=== PATIENT | male | born 1950 ===

== ENCOUNTER 2020-11-04 10:19 | Outpatient (REF) | payer MEDICARE, SELFPAY | END 2020-11-04 10:20 | disposition home or self-care (01) | LOC: HO.LAB 10:19 | PROVIDERS: PCP Internal Medicine; Visit Provider Internal Medicine | DX: Z20.828 Contact with and (suspected) exposure to other viral communicable diseases (principal) | CPT/HCPCS: C9803; U0003 ==

== ENCOUNTER 2020-11-16 09:52 | Emergency (ER) | payer MEDICARE, SELFPAY ==
[2020-11-16 10:07] VITALS: BP 137/61; PULSE 88; RESP 18; TEMP 37.3; O2SAT 100; BMI 32.0
[2020-11-16 11:14] LABS: Basophils Percent Auto 0.2 % (0-2); Eosinophils Percent Auto 0.6 % (0-4); Hematocrit 34.2 % (42-52); Hemoglobin 11.1 g/dl (14.0-18.0); Imm Gran Abs Auto 0.01 X10*3/uL (0.00-0.03); Imm Gran Pct Auto 0.2 % (0.0-0.4); Lymphocytes Absolute Auto 0.8 X10*3/uL (1.2-4.9); Lymphocytes Percent Auto 16.9 % (20-40); MANUAL DIFF FLAG NO; Mean Corpuscular HGB Conc 32.5 g/dl (31.0-36.0); Mean Corpuscular Hemoglobin 31.4 pg (27.0-33.0); Mean Corpuscular Volume 96.9 fL (80-98); Mean Platelet Volume 9.5 fL (9.4-12.4); Monocytes Absolute Auto 0.5 X10*3/uL (0.1-1.2); Monocytes Percent Auto 10.6 % (2-11); Neutrophils Absolute Auto 3.5 X10*3/uL (2.0-8.3); Neutrophils Percent Auto 71.5 % (45-73); Platelet Count 165 X10*3/uL (160-400); Red Blood Count 3.53 X10*6/uL (4.60-5.80); Red Cell Distribution Width 12.7 % (11.0-16.0); White Blood Count 4.9 X10*3/uL (4.8-10.8)
--- NOTE | 2020-11-16 11:37 | CT_ITS ---
EXAMINATION: CT ABDOMEN AND PELVIS WITHOUT CONTRAST CLINICAL INFORMATION: Epigastric and right-sided abdominal pain. COMPARISON: 01/01/2014 TECHNIQUE: Multidetector volumetric imaging was performed from the superior aspect of the liver through the pubic symphysis. Sagittal and coronal reformatted images were obtained on the technologist's workstation. This CT examination was performed using dose optimization techniques as appropriate, variously including the following: *Automated exposure control *Adjustment of mA and/or kV according to patient size (this includes techniques or standardized protocols for targeted exams where dose is matched to indication/reason for exam; i.e. extremities or head) *Use of iterative reconstruction technique DLP: 682 mGy-cm FINDINGS: LUNG BASES: There are scattered small patchy subpleural groundglass opacities at both posterior bases with linear scar versus disc atelectasis on the right. No effusion. LIVER, GALLBLADDER, AND BILIARY TREE: Liver is normal in size and smooth in contour and uniform in attenuation. There is been prior cholecystectomy. No focal hepatic parenchymal lesion. No biliary ductal dilatation. Common duct unremarkable. PANCREAS: Unremarkable. SPLEEN: Unremarkable. ADRENAL GLANDS: Unremarkable. KIDNEYS AND URETERS: There is bilateral cortical thinning kidneys. There is no hydronephrosis, hydroureter, urinary tract calculi, or perinephric stranding. Scattered small bilateral cysts of water attenuation are seen under 2 cm. There are some scattered renal vascular calcifications. BLADDER: Unremarkable. GASTROINTESTINAL TRACT: No bowel obstruction or inflammatory changes in the bowel or mesentery. The appendix is normal. There is no ascites or fluid collection. ABDOMINAL WALL: Small bilateral inguinal fat-containing hernias. LYMPH NODES: No lymphadenopathy. VASCULAR: Atherosclerotic calcifications aorta, iliacs, and renal arteries. PELVIC VISCERA: Enlarged prostate measuring approximately 4.2 x 6.3 x 4.9 cm. Seminal vesicles symmetric. OSSEOUS STRUCTURES: No acute bony abnormality. CT/CT abdomen pelvis wo con IMPRESSION: 1. No inflammatory changes in abdomen or pelvis. Normal appendix. No ascites. 2. Prior cholecystectomy. No ductal dilatation. 3. No hydronephrosis or urinary tract calculi. Small bilateral renal cysts and bilateral renal cortical thinning. 4. Enlarged prostate.
[2020-11-16 11:41] VITALS: BP 150/66; PULSE 83; RESP 18; TEMP 37.3; O2SAT 99
[2020-11-16] MEDS: ondansetron HCL 4 MG/2 ML VIAL IVPUSH (11:45)
[2020-11-16] MEDS: Famotidine/PF 20 MG/2 ML VIAL IVPUSH (11:50)
[2020-11-16] MEDS: Magnesium Hydrox/Alum Hydrox 30 ML ORAL.SUSP PO (11:50)
[2020-11-16 12:17] LABS: INTERNATIONAL NORM RATIO 1.1 (0.9-1.1); Prothrombin Time 12.8 SEC (10.8-13.0)
[2020-11-16 12:20] LABS: Partial Thromboplastin Time 29.6 SEC (24.1-38.0)
[2020-11-16 12:48] LABS: Influenza A PCR NEGATIVE (Negative); Influenza B PCR NEGATIVE (Negative); Resp Syncy Virus RNA Qual PCR NEGATIVE (Negative); SARS COV2 PCR INHOUSE POSITIVE (Negative)
[2020-11-16 12:52] LABS: Alanine Aminotransferase 29 U/L (0-40); Albumin Level 3.7 g/dL (3.5-5.0); Alkaline Phosphatase 67 U/L (39-117); Anion Gap 20 (12-20); Aspartate Amino Transferase 24 U/L (5-37); Bilirubin Direct 0.2 mg/dL (0.0-0.5); Bilirubin Total 0.4 mg/dL (0.0-1.0); Blood Urea Nitrogen 51 mg/dL (9-16); Carbon Dioxide 25 mmol/L (22-29); Chloride 101 mmol/L (96-108); Creatinine Clr Calc Pharmacy 8.4; Estimated Glomerular Filt Rate 6; Glucose Random 84 mg/dL (60-115); Potassium 5.1 mmol/l (3.3-5.1); Sodium 141 mmol/L (135-145); Total Protein 6.7 g/dL (6.5-8.0)
[2020-11-16 13:03] LABS: Lipase 184 U/L (8-78)
--- NOTE | 2020-11-16 13:14 | ED_ITS ---
HPI - Nausea/Vomiting/Diarrhea General Chief complaint: Abdominal Pain Stated complaint: vomiting for a week Time Seen by Provider: 11/16/20 11:21 Source: patient Mode of arrival: ambulatory History of Present Illness HPI Narrative: 70-year-old male with a past medical history of diabetes, hypertension, CKD on dialysis Monday/Monday, presenting to the ED complaining of epigastric abdominal pain, nausea, vomiting, and decreased p.o. intake x1 week. States last received dialysis on Monday and was scheduled for today but missed it. Denies fever, chills, cough, chest pain/shortness of breath, LE edema, sick contacts, suspicious food intake MD elicited complaint: nausea, vomiting and abdominal pain Related Data Previous Rx's Medication Instructions Recorded albuterol sulfate 2 puff INHALATION Q4-6H PRN #6.7 g 11/16/20 azithromycin See Rx Instructions .ROUTE 11/16/20 .COMPLEX #6 tab Allergies Allergy/AdvReac Type Severity Reaction Status Date / Time Penicillins [PENICILLINS] Allergy Unknown UNKNOWN Verified 11/16/20 10:10 Review of Systems Review of Systems: Constitutional: No Weight loss, No Fever, No Chills, No Night Sweats, No Fatigue, No Malaise Cardiovascular: No Chest Pain, No SOB Respiratory: No Cough, No Sputum, No Wheezing, No Smoke Exposure, No Dyspnea Gastrointestinal: + Nausea, + Vomiting, No Diarrhea, No Constipation, + Abdominal pain Genitourinary: No irregular bleeding, No Dysuria, No Urinary Frequency, No Hematuria Musculoskeletal: No joint pain, No Myalgias, No Joint Swelling Skin: No Skin Lesions, No rash Yes all other systems are reviewed and are negative [facility] Past Medical History Attestation statement: The following information was validated with the patient. Medical History (Updated 11/16/20 @ 15:16 by MARTHA Chavez) Diabetes HTN (hypertension) Kidney failure Social History Social History Smoked in Last 30 Days: No Use of substances other than those prescribed or required for medical reasons: No Advance Directives: No Advance Directives Information Provided: Yes Physical Exam Vital Signs: Vital Signs: Last Vital Signs Temp 99.2 F 11/16/20 11:41 Pulse 83 11/16/20 11:41 Resp 18 11/16/20 11:41 BP 150/66 H 11/16/20 11:41 Pulse Ox 99 11/16/20 11:41 Body Mass Index 32.0 Const: General: cooperative and healthy appearing Orientation/consciousness: patient oriented x3 Limitations: no limitations HENMT: Head: Yes normal to inspection Ears: hearing grossly normal bilaterally General nose exam: Normal external nose present Face and sinus: Yes normal facial exam Eyes: General: appearance normal, both eyes and all related structures EOM: EOMs intact bilaterally Neck: Neck: Yes normal visual inspection and Yes no meningeal signs Resp: Effort & Inspection: normal respiratory effort Auscultation: clear to auscultation bilaterally and no wheezes Cardio: Rate: regular rate Heart sounds: S1 normal heart sound present and S2 normal heart sound present GI: Inspection: Yes normal to inspection Palpation (GI): Soft to palpation, Tenderness to palpation present (GI) in the epigastrum, in the RLQ and in the RUQ, no guarding and not rigid Skin: Rashes: no rashes Wounds: no wounds Neuro: General: patient oriented x3 and no meningeal signs Extrem: General: Yes normal to inspection Course Course Course Narrative: * BUN/ creatinine elevated greater than baseline, as expected as patient missed dialysis today * COVID-19 positive * CT without inflammatory changes in the abdomen or pelvis. Normal appendix. 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 No indication for need of emergent dialysis at present. Lab and imaging results discussed with patient including need for dialysis tomorrow which he understands and feels safe for discharge home MDM - Nausea/Vomiting/Diarrhea MDM Narrative Medical decision making narrative: 70-year-old male with a past medical history of diabetes, hypertension, CKD on dialysis Monday/Monday, presenting to the ED complaining of epigastric abdominal pain, nausea, vomiting, and decreased p.o. intake x1 week. On exam VSS, NAD/well appearing, abdomen soft with RUQ/RLQ and epigastric ttp, no rebound or guarding. Concern for cholecystitis/cholelithiasis vs pancreatitis vs gastroenteritis/GERD vs appendicitis vs viral syndrome/COVID-19. Rule out metabolic abnormalities. Plan: EKG, labs, UA, COVID-19 testing, CT AP, reassess Lab Data Result diagrams: 11/16/20 11:08 11/16/20 12:06 Labs: Lab Results 11/16/20 11/16/20 11/16/20 Range/Units 11:08 11:08 12:02 WBC 4.9 (4.8-10.8) X10*3/uL RBC 3.53 L (4.60-5.80) X10*6/uL Hgb 11.1 L (14.0-18.0) g/dl Hct 34.2 L (42-52) % MCV 96.9 (80-98) fL MCH 31.4 (27.0-33.0) pg MCHC 32.5 (31.0-36.0) g/dl RDW 12.7 (11.0-16.0) % Plt Count 165 (160-400) X10*3/uL MPV 9.5 (9.4-12.4) fL Immature Gran % (Auto) 0.2 (0.0-0.4) % Neut % (Auto) 71.5 (45-73) % Lymph % (Auto) 16.9 L (20-40) % [place] % (Auto) 10.6 (2-11) % Eos % (Auto) 0.6 (0-4) % Baso % (Auto) 0.2 (0-2) % Lymph # (Auto) 0.8 L (1.2-4.9) X10*3/uL [place] # (Auto) 0.5 (0.1-1.2) X10*3/uL Eos # (Auto) 0.0 (0.0-0.4) X10*3/uL Baso # (Auto) 0.0 (0.0-0.2) X10*3/uL Abs Immat Gran (auto) 0.01 (0.00-0.03) X10*3/uL Absolute Neuts (auto) 3.5 (2.0-8.3) X10*3/uL Absolute Nucleated RBC 0.000 (0.0-0.012) X10*3/uL Nucleated RBC % (auto) 0.0 (0.0-0.2) /100WBC PT (10.8-13.0) SEC INR (0.9-1.1) APTT (24.1-38.0) SEC Sodium Cancelled Potassium Cancelled Chloride Cancelled Carbon Dioxide Cancelled Anion Gap Cancelled BUN Cancelled Creatinine Cancelled Estim Creat Clear Calc Cancelled Estimated GFR Cancelled Random Glucose Cancelled Calcium Cancelled Magnesium Cancelled Ferritin (20-250) ng/mL Total Bilirubin Cancelled Direct Bilirubin Cancelled AST Cancelled ALT Cancelled Alkaline Phosphatase Cancelled Lactate Dehydrogenase (118-273) U/L C-Reactive Protein (< or = 0.50) mg/dL Total Protein Cancelled Albumin Cancelled Lipase Cancelled Procalcitonin ng/mL Coronavirus (PCR) POSITIVE A (Negative) Influenza Type A (PCR) NEGATIVE (Negative) Influenza Type B (PCR) NEGATIVE (Negative) RSV RNA Qual (PCR) NEGATIVE (Negative) 11/16/20 11/16/20 11/16/20 Range/Units 12:06 12:06 13:04 WBC (4.8-10.8) X10*3/uL RBC (4.60-5.80) X10*6/uL Hgb (14.0-18.0) g/dl Hct (42-52) % MCV (80-98) fL MCH (27.0-33.0) pg MCHC (31.0-36.0) g/dl RDW (11.0-16.0) % Plt Count (160-400) X10*3/uL MPV (9.4-12.4) fL Immature Gran % (Auto) (0.0-0.4) % Neut % (Auto) (45-73) % Lymph % (Auto) (20-40) % [place] % (Auto) (2-11) % Eos % (Auto) (0-4) % Baso % (Auto) (0-2) % Lymph # (Auto) (1.2-4.9) X10*3/uL [place] # (Auto) (0.1-1.2) X10*3/uL Eos # (Auto) (0.0-0.4) X10*3/uL Baso # (Auto) (0.0-0.2) X10*3/uL Abs Immat Gran (auto) (0.00-0.03) X10*3/uL Absolute Neuts (auto) (2.0-8.3) X10*3/uL Absolute Nucleated RBC (0.0-0.012) X10*3/uL Nucleated RBC % (auto) (0.0-0.2) /100WBC PT 12.8 (10.8-13.0) SEC INR 1.1 (0.9-1.1) APTT 29.6 (24.1-38.0) SEC Sodium 141 Potassium 5.1 Chloride 101 Carbon Dioxide 25 Anion Gap 20 BUN 51 H Creatinine 8.54 H* Estim Creat Clear Calc 8.4 Estimated GFR 6 Random Glucose 84 Calcium 7.0 L Magnesium 2.0 Ferritin 3338 H (20-250) ng/mL Total Bilirubin 0.4 Direct Bilirubin 0.2 AST 24 ALT 29 Alkaline Phosphatase 67 Lactate Dehydrogenase 238 (118-273) U/L C-Reactive Protein 9.92 H (< or = 0.50) mg/dL Total Protein 6.7 Albumin 3.7 Lipase 184 H Procalcitonin 0.43 ng/mL Coronavirus (PCR) (Negative) Influenza Type A (PCR) (Negative) Influenza Type B (PCR) (Negative) RSV RNA Qual (PCR) (Negative) Discharge Plan Discharge Clinical Impression: COVID-19 Patient Disposition: Home, Self-Care Instructions: COVID-19 (Coronavirus Disease 2019) (ED) Additional Instructions: YOU HAVE COVID-19 YOU ALSO NEED DIALYSIS TOMORROW, WE SPOKE TO THE PIPE FINISHER AT [facility], YOU SHOULD BE SCHEDULED FOR TOMORROW AT THE [facility] AZITHROMYCIN AN ANTIBIOTIC, TAKE PRESCRIBED IN ADDITION USE ALBUTEROL INHALER NEEDED FOR SHORTNESS OF BREATH IF YOU FOR SOME REASON ARE UNABLE TO OBTAIN DIALYSIS TOMORROW RETURN TO THE EMERGENCY DEPARTMENT YOU NEED TO STAY HYDRATED AT HOME IF YOU DEVELOP CONSTANT WORSENING CHEST PAIN, SHORTNESS OF BREATH, ABDOMINAL PAIN, OR ARE UNABLE TO EAT OR DRINK RETURN TO THE ED IMMEDIATELY Prescriptions: New azithromycin 250 mg tablet See Rx Instructions .ROUTE .COMPLEX Qty: 6 RF: 0 albuterol sulfate 90 mcg/actuation HFA aerosol inhaler 2 puff inhalation Q4-6H PRN (Reason: shortness of breath or wheezing) Qty: 6.7 RF: 0 Referrals: Physician,None [Primary Care Provider] - 1 day (You need to follow-up for dialysis tomorrow)
--- NOTE | 2020-11-16 13:16 | XR_ITS ---
EXAMINATION: XR CHEST CLINICAL INFORMATION: COVID-19 COMPARISON: Chest radiographs 03/13/2017 TECHNIQUE: Portable upright AP view of the chest was obtained. FINDINGS: The lungs are clear. There is no airspace consolidation or definite groundglass opacity. No effusion. The costophrenic sulci are clear. The heart is normal in size. The hilar and mediastinal contours and visualized bony structures are unremarkable. Old healed mid left clavicular fracture again seen. XR/XR chest 1V IMPRESSION: Unremarkable examination.
[2020-11-16 14:07] LABS: C Reactive Protein 9.92 mg/dL (< or = 0.50); Lactate Dehydrogenase 238 U/L (118-273)
[2020-11-16 14:36] LABS: Procalcitonin 0.43 ng/mL
[2020-11-16 15:05] LABS: Ferritin 3338 ng/mL (20-250)
--- NOTE | 2020-11-16 15:17 | ECG_ITS ---
Test Reason : CHEST PAIN Blood Pressure : / mmHG Vent. Rate : 086 BPM Atrial Rate : 086 BPM P-R Int : 142 ms QRS Dur : 070 ms QT Int : 388 ms P-R-T Axes : 008 -21 -02 degrees QTc Int : 464 ms Sinus rhythm with Premature atrial complexes Nonspecific ST abnormality Abnormal ECG No previous ECGs available Referred By: Marissa Mackey Electronically Signed By:FARRAH HERNANDEZ
== END 2020-11-16 17:19 | disposition home or self-care (01) ==
PROVIDERS: Physician Assistant; Emergency Provider Emergency Medicine Emergency Medical Services
DX: U07.1 COVID-19 (principal); R10.13 Epigastric pain; R11.2 Nausea with vomiting, unspecified; Z79.899 Other long term (current) drug therapy
CPT/HCPCS: 0241U; 36415; 71045; 74176; 80048; 80076; 82728; 83615; 83690; 83735; 84145; 85025; 85610; 85730; 86140; 93005; 96374; 96375; 99284; J2405

== ENCOUNTER 2020-11-19 16:49 | Emergency (ER) | payer MEDICARE, SELFPAY ==
[2020-11-19 17:30] VITALS: BP 135/62; PULSE 90; RESP 18; TEMP 36.9; O2SAT 98; BMI 31.4
[2020-11-19 17:51] VITALS: BP 146/57; PULSE 85; RESP 18; TEMP 36.9; O2SAT 98
[2020-11-19 18:00] VITALS: BP 146/57; PULSE 85; RESP 18; TEMP 36.9; O2SAT 98
--- NOTE | 2020-11-19 18:00 | ED_ITS ---
HPI - General Adult General Chief complaint: General Medical Stated complaint: vomiting covid positive Time Seen by Provider: 11/19/20 17:06 Source: patient Mode of arrival: ambulatory History of Present Illness HPI narrative: 70-year-old male with a past medical history of diabetes, hypertension, COVID-19 positive, CKD on dialysis Monday/Monday (last received on Monday, due on Monday), presenting to the ED complaining of nausea, vomiting, and decreased p.o. intake. Reports about 3-4 episodes of nonbloody emesis daily, with inability tolerate p.o. Reports abdominal discomfort with emesis. Denies fever, chills, cough, CP/SOB, dysuria/hematuria, suspicious food intake Onset (ago): day(s) Related Data Previous Rx's Medication Instructions Recorded albuterol sulfate 2 puff INHALATION Q4-6H PRN #6.7 g 11/16/20 azithromycin See Rx Instructions .ROUTE 11/16/20 .COMPLEX #6 tab ondansetron HCl [Zofran] 4 mg PO Q8H PRN #8 tab 11/19/20 Allergies Allergy/AdvReac Type Severity Reaction Status Date / Time Penicillins [PENICILLINS] Allergy Unknown UNKNOWN Verified 11/16/20 10:10 Review of Systems Review of Systems: Constitutional: No Weight loss, No Fever, No Chills Cardiovascular: No Chest Pain, No SOB, No Dyspnea on Exertion Respiratory: No Cough, No Sputum, No Wheezing, No Smoke Exposure, No Dyspnea Gastrointestinal: + Nausea, + Vomiting, + Diarrhea, No Constipation, No Abdominal pain Genitourinary: No irregular bleeding, No Dysuria, No Urinary Frequency, No Hematuria Musculoskeletal: No joint pain, No Myalgias, No Joint Swelling Skin: No Skin Lesions, No rash Yes all other systems are reviewed and are negative PMFSH Past Medical History Attestation statement: The following information was validated with the patient. Medical History (Updated 11/19/20 @ 22:06 by MARTHA Chavez) Diabetes HTN (hypertension) Kidney failure Social History Social History Alcohol intake: current Alcohol intake frequency: holidays/special occasions on ly Smoking Status: Former smoker Smoked in Last 30 Days: No Use of substances other than those prescribed or required for medical reasons: No Advance Directives: No Advance Directives Information Provided: No Physical Exam Vital Signs: Vital Signs: Last Vital Signs Temp 98.5 F 11/19/20 21:30 Pulse 85 11/19/20 21:30 Resp 16 11/19/20 21:30 BP 148/61 H 11/19/20 21:30 Pulse Ox 99 11/19/20 21:30 Body Mass Index 31.4 Const: General: cooperative Orientation/consciousness: patient oriented x3 Limitations: no limitations HENMT: Head: Yes normal to inspection Ears: hearing grossly normal bilaterally General nose exam: Normal external nose present Face and sinus: Yes normal facial exam Eyes: General: appearance normal, both eyes and all related structures EOM: EOMs intact bilaterally Neck: Neck: Yes normal visual inspection and Yes no meningeal signs Resp: Effort & Inspection: normal respiratory effort Auscultation: clear to auscultation bilaterally, no rales, no rhonchi and no wheezes Cardio: Rate: regular rate Heart sounds: S1 normal heart sound present and S2 normal heart sound present GI: Inspection: Yes normal to inspection Palpation (GI): Soft to palpation, Tenderness to palpation present (GI) in the epigastrum and in the RUQ, no guarding and not rigid Skin: Rashes: no rashes Wounds: no wounds Neuro: General: patient oriented x3 and no meningeal signs Gait exam (Neuro): Normal gait present Extrem: Other: no LE edema General: Yes normal to inspection Course Course Course Narrative: * Creatinine 8.0 (baseline 4-5), lipase 197, likely from being HD patient> no evidence of fluid overload. likely from dehydration. No indication for emergent HD at this time. * UA unremarkable * 2200- pt tolerated PO xenia berta and saltines in the ED without nausea or vomiting. Reports he has scheduled dialysis on Monday due to holding tomorrow. I stressed to patient ports of staying hydrated at, and need for dialysis Monday. He verbalized understanding and feels safe for discharge home Medical Decision Making MDM Narrative Medical decision making narrative: 70-year-old male with a past medical history of diabetes, hypertension, COVID-19 positive, CKD on dialysis Monday/Monday (last received on Monday, due on Monday), presenting to the ED complaining of nausea, vomiting, and decreased p.o. intake. On exam VSS, NAD, well appearing, abdomen soft +RUQ/epigastric ttp. No rebound or guarding. Concern for COVID19 sx vs dehydration vs metabolic abnls. Low concern for intraabdominal pathology with neg CT on 11/16 Plan: Labs, UA, IVF, PO challenge, reassess Lab Data Result diagrams: 11/19/20 18:15 11/19/20 20:23 Labs: Lab Results 11/19/20 11/19/20 11/19/20 Range/Units 18:15 18:15 18:15 WBC 6.0 (4.8-10.8) X10*3/uL RBC 3.42 L (4.60-5.80) X10*6/uL Hgb 10.9 L (14.0-18.0) g/dl Hct 32.9 L (42-52) % MCV 96.2 (80-98) fL MCH 31.9 (27.0-33.0) pg MCHC 33.1 (31.0-36.0) g/dl RDW 12.7 (11.0-16.0) % Plt Count 214 D (160-400) X10*3/uL MPV 9.4 (9.4-12.4) fL Immature Gran % (Auto) 0.5 H (0.0-0.4) % Neut % (Auto) 77.8 H (45-73) % Lymph % (Auto) 12.0 L (20-40) % [place] % (Auto) 9.3 (2-11) % Eos % (Auto) 0.2 (0-4) % Baso % (Auto) 0.2 (0-2) % Lymph # (Auto) 0.7 L (1.2-4.9) X10*3/uL [place] # (Auto) 0.6 (0.1-1.2) X10*3/uL Eos # (Auto) 0.0 (0.0-0.4) X10*3/uL Baso # (Auto) 0.0 (0.0-0.2) X10*3/uL Abs Immat Gran (auto) 0.03 (0.00-0.03) X10*3/uL Absolute Neuts (auto) 4.7 (2.0-8.3) X10*3/uL Absolute Nucleated RBC 0.000 (0.0-0.012) X10*3/uL Nucleated RBC % (auto) 0.0 (0.0-0.2) /100WBC Hold Blue Top SEE NOTE Sodium Cancelled Potassium Cancelled Chloride Cancelled Carbon Dioxide Cancelled Anion Gap Cancelled BUN Cancelled Creatinine Cancelled Estim Creat Clear Calc Cancelled Estimated GFR Cancelled Random Glucose Cancelled Calcium Cancelled Magnesium Cancelled Total Bilirubin Cancelled Direct Bilirubin Cancelled AST Cancelled ALT Cancelled Alkaline Phosphatase Cancelled Total Protein Cancelled Albumin Cancelled Lipase Cancelled Urine Color Urine Appearance Urine pH (5.0-8.0) Ur Specific [place] (1.005-1.025) Urine Protein (NEG-TRACE) MG/DL Urine Glucose (UA) (NEG) MG/DL Urine Ketones (NEG) MG/DL Urine Blood (NEG) Urine Nitrite (NEG) Ur Leukocyte Esterase (NEG) Urine RBC (0) /HPF Urine WBC (0-4) /HPF Ur Squamous Epith Cells /LPF Urine Bacteria /LPF 11/19/20 11/19/20 Range/Units 20:23 Unknown WBC (4.8-10.8) X10*3/uL RBC (4.60-5.80) X10*6/uL Hgb (14.0-18.0) g/dl Hct (42-52) % MCV (80-98) fL MCH (27.0-33.0) pg MCHC (31.0-36.0) g/dl RDW (11.0-16.0) % Plt Count (160-400) X10*3/uL MPV (9.4-12.4) fL Immature Gran % (Auto) (0.0-0.4) % Neut % (Auto) (45-73) % Lymph % (Auto) (20-40) % [place] % (Auto) (2-11) % Eos % (Auto) (0-4) % Baso % (Auto) (0-2) % Lymph # (Auto) (1.2-4.9) X10*3/uL [place] # (Auto) (0.1-1.2) X10*3/uL Eos # (Auto) (0.0-0.4) X10*3/uL Baso # (Auto) (0.0-0.2) X10*3/uL Abs Immat Gran (auto) (0.00-0.03) X10*3/uL Absolute Neuts (auto) (2.0-8.3) X10*3/uL Absolute Nucleated RBC (0.0-0.012) X10*3/uL Nucleated RBC % (auto) (0.0-0.2) /100WBC Hold Blue Top Sodium 140 Potassium 4.9 Chloride 101 Carbon Dioxide 26 Anion Gap 18 BUN 48 H Creatinine 8.09 H* Estim Creat Clear Calc 8.8 Estimated GFR 7 Random Glucose 91 Calcium 6.6 L Magnesium 2.1 Total Bilirubin 0.3 Direct Bilirubin < 0.2 AST 28 ALT 25 Alkaline Phosphatase 64 Total Protein 6.5 Albumin 3.4 L Lipase 197 H Urine Color YELLOW Urine Appearance CLEAR Urine pH 8.5 H (5.0-8.0) Ur Specific [place] 1.015 (1.005-1.025) Urine Protein 2+ H (NEG-TRACE) MG/DL Urine Glucose (UA) NEG (NEG) MG/DL Urine Ketones NEG (NEG) MG/DL Urine Blood TRACE (NEG) Urine Nitrite NEG (NEG) Ur Leukocyte Esterase NEG (NEG) Urine RBC 1-4 (0) /HPF Urine WBC 0-2 (0-4) /HPF Ur Squamous Epith Cells TRACE /LPF Urine Bacteria TRACE /LPF Discharge Plan Discharge Clinical Impression: Nausea & vomiting Qualifiers: Vomiting type: unspecified Vomiting Intractability: non-intractable Qualified Code(s): R11.2 - Nausea with vomiting, unspecified Patient Disposition: Home, Self-Care Instructions: Acute Nausea and Vomiting (ED) Additional Instructions: You need to have dialysis on Monday as scheduled You need to stay hydrated at home, drink plenty of fluids, make sure you are eating Zofran as antinausea medication, take as needed for nausea If you are unable to eat or drink, develops fever, chest pain, shortness breath, or abdominal pain return to the ED immediately Prescriptions: New ondansetron HCl [Zofran] 4 mg tablet 4 mg PO Q8H PRN (Reason: nausea and vomiting) Qty: 8 RF: 0 No Action azithromycin 250 mg tablet See Rx Instructions .ROUTE .COMPLEX Qty: 6 RF: 0 albuterol sulfate 90 mcg/actuation HFA aerosol inhaler 2 puff inhalation Q4-6H PRN (Reason: shortness of breath or wheezing) Qty: 6.7 RF: 0 Referrals: Physician,Unknown [Primary Care Provider] - 2 days
[2020-11-19 18:22] LABS: MANUAL DIFF FLAG NO
[2020-11-19] MEDS: 0.9 % Sodium Chloride 1,000 ML 500 ML IVCONT (18:22)
[2020-11-19] MEDS: ondansetron HCL 4 MG/2 ML VIAL IVPUSH (18:22)
[2020-11-19 18:33] LABS: Basophils Percent Auto 0.2 % (0-2); Eosinophils Percent Auto 0.2 % (0-4); Hematocrit 32.9 % (42-52); Hemoglobin 10.9 g/dl (14.0-18.0); Imm Gran Abs Auto 0.03 X10*3/uL (0.00-0.03); Imm Gran Pct Auto 0.5 % (0.0-0.4); Lymphocytes Absolute Auto 0.7 X10*3/uL (1.2-4.9); Mean Corpuscular HGB Conc 33.1 g/dl (31.0-36.0); Mean Corpuscular Hemoglobin 31.9 pg (27.0-33.0); Mean Corpuscular Volume 96.2 fL (80-98); Mean Platelet Volume 9.4 fL (9.4-12.4); Monocytes Absolute Auto 0.6 X10*3/uL (0.1-1.2); Monocytes Percent Auto 9.3 % (2-11); Neutrophils Absolute Auto 4.7 X10*3/uL (2.0-8.3); Neutrophils Percent Auto 77.8 % (45-73); Platelet Count 214 X10*3/uL (160-400); Red Blood Count 3.42 X10*6/uL (4.60-5.80); Red Cell Distribution Width 12.7 % (11.0-16.0)
[2020-11-19 20:00] VITALS: BP 153/67; PULSE 89; RESP 23; TEMP 37.6; O2SAT 98
[2020-11-19 21:00] LABS: Alanine Aminotransferase 25 U/L (0-40); Albumin Level 3.4 g/dL (3.5-5.0); Alkaline Phosphatase 64 U/L (39-117); Anion Gap 18 (12-20); Aspartate Amino Transferase 28 U/L (5-37); Bilirubin Direct < 0.2 mg/dL (0.0-0.5); Bilirubin Total 0.3 mg/dL (0.0-1.0); Blood Urea Nitrogen 48 mg/dL (9-16); Calcium 6.6 mg/dL (8.4-10.2); Carbon Dioxide 26 mmol/L (22-29); Chloride 101 mmol/L (96-108); Creatinine Clr Calc Pharmacy 8.8; Estimated Glomerular Filt Rate 7; Glucose Random 91 mg/dL (60-115); Magnesium 2.1 mg/dL (1.6-2.6); Potassium 4.9 mmol/l (3.3-5.1); Sodium 140 mmol/L (135-145); Total Protein 6.5 g/dL (6.5-8.0)
[2020-11-19 21:00] LABS: Glucose Urine UA NEG (NEG); Leukocyte Esterase Urine NEG (NEG); Nitrite Urine NEG (NEG); PH 8.5 (5.0-8.0); Specific Gravity - Urine 1.015 (1.005-1.025); Urine Blood TRACE (NEG); Urine Ketones NEG (NEG)
[2020-11-19 21:01] LABS: Appearance Urine CLEAR; Color Urine YELLOW; Urine Protein 2+ MG/DL (NEG-TRACE)
[2020-11-19 21:15] LABS: Lipase 197 U/L (8-78)
[2020-11-19 21:15] LABS: Bacteria Urine TRACE /LPF; Squamous Epithelial Cell Urine TRACE /LPF; WBC Urine 0-2 /HPF (0-4)
[2020-11-19 21:30] VITALS: BP 148/61; PULSE 85; RESP 16; TEMP 36.9; O2SAT 99
[2020-11-19] MEDS: Acetaminophen 325 MG TABLET 650 MG PO (21:30)
--- NOTE | 2020-11-19 21:44 | PC.NURSE ---
SPOKE WITH PATIENT'S DAUGHTER (KEIRA) @ [phone]. AWARE OF PLAN TO OBTAIN ADDITIONAL LABS, WILL CALL WITH UPDATES. MEDICATED ORDERED BY HOANG MAHAN.
--- NOTE | 2020-11-19 21:57 | ECG_ITS ---
Test Reason : [id number] Blood Pressure : / mmHG Vent. Rate : 082 BPM Atrial Rate : 082 BPM P-R Int : 140 ms QRS Dur : 074 ms QT Int : 404 ms P-R-T Axes : 023 -22 004 degrees QTc Int : 472 ms Normal sinus rhythm Normal ECG When compared with ECG of 16-NOV-2020 16:19, Premature atrial complexes are no longer Present Referred By: Marissa Mackey Electronically Signed By:FARRAH HERNANDEZ
[2020-11-19 22:00] VITALS: BP 152/62; PULSE 88; RESP 18; TEMP 36.9; O2SAT 100
== END 2020-11-19 23:18 | disposition home or self-care (01) ==
PROVIDERS: Physician Assistant; Emergency Provider Emergency Medicine
DX: R11.2 Nausea with vomiting, unspecified (principal); I10 Essential (primary) hypertension; Z87.891 Personal history of nicotine dependence; Z79.899 Other long term (current) drug therapy; Z86.19 Personal history of other infectious and parasitic diseases
CPT/HCPCS: 36415; 80048; 80076; 81001; 83690; 83735; 85025; 93005; 96361; 96374; 99284; J2405

== ENCOUNTER 2021-02-04 08:07 | Outpatient (REF) | payer MEDICARE, SELFPAY ==
[2021-02-04 08:56] LABS: MANUAL DIFF FLAG NO
[2021-02-04 09:03] LABS: Basophils Percent Auto 0.6 % (0-2); Eosinophils Absolute Auto 0.2 X10*3/uL (0.0-0.4); Eosinophils Percent Auto 3.1 % (0-4); Hematocrit 31.7 % (42-52); Hemoglobin 10.5 g/dl (14.0-18.0); Imm Gran Abs Auto 0.01 X10*3/uL (0.00-0.03); Imm Gran Pct Auto 0.2 % (0.0-0.4); Lymphocytes Absolute Auto 1.9 X10*3/uL (1.2-4.9); Lymphocytes Percent Auto 29.2 % (20-40); Mean Corpuscular HGB Conc 33.1 g/dl (31.0-36.0); Mean Corpuscular Hemoglobin 32.7 pg (27.0-33.0); Mean Corpuscular Volume 98.8 fL (80-98); Monocytes Absolute Auto 0.6 X10*3/uL (0.1-1.2); Monocytes Percent Auto 9.2 % (2-11); Neutrophils Absolute Auto 3.7 X10*3/uL (2.0-8.3); Neutrophils Percent Auto 57.7 % (45-73); Platelet Count 230 X10*3/uL (160-400); Red Blood Count 3.21 X10*6/uL (4.60-5.80); Red Cell Distribution Width 13.2 % (11.0-16.0); Retic HGB Equivalent 36.5 pg (30.0-35.0); Reticulocyte Percent 1.2 % (0.5-1.8); Reticulocytes Absolute 0.037 X10*6/uL (0.026-0.095); White Blood Count 6.4 X10*3/uL (4.8-10.8)
[2021-02-04 09:25] LABS: Estimated Average Glucose 100 mg/dL; Hemoglobin A1c % 5.1 %
[2021-02-04 09:40] LABS: Creatinine Urine 99.41 mg/dL; Microalbum/Creatinine Ratio Ur 261.5 ug/mg cr
[2021-02-04 10:14] LABS: Alanine Aminotransferase 13 U/L (0-40); Alkaline Phosphatase 79 U/L (39-117); Anion Gap 19 (12-20); Aspartate Amino Transferase 14 U/L (5-37); Bilirubin Total 0.6 mg/dL (0.0-1.0); Blood Urea Nitrogen 75 mg/dL (9-16); Calcium 9.9 mg/dL (8.4-10.2); Carbon Dioxide 24 mmol/L (22-29); Chloride 104 mmol/L (96-108); Cholesterol 265 mg/dL; Estimated Glomerular Filt Rate 5; Glucose Random 84 mg/dL (60-115); HDL Cholesterol 37 mg/dL; Iron 174 mcg/dL (45-160); LDL Cholesterol Calculated 180 mg/dl; Percent Iron Saturation 85 % (15-50); Potassium 4.5 mmol/L (3.3-5.1); Sodium 142 mmol/L (135-145); Total Iron Binding Capacity 204 mcg/dL (228-428); Total Protein 6.9 g/dL (6.5-8.0); Triglycerides 241 mg/dL; Unsaturated Iron Binding 30 ug/dL; Uric Acid 6.5 mg/dL (3.4-7.0)
[2021-02-04 10:15] LABS: Free T4 (Free Thyroxine) 1.06 ng/dL (0.71-1.85); Thyroid Stimulating Hormone 0.92 uIU/mL (0.32-4.0); Vitamin D 25-OH Total 82.8 ng/mL (>30)
[2021-02-04 10:26] LABS: Folate 9.4 ng/mL (> or = 4.0); Vitamin B12 363 pg/mL (200-900)
[2021-02-04 11:55] LABS: Ferritin 1534 ng/mL (20-250)
[2021-02-08 16:11] LABS: Testosterone, Total 310 ng/dL (250-1100)
== END 2021-02-04 08:08 | disposition home or self-care (01) ==
LOC: HO.LAB 08:07
PROVIDERS: PCP Internal Medicine; Visit Provider Internal Medicine
DX: E11.65 Type 2 diabetes mellitus with hyperglycemia (principal); I10 Essential (primary) hypertension; N18.9 Chronic kidney disease, unspecified; D64.9 Anemia, unspecified; E78.00 Pure hypercholesterolemia, unspecified; N52.9 Male erectile dysfunction, unspecified
CPT/HCPCS: 36415; 80053; 80061; 82043; 82306; 82607; 82728; 82746; 83036; 83540; 84403; 84439; 84443; 84550; 85025; 85045

== ENCOUNTER 2021-02-17 08:48 | Outpatient (REF) | payer MEDICARE, SELFPAY ==
--- NOTE | 2021-02-18 08:39 | MHC.AU.ANO ---
Adult Audiological Evaluation Date of Visit: 02/17/21 Reason for Appointment: Patient reports that in October 2020, he was diagnosed with COVID-19. During his bout with COVID-19, he began experiencing constant sounds in both ears that were described as air hissing or rushing. He reports the sound has not gone away or improved since his COVID-19 has resolved, and is becoming bothersome. Patient reports that he typically experiences an ear infection about once a year. He developed an ear infection during his bout with COVID-19, which has long since resolved. Patient feels his overall hearing ability is still good. Has hearing been tested previously?: Previous Hearing Test Results: Patient had yearly hearing screenings by his employer. 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 History: No Medical History: Medical History: COVID-19 in October 2020, Hypertension, Kidney Disease, Type 2 Diabetes Otoscopy: Right Ear: Unremarkable Left Ear: Unremarkable Tympanometry: Tympanometry performed due to: To assess integrity of the middle ear system Right Ear: Slightly Reduced Middle Ear Compliance (Type As) Left Ear: Normal Middle Ear System (Type A) Acoustic Reflexes: Ipsilateral Probe Right: 500 Hz: Absent 1000 Hz: Absent 2000 Hz: Absent 4000 Hz: Absent Probe Left: 500 Hz: Present 1000 Hz: Present 2000 Hz: Present 4000 Hz: Absent Contralateral Probe Right: 500 Hz: Absent 1000 Hz: Absent 2000 Hz: Absent 4000 Hz: Absent Probe Left: 500 Hz: Absent 1000 Hz: Elevated 2000 Hz: Absent 4000 Hz: Absent Otoacoustic Emissions Frequency Range Used: 1.6-8 kHz Right Ear Results: Present 1.6 kHz, Reduced/Absent 2-8 kHz Analysis: Reduced/Absent emissions suggest cochlear dysfunction Left Ear Results: Present 1.6-8 kHz Analysis: Present emissions suggest normal cochlear function Rules out peripheral hearing loss greater than a mild degree Hearing Evaluation: Transducer(s) Used: Insert Earphones Method: Conventional Audiometry Stimuli Used: Pure Tones Right Ear: Description of Hearing: Overall normal/borderline-normal hearing; however, from 500-1500 Hz there is an asymmetry (right ear worse) that is sensorineural in nature. Left Ear: Description of Hearing: Normal 250-3000 Hz, sloping to mild sensorineural hearing loss Speech Recognition Threshold (SRT): Method Used: Recorded Lists Stimuli Used: Spondee Words Right Ear: 15 dBHL Left Ear: 5 dBHL Word Discrimination: Method: Recorded Lists Word Lists Used: NU-6 Right Ear: 100% at 55 dBHL Left Ear: 96% at 55 dBHL Interpretation of Results: Patient presents [id number] infection, with air hissing sounds in both ears that began during his bout with COVID-19 and have not subsided. Today's results suggest the right ear is of particular concern. The ipsilateral and contralateral acoustic reflexes for the right ear are absent, and the left contralateral reflexes were elevated or absent. The majority of the otoacoustic emissions in the right ear are reduced or absent. There is also a mid-frequency sensorineural asymmetry, where the right ear is worse. These objective results were alarming, given that the hearing thresholds in the right ear are within normal/ borderline-normal range. Further retrocochlear work-up may be warranted. Recommendations: Audiological re-evaluation in one year. Referral to Ear, Nose, and Throat is highly recommended to address today's abnormal findings. Amplification is not yet warranted. Diagnosis: Primary Diagnosis: H93.13 Tinnitus, Bilateral Services Performed: Comprehensive Audiological Evaluation (CPT 49879), Limited Otoacoustic Emissions (CPT 84706), Tympanometry and Acoustic Reflexes (CPT 78647) Signature: Provider: Leonarda Mantilla, [facility]
== END 2021-02-17 08:49 | disposition home or self-care (01) ==
LOC: HO.SH 08:48
PROVIDERS: Visit Provider Internal Medicine
DX: H93.13 Tinnitus, bilateral (principal)
CPT/HCPCS: 92550; 92557; 92587

== ENCOUNTER 2021-02-18 14:00 | Outpatient (REF) | payer MEDICARE, SELFPAY ==
--- NOTE | ~2021-02-18 | CT_ITS ---
EXAMINATION: CT CHEST WITHOUT CONTRAST CLINICAL INFORMATION: Solitary pulmonary nodule COMPARISON: 11/16/[address] from 07/05/2017. TECHNIQUE: Multidetector volumetric CT imaging of the chest was done. Axial MIP volume rendering provided. Sagittal and coronal reformatted images were obtained. This CT examination was performed using dose optimization techniques as appropriate, variously including the following: *Automated exposure control *Adjustment of mA and/or kV according to patient size (this includes techniques or standardized protocols for targeted exams where dose is matched to indication/reason for exam; i.e. extremities or head) *Use of iterative reconstruction technique DLP: 347 mGy-cm FINDINGS: PANTOGRAPH TRANSFERRER: Unremarkable. LUNGS: The central airways are patent. There is no dense consolidation. Minimal dependent atelectasis bilaterally. There is new anterior groundglass opacities seen in the left upper lobe with patchy appearance. Right upper lobe fissural nodule, unchanged likely representing a fissural lymph node. Calcified granulomata are noted. 0.2 cm left upper lobe pulmonary nodule on series 5 image 150 is unchanged from prior. No new suspicious pulmonary nodules. MEDIASTINUM: Normal heart size. Coronary artery calcifications. No pericardial effusion. No mediastinal lymphadenopathy. The thyroid gland is unremarkable. PLEURA: There is no pleural effusion. No pleural mass or thickening. No pneumothorax. AXILLA: No lymphadenopathy. UPPER ABDOMEN: Atrophic kidneys are partially imaged. No acute abnormality. OSSEOUS STRUCTURES: No acute or suspicious osseous abnormality. Multilevel degenerative changes of the spine. DISH. CT/CT chest wo con IMPRESSION: No suspicious pulmonary nodules. Previously seen small nodules are unchanged and likely benign. There are increased groundglass opacities in the left upper lobe which favor infectious or inflammatory process. Consider 3-6 month follow-up.
== END 2021-02-18 14:01 | disposition home or self-care (01) ==
LOC: HO.CT 14:00
PROVIDERS: Visit Provider Internal Medicine
DX: R91.1 Solitary pulmonary nodule (principal)
CPT/HCPCS: 71250

== ENCOUNTER 2021-05-11 07:26 | Outpatient (REF) | payer MEDICARE, SELFPAY ==
[2021-05-11 08:43] LABS: Creatinine Urine 153.56 mg/dL
[2021-05-11 09:00] LABS: Alanine Aminotransferase 12 U/L (0-40); Alkaline Phosphatase 86 U/L (39-117); Anion Gap 18 (12-20); Aspartate Amino Transferase 14 U/L (5-37); Bilirubin Total 0.5 mg/dL (0.0-1.0); Blood Urea Nitrogen 41 mg/dL (9-16); Calcium 10.1 mg/dL (8.4-10.2); Carbon Dioxide 26 mmol/L (22-29); Chloride 102 mmol/L (96-108); Cholesterol 291 mg/dL; Estimated Glomerular Filt Rate 8; Glucose Random 132 mg/dL (60-115); HDL Cholesterol 41 mg/dL; LDL Cholesterol Calculated 212 mg/dl; Potassium 4.3 mmol/L (3.3-5.1); Sodium 142 mmol/L (135-145); Total Protein 6.7 g/dL (6.5-8.0); Triglycerides 194 mg/dL
== END 2021-05-11 07:27 | disposition home or self-care (01) ==
LOC: HO.LAB 07:26
PROVIDERS: PCP Internal Medicine; Visit Provider Internal Medicine
DX: E78.00 Pure hypercholesterolemia, unspecified (principal); E11.65 Type 2 diabetes mellitus with hyperglycemia
CPT/HCPCS: 36415; 80053; 80061

== ENCOUNTER 2021-08-10 09:40 | Outpatient (REF) | payer MEDICARE, SELFPAY ==
--- NOTE | ~2021-08-10 | CT_ITS ---
EXAMINATION: CT CHEST WITHOUT CONTRAST CLINICAL INFORMATION: Follow-up pulmonary nodules COMPARISON: Previous chest CT February 2021 TECHNIQUE: Multidetector volumetric CT imaging of the chest was done. Axial MIP volume rendering provided. Sagittal and coronal reformatted images were obtained. This CT examination was performed using dose optimization techniques as appropriate, variously including the following: *Automated exposure control *Adjustment of mA and/or kV according to patient size (this includes techniques or standardized protocols for targeted exams where dose is matched to indication/reason for exam; i.e. extremities or head) *Use of iterative reconstruction technique DLP: 177 mGy-cm FINDINGS: LUNGS: There are increased groundglass attenuation areas in the left upper lobe. This does not appear appreciably changed from February 2021 exam. Largest areas measure approximately 1 cm axial image series 5 and 1.5 x 2.5 cm axial image 178 series 5. Small calcified and noncalcified pulmonary nodules are stable. Largest pulmonary nodule is a 5 mm peripheral or subpleural semisolid left upper lobe nodule axial image 88 series 5. No new pulmonary nodules are seen. There is evidence of mild paraseptal emphysema. No bronchiectasis or evidence of interstitial disease A MEDIASTINUM: The heart is upper normal in size. There is mild coronary artery and aortic valve calcification pericardial effusion. The thoracic aorta is normal in caliber. There are no enlarged hilar or mediastinal lymph nodes. PLEURA: There is no pleural effusion. No pleural mass or thickening. AXILLA: No chest wall mass or enlarged axillary lymph nodes are seen. There is a partially visualized left subclavian stent. UPPER ABDOMEN: There is bilateral renal cortical thinning. There is a 1 x 2 cm low-attenuation lesion exophytic to the upper pole of the right kidney probably representing a small cyst OSSEOUS STRUCTURES: There are degenerative changes of the spine. CT/CT chest wo con IMPRESSION: Stable pulmonary nodules.
== END 2021-08-10 09:41 | disposition home or self-care (01) ==
LOC: HO.CT 09:40
PROVIDERS: PCP Internal Medicine; Visit Provider Internal Medicine
DX: R91.1 Solitary pulmonary nodule (principal)
CPT/HCPCS: 71250

== ENCOUNTER 2022-11-28 07:55 | Outpatient (REF) | payer MEDICARE, SELFPAY ==
[2022-11-28 08:16] LABS: MANUAL DIFF FLAG NO
[2022-11-28 08:32] LABS: Basophils Percent Auto 0.6 % (0-2); Eosinophils Absolute Auto 0.1 X10*3/uL (0.0-0.4); Eosinophils Percent Auto 2.3 % (0-4); Hematocrit 31.8 % (42.0-52.0); Hemoglobin 10.2 g/dl (14.0-18.0); Imm Gran Abs Auto 0.05 X10*3/uL (0.00-0.03); Imm Gran Pct Auto 0.9 % (0.0-0.4); Lymphocytes Percent Auto 37.3 % (20-40); Mean Corpuscular HGB Conc 32.1 g/dl (31.0-36.0); Mean Corpuscular Hemoglobin 30.3 pg (27.0-33.0); Mean Corpuscular Volume 94.4 fL (80.0-98.0); Mean Platelet Volume 9.8 fL (9.4-12.4); Monocytes Absolute Auto 0.4 X10*3/uL (0.1-1.2); Monocytes Percent Auto 8.3 % (2-11); Neutrophils Absolute Auto 2.7 x10*3/uL (2.0-8.3); Neutrophils Percent Auto 50.6 % (45-73); Platelet Count 144 X10*3/uL (160-400); Red Blood Count 3.37 X10*6/uL (4.60-5.80); Red Cell Distribution Width 14.7 % (11.0-16.0); White Blood Count 5.3 X10*3/uL (4.8-10.8)
[2022-11-28 09:11] LABS: Alanine Aminotransferase 17 U/L (0-40); Alkaline Phosphatase 155 U/L (39-117); Anion Gap 13 (12-20); Aspartate Amino Transferase 16 U/L (5-37); Bilirubin Total 0.6 mg/dL (0.0-1.0); Blood Urea Nitrogen 42 mg/dL (9-16); Calcium 9.8 mg/dL (8.4-10.2); Carbon Dioxide 21 mmol/L (22-29); Chloride 115 mmol/L (96-108); Cholesterol 114 mg/dL; Estimated Glomerular Filt Rate 27; Glucose Random 117 mg/dL (60-115); HDL Cholesterol 45 mg/dL; LDL Cholesterol Calculated 53 mg/dl; Potassium 4.7 mmol/L (3.3-5.1); Sodium 144 mmol/L (135-145); Total Protein 6.4 g/dL (6.5-8.0); Triglycerides 83 mg/dL
[2022-11-28 09:15] LABS: Thyroid Stimulating Hormone 1.93 uIU/mL (0.32-4.0)
[2022-11-28 09:17] LABS: Prostate Specific Antigen 2.35 ng/mL (<0.05-4.0)
[2022-11-28 09:31] LABS: Folate > 20.0 ng/mL (> or = 4.0); Vitamin B12 378 pg/mL (200-900)
== END 2022-11-28 07:56 | disposition home or self-care (01) ==
LOC: HO.LAB 07:55
PROVIDERS: Nurse Practitioner Family; PCP Internal Medicine; Visit Provider Internal Medicine
DX: E78.00 Pure hypercholesterolemia, unspecified (principal); I10 Essential (primary) hypertension; Z98.890 Other specified postprocedural states; Z12.5 Encounter for screening for malignant neoplasm of prostate
CPT/HCPCS: 36415; 80053; 80061; 82607; 82746; 84153; 84439; 84443; 85025

== ENCOUNTER 2023-02-06 08:43 | Outpatient (REF) | payer MEDICARE, SELFPAY ==
[2023-02-06 10:46] LABS: INTERNATIONAL NORM RATIO 1.3 (0.9-1.1); Prothrombin Time 15.2 SEC (10.0-13.1)
[2023-02-06 11:55] LABS: Hepatitis A Antibody IgG REACTIVE (Nonreactive); ~Hepatitis A Antibody IgG 9.95 S/CO (0.00-0.99)
[2023-02-06 11:58] LABS: Alanine Aminotransferase 15 U/L (0-40); Albumin Level 4.1 g/dL (3.5-5.0); Alkaline Phosphatase 139 U/L (39-117); Anion Gap 14 (12-20); Aspartate Amino Transferase 16 U/L (5-37); Bilirubin Total 0.7 mg/dL (0.0-1.0); Blood Urea Nitrogen 46 mg/dL (9-16); Calcium 9.6 mg/dL (8.4-10.2); Carbon Dioxide 23 mmol/L (22-29); Chloride 112 mmol/L (96-108); Estimated Glomerular Filt Rate 22; Glucose Random 227 mg/dL (60-115); HBsAGNum1 0.31 S/CO (0.00-0.99); HIV AB/AG Nonreactive (Nonreactive); HIV Num 1 0.05 S/CO (0.00-0.99); Hepatitis B Surface Antigen Negative (Negative); Potassium 4.6 mmol/L (3.3-5.1); Sodium 144 mmol/L (135-145); Total Protein 6.3 g/dL (6.5-8.0); ~HepC Num1 8.34 S/CO (0.00-0.79); ~Hepatitis B Surface Antibody REACTIVE (Nonreactive); ~Hepatitis C Antibody Reactive (Nonreactive)
[2023-02-06 12:30] LABS: Folate 18.7 ng/mL (> or = 4.0); Gamma Glutamyl Transpeptidase 160 U/L (11-51); TSH reflex Free T4 1.35 uIU/mL (0.32-4.0); Vitamin B12 381 pg/mL (200-900); Vitamin D 25-OH Total 34.3 ng/mL (>30)
[2023-02-06 13:47] LABS: HBc Num2 10.77 S/CO; HBc Num3 10.75 S/CO
[2023-02-06 13:48] LABS: Hepatitis B Core Antibody Reactive (Nonreactive)
[2023-02-08 12:09] LABS: Transglutaminase IgA <1.0 U/mL
[2023-02-08 13:53] LABS: HCV Log PCR <1.18 NOT DETECTED Log IU/mL (NOT DETECTED); HepC Viral Load <15 NOT DETECTED IU/mL (NOT DETECTED)
[2023-02-08 15:03] LABS: Immunoglobulin A 213 mg/dL (70-320)
[2023-02-13 23:49] LABS: Alkaline Phosphatase Bone 25.8 mcg/L (see note)
== END 2023-02-06 08:44 | disposition home or self-care (01) ==
LOC: HO.LAB 08:43
PROVIDERS: PCP Internal Medicine; Visit Provider Internal Medicine
DX: Z11.4 Encounter for screening for human immunodeficiency virus [HIV] (principal); R10.9 Unspecified abdominal pain; R14.0 Abdominal distension (gaseous); R74.8 Abnormal levels of other serum enzymes; Z86.19 Personal history of other infectious and parasitic diseases
CPT/HCPCS: 36415; 80053; 82306; 82607; 82746; 82784; 82977; 84075; 84443; 85610; 86364; 86704; 86706; 86708; 86803; 87340; 87389; 87522; 99202

== ENCOUNTER → 2023-02-07 12:52 | Outpatient (BNVA) | payer MEDICARE, SELFPAY | PROVIDERS: PCP Internal Medicine; Visit Provider Nurse Practitioner Family | DX: G47.33 Obstructive sleep apnea (adult) (pediatric) (principal); F03.90 Unspecified dementia, unspecified severity, without behavioral disturbance, psychotic disturbance, mood disturbance, and anxiety | CPT/HCPCS: 99202 ==

== ENCOUNTER 2023-02-16 11:13 | Day surgery (SDC) | payer MEDICARE, SELFPAY ==
[2023-02-13 09:37] VITALS: BMI 31.4
--- NOTE | 2023-02-15 10:44 | P.CONAN_ITS ---
Documented by User: uNrys Tinoco NP 02/15/23 10:53 HPI - Anesthesia Eval Consult details Narrative: 72yo M for Upper Endoscopy s/p renal transplant 09/2021. Baseline creat 2.1-2.3 PMFSH Active Problems Active Problems: All Active Problems (Updated 02/13/23 @ 09:38 by Orin Montejo RN) COVID-19 (Acute) Type 2 diabetes mellitus with hyperglycemia (Acute) Chronic kidney disease (Acute) Erectile dysfunction (Acute) Hearing loss (Acute) Gout (Acute) Tinnitus (Acute) Obstructive sleep apnea (adult) (pediatric) (Acute) Renal transplant recipient (Acute) Adult general medical exam (Acute) Abdominal pain (Acute) Bloating (Acute) Elevated alkaline phosphatase level (Acute) History of hepatitis C (Acute) Dementia (Acute) Pulmonary nodule, left (Acute) Hypercholesterolemia (Acute) Obesity (BMI 30-39.9) (Acute) HTN (hypertension) (Acute) Anemia (Acute) Past Medical History Medical History (Updated 02/13/23 @ 09:38 by Orin Montejo RN) Anemia BPH (benign prostatic hyperplasia) Cervical spondylosis Hepatitis C virus infection cured after antiviral drug therapy HTN (hypertension) Hypercholesterolemia Kidney failure Obesity (BMI 30-39.9) Pulmonary nodule, left Right patella fracture Screening for prostate cancer Family History Family History Father No problems noted. Mother No problems noted. Brother No problems noted. Brother No problems noted. Surgical History Surgical History (Updated 02/13/23 @ 09:32 by Orin Montejo RN) Fistula of artery History of cholecystectomy History of colonoscopy History of renal transplant Social History Social History Housing: House Alcohol intake: never Patient Tobacco Use Status: Former Tobacco user Tobacco use type: Cigarette e-Cigarette/Vaping Use: Never Used Are you DNR?: No Advance Directives: No Advance Directives Information Provided: Yes Recently lost weight without trying: No Nutrition Risks: No Nutritional Risk service: No Current occupational status: retired Cognitive needs: No Hearing needs: No Vision needs: Yes Meds Allergies Allergy/AdvReac Type Severity Reaction Status Date / Time Penicillins [PENICILLINS] Allergy Unknown UNKNOWN Verified 02/07/23 13:00 rosuvastatin [From Crestor] Allergy Muscle Pain Verified 02/16/23 12:24 atorvastatin [From Lipitor] AdvReac Muscle Pain Verified 02/16/23 12:24 Home Medications Medication Instructions Recorded Confirmed Last Taken Type docusate sodium 100 mg capsule 200 mg PO DAILY 02/03/21 02/13/23 Unknown History (Colace) folic acid 1 mg tablet 1 mg PO DAILY 02/08/22 02/13/23 Unknown History magnesium oxide 400 mg (241.3 mg 400 mg PO DAILY 02/08/22 02/13/23 Unknown Hi story magnesium) tablet sennosides 8.6 mg tablet (Natural 8.6 mg PO DAILY 02/08/22 02/13/23 Unknown History Senna Laxative) carvedilol 25 mg tablet 25 mg PO BID 01/11/23 02/13/23 02/16/23 History cinacalcet 30 mg tablet 30 mg PO DAILY 01/11/23 02/13/23 02/16/23 History doxazosin 4 mg tablet 4 mg PO BEDTIME 01/11/23 02/13/23 Unknown History empagliflozin 10 mg tablet 10 mg PO DAILY 01/11/23 02/13/23 Unknown History (Jardiance) furosemide 20 mg tablet 20 mg PO BID 01/11/23 02/13/23 Unknown History nifedipine 60 mg tablet,extended 60 mg PO BID 01/11/23 02/13/23 02/16/23 History release 24 hr rosuvastatin 5 mg tablet 5 mg PO DAILY 01/11/23 02/13/23 Unknown History mycophenolate mofetil 250 mg 360 mg PO ONCE 02/06/23 02/16/23 History capsule Exam Exam Date and Time: February 15, 2023 1044 Height,Weight and Vital Signs: Height 5 ft 7 in Weight 91 kg Pertinent Lab Results Pertinent Lab Results: Laboratory Tests 11/28/22 02/06/23 08:15 10:19 WBC 5.3 Hgb 10.2 L Hct 31.8 L Plt Count 144 L Sodium 144 Potassium 4.6 Chloride 112 H Carbon Dioxide 23 BUN 46 H Creatinine 2.81 H Assessment and Plan Assessment Anesthesia Assessment: Chart Reviewed Documented by User: Sujey Jorge MD 02/16/23 12:52 [facility] Past Medical History Medical History (Updated 02/13/23 @ 09:38 by Orin Montejo RN) Anemia BPH (benign prostatic hyperplasia) Cervical spondylosis Hepatitis C virus infection cured after antiviral drug therapy HTN (hypertension) Hypercholesterolemia Kidney failure Obesity (BMI 30-39.9) Pulmonary nodule, left Right patella fracture Screening for prostate cancer Family History Family History Father No problems noted. Mother No problems noted. Brother No problems noted. Brother No problems noted. Family history of problems with anesthesia: No Surgical History Surgical History (Updated 02/13/23 @ 09:32 by Orin Montejo RN) Fistula of artery History of cholecystectomy History of colonoscopy History of renal transplant History of Problems with Anesthesia: No Social History Social History Housing: House Alcohol intake: never Patient Tobacco Use Status: Former Tobacco user Tobacco use type: Cigarette e-Cigarette/Vaping Use: Never Used Are you DNR?: No Advance Directives: No Advance Directives Information Provided: Yes Recently lost weight without trying: No Nutrition Risks: No Nutritional Risk service: No Current occupational status: retired Cognitive needs: No Hearing needs: No Vision needs: Yes Meds Allergies Allergy/AdvReac Type Severity Reaction Status Date / Time Penicillins [PENICILLINS] Allergy Unknown UNKNOWN Verified 02/07/23 13:00 rosuvastatin [From Crestor] Allergy Muscle Pain Verified 02/16/23 12:24 atorvastatin [From Lipitor] AdvReac Muscle Pain Verified 02/16/23 12:24 Home Medications Medication Instructions Recorded Confirmed Last Taken Type docusate sodium 100 mg capsule 200 mg PO DAILY 02/03/21 02/13/23 Unknown History (Colace) folic acid 1 mg tablet 1 mg PO DAILY 02/08/22 02/13/23 Unknown History magnesium oxide 400 mg (241.3 mg 400 mg PO DAILY 02/08/22 02/13/23 Unknown History magnesium) tablet sennosides 8.6 mg tablet (Natural 8.6 mg PO DAILY 02/08/22 02/13/23 Unknown History Senna Laxative) carvedilol 25 mg tablet 25 mg PO BID 01/11/23 02/13/23 02/16/23 History cinacalcet 30 mg tablet 30 mg PO DAILY 01/11/23 02/13/23 02/16/23 History doxazosin 4 mg tablet 4 mg PO BEDTIME 01/11/23 02/13/23 Unknown History empagliflozin 10 mg tablet 10 mg PO DAILY 01/11/23 02/13/23 Unknown History (Jardiance) furosemide 20 mg tablet 20 mg PO BID 01/11/23 02/13/23 Unknown History nifedipine 60 mg tablet,extended 60 mg PO BID 01/11/23 02/13/23 02/16/23 History release 24 hr rosuvastatin 5 mg tablet 5 mg PO DAILY 01/11/23 02/13/23 Unknown History mycophenolate mofetil 250 mg 360 mg PO ONCE 02/06/23 02/16/23 History capsule Exam Airway Mallampati Class: II TM Dist: >3cm Neck ROM: Full Loose/Missing/Broken Teeth: Yes Heart: rr Lungs: cta Assessment and Plan Final Anesthetic Review Family History of Problems with Anesthesia: No History of Problems with Anesthesia: No ASA Class: III Final Preanesthetic Review: No Changes in Pt Med Stat, Meds/Allgs Chart Reviewed, Consent Obtained/Reviewed and Anes Risks/Benef Reviewed Patient Risk: Low Procedure Risk: Low Anesthetic Plan Anesthetic Plan: MAC: Disposition: Standard PACU
[2023-02-16 11:58] VITALS: BP 144/60; PULSE 72; RESP 20; TEMP 36.1; O2SAT 97
[2023-02-16 12:01] LABS: Glucose, Whole Blood 129 mg/dL (60-115)
--- NOTE | 2023-02-16 12:21 | MHC.SHP ---
Pre-Procedural Eval Section A Date of Service: 02/16/23 The History & Physical has been completed within 30 days and I have reviewed it.: Yes Section B Chief Complaint: Unspecified abdominal pain,nausea Allergies: Allergies Allergy/AdvReac Type Severity Reaction Status Date / Time Penicillins [PENICILLINS] Allergy Unknown UNKNOWN Verified 02/07/23 13:00 Plan Diagnosis/Plan: Unchanged I have reviewed the history and physical and performed a pertinent physical examination on my patient. No changes have occurred unless specified. Time Spent With Patient Time: Total time managing care of this patient today ____ minutes.
[2023-02-16] MEDS: 0.9 % Sodium Chloride 1,000 ML 50 ML IVCONT (12:34)
--- NOTE | 2023-02-16 12:47 | P.OP_ITS ---
Operative Note Operative Note Date of Service: 02/16/23 Narrative: Procedure: Esophagogastroduodenoscopy Endoscopist: Reena Flores MD Indication: Abd pain Anesthesia Provider: Myah Wayne CRNA Anesthesia Type: MAC ?? EGD Procedure:?? The procedure, indications, preparation and potential complications were reviewed with the patient, who indicated understanding and gave written informed consent to proceed. A physical exam was performed. The endoscope was introduced through the mouth, and advanced to the second part of duodenum. The mucosa was carefully examined on slow withdrawal of the endoscope. The patient tolerated the procedure well. There were no immediate complications.? ? EGD Findings:? * Esophagus:? Normal mucosa noted in the entire esophagus. The Z line was at 37 and irregular up to 36 cm. Cold forceps biospies were taken to rule out Munroe's esophagus. A small hiatal hernia was noted with diaphragmatic pinch at 39 cm. A focal patch of heterotopic gastric mucosa was noted at the level of cricopharyngeus. * Stomach:? Normal mucosa was noted in the stomach with scant heme without any obvious erosions. Random gastric biopsies were taken to rule out H Pylori infection. * Duodenum:? An aggregate of duodenal polyps was noted in the duodenal bulb. Cold forceps biopsies were taken. The major papilla was also noted to be fairly prominent, cold forceps biopsies were taken to rule out adenoma. Biopsies were also taken from duodenal bulb and second portion of the duodenum to rule out celiac sprue. ? EGD Impressions:? * Irregular Z line (biopsy) * Hiatal hernia * Inlet patch * Normal stomach (biopsy) * Duodenal polyps (biopsy) * Enlarged major papilla (biopsy) ?? Recommendations:?? * Follow biopsy results. Our office will call or send a letter with results within 7-10 days. * Pt has nephrology visit tmrw to review PPI use. * If H pylori +, patient will be prescribed eradication therapy followed by test of cure. * Avoid NSAIDs. Above has been reviewed with the patient. Relevant educational hand outs were provided at discharge.
[2023-02-16 12:55] VITALS: BP 117/40; PULSE 64; RESP 16; TEMP 36.3; O2SAT 100
[2023-02-16 13:10] VITALS: BP 124/73; PULSE 64; RESP 16; O2SAT 97
== END 2023-02-16 14:25 | disposition home or self-care (01) ==
PROVIDERS: PCP Internal Medicine; Visit Provider Internal Medicine
PROC: 0DJ08ZZ Inspection of Upper Intestinal Tract, Via Natural or Artificial Opening Endoscopic (ICD-10-PCS; CPT 43235; principal; 2023-02-16 13:20)
DX: R10.9 Unspecified abdominal pain (principal); R11.0 Nausea; E11.22 Type 2 diabetes mellitus with diabetic chronic kidney disease; I12.9 Hypertensive chronic kidney disease with stage 1 through stage 4 chronic kidney disease, or unspecified chronic kidney disease; N18.9 Chronic kidney disease, unspecified; Z94.0 Kidney transplant status; K44.9 Diaphragmatic hernia without obstruction or gangrene; K22.89 Other specified disease of esophagus; K31.7 Polyp of stomach and duodenum; K83.8 Other specified diseases of biliary tract; Q39.8 Other congenital malformations of esophagus; E78.00 Pure hypercholesterolemia, unspecified; G47.33 Obstructive sleep apnea (adult) (pediatric); R91.1 Solitary pulmonary nodule; M47.812 Spondylosis without myelopathy or radiculopathy, cervical region; M10.9 Gout, unspecified; D64.9 Anemia, unspecified; E66.9 Obesity, unspecified; Z68.31 Body mass index [BMI] 31.0-31.9, adult; Z79.84 Long term (current) use of oral hypoglycemic drugs; Z79.899 Other long term (current) drug therapy; Z88.0 Allergy status to penicillin; Z88.8 Allergy status to other drugs, medicaments and biological substances; Z90.49 Acquired absence of other specified parts of digestive tract; Z86.19 Personal history of other infectious and parasitic diseases; Z87.891 Personal history of nicotine dependence
CPT/HCPCS: 43239; 82947; 88305; 88342

== ENCOUNTER 2023-02-21 11:06 | Outpatient (REF) | payer MEDICARE, SELFPAY ==
--- NOTE | ~2023-02-21 | US_ITS ---
EXAMINATION: US ABDOMEN COMPLETE CLINICAL INFORMATION: Abdominal pain. COMPARISON: CT abdomen and pelvis without contrast 11/16/2020. TECHNIQUE: Real-time imaging of the abdominal viscera. FINDINGS: PANCREAS: Normal. ABDOMINAL AORTA: The proximal, mid, and distal segments are normal in caliber. INFERIOR VENA CAVA: Visualized portions are normal. LIVER: The liver is normal in size. The liver contour is normal. Parenchymal echogenicity is heterogeneous. No focal hepatic lesion. There is no intrahepatic biliary duct dilatation seen. There is free fluid adjacent to the left hepatic lobe. GALLBLADDER: Gallbladder has been surgically removed. COMMON BILE DUCT: Normal in caliber measuring 0.4 cm in diameter. RIGHT KIDNEY: Atrophic. Patient has a renal transplant. LEFT KIDNEY: Atrophic with a small anechoic cyst in midpole measuring 1.8 x 1.3 x 1.6 cm. SPLEEN: The spleen measures 11.1 cm in maximum dimension. Trace free fluid seen around the spleen. FREE FLUID: Trace fluid seen. There is a right renal transplant with mild pelvic fullness less likely hydro. It measures 11.2 cm. There is normal renal arterial and venous flow seen. US/US abdomen complete IMPRESSION: 1. Heterogeneous liver without focal lesion. 2. Atrophic [place] kidneys with a small cyst in midpole left kidney. 3. The gallbladder has been surgically removed. 4. There is trace free fluid adjacent to the left hepatic lobe and spleen. 5. There is a right renal transplant noted with mild pelvic fullness.
== END 2023-02-21 11:07 | disposition home or self-care (01) ==
LOC: HO.US 11:06
PROVIDERS: PCP Internal Medicine; Visit Provider Internal Medicine
DX: R10.9 Unspecified abdominal pain (principal)
CPT/HCPCS: 76700

== ENCOUNTER → 2023-03-01 09:52 | Outpatient (BNVA) | payer MEDICARE, SELFPAY | PROVIDERS: PCP Internal Medicine; Visit Provider Internal Medicine | DX: R74.8 Abnormal levels of other serum enzymes (principal); R10.9 Unspecified abdominal pain; R14.0 Abdominal distension (gaseous); R76.8 Other specified abnormal immunological findings in serum; Z86.19 Personal history of other infectious and parasitic diseases | CPT/HCPCS: 99212 ==

== ENCOUNTER 2023-03-24 07:58 | Outpatient (REF) | payer MEDICARE, SELFPAY ==
--- NOTE | ~2023-03-24 | FL_ITS ---
EXAMINATION: FL UPPER GI BARIUM SWALLOW CLINICAL INDICATIONS: Abdominal distention. COMPARISON: CT abdomen and pelvis 11/08/2020. TECHNIQUE: Routine upper GI air-contrast study was performed in upright and lying position. FINDINGS: Following oral administration of thick barium and effervescent granules there is normal propagation of bolus from the oral cavity through the pharynx, esophagus into stomach without any evidence of obstruction, narrowing or stricture. On placing patient supine and prone lying, the course, caliber and peristalsis of the stomach, duodenal bulb and the sweep are normal. There is mild gastroesophageal reflux without hiatal hernia. FLUOROSCOPY TIME: 2.1 minutes. DOSE AREA PRODUCT: 43.573 uGy-cm2 FL/FL upper GI w Ba Swallow IMPRESSION: Mild gastroesophageal reflux otherwise unremarkable upper GI air-contrast study.
== END 2023-03-24 07:59 | disposition home or self-care (01) ==
LOC: HO.XRAY 07:58
PROVIDERS: PCP Internal Medicine; Visit Provider Internal Medicine
DX: R14.0 Abdominal distension (gaseous) (principal); R10.9 Unspecified abdominal pain
CPT/HCPCS: 74240

== ENCOUNTER → 2023-04-19 09:35 | Outpatient (BNVA) | payer MEDICARE, SELFPAY | PROVIDERS: PCP Internal Medicine; Visit Provider Internal Medicine | DX: R14.0 Abdominal distension (gaseous) (principal); R10.9 Unspecified abdominal pain; R74.8 Abnormal levels of other serum enzymes; R76.8 Other specified abnormal immunological findings in serum; Z86.19 Personal history of other infectious and parasitic diseases | CPT/HCPCS: 99212 ==

== ENCOUNTER 2023-05-08 10:36 | Outpatient (REF) | payer MEDICARE, SELFPAY ==
[2023-05-08 12:08] LABS: Alanine Aminotransferase 10 U/L (0-40); Albumin Level 3.9 g/dL (3.5-5.0); Alkaline Phosphatase 126 U/L (39-117); Aspartate Amino Transferase 18 U/L (5-37); Bilirubin Direct 0.3 mg/dL (0.0-0.5); Bilirubin Total 0.8 mg/dL (0.0-1.0); Total Protein 6.5 g/dL (6.5-8.0)
[2023-05-08 12:15] LABS: Ferritin 766 ng/mL (20-250)
[2023-05-08 12:19] LABS: HBsAGNum1 0.36 S/CO (0.00-0.99); Hepatitis B Surface Antigen Negative (Negative); ~Hepatitis B Surface Antibody REACTIVE (Nonreactive)
[2023-05-09 23:03] LABS: Hepatitis BE Antibody NON-REACTIVE (NON-REACTIVE)
[2023-05-10 00:14] LABS: Hepatitis BE Antigen NON-REACTIVE (NON-REACTIVE)
[2023-05-10 14:58] LABS: Hepatitis B Viral DNA Qn - cp NOT DETECTED Log IU/mL (NOT DETECTED); Hepatitis B Viral DNA Qn-IU/mL NOT DETECTED (NOT DETECTED)
== END 2023-05-08 10:37 | disposition home or self-care (01) ==
LOC: HO.LAB 10:36
PROVIDERS: PCP Internal Medicine; Visit Provider Internal Medicine
DX: R74.8 Abnormal levels of other serum enzymes (principal); R10.9 Unspecified abdominal pain; R14.0 Abdominal distension (gaseous); R76.8 Other specified abnormal immunological findings in serum; Z86.19 Personal history of other infectious and parasitic diseases
CPT/HCPCS: 36415; 80076; 82728; 86706; 86707; 87340; 87350; 87517; 99212

== ENCOUNTER 2023-06-05 09:51 | Observation (INO) | payer MEDICARE, SELFPAY ==
--- NOTE | ~2023-06-05 | CT_ITS ---
EXAMINATION: CT ABDOMEN AND PELVIS WITHOUT CONTRAST CLINICAL INFORMATION: Constipation. COMPARISON: Abdominal ultrasound 02/21/2023 CT abdomen/pelvis 11/16/2020 TECHNIQUE: Multidetector volumetric imaging was performed from the superior aspect of the liver through the pubic symphysis. Sagittal and coronal reformatted images were obtained on the technologist's workstation. This CT examination was performed using dose optimization techniques as appropriate, variously including the following: *Automated exposure control *Adjustment of mA and/or kV according to patient size (this includes techniques or standardized protocols for targeted exams where dose is matched to indication/reason for exam; i.e. extremities or head) *Use of iterative reconstruction technique DLP: 531 mGy-cm FINDINGS: LUNG BASES: No pericardial effusion. Coronary artery calcifications. LIVER, GALLBLADDER, AND BILIARY TREE: The noncontrast liver is normal in size and contour. No biliary ductal dilatation is present. The gallbladder is nonvisualized. PANCREAS: Unremarkable. SPLEEN: Unremarkable. ADRENAL GLANDS: Unremarkable. KIDNEYS AND URETERS: Atrophic kidneys. 1.5 cm upper pole right renal cyst. 1.9 cm midpole right renal cyst. 1.2 cm lower pole right renal cyst. 1.3 cm midpole right renal cyst. Nonobstructing right renal calculus. 1.6 cm midpole left renal cyst. 1.5 cm lower pole left renal cyst. No hydronephrosis. Nonspecific perinephric stranding. BLADDER: No bladder calculus. GASTROINTESTINAL TRACT: Small and large bowel loops are of normal caliber. No small bowel obstruction. Copious stool throughout the colon. ABDOMINAL WALL: No significant hernia is appreciated. LYMPH NODES: No bulky abdominal or pelvic lymphadenopathy. VASCULAR: No abdominal aortic aneurysm. Marked atherosclerotic vascular calcification of the abdominal aorta and major branch vessels. PELVIC VISCERA: Enlarged prostate gland. Right lower quadrant renal transplant. No peritransplant fluid collection. No transplant hydronephrosis. OSSEOUS STRUCTURES: No destructive bone lesions. CT/CT abdomen pelvis wo IV con IMPRESSION: No acute abnormality in the abdomen or pelvis. Atrophic [place] kidneys with bilateral cysts. Nonobstructing right renal calculus. No hydronephrosis. Constipation. Right lower quadrant transplant kidney without peritransplant fluid collection or transplant hydronephrosis.
--- NOTE | ~2023-06-05 | XR_ITS ---
EXAMINATION: Chest and KUB. CLINICAL INDICATIONS: SOB. Constipation. COMPARISON: Chest 11/16/2020 TECHNIQUE: Chest 2 views. Abdomen one view. FINDINGS: Chest: The lungs are well-expanded and clear. Heart size and pulmonary vascularity is normal. There is mild dextro scoliosis mid to lower dorsal spine. There is a left axillary stent. KUB: There is scattered stool seen in the colon without distention. No organomegaly. No radiopaque calculi. The surgical asia in the right lower quadrant from previous intervention. Moderate bridging osteophyte right L2-L3 and small lateral bridging osteophytes at L3-L4 and L4-L5 disc levels. XR/XR chest 2V IMPRESSION: 1. Unremarkable chest exam. 2. Mild constipation. No acute process seen in the abdomen. 3. Moderate bridging osteophytes right mid and mid to lower dorsal spine.
--- NOTE | ~2023-06-05 | XR_ITS ---
EXAMINATION: Chest and KUB. CLINICAL INDICATIONS: SOB. Constipation. COMPARISON: Chest 11/16/2020 TECHNIQUE: Chest 2 views. Abdomen one view. FINDINGS: Chest: The lungs are well-expanded and clear. Heart size and pulmonary vascularity is normal. There is mild dextro scoliosis mid to lower dorsal spine. There is a left axillary stent. KUB: There is scattered stool seen in the colon without distention. No organomegaly. No radiopaque calculi. The surgical asia in the right lower quadrant from previous intervention. Moderate bridging osteophyte right L2-L3 and small lateral bridging osteophytes at L3-L4 and L4-L5 disc levels. XR/XR KUB IMPRESSION: 1. Unremarkable chest exam. 2. Mild constipation. No acute process seen in the abdomen. 3. Moderate bridging osteophytes right mid and mid to lower dorsal spine.
[2023-06-05 11:17] VITALS: BP 146/102; PULSE 73; RESP 16; TEMP 36.2; O2SAT 96; BMI 25.7
--- NOTE | 2023-06-05 11:21 | ED_ITS ---
HPI - General Adult General Chief complaint: General Medical Stated complaint: rectal bleed Time Seen by Provider: 06/05/23 16:13 Source: patient and family (Spouse and daughter) Mode of arrival: ambulatory Limitations: no limitations History of Present Illness HPI narrative: 74-year-old male with multiple comorbidities with a recent hospitalization at [facility] for fluid retention as per family needed diuresis, came in today with generalized weakness, no bowel movement for 1 week, patient complaining of irritation in the rectum area with severe discomfort especially with bowel movements. Was hospitalized for a week for fluid retention and needed diuresis, patient while his hospitalization developed shingles that was treated with Valtrex, known to have hemorrhoids that have been painful lately. History of chronic renal insufficiency status post renal transplant 2020 not on dialysis currently. Related Data Home Medications Medication Instructions Recorded Confirmed folic acid 1 mg tablet 1 mg PO DAILY 02/08/22 06/05/23 carvedilol 25 mg tablet 25 mg PO BID 01/11/23 06/05/23 cinacalcet 30 mg tablet 30 mg PO DAILY 01/11/23 06/05/23 doxazosin 4 mg tablet 4 mg PO BEDTIME 01/11/23 06/05/23 blood sugar diagnostic (FreeStyle #10 ea 03/01/23 Lite Strips) blood-glucose meter (FreeStyle #1 ea 03/01/23 Lite Meter kit) lancets 28 gauge (FreeStyle #100 ea 03/01/23 Lancets) mycophenolate sodium 360 mg 360 mg PO BID 03/01/23 06/05/23 tablet,delayed release glipizide 5 mg tablet, extended 5 mg PO DAILY 05/08/23 06/05/23 release 24 hr empagliflozin 10 mg tablet 10 mg PO DAILY 06/05/23 06/05/23 (Jardiance) multivitamin with minerals 1 tab PO DAILY 06/05/23 06/05/23 nifedipine 30 mg tablet,extended 30 mg PO DAILY 06/05/23 06/05/23 release 24 hr rosuvastatin 5 mg tablet 5 mg PO BEDTIME 06/05/23 06/05/23 spironolactone 25 mg tablet 25 mg PO DAILY 06/05/23 06/05/23 torsemide 20 mg tablet 60 mg PO BID 06/05/23 06/05/23 Previous Rx's Medication Instructions Recorded donepezil 5 mg tablet (Aricept) 5 mg PO BEDTIME 90 days #90 tabs 10/24/22 allopurinol 100 mg tablet 100 mg PO DAILY #90 tabs 11/07/22 Allergies Allergy/AdvReac Type Severity Reaction Status Date / Time Penicillins [PENICILLINS] Allergy Unknown UNKNOWN Verified 06/05/23 11:17 rosuvastatin [From Crestor] Allergy Muscle Pain Verified 06/05/23 11:17 atorvastatin [From Lipitor] AdvReac Muscle Pain Verified 06/05/23 11:17 Review of Systems Review of Systems: All other systems are reviewed and are negative Constitutional: Reports as per HPI and Reports no additional constitutional complaints Eyes: Reports as per HPI and Reports no additional eye complaints Reports system reviewed and no additional complaints, except as documented Cardiovascular: Reports as per HPI and Reports no additional cardiovascular complaints Respiratory: Reports as per HPI and Reports no additional respiratory complaints Gastrointestinal: Reports as per HPI and Reports no additional gastrointestinal complaints Genitourinary: Reports no additional female genitourinary complaints Musculoskeletal: Reports no additional musculoskeletal complaints Skin/Breast: Reports system reviewed and no additional complaints, except as docu Psychiatric: Reports no additional psychiatric complaints Endocrine: Reports no additional endocrine complaints Hematologic/Lymphatic: Reports no additional hematologic/lymphatic complaints Allergic/Immunologic: Reports no additional allergic/immunologic complaints Reports system reviewed and no additional complaints, except as documented and Reports Abnormal speech present FOR[facility]LY [facility] Past Medical History Medical History Anemia BPH (benign prostatic hyperplasia) Cervical spondylosis Hepatitis C virus infection cured after antiviral drug therapy HTN (hypertension) Hypercholesterolemia Kidney failure Obesity (BMI 30-39.9) Pulmonary nodule, left Right patella fracture Screening for prostate cancer Surgical History Fistula of artery History of cholecystectomy History of colonoscopy History of esophagogastroduodenoscopy (EGD) History of renal transplant Family History Family History Father No problems noted. Mother No problems noted. Brother No problems noted. Brother No problems noted. Social History Social History Housing: House Alcohol intake: former Patient Tobacco Use Status: Former Tobacco user Tobacco use type: Cigarette Smoked in Last 30 Days: No e-Cigarette/Vaping Use: Never Used Use of substances other than those prescribed or required for medical reasons: No Advance Directives: Yes Advance Directives on File: Yes Advance Directives Date on File: 02/04/21 service: No Current occupational status: retired Cognitive needs: No Hearing needs: No Vision needs: Yes Physical Exam ED Vital Signs: Vital Signs - 24 hr 06/05/23 11:17 06/05/23 16:28 Temperature 97.1 F 98.1 F Pulse Rate 73 75 Respiratory Rate 16 16 Blood Pressure 146/102 H 124/64 Pulse Oximetry 96 99 Oxygen Delivery Method Room Air Room Air BMI result Body Mass Index 25.7 Vital signs have been reviewed as appeared to be correct. Blood pressure normal. Heart rate normal. Respiration rate normal. Temperature normal. Oxygen saturation normal. Appearance: Alert. Oriented X3. No acute distress. Head: Normal external exam. Normocephalic. Atraumatic. No [place] signs noted. No raccoon eyes noted Eyes: PERRLA. EOMI. Conjunctiva and sclera normal. Eyelids normal. ENT: TM's Normal. Pharynx normal. Uvula midline. Moist mucous membranes. No trismus noted. No drooling noted. No muffled voice noted. Neck: Normal inspection. Neck supple. FROM. No adenopathy. Thyroid Normal. No meningeal signs. No neck mass noted. CVS: Normal heart rate and rhythm. Heart sound normal. No murmurs noted. Pulses normal throughout. Respiratory: No respiratory distress. Painless inspiration. Breath sounds normal. No wheezes/rales/rhonchi noted. Chest nontender. No accessory muscle usage noted or decreased air movement noted. Abdomen: Soft and nontender. Bowel sounds normal in all 4 quadrants. No distention noted. No organomegaly noted. No visible injury noted. Rectal exam: Tenderness on exam making the exam very limited, nonbleeding nonthrombosed hemorrhoid on the 09:00 o'clock area, brown stool no obvious blood. Back: No CVA tenderness. Full range of motion noted. Skin: Skin warm and dry. Normal skin color. Normal skin turgor. No rashes/lesions/lacerations noted. Extremities: No lower extremity edema. Extremities exhibit normal range of motion. Extremities nontender. Neuro: Oriented X 3. Cranial nerve exam: II-XII are grossly intact No motor deficit. No sensory deficit. Reflexes normal. Course Course Course Narrative: This is an RME: Additional HPI, ROS, PE not included below will be deferred to primary provider. This is a 72-year-old male, hx of with renal transplant controlled diabetes mellitus, chronic kidney disease, chronic anemia, hypertension, hypercholesterolemia for constipation, hemorrhoids, and SOB x 1 week. [place] [facility] for fluid retention last week, has been constipation since his d/c day which was 1 week ago. Not on opioids, has hemorrhoids. He was seen again at [facility] [place] for hemorrhoids and constipation, and was told he was going to get prescribed a hemoroid cream, but taking too long and pt left before being seen. Limited appetite, abdomen is soft, nontender, nondistended. Hypoactive bowel sounds. No chest pain, vomiting, fevers or chills. VSS. Plan: Basic labs, KUB, CXR, will try to obtain records Reevaluation(s) Reevaluation #1: 73-year-old male recent [facility] hospitalization for week presented with hypercalcemia case discussed with Dr. Arellano who recommended a 1000 cc of normal saline at 75 cc/hour and give zoledronic acid that is not available at in the hospital but was replaced with pamidronate. Noncomplicated nonthrombosed external hemorrhoid at 09:00 o'clock, no active bleeding, hemodynamically stable with stable H&H. Time: 21:52 Medications Administered Generic Name Dose Route Start Last Admin Trade Name Freq PRN Reason Stop Dose Admin Sodium Chloride 1,000 mls @ 75 mls/hr 06/05/23 17:15 06/05/23 18:15 Ns IVCONT 75 mls/hr .[id number] KAN Administration Discontinued Medications Generic Name Dose Route Start Last Admin Trade Name Freq PRN Reason Stop Dose Admin Pamidronate Disodium 60 mg/ 510 mls @ 127.5 mls/hr 06/05/23 17:45 06/05/23 18:15 Sodium Chloride IV 06/05/23 21:44 127.5 mls/hr ONCE ONE Administration Medical Decision Making Differential Diagnosis Differential Diagnoses: The differential diagnosis associated with the presentation includes (Electrolyte abnormality, GI bleed, severe anemia, acute renal insufficiency.) Admission/Observation Consideration of admission/observation: Escalation of care including admission/observation considered Consult Healthcare Provider Management of the patient was discussed with: Hospitalist (Dr. Khan) Lab Data MDM Lab Attestation statement: I reviewed the patient's lab results. 06/05/23 11:41 06/05/23 11:41 Labs: Lab Results 06/05/23 06/05/23 06/05/23 Range/Units 11:41 11:41 11:41 WBC 10.5 (4.8-10.8) X10*3/uL RBC 4.76 D (4.60-5.80) X10*6/uL Hgb 13.5 L D (14.0-18.0) g/dl Hct 41.3 L D (42.0-52.0) % MCV 86.8 (80.0-98.0) fL MCH 28.4 (27.0-33.0) pg MCHC 32.7 (31.0-36.0) g/dl RDW 15.0 (11.0-16.0) % Plt Count 254 D (160-400) X10*3/uL MPV 9.3 L (9.4-12.4) fL Immature Gran % (Auto) 0.3 (0.0-0.4) % Neut % (Auto) 74.9 H (45-73) % Lymph % (Auto) 17.4 L (20-40) % [place] % (Auto) 6.1 (2-11) % Eos % (Auto) 0.9 (0-4) % Baso % (Auto) 0.4 (0-2) % Lymph # (Auto) 1.8 (1.2-4.9) X10*3/uL [place] # (Auto) 0.6 (0.1-1.2) X10*3/uL Eos # (Auto) 0.1 (0.0-0.4) X10*3/uL Baso # (Auto) 0.0 (0.0-0.2) X10*3/uL Abs Immat Gran (auto) 0.03 (0.00-0.03) X10*3/uL Absolute Neuts (auto) 7.9 (2.0-8.3) x10*3/uL Absolute Nucleated RBC 0.000 (0.0-0.012) X10*3/uL Nucleated RBC % (auto) 0.0 (0.0-0.2) /100WBC Sodium 133 L (135-145) mmol/L Potassium 3.7 (3.3-5.1) mmol/L Chloride 95 L (96-108) mmol/L Carbon Dioxide 22 (22-29) mmol/L Anion Gap 20 (12-20) BUN 108 H (9-16) mg/dL Creatinine 3.09 H (0.5-1.4) mg/dL Estim Creat Clear Calc 19.2 Estimated GFR 20 Random Glucose 350 H* (60-115) mg/dL Calcium 12.7 H* D (8.4-10.2) mg/dL Magnesium 2.5 (1.6-2.6) mg/dL Total Bilirubin 1.2 H (0.0-1.0) mg/dL Direct Bilirubin 0.5 (0.0-0.5) mg/dL AST 23 (5-37) U/L ALT 35 (0-40) U/L Alkaline Phosphatase 145 H (39-117) U/L Total Creatine Kinase (38-174) U/L B-Natriuretic Peptide 176 H (<100) pg/mL Total Protein 7.9 (6.5-8.0) g/dL Albumin 4.5 (3.5-5.0) g/dL Lipase 267 H (8-78) U/L Urine Color Urine Appearance Urine pH (5.0-9.0) Ur Specific [place] (1.005-1.025) Urine Protein (Neg-Trace) mg/dL Urine Glucose (UA) (Negative) mg/dL Urine Ketones (Negative) mg/dL Urine Blood (Negative) Urine Nitrite (Negative) Ur Leukocyte Esterase (Negative) Urine RBC (0-2) /HPF Urine WBC (0-5) /HPF Ur Squamous Epith Cells (0-2) /HPF Urine Bacteria (None Seen) Hyaline Casts (0-2) /LPF Stool Occult Blood (NEGATIVE) 06/05/23 06/05/23 06/05/23 Range/Units 16:45 16:45 16:59 WBC (4.8-10.8) X10*3/uL RBC (4.60-5.80) X10*6/uL Hgb (14.0-18.0) g/dl Hct (42.0-52.0) % MCV (80.0-98.0) fL MCH (27.0-33.0) pg MCHC (31.0-36.0) g/dl RDW (11.0-16.0) % Plt Count (160-400) X10*3/uL MPV (9.4-12.4) fL Immature Gran % (Auto) (0.0-0.4) % Neut % (Auto) (45-73) % Lymph % (Auto) (20-40) % [place] % (Auto) (2-11) % Eos % (Auto) (0-4) % Baso % (Auto) (0-2) % Lymph # (Auto) (1.2-4.9) X10*3/uL [place] # (Auto) (0.1-1.2) X10*3/uL Eos # (Auto) (0.0-0.4) X10*3/uL Baso # (Auto) (0.0-0.2) X10*3/uL Abs Immat Gran (auto) (0.00-0.03) X10*3/uL Absolute Neuts (auto) (2.0-8.3) x10*3/uL Absolute Nucleated RBC (0.0-0.012) X10*3/uL Nucleated RBC % (auto) (0.0-0.2) /100WBC Sodium 137 (135-145) mmol/L Potassium 3.7 (3.3-5.1) mmol/L Chloride 100 (96-108) mmol/L Carbon Dioxide 23 (22-29) mmol/L Anion Gap 18 (12-20) BUN 106 H (9-16) mg/dL Creatinine 2.78 H (0.5-1.4) mg/dL Estim Creat Clear Calc 21.3 Estimated GFR 23 Random Glucose 198 H (60-115) mg/dL Calcium 12.4 H (8.4-10.2) mg/dL Magnesium 2.5 (1.6-2.6) mg/dL Total Bilirubin (0.0-1.0) mg/dL Direct Bilirubin (0.0-0.5) mg/dL AST (5-37) U/L ALT (0-40) U/L Alkaline Phosphatase (39-117) U/L Total Creatine Kinase (38-174) U/L B-Natriuretic Peptide (<100) pg/mL Total Protein (6.5-8.0) g/dL Albumin (3.5-5.0) g/dL Lipase (8-78) U/L Urine Color Yellow Urine Appearance Clear Urine pH 5.5 (5.0-9.0) Ur Specific [place] 1.020 (1.005-1.025) Urine Protein Trace (Neg-Trace) mg/dL Urine Glucose (UA) >=1000 H (Negative) mg/dL Urine Ketones Negative (Negative) mg/dL Urine Blood Negative (Negative) Urine Nitrite Negative (Negative) Ur Leukocyte Esterase Negative (Negative) Urine RBC 0-2 (0-2) /HPF Urine WBC 0-5 (0-5) /HPF Ur Squamous Epith Cells 0-2 (0-2) /HPF Urine Bacteria None Seen (None Seen) Hyaline Casts 0-2 (0-2) /LPF Stool Occult Blood POSITIVE (NEGATIVE) 06/05/23 Range/Units 17:49 WBC (4.8-10.8) X10*3/uL RBC (4.60-5.80) X10*6/uL Hgb (14.0-18.0) g/dl Hct (42.0-52.0) % MCV (80.0-98.0) fL MCH (27.0-33.0) pg MCHC (31.0-36.0) g/dl RDW (11.0-16.0) % Plt Count (160-400) X10*3/uL MPV (9.4-12.4) fL Immature Gran % (Auto) (0.0-0.4) % Neut % (Auto) (45-73) % Lymph % (Auto) (20-40) % [place] % (Auto) (2-11) % Eos % (Auto) (0-4) % Baso % (Auto) (0-2) % Lymph # (Auto) (1.2-4.9) X10*3/uL [place] # (Auto) (0.1-1.2) X10*3/uL Eos # (Auto) (0.0-0.4) X10*3/uL Baso # (Auto) (0.0-0.2) X10*3/uL Abs Immat Gran (auto) (0.00-0.03) X10*3/uL Absolute Neuts (auto) (2.0-8.3) x10*3/uL Absolute Nucleated RBC (0.0-0.012) X10*3/uL Nucleated RBC % (auto) (0.0-0.2) /100WBC Sodium (135-145) mmol/L Potassium (3.3-5.1) mmol/L Chloride (96-108) mmol/L Carbon Dioxide (22-29) mmol/L Anion Gap (12-20) BUN (9-16) mg/dL Creatinine (0.5-1.4) mg/dL Estim Creat Clear Calc Estimated GFR Random Glucose (60-115) mg/dL Calcium (8.4-10.2) mg/dL Magnesium (1.6-2.6) mg/dL Total Bilirubin (0.0-1.0) mg/dL Direct Bilirubin (0.0-0.5) mg/dL AST (5-37) U/L ALT (0-40) U/L Alkaline Phosphatase (39-117) U/L Total Creatine Kinase 18 L (38-174) U/L B-Natriuretic Peptide (<100) pg/mL Total Protein (6.5-8.0) g/dL Albumin (3.5-5.0) g/dL Lipase (8-78) U/L Urine Color Urine Appearance Urine pH (5.0-9.0) Ur Specific [place] (1.005-1.025) Urine Protein (Neg-Trace) mg/dL Urine Glucose (UA) (Negative) mg/dL Urine Ketones (Negative) mg/dL Urine Blood (Negative) Urine Nitrite (Negative) Ur Leukocyte Esterase (Negative) Urine RBC (0-2) /HPF Urine WBC (0-5) /HPF Ur Squamous Epith Cells (0-2) /HPF Urine Bacteria (None Seen) Hyaline Casts (0-2) /LPF Stool Occult Blood (NEGATIVE) Independent Interpretation I performed an independent interpretation of an: Plain X-Ray (Chest/KUB: No acute intrathoracic pathology.) and CT Scan (No acute intra-abdominal pathology.) Radiology Impression Discussion of test interpretation with radiology: I have reviewed the radiologist's reading. Discharge Plan Discharge Clinical Impression: Rectal bleed, Hypercalcemia Patient Disposition: Admitted As Inpatient
--- NOTE | 2023-06-05 11:25 | ECG_ITS ---
Test Reason : rectal bleed Blood Pressure : / mmHG Vent. Rate : 073 BPM Atrial Rate : 073 BPM P-R Int : 170 ms QRS Dur : 100 ms QT Int : 358 ms P-R-T Axes : 085 -39 -02 degrees QTc Int : 394 ms Normal sinus rhythm Left axis deviation Pulmonary disease pattern Minimal voltage criteria for LVH, may be normal variant ( R in aVL ) Nonspecific T wave abnormality Abnormal ECG When compared with ECG of 19-NOV-2020 22:07, Questionable change in QRS duration Referred By: Heather Kate Electronically Signed By:Dann Wiggins
[2023-06-05 11:46] LABS: MANUAL DIFF FLAG NO
[2023-06-05 11:54] LABS: Basophils Percent Auto 0.4 % (0-2); Eosinophils Absolute Auto 0.1 X10*3/uL (0.0-0.4); Eosinophils Percent Auto 0.9 % (0-4); Hematocrit 41.3 % (42.0-52.0); Hemoglobin 13.5 g/dl (14.0-18.0); Imm Gran Abs Auto 0.03 X10*3/uL (0.00-0.03); Imm Gran Pct Auto 0.3 % (0.0-0.4); Lymphocytes Absolute Auto 1.8 X10*3/uL (1.2-4.9); Lymphocytes Percent Auto 17.4 % (20-40); Mean Corpuscular HGB Conc 32.7 g/dl (31.0-36.0); Mean Corpuscular Hemoglobin 28.4 pg (27.0-33.0); Mean Corpuscular Volume 86.8 fL (80.0-98.0); Mean Platelet Volume 9.3 fL (9.4-12.4); Monocytes Absolute Auto 0.6 X10*3/uL (0.1-1.2); Monocytes Percent Auto 6.1 % (2-11); Neutrophils Absolute Auto 7.9 x10*3/uL (2.0-8.3); Neutrophils Percent Auto 74.9 % (45-73); Platelet Count 254 X10*3/uL (160-400); Red Blood Count 4.76 X10*6/uL (4.60-5.80); White Blood Count 10.5 X10*3/uL (4.8-10.8)
[2023-06-05 12:20] LABS: B Type Natriuretic Peptide 176 pg/mL (<100)
[2023-06-05 12:26] LABS: Alanine Aminotransferase 35 U/L (0-40); Albumin Level 4.5 g/dL (3.5-5.0); Alkaline Phosphatase 145 U/L (39-117); Anion Gap 20 (12-20); Aspartate Amino Transferase 23 U/L (5-37); Bilirubin Direct 0.5 mg/dL (0.0-0.5); Bilirubin Total 1.2 mg/dL (0.0-1.0); Blood Urea Nitrogen 108 mg/dL (9-16); Calcium 12.7 mg/dL (8.4-10.2); Carbon Dioxide 22 mmol/L (22-29); Chloride 95 mmol/L (96-108); Creatinine Clr Calc Pharmacy 19.2; Estimated Glomerular Filt Rate 20; Glucose Random 350 mg/dL (60-115); Lipase 267 U/L (8-78); Magnesium 2.5 mg/dL (1.6-2.6); Potassium 3.7 mmol/L (3.3-5.1); Sodium 133 mmol/L (135-145); Total Protein 7.9 g/dL (6.5-8.0)
[2023-06-05 16:28] VITALS: BP 124/64; PULSE 75; RESP 16; TEMP 36.7; O2SAT 99
--- NOTE | 2023-06-05 16:42 | ED_ITS ---
HPI - General Adult General Chief complaint: General Medical Stated complaint: rectal bleed Time Seen by Provider: 06/05/23 16:13 Source: patient and family Related Data Home Medications Medication Instructions Recorded Confirmed docusate sodium 100 mg capsule 200 mg PO DAILY 02/03/21 02/13/23 (Colace) folic acid 1 mg tablet 1 mg PO DAILY 02/08/22 02/13/23 magnesium oxide 400 mg (241.3 mg 400 mg PO DAILY 02/08/22 02/13/23 magnesium) tablet sennosides 8.6 mg tablet (Natural 8.6 mg PO DAILY 02/08/22 02/13/23 Senna Laxative) carvedilol 25 mg tablet 25 mg PO BID 01/11/23 02/13/23 cinacalcet 30 mg tablet 30 mg PO DAILY 01/11/23 02/13/23 doxazosin 4 mg tablet 4 mg PO BEDTIME 01/11/23 02/13/23 furosemide 20 mg tablet 20 mg PO BID 01/11/23 02/13/23 blood sugar diagnostic (FreeStyle #10 ea 03/01/23 Lite Strips) blood-glucose meter (FreeStyle #1 ea 03/01/23 Lite Meter kit) lancets 28 gauge (FreeStyle #100 ea 03/01/23 Lancets) mycophenolate sodium 360 mg 360 mg PO BID 03/01/23 tablet,delayed release nifedipine 60 mg tablet,extended 0 mg PO 03/01/23 release glipizide 5 mg tablet, extended 5 mg PO DAILY 05/08/23 release 24 hr Previous Rx's Medication Instructions Recorded donepezil 5 mg tablet (Aricept) 5 mg PO BEDTIME 90 days #90 tabs 10/24/22 allopurinol 100 mg tablet 100 mg PO DAILY #90 tabs 11/07/22 ciprofloxacin HCl 500 mg tablet 500 mg PO BID 10 days #20 tabs 04/21/23 (Cipro) Allergies Allergy/AdvReac Type Severity Reaction Status Date / Time Penicillins [PENICILLINS] Allergy Unknown UNKNOWN Verified 06/05/23 11:17 rosuvastatin [From Crestor] Allergy Muscle Pain Verified 06/05/23 11:17 atorvastatin [From Lipitor] AdvReac Muscle Pain Verified 06/05/23 11:17 [facility] Past Medical History Medical History Anemia BPH (benign prostatic hyperplasia) Cervical spondylosis Hepatitis C virus infection cured after antiviral drug therapy HTN (hypertension) Hypercholesterolemia Kidney failure Obesity (BMI 30-39.9) Pulmonary nodule, left Right patella fracture Screening for prostate cancer Surgical History Fistula of artery History of cholecystectomy History of colonoscopy History of esophagogastroduodenoscopy (EGD) History of renal transplant Family History Family History Father No problems noted. Mother No problems noted. Brother No problems noted. Brother No problems noted. Social History Social History Housing: House Alcohol intake: former Patient Tobacco Use Status: Former Tobacco user Tobacco use type: Cigarette Smoked in Last 30 Days: No e-Cigarette/Vaping Use: Never Used Use of substances other than those prescribed or required for medical reasons: No Advance Directives: Yes Advance Directives on File: Yes Advance Directives Date on File: 02/04/21 service: No Current occupational status: retired Cognitive needs: No Hearing needs: No Vision needs: Yes Physical Exam ED Vital Signs: Vital Signs - 24 hr 06/05/23 11:17 06/05/23 16:28 Temperature 97.1 F 98.1 F Pulse Rate 73 75 Respiratory Rate 16 16 Blood Pressure 146/102 H 124/64 Pulse Oximetry 96 99 Oxygen Delivery Method Room Air Room Air BMI result Body Mass Index 25.7 Course Course Course Narrative: A 73-year-old male with history of chronic renal insufficiency, s/p renal transplant no hemodialysis currently, presented with rectal and found to have hypercalcemia. 1. Occult blood positive in stool was stable H&H and hemodynamically stable, exam is revealing rectal irritation with small nonbleeding noncomplicated . 2. Hypercalcemia the case discussed with Dr. Arellano recommended to start normal saline at 75 cc/hour for 1 L and give zoledronic acid 4 mg which is not available in our facility but will be replaced with pamidronate. Admit. Medical Decision Making Differential Diagnosis Differential Diagnoses: The differential diagnosis associated with the presentation includes (GI bleed, severe anemia, electrolyte abnormality, dehydra tion, complicated hemorrhoids.) Admission/Observation Consideration of admission/observation: Escalation of care including admission/observation considered Consult Healthcare Provider Management of the patient was discussed with: Hospitalist (Dr. Khan) Lab Data MDM Lab Attestation statement: I reviewed the patient's lab results. 06/05/23 11:41 06/05/23 11:41 Labs: Lab Results 06/05/23 06/05/23 06/05/23 Range/Units 11:41 11:41 11:41 WBC 10.5 (4.8-10.8) X10*3/uL RBC 4.76 D (4.60-5.80) X10*6/uL Hgb 13.5 L D (14.0-18.0) g/dl Hct 41.3 L D (42.0-52.0) % MCV 86.8 (80.0-98.0) fL MCH 28.4 (27.0-33.0) pg MCHC 32.7 (31.0-36.0) g/dl RDW 15.0 (11.0-16.0) % Plt Count 254 D (160-400) X10*3/uL MPV 9.3 L (9.4-12.4) fL Immature Gran % (Auto) 0.3 (0.0-0.4) % Neut % (Auto) 74.9 H (45-73) % Lymph % (Auto) 17.4 L (20-40) % [place] % (Auto) 6.1 (2-11) % Eos % (Auto) 0.9 (0-4) % Baso % (Auto) 0.4 (0-2) % Lymph # (Auto) 1.8 (1.2-4.9) X10*3/uL [place] # (Auto) 0.6 (0.1-1.2) X10*3/uL Eos # (Auto) 0.1 (0.0-0.4) X10*3/uL Baso # (Auto) 0.0 (0.0-0.2) X10*3/uL Abs Immat Gran (auto) 0.03 (0.00-0.03) X10*3/uL Absolute Neuts (auto) 7.9 (2.0-8.3) x10*3/uL Absolute Nucleated RBC 0.000 (0.0-0.012) X10*3/uL Nucleated RBC % (auto) 0.0 (0.0-0.2) /100WBC Sodium 133 L (135-145) mmol/L Potassium 3.7 (3.3-5.1) mmol/L Chloride 95 L (96-108) mmol/L Carbon Dioxide 22 (22-29) mmol/L Anion Gap 20 (12-20) BUN 108 H (9-16) mg/dL Creatinine 3.09 H (0.5-1.4) mg/dL Estim Creat Clear Calc 19.2 Estimated GFR 20 Random Glucose 350 H* (60-115) mg/dL Calcium 12.7 H* D (8.4-10.2) mg/dL Magnesium 2.5 (1.6-2.6) mg/dL Total Bilirubin 1.2 H (0.0-1.0) mg/dL Direct Bilirubin 0.5 (0.0-0.5) mg/dL AST 23 (5-37) U/L ALT 35 (0-40) U/L Alkaline Phosphatase 145 H (39-117) U/L B-Natriuretic Peptide 176 H (<100) pg/mL Total Protein 7.9 (6.5-8.0) g/dL Albumin 4.5 (3.5-5.0) g/dL Lipase 267 H (8-78) U/L Urine Color Urine Appearance Urine pH (5.0-9.0) Ur Specific [place] (1.005-1.025) Urine Protein (Neg-Trace) mg/dL Urine Glucose (UA) (Negative) mg/dL Urine Ketones (Negative) mg/dL Urine Blood (Negative) Urine Nitrite (Negative) Ur Leukocyte Esterase (Negative) Stool Occult Blood (NEGATIVE) 06/05/23 06/05/23 06/05/23 Range/Units 16:45 16:45 16:59 WBC (4.8-10.8) X10*3/uL RBC (4.60-5.80) X10*6/uL Hgb (14.0-18.0) g/dl Hct (42.0-52.0) % MCV (80.0-98.0) fL MCH (27.0-33.0) pg MCHC (31.0-36.0) g/dl RDW (11.0-16.0) % Plt Count (160-400) X10*3/uL MPV (9.4-12.4) fL Immature Gran % (Auto) (0.0-0.4) % Neut % (Auto) (45-73) % Lymph % (Auto) (20-40) % [place] % (Auto) (2-11) % Eos % (Auto) (0-4) % Baso % (Auto) (0-2) % Lymph # (Auto) (1.2-4.9) X10*3/uL [place] # (Auto) (0.1-1.2) X10*3/uL Eos # (Auto) (0.0-0.4) X10*3/uL Baso # (Auto) (0.0-0.2) X10*3/uL Abs Immat Gran (auto) (0.00-0.03) X10*3/uL Absolute Neuts (auto) (2.0-8.3) x10*3/uL Absolute Nucleated RBC (0.0-0.012) X10*3/uL Nucleated RBC % (auto) (0.0-0.2) /100WBC Sodium 137 (135-145) mmol/L Potassium 3.7 (3.3-5.1) mmol/L Chloride 100 (96-108) mmol/L Carbon Dioxide 23 (22-29) mmol/L Anion Gap 18 (12-20) BUN 106 H (9-16) mg/dL Creatinine 2.78 H (0.5-1.4) mg/dL Estim Creat Clear Calc 21.3 Estimated GFR 23 Random Glucose 198 H (60-115) mg/dL Calcium 12.4 H (8.4-10.2) mg/dL Magnesium 2.5 (1.6-2.6) mg/dL Total Bilirubin (0.0-1.0) mg/dL Direct Bilirubin (0.0-0.5) mg/dL AST (5-37) U/L ALT (0-40) U/L Alkaline Phosphatase (39-117) U/L B-Natriuretic Peptide (<100) pg/mL Total Protein (6.5-8.0) g/dL Albumin (3.5-5.0) g/dL Lipase (8-78) U/L Urine Color Yellow Urine Appearance Clear Urine pH 5.5 (5.0-9.0) Ur Specific [place] 1.020 (1.005-1.025) Urine Protein Trace (Neg-Trace) mg/dL Urine Glucose (UA) >=1000 H (Negative) mg/dL Urine Ketones Negative (Negative) mg/dL Urine Blood Negative (Negative) Urine Nitrite Negative (Negative) Ur Leukocyte Esterase Negative (Negative) Stool Occult Blood POSITIVE (NEGATIVE) Independent Interpretation I performed an independent interpretation of an: EKG (For normal sinus rhythm at 73 beats per minute, left axis deviation, normal intervals, LVH, no change from previous EKG.), Plain X-Ray (Chest/KUB: No acute intrathoracic pathology, mild constipation.) and CT Scan (Abdomen and pelvis: no acute abnormality in the abdomen or pelvis.) Radiology Impression Discussion of test interpretation with radiology: I have reviewed the radiologist's reading. Discharge Plan Discharge Clinical Impression: Rectal bleed, Hypercalcemia Patient Disposition: Admitted As Inpatient
[2023-06-05 16:52] LABS: Appearance Urine Clear; Color Urine Yellow; Glucose Urine UA >=1000 mg/dL (Negative); Leukocyte Esterase Urine Negative (Negative); Nitrite Urine Negative (Negative); PH 5.5 (5.0-9.0); UMIC TRIGGER UACC YES; Urine Blood Negative (Negative); Urine Ketones Negative (Negative); Urine Protein Trace mg/dL (Neg-Trace)
[2023-06-05 17:01] LABS: OBS Int Ctl Valid YES; OBS1 POSITIVE (NEGATIVE)
--- NOTE | 2023-06-05 17:16 | PC.NURSE ---
alert and oriented, RR even unlabored. fistula in left arm. IV placed in RAC. VSS, family at bedside call arteaga in reach. wctm
[2023-06-05 17:37] LABS: Anion Gap 18 (12-20); Blood Urea Nitrogen 106 mg/dL (9-16); Calcium 12.4 mg/dL (8.4-10.2); Carbon Dioxide 23 mmol/L (22-29); Chloride 100 mmol/L (96-108); Creatinine Clr Calc Pharmacy 21.3; Estimated Glomerular Filt Rate 23; Glucose Random 198 mg/dL (60-115); Magnesium 2.5 mg/dL (1.6-2.6); Potassium 3.7 mmol/L (3.3-5.1); Sodium 137 mmol/L (135-145)
[2023-06-05] MEDS: 0.9 % Sodium Chloride 1,000 ML 75 ML IVCONT (18:15)
[2023-06-05 18:44] LABS: Bacteria Urine None Seen (None Seen); Hyaline Casts Urine 0-2 /LPF (0-2); RBC Urine 0-2 /HPF (0-2); Squamous Epithelial Cell Urine 0-2 /HPF (0-2); WBC Urine 0-5 /HPF (0-5)
--- NOTE | 2023-06-05 20:33 | P.HPHOSP_ITS ---
History of Present Illness Date of Service: 06/05/23 Attending physician on admission: Margaux Almonte Chief Complaint: perianal irritation, brbpr 73-year-old male with history of CKD stage 4 who is s/p renal transplant in 09/2021 due to ESRD secondary to hypertension and type 2 diabetes, recently diagnosed heart failure with reduced ejection fraction, hypertension, dyslipidemia, obstructive sleep apnea, BPH, history of hepatitis-C treated presented to the ED earlier today with and daughter for evaluation of perianal irritation and bright red blood per rectum. Patient was recently admitted to [facility] from 05/19-05/30 for management of acute on chronic renal failure with anasarca and during admission was also found to have HFrEF with EF 45-50% as well as hypercalcemia. During admission, was also diagnosed with herpes zoster of the right buttock and was treated with IV acyclovir and discharged with only 2 days of valacyclovir which he reports completing as prescribed. This morning developed perianal irriation/itch and was concerned about recurrence of zoster. He denies any lesions currently or burning pain. On exam per ED provider, saccular lesions noted but nonbleeding, nonthrombosed external hemorrhoid at 09:00 o'clock noted with trace positive occult blood in stool. Endorses chronic constipation and straining. He does also ensorse anorexia ongoing since COVID-19 diagnosis in 03/12 and chronic fatigue. No n/v, myalgia, muscle twitching, cough, sob, lightheadedness, confusion, or chest pain. On arrival, vital signs stable. No leukocytosis. There is a mild normocytic anemia with H/H 13.5/41.3%. Creatinine 2.76, BUN 106. Electrolyte levels normal. Initial calcium 12.7, repeat 12.4. Albumin 4.5. Corrected calcium 11.6. Alkaline phosphatase 145. BNP 176. Total CK 18. Lipase 267. Urinalysis unremarkable except for significant glucose. Labs reviewed from [facility] with significantly elevated PTH of 368. Vitamin-D level 45.0. CXR without any acute cardiopulmonary abnormality. KUB shows mild constipation but no acute process. CT abdomen/pelvis negative for any acute intra-abdominal abnormality which shows atrophic [place] kidneys with bilateral psis and nonobstructing calculi as well as constipation previously noted. In the right lower quadrant is transplant kidney without peritransplant fluid collection or hydronephrosis. Eighty did discuss case with Nephrology recommending admission for gentle IV fluids and zoledronic acid which is not available on formulary and pamidronate he has ordered in its place. Review of Systems Review of Systems: General: No fevers, malaise, unintentional weight loss HEENT: No blurred vision, diplopia. No sore throat, nasal congestion, rhinorrhea, sinus pain, ear pain Cardiovascular: No chest pain, palpitations, or leg edema Respiratory: No shortness of breath, wheezing, cough GI: +anorexia, +constipation, +BRBPR. No abdominal pain, nausea, vomiting, diarrhea, melena : No dysuria, hematuria, increased urinary frequency, decreased urinary output MSK: No myalgia, back pain Neuro: No headaches, weakness, paresthesias, confusion Skin: No rashes or lesions [facility] Medical History Anemia BPH (benign prostatic hyperplasia) Cervical spondylosis Hepatitis C virus infection cured after antiviral drug therapy HTN (hypertension) Hypercholesterolemia Kidney failure Obesity (BMI 30-39.9) Pulmonary nodule, left Right patella fracture Screening for prostate cancer Family History Father No problems noted. Mother No problems noted. Brother No problems noted. Brother No problems noted. Surgical History Fistula of artery History of cholecystectomy History of colonoscopy History of esophagogastroduodenoscopy (EGD) History of renal transplant Social History Housing: House Alcohol intake: former Patient Tobacco Use Status: Former Tobacco user Tobacco use type: Cigarette Smoked in Last 30 Days: No e-Cigarette/Vaping Use: Never Used Use of substances other than those prescribed or required for medical reasons: No Advance Directives: Yes Advance Directives on File: Yes Advance Directives Date on File: 02/04/21 service: No Current occupational status: retired Cognitive needs: No Hearing needs: No Vision needs: Yes Meds Allergies Allergy/AdvReac Type Severity Reaction Status Date / Time Penicillins [PENICILLINS] Allergy Unknown UNKNOWN Verified 06/05/23 11:17 rosuvastatin [From Crestor] Allergy Muscle Pain Verified 06/05/23 11:17 atorvastatin [From Lipitor] AdvReac Muscle Pain Verified 06/05/23 11:17 Active Medications: Current Medications Acetaminophen (Acetaminophen 325 Mg Tablet) 650 mg PO Q6H PRN PRN Reason: Pain, Mild (Pain Scale 1-3) Docusate Sodium (Docusate Sodium 100 Mg Capsule) 100 mg PO BID KAN Hydrocortisone (Hydrocortisone 2.5 % Rectal Cr 30 Gm Tube) 1 appl SD BID KAN Sodium Chloride (Ns) 1,000 mls @ 75 mls/hr IVCONT .[id number] KAN Last Admin: 06/05/23 18:15 Dose: 75 mls/hr Pamidronate Disodium 60 mg/ (Sodium Chloride) 510 mls @ 127.5 mls/hr IV ONCE ONE Stop: 06/05/23 21:44 Last Admin: 06/05/23 18:15 Dose: 127.5 mls/hr Ondansetron HCl (Ondansetron Hcl 4 Mg/2 Ml Vial) 4 mg IVPUSH Q8H PRN PRN Reason: Nausea and Vomiting Pharmacy Consult (Consult Rx Perform Med Rec) 1 each MISCELLANE ONCE PRN PRN Reason: Consult order Home Medications Medication Instructions Recorded Confirmed Last Taken Type folic acid 1 mg tablet 1 mg PO DAILY 02/08/22 06/05/23 Unknown History carvedilol 25 mg tablet 25 mg PO BID 01/11/23 06/05/23 02/16/23 History cinacalcet 30 mg tablet 30 mg PO DAILY 01/11/23 06/05/23 02/16/23 History doxazosin 4 mg tablet 4 mg PO BEDTIME 01/11/23 06/05/23 Unknown History blood sugar diagnostic (FreeStyle #10 ea 03/01/23 Unknown History Lite Strips) blood-glucose meter (FreeStyle #1 ea 03/01/23 Unknown History Lite Meter kit) lancets 28 gauge (FreeStyle #100 ea 03/01/23 Unknown History Lancets) mycophenolate sodium 360 mg 360 mg PO BID 03/01/23 06/05/23 Unknown History tablet,delayed release glipizide 5 mg tablet, extended 5 mg PO DAILY 05/08/23 06/05/23 Unknown History release 24 hr empagliflozin 10 mg tablet 10 mg PO DAILY 06/05/23 06/05/23 Unknown History (Jardiance) multivitamin with minerals 1 tab PO DAILY 06/05/23 06/05/23 Unknown History nifedipine 30 mg tablet,extended 30 mg PO DAILY 06/05/23 06/05/23 Unknown H istory release 24 hr rosuvastatin 5 mg tablet 5 mg PO BEDTIME 06/05/23 06/05/23 Unknown History spironolactone 25 mg tablet 25 mg PO DAILY 06/05/23 06/05/23 Unknown History torsemide 20 mg tablet 60 mg PO BID 06/05/23 06/05/23 Unknown History Physical Exam Vital Signs and Narrative: Vital Signs: Last Vital Signs Temp 98.1 F 06/05/23 16:28 Pulse 75 06/05/23 16:28 Resp 16 06/05/23 16:28 BP 124/64 06/05/23 16:28 Pulse Ox 99 06/05/23 16:28 O2 Del Method Room Air 06/05/23 16:28 BMI result Body Mass Index 25.7 Constitutional - Awake and Alert, No apparent distress Eyes - PERRLA, EOMI Cardiovascular - S1S2, RRR, No edema Respiratory - Normal lung expansion, Normal respiratory effort, No respiratory distress, CTA bilaterally Gastrointestinal - NT / ND; +BS; No rebound or guarding - No CVA tenderness Rectal- deferred- performed by ED Extremities - no calf tenderness bilaterally, no swelling Skin - Warm/Dry Neurological - Alert & oriented x3, CN II-XII in tact, negative chvostek sign Results Labs 06/05/23 11:41 06/05/23 16:59 Labs: Laboratory Results - last 24 hr 06/05/23 06/05/23 06/05/23 11:41 11:41 11:41 MCV 86.8 MCH 28.4 MCHC 32.7 RDW 15.0 Plt Count 254 D MPV 9.3 L Immature Gran % (Auto) 0.3 Neut % (Auto) 74.9 H Lymph % (Auto) 17.4 L [place] % (Auto) 6.1 Eos % (Auto) 0.9 Baso % (Auto) 0.4 Lymph # (Auto) 1.8 [place] # (Auto) 0.6 Eos # (Auto) 0.1 Baso # (Auto) 0.0 Abs Immat Gran (auto) 0.03 Absolute Neuts (auto) 7.9 Absolute Nucleated RBC 0.000 Nucleated RBC % (auto) 0.0 Anion Gap 20 Estim Creat Clear Calc 19.2 Estimated GFR 20 Random Glucose 350 H* Calcium 12.7 H* D Magnesium 2.5 Total Bilirubin 1.2 H Direct Bilirubin 0.5 AST 23 ALT 35 Alkaline Phosphatase 145 H Total Creatine Kinase B-Natriuretic Peptide 176 H Total Protein 7.9 Albumin 4.5 Lipase 267 H Urine Color Urine Appearance Urine pH Ur Specific [place] Urine Protein Urine Glucose (UA) Urine Ketones Urine Blood Urine Nitrite Ur Leukocyte Esterase Urine RBC Urine WBC Ur Squamous Epith Cells Urine Bacteria Hyaline Casts Stool Occult Blood 06/05/23 06/05/23 06/05/23 16:45 16:45 16:59 MCV MCH MCHC RDW Plt Count MPV Immature Gran % (Auto) Neut % (Auto) Lymph % (Auto) [place] % (Auto) Eos % (Auto) Baso % (Auto) Lymph # (Auto) [place] # (Auto) Eos # (Auto) Baso # (Auto) Abs Immat Gran (auto) Absolute Neuts (auto) Absolute Nucleated RBC Nucleated RBC % (auto) Anion Gap 18 Estim Creat Clear Calc 21.3 Estimated GFR 23 Random Glucose 198 H Calcium 12.4 H Magnesium 2.5 Total Bilirubin Direct Bilirubin AST ALT Alkaline Phosphatase Total Creatine Kinase B-Natriuretic Peptide Total Protein Albumin Lipase Urine Color Yellow Urine Appearance Clear Urine pH 5.5 Ur Specific [place] 1.020 Urine Protein Trace Urine Glucose (UA) >=1000 H Urine Ketones Negative Urine Blood Negative Urine Nitrite Negative Ur Leukocyte Esterase Negative Urine RBC 0-2 Urine WBC 0-5 Ur Squamous Epith Cells 0-2 Urine Bacteria None Seen Hyaline Casts 0-2 Stool Occult Blood POSITIVE 06/05/23 17:49 MCV MCH MCHC RDW Plt Count MPV Immature Gran % (Auto) Neut % (Auto) Lymph % (Auto) [place] % (Auto) Eos % (Auto) Baso % (Auto) Lymph # (Auto) [place] # (Auto) Eos # (Auto) Baso # (Auto) Abs Immat Gran (auto) Absolute Neuts (auto) Absolute Nucleated RBC Nucleated RBC % (auto) Anion Gap Estim Creat Clear Calc Estimated GFR Random Glucose Calcium Magnesium Total Bilirubin Direct Bilirubin AST ALT Alkaline Phosphatase Total Creatine Kinase 18 L B-Natriuretic Peptide Total Protein Albumin Lipase Urine Color Urine Appearance Urine pH Ur Specific [place] Urine Protein Urine Glucose (UA) Urine Ketones Urine Blood Urine Nitrite Ur Leukocyte Esterase Urine RBC Urine WBC Ur Squamous Epith Cells Urine Bacteria Hyaline Casts Stool Occult Blood Imaging Radiologist's Impressions: Impressions Chest X-Ray 06/05/23 12:14 IMPRESSION: 1. Unremarkable chest exam. 2. Mild constipation. No acute process seen in the abdomen. 3. Moderate bridging osteophytes right mid and mid to lower dorsal spine. KUB X-Ray 06/05/23 12:14 IMPRESSION: 1. Unremarkable chest exam. 2. Mild constipation. No acute process seen in the abdomen. 3. Moderate bridging osteophytes right mid and mid to lower dorsal spine. Abdomen/Pelvis CT 06/05/23 15:02 IMPRESSION: No acute abnormality in the abdomen or pelvis. Atrophic [place] kidneys with bilateral cysts. Nonobstructing right renal calculus. No hydronephrosis. Constipation. Right lower quadrant transplant kidney without peritransplant fluid collection or transplant hydronephrosis. Assessment and Plan (1) Rectal bleed: Status: Acute (2) Hypercalcemia: Status: Acute Plan 73-year-old male with history of hypothyroidism, hypertension, BPH with LUTS, coronary artery disease s/p cardiac catheterization in 2019, COPD, GERD, diet- controlled type 2 diabetes, hypercholesterolemia, vitamin-D deficiency to be observed for hypercalcemia. 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 Ionized calcium level pending. Corrected calcium 11.6 -nephrology consult -per Nephrology, gentle IV fluid hydration -pamidronate per Nephrology -Continue cinacelat -monitor on telemetry # CKD stage 4 s/p renal transplant -[place] kidneys retained -Creat 2.78, consistent with baseline. BUN 106 -ED discussed case with Nephrology as above and will continue follow -Avoid nephrotoxins -Follow BMP -continue mycophenolate #External hemorrhoid -nonthrombosed, nonbleeding -per ED provider, trace positive stool occult blood -H/H above baseline -outpatient follow-up #Recent herpes zoster infection right buttock -diagnosed during inpt stay at [facility] -Treated with 2 days IV acyclovir but only discharged on 2 days valacyclovir -given immunocompromised state, we will restart renally adjusted valacyclovir 1 g q.d. x2 weeks (initiated 06/05) # hypertension -bp reasonably controlled -continue home meds # anemia of chronic disease -H/H above baseline and above transfusion threshold #BPH with LUTS -continue doxazosin #HFrEF -no acute exacerbation -recently diagnosed at [facility] with discharge on 05/30 -continue spironolactone, torsemide, Jardiance # controlled type 2 diabetes -POC glucose -diabetic diet -Humalog on sliding scale, hold glipizide # unspecified dementia -mentation baseline per family -continue donepezil DVT prophylaxis- SCPs Do not intubate Time Spent With Patient Time: Total time managing care of this patient today ____ minutes. Quality Stroke Does the patient have a stroke diagnosis?: No VTE Prior VTE?: No VTE Risk Level:: Medical - moderate - high VTE Device Contraindication: N/A - Device Ordered VTE Drug Contraindication: Treatment Not Indicated
--- NOTE | 2023-06-05 20:49 | PHA.MEDREC ---
Pharmacy Consult ? Medication Reconciliation Pharmacy has completed the medication reconciliation.
[2023-06-05 21:57] LABS: Glucose, Whole Blood 154 mg/dL (60-115)
[2023-06-05] MEDS: Donepezil HCl 5 MG TABLET PO (21:59)
[2023-06-05] MEDS: carvediloL 25 MG TABLET PO (21:59)
[2023-06-05] MEDS: Docusate Sodium 100 MG CAPSULE PO (21:59)
[2023-06-05 22:00] VITALS: BP 138/58; PULSE 83; RESP 18; O2SAT 98
[2023-06-05] MEDS: Doxazosin Mesylate 2 MG TABLET 4 MG PO (22:00)
[2023-06-05] MEDS: Torsemide 20 MG TABLET 60 MG PO (22:05)
--- NOTE | 2023-06-05 22:21 | PC.NURSE ---
Upon medication administration family (daughter and ) at bedside reports Pt only takes 30 mg of Torsemide at night. Family also declined insulin, stated he does not take insulin at all .
[2023-06-05] MEDS: Hydrocortisone 2.5 % Rectal Cr 30 GM TUBE 1 APPL PR (23:00)
--- NOTE | 2023-06-05 23:30 | PC.NURSE ---
pt A&Ox4, reports 8/10 hemorrhoid pain. IV fluids running as ordered. Pt incontinent of stool, incontinent care provided, barrier cream applied and hemorrhoid cream applied as ordered. Pt self reposition.
[2023-06-06] VITALS (8 sets, daily range): BP systolic 114–152; BP diastolic 50–64; PULSE 70–77; RESP 16–20; TEMP 36.1–36.8; O2SAT 96–99
[2023-06-06] MEDS: 0.9 % Sodium Chloride 1,000 ML 75 ML IVCONT ×2 (06:30→20:06)
[2023-06-06] MEDS: Acetaminophen 325 MG TABLET 650 MG PO ×3 (06:39→18:18)
[2023-06-06 07:20] LABS: Glucose, Whole Blood 171 mg/dL (60-115)
[2023-06-06 07:35] LABS: MANUAL DIFF FLAG NO
[2023-06-06 07:42] LABS: Basophils Percent Auto 0.4 % (0-2); Eosinophils Absolute Auto 0.2 X10*3/uL (0.0-0.4); Eosinophils Percent Auto 2.1 % (0-4); Hemoglobin 12.3 g/dl (14.0-18.0); Imm Gran Abs Auto 0.05 X10*3/uL (0.00-0.03); Imm Gran Pct Auto 0.5 % (0.0-0.4); Lymphocytes Absolute Auto 2.3 X10*3/uL (1.2-4.9); Lymphocytes Percent Auto 21.4 % (20-40); Mean Corpuscular HGB Conc 32.4 g/dl (31.0-36.0); Mean Corpuscular Hemoglobin 28.5 pg (27.0-33.0); Mean Platelet Volume 9.8 fL (9.4-12.4); Monocytes Absolute Auto 0.9 X10*3/uL (0.1-1.2); Monocytes Percent Auto 8.4 % (2-11); Neutrophils Absolute Auto 7.2 x10*3/uL (2.0-8.3); Neutrophils Percent Auto 67.2 % (45-73); Platelet Count 250 X10*3/uL (160-400); Red Blood Count 4.32 X10*6/uL (4.60-5.80); White Blood Count 10.7 X10*3/uL (4.8-10.8)
[2023-06-06 08:07] LABS: Anion Gap 18 (12-20); Blood Urea Nitrogen 96 mg/dL (9-16); Calcium 12.4 mg/dL (8.4-10.2); Carbon Dioxide 24 mmol/L (22-29); Chloride 104 mmol/L (96-108); Creatinine Clr Calc Pharmacy 24.9; Estimated Glomerular Filt Rate 27; Glucose Random 173 mg/dL (60-115); Potassium 3.8 mmol/L (3.3-5.1); Sodium 142 mmol/L (135-145)
[2023-06-06] MEDS: Multivitamin TABLET 1 TAB PO (08:30)
[2023-06-06] MEDS: Torsemide 20 MG TABLET 60 MG PO ×2 (08:30→20:06)
[2023-06-06] MEDS: Folic Acid 1 MG TABLET PO (08:30)
[2023-06-06] MEDS: valACYclovir HCL 1,000 MG TABLET 1000 MG PO (08:31)
[2023-06-06] MEDS: Hydrocortisone 2.5 % Rectal Cr 30 GM TUBE 1 APPL PR ×2 (08:34→20:06)
--- NOTE | 2023-06-06 08:42 | PC.NURSE ---
dr. krause at bedside, pt aware of plan of care.
[2023-06-06] MEDS: carvediloL 25 MG TABLET PO ×2 (10:11→20:06)
[2023-06-06] MEDS: Docusate Sodium 100 MG CAPSULE PO ×2 (10:11→20:05)
[2023-06-06] MEDS: Cinacalcet HCl 30 MG TABLET PO (10:11)
[2023-06-06] MEDS: allopurinoL 100 MG TABLET PO (10:11)
[2023-06-06] MEDS: Empagliflozin 10 MG TABLET PO (10:12)
[2023-06-06] MEDS: NIFEdipine ER 30 MG TAB.ER.24 PO (10:13)
[2023-06-06] MEDS: Mycophenolate Sodium 180 MG TABLET.DR 360 MG PO ×2 (10:13→20:05)
[2023-06-06] MEDS: Spironolactone 25 MG TABLET PO (10:15)
--- NOTE | 2023-06-06 10:17 | P.PNIM_ITS ---
Subjective Subjective Date of Service: 06/06/23 Interval History: c/o hemorrhoidal pain Review of Systems Review of Systems: Yes all other systems are reviewed and are negative Physical Exam Vital Signs: Vital Signs: Last Vital Signs Temp 98.0 F 06/06/23 09:58 Pulse 75 06/06/23 09:58 Resp 20 06/06/23 09:58 BP 131/50 L 06/06/23 09:58 Pulse Ox 99 06/06/23 09:58 O2 Del Method Room Air 06/06/23 09:58 BMI result Body Mass Index 25.7 Gen: in no acute distress HEENT: sclera anicteric, moist mucus membranes Neck: supple Lungs: clear to auscultation bilaterally Heart: regular rate and rhythm, no murmurs Abd: soft, non-tender, non-distended Ext: no edema Skin: warm/well-perfused Neuro: alert and oriented x3, no focal findings Psych: appropriate affect Objective Data Active Medications Acetaminophen (Acetaminophen 325 Mg Tablet) 650 mg PO Q6H PRN PRN Reason: Pain, Mild (Pain Scale 1-3) Last Admin: 06/06/23 06:39 Dose: 650 mg Documented By: DANICA Allopurinol (Allopurinol 100 Mg Tablet) 100 mg PO DAILY [facility] Last Admin: 06/06/23 10:11 Dose: 100 mg Documented By: ZURI Atorvastatin Calcium (Atorvastatin Calcium 20 Mg Tablet) 20 mg PO BEDTIME [facility] Carvedilol (Carvedilol 25 Mg Tablet) 25 mg PO BID [facility]; Protocol Last Admin: 06/06/23 10:11 Dose: 25 mg Documented By: ZURI Cinacalcet (Cinacalcet Hcl 30 Mg Tablet) 30 mg PO DAILY [facility] Last Admin: 06/06/23 10:11 Dose: 30 mg Documented By: ZURI Dextrose (Dextrose 50 % 25 Gm/50 Ml Syringe) 25 gm IVPUSH Q15M PRN; Protocol PRN Reason: per Hypoglycemia Standing Ord. Docusate Sodium (Docusate Sodium 100 Mg Capsule) 100 mg PO BID [facility] Last Admin: 06/06/23 10:11 Dose: 100 mg Documented By: ZURI Donepezil HCl (Donepezil Hcl 5 Mg Tablet) 5 mg PO BEDTIME [facility] Last Admin: 06/05/23 21:59 Dose: 5 mg Documented By: DANICA Doxazosin Mesylate (Doxazosin Mesylate 2 Mg Tablet) 4 mg PO BEDTIME [facility]; Protocol Last Admin: 06/05/23 22:00 Dose: 4 mg Documented By: DANICA Empagliflozin (Empagliflozin 10 Mg Tablet) 10 mg PO DAILY [facility] Last Admin: 06/06/23 10:12 Dose: 10 mg Documented By: ZURI Folic Acid (Folic Acid 1 Mg Tablet) 1 mg PO DAILY [facility] Last Admin: 06/06/23 08:30 Dose: 1 mg Documented By: ZURI Glucose (Glucose Gel 15 Gm Gel..Gram.) 15 gm PO Q15M PRN; Protocol PRN Reason: per Hypoglycemia Standing Ord. Hydrocortisone (Hydrocortisone 2.5 % Rectal Cr 30 Gm Tube) 1 appl [place] BID [facility] Last Admin: 06/06/23 08:34 Dose: 1 appl Documented By: ZURI Sodium Chloride (Ns) 1,000 mls @ 75 mls/hr IVCONT .[id number] [facility] Last Admin: 06/06/23 06:30 Dose: 75 mls/hr Documented By: DANICA Insulin Human Lispro (Insulin Lispro 100 Unit/Ml 3 Ml Vial) 0 unit SUBCUT QIDACHS [facility]; Protocol Last Admin: 06/06/23 08:31 Dose: Not Given Documented By: ZURI Non-Admin Reason: Patient Refused Comments: states that he does not take insulin , but po meds for his diabetes Multivitamins/Vitamin C (Multivitamin Tablet) 1 tab PO DAILY [facility] Last Admin: 06/06/23 08:30 Dose: 1 tab Documented By: ZURI Mycophenolate Sodium (Mycophenolate Sodium 180 Mg Tablet.Dr) 360 mg PO BID [facility] Last Admin: 06/06/23 10:13 Dose: 360 mg Documented By: ZURI Nifedipine (Nifedipine Er 30 Mg Tab.Er.24) 30 mg PO DAILY [facility]; Protocol Last Admin: 06/06/23 10:13 Dose: 30 mg Documented By: ZURI Ondansetron HCl (Ondansetron Hcl 4 Mg/2 Ml Vial) 4 mg IVPUSH Q8H PRN PRN Reason: Nausea and Vomiting Pharmacy Consult (Consult Rx Perform Med Rec) 1 each MISCELLANE ONCE PRN PRN Reason: Consult order Spironolactone (Spironolactone 25 Mg Tablet) 25 mg PO DAILY [facility]; Protocol Last Admin: 06/06/23 10:15 Dose: 25 mg Documented By: ZURI Torsemide (Torsemide 20 Mg Tablet) 60 mg PO BID [facility]; Protocol Last Admin: 06/06/23 08:30 Dose: 60 mg Documented By: ZURI Valacyclovir HCl (Valacyclovir Hcl 1,000 Mg Tablet) 1,000 mg PO DAILY [facility] Last Admin: 06/06/23 08:31 Dose: 1,000 mg Documented By: ZURI Labs 06/06/23 06:53 06/06/23 06:53 Labs: Laboratory Results - last 24 hr 06/05/23 06/05/23 06/05/23 11:41 11:41 11:41 MCV 86.8 MCH 28.4 MCHC 32.7 RDW 15.0 Plt Count 254 D MPV 9.3 L Immature Gran % (Auto) 0.3 Neut % (Auto) 74.9 H Lymph % (Auto) 17.4 L Morgan % (Auto) 6.1 Eos % (Auto) 0.9 Baso % (Auto) 0.4 Lymph # (Auto) 1.8 Morgan # (Auto) 0.6 Eos # (Auto) 0.1 Baso # (Auto) 0.0 Abs Immat Gran (auto) 0.03 Absolute Neuts (auto) 7.9 Absolute Nucleated RBC 0.000 Nucleated RBC % (auto) 0.0 Anion Gap 20 Estim Creat Clear Calc 19.2 Estimated GFR 20 POC Glucose Random Glucose 350 H* Calcium 12.7 H* D Magnesium 2.5 Total Bilirubin 1.2 H Direct Bilirubin 0.5 AST 23 ALT 35 Alkaline Phosphatase 145 H Total Creatine Kinase B-Natriuretic Peptide 176 H Total Protein 7.9 Albumin 4.5 Lipase 267 H Urine Color Urine Appearance Urine pH Ur Specific [place] Urine Protein Urine Glucose (UA) Urine Ketones Urine Blood Urine Nitrite Ur Leukocyte Esterase Urine RBC Urine WBC Ur Squamous Epith Cells Urine Bacteria Hyaline Casts Stool Occult Blood 06/05/23 06/05/23 06/05/23 16:45 16:45 16:59 MCV MCH MCHC RDW Plt Count MPV Immature Gran % (Auto) Neut % (Auto) Lymph % (Auto) Morgan % (Auto) Eos % (Auto) Baso % (Auto) Lymph # (Auto) Morgan # (Auto) Eos # (Auto) Baso # (Auto) Abs Immat Gran (auto) Absolute Neuts (auto) Absolute Nucleated RBC Nucleated RBC % (auto) Anion Gap 18 Estim Creat Clear Calc 21.3 Estimated GFR 23 POC Glucose Random Glucose 198 H Calcium 12.4 H Magnesium 2.5 Total Bilirubin Direct Bilirubin AST ALT Alkaline Phosphatase Total Creatine Kinase B-Natriuretic Peptide Total Protein Albumin Lipase Urine Color Yellow Urine Appearance Clear Urine pH 5.5 Ur Specific [place] 1.020 Urine Protein Trace Urine Glucose (UA) >=1000 H Urine Ketones Negative Urine Blood Negative Urine Nitrite Negative Ur Leukocyte Esterase Negative Urine RBC 0-2 Urine WBC 0-5 Ur Squamous Epith Cells 0-2 Urine Bacteria None Seen Hyaline Casts 0-2 Stool Occult Blood POSITIVE 06/05/23 06/05/23 06/06/23 17:49 21:54 06:53 MCV 88.0 MCH 28.5 MCHC 32.4 RDW 15.0 Plt Count 250 MPV 9.8 Immature Gran % (Auto) 0.5 H Neut % (Auto) 67.2 Lymph % (Auto) 21.4 Morgan % (Auto) 8.4 Eos % (Auto) 2.1 Baso % (Auto) 0.4 Lymph # (Auto) 2.3 Morgan # (Auto) 0.9 Eos # (Auto) 0.2 Baso # (Auto) 0.0 Abs Immat Gran (auto) 0.05 H Absolute Neuts (auto) 7.2 Absolute Nucleated RBC 0.000 Nucleated RBC % (auto) 0.0 Anion Gap Estim Creat Clear Calc Estimated GFR POC Glucose 154 H Random Glucose Calcium Magnesium Total Bilirubin Direct Bilirubin AST ALT Alkaline Phosphatase Total Creatine Kinase 18 L B-Natriuretic Peptide Total Protein Albumin Lipase Urine Color Urine Appearance Urine pH Ur Specific [place] Urine Protein Urine Glucose (UA) Urine Ketones Urine Blood Urine Nitrite Ur Leukocyte Esterase Urine RBC Urine WBC Ur Squamous Epith Cells Urine Bacteria Hyaline Casts Stool Occult Blood 06/06/23 06/06/23 06:53 07:13 MCV MCH MCHC RDW Plt Count MPV Immature Gran % (Auto) Neut % (Auto) Lymph % (Auto) Morgan % (Auto) Eos % (Auto) Baso % (Auto) Lymph # (Auto) Morgan # (Auto) Eos # (Auto) Baso # (Auto) Abs Immat Gran (auto) Absolute Neuts (auto) Absolute Nucleated RBC Nucleated RBC % (auto) Anion Gap 18 Estim Creat Clear Calc 24.9 Estimated GFR 27 POC Glucose 171 H Random Glucose 173 H Calcium 12.4 H Magnesium Total Bilirubin Direct Bilirubin AST ALT Alkaline Phosphatase Total Creatine Kinase B-Natriuretic Peptide Total Protein Albumin Lipase Urine Color Urine Appearance Urine pH Ur Specific [place] Urine Protein Urine Glucose (UA) Urine Ketones Urine Blood Urine Nitrite Ur Leukocyte Esterase Urine RBC Urine WBC Ur Squamous Epith Cells Urine Bacteria Hyaline Casts Stool Occult Blood Assessment and Plan (1) Hypercalcemia: Status: Acute Plan d2 73yo M with CKD4 s/p renal transplant 10/10 for ESRD from DM + HTN, HFrEF, HTN, HLD, YANETH, BPH, HCV treated [place] [facility] [place] for acute/chronic renal failure, found to have EF 45% + hyperCa, zoster of R buttock presenting with hemorrhoidal pain, constipation admitted for hyperCa hyperCa due to 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 - given 1 dose IV mpamidronate - IV fluid hydration - Nephrology consultation - continue cinecalcet - monitor Ca CKD4 s/p renal transplant - SCr at baseline - continue mycophenolate external hemorrhoid - non-thrombosed, non-bleeding - hydrocortisone cream, outpt Surgery consult R buttock herpes zoster, [place] [facility] [place] renally [place] valacylovir 1g daily x2wk [06/05-] HTN chronic HFrEF - continue spironolactone, torsemide, empagliflozin, carvedilol, nifedpine anemia of CKD - montior H+H BPH/LUTS - doxazosin DM2 - correction-dose lispro, DM diet unspecified dementia - donepezil VTE ppx - SCDs dispo - TBD In my clinical judgment, the patient requires continued inpatient hospitalization for the following reasons: hyperCa Time Spent With Patient Time: Total time managing care of this patient today _40___ minutes. Quality Stroke Does the patient have a stroke diagnosis?: No VTE Prior VTE?: No VTE Risk Level:: Medical - moderate - high VTE Device Contraindication: N/A - Device Ordered VTE Drug Contraindication: Treatment Not Indicated
[2023-06-06 11:16] LABS: Glucose, Whole Blood 206 mg/dL (60-115)
[2023-06-06 11:44] LABS: COVID-19 Test Negative (Negative); IDNOW Serial# BCCEAD1C
--- NOTE | 2023-06-06 11:47 | PM.CNNEP ---
History of Present Illness Reason for Consult Consult date: 06/06/23 Chief Complaint Chief complaint: hypercalcemia History of Present Illness Narrative: 73-year-old male with history of CKD stage 4 and a history of renal transplant in 09/2021 presented to the ED for evaluation of perianal irritation and bright red blood per rectum found to have hypercalcemia He was recently diagnosed with heart failure with reduced ejection fraction with EF 45-50%.? He recently had an admission to [facility] [place] and was also diagnosed with herpes zoster of the right buttock and was treated with IV acyclovir and discharged with only 2 days of valacyclovir;. CXR without any acute cardiopulmonary abnormality.? CT abdomen showed atrophic [place] kidneys and nonobstructing calculi and a right lower quadrant transplant kidney without peritransplant fluid collection or hydronephrosis.? Patient was given gentle IV fluids and zoledronic acid. Review of Systems Review of Systems 10 points ROS negative except for pertinent in HPI PMFSH Past Medical History Medical History Anemia BPH (benign prostatic hyperplasia) Cervical spondylosis Hepatitis C virus infection cured after antiviral drug therapy HTN (hypertension) Hypercholesterolemia Kidney failure Obesity (BMI 30-39.9) Pulmonary nodule, left Right patella fracture Screening for prostate cancer Family History Family History Father No problems noted. Mother No problems noted. Brother No problems noted. Brother No problems noted. Surgical History Surgical History Fistula of artery History of cholecystectomy History of colonoscopy History of esophagogastroduodenoscopy (EGD) History of renal transplant Social History Social History Housing: House Alcohol intake: former Patient Tobacco Use Status: Former Tobacco user Tobacco use type: Cigarette Smoked in Last 30 Days: No e-Cigarette/Vaping Use: Never Used Use of substances other than those prescribed or required for medical reasons: No Advance Directives: Yes Advance Directives on File: Yes Advance Directives Date on File: 02/04/21 Nutrition Risks: No Nutritional Risk service: No Current occupational status: retired Cognitive needs: No Hearing needs: No Vision needs: Yes Meds Allergies Allergy/AdvReac Type Severity Reaction Status Date / Time Penicillins [PENICILLINS] Allergy Unknown UNKNOWN Verified 06/05/23 11:17 rosuvastatin [From Crestor] Allergy Muscle Pain Verified 06/05/23 11:17 atorvastatin [From Lipitor] AdvReac Muscle Pain Verified 06/05/23 11:17 Active Medications: Current Medications Acetaminophen (Acetaminophen 325 Mg Tablet) 650 mg PO Q6H PRN PRN Reason: Pain, Mild (Pain Scale 1-3) Last Admin: 06/06/23 06:39 Dose: 650 mg Allopurinol (Allopurinol 100 Mg Tablet) 100 mg PO DAILY [facility] Last Admin: 06/06/23 10:11 Dose: 100 mg Atorvastatin Calcium (Atorvastatin Calcium 20 Mg Tablet) 20 mg PO BEDTIME [facility] Carvedilol (Carvedilol 25 Mg Tablet) 25 mg PO BID [facility]; Protocol Last Admin: 06/06/23 10:11 Dose: 25 mg Cinacalcet (Cinacalcet Hcl 30 Mg Tablet) 30 mg PO DAILY [facility] Last Admin: 06/06/23 10:11 Dose: 30 mg Dextrose (Dextrose 50 % 25 Gm/50 Ml Syringe) 25 gm IVPUSH Q15M PRN; Protocol PRN Reason: per Hypoglycemia Standing Ord. Docusate Sodium (Docusate Sodium 100 Mg Capsule) 100 mg PO BID [facility] Last Admin: 06/06/23 10:11 Dose: 100 mg Donepezil HCl (Donepezil Hcl 5 Mg Tablet) 5 mg PO BEDTIME [facility] Last Admin: 06/05/23 21:59 Dose: 5 mg Doxazosin Mesylate (Doxazosin Mesylate 2 Mg Tablet) 4 mg PO BEDTIME [facility]; Protocol Last Admin: 06/05/23 22:00 Dose: 4 mg Empagliflozin (Empagliflozin 10 Mg Tablet) 10 mg PO DAILY [facility] Last Admin: 06/06/23 10:12 Dose: 10 mg Folic Acid (Folic Acid 1 Mg Tablet) 1 mg PO DAILY [facility] Last Admin: 06/06/23 08:30 Dose: 1 mg Glucose (Glucose Gel 15 Gm Gel..Gram.) 15 gm PO Q15M PRN; Protocol PRN Reason: per Hypoglycemia Standing Ord. Hydrocortisone (Hydrocortisone 2.5 % Rectal Cr 30 Gm Tube) 1 appl [place] BID [facility] Last Admin: 06/06/23 08:34 Dose: 1 appl Sodium Chloride (Ns) 1,000 mls @ 75 mls/hr IVCONT .[id number] [facility] Last Admin: 06/06/23 06:30 Dose: 75 mls/hr Insulin Human Lispro (Insulin Lispro 100 Unit/Ml 3 Ml Vial) 0 unit SUBCUT QIDACHS [facility]; Protocol Last Admin: 06/06/23 08:31 Dose: Not Given Lidocaine (Lidocaine 5 % Ointment 35 Gm) 1 appl TOPICAL Q6H PRN; Protocol PRN Reason: rectal pain Multivitamins/Vitamin C (Multivitamin Tablet) 1 tab PO DAILY [facility] Last Admin: 06/06/23 08:30 Dose: 1 tab Mycophenolate Sodium (Mycophenolate Sodium 180 Mg Tablet.Dr) 360 mg PO BID [facility] Last Admin: 06/06/23 10:13 Dose: 360 mg Nifedipine (Nifedipine Er 30 Mg Tab.Er.24) 30 mg PO DAILY [facility]; Protocol Last Admin: 06/06/23 10:13 Dose: 30 mg Ondansetron HCl (Ondansetron Hcl 4 Mg/2 Ml Vial) 4 mg IVPUSH Q8H PRN PRN Reason: Nausea and Vomiting Oxycodone HCl (Oxycodone Hcl Immed Release 5 Mg Tablet) 5 mg PO Q4H PRN PRN Reason: severe pain Pharmacy Consult (Consult Rx Perform Med Rec) 1 each MISCELLANE ONCE PRN PRN Reason: Consult order Spironolactone (Spironolactone 25 Mg Tablet) 25 mg PO DAILY [facility]; Protocol Last Admin: 06/06/23 10:15 Dose: 25 mg Torsemide (Torsemide 20 Mg Tablet) 60 mg PO BID [facility]; Protocol Last Admin: 06/06/23 08:30 Dose: 60 mg Valacyclovir HCl (Valacyclovir Hcl 1,000 Mg Tablet) 1,000 mg PO DAILY [facility] Last Admin: 06/06/23 08:31 Dose: 1,000 mg Home Medications Medication Instructions Recorded Confirmed Last Taken Type folic acid 1 mg tablet 1 mg PO DAILY 02/08/22 06/05/23 Unknown History carvedilol 25 mg tablet 25 mg PO BID 01/11/23 06/05/23 02/16/23 History cinacalcet 30 mg tablet 30 mg PO DAILY 01/11/23 06/05/23 02/16/23 History doxazosin 4 mg tablet 4 mg PO BEDTIME 01/11/23 06/05/23 Unknown History blood sugar diagnostic (FreeStyle #10 ea 03/01/23 Unknown History Lite Strips) blood-glucose meter (FreeStyle #1 ea 03/01/23 Unknown History Lite Meter kit) lancets 28 gauge (FreeStyle #100 ea 03/01/23 Unknown History Lancets) mycophenolate sodium 360 mg 360 mg PO BID 03/01/23 06/05/23 Unknown History tablet,delayed release glipizide 5 mg tablet, extended 5 mg PO DAILY 05/08/23 06/05/23 Unknown History release 24 hr empagliflozin 10 mg tablet 10 mg PO DAILY 06/05/23 06/05/23 Unknown History (Jardiance) multivitamin with minerals 1 tab PO DAILY 06/05/23 06/05/23 Unknown History nifedipine 30 mg tablet,extended 30 mg PO DAILY 06/05/23 06/05/23 Unknown History release 24 hr rosuvastatin 5 mg tablet 5 mg PO BEDTIME 06/05/23 06/05/23 Unknown History spironolactone 25 mg tablet 25 mg PO DAILY 06/05/23 06/05/23 Unknown History torsemide 20 mg tablet 60 mg PO BID 06/05/23 06/05/23 Unknown History Physical Exam Vital Signs: Last Vital Signs Temp 97.9 F 06/06/23 11:45 Pulse 75 06/06/23 11:45 Resp 20 06/06/23 11:45 BP 152/64 H 06/06/23 11:45 Pulse Ox 99 06/06/23 11:45 O2 Del Method Room Air 06/06/23 11:45 BMI result Body Mass Index 25.7 Const General: no acute distress, alert and awake HEENT Head: Yes normocephalic and Yes atraumatic Neck Neck: Yes supple Resp Auscultation: clear to auscultation bilaterally Cardio Heart sounds: S1 normal heart sound present and S2 normal heart sound present GI Palpation (GI): Soft to palpation and nontender Extrem General: No edema Results Lab Results 06/06/23 06:53 06/06/23 06:53 Lab results: Chemistry 06/05/23 06/05/23 06/06/23 11:41 16:59 06:53 Sodium 133 L 137 142 Potassium 3.7 3.7 3.8 Carbon Dioxide 24 BUN 108 H 106 H 96 H Creatinine 3.09 H 2.78 H 2.38 H Calcium 12.7 H* D 12.4 H 12.4 H Hematology 06/05/23 06/06/23 11:41 06:53 WBC 10.5 10.7 Hgb 13.5 L D 12.3 L Plt Count 254 D 250 Urinalysis 06/05/23 16:45 Urine Color Yellow Urine Appearance Clear Urine pH 5.5 Ur Specific [place] 1.020 Urine Protein Trace Urine Glucose (UA) >=1000 H Urine Ketones Negative Urine Blood Negative Urine Nitrite Negative Ur Leukocyte Esterase Negative Urine RBC 0-2 Urine WBC 0-5 Ur Squamous Epith Cells 0-2 Hyaline Casts 0-2 Assessment and Plan (1) TRINO (acute kidney injury): Status: Acute (2) Hypercalcemia: Status: Acute (3) Renal transplant recipient: Status: Acute (4) CKD (chronic kidney disease) stage 4, GFR 15-29 ml/min: Status: Acute Plan TRINO due to renal hypoperfusion and hypercalcemia nephrotoxicity h/o renal transplant in 2020 currently on monthly belatecept (due today) and mycophenolate mofetil known severe CKD baseline Scr ~ 2-2.5 mg/dl elevated serum calcium in the setting of hyperparathyroidism need to r/o other s/p pamidronate (and not zoledronic acid) LVEF 45% REC IVF 0.9% 75 cc/hr c/w cinacalcet c/w MMF belatecept due to today (may need transfer to [facility] [place]) follow kidney function and electrolytes Time Spent With Patient Time: Total time managing care of this patient today ____ minutes. Procedures Date of Service Date of Service: 06/06/23
--- NOTE | 2023-06-06 12:23 | MHC.CM.ED ---
Met with patient, Marie and daughter in regards to discharge planning. Patient lives with , ambulates independently and had no services prior to coming to the hospital. No services anticipated to be needed because patient is not homebound. PCP verified. Patient received 3 Moderna and 1 Pfizer vaccines. HCP completed, signed and witnessed. Original given to patient. Copy placed in chart. Obs notice explained and signed. Patient's family will transport patient home when medically stable. Continue to monitor for d/c needs.
--- NOTE | 2023-06-06 12:30 | MHC.EDTECH ---
multiple bed changes have been completed at this point in the patient's care. incontinent of stool, patient complains of rectal burning, rn aware. this pct applying cream to rectum at every bed change.
[2023-06-06] MEDS: oxyCODONE HCl Immed Release 5 MG TABLET PO ×3 (12:44→23:41)
[2023-06-06] MEDS: Lidocaine 5 % Ointment 35 GM 1 APPL TOPICAL ×2 (12:44→23:40)
[2023-06-06] MEDS: Insulin Lispro 100 UNIT/ML 3 ML VIAL SUBCUT ×2 (13:16→20:06)
--- NOTE | 2023-06-06 14:32 | PC.NURSE ---
rn to rn report given to pt is aware of admission/transfer to room 482.
[2023-06-06 16:22] LABS: Glucose, Whole Blood 134 mg/dL (60-115)
[2023-06-06 19:56] LABS: Glucose, Whole Blood 177 mg/dL (60-115)
[2023-06-06] MEDS: Donepezil HCl 5 MG TABLET PO (20:05)
[2023-06-06] MEDS: Atorvastatin Calcium 20 MG TABLET PO (20:05)
[2023-06-06] MEDS: Doxazosin Mesylate 2 MG TABLET 4 MG PO (20:05)
[2023-06-07 04:00] VITALS: BP 135/64; PULSE 92; RESP 18; TEMP 36.6; O2SAT 92
[2023-06-07] MEDS: Acetaminophen 325 MG TABLET 650 MG PO (05:07)
[2023-06-07] MEDS: oxyCODONE HCl Immed Release 5 MG TABLET PO (05:08)
[2023-06-07 06:22] LABS: Anion Gap 15 (12-20); Blood Urea Nitrogen 80 mg/dL (9-16); Calcium 10.9 mg/dL (8.4-10.2); Carbon Dioxide 24 mmol/L (22-29); Chloride 104 mmol/L (96-108); Creatinine Clr Calc Pharmacy 28.1; Estimated Glomerular Filt Rate 31; Glucose Random 131 mg/dL (60-115); Potassium 3.2 mmol/L (3.3-5.1); Sodium 140 mmol/L (135-145)
[2023-06-07 07:10] VITALS: BP 167/70; PULSE 77; RESP 20; TEMP 36.7; O2SAT 99
[2023-06-07 07:22] LABS: Glucose, Whole Blood 135 mg/dL (60-115)
[2023-06-07] MEDS: NIFEdipine ER 30 MG TAB.ER.24 PO (07:55)
[2023-06-07] MEDS: carvediloL 25 MG TABLET PO (07:55)
[2023-06-07] MEDS: Empagliflozin 10 MG TABLET PO (07:55)
[2023-06-07] MEDS: Cinacalcet HCl 30 MG TABLET PO (07:55)
[2023-06-07] MEDS: Multivitamin TABLET 1 TAB PO (07:56)
[2023-06-07] MEDS: allopurinoL 100 MG TABLET PO (07:56)
[2023-06-07] MEDS: Folic Acid 1 MG TABLET PO (07:56)
[2023-06-07] MEDS: Torsemide 20 MG TABLET 60 MG PO (07:56)
[2023-06-07] MEDS: valACYclovir HCL 1,000 MG TABLET 1000 MG PO (07:56)
[2023-06-07] MEDS: Docusate Sodium 100 MG CAPSULE PO (07:56)
[2023-06-07] MEDS: Spironolactone 25 MG TABLET PO (07:56)
[2023-06-07] MEDS: Mycophenolate Sodium 180 MG TABLET.DR 360 MG PO (07:56)
[2023-06-07] MEDS: Lidocaine 5 % Ointment 35 GM 1 APPL TOPICAL (07:57)
[2023-06-07] MEDS: Hydrocortisone 2.5 % Rectal Cr 30 GM TUBE 1 APPL PR (07:57)
--- NOTE | 2023-06-07 08:51 | P.DS_ITS ---
DS: Providers Provider Date of Service: 06/07/23 Date of admission: 06/05/23 20:24 Date of discharge: 06/07/23 Primary care physician: Jonatan Anthony MD Consults: 06/05/23 20:24 Consult to Nephrology Routine Consulting Provider: Hansel Jaimes Reason for consultation: Hypercalcemia, s/p renal transplant DS: Diagnosis Discharge Diagnosis (1) TRINO (acute kidney injury): Status: Acute (2) Hypercalcemia: Status: Acute (3) Renal transplant recipient: Status: Acute (4) CKD (chronic kidney disease) stage 4, GFR 15-29 ml/min: Status: Acute (5) External hemorrhoids: Status: Acute (6) Zoster: Status: Acute DS: Summary Hospital Course Hospital Course: from admission H+P by hospitalist MARTHA Carrion, 06/05/23: 73-year-old male with history of CKD stage 4 who is s/p renal transplant in 09/2021 due to ESRD secondary to hypertension and type 2 diabetes, recently diagnosed heart failure with reduced ejection fraction, hypertension, dyslipidemia, obstructive sleep apnea, BPH, history of hepatitis-C treated presented to the ED earlier today with and daughter for evaluation of perianal irritation and bright red blood per rectum.? Patient was recently a dmitted to [facility] from 05/19-05/30 for management of acute on chronic renal failure with anasarca and during admission was also found to have HFrEF with EF 45-50% as well as hypercalcemia.? During admission, was also diagnosed with herpes zoster of the right buttock and was treated with IV acyclovir and discharged with only 2 days of valacyclovir which he reports completing as prescribed. This morning developed perianal irriation/itch and was concerned about recurrence of zoster. He denies any lesions currently or burning pain. On exam per ED provider, saccular lesions noted but nonbleeding, nonthrombosed external hemorrhoid at 09:00 o'clock noted with trace positive occult blood in stool. Endorses chronic constipation and straining. He does also ensorse anorexia ongoing since COVID-19 diagnosis in 03/12 and chronic fatigue. No n/v, myalgia, muscle twitching, cough, sob, lightheadedness, confusion, or chest pain. On arrival, vital signs stable.? No leukocytosis.? There is a mild normocytic anemia with H/H 13.5/41.3%.? Creatinine 2.76, BUN 106.? Electrolyte levels normal.? Initial calcium 12.7, repeat 12.4.? Albumin 4.5.? Corrected calcium 11.6.? Alkaline phosphatase 145.? BNP 176.? Total CK 18.? Lipase 267.? Urinalysis unremarkable except for significant glucose.? Labs reviewed from [facility] with significantly elevated PTH of 368.? Vitamin-D level 45.0.? CXR without any acute cardiopulmonary abnormality.? KUB shows mild constipation but no acute process.? CT abdomen/pelvis negative for any acute intra-abdominal abnormality which shows atrophic [place] kidneys with bilateral psis and nonobstructing calculi as well as constipation previously noted.? In the right lower quadrant is transplant kidney without peritransplant fluid collection or hydronephrosis.? Eighty did discuss case with Nephrology recommending admission for gentle IV fluids and zoledronic acid which is not available on formulary and pamidronate he has ordered in its place.? 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 He also had so me degree of TRINO superimposed on CKD4. He was given 1 dose of IV pamidronate as well as IV hydration with Nephrology consultation. Cinecalcet was continued. Serum calcium came down to 10.9 and serum creatinine improved from 3.09 to 2.11. He was discharged home and should repeat BMP in 1 week. He will go to [facility] for his monthly belatacept infusion for his renal transplant. As for the external hemorrhoid, it was non-thrombosed and non-bleeding. He was given hydrocortisone cream, lidocaine ointment, and docusate and will follow up with General Surgery for outpatient consultation. He was also found to have R buttock herpes zoster and given immunosuppression and renal insufficiency, was prescribed 2 weeks of renally dosed valacyclovir (1 g daily). Time Spent with Patient Time attestation: Total time managing care of this patient today ____ minutes. 40 Discharge coordination time: Greater than 30 minutes Quality: Safe Use of Opioids Does Pt have an Active Cancer Diagnosis on the Problem List?: No Quality: Stroke Does the patient have a stroke diagnosis?: No Physical Exam Vital Signs: Vital Signs: Last Vital Signs Temp 98.0 F 06/07/23 07:10 Pulse 77 06/07/23 07:10 Resp 20 06/07/23 07:10 BP 167/70 H 06/07/23 07:10 Pulse Ox 99 06/07/23 07:10 O2 Del Method Room Air 06/07/23 07:10 BMI result Body Mass Index 25.7 Gen: in no acute distress HEENT: sclera anicteric, moist mucus membranes Neck: supple Lungs: clear to auscultation bilaterally Heart: regular rate and rhythm, no murmurs Abd: soft, non-tender, non-distended Ext: no edema Skin: warm/well-perfused Neuro: alert and oriented x3, no focal findings Psych: appropriate affect DS: Data Data Completed and Pending Completed studies during hospitalization [Text1]: Laboratory Results WBC 10.7 X10*3/uL (4.8-10.8) 06/06/23 06:53 RBC 4.32 X10*6/uL (4.60-5.80) L 06/06/23 06:53 Hgb 12.3 g/dl (14.0-18.0) L 06/06/23 06:53 Hct 38.0 % (42.0-52.0) L 06/06/23 06:53 MCV 88.0 fL (80.0-98.0) 06/06/23 06:53 MCH 28.5 pg (27.0-33.0) 06/06/23 06:53 MCHC 32.4 g/dl (31.0-36.0) 06/06/23 06:53 RDW 15.0 % (11.0-16.0) 06/06/23 06:53 Plt Count 250 X10*3/uL (160-400) 06/06/23 06:53 MPV 9.8 fL (9.4-12.4) 06/06/23 06:53 Immature Gran % (Auto) 0.5 % (0.0-0.4) H 06/06/23 06:53 Neut % (Auto) 67.2 % (45-73) 06/06/23 06:53 Lymph % (Auto) 21.4 % (20-40) 06/06/23 06:53 Camas % (Auto) 8.4 % (2-11) 06/06/23 06:53 Eos % (Auto) 2.1 % (0-4) 06/06/23 06:53 Baso % (Auto) 0.4 % (0-2) 06/06/23 06:53 Lymph # (Auto) 2.3 X10*3/uL (1.2-4.9) 06/06/23 06:53 Camas # (Auto) 0.9 X10*3/uL (0.1-1.2) 06/06/23 06:53 Eos # (Auto) 0.2 X10*3/uL (0.0-0.4) 06/06/23 06:53 Baso # (Auto) 0.0 X10*3/uL (0.0-0.2) 06/06/23 06:53 Abs Immat Gran (auto) 0.05 X10*3/uL (0.00-0.03) H 06/06/23 06:53 Absolute Neuts (auto) 7.2 x10*3/uL (2.0-8.3) 06/06/23 06:53 Absolute Nucleated RBC 0.000 X10*3/uL (0.0-0.012) 06/06/23 06:53 Nucleated RBC % (auto) 0.0 /100WBC (0.0-0.2) 06/06/23 06:53 Sodium 140 mmol/L (135-145) 06/07/23 05:46 Potassium 3.2 mmol/L (3.3-5.1) L 06/07/23 05:46 Chloride 104 mmol/L (96-108) 06/07/23 05:46 Carbon Dioxide 24 mmol/L (22-29) 06/07/23 05:46 Anion Gap 15 (12-20) 06/07/23 05:46 BUN 80 mg/dL (9-16) H 06/07/23 05:46 Creatinine 2.11 mg/dL (0.5-1.4) H 06/07/23 05:46 Estim Creat Clear Calc 28.1 06/07/23 05:46 Estimated GFR 31 06/07/23 05:46 POC Glucose 135 mg/dL (60-115) H 06/07/23 07:18 Random Glucose 131 mg/dL (60-115) H 06/07/23 05:46 Calcium 10.9 mg/dL (8.4-10.2) H D 06/07/23 05:46 Magnesium 2.5 mg/dL (1.6-2.6) 06/05/23 16:59 Total Bilirubin 1.2 mg/dL (0.0-1.0) H 06/05/23 11:41 Direct Bilirubin 0.5 mg/dL (0.0-0.5) 06/05/23 11:41 AST 23 U/L (5-37) 06/05/23 11:41 ALT 35 U/L (0-40) 06/05/23 11:41 Alkaline Phosphatase 145 U/L (39-117) H 06/05/23 11:41 Total Creatine Kinase 18 U/L (38-174) L 06/05/23 17:49 B-Natriuretic Peptide 176 pg/mL (<100) H 06/05/23 11:41 Total Protein 7.9 g/dL (6.5-8.0) 06/05/23 11:41 Albumin 4.5 g/dL (3.5-5.0) 06/05/23 11:41 Lipase 267 U/L (8-78) H 06/05/23 11:41 Urine Color Yellow 06/05/23 16:45 Urine Appearance Clear 06/05/23 16:45 Urine pH 5.5 (5.0-9.0) 06/05/23 16:45 Ur Specific Andreas 1.020 (1.005-1.025) 06/05/23 16:45 Urine Protein Trace mg/dL (Neg-Trace) 06/05/23 16:45 Urine Glucose (UA) >=1000 mg/dL (Negative) H 06/05/23 16:45 Urine Ketones Negative mg/dL (Negative) 06/05/23 16:45 Urine Blood Negative (Negative) 06/05/23 16:45 Urine Nitrite Negative (Negative) 06/05/23 16:45 Ur Leukocyte Esterase Negative (Negative) 06/05/23 16:45 Urine RBC 0-2 /HPF (0-2) 06/05/23 16:45 Urine WBC 0-5 /HPF (0-5) 06/05/23 16:45 Ur Squamous Epith Cells 0-2 /HPF (0-2) 06/05/23 16:45 Urine Bacteria None Seen (None Seen) 06/05/23 16:45 Hyaline Casts 0-2 /LPF (0-2) 06/05/23 16:45 Stool Occult Blood POSITIVE (NEGATIVE) 06/05/23 16:45 COVID-19 (ADRIANA) Negative (Negative) 06/06/23 11:14 COVID-19 Clin Com See Note 06/06/23 11:14 Impressions Chest X-Ray 06/05/23 12:14 IMPRESSION: 1. Unremarkable chest exam. 2. Mild constipation. No acute process seen in the abdomen. 3. Moderate bridging osteophytes right mid and mid to lower dorsal spine. KUB X-Ray 06/05/23 12:14 IMPRESSION: 1. Unremarkable chest exam. 2. Mild constipation. No acute process seen in the abdomen. 3. Moderate bridging osteophytes right mid and mid to lower dorsal spine. Abdomen/Pelvis CT 06/05/23 15:02 IMPRESSION: No acute abnormality in the abdomen or pelvis. Atrophic [place] kidneys with bilateral cysts. Nonobstructing right renal calculus. No hydronephrosis. Constipation. Right lower quadrant transplant kidney without peritransplant fluid collection or transplant hydronephrosis. Discharge Plan Discharge Patient Disposition: Home, Self-Care Discharge Diagnosis: hypercalcemia renal transplant zoster hemorrhoids Referrals: Hansel Jaimes MD [Physician] - 1 Week Olayinka Elizondo MD [Physician] - 1 Week Po,Jonatan Leggett MD [Primary Care Provider] - 1 Week Discharge Medications: New valacyclovir 1 gram Tablet 1,000 mg PO DAILY Qty: 26 0RF hydrocortisone [Proctozone-HC] 2.5 % Cream With Perineal Applicator 1 appl RI BID Qty: 120 0RF docusate sodium 100 mg Capsule 100 mg PO BID Qty: 60 0RF lidocaine 5 % Ointment 1 appl topical Q6H PRN (Reason: rectal pain) Qty: 120 0RF Protocol: Apply to: Apply to: hemorrhoids Continued donepezil [Aricept] 5 mg tablet 5 mg PO BEDTIME 90 Days Qty: 90 2RF allopurinol 100 mg tablet 100 mg PO DAILY Qty: 90 2RF nifedipine 30 mg tablet extended release 24hr 30 mg PO DAILY torsemide 20 mg tablet 60 mg PO BID spironolactone 25 mg tablet 25 mg PO DAILY multivitamin with minerals Tablet 1 tab PO DAILY rosuvastatin 5 mg tablet 5 mg PO BEDTIME Jardiance 10 mg tablet 10 mg PO DAILY folic acid 1 mg tablet 1 mg PO DAILY doxazosin 4 mg tablet 4 mg PO BEDTIME carvedilol 25 mg tablet 25 mg PO BID Rx Instructions: must administer with a meal/food cinacalcet 30 mg tablet 30 mg PO DAILY glipizide 5 mg tablet extended release 24hr 5 mg PO DAILY (DME) FreeStyle Lite Strips Strip See Rx Instructions .ROUTE DAILY Qty: 10 Rx Instructions: As directed mycophenolate sodium 360 mg tablet,delayed release (DR/EC) 360 mg PO BID (DME) lancets [FreeStyle Lancets] 28 gauge misc See Rx Instructions .ROUTE DAILY Qty: 100 Rx Instructions: As directed (DME) blood-glucose meter [FreeStyle Lite Meter] Kit See Rx Instructions .ROUTE DAILY Qty: 1 Rx Instructions: As directed Discharge Orders: Discharge Order (Routine); Ordered 06/07/23 Ordered By: Ramon Woody Diet: Diabetic diet Activity on Discharge: As tolerated Stand Alone Forms: Patient Portal Discharge page Other Ambulatory Orders: Basic Metabolic Panel (Routine) Timeframe: 1 Week Facility: [facility] - Location: Laboratory Ordered By: Ramon Woody Care Plan Goals: renal health Health Concerns: hypercalcemia renal transplant zoster hemorrhoids Plan of Treatment: hypercalcemia resolving: repeat BMP in 1 week renal transplant: continue mycophenolate; go to [facility] today or tomorrow for infusion of belatacept for renal transplant zoster: take valacyclovir 1000 mg daily x 13 days hemorrhoids: drink plenty of fluids, eat plenty of fiber, take docusate, use hydrocortisone + lidocaine for pain relief, outpatient evaluation by General Surgery Assessment: See Discharge Summary.
--- NOTE | 2023-06-07 09:10 | MHC.CM.PN ---
PT MEDICALLY CLEARED FOR D/C HOME SELF CARE W/FAMILY FOR TRANSPORT
[2023-06-10 12:48] LABS: Calcium, Ionized 6.5 mg/dL (4.7-5.5)
== END 2023-06-07 11:22 | disposition home or self-care (01) ==
LOC: HO.ED 17:46 → HO.EDOVER 20:31 → HO.IMC 06-06 14:16
PROVIDERS: Physician Assistant Medical; Student in an Organized Health Care Education/Training Program; Admitting Provider Physician Assistant; Emergency Provider Emergency Medicine; PCP Internal Medicine; Visit Provider Family Medicine
DX: E21.3 Hyperparathyroidism, unspecified (principal); K62.5 Hemorrhage of anus and rectum; B02.9 Zoster without complications; K64.4 Residual hemorrhoidal skin tags; I13.0 Hypertensive heart and chronic kidney disease with heart failure and stage 1 through stage 4 chronic kidney disease, or unspecified chronic kidney disease; E11.22 Type 2 diabetes mellitus with diabetic chronic kidney disease; N18.4 Chronic kidney disease, stage 4 (severe); I50.20 Unspecified systolic (congestive) heart failure; N17.9 Acute kidney failure, unspecified; D63.1 Anemia in chronic kidney disease; E78.00 Pure hypercholesterolemia, unspecified; F03.90 Unspecified dementia, unspecified severity, without behavioral disturbance, psychotic disturbance, mood disturbance, and anxiety; Z20.822 Contact with and (suspected) exposure to COVID-19; Z94.0 Kidney transplant status; Z79.899 Other long term (current) drug therapy
CPT/HCPCS: 36415; 71046; 74018; 74176; 80048; 80076; 81001; 82272; 82330; 82550; 82947; 83690; 83735; 83880; 85025; 87635; 93005; 96361; 96365; 96366; 96372; 99222; 99285; J2430

== ENCOUNTER → 2023-06-05 11:25 | Outpatient (BNV) | payer MEDICARE, SELFPAY | PROVIDERS: PCP Internal Medicine; Visit Provider Internal Medicine Cardiovascular Disease | DX: R94.31 Abnormal electrocardiogram [ECG] [EKG] (principal) | CPT/HCPCS: 93010 ==

== ENCOUNTER → 2023-06-05 20:24 | Outpatient (BNV) | payer MEDICARE, SELFPAY | PROVIDERS: Admitting Provider Physician Assistant; Emergency Provider Emergency Medicine; PCP Internal Medicine; Visit Provider Physician Assistant | DX: N17.9 Acute kidney failure, unspecified (principal); E83.52 Hypercalcemia; N18.4 Chronic kidney disease, stage 4 (severe); Z94.0 Kidney transplant status; K64.4 Residual hemorrhoidal skin tags; B02.9 Zoster without complications | CPT/HCPCS: 99223; 99232; 99239 ==

== ENCOUNTER 2023-06-07 12:54 | Outpatient (AMB) | payer MEDICARE, SELFPAY ==
--- NOTE | 2023-06-07 12:56 | A.OFFVIS_ITS ---
Intake Vital Signs 06/07/23 13:10 Weight 156 lb 15.506 oz BP 119/61 Blood Pressure Location Rt brachial Position Standing Pulse 82 Intake Visit Reasons: hemorrhoids, rectal bleeding Intake Note: This patient presents for an assessment for hemorrhoids and rectal bleeding. Patient c/o; severe pain, incontinence, occasional rectal bleeding. [employer] Required: No Accompanied by: Spouse Allergies Penicillins [PENICILLINS] Allergy (Unknown, Verified 06/07/23 13:11) UNKNOWN rosuvastatin [From Crestor] Allergy (Verified 06/07/23 13:11) Muscle Pain atorvastatin [From Lipitor] Adverse Reaction (Verified 06/07/23 13:11) Muscle Pain Medication List - Last Reconciled 06/07/23 by Olayinka Elizondo MD allopurinol 100 mg PO DAILY blood sugar diagnostic (FreeStyle Lite Strips) As directed blood-glucose meter (FreeStyle Lite Meter kit) As directed carvedilol 25 mg PO BID cinacalcet 30 mg PO DAILY docusate sodium 100 mg PO BID donepezil (Aricept) 5 mg PO BEDTIME 90 days doxazosin 4 mg PO BEDTIME empagliflozin (Jardiance) 10 mg PO DAILY folic acid 1 mg PO DAILY glipizide ER 5 mg PO DAILY hydrocortisone 2.5% (Proctozone-HC) 1 appl MA BID lancets (FreeStyle Lancets) As directed lidocaine 5% 1 appl See Protocol topical Q6H PRN multivitamin with minerals 1 tab PO DAILY mycophenolate sodium 360 mg PO BID nifedipine ER 30 mg PO DAILY nitroglycerin 0.4%(w/w) (Rectiv) 1 inch MA BID rosuvastatin 5 mg PO BEDTIME spironolactone 25 mg PO DAILY torsemide 60 mg PO BID valacyclovir 1,000 mg PO DAILY HPI hemorrhoids, rectal bleeding HPI Details 73-year-old male referred for bleeding hemorrhoids. He has had significant pain with bowel movements passage of stool as well as afterwards. He describes this as a like a knife cutting his anus. This been going on for about 2 weeks. He also sees blood on wiping. He was just discharged from the hospital earlier today for hypercalcemia. He has had a kidney transplant for end-stage renal disease secondary to hypertensive nephropathy. He had the transplanted in 2020. He was with COVID last February, and was in [facility] . He was admitted to [facility] 2 weeks ago as well for on chronic heart failure swell and an ejection fraction of 40%. He also was diagnosed to have a zoster infection of the right buttock. He has been having significant pain with bowel movements and passage of stools. He denies being constipated. REPLACED BY [facility] Medical History (Updated 06/07/23 @ 13:34 by Olayinka Elizondo MD) Anal fissure Anemia BPH (benign prostatic hyperplasia) Cervical spondylosis Hepatitis C virus infection cured after antiviral drug therapy HTN (hypertension) Hypercholesterolemia Kidney failure Obesity (BMI 30-39.9) Pulmonary nodule, left Right patella fracture Screening for prostate cancer Surgical History Fistula of artery History of cholecystectomy History of colonoscopy History of esophagogastroduodenoscopy (EGD) History of renal transplant Family History Father No problems noted. Mother No problems noted. Brother No problems noted. Brother No problems noted. Social History Household Members: Spouse Housing: House Do you presently have visiting nurse or other home services: No Alcohol intake: former Patient Tobacco Use Status: Former Tobacco user Tobacco use type: Cigarette e-Cigarette/Vaping Use: Never Used Second Hand Smoke Exposure: No Advance Directives Date on File: 02/04/21 service: No Current occupational status: retired Cognitive needs: No Hearing needs: No Vision needs: Yes Review of Systems Const Denies chills and Denies fever(s) Card Denies chest pain, Denies dyspnea and Reports dyspnea on exertion Resp Denies cough, Denies dyspnea and Reports dyspnea on exertion GI Reports hematochezia and Denies change in bowel habits Denies hematuria and Denies difficulty urinating Musc Reports abnormal gait, Denies back pain, Denies limited range of motion and Reports muscle weakness Neuro Reports abnormal gait, Denies focal weakness and Denies convulsions Psych Denies depression and Denies mood swings Physical Exam Vital Signs: Last Vital Signs Pulse 82 06/07/23 13:10 BP 119/61 06/07/23 13:10 Const Other: Appears weak and frail but ambulates without assistance General: comfortable and no acute distress Orientation/consciousness: patient oriented x3 Neck Neck: Yes no lymphadenopathy Chest Chest palpation & inspection: normal inspection of the chest Resp Effort & Inspection: normal respiratory effort Auscultation: clear to auscultation bilaterally Cardio Rate: regular rate Rhythm: regular rhythm GI Other: Rectal exam - tender induration and fissure on the posterior midline, unable to tolerate digital rectal exam or anoscopy Palpation (GI): Soft to palpation, nontender and no guarding Neuro General: patient oriented x3 Office Procedures Anoscopy He was in yobani-knife position. The anoscope was gently inserted. A full examination of the anal canal was done. [id number] Assessment & Plan Assessment & Plan (1) Anal fissure: Code(s): K60.2 - Anal fissure, unspecified Plan: He has significant pain in the anus with bowel movements and what appears to be a posterior midline fissure. He has hypertonicity as well so I did not do any digital exam. I will prescribe him Nifedipine ointment to relax his sphincters. I instructed him on how to use this. He can continue with using lidocaine cream. I also instructed him to make sure that he follows up with this transplant team in [facility] as he has multiple medical issues. I told his that he is welcome to follow up in the office after 2-3 weeks if he does not have any relief. Medications: New nitroglycerin 0.4%(w/w) (Rectiv) 1 inch MA BID 30 grams 0RF Coding Level of Care Code New Pt Level 3 (17624) Diagnoses Anal fissure K60.2 CPT Codes Details - CPT: 98798-Rqlqrday ([id number])
[2023-06-07 13:10] VITALS: BP 119/61; PULSE 82
== END 2023-06-07 13:54 | disposition home or self-care (01) ==
PROVIDERS: PCP Internal Medicine; Visit Provider Surgery
DX: K60.2 Anal fissure, unspecified (principal)
CPT/HCPCS: 46600; 99203

== ENCOUNTER 2023-06-12 09:42 | Outpatient (AMB) | payer MEDICARE, SELFPAY ==
[2023-06-12 09:45] VITALS: BP 140/74; PULSE 81; O2SAT 96; BMI 25.3
--- NOTE | 2023-06-12 09:45 | MHC.PC.OV ---
Vital Signs 06/12/23 09:45 Height 5 ft 6 in Weight 157 lb BMI 25.3 BP 140/74 H Blood Pressure Location Lt brachial Position Sitting Pulse 81 Pulse Source Pulse Oximeter Pulse Oximetry (%) 96 Oxygen Delivery Method Room Air Intake Visit Reasons: DM, CKD Allergies Penicillins [PENICILLINS] Allergy (Unknown, Verified 06/12/23 09:45) UNKNOWN rosuvastatin [From Crestor] Allergy (Verified 06/12/23 09:45) Muscle Pain atorvastatin [From Lipitor] Adverse Reaction (Verified 06/12/23 09:45) Muscle Pain Tobacco use date assessed: 01/11/23 Fall risk assessment: No Falls in past year Last assessed Fall Risk: 06/12/23 Dental Screening Dental Screen Date: 06/12/23 Did you have a dental visit in the last 12 months?: Yes Did you have a dental problem in the last 6 months where you did not have access to dental care?: No Was dental information given to patient?: Patient has dentist HPI DM, CKD HPI Details 73-year-old obese male with diabetes mellitus chronic kidney disease having renal transplant recipient hypercholesterolemia hypertension chronic anemia coming in for follow-up. Last seen in December 2022. Patient has been having rectal bleeding and was seen by the icu staff nurse patient had an anoscopy done diagnosis of anal fissure prescribed nifedipine ointment relax the sphincter and continue with lidocaine cream. Before that time was in the emergency room had some fluid retention and diuresed. Patient also developed shingles and was treated with Valtrex had hypercalcemia and was treated with zoledronic acid and replaced with pamidronate. Review of the notes from Nephrology patient had swelling has been placed on torsemide. Review of the notes also in January had an EGD done. Has been followed up by Neurology also for the obstructive sleep apnea. patient is being bothered byt the rectal pain and has been rx a med that is not covered. asking for some pain med patient has tried the lidocaine, hydrocortisone but was told to stop that. Patient will be seeing the director of brand marketing tomorrow. Patient had wanted surgery on the hemorrhoids but was told to get clearance from Nephrology. [facility] Medical History (Updated 06/12/23 @ 10:26 by Jonatan Anthony MD) Anal fissure Anemia BPH (benign prostatic hyperplasia) Cervical spondylosis Hepatitis C virus infection cured after antiviral drug therapy HTN (hypertension) Hypercholesterolemia Kidney failure Obesity (BMI 30-39.9) Pulmonary nodule, left Right patella fracture Screening for prostate cancer Surgical History Fistula of artery History of cholecystectomy History of colonoscopy History of esophagogastroduodenoscopy (EGD) History of renal transplant Family History (Updated 06/12/23 @ 09:46 by Delores Rahman [facility]) Father No problems noted. Mother No problems noted. Brother No problems noted. Brother No problems noted. Social History Household Members: Spouse Housing: House Do you presently have visiting nurse or other home services: No Alcohol intake: former Patient Tobacco Use Status: Former Tobacco user Tobacco use type: Cigarette e-Cigarette/Vaping Use: Never Used Second Hand Smoke Exposure: No Advance Directives Date on File: 02/04/21 service: No Current occupational status: retired Cognitive needs: No Hearing needs: No Vision needs: Yes Questionnaire PHQ-9 Over the last 2 weeks, how often have you been bothered by any of the following problems? 1. Little interest or pleasure in doing things: more than half the days 2. Feeling down, depressed, or hopeless: not at all 3. Trouble falling or staying asleep, or sleeping too much: not at all 4. Feeling tired or having little energy: several days 5. Poor appetite or overeating: more than half the days 6. Feeling bad about yourself - or that you are a failure or have let yourself or your family down: not at all 7. Trouble concentrating on things, such as reading the newspaper or watching television: several days 8. Moving or speaking so slowly that other people could have noticed. Or the opposite - being so fidgety or restless that you have been moving around a lot more than usual: not at all 9. Thoughts that you would be better off or of hurting yourself in some way: not at all Total score: 6 Depression Screening Interpretation: Positive Source: Developed by Drs. Giuliano العلي, Nguyen Bañuelos, Tristan Perales and colleagues, with an educational gabby from [employer]. Thrive Questionnaire Date Thrive assessed: 02/22/23 AUDIT C Alcohol Use Questionnaire (AUDIT-C) 1. How often do you have a drink containing alcohol?: Monthly or less 2. How many drinks containing alcohol do you have on a typical day when you are drinking?: 1 or 2 3. How often do you have six or more drinks on one occasion?: Never Total Score: 1 LESA-7 AMB Questionnaire LESA-7 Date LESA - 7 assessed: 01/11/23 Source: Developed by Drs. Giuliano العلي, Nguyen Bañuelos, Tristan Perales and colleagues, with an educational gabby from [employer]. Physical exam (Primary Care) Vital Signs: Last Vital Signs Pulse 81 06/12/23 09:45 BP 140/74 H 06/12/23 09:45 Pulse Ox 96 06/12/23 09:45 Oxygen Delivery Method Room Air 06/12/23 09:45 BMI result Body Mass Index 25.3 Tobacco/Smoking Status: Tobacco use Status Tobacco use date assessed 01/11/23 06/12/23 09:46 Patient Tobacco Use Status Former Tobacco user 06/12/23 09:46 Tobacco use type Cigarette 06/12/23 09:46 e-Cigarette/Vaping Use Never Used 06/12/23 09:46 PHQ-9: PHQ-9 Score PHQ-9: Total score 6 06/12/23 09:57 Depression Screening Interpretation: Positive Thrive Assessment: Date of Thrive Assessment Date Thrive assessed 01/11/23 06/12/23 09:46 Const General: alert; No acute distress Eyes Conjunctivae: conjunctivae normal Resp Auscultation: clear to auscultation bilaterally Cardio Rate: regular rate Rhythm: regular rhythm GI Inspection: Yes normal to inspection Extrem General: Yes normal to inspection and No edema Results AMB Hemoglobin A1c AMB Hemoglobin A1c 6.4 % Last Edit by Delores Rahman CMA on 06/12/23 09:58 Results Reviewed Results Reviewed: Laboratory Last Values Hgb A1c (Clinic) 6.4 % (4.0-6.0) H 06/12/23 09:47 Assessment and Plan Assessment & Plan (1) Type 2 diabetes mellitus with hyperglycemia: Comment: [facility] Code(s): E11.65 - Type 2 diabetes mellitus with hyperglycemia Qualifiers: Diabetes mellitus alf insulin use: without research associate molecular biology use Qualified Code(s): E11.65 - Type 2 diabetes mellitus with hyperglycemia Plan: Decrease the amount of carbohydrate intake, pasta, bread, rice and potatoes are all sugar and that is aside from all the sweet stuff, remember that fruits are good but they are Sweet also. Hemoglobin A1c goal of less than 7.0 (2) Chronic kidney disease: Comment: on Dialysis Dr. Alexis Code(s): N18.9 - Chronic kidney disease, unspecified Qualifiers: Chronic kidney disease stage: on chronic dialysis Qualified Code(s): N18.6 - End stage renal disease; Z99.2 - Dependence on renal dialysis Plan: Patient follows up with Nephrology (3) Renal transplant recipient: Comment: Cadaver[facility] renal transplant right iliac fossa September 2021 Code(s): Z94.0 - Kidney transplant status Plan: Patient follows up with Nephrology, on immunosuppressant (4) Obstructive sleep apnea (adult) (pediatric): Code(s): G47.33 - Obstructive sleep apnea (adult) (pediatric) Plan: Patient continues to follow-up with Neurology on CPAP uses it more than 4 hours a night and benefits from this (5) Obesity (BMI 30-39.9): Code(s): E66.9 - Obesity, unspecified Plan: Diet and exercise (6) Hypercholesterolemia: Code(s): E78.00 - Pure hypercholesterolemia, unspecified Plan: Avoid fried foods, chicken skin, eggs, butter margarine, pastries and meat. Be it pork or beef they have a lot of cholesterol LDL goal of less than 70 patient is on rosuvastatin 5 mg in the last blood work was done in November 2022 (7) HTN (hypertension): Code(s): I10 - Essential (primary) hypertension Qualifiers: Hypertension type: essential hypertension Qualified Code(s): I10 - Essential (primary) hypertension Plan: Continue with blood pressure medication. Decrease salt intake and exercise patient takes torsemide 60 mg twice a day spironolactone 25 mg once a day nifedipine at 30 mg once a day carvedilol 25 mg once a day (8) Hypercalcemia: Code(s): E83.52 - Hypercalcemia (9) Anal fissure: Code(s): K60.2 - Anal fissure, unspecified Plan: Patient has had an anoscopy of by the surgeon and placed on nitroglycerin cream/ointment (10) Rectal pain: Code(s): K62.89 - Other specified diseases of anus and rectum Orders: Orders AMB Hemoglobin A1c Today Z13.9 - Encounter for screening, unspecified Medications: New oxycodone-acetaminophen 5-325 mg (Percocet) Partial Fill upon patient request. 1 tab PO DAILY PRN 10 tabs 0RF pain K62.89 - Other specified diseases of anus and rectum Coding Level of Care Code Est Pt Level 4 (95421) Diagnoses Type 2 diabetes mellitus with hyperglycemia E11.65 Diabetes mellitus research associate molecular biology insulin use: without alf use Chronic kidney disease N18.6; Z99.2 Chronic kidney disease stage: on chronic dialysis Renal transplant recipient Z94.0 Obstructive sleep apnea (adult) (pediatric) G47.33 Obesity (BMI 30-39.9) E66.9 Hypercholesterolemia E78.00 HTN (hypertension) I10 Hypertension type: essential hypertension Hypercalcemia E83.52 Anal fissure K60.2 Rectal pain K62.89 Additional Codes PHQ-9 - 06040 - PHQ-9 Billing: Y ([id number])
== END 2023-06-12 10:31 | disposition home or self-care (01) ==
PROVIDERS: Visit Provider Internal Medicine
DX: E11.22 Type 2 diabetes mellitus with diabetic chronic kidney disease (principal); N18.6 End stage renal disease; Z99.2 Dependence on renal dialysis; Z94.0 Kidney transplant status; I12.0 Hypertensive chronic kidney disease with stage 5 chronic kidney disease or end stage renal disease; E11.65 Type 2 diabetes mellitus with hyperglycemia; G47.33 Obstructive sleep apnea (adult) (pediatric); E66.9 Obesity, unspecified; E83.52 Hypercalcemia
CPT/HCPCS: 83036; 99214

== ENCOUNTER 2023-06-15 12:58 | Outpatient (AMB) | payer MEDICARE, SELFPAY ==
[2023-06-15 13:04] VITALS: BP 128/56; PULSE 88; BMI 25.3
--- NOTE | 2023-06-15 13:04 | A.OFFVIS_ITS ---
Intake Vital Signs 06/15/23 13:04 Height 5 ft 6 in Weight 156 lb 8.451 oz BMI 25.3 BP 128/56 L Blood Pressure Location Lt brachial Position Sitting Pulse 88 Intake Visit Reasons: re-discuss surgery Intake Note: Patient here to re- discuss hemorrhoidectomy. Patient c/o severe pain with hemorrhoids. Feels like there is a large growth hanging out from anus. Patient c/o severe pain flare up for the past 12 days. Taking gabapentin and tylenol with codeine. 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 Accompanied by: spouse, daughter Allergies Penicillins [PENICILLINS] Allergy (Unknown, Verified 06/15/23 13:08) UNKNOWN rosuvastatin [From Crestor] Allergy (Verified 06/15/23 13:08) Muscle Pain atorvastatin [From Lipitor] Adverse Reaction (Verified 06/15/23 13:08) Muscle Pain Medication List - Last Reconciled 06/15/23 by Olayinka Elizondo MD allopurinol 100 mg PO DAILY blood sugar diagnostic (FreeStyle Lite Strips) As directed blood-glucose meter (FreeStyle Lite Meter kit) As directed carvedilol 25 mg PO BID cinacalcet 30 mg PO DAILY docusate sodium 100 mg PO BID donepezil (Aricept) 5 mg PO BEDTIME 90 days doxazosin 4 mg PO BEDTIME empagliflozin (Jardiance) 10 mg PO DAILY folic acid 1 mg PO DAILY gabapentin 300 mg PO DAILY glipizide ER 5 mg PO DAILY hydrocortisone 2.5% (Proctozone-HC) 1 appl NM BID hydrocortisone acetate (Anucort-HC) 25 mg NM BID PRN lancets (FreeStyle Lancets) As directed lidocaine 5% 1 appl See Protocol topical Q6H PRN lidocaine 5% 1 appl topical TID PRN multivitamin with minerals 1 tab PO DAILY mycophenolate sodium 360 mg PO BID nifedipine ER 30 mg PO DAILY nitroglycerin 0.4%(w/w) (Rectiv) 1 inch NM BID oxycodone-acetaminophen 5-325 mg (Percocet) 1 tab PO DAILY PRN oxycodone-acetaminophen 5-325 mg (Percocet) 1 tab PO .at bedtime PRN psyllium husk (Metamucil) 1 tbsp PO DAILY rosuvastatin 5 mg PO BEDTIME spironolactone 25 mg PO DAILY torsemide 60 mg PO BID valacyclovir 1,000 mg PO DAILY HPI re-discuss surgery HPI Details I had seen him 2 weeks ago because of anal pain. It appears that he had an anal fissure at that time along with hemorrhoids I had prescribed him rectum. However, he says that he continues to have pain especially at night. He says that is more of pressure in the anus. Furthermore, he says that this is aggravated by the his stool leakage. He says he has loose stools now and frequently leaks because of this. He is a kidney transplant recipient and had seen his transplant team yesterday and was referred back to me. He feels that because of this leakage of stool, he continues to have pain in the area. [facility] Medical History Anal fissure Anemia BPH (benign prostatic hyperplasia) Cervical spondylosis Hepatitis C virus infection cured after antiviral drug therapy HTN (hypertension) Hypercholesterolemia Kidney failure Obesity (BMI 30-39.9) Pulmonary nodule, left Right patella fracture Screening for prostate cancer Surgical History Fistula of artery History of cholecystectomy History of colonoscopy History of esophagogastroduodenoscopy (EGD) History of renal transplant Family History Father No problems noted. Mother No problems noted. Brother No problems noted. Brother No problems noted. Social History Household Members: Spouse Housing: House Do you presently have visiting nurse or other home services: No Alcohol intake: former Patient Tobacco Use Status: Former Tobacco user Tobacco use type: Cigarette e-Cigarette/Vaping Use: Never Used Second Hand Smoke Exposure: No Advance Directives Date on File: 02/04/21 service: No Current occupational status: retired Cognitive needs: No Hearing needs: No Vision needs: Yes Physical Exam Vital Signs: Last Vital Signs Pulse 88 06/15/23 13:04 BP 128/56 L 06/15/23 13:04 BMI result Body Mass Index 25.3 Const Other: sitting down on chair General: comfortable Resp Effort & Inspection: normal respiratory effort GI Other: rectal exam - internal and external hemorrhoids, diffusely tender, irritation on perianal area, no obvious masses on digital exam, anoscopy not done due to tenderness, some hypertonicity Palpation (GI): Soft to palpation Assessment & Plan Assessment & Plan (1) Rectal pain: Code(s): K62.89 - Other specified diseases of anus and rectum Plan: It appears that there may be a lot of irritation in the anal canal and perianal area due to his frequent stool leakage from watery stools. I told him therefore that doing any form surgery to decrease this sphincter tone like sphincterotomy worsened this. I am going to prescribe him lidocaine ointment, and the steroid suppository to help with inflammation and pain. He can have Percocet at night where he says the pain seems to be worse. I have instructed him to take Metamucil help with stool consistency. I will see him in the office in about 2 weeks. His family was with him during the visit and are comfortable with the plan. Medications: New lidocaine 5% 1 appl topical TID PRN 30 grams 0RF pain oxycodone-acetaminophen 5-325 mg (Percocet) Partial Fill upon patient request. 1 tab PO .at bedtime PRN 14 tabs 0RF pain hydrocortisone acetate (Anucort-HC) 25 mg NM BID PRN 24 ea 2RF anal pain psyllium husk (Metamucil) mix into at least 8 oz of water or juice before administering 1 tbsp PO DAILY 660 grams 0RF Coding Level of Care Code Est Pt Level 3 (50680) Diagnoses Rectal pain K62.89
== END 2023-06-15 13:20 | disposition home or self-care (01) ==
PROVIDERS: PCP Internal Medicine; Visit Provider Surgery
DX: K62.89 Other specified diseases of anus and rectum (principal)
CPT/HCPCS: 99213

== ENCOUNTER → 2023-06-15 12:58 | Outpatient (BNVA) | payer MEDICARE, SELFPAY | PROVIDERS: PCP Internal Medicine; Visit Provider Surgery | DX: K62.89 Other specified diseases of anus and rectum (principal) | CPT/HCPCS: 99212 ==

== ENCOUNTER 2023-06-19 09:37 | Outpatient (AMB) | payer MEDICARE, SELFPAY ==
--- NOTE | 2023-06-19 09:44 | MHC.OFFVIS ---
Intake Vital Signs 06/19/23 09:45 Height 5 ft 6 in Weight 154 lb 5.177 oz BMI 24.9 BP 107/54 L Blood Pressure Location Rt brachial Position Sitting Pulse 76 Intake Visit Reasons: 4 week fu Intake Note: Maninder presents in the office as a 4 week follow up. CC: He states that he is not having any concerns today - he wa unable to get Lidocaine cream - Dr Elizondo office is working on PA. 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 Initial visit 02/06/23: Patient presents in the office with his daughter. States that for the past 6 months, he has been experiencing postprandial fullness and nausea. Occurs with any type of food he eats, even water. Describes a sensation of feeling full, and bloated. Wonders if he has fluid around his belly . No changes in appetite, but does report early satiety. No unintentional weight loss. No regurgitation, dysphagia or vomiting associated with the nausea. Initially was attributed to Sensipar, however this by decreasing the dose to half of what he used to take, is not notice any changes in his symptoms. History of cholecystectomy in his 20s. Last colonoscopy was in 2020, at [facility], prior to his renal transplant and reportedly normal. Was given a 10 year interval. No history of peptic ulcer disease. Does not take any NSAIDs. Former smoker. No family history of stomach or colon cancer. 02/16/23 EGD: Irregular Z line (biopsy) Hiatal hernia Inlet patch Normal stomach (biopsy) Duodenal polyps (biopsy) Enlarged major papilla (biopsy) Path: A.? Duodenum, biopsy:? Duodenal mucosa with preserved villi and no specific change.? B.? Duodenum, enlarged papilla, biopsy:? Duodenal mucosa with preserved villi and no specific change; no adenomatous dysplasia or carcinoma identified. C.? Duodenum, polyps:? Duodenal mucosa with polypoid gastric heterotopia; negative for adenomatous dysplasia.? D.? Stomach, random, biopsy:? Gastric antral and body mucosa with mild reactive changes and focal minimal chronic inactive inflammation; negative for H pylori, intestinal metaplasia and dysplasia. E.? Gastroesophageal junction, biopsy:? Squamocolumnar mucosa with marked hyperplastic degenerative changes and mild chronic active inflammation; negative for intestinal metaplasia and dysplasia.? 03/01/23: Today, reports persistent abd discomfort with nausea and decreased appetite. 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 No changes in BM, diarrhea or blood in stool. EGD and path results reviewed with the pt. Labs also reviewed - pertinent for resolved HBV status. HCV s/p SVR. Scheduled for upper GI series for early March. 04/19/23: [facility]GIS reviewed: consistent with mild reflux. Started omeprazole almost 10 days ago and does notice improvement in abd discomfort and nausea however main complaint remains bloating elyssa postprandially. Not associated with change in bowel movement or appetite. 05/08/23: Pt requested to be sooner due to worsenign abd distention leading to reduced appetite and stamina. Does not think rifaximin helped. Looks sigificantly distended today compared to last visit. No fevers, chills, change in urination or BMs. Had renal bx done earlier this week. To recall US Abd 02/2023 without significant fluid. 06/19/23: Had two admissions April ([facility] [place] - had significant hypervolumia. 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 Will be seeing Cardiology and transplant street sweeper in upcoming weeks for further eval. Diuretics now: Torsemide 60 BID Spironolactone 25 once daily Reports significant decrease in weight since starting this regimen of almost 30-40 lbs since April with resultant improvement in shortness of breath, fatigue, abdominal distention and appetite. Imaging [place] [facility] [place] [facility] [place] - no free fluid/ascitic fluid noted. Suspect most of the abd distention was likely due to gut and abd wall edema. More recently has also been experiencing significant perianal pain and discomfort- seen by Dr Elizondo, possibly has anal fissure and symptomatic hemorrhoids. Pt has not been able to take topical lidocaine or hydrocort due to very high out of pocket cost. [facility] Medical History Anal fissure Anemia BPH (benign prostatic hyperplasia) Cervical spondylosis Hepatitis C virus infection cured after antiviral drug therapy HTN (hypertension) Hypercholesterolemia Kidney failure Obesity (BMI 30-39.9) Pulmonary nodule, left Right patella fracture Screening for prostate cancer Surgical History Fistula of artery History of cholecystectomy History of colonoscopy History of esophagogastroduodenoscopy (EGD) History of renal transplant Family History Father No problems noted. Mother No problems noted. Brother No problems noted. Brother No problems noted. Social History Household Members: Spouse Housing: House Do you presently have visiting nurse or other home services: No Alcohol intake: former Patient Tobacco Use Status: Former Tobacco user Tobacco use type: Cigarette e-Cigarette/Vaping Use: Never Used Second Hand Smoke Exposure: No Advance Directives Date on File: 02/04/21 service: No Current occupational status: retired Cognitive needs: No Hearing needs: No Vision needs: Yes Physical Exam Vital Signs: Last Vital Signs Pulse 76 06/19/23 09:45 BP 107/54 L 06/19/23 09:45 BMI result Body Mass Index 24.9 Gen appear: No acute distress, well nourished HEENT: no icterus, no cervical lymphadenopathy Chest: No overt resp distress CVS: S1/S2, regular Abd: soft, mildly distended, pannus edema resolved Psych: Stable affect, answering questions appropriately Neuro: A/Ox3 noted to move all extremities spontaneously Ext: peripheral edema + Assessment & Plan Assessment & Plan (1) History of hepatitis C: Code(s): Z86.19 - Personal history of other infectious and parasitic diseases (2) Elevated alkaline phosphatase level: Code(s): R74.8 - Abnormal levels of other serum enzymes (3) Abdominal pain: Code(s): R10.9 - Unspecified abdominal pain (4) Bloating: Code(s): R14.0 - Abdominal distension (gaseous) (5) Hepatitis B core antibody positive: Code(s): R76.8 - Other specified abnormal immunological findings in serum Plan 1. 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 - Much improved since increasing diuretics to torsemide 60 BID and adding spironolactone 25 mg once daily - No evidence of large volume ascites on any imaging - Echo already performed in [facility] during hospital admission, will cancel outpatient order 2. Anal fissure/hemorrhoids: Good Rx coupon given and lidocaine + [facility] (appears to be offering lowest out of pocket cost) Follow up with Dr Elizondo as per schedule 2. Resolved HBV status: Completed 6m of entecavir post transplant. Intermediate risk for reactivation as hes on post-transplant immunosuppression. - Repeat HBV labs due in Oct 2023. Follow up in 4 weeks Medications: Refilled hydrocortisone acetate (Anucort-HC) 25 mg SC BID PRN 24 ea 2RF anal pain lidocaine 5% 1 appl See Protocol topical Q6H PRN 120 grams 0RF rectal pain Coding Level of Care Code Est Pt Level 4 (05447) Diagnoses History of hepatitis C Z86.19 Elevated alkaline phosphatase level R74.8 Abdominal pain R10.9 Bloating R14.0 Hepatitis B core antibody positive R76.8
[2023-06-19 09:45] VITALS: BP 107/54; PULSE 76; BMI 24.9
== END 2023-06-19 10:30 | disposition home or self-care (01) ==
PROVIDERS: PCP Internal Medicine; Visit Provider Internal Medicine
DX: Z86.19 Personal history of other infectious and parasitic diseases (principal); R74.8 Abnormal levels of other serum enzymes; R10.9 Unspecified abdominal pain; R14.0 Abdominal distension (gaseous); R76.8 Other specified abnormal immunological findings in serum
CPT/HCPCS: 99214

== ENCOUNTER → 2023-06-19 09:37 | Outpatient (BNVA) | payer MEDICARE, SELFPAY | PROVIDERS: PCP Internal Medicine; Visit Provider Internal Medicine | DX: R74.8 Abnormal levels of other serum enzymes (principal); R10.9 Unspecified abdominal pain; R14.0 Abdominal distension (gaseous); Z86.19 Personal history of other infectious and parasitic diseases | CPT/HCPCS: 99212 ==

== ENCOUNTER 2023-06-29 15:11 | Outpatient (AMB) | payer MEDICARE, SELFPAY ==
--- NOTE | 2023-06-29 15:18 | A.OFFVIS_ITS ---
Intake Vital Signs 06/29/23 15:19 Height 5 ft 6 in Weight 156 lb 8.451 oz BMI 25.3 BP 125/58 L Blood Pressure Location Rt brachial Position Sitting Pulse 72 Intake Visit Reasons: Rectal pain, 2 wk follow up Intake Note: This patient presents for a two week follow-up assessment for rectal pain. Patient c/o; reports improvement since last visit, denies changes or new complaints at this time. 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 Accompanied by: Spouse Allergies Penicillins [PENICILLINS] Allergy (Unknown, Verified 06/29/23 15:25) UNKNOWN rosuvastatin [From Crestor] Allergy (Verified 06/29/23 15:25) Muscle Pain atorvastatin [From Lipitor] Adverse Reaction (Verified 06/29/23 15:25) Muscle Pain Medication List - Last Reconciled 06/29/23 by Olayinka Elizondo MD allopurinol 100 mg PO DAILY blood sugar diagnostic (FreeStyle Lite Strips) As directed blood-glucose meter (FreeStyle Lite Meter kit) As directed carvedilol 25 mg PO BID cinacalcet 30 mg PO DAILY docusate sodium 100 mg PO BID donepezil (Aricept) 5 mg PO BEDTIME 90 days doxazosin 4 mg PO BEDTIME empagliflozin (Jardiance) 10 mg PO DAILY folic acid 1 mg PO DAILY gabapentin 300 mg PO DAILY glipizide ER 5 mg PO DAILY hydrocortisone acetate (Anucort-HC) 25 mg CA BID PRN lancets (FreeStyle Lancets) As directed lidocaine 5% 1 appl See Protocol topical Q6H PRN multivitamin with minerals 1 tab PO DAILY mycophenolate sodium 360 mg PO BID nifedipine ER 30 mg PO DAILY nitroglycerin 0.4%(w/w) (Rectiv) 1 inch CA BID oxycodone-acetaminophen 5-325 mg (Percocet) 1 tab PO .at bedtime PRN psyllium husk (Metamucil) 1 tbsp PO DAILY rosuvastatin 5 mg PO BEDTIME spironolactone 25 mg PO DAILY torsemide 60 mg PO BID valacyclovir 1,000 mg PO DAILY HPI Rectal pain, 2 wk follow up HPI Details I had seen him last June 15 because of his anal pain. It appeared he had some significant perianal skin irritation due to frequent watery stools. I had prescribed him lidocaine cream as well as a steroid suppository. He now feels much better. He says his pain and burning sensation around his anus has almost resolved. He is able to sit down comfortably. He has good bowel movements. [facility] Medical History Anal fissure Anemia BPH (benign prostatic hyperplasia) Cervical spondylosis Hepatitis C virus infection cured after antiviral drug therapy HTN (hypertension) Hypercholesterolemia Kidney failure Obesity (BMI 30-39.9) Pulmonary nodule, left Right patella fracture Screening for prostate cancer Surgical History Fistula of artery History of cholecystectomy History of colonoscopy History of esophagogastroduodenoscopy (EGD) History of renal transplant Family History (Reviewed 06/29/23 @ 15: by Olayinka Elizondo MD) Father No problems noted. Mother No problems noted. Brother No problems noted. Brother No problems noted. Social History Household Members: Spouse Housing: House Do you presently have visiting nurse or other home services: No Alcohol intake: former Patient Tobacco Use Status: Former Tobacco user Tobacco use type: Cigarette e-Cigarette/Vaping Use: Never Used Second Hand Smoke Exposure: No Advance Directives Date on File: 02/04/21 service: No Current occupational status: retired Cognitive needs: No Hearing needs: No Vision needs: Yes Review of Systems Const Denies chills and Denies fever(s) Card Denies chest pain, Denies dyspnea and Denies dyspnea on exertion Resp Denies cough, Denies dyspnea and Denies dyspnea on exertion GI Denies hematochezia and Denies change in bowel habits Denies hematuria and Denies difficulty urinating Musc Denies back pain and Denies limited range of motion Neuro Denies focal weakness and Denies convulsions Psych Denies depression and Denies mood swings Physical Exam Vital Signs: Last Vital Signs Pulse 72 06/29/23 15:19 BP 125/58 L 06/29/23 15:19 BMI result Body Mass Index 25.3 Const General: comfortable and no acute distress Resp Effort & Inspection: normal respiratory effort GI Other: Rectal exam - perianal area with any redness, no discharge, no tenderness, no induration Assessment & Plan Assessment & Plan (1) Rectal pain: Code(s): K62.89 - Other specified diseases of anus and rectum Plan: His symptoms have resolved. He states that the steroid suppository as well as the lidocaine cream of help a lot. There is no perianal lesion. There is no skin down nor bleeding or inflammatory changes He can therefore follow up on a p.r.n. basis. His symptoms may have been secondary to an anal fissure or hemorrhoids that had become inflated in irritated with his frequent bowel movements. Coding Level of Care Code Est Pt Level 3 (20649) Diagnoses Rectal pain K62.89
[2023-06-29 15:19] VITALS: BP 125/58; PULSE 72; BMI 25.3
== END 2023-06-29 15:28 | disposition home or self-care (01) ==
PROVIDERS: PCP Internal Medicine; Visit Provider Surgery
DX: K62.89 Other specified diseases of anus and rectum (principal)
CPT/HCPCS: 99213

== ENCOUNTER → 2023-06-29 15:11 | Outpatient (BNVA) | payer MEDICARE, SELFPAY | PROVIDERS: PCP Internal Medicine; Visit Provider Surgery | DX: K62.89 Other specified diseases of anus and rectum (principal) | CPT/HCPCS: 99212 ==

== ENCOUNTER 2023-07-05 | Outpatient (REF) | payer MEDICARE, SELFPAY | END 2023-07-05 00:01 | disposition home or self-care (01) | LOC: CF | PROVIDERS: PCP Internal Medicine; Visit Provider Surgery | DX: R14.0 Abdominal distension (gaseous) (principal); K60.2 Anal fissure, unspecified; I12.0 Hypertensive chronic kidney disease with stage 5 chronic kidney disease or end stage renal disease; N18.6 End stage renal disease; Z94.0 Kidney transplant status; Z79.899 Other long term (current) drug therapy | CPT/HCPCS: 46600; 99202 ==

== ENCOUNTER 2023-07-19 09:01 | Outpatient (AMB) | payer MEDICARE, SELFPAY ==
[2023-07-19 09:08] VITALS: BP 121/60; PULSE 77; BMI 26.3
--- NOTE | 2023-07-19 09:08 | A.OFFVIS_ITS ---
Intake Vital Signs 07/19/23 09:08 Height 5 ft 6 in Weight 163 lb 2.273 oz BMI 26.3 BP 121/60 Blood Pressure Location Rt brachial Position Sitting Pulse 77 Pulse Source Pulse Oximeter Intake Visit Reasons: 4 Week FU Abdominal Distension Intake Note: Pt presents to the office today for a 4 week follow up for abdominal distention. Pt states he is feeling good. Pt states he is feeling much better after his hospital visit. Pt denies any NVD. Allergies Penicillins [PENICILLINS] Allergy (Unknown, Verified 07/19/23 09:09) UNKNOWN rosuvastatin [From Crestor] Allergy (Verified 07/19/23 09:09) Muscle Pain atorvastatin [From Lipitor] Adverse Reaction (Verified 07/19/23 09:09) Muscle Pain HPI HPI Comments History of Present Illness Details This is a 70-year-old gentleman with past medical history of chronic kidney disease status post kidney transplant 2020 on immunosuppression, remote hx of HCV s/p SVR in , type 2 diabetes, gout, Jehova's witness, who presents to the office for follow up of abdominal pain, distention and nausea. Initial visit 02/06/23: Patient presents in the office with his daughter. States that for the past 6 months, he has been experiencing postprandial fullness and nausea. Occurs with any type of food he eats, even water. Describes a sensation of feeling full, and bloated. Wonders if he has fluid around his belly . No changes in appetite, but does report early satiety. No unintentional weight loss. No regurgitation, dysphagia or vomiting associated with the nausea. Initially was attributed to Sensipar, however this by decreasing the dose to half of what he used to take, is not notice any changes in his symptoms. History of cholecystectomy in his 20s. Last colonoscopy was in 2020, at [facility], prior to his renal transplant and reportedly normal. Was given a 10 year interval. No history of peptic ulcer disease. Does not take any NSAIDs. Former smoker. No family history of stomach or colon cancer. 02/16/23 EGD: * Irregular Z line (biopsy) * Hiatal hernia * Inlet patch * Normal stomach (biopsy) * Duodenal polyps (biopsy) * Enlarged major papilla (biopsy) Path: A.? Duodenum, biopsy:? Duodenal mucosa with preserved villi and no specific change.? B.? Duodenum, enlarged papilla, biopsy:? Duodenal mucosa with preserved villi and no specific change; no adenomatous dysplasia or carcinoma identified. C.? Duodenum, polyps:? Duodenal mucosa with polypoid gastric heterotopia; negative for adenomatous dysplasia.? D.? Stomach, random, biopsy:? Gastric antral and body mucosa with mild reactive changes and focal minimal chronic inactive inflammation; negative for H pylori, intestinal metaplasia and dysplasia. E.? Gastroesophageal junction, biopsy:? Squamocolumnar mucosa with marked hyperplastic degenerative changes and mild chronic active inflammation; negative for intestinal metaplasia and dysplasia.? 03/01/23: Today, reports persistent abd discomfort with nausea and decreased appetite. Has not started PPI therapy yet as he would like to run it by his Virtual Assistant. No changes in BM, diarrhea or blood in stool. EGD and path results reviewed with the pt. Labs also reviewed - pertinent for resolved HBV status. HCV s/p SVR. Scheduled for upper GI series for early March. 04/19/23: UGIS reviewed: consistent with mild reflux. Started omeprazole almost 10 days ago and does notice improvement in abd discomfort and nausea however main complaint remains bloating elyssa postprandially. Not associated with change in bowel movement or appetite. 05/08/23: Pt requested to be sooner due to worsenign abd distention leading to reduced appetite and stamina. Does not think rifaximin helped. Looks sigificantly distended today compared to last visit. No fevers, chills, change in urination or BMs. Had renal bx done earlier this week. To recall US Abd 02/2023 without significant fluid. 06/19/23: Had two admissions April ([facility]) and May ([facility] [place]) - had significant hypervolumia. 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 Diuretics now: Torsemide 60 BID Spironolactone 25 once daily 06/19/23: Reports significant decrease in weight since starting this regimen of almost 30- 40 lbs since April with resultant improvement in shortness of breath, fatigue, abdominal distention and appetite. Imaging from [facility] and [facility] [place] [facility] reviewed - no free fluid/ascitic fluid noted. Suspect most of the abd distention was likely due to gut and abd wall edema. More recently has also been experiencing significant perianal pain and discomfort- seen by Dr Elizondo, possibly has anal fissure and symptomatic hemorrhoids. Pt has not been able to take topical lidocaine or hydrocort due to very high out of pocket cost. 07/19/23: Doing well. Abd distention and pain resolved since starting diuretics as well as revision of the fistula. Appetite is back to baseline and has gained most of his weight back. Labs reviewed. [facility] Medical History Anal fissure Anemia BPH (benign prostatic hyperplasia) Cervical spondylosis Hepatitis C virus infection cured after antiviral drug therapy HTN (hypertension) Hypercholesterolemia Kidney failure Obesity (BMI 30-39.9) Pulmonary nodule, left Right patella fracture Screening for prostate cancer Surgical History Fistula of artery History of cholecystectomy History of colonoscopy History of esophagogastroduodenoscopy (EGD) History of renal transplant Family History Father No problems noted. Mother No problems noted. Brother No problems noted. Brother No problems noted. Social History Household Members: Spouse Housing: House Do you presently have visiting nurse or other home services: No Alcohol intake: former Patient Tobacco Use Status: Former Tobacco user Tobacco use type: Cigarette e-Cigarette/Vaping Use: Never Used Second Hand Smoke Exposure: No Advance Directives Date on File: 02/04/21 service: No Current occupational status: retired Cognitive needs: No Hearing needs: No Vision needs: Yes Review of Systems Const All systems reviewed & are unremarkable except as noted in HPI and below Physical Exam Vital Signs: BMI result Body Mass Index 26.3 Gen appear: No acute distress, well nourished HEENT: no icterus, no cervical lymphadenopathy Chest: No overt resp distress CVS: S1/S2, regular Abd: soft, non distended, pannus edema resolved Psych: Stable affect, answering questions appropriately Neuro: A/Ox3 noted to move all extremities spontaneously Ext: peripheral edema + Assessment & Plan Assessment & Plan (1) Abdominal pain: Code(s): R10.9 - Unspecified abdominal pain (2) Bloating: Code(s): R14.0 - Abdominal distension (gaseous) (3) Rectal pain: Code(s): K62.89 - Other specified diseases of anus and rectum (4) Rectal bleed: Code(s): K62.5 - Hemorrhage of anus and rectum (5) Hepatitis B core antibody positive: Code(s): R76.8 - Other specified abnormal immunological findings in serum Plan 1. 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 Now resolved. 2. Anal fissure/hemorrhoids FOBT was positive. This was done in May when he was having issues with anal fissure/hemorrhoids. Likely represents detection of blood from this as high quality colo from 2020 was normal and repeat was recommended in 10 years. 2. Resolved HBV status: Completed 6m of entecavir post transplant. Intermediate risk for reactivation as hes on post-transplant immunosuppression. - Repeat HBV labs due in Oct 2023. Reminder placed. Follow up in 6 months. Orders: Orders Ferritin 10/30/23 R76.8 - Other specified abnormal immunological findings in serum Liver Panel 10/30/23 R76.8 - Other specified abnormal immunological findings in serum Hepatitis B Viral DNA Qn 10/30/23 R76.8 - Other specified abnormal immunological findings in serum Coding Level of Care Code Est Pt Level 4 (23361) Diagnoses Abdominal pain R10.9 Bloating R14.0 Rectal pain K62.89 Rectal bleed K62.5 Hepatitis B core antibody positive R76.8
== END 2023-07-19 09:28 | disposition home or self-care (01) ==
PROVIDERS: PCP Internal Medicine; Visit Provider Internal Medicine
DX: R10.9 Unspecified abdominal pain (principal); R14.0 Abdominal distension (gaseous); K62.89 Other specified diseases of anus and rectum; K62.5 Hemorrhage of anus and rectum; R76.8 Other specified abnormal immunological findings in serum
CPT/HCPCS: 99214

== ENCOUNTER → 2023-07-19 09:01 | Outpatient (BNVA) | payer MEDICARE, SELFPAY | PROVIDERS: PCP Internal Medicine; Visit Provider Internal Medicine | DX: R10.9 Unspecified abdominal pain (principal); R14.0 Abdominal distension (gaseous); K62.89 Other specified diseases of anus and rectum; K62.5 Hemorrhage of anus and rectum; R76.8 Other specified abnormal immunological findings in serum | CPT/HCPCS: 99212 ==

== ENCOUNTER 2023-08-08 10:42 | Outpatient (AMB) | payer MEDICARE, SELFPAY ==
--- NOTE | 2023-08-08 10:48 | MHC.OFFVIS ---
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 The CPAP compliance and therapy response (05/06/23-08/03/23) reviewed. He sleeps well, about 7-8 hours with CPAP. He also takes a nap every day for an half hour. He is on APAP [id number]. The usage days 42% and average usage hours 7 hours 30 min. The mean pressure is 9.1, max pressure was 11.8 and AHI was 1.5/hr. Pt was hospitalized twice for water retention and shingles and could not use his CPAP. Pt states that his memory is not great, keep forgetting things, repeating questions over and over again. He can't remember family member's phone number. He is on donepezil 5 mg, started in 2020. He lives his , and his takes care of bills. Pt's daughter visit every day and help, too. He drives, cooks and can do ADLs independently. [facility] Medical History Anal fissure Anemia BPH (benign prostatic hyperplasia) Cervical spondylosis Hepatitis C virus infection cured after antiviral drug therapy HTN (hypertension) Hypercholesterolemia Kidney failure Obesity (BMI 30-39.9) Pulmonary nodule, left Right patella fracture Screening for prostate cancer Surgical History Fistula of artery History of cholecystectomy History of colonoscopy History of esophagogastroduodenoscopy (EGD) History of renal transplant Family History Father No problems noted. Mother No problems noted. Brother No problems noted. Brother No problems noted. Social History (Updated 08/08/23 @ 10:57 by Tamika Mesa CMA) Household Members: Spouse Housing: House Do you presently have visiting nurse or other home services: No Alcohol intake: former Patient Tobacco Use Status: Former Tobacco user Tobacco use type: Cigarette e-Cigarette/Vaping Use: Never Used Second Hand Smoke Exposure: No Advance Directives Date on File: 02/04/21 service: No Current occupational status: retired Cognitive needs: No Hearing needs: No Vision needs: Yes Review of Systems Const All systems reviewed & are unremarkable except as noted in HPI and below ENT Reports Normal hearing present Neuro Reports Normal hearing present Physical Exam Vital Signs: Last Vital Signs Pulse 83 08/08/23 10:57 BP 120/70 08/08/23 10:57 Pulse Ox 97 08/08/23 10:57 Oxygen Delivery Method Room Air 08/08/23 10:57 Const General: cooperative Nutritional Appearance: obese Orientation/consciousness: patient oriented x3 Neck Neck: Yes full ROM and Yes supple Resp Effort & Inspection: normal respiratory effort and able to speak in complete sentences Neuro General: patient oriented x3 and moves all extremities Cranial nerves: Yes Bilaterally intact EOM present, Yes Normal facial strength present, Yes Midline tongue present, Yes Symmetric palate elevation present, Yes Normal hearing present, Yes Ability to bilaterally rotate head present and Yes Ability to bilaterally elevate shoulders present Cognition (Neuro): normal cognition Motor exam (neuro): 5/5 motor strength present throughout, Pronator motor function not present and no tremor noted Psych Appearance: grossly normal Mental Status: mental status grossly normal Speech and movement: Normal speech and movement present Assessment & Plan Assessment & Plan (1) Obstructive sleep apnea (adult) (pediatric): Code(s): G47.33 - Obstructive sleep apnea (adult) (pediatric) (2) Dementia: Code(s): F03.90 - Unspecified dementia, unspecified severity, without behavioral disturbance, psychotic disturbance, mood disturbance, and anxiety Plan Advised patient to continue to use APAP [id number] as patient experiences good clinical effects. Stressed compliance, use CPAP nightly and more than 4 hours. Increase Donepezil 10 mg qHS. Advised patient to daily gentle exercise, 30 min walking daily. Manage BP and BS. Medications: New donepezil 10 mg PO BEDTIME 90 days 90 tabs 0RF Discontinued donepezil (Aricept) Discontinued Reason: Doctor's Order 5 mg PO BEDTIME 90 days 90 tabs 2RF Coding Level of Care Code Est Pt Level 4 (11947) Diagnoses Obstructive sleep apnea (adult) (pediatric) G47.33 Dementia F03.90
[2023-08-08 10:57] VITALS: BP 120/70; PULSE 83; O2SAT 97
== END 2023-08-08 11:15 | disposition home or self-care (01) ==
PROVIDERS: Visit Provider Nurse Practitioner Family
DX: G47.33 Obstructive sleep apnea (adult) (pediatric) (principal); F03.90 Unspecified dementia, unspecified severity, without behavioral disturbance, psychotic disturbance, mood disturbance, and anxiety
CPT/HCPCS: 99214

== ENCOUNTER → 2023-08-08 10:42 | Outpatient (BNVA) | payer MEDICARE, SELFPAY | PROVIDERS: Visit Provider Nurse Practitioner Family | DX: G47.33 Obstructive sleep apnea (adult) (pediatric) (principal); F03.90 Unspecified dementia, unspecified severity, without behavioral disturbance, psychotic disturbance, mood disturbance, and anxiety; Z94.0 Kidney transplant status; Z99.89 Dependence on other enabling machines and devices | CPT/HCPCS: 99212 ==

== ENCOUNTER 2023-09-19 08:37 | Outpatient (AMB) | payer MEDICARE, SELFPAY ==
[2023-09-19 08:42] VITALS: BP 138/68; PULSE 76; O2SAT 98; BMI 27.3
--- NOTE | 2023-09-19 08:42 | A.OFFPC_ITS ---
Vital Signs 09/19/23 08:42 Height 5 ft 6 in Weight 169 lb BMI 27.3 BP 138/68 Blood Pressure Location Rt brachial Position Sitting Pulse 76 Pulse Source Pulse Oximeter Pulse Oximetry (%) 98 Oxygen Delivery Method Room Air Intake Visit Reasons: DM , renal transplant Allergies Penicillins [PENICILLINS] Allergy (Unknown, Verified 09/19/23 08:43) UNKNOWN rosuvastatin [From Crestor] Allergy (Verified 09/19/23 08:43) Muscle Pain atorvastatin [From Lipitor] Adverse Reaction (Verified 09/19/23 08:43) Muscle Pain Tobacco use date assessed: 01/11/23 Fall risk assessment: No Falls in past year Last assessed Fall Risk: 09/19/23 Dental Screening Dental Screen Date: 09/19/23 Did you have a dental visit in the last 12 months?: Yes Did you have a dental problem in the last 6 months where you did not have access to dental care?: No Was dental information given to patient?: Patient has dentist HPI DM , renal transplant HPI Details 73-year-old overweight male with control led diabetes mellitus chronic kidney disease patient is a renal transplant recipient obstructive sleep apnea hypercholesterolemia hypertension coming in for follow-up. Last seen in May 2023. Patient is up-to-date with colonoscopy 2022. Patient is being followed up by Neurology for the obstructive sleep apnea CPAP use and 42% compliance reports to have cognitive impairment on donepezil. Had some abdominal pain and seen gastroenterology did find out that patient had some congestive heart failure diuresed in feeling. Patient also has hepatitis B treated but the risk of post immunosuppression reactivation. June 2023 hospital admission for for in the setting of acute on chronic kidney disease stage for severe tricuspid regurgitation RV dysfunction had echocardiogram at that time 45-50% ejection fraction patient had also varicella infection in the right gluteal area [facility] Medical History Anal fissure Anemia BPH (benign prostatic hyperplasia) Cervical spondylosis Hepatitis C virus infection cured after antiviral drug therapy HTN (hypertension) Hypercholesterolemia Kidney failure Obesity (BMI 30-39.9) Pulmonary nodule, left Right patella fracture Screening for prostate cancer Surgical History Fistula of artery History of cholecystectomy History of colonoscopy History of esophagogastroduodenoscopy (EGD) History of renal transplant Family History Father No problems noted. Mother No problems noted. Brother No problems noted. Brother No problems noted. Social History (Updated 08/08/23 @ 10:57 by Tamika Mesa CMA) Household Members: Spouse Housing: House Do you presently have visiting nurse or other home services: No Alcohol intake: former Patient Tobacco Use Status: Former Tobacco user Tobacco use type: Cigarette e-Cigarette/Vaping Use: Never Used Second Hand Smoke Exposure: No Advance Directives Date on File: 02/04/21 service: No Current occupational status: retired Cognitive needs: No Hearing needs: No Vision needs: Yes Questionnaire PHQ-9 Over the last 2 weeks, how often have you been bothered by any of the following problems? 1. Little interest or pleasure in doing things: more than half the days 2. Feeling down, depressed, or hopeless: not at all 3. Trouble falling or staying asleep, or sleeping too much: not at all 4. Feeling tired or having little energy: several days 5. Poor appetite or overeating: more than half the days 6. Feeling bad about yourself - or that you are a failure or have let yourself or your family down: not at all 7. Trouble concentrating on things, such as reading the newspaper or watching television: several days 8. Moving or speaking so slowly that other people could have noticed. Or the opposite - being so fidgety or restless that you have been moving around a lot more than usual: not at all 9. Thoughts that you would be better off or of hurting yourself in some way: not at all Total score: 6 Depression Screening Interpretation: Positive Depression Screening Done: Yes Source: Developed by Drs. Giuliano العلي, Nguyen Bañuelos, Tristan Perales and colleagues, with an educational gabby from [employer]. Thrive Questionnaire Date Thrive assessed: 01/11/23 AUDIT C Alcohol Use Questionnaire (AUDIT-C) 1. How often do you have a drink containing alcohol?: Monthly or less 2. How many drinks containing alcohol do you have on a typical day when you are drinking?: 1 or 2 3. How often do you have six or more drinks on one occasion?: Never Total Score: 1 LESA-7 AMB Questionnaire LESA-7 Date LESA - 7 assessed: 01/11/23 Source: Developed by Drs. Giuliano العلي, Nguyen Bañuelos, Tristan Perales and colleagues, with an educational gabby from [employer]. Physical exam (Primary Care) Vital Signs: Last Vital Signs Pulse 76 09/19/23 08:42 BP 138/68 09/19/23 08:42 Pulse Ox 98 09/19/23 08:42 Oxygen Delivery Method Room Air 09/19/23 08:42 BMI result Body Mass Index 27.3 Tobacco/Smoking Status: Tobacco use Status Tobacco use date assessed 01/11/23 09/19/23 08:44 Patient Tobacco Use Status Former Tobacco user 09/19/23 08:44 Tobacco use type Cigarette 09/19/23 08:44 e-Cigarette/Vaping Use Never Used 09/19/23 08:44 PHQ-9: PHQ-9 Score PHQ-9: Total score 6 09/19/23 09:13 Depression Screening Interpretation: Positive Thrive Assessment: Date of Thrive Assessment Date Thrive assessed 01/11/23 09/19/23 08:44 Const General: alert; No acute distress Eyes Conjunctivae: conjunctivae normal Resp Auscultation: clear to auscultation bilaterally Cardio Rate: regular rate Rhythm: regular rhythm GI Other: Lamination of the abdomen has gallbladder scar, right lower quadrant fullness with renal transplant is. But soft and nontender no rebound no guarding Extrem General: Yes normal to inspection and No edema Office Procedures Flu Questionnaire Does the patient have a severe egg allergy?: No Does the patient have severe life threatening allergies?: No Does the patient have a fever or illness today?: No Has the patient ever had Guillain-[place] Syndrome?: No Has the patient ever had any past reaction to a flu shot?: No Results AMB Hemoglobin A1c AMB Hemoglobin A1c 4.9 % Last Edit by Delores Rahman CMA on 09/19/23 09 :00 Immunizations flu vacc [id number] 6mos up(PF) 60 mcg(15 mcgx4)/0.5 mL IM syringe Performing Provider: Jonatan Anthony MD Performing Location: [facility] Administered by: Delores Rahman CMA on 09/19/23 08:55 Dose Route Admin Location Dispensed Lot Number Expiration Date NDC [employer] 0.5 mL IM Right Deltoid 0.5 mL [id number] 05/19/24 70175-610-19 [employer] VIS Given Date VIS Provided VIS Publication Date 09/19/23 Single Vaccine 21 Eligibility Eligibility Date Funding Source Not VFC Eligible 09/19/23 Private Results Reviewed Results Reviewed: Laboratory Last Values Hgb A1c (Clinic) 4.9 % (4.0-6.0) 09/19/23 08:44 Assessment and Plan Assessment & Plan (1) Type 2 diabetes mellitus with hyperglycemia: Comment: [facility] Code(s): E11.65 - Type 2 diabetes mellitus with hyperglycemia Qualifiers: Diabetes mellitus intermediate designer insulin use: without intermediate designer use Qualified Code(s): E11.65 - Type 2 diabetes mellitus with hyperglycemia Plan: Decrease the amount of carbohydrate intake, pasta, bread, rice and potatoes are all sugar and that is aside from all the sweet stuff, remember that fruits are good but they are Sweet also. Hemoglobin A1c goal of less than 7.0 patient is on Jardiance 10 mg once a day glipizide 5 mg once a day (2) CKD (chronic kidney disease) stage 4, GFR 15-29 ml/min: Code(s): N18.4 - Chronic kidney disease, stage 4 (severe) Plan: Patient continues to follow-up with Nephrology (3) Renal transplant recipient: Comment: [facility] renal transplant right iliac fossa September 2021 Code(s): Z94.0 - Kidney transplant status Plan: Follows up with Nephrology on my count of in all late (4) Hypercholesterolemia: Code(s): E78.00 - Pure hypercholesterolemia, unspecified Plan: Avoid fried foods, chicken skin, eggs, butter margarine, pastries and meat. Be it pork or beef they have a lot of cholesterol LDL goal of less than 100 (5) HTN (hypertension): Code(s): I10 - Essential (primary) hypertension Qualifiers: Hypertension type: essential hypertension Qualified Code(s): I10 - Essential (primary) hypertension Plan: Continue with blood pressure medication. Decrease salt intake and exercise patient on nifedipine 30 mg once a day carvedilol 25 mg twice a day (6) Anemia: Code(s): D64.9 - Anemia, unspecified Qualifiers: Anemia type: due to chronic kidney disease Chronic kidney disease stage: on chronic dialysis Qualified Code(s): N18.6 - End stage renal disease; D63.1 - Anemia in chronic kidney disease; Z99.2 - Dependence on renal dialysis Plan: Continue to monitor blood count. Has chronic kidney disease (7) Right heart failure: Code(s): I50.810 - Right heart failure, unspecified Plan: Continue with diuresis and spironolactone Orders: Orders Comprehensive Met. Panel Today E11.65 - Type 2 diabetes mellitus with hyperglycemia Free T4 (Free Thyroxine) Today E11.65 - Type 2 diabetes mellitus with hyperglycemia Thyroid Stimulating Hormone Today E11.65 - Type 2 diabetes mellitus with hyperglycemia Ferritin Today E11.65 - Type 2 diabetes mellitus with hyperglycemia Vitamin B12 and Folate Today E11.65 - Type 2 diabetes mellitus with hyperglycemia Phosphorus Today N18.6 - End stage renal disease, Z99.2 - Dependence on renal dialysis AMB Hemoglobin A1c Today Z13.9 - Encounter for screening, unspecified Influenza [id number] Immunization Today Z23 - Encounter for immunization Complete Blood Count Auto Diff Today E11.65 - Type 2 diabetes mellitus with hyperglycemia Lipid Panel Today E11.65 - Type 2 diabetes mellitus with hyperglycemia, E78.00 - Pure hypercholesterolemia, unspecified Vitamin D 25-OH Total Today N18.6 - End stage renal disease, Z99.2 - Dependence on renal dialysis Magnesium Today N18.6 - End stage renal disease, Z99.2 - Dependence on renal dialysis B Type Natriuretic Peptide Today N18.6 - End stage renal disease, Z99.2 - Dependence on renal dialysis Medications: Discontinued nitroglycerin 0.4%(w/w) (Rectiv) Discontinued Reason: Duplicate 1 inch DE BID 30 grams 0RF Coding Level of Care Code Est Pt Level 4 (61330) Diagnoses Type 2 diabetes mellitus with hyperglycemia, without long-term current use of insulin E11.65 Diabetes mellitus penitentiary insulin use: without penitentiary use CKD (chronic kidney disease) stage 4, GFR 15-29 ml/min N18.4 Renal transplant recipient Z94.0 Hypercholesterolemia E78.00 Essential hypertension I10 Hypertension type: essential hypertension Anemia due to chronic kidney disease, on chronic dialysis N18.6; D63.1; Z99.2 Anemia type: due to chronic kidney disease Chronic kidney disease stage: on chronic dialysis Right heart failure I50.810 Additional Codes PHQ-9 - 86086 - PHQ-9 Billing: ([id number])
== END 2023-09-19 09:29 | disposition home or self-care (01) ==
PROVIDERS: PCP Internal Medicine; Visit Provider Internal Medicine
DX: Z23 Encounter for immunization (principal); E11.22 Type 2 diabetes mellitus with diabetic chronic kidney disease; I12.0 Hypertensive chronic kidney disease with stage 5 chronic kidney disease or end stage renal disease; N18.6 End stage renal disease; Z94.0 Kidney transplant status; Z99.2 Dependence on renal dialysis
CPT/HCPCS: 83036; 90471; 90686; 99214

== ENCOUNTER 2023-10-16 09:38 | Outpatient (AMB) | payer MEDICARE, SELFPAY ==
[2023-10-16 11:55] VITALS: BP 120/78; PULSE 73; TEMP 37.1; O2SAT 97; BMI 28.2
--- NOTE | 2023-10-16 11:55 | AM.OFFWIN_ITS ---
Intake Vital Signs 10/16/23 11:55 Height 5 ft 6 in Weight 175 lb BMI 28.2 BP 120/78 Blood Pressure Location Rt brachial Position Sitting Pulse 73 Pulse Source Pulse Oximeter Temp 98.8 F Temp Source Temporal Artery Scan Pulse Oximetry (%) 97 Oxygen Delivery Method Room Air Intake Visit Reasons: EP LT ear ?Infection Intake Note: pt is here today for possible ear infection in left ear. jaw and throat hurts Patient Tobacco Use Status: Former Tobacco user Allergies Penicillins [PENICILLINS] Allergy (Unknown, Verified 10/16/23 12:17) UNKNOWN rosuvastatin [From Crestor] Allergy (Verified 10/16/23 12:17) Muscle Pain atorvastatin [From Lipitor] Adverse Reaction (Verified 10/16/23 12:17) Muscle Pain Medication List - Last Reconciled 10/16/23 by Nick Mac MD allopurinol 100 mg PO DAILY blood sugar diagnostic (FreeStyle Lite Strips) As directed blood-glucose meter (FreeStyle Lite Meter kit) As directed carvedilol 25 mg PO BID cinacalcet 30 mg PO DAILY docusate sodium 100 mg PO BID donepezil 10 mg PO BEDTIME 90 days doxazosin 2 mg PO BEDTIME empagliflozin (Jardiance) 10 mg PO DAILY folic acid 1 mg PO DAILY gabapentin 300 mg PO DAILY hydrocortisone acetate (Anucort-HC) 25 mg ND BID PRN lancets (FreeStyle Lancets) As directed lidocaine 5% 1 appl See Protocol topical Q6H PRN multivitamin with minerals 1 tab PO DAILY mycophenolate sodium 360 mg PO BID moomwasc-unzqdwoqo-AP 3.5-10,000-1 mg/mL-unit/mL-% 4 drps otic (ears) Q8H nifedipine ER 30 mg PO DAILY oxycodone-acetaminophen 5-325 mg (Percocet) 1 tab PO .at bedtime PRN spironolactone 25 mg PO DAILY torsemide 60 mg PO BID Do you need a note to return to daycare/school/sports/work: No HPI EP LT ear ?Infection HPI Details [age] male presents to the office for a sick visit. Patient is complaining of pain in the left ear. History of kidney transplant[facility] Medical History Anal fissure Anemia BPH (benign prostatic hyperplasia) Cervical spondylosis Hepatitis C virus infection cured after antiviral drug therapy HTN (hypertension) Hypercholesterolemia Kidney failure Obesity (BMI 30-39.9) Pulmonary nodule, left Right patella fracture Screening for prostate cancer Surgical History Fistula of artery History of cholecystectomy History of colonoscopy History of esophagogastroduodenoscopy (EGD) History of renal transplant Family History Father No problems noted. Mother No problems noted. Brother No problems noted. Brother No problems noted. (Updated 08/08/23 @ 10:57 by Tamika Mesa CMA) Household Members: Spouse Housing: House Do you presently have visiting nurse or other home services: No Alcohol intake: former Patient Tobacco Use Status: Former Tobacco user Tobacco use type: Cigarette e-Cigarette/Vaping Use: Never Used Second Hand Smoke Exposure: No Advance Directives Date on File: 02/04/21 service: No Current occupational status: retired Cognitive needs: No Hearing needs: No Vision needs: Yes Physical Exam Vital Signs: Last Vital Signs Temp 98.8 F 10/16/23 11:55 Pulse 73 10/16/23 11:55 BP 120/78 10/16/23 11:55 Pulse Ox 97 10/16/23 11:55 Oxygen Delivery Method Room Air 10/16/23 11:55 BMI result Body Mass Index 28.2 HEENT Other: Left ear: External ear canal is congested. Assessment & Plan Assessment & Plan (1) Otitis externa of both ears: Code(s): H60.93 - Unspecified otitis externa, bilateral Plan: Ear drops called in. If symptoms not better to follow-up here. Medications: New zvdgdmwa-gvngonwpz-KE 3.5-10,000-1 mg/mL-unit/mL-% 4 drps otic (ears) Q8H 10 mL 0RF Coding Level of Care Code Est Pt Level 3 (88654) Diagnoses Otitis externa of both ears H60.93
== END 2023-10-16 12:34 | disposition home or self-care (01) ==
PROVIDERS: PCP Internal Medicine; Visit Provider Internal Medicine
DX: H60.93 Unspecified otitis externa, bilateral (principal)
CPT/HCPCS: 99213

== ENCOUNTER 2023-11-07 08:35 | Outpatient (REF) | payer MEDICARE, SELFPAY ==
[2023-11-07 09:18] LABS: Alanine Aminotransferase 25 U/L (0-40); Albumin Level 3.9 g/dL (3.5-5.0); Alkaline Phosphatase 115 U/L (39-117); Aspartate Amino Transferase 25 U/L (5-37); Bilirubin Direct 0.1 mg/dL (0.0-0.5); Bilirubin Total 0.4 mg/dL (0.0-1.0); Total Protein 6.6 g/dL (6.5-8.0)
[2023-11-07 09:35] LABS: Ferritin 955 ng/mL (20-250)
[2023-11-09 14:58] LABS: Hepatitis B Viral DNA Qn - cp 1.68 Log IU/mL (NOT DETECTED); Hepatitis B Viral DNA Qn-IU/mL 48 IU/mL (NOT DETECTED)
== END 2023-11-07 08:36 | disposition home or self-care (01) ==
LOC: HO.LAB 08:35
PROVIDERS: PCP Internal Medicine; Visit Provider Internal Medicine
DX: R76.8 Other specified abnormal immunological findings in serum (principal)
CPT/HCPCS: 36415; 80076; 82728; 87517

== ENCOUNTER 2023-12-08 10:53 | Outpatient (AMB) | payer MEDICARE, SELFPAY ==
--- NOTE | 2023-12-08 11:07 | A.OFFVIS_ITS ---
Intake Vital Signs 12/08/23 11:16 Height 5 ft 6 in Weight 173 lb 8 oz BMI 28.0 BP 124/60 Blood Pressure Location Rt brachial Position Sitting Pulse 65 Pulse Source Pulse Oximeter Pulse Oximetry (%) 98 Oxygen Delivery Method Room Air Intake Visit Reasons: 6 mo f/u for YANETH-Confirmed Intake Note: Patient presents for six month F/U for YANETH. when using CPAP machine face black /blue coloring. he doesnt put it tight and feels like is cutting cerculation. Allergies Penicillins [PENICILLINS] Allergy (Unknown, Verified 12/08/23 11:15) UNKNOWN rosuvastatin [From Crestor] Allergy (Verified 12/08/23 11:15) Muscle Pain atorvastatin [From Lipitor] Adverse Reaction (Verified 12/08/23 11:15) Muscle Pain HPI HPI Comments History of Present Illness Details 73 y/o male patient hx of kidney transpl ant, CVA and dementia presents for follow up of YANETH. The CPAP compliance and therapy response (09/07/23-12/05/23) reviewed. He sleeps well, about 7-8 hours with CPAP. He is on APAP [id number]. The usage days 96% and average usage hours 7 hours. The max pressure is 12.3, AHI was 2.4/hr. Pt states that his memory is stable. Donepezil increased to 10 mg at the last visit, denies side effects. He lives his , and his takes care of bills. Pt's daughter visit every day and help, too. He drives, cooks and can do ADLs independently. [facility] Medical History Anal fissure Anemia BPH (benign prostatic hyperplasia) Cervical spondylosis Hepatitis C virus infection cured after antiviral drug therapy HTN (hypertension) Hypercholesterolemia Kidney failure Obesity (BMI 30-39.9) Pulmonary nodule, left Right patella fracture Screening for prostate cancer Surgical History History of esophagogastroduodenoscopy (EGD) History of renal transplant History of colonoscopy Fistula of artery History of cholecystectomy Family History Father No problems noted. Mother No problems noted. Brother No problems noted. Brother No problems noted. Social History Household Members: Spouse Housing: House Do you presently have visiting nurse or other home services: No Alcohol intake: former Patient Tobacco Use Status: Former Tobacco user Tobacco use type: Cigarette e-Cigarette/Vaping Use: Never Used Second Hand Smoke Exposure: No Advance Directives Date on File: 02/04/21 service: No Current occupational status: retired Cognitive needs: No Hearing needs: No Vision needs: Yes Review of Systems Const All systems reviewed & are unremarkable except as noted in HPI and below ENT Reports Normal hearing present Neuro Reports Normal hearing present Physical Exam Vital Signs: Last Vital Signs Pulse 65 12/08/23 11:16 BP 124/60 12/08/23 11:16 Pulse Ox 98 12/08/23 11:16 Oxygen Delivery Method Room Air 12/08/23 11:16 BMI result Body Mass Index 28.0 Const General: cooperative Nutritional Appearance: obese Orientation/consciousness: patient oriented x3 Neck Neck: Yes full ROM and Yes supple Resp Effort & Inspection: normal respiratory effort and able to speak in complete sentences Neuro General: patient oriented x3 and moves all extremities Cranial nerves: Yes Bilaterally intact EOM present, Yes Normal facial strength present, Yes Midline tongue present, Yes Symmetric palate elevation present, Yes Normal hearing present, Yes Ability to bilaterally rotate head present and Yes Ability to bilaterally elevate shoulders present Cognition (Neuro): normal cognition Motor exam (neuro): 5/5 motor strength present throughout, Pronator motor function not present and no tremor noted Psych Appearance: grossly normal Mental Status: mental status grossly normal Speech and movement: Normal speech and movement present Assessment & Plan Assessment & Plan (1) Obstructive sleep apnea (adult) (pediatric): Code(s): G47.33 - Obstructive sleep apnea (adult) (pediatric) (2) Dementia: Code(s): F03.90 - Unspecified dementia, unspecified severity, without behavioral disturbance, psychotic disturbance, mood disturbance, and anxiety Plan Advised patient to continue to use APAP [id number] as patient experiences good clinical effects. Stressed compliance, use CPAP nightly and more than 4 hours. Continue to take Donepezil 10 mg qHS. Advised patient to daily gentle exercise, 30 min walking daily. Manage BP and BS. Coding Level of Care Code Est Pt Level 4 (89862) Diagnoses Obstructive sleep apnea (adult) (pediatric) G47.33 Dementia F03.90
[2023-12-08 11:16] VITALS: BP 124/60; PULSE 65; O2SAT 98; BMI 28.0
== END 2023-12-08 11:36 | disposition home or self-care (01) ==
PROVIDERS: PCP Internal Medicine; Visit Provider Nurse Practitioner Family
DX: G47.33 Obstructive sleep apnea (adult) (pediatric) (principal); F03.90 Unspecified dementia, unspecified severity, without behavioral disturbance, psychotic disturbance, mood disturbance, and anxiety
CPT/HCPCS: 99214

== ENCOUNTER → 2023-12-08 10:53 | Outpatient (BNVA) | payer MEDICARE, SELFPAY | PROVIDERS: PCP Internal Medicine; Visit Provider Nurse Practitioner Family | DX: G47.33 Obstructive sleep apnea (adult) (pediatric) (principal); F03.90 Unspecified dementia, unspecified severity, without behavioral disturbance, psychotic disturbance, mood disturbance, and anxiety | CPT/HCPCS: 99212 ==

== ENCOUNTER 2024-02-05 10:07 | Outpatient (REF) | payer MEDICARE, SELFPAY ==
[2024-02-05 11:42] LABS: Hematocrit 40.1 % (42.0-52.0); Hemoglobin 12.5 g/dl (14.0-18.0); Mean Corpuscular HGB Conc 31.2 g/dl (31.0-36.0); Mean Corpuscular Hemoglobin 29.1 pg (27.0-33.0); Mean Corpuscular Volume 93.5 fL (80.0-98.0); Mean Platelet Volume 9.4 fL (9.4-12.4); Platelet Count 275 X10*3/uL (160-400); Prothrombin Time 11.6 SEC (11.1-13.3); Red Blood Count 4.29 X10*6/uL (4.60-5.80); Red Cell Distribution Width 13.8 % (11.0-16.0); White Blood Count 5.7 X10*3/uL (4.8-10.8)
[2024-02-05 12:12] LABS: Alanine Aminotransferase 22 U/L (0-40); Albumin Level 3.9 g/dL (3.5-5.0); Alkaline Phosphatase 125 U/L (39-117); Aspartate Amino Transferase 26 U/L (5-37); Bilirubin Direct 0.1 mg/dL (0.0-0.5); Bilirubin Total 0.3 mg/dL (0.0-1.0)
[2024-02-05 12:36] LABS: HBS Num1 > 1000.00 mIU/mL (0-7.99); HBsAGNum1 0.52 S/CO (0.00-0.99); Hepatitis B Surface Antigen Negative (Negative); ~Hepatitis B Surface Antibody REACTIVE (Nonreactive)
[2024-02-07 12:54] LABS: Hepatitis B Viral DNA Qn - cp 1.18 Log IU/mL (NOT DETECTED); Hepatitis B Viral DNA Qn-IU/mL 15 IU/mL (NOT DETECTED)
[2024-02-07 22:04] LABS: Hepatitis BE Antigen NON-REACTIVE (NON-REACTIVE)
[2024-02-07 23:50] LABS: Hepatitis BE Antibody NON-REACTIVE (NON-REACTIVE)
[2024-02-12 14:34] LABS: FIB-ALT 21 U/L (9-46); FIB-Alpha-2-Macroglobulin 321 mg/dL (106-279); FIB-Apolipoprotein A1 153 mg/dL (94-176); FIB-GGT 80 U/L (3-70); FIB-Haptoglobin 226 mg/dL (43-212); FIB-Total Bilirubin 0.3 mg/dL (0.2-1.2); Liver Fibrosis Score 0.49; Liver Fibrosis Stage F2; Nec Inflam Act Grade A0; Nec Inflam Act Score 0.11
[2024-02-17 20:23] LABS: Hepatitis Delta Antibody NEGATIVE
== END 2024-02-05 10:08 | disposition home or self-care (01) ==
LOC: HO.LAB 10:07
PROVIDERS: PCP Internal Medicine; Visit Provider Internal Medicine
DX: R76.8 Other specified abnormal immunological findings in serum (principal)
CPT/HCPCS: 36415; 80076; 81596; 85027; 85610; 86692; 86706; 86707; 87340; 87350; 87517

== ENCOUNTER 2024-02-07 08:44 | Outpatient (AMB) | payer MEDICARE, SELFPAY ==
--- NOTE | 2024-02-07 08:46 | A.OFFVIS_ITS ---
Intake Vital Signs 02/07/24 08:55 Height 5 ft 6 in Weight 174 lb 2.643 oz BMI 28.1 BP 141/61 H Blood Pressure Location Rt brachial Position Sitting Pulse 68 Intake Visit Reasons: FOLLOWUP Intake Note: Maninder presents presents in the office as a follow up. CC: Patient had his labs done. He states that he said sometimes he feels bloated when he eats otherwise he feels good. Allergies Penicillins [PENICILLINS] Allergy (Unknown, Verified 02/07/24 08:55) UNKNOWN rosuvastatin [From Crestor] Allergy (Verified 02/07/24 08:55) Muscle Pain atorvastatin [From Lipitor] Adverse Reaction (Verified 02/07/24 08:55) Muscle Pain HPI HPI Comments History of Present Illness Details This is a 70-year-old gentleman with past medical history of chronic kidney disease status post kidney transplant 2020 on immunosuppression, remote hx of HCV s/p SVR in , type 2 diabetes, gout, Jehova's witness, who presents to the office for follow up Initial visit 02/06/23: Patient presents in the office with his daughter. States that for the past 6 months, he has been experiencing postprandial fullness and nausea. Occurs with any type of food he eats, even water. Describes a sensation of feeling full, and bloated. Wonders if he has fluid around his belly . No changes in appetite, but does report early satiety. No unintentional weight loss. No regurgitation, dysphagia or vomiting associated with the nausea. Initially was attributed to Sensipar, however this by decreasing the dose to half of what he used to take, is not notice any changes in his symptoms. History of cholecystectomy in his 20s. Last colonoscopy was in 2020, at [facility], prior to his renal transplant and reportedly normal. Was given a 10 year interval. No history of peptic ulcer disease. Does not take any NSAIDs. Former smoker. No family history of stomach or colon cancer. 02/16/23 EGD: * Irregular Z line (biopsy) * Hiatal hernia * Inlet patch * Normal stomach (biopsy) * Duodenal polyps (biopsy) * Enlarged major papilla (biopsy) Path: A.? Duodenum, biopsy:? Duodenal mucosa with preserved villi and no specific change.? B.? Duodenum, enlarged papilla, biopsy:? Duodenal mucosa with preserved villi and no specific change; no adenomatous dysplasia or carcinoma identified. C.? Duodenum, polyps:? Duodenal mucosa with polypoid gastric heterotopia; negative for adenomatous dysplasia.? D.? Stomach, random, biopsy:? Gastric antral and body mucosa with mild reactive changes and focal minimal chronic inactive inflammation; negative for H pylori, intestinal metaplasia and dysplasia. E.? Gastroesophageal junction, biopsy:? Squamocolumnar mucosa with marked hyperplastic degenerative changes and mild chronic active inflammation; negative for intestinal metaplasia and dysplasia.? 03/01/23: Today, reports persistent abd discomfort with nausea and decreased appetite. Has not started PPI therapy yet as he would like to run it by his Forest Worker. No changes in BM, diarrhea or blood in stool. EGD and path results reviewed with the pt. Labs also reviewed - pertinent for resolved HBV status. HCV s/p SVR. Scheduled for upper GI series for early March. 04/19/23: UGIS reviewed: consistent with mild reflux. Started omeprazole almost 10 days ago and does notice improvement in abd discomfort and nausea however main complaint remains bloating elyssa postprandially. Not associated with change in bowel movement or appetite. 05/08/23: Pt requested to be sooner due to worsenign abd distention leading to reduced appetite and stamina. Does not think rifaximin helped. Looks sigificantly distended today compared to last visit. No fevers, chills, change in urination or BMs. Had renal bx done earlier this week. To recall US Abd 02/2023 without significant fluid. 06/19/23: Had two admissions April ([facility]) and May ([facility]) - had significant hypervolumia. 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 Will be seeing Cardiology and t ransplant psych sales specialist in upcoming weeks for further eval. Diuretics now: Torsemide 60 BID Spironolactone 25 once daily 06/19/23: Reports significant decrease in weight since starting this regimen of almost 30- 40 lbs since April with resultant improvement in shortness of breath, fatigue, abdominal distention and appetite. Imaging from [facility] and [facility] reviewed - no free fluid/ascitic fluid noted. Suspect most of the abd distention was likely due to gut and abd wall edema. More recently has also been experiencing significant perianal pain and discomfort- seen by Dr Elizondo, possibly has anal fissure and symptomatic hemorrhoids. Pt has not been able to take topical lidocaine or hydrocort due to very high out of pocket cost. 07/19/23: Doing well. Abd distention and pain resolved since starting diuretics as well as revision of the fistula. Appetite is back to baseline and has gained most of his weight back. Labs reviewed. 02/07/24: REports only issue is abd discomfort when he is constipated. Assoc with bloating. Has to strain often and worries about making his hernia worse due to this. Otherwise no RUQ pain, N,V. No unintentional weight changes. [facility] Medical History Anal fissure Screening for prostate cancer Hypercholesterolemia Hepatitis C virus infection cured after antiviral drug therapy Obesity (BMI 30-39.9) BPH (benign prostatic hyperplasia) Pulmonary nodule, left Right patella fracture Cervical spondylosis Anemia HTN (hypertension) Kidney failure Surgical History History of esophagogastroduodenoscopy (EGD) History of renal transplant History of colonoscopy Fistula of artery History of cholecystectomy Family History Father No problems noted. Mother No problems noted. Brother No problems noted. Brother No problems noted. Social History Household Members: Spouse Housing: House Do you presently have visiting nurse or other home services: No Alcohol intake: former Patient Tobacco Use Status: Former Tobacco user Tobacco use type: Cigarette e-Cigarette/Vaping Use: Never Used Second Hand Smoke Exposure: No Advance Directives Date on File: 02/04/21 service: No Current occupational status: retired Cognitive needs: No Hearing needs: No Vision needs: Yes Review of Systems Const All systems reviewed & are unremarkable except as noted in HPI and below Physical Exam Vital Signs: Last Vital Signs Pulse 68 02/07/24 08:55 BP 141/61 H 02/07/24 08:55 BMI result Body Mass Index 28.1 NAD No overt resp distress abd nondistended A/Ox3, normal gait Assessment & Plan Assessment & Plan (1) Abdominal pain: Code(s): R10.9 - Unspecified abdominal pain (2) Bloating: Code(s): R14.0 - Abdominal distension (gaseous) (3) Hepatitis B core antibody positive: Code(s): R76.8 - Other specified abnormal immunological findings in serum Plan 1. Abd bloating and constipation Did not tolerate citrucel - made blaoting worse. Will trial another soluble fiber such as benefiber. Plan: - Cont senna in the morning - Add daily benefiber - Add daily miralax 2. Resolved HBV status: Noted to have extremely low level viremia on labs in Oct. Repeat labs from earlier this week still have not resulted but HBsAg neg. Plan: - Follow results from 02/04 - If cont to be neg or only with low level viremia, no change in management - However if viral levels up without elevated LFTs will monitor q3m - If viral level up with elevated LFTs may need to go back on entecavir Follow up 6 months Patient Instructions: For constipation: - Recommend benefiber - may help with bloating - Add miralax 17g mixed in 8oz of water daily - skip if having loose stools Coding Level of Care Code Est Pt Level 3 (53049) Diagnoses Abdominal pain R10.9 Bloating R14.0 Hepatitis B core antibody positive R76.8
[2024-02-07 08:55] VITALS: BP 141/61; PULSE 68; BMI 28.1
== END 2024-02-07 09:27 | disposition home or self-care (01) ==
PROVIDERS: PCP Internal Medicine; Visit Provider Internal Medicine
DX: R10.9 Unspecified abdominal pain (principal); R14.0 Abdominal distension (gaseous); R76.8 Other specified abnormal immunological findings in serum
CPT/HCPCS: 99213

== ENCOUNTER → 2024-02-07 08:44 | Outpatient (BNVA) | payer MEDICARE, SELFPAY | PROVIDERS: PCP Internal Medicine; Visit Provider Internal Medicine | DX: R10.9 Unspecified abdominal pain (principal); R14.0 Abdominal distension (gaseous); R76.8 Other specified abnormal immunological findings in serum | CPT/HCPCS: 99212 ==

== ENCOUNTER 2024-03-18 07:44 | Outpatient (REF) | payer MEDICARE, SELFPAY ==
[2024-03-18 08:15] LABS: MANUAL DIFF FLAG NO
[2024-03-18 08:56] LABS: Eosinophils Absolute Auto 0.1 X10*3/uL (0.0-0.4); Eosinophils Percent Auto 2.4 % (0-4); Hematocrit 39.9 % (42.0-52.0); Hemoglobin 12.5 g/dl (14.0-18.0); Imm Gran Abs Auto 0.17 X10*3/uL (0.00-0.03); Imm Gran Pct Auto 4.1 % (0.0-0.4); Lymphocytes Absolute Auto 1.2 X10*3/uL (1.2-4.9); Lymphocytes Percent Auto 29.4 % (20-40); Mean Corpuscular HGB Conc 31.3 g/dl (31.0-36.0); Mean Corpuscular Hemoglobin 29.4 pg (27.0-33.0); Mean Corpuscular Volume 93.9 fL (80.0-98.0); Mean Platelet Volume 9.4 fL (9.4-12.4); Monocytes Absolute Auto 0.5 X10*3/uL (0.1-1.2); Monocytes Percent Auto 13.1 % (2-11); Neutrophils Absolute Auto 2.1 x10*3/uL (2.0-8.3); Platelet Count 208 X10*3/uL (160-400); Red Blood Count 4.25 X10*6/uL (4.60-5.80); Red Cell Distribution Width 14.1 % (11.0-16.0); White Blood Count 4.1 X10*3/uL (4.8-10.8)
[2024-03-18 10:22] LABS: Alanine Aminotransferase 25 U/L (0-40); Albumin Level 4.2 g/dL (3.5-5.0); Alkaline Phosphatase 103 U/L (39-117); Anion Gap 11 (12-20); Aspartate Amino Transferase 25 U/L (5-37); Bilirubin Total 0.4 mg/dL (0.0-1.0); Blood Urea Nitrogen 40 mg/dL (9-16); Calcium 10.8 mg/dL (8.4-10.2); Carbon Dioxide 24 mmol/L (22-29); Chloride 111 mmol/L (96-108); Cholesterol 251 mg/dL (<200); Estimated Glomerular Filt Rate 35; Glucose Random 115 mg/dL (60-115); HDL Cholesterol 47 mg/dL (>40); LDL Cholesterol Calculated 169 mg/dL (<100); Phosphorus 2.9 mg/dL (2.7-4.5); Sodium 141 mmol/L (135-145); Triglycerides 177 mg/dL (<150)
[2024-03-18 10:30] LABS: B Type Natriuretic Peptide 157 pg/mL (<100)
[2024-03-18 10:40] LABS: Folate 14.5 ng/mL (> or = 4.0); Vitamin B12 695 pg/mL (200-900)
[2024-03-18 10:43] LABS: Ferritin 1013 ng/mL (20-250); Free T4 (Free Thyroxine) 0.96 ng/dL (0.71-1.85); Thyroid Stimulating Hormone 1.34 uIU/mL (0.32-4.0); Vitamin D 25-OH Total 30.8 ng/mL (>30)
== END 2024-03-18 07:45 | disposition home or self-care (01) ==
LOC: HO.LAB 07:44
PROVIDERS: PCP Internal Medicine; Visit Provider Internal Medicine
DX: E11.65 Type 2 diabetes mellitus with hyperglycemia (principal); E11.22 Type 2 diabetes mellitus with diabetic chronic kidney disease; E78.00 Pure hypercholesterolemia, unspecified; N18.6 End stage renal disease; Z99.2 Dependence on renal dialysis
CPT/HCPCS: 36415; 80053; 80061; 82306; 82607; 82728; 82746; 83735; 83880; 84100; 84439; 84443; 85025

== ENCOUNTER 2024-03-29 13:13 | Outpatient (AMB) | payer MEDICARE, SELFPAY ==
--- NOTE | 2024-03-29 13:19 | A.OFFPC_ITS ---
Vital Signs 03/29/24 13:29 Height 5 ft 6 in Weight 178 lb 6 oz BMI 28.8 BP 122/60 Blood Pressure Location Rt brachial Position Sitting Pulse 74 Pulse Source Pulse Oximeter Pulse Oximetry (%) 98 Oxygen Delivery Method Room Air Intake Visit Reasons: renal tranplant, DM Skoog Operator Required: No Accompanied by: Self / Same As Patient Allergies Penicillins [PENICILLINS] Allergy (Unknown, Verified 03/29/24 13:41) UNKNOWN rosuvastatin [From Crestor] Allergy (Verified 03/29/24 13:41) Muscle Pain atorvastatin [From Lipitor] Adverse Reaction (Verified 03/29/24 13:41) Muscle Pain Medication List - Last Reconciled 03/29/24 by Jonatan Anthony MD allopurinol 100 mg PO DAILY blood sugar diagnostic (FreeStyle Lite Strips) As directed blood-glucose meter (FreeStyle Lite Meter kit) As directed carvedilol 25 mg PO BID cinacalcet 30 mg PO DAILY docusate sodium 100 mg PO BID donepezil 10 mg PO BEDTIME 90 days doxazosin 2 mg PO BEDTIME doxycycline hyclate 100 mg PO DAILY empagliflozin (Jardiance) 10 mg PO DAILY folic acid 1 mg PO DAILY gabapentin 300 mg PO DAILY hydrocortisone acetate (Anucort-HC) 25 mg MT BID PRN lancets (FreeStyle Lancets) As directed lidocaine 5% 1 appl See Protocol topical Q6H PRN multivitamin with minerals 1 tab PO DAILY mycophenolate sodium 360 mg PO BID osykplus-dtrpqvuox-CI 3.5-10,000-1 mg/mL-unit/mL-% 4 drps otic (ears) Q8H nifedipine ER 30 mg PO DAILY oxycodone-acetaminophen 5-325 mg (Percocet) 1 tab PO .at bedtime PRN spironolactone 25 mg PO DAILY torsemide 60 mg PO BID Tobacco use date assessed: 03/29/24 Fall risk assessment: No Falls in past year Last assessed Fall Risk: 03/29/24 Dental Screening Dental Screen Date: 09/19/23 HPI renal tranplant, DM HPI Details 73-year-old overweight male with control led diabetes mellitus chronic kidney disease hypercholesterolemia hypertension chronic anemia right heart failure coming in for follow-up. August 2023 last seen patient is a renal transplant recipient. Colonoscopy up-to-date January 2023 Dr. Z. patient follows up with Nephrology chronic kidney disease stage 4 of his renal allograft baseline creatinine of 1.8 to on Sensipar 30 mg twice a day every other day recently treated for urinary tract infection with ciprofloxacin on belatacept and mycophenolate. Patient also follows up with Gastroenterology has constipation occasionally on can not take Citrucel trial of Benefiber on senna hepatitis-B status post treatment as for obstructive sleep apnea follows up with Neurology. Patient has sore throat and has been having this for about for 5 days no fever but does have pain and denies having allergy problem. [facility] Medical History Anal fissure Screening for prostate cancer Hypercholesterolemia Hepatitis C virus infection cured after antiviral drug therapy Obesity (BMI 30-39.9) BPH (benign prostatic hyperplasia) Pulmonary nodule, left Right patella fracture Cervical spondylosis Anemia HTN (hypertension) Kidney failure Surgical History History of esophagogastroduodenoscopy (EGD) History of renal transplant History of colonoscopy Fistula of artery History of cholecystectomy Family History Father No problems noted. Mother No problems noted. Brother No problems noted. Brother No problems noted. Social History Household Members: Spouse Housing: House Do you presently have visiting nurse or other home services: No Alcohol intake: former Patient Tobacco Use Status: Former Tobacco user Tobacco use type: Cigarette e-Cigarette/Vaping Use: Never Used Second Hand Smoke Exposure: No Advance Directives Date on File: 02/04/21 service: No Current occupational status: retired Cognitive needs: No Hearing needs: No Vision needs: Yes Questionnaire PHQ-9 Over the last 2 weeks, how often have you been bothered by any of the following problems? 1. Little interest or pleasure in doing things: not at all 2. Feeling down, depressed, or hopeless: not at all 3. Trouble falling or staying asleep, or sleeping too much: not at all 4. Feeling tired or having little energy: not at all 5. Poor appetite or overeating: not at all 6. Feeling bad about yourself - or that you are a failure or have let yourself or your family down: not at all 7. Trouble concentrating on things, such as reading the newspaper or watching television: not at all 8. Moving or speaking so slowly that other people could have noticed. Or the opposite - being so fidgety or restless that you have been moving around a lot more than usual: not at all 9. Thoughts that you would be better off or of hurting yourself in some way: not at all Total score: 0 Depression Screening Interpretation: Negative Depression Screening Done: Yes 26334 - PHQ-9 Billing: Yes Source: Developed by Drs. Giuliano العلي, Nguyen Bañuelos, Tristan Perales and colleagues, with an educational gabby from [employer]. Thrive Questionnaire Date Thrive assessed: 03/29/24 I am a: Patient What is your living situation today?: I have a steady place to live Within the past 12 months, did the food you bought not last and you didn't have the money to get more?: Never true Within the past 12 months, did you worry whether your food would run out before you got money to buy more?: Never true Do you have trouble paying for medicines?: No Do you have trouble getting transportation to medical appointments?: No Do you have trouble paying your heating and electricity bill?: No Do you have trouble taking care of your child, family member or friend?: No Do you have trouble with day-to-day activities such as bathing, preparing meals, shopping, managing finances, etc.?: No Are you currently unemployed and looking for a job?: No Are you interested in more education?: No Please select the resources that you would like help with: None Currently or been in a relationship where the following occur: no concerns reported THRIVE Score: 0 AUDIT C Alcohol Use Questionnaire (AUDIT-C) 1. How often do you have a drink containing alcohol?: Never 3. How often do you have six or more drinks on one occasion?: Never Total Score: 0 LESA-7 AMB Questionnaire LESA-7 Date LESA - 7 assessed: 03/29/24 Feeling nervous, anxious, or on edge: 0 = Not at all Not being able to stop or control worryin = Not at all Worrying too much about different things: 0 = Not at all Trouble relaxin = Not at all Being so restless that it is hard to sit still: 0 = Not at all Becoming easily annoyed or irritable: 0 = Not at all Feeling afraid as if something awful might happen: 0 = Not at all Total LESA-7 score (0-4 normal; 5-9 mild; 10-14 moderate; 15-21 severe): 0 Source: Developed by Drs. Giuliano العلي, Nguyen Bañuelos, Tristan Perales and colleagues, with an educational gabby from [employer]. LESA-7 Assessment Billing LESA-7 Assessment Tool: LESA-7 Assessment 97518 Physical exam (Primary Care) Vital Signs: Last Vital Signs Pulse 74 03/29/24 13:29 BP 122/60 03/29/24 13:29 Pulse Ox 98 03/29/24 13:29 Oxygen Delivery Method Room Air 03/29/24 13:29 BMI result Body Mass Index 28.8 Tobacco/Smoking Status: Tobacco use Status Tobacco use date assessed 03/29/24 03/29/24 13:32 Patient Tobacco Use Status Former Tobacco user 03/29/24 13:19 Tobacco use type Cigarette 03/29/24 13:19 e-Cigarette/Vaping Use Never Used 03/29/24 13:19 PHQ-9: PHQ-9 Score PHQ-9: Total score 0 03/29/24 14:01 Depression Screening Interpretation: Negative Thrive Assessment: Date of Thrive Assessment Date Thrive assessed 03/29/24 03/29/24 13:43 Currently or been in a relationship where the following occur: no concerns reported Const General: alert; No acute distress Eyes Conjunctivae: conjunctivae normal Resp Auscultation: clear to auscultation bilaterally Cardio Rate: regular rate Rhythm: regular rhythm GI Inspection: Yes normal to inspection Extrem General: Yes normal to inspection and No edema Results AMB Hemoglobin A1c AMB Hemoglobin A1c 5.1 % Last Edit by RUPERT Anguiano on 03/29/24 14:02 Results Reviewed Results Reviewed: Laboratory Last Values Hgb A1c (Clinic) 5.1 % (4.0-6.0) 03/29/24 13:33 Assessment and Plan Assessment & Plan (1) Type 2 diabetes mellitus with hyperglycemia: Comment: [facility] Code(s): E11.65 - Type 2 diabetes mellitus with hyperglycemia Qualifiers: Diabetes mellitus halfway insulin use: without termite control servicer use Qualified Code(s): E11.65 - Type 2 diabetes mellitus with hyperglycemia Plan: Decrease the amount of carbohydrate intake, pasta, bread, rice and potatoes are all sugar and that is aside from all the sweet stuff, remember that fruits are good but they are Sweet also. Hemoglobin A1c goal of less than 7.0. Patient is at goal although does have anemia. Jardiance 10 mg once a day (2) CKD (chronic kidney disease) stage 4, GFR 15-29 ml/min: Code(s): N18.4 - Chronic kidney disease, stage 4 (severe) Plan: Keep well hydrated avoid NSAIDs patient follows up with Nephrology (3) Renal transplant recipient: Comment: [facility] renal transplant right iliac fossa September 2021 Code(s): Z94.0 - Kidney transplant status Plan: Continue to follow-up with Nephrology (4) Dementia: Code(s): F03.90 - Unspecified dementia, unspecified severity, without behavioral disturbance, psychotic disturbance, mood disturbance, and anxiety Plan: Continue on donepezil (5) HTN (hypertension): Code(s): I10 - Essential (primary) hypertension Qualifiers: Hypertension type: essential hypertension Qualified Code(s): I10 - Essential (primary) hypertension Plan: Continue with blood pressure medication. Decrease salt intake and exercise on spironolactone nifedipine carvedilol 25 mg twice a day (6) Hypercholesterolemia: Code(s): E78.00 - Pure hypercholesterolemia, unspecified Plan: Avoid fried foods, chicken skin, eggs, butter margarine, pastries and meat. Be it pork or beef they have a lot of cholesterol LDL goal of less than 70 and triglyceride of less than 150 but patient can not tolerate statins. (7) Obesity (BMI 30-39.9): Code(s): E66.9 - Obesity, unspecified Plan: Diet and exercise (8) Anemia: Code(s): D64.9 - Anemia, unspecified Qualifiers: Anemia type: due to chronic kidney disease Chronic kidney disease stage: on chronic dialysis Qualified Code(s): N18.6 - End stage renal disease; D63.1 - Anemia in chronic kidney disease; Z99.2 - Dependence on renal dialysis Plan: Chronic and stable (9) Sore throat: Code(s): J02.9 - Acute pharyngitis, unspecified Plan: will treat with antibiotic. Patient is a renal transplant patient with mycophenolate. Orders: Orders AMB Hemoglobin A1c Today E11.65 - Type 2 diabetes mellitus with hyperglycemia Medications: New doxycycline hyclate 100 mg PO DAILY 14 caps 0RF J02.9 - Acute pharyngitis, unspecified Coding Level of Care Code Est Pt Level 4 (68375) Diagnoses Type 2 diabetes mellitus with hyperglycemia, without long-term current use of insulin E11.65 Diabetes mellitus termite control servicer insulin use: without halfway use CKD (chronic kidney disease) stage 4, GFR 15-29 ml/min N18.4 Renal transplant recipient Z94.0 Dementia F03.90 Essential hypertension I10 Hypertension type: essential hypertension Hypercholesterolemia E78.00 Obesity (BMI 30-39.9) E66.9 Anemia due to chronic kidney disease, on chronic dialysis N18.6; D63.1; Z99.2 Anemia type: due to chronic kidney disease Chronic kidney disease stage: on chronic dialysis Sore throat J02.9 Additional Codes LESA-7 Assessment Billing - LESA-7 Assessment Tool: LESA-7 Assessment 70388 ([id number])
[2024-03-29 13:29] VITALS: BP 122/60; PULSE 74; O2SAT 98; BMI 28.8
== END 2024-03-29 14:17 | disposition home or self-care (01) ==
LOC: HO.HMGH 13:13
PROVIDERS: PCP Internal Medicine; Visit Provider Internal Medicine
DX: E11.65 Type 2 diabetes mellitus with hyperglycemia (principal); N18.4 Chronic kidney disease, stage 4 (severe); N18.6 End stage renal disease; Z99.2 Dependence on renal dialysis; Z94.0 Kidney transplant status; F03.90 Unspecified dementia, unspecified severity, without behavioral disturbance, psychotic disturbance, mood disturbance, and anxiety; I12.9 Hypertensive chronic kidney disease with stage 1 through stage 4 chronic kidney disease, or unspecified chronic kidney disease; E78.00 Pure hypercholesterolemia, unspecified; E66.9 Obesity, unspecified; D63.1 Anemia in chronic kidney disease; J02.9 Acute pharyngitis, unspecified
CPT/HCPCS: 83036; 99214

== ENCOUNTER 2024-08-07 08:52 | Outpatient (REF) | payer MEDICARE, SELFPAY ==
[2024-08-07 12:12] LABS: HBS Num1 > 1000.00 mIU/mL (0-7.99); HBsAGNum1 0.28 S/CO (0.00-0.99); Hepatitis B Surface Antigen Negative (Negative); ~Hepatitis B Surface Antibody REACTIVE (Nonreactive)
[2024-08-08 12:19] LABS: Hepatitis B Viral DNA Qn - cp 1.54 Log IU/mL (NOT DETECTED); Hepatitis B Viral DNA Qn-IU/mL 35 IU/mL (NOT DETECTED)
== END 2024-08-07 08:53 | disposition home or self-care (01) ==
LOC: HO.LAB 08:52
PROVIDERS: PCP Internal Medicine; Visit Provider Internal Medicine
DX: R76.8 Other specified abnormal immunological findings in serum (principal); B18.1 Chronic viral hepatitis B without delta-agent; Z12.11 Encounter for screening for malignant neoplasm of colon; Z12.12 Encounter for screening for malignant neoplasm of rectum
CPT/HCPCS: 36415; 85610; 86706; 87340; 87517; 99212

== ENCOUNTER 2024-08-07 08:52 | Outpatient (AMB) | payer MEDICARE, SELFPAY ==
--- NOTE | 2024-08-07 08:57 | A.OFFVIS_ITS ---
Vital Signs 08/07/24 09:00 Height 5 ft 6 in Weight 174 lb 2.643 oz BMI 28.1 BP 152/63 H Blood Pressure Location Rt brachial Position Sitting Pulse 65 Intake Visit Reasons: 6 month follow up Hep B Intake Note: Maninder presents in the office as a 6 month follow up. CC: No concerns at this time. Teacher Cclc Required: No Allergies Penicillins [PENICILLINS] Allergy (Unknown, Verified 08/07/24 09:02) UNKNOWN rosuvastatin [From Crestor] Allergy (Verified 08/07/24 09:02) Muscle Pain atorvastatin [From Lipitor] Adverse Reaction (Verified 08/07/24 09:02) Muscle Pain HPI Comments Details: This is a 70-year-old gentleman with past medical history of chronic kidney disease status post kidney transplant 2020 on immunosuppression, remote hx of HCV s/p SVR in , type 2 diabetes, gout, Jehova's witness, who presents to the office for follow up Initial visit 02/06/23: Patient presents in the office with his daughter. States that for the past 6 months, he has been experiencing postprandial fullness and nausea. Occurs with any type of food he eats, even water. Describes a sensation of feeling full, and bloated. Wonders if he has fluid around his belly . No changes in appetite, but does report early satiety. No unintentional weight loss. No regurgitation, dysphagia or vomiting associated with the nausea. Initially was attributed to Sensipar, however this by decreasing the dose to half of what he used to take, is not notice any changes in his symptoms. History of cholecystectomy in his 20s. Last colonoscopy was in 2020, at [facility], prior to his renal transplant and reportedly normal. Was given a 10 year interval. No history of peptic ulcer disease. Does not take any NSAIDs. Former smoker. No family history of stomach or colon cancer. 02/16/23 EGD: * Irregular Z line (biopsy) * Hiatal hernia * Inlet patch * Normal stomach (biopsy) * Duodenal polyps (biopsy) * Enlarged major papilla (biopsy) Path: A.? Duodenum, biopsy:? Duodenal mucosa with preserved villi and no specific change.? B.? Duodenum, enlarged papilla, biopsy:? Duodenal mucosa with preserved villi and no specific change; no adenomatous dysplasia or carcinoma identified. C.? Duodenum, polyps:? Duodenal mucosa with polypoid gastric heterotopia; negative for adenomatous dysplasia.? D.? Stomach, random, biopsy:? Gastric antral and body mucosa with mild reactive changes and focal minimal chronic inactive inflammation; negative for H pylori, intestinal metaplasia and dysplasia. E.? Gastroesophageal junction, biopsy:? Squamocolumnar mucosa with marked hyperplastic degenerative changes and mild chronic active inflammation; negative for intestinal metaplasia and dysplasia.? 03/01/23: Today, reports persistent abd discomfort with nausea and decreased appetite. Has not started PPI therapy yet as he would like to run it by his Stitch Burnisher. No changes in BM, diarrhea or blood in stool. EGD and path results reviewed with the pt. Labs also reviewed - pertinent for resolved HBV status. HCV s/p SVR. Scheduled for upper GI series for early March. 04/19/23: UGIS reviewed: consistent with mild reflux. Started omeprazole almost 10 days ago and does notice improvement in abd discomfort and nausea however main complaint remains bloating elyssa postprandially. Not associated with change in bowel movement or appetite. 05/08/23: Pt requested to be sooner due to worsenign abd distention leading to reduced appetite and stamina. Does not think rifaximin helped. Looks sigificantly distended today compared to last visit. No fevers, chills, change in urination or BMs. Had renal bx done earlier this week. To recall US Abd 02/2023 without significant fluid. 06/19/23: Had two admissions April ([facility] [place] - had significant hypervolumia. 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 Will be seeing Cardiology and transplant fairing worker in upcoming weeks for further eval. Diuretics now: Torsemide 60 BID Spironolactone 25 once daily 06/19/23: Reports significant decrease in weight since starting this regimen of almost 30- 40 lbs since April with resultant improvement in shortness of breath, fatigue, abdominal distention and appetite. Imaging from [facility] and [facility] reviewed - no free fluid/ascitic fluid noted. Suspect most of the abd distention was likely due to gut and abd wall edema. More recently has also been experiencing significant perianal pain and discomfort- seen by Dr Elizondo, possibly has anal fissure and symptomatic hemorrhoids. Pt has not been able to take topical lidocaine or hydrocort due to very high out of pocket cost. 07/19/23: Doing well. Abd distention and pain resolved since starting diuretics as well as revision of the fistula. Appetite is back to baseline and has gained most of his weight back. Labs reviewed. 02/07/24: REports only issue is abd discomfort when he is constipated. Assoc with bloating. Has to strain often and worries about making his hernia worse due to this. Otherwise no RUQ pain, N,V. No unintentional weight changes. 08/07/24: Doing well. No GI complaints today. Constipation resolved. Labs from 01/2024 reviewed. Of note - pt has previously reported colo at [facility] in 2020. However unable to locate records based on limited access we have. COUNTS INCLUDE 234 BEDS AT THE [facility] Medical History Anal fissure Screening for prostate cancer Hypercholesterolemia Hepatitis C virus infection cured after antiviral drug therapy Obesity (BMI 30-39.9) BPH (benign prostatic hyperplasia) Pulmonary nodule, left Right patella fracture Cervical spondylosis Anemia HTN (hypertension) Kidney failure Surgical History History of esophagogastroduodenoscopy (EGD) History of renal transplant History of colonoscopy Fistula of artery History of cholecystectomy Family History Father No problems noted. Mother No problems noted. Brother No problems noted. Brother No problems noted. Social History Household Members: Spouse Housing: House Do you presently have visiting nurse or other home services: No Alcohol intake: former Patient Tobacco Use Status: Former Tobacco user Tobacco use type: Cigarette e-Cigarette/Vaping Use: Never Used Second Hand Smoke Exposure: No Advance Directives Date on File: 02/04/21 service: No Current occupational status: retired Cognitive needs: No Hearing needs: No Vision needs: Yes Review of Systems Const All systems reviewed & are unremarkable except as noted in HPI and below Physical Exam Vital Signs: Last Vital Signs Pulse 65 08/07/24 09:00 BP 152/63 H 08/07/24 09:00 BMI result Body Mass Index 28.1 No apparent distress Nonicteric Abdomen soft, nondistended Alert and oriented x3, normal gait Assessment & Plan Assessment & Plan (1) Hepatitis B core antibody positive: Code(s): R76.8 - Other specified abnormal immunological findings in serum Category: Medical (2) Chronic hepatitis B: Code(s): B18.1 - Chronic viral hepatitis B without delta-agent Category: Medical (3) Encounter for colorectal cancer screening: Code(s): Z12.11 - Encounter for screening for malignant neoplasm of colon; Z12.12 - Encounter for screening for malignant neoplasm of rectum Category: Medical Plan 1. HBcAb + Ag negative however has extremely low level viremia noted on labs. No indication for restarting anti-viral tx at this time. Plan: - Repeat LFTs, INR and HBV labs today - US Abd to be done - Will need surveillance labs q6m - can space out if labs today and early 2024 remain unchanged. 2. CRC screening Unable to find records for colo at [facility] in 2019 or 2020. Release of records signed. Will reach out to the pt if due based on the records. Follow up 1 year Orders: Orders Hepatitis B Viral DNA Qn Today R76.8 - Other specified abnormal immunological findings in serum Prothrombin Time INR Today R76.8 - Other specified abnormal immunological findings in serum Hepatitis B Surface Antibody Today R76.8 - Other specified abnormal immunological findings in serum Hepatitis B Surface Antigen Today R76.8 - Other specified abnormal immunological findings in serum US abdomen complete Today U07.1 - COVID-19 Medications: Discontinued [id number]-AI 3.5-10,000-1 mg/mL-unit/mL-% Discontinued Reason: Patient Completed Course 4 drps otic (ears) Q8H 10 mL 0RF Coding Level of Care Code Est Pt Level 4 (48297) Diagnoses Hepatitis B core antibody positive R76.8 Chronic hepatitis B B18.1 Encounter for colorectal cancer screening Z12.11; Z12.12
[2024-08-07 09:00] VITALS: BP 152/63; PULSE 65; BMI 28.1
== END 2024-08-07 09:50 | disposition home or self-care (01) ==
PROVIDERS: PCP Internal Medicine; Visit Provider Internal Medicine
DX: R76.8 Other specified abnormal immunological findings in serum (principal); B18.1 Chronic viral hepatitis B without delta-agent; Z12.11 Encounter for screening for malignant neoplasm of colon; Z12.12 Encounter for screening for malignant neoplasm of rectum
CPT/HCPCS: 99214

== ENCOUNTER 2024-08-21 08:13 | Outpatient (REF) | payer MEDICARE, SELFPAY ==
--- NOTE | ~2024-08-21 | US_ITS ---
EXAMINATION: US ABDOMEN COMPLETE CLINICAL INFORMATION: Chronic hepatitis. COVID-19. COMPARISON: CT abdomen and pelvis 06/05/2023. X-ray KUB 06/05/2023. Ultrasound abdomen 02/21/2023. TECHNIQUE: Real-time imaging of the abdominal viscera. FINDINGS: PANCREAS: The visualized portions of the pancreas are unremarkable but a large portion of the gland is obscured by bowel gas. ABDOMINAL AORTA: The proximal, mid, and distal segments are normal in caliber. INFERIOR VENA CAVA: Visualized portions are normal. LIVER: The liver is mildly enlarged at 17.1 cm with coarse echotexture. The liver contour is normal. No focal hepatic lesion. There is no intrahepatic biliary duct dilatation seen. GALLBLADDER: Surgically absent. COMMON BILE DUCT: Normal in caliber measuring 0.5 cm in diameter. RIGHT KIDNEY: The kidney is small with cortical atrophy and increased echogenicity. No hydronephrosis. No renal calculi. Multiple benign Bosniak class I renal cysts are noted hich require no additional imaging or follow-up, similar to 06/05/2023 CT. No solid renal masses are seen.. The kidney measures 7.6 cm in maximum dimension. LEFT KIDNEY: There is increased cortical echogenicity and cortical thinning. No hydronephrosis or renal calculi. The kidney measures 12.0 cm in maximum dimension. Multiple benign Bosniak class I renal cysts are noted which require no additional imaging or follow-up similar to 06/05/2023 CT. No solid renal masses are seen. TRANSPLANT KIDNEY: Transplant kidney is present in the right iliac fossa measuring 11 cm in length and appears unremarkable. SPLEEN: Normal. The spleen measures 10.1 cm in maximum dimension. FREE FLUID: None. US/US abdomen complete IMPRESSION: 1. Mildly enlarged coarse echogenic liver. 2. Atrophic [place] kidneys with unremarkable transplant kidney. Electronically signed by: Felix Gonzales MD 10/03/2024 01:46 PM [facility]
== END 2024-08-21 08:14 | disposition home or self-care (01) ==
LOC: HO.US 08:13
PROVIDERS: PCP Internal Medicine; Visit Provider Internal Medicine
DX: U07.1 COVID-19 (principal)
CPT/HCPCS: 76700

== ENCOUNTER 2024-09-30 09:32 | Outpatient (AMB) | payer MEDICARE, SELFPAY ==
[2024-09-30 09:36] VITALS: BP 122/64; PULSE 66; O2SAT 96; BMI 28.3
--- NOTE | 2024-09-30 09:36 | A.OFFPC_ITS ---
Vital Signs 09/30/24 09:36 Height 5 ft 6 in Weight 175 lb 2 oz BMI 28.3 BP 122/64 Blood Pressure Location Rt brachial Position Sitting Pulse 66 Pulse Source Pulse Oximeter Pulse Oximetry (%) 96 Oxygen Delivery Method Room Air Intake Visit Reasons: Renal Transplant, CKD, HTN Allergies Penicillins [PENICILLINS] Allergy (Unknown, Verified 09/30/24 09:41) UNKNOWN rosuvastatin [From Crestor] Allergy (Verified 09/30/24 09:41) Muscle Pain atorvastatin [From Lipitor] Adverse Reaction (Verified 09/30/24 09:41) Muscle Pain Tobacco use date assessed: 09/30/24 Fall risk assessment: No Falls in past year Last assessed Fall Risk: 09/30/24 Dental Screening Dental Screen Date: 09/30/24 Did you have a dental visit in the last 12 months?: Yes Did you have a dental problem in the last 6 months where you did not have access to dental care?: No Was dental information given to patient?: Patient has dentist HPI Renal Transplant, CKD, HTN HPI Details 74-year-old overweight male with control led diabetes mellitus chronic kidney disease renal transplant recipient dementia hypertension hypercholesterolemia chronic anemia coming in for follow-up. Last seen in Mar 29 2024. Patient's colonoscopy last done in January 2023. Patient has been follow-up with Podiatry. Nephrology notes August 16 chronic kidney disease stage IIIB renal allograft baseline creatinine of 1.7-2 stable electrolytes has secondary hyperparathyroidism on Sensipar continuing with belatacept and mycophenolate. Patient has also seen the gastroenterology hepatitis-B remote history of hepatitis-C.. Workup being done to follow-up on low-level viremia with no indication for antiviral treatment. R ear complains of R ear pain, no discharge. scheduled to see ENT. [facility] Medical History Anal fissure Screening for prostate cancer Hypercholesterolemia Hepatitis C virus infection cured after antiviral drug therapy Obesity (BMI 30-39.9) BPH (benign prostatic hyperplasia) Pulmonary nodule, left Right patella fracture Cervical spondylosis Anemia HTN (hypertension) Kidney failure Surgical History History of esophagogastroduodenoscopy (EGD) History of renal transplant History of colonoscopy History of cholecystectomy Fistula of artery Family History Father No problems noted. Mother No problems noted. Brother No problems noted. Brother No problems noted. Social History Household Members: Spouse Housing: House Do you presently have visiting nurse or other home services: No Alcohol intake: former Patient Tobacco Use Status: Former Tobacco user Tobacco use type: Cigarette e-Cigarette/Vaping Use: Never Used Second Hand Smoke Exposure: No Advance Directives Date on File: 02/04/21 service: No Current occupational status: retired Cognitive needs: No Hearing needs: No Vision needs: Yes Questionnaire PHQ-9 Over the last 2 weeks, how often have you been bothered by any of the following problems? 1. Little interest or pleasure in doing things: not at all 2. Feeling down, depressed, or hopeless: not at all 3. Trouble falling or staying asleep, or sleeping too much: not at all 4. Feeling tired or having little energy: not at all 5. Poor appetite or overeating: not at all 6. Feeling bad about yourself - or that you are a failure or have let yourself or your family down: not at all 7. Trouble concentrating on things, such as reading the newspaper or watching television: not at all 8. Moving or speaking so slowly that other people could have noticed. Or the opposite - being so fidgety or restless that you have been moving around a lot more than usual: not at all 9. Thoughts that you would be better off or of hurting yourself in some way: not at all Total score: 0 Depression Screening Interpretation: Negative Depression Screening Done: Yes 39015 - PHQ-9 Billing: Yes Source: Developed by Drs. Giuliano العلي, Nguyen Bañuelos, Tristan Perales and colleagues, with an educational gabby from [employer]. Thrive Questionnaire Date Thrive assessed: 09/30/24 I am a: Patient What is your living situation today?: I have a steady place to live Within the past 12 months, did the food you bought not last and you didn't have the money to get more?: Never true Within the past 12 months, did you worry whether your food would run out before you got money to buy more?: Never true Do you have trouble paying for medicines?: No Do you have trouble getting transportation to medical appointments?: No Do you have trouble paying your heating and electricity bill?: No Do you have trouble taking care of your child, family member or friend?: No Do you have trouble with day-to-day activities such as bathing, preparing meals, shopping, managing finances, etc.?: No Are you currently unemployed and looking for a job?: No Are you interested in more education?: No Please select the resources that you would like help with: None THRIVE Score: 0 AUDIT C Alcohol Use Questionnaire (AUDIT-C) 1. How often do you have a drink containing alcohol?: Never 3. How often do you have six or more drinks on one occasion?: Never Total Score: 0 LESA-7 AMB Questionnaire LESA-7 Date LESA - 7 assessed: 09/30/24 Feeling nervous, anxious, or on edge: 0 = Not at all Not being able to stop or control worryin = Not at all Worrying too much about different things: 0 = Not at all Trouble relaxin = Not at all Being so restless that it is hard to sit still: 0 = Not at all Becoming easily annoyed or irritable: 0 = Not at all Feeling afraid as if something awful might happen: 0 = Not at all Total LESA-7 score (0-4 normal; 5-9 mild; 10-14 moderate; 15-21 severe): 0 Source: Developed by Drs. Giuliano العلي, Nguyen Bañuelos, Tristan Perales and colleagues, with an educational gabby from [employer]. LESA-7 Assessment Billing LESA-7 Assessment Tool: LESA-7 Assessment 69086 Physical exam (Primary Care) Vital Signs: Last Vital Signs Pulse 66 09/30/24 09:36 BP 122/64 09/30/24 09:36 Pulse Ox 96 09/30/24 09:36 Oxygen Delivery Method Room Air 09/30/24 09:36 BMI result Body Mass Index 28.3 Tobacco/Smoking Status: Tobacco use Status Tobacco use date assessed 09/30/24 09/30/24 09:43 Patient Tobacco Use Status Former Tobacco user 09/30/24 09:43 Tobacco use type Cigarette 09/30/24 09:43 e-Cigarette/Vaping Use Never Used 09/30/24 09:43 PHQ-9: PHQ-9 Score PHQ-9: Total score 0 09/30/24 09:43 Depression Screening Interpretation: Negative Thrive Assessment: Date of Thrive Assessment Date Thrive assessed 09/30/24 09/30/24 09:43 Const General: alert; No acute distress Eyes Conjunctivae: conjunctivae normal Resp Auscultation: clear to auscultation bilaterally Cardio Rate: regular rate Rhythm: regular rhythm GI Inspection: Yes normal to inspection Extrem General: Yes normal to inspection and No edema Results AMB Hemoglobin A1c AMB Hemoglobin A1c 5.7 % Last Edit by Sherice Lee CMA on 09/30/24 09:47 Results Reviewed Results Reviewed: Laboratory Last Values Hgb A1c (Clinic) 5.7 % (4.0-6.0) 09/30/24 09:44 Coding Level of Care Code Est Pt Level 4 (15575) Complex EM visit Add On G2211 Diagnoses Chronic hepatitis B B18.1 CKD (chronic kidney disease) stage 4, GFR 15-29 ml/min N18.4 Type 2 diabetes mellitus with hyperglycemia, without long-term current use of insulin E11.65 Diabetes mellitus shelter insulin use: without superintendent terminal use Renal transplant recipient Z94.0 Hypercholesterolemia E78.00 Essential hypertension I10 Hypertension type: essential hypertension Anemia due to chronic kidney disease, on chronic dialysis N18.6; D63.1; Z99.2 Anemia type: due to chronic kidney disease Chronic kidney disease stage: on chronic dialysis Obstructive sleep apnea (adult) (pediatric) G47.33 Additional Codes LESA-7 Assessment Billing - LESA-7 Assessment Tool: LESA-7 Assessment 65416 ([id number]) PHQ-9 - 31316 - PHQ-9 Billing: Yes ([id number]) Assessment & Plan Assessment & Plan (1) Chronic hepatitis B: Code(s): B18.1 - Chronic viral hepatitis B without delta-agent Category: Medical Plan: Patient is being monitored by Gastroenterology and because of the low level viremia no treatment indication. (2) CKD (chronic kidney disease) stage 4, GFR 15-29 ml/min: Code(s): N18.4 - Chronic kidney disease, stage 4 (severe) Category: Medical Plan: Continue to follow-up, avoid NSAIDs nephrology is following up. (3) Type 2 diabetes mellitus with hyperglycemia: Comment: [facility] [employer] Code(s): E11.65 - Type 2 diabetes mellitus with hyperglycemia Category: Medical Qualifiers: Diabetes mellitus superintendent terminal insulin use: without superintendent terminal use Qualified Code(s): E11.65 - Type 2 diabetes mellitus with hyperglycemia Plan: Decrease the amount of carbohydrate intake, pasta, bread, rice and potatoes are all sugar and that is aside from all the sweet stuff, remember that fruits are good but they are Sweet also. Hemoglobin A1c goal of less than 7.0 patient on Jardiance 10 mg once a day only. (4) Renal transplant recipient: Comment: [facility] renal transplant right iliac fossa September 2021 Code(s): Z94.0 - Kidney transplant status Category: Surgical Plan: Continue to follow-up with Nephrology on mycophenolate (5) Hypercholesterolemia: Code(s): E78.00 - Pure hypercholesterolemia, unspecified Category: Medical Plan: Avoid fried foods, chicken skin, eggs, butter margarine, pastries and meat. Be it pork or beef they have a lot of cholesterol patient had problems with statins and on Zetia right now LDL goal of less than 100 and triglyceride of less than 150. (6) HTN (hypertension): Code(s): I10 - Essential (primary) hypertension Category: Medical Qualifiers: Hypertension type: essential hypertension Qualified Code(s): I10 - Essential (primary) hypertension Plan: Continue with blood pressure medication. Decrease salt intake and exercise patient on carvedilol 25 mg twice a day nifedipine 30 mg once a day spironolactone and torsemide (7) Anemia: Code(s): D64.9 - Anemia, unspecified Category: Medical Qualifiers: Anemia type: due to chronic kidney disease Chronic kidney disease stage: on chronic dialysis Qualified Code(s): N18.6 - End stage renal disease; D63.1 - Anemia in chronic kidney disease; Z99.2 - Dependence on renal dialysis Plan: Continue to monitor, stable (8) Obstructive sleep apnea (adult) (pediatric): Comment: CPAP Code(s): G47.33 - Obstructive sleep apnea (adult) (pediatric) Category: Medical Plan: uses the CPAP > 4 hours per night and benefits from this. Orders: Orders AMB Hemoglobin A1c Today Z13.9 - Encounter for screening, unspecified Complete Blood Count Auto Diff Today E78.00 - Pure hypercholesterolemia, unspecified Comprehensive Met. Panel Today E78.00 - Pure hypercholesterolemia, unspecified Thyroid Stimulating Hormone Today E78.00 - Pure hypercholesterolemia, unspecified Vitamin B12 and Folate Today E78.00 - Pure hypercholesterolemia, unspecified UA w Microscopic Today E78.00 - Pure hypercholesterolemia, unspecified Free T4 (Free Thyroxine) Today E78.00 - Pure hypercholesterolemia, unspecified Lipid Panel Today E78.00 - Pure hypercholesterolemia, unspecified IRON PROFILE Today E78.00 - Pure hypercholesterolemia, unspecified Ferritin Today E78.00 - Pure hypercholesterolemia, unspecified Reticulocyte Count Today E78.00 - Pure hypercholesterolemia, unspecified
== END 2024-09-30 10:27 | disposition home or self-care (01) ==
PROVIDERS: PCP Internal Medicine; Visit Provider Internal Medicine
DX: I12.9 Hypertensive chronic kidney disease with stage 1 through stage 4 chronic kidney disease, or unspecified chronic kidney disease (principal); B18.1 Chronic viral hepatitis B without delta-agent; E11.65 Type 2 diabetes mellitus with hyperglycemia; N18.4 Chronic kidney disease, stage 4 (severe); N18.6 End stage renal disease; Z99.2 Dependence on renal dialysis; Z94.0 Kidney transplant status; E78.00 Pure hypercholesterolemia, unspecified; D63.1 Anemia in chronic kidney disease; G47.33 Obstructive sleep apnea (adult) (pediatric)

== ENCOUNTER → 2024-09-30 09:32 | Outpatient (BNVA) | payer MEDICARE, SELFPAY | PROVIDERS: PCP Internal Medicine; Visit Provider Internal Medicine | DX: B18.1 Chronic viral hepatitis B without delta-agent (principal); E11.65 Type 2 diabetes mellitus with hyperglycemia; G47.33 Obstructive sleep apnea (adult) (pediatric); E78.00 Pure hypercholesterolemia, unspecified; I12.9 Hypertensive chronic kidney disease with stage 1 through stage 4 chronic kidney disease, or unspecified chronic kidney disease; E11.22 Type 2 diabetes mellitus with diabetic chronic kidney disease; N18.4 Chronic kidney disease, stage 4 (severe); D63.1 Anemia in chronic kidney disease; Z99.2 Dependence on renal dialysis; Z94.0 Kidney transplant status | CPT/HCPCS: 83036; 96127; 99212 ==

== ENCOUNTER 2025-01-01 06:57 | Outpatient (REF) | payer MEDICARE, SELFPAY ==
--- OUTSIDE RECORDS SUMMARY | 2025-01-01 06:59 | XMS_ITS ---
Author Organization [facility] Brad latoya [place] Address [address] [place] [address] Care Team Providers Care Medical Office Secretary Name Role Phone Jonatan Anthony Primary Care Provider Nichole DwyerTaylere Unavailable [phone] Allergies Allergen (clinical drug ingredient) Drug/Non Drug Allergy documented on EMR Reaction Allergy Type Onset Date Status Penicillin Unknown Drug Allergy Active REASON FOR VISIT At Risk Footcare, Foot pain Medications Medication SIG (Take, Route, Frequency, Duration) Notes Start Date End Date Status Ammonium Lactate 12 % APPLY TO AFFECTED AREA TWICE A DAY TO DRY AREAS OF SKIN ON FEET for 30 Active Extra Depth Orthopedic Shoes (1 Pair) with Customized Heat Molded Multidensity Innersoles (3 Pair) as directed Dx: NIDDM/Polyneuropathy (E11.42), Hammertoe Foot Deformity (M20.41,M20.42), Preulcerative Skin Lesion(s) (L85.1 06/13/2024 Active Extra Depth Orthopedic Shoes (1 Pair) with Customized Heat Molded Multidensity Innersoles (3 Pair) as directed Dx: NIDDM/Polyneuropathy (E11.42), Hammertoe Foot Deformity (M20.41,M20.42), Preulcerative Skin Lesion(s) (L85.1 12/11/2023 Active Magnesium 400 MG as directed Orally Not-Taking Tamsulosin HCl 0.4 MG Oral for 30 Days Active Jardiance 10 MG TAKE 1 TAB BY MOUTH TIME EACH DAY IN THE MORNING Oral for 90 Active Cinacalcet HCl 30 MG TAKE ONE TABLET BY MOUTH ONCE DAILY Oral for 30 Active Mycophenolate Sodium 360 MG Oral for 30 Z940,Unavail able Active Gabapentin 300 MG TAKE 1 CAPSULE BY MOUTH EVERY NIGHT FOR NEUROPATHY AND INSOMNIA. Oral for 30 Active Spironolactone 25 MG TAKE 1 TABLET BY MOUTH 1 TIME EACH DAY. Oral for 90 Active Carvedilol 25 MG 1 tablet with food Orally Twice a day for 30 day(s) Active NIFEdipine ER 60 MG 1 tablet on an empty stomach Orally Once a day for 30 day(s) Active Envarsus XR 1 MG as directed Orally Active Entecavir 0.5 MG 1 tablet on an empty stomach Orally Once a day for 10 day(s) Active Extra Depth Orthopedic Shoes (1 Pair) with Customized Heat Molded Multidensity Innersoles (3 Pair) as directed Dx: NIDDM/Polyneuropathy (E11.42), Hammertoe Foot Deformity (M20.41,M20.42), Preulcerative Skin Lesion(s) (L85.1 Active Donepezil HCl 5 MG 1 tablet at bedtime Orally Once a day for 30 day(s) Active Rosuvastatin Calcium 5 MG 1 tablet Orally Once a day for 30 day(s) Active Folic Acid 1 MG 1 tablet Orally Once a day for 30 day(s) Active Doxazosin Mesylate 4 MG 1 tablet Orally Once a day for 30 day(s) Active Allopurinol 100 MG 1 tablet Orally Once a day for 30 day(s) Active Lasix 20 MG 1 tablet Orally Once a day for 30 day(s) Active Multivitamin Active Sensipar 30 MG 1 tablet with food or after a meal Orally Once a day for 30 day(s) Active glipiZIDE 5 MG 1 tablet 30 minutes before breakfast Orally Once a day for 30 day(s) Active Stool Softener 50mg 1x day, 100mg 2x day Active Social History Tobacco Use: Social History Observation Description Date Details (start date - stop date) Former Smoker NA - NA Tobacco Use/Smoking Question Answer Notes Are you a: former smoker Additional Findings: Tobacco Non-User Ex-cigaret te smoker Tobacco use other than smoking: Question Answer Notes Are you an other tobacco user? No Vital Signs Blood pressure systolic 150 mm Hg 09/19/20 24 Blood pressure diastolic 60 mm Hg 024 Height 5ft6in in 09/19/2024 Weight 177 lbs 09/19/2024 BMI 28.57 kg/m2 09/19/2024 Procedures Procedure Date Ordered Date Performed Result Body Sit e 14437-QDYLSAY NAIL, 6 OR MORE 09/19/2024 N/A 35738-GIKE SKIN LESIONS, 2 TO 4 09/19/2024 N/A Encounters Encounter Location Date Provider Diagnosis [facility] [address] [address] 09/19/2024 Leticia Dwyer Type 2 diabetes mellitus with diabetic polyneuropathy E11.42 ; Type 2 diabetes mellitus with diabetic chronic kidney disease E11.22 ; Tinea unguium B35.1 ; Pain in left foot M79.672 ; Pain in left ankle and joints of left foot M25.572 ; Bursitis of intermetatarsal bursa of left foot M77.52 ; Metatarsalgia of left foot M77.42 ; Pain in right foot M79.671 ; Pain in right ankle and joints of right foot M25.571 ; Bursitis of intermetatarsal bursa of right foot M77.51 and Metatarsalgia, right foot M77.41 Assessments Encounter Date Diagnosis (ICD Code) Assessment Notes Treatment Notes Treatment Clinical Notes Section Notes 09/19/2024 Type 2 diabetes mellitus with diabetic polyneuropathy (ICD-10 - E11.42) 09/19/2024 Type 2 diabetes mellitus with diabetic chronic kidney disease (ICD-10 - E11.22) 09/19/2024 Tinea unguium (ICD-10 - B35.1) 09/19/2024 Pain in left foot (ICD-10 - M79.672) 09/19/2024 Pain in left ankle and joints of left foot (ICD-10 - M25.572) 09/19/2024 Bursitis of intermetatarsal bursa of left foot (ICD-10 - M77.52) 09/19/2024 Metatarsalgia of left foot (ICD-10 - M77.42) 09/19/2024 Pain in right foot (ICD-10 - M79.671) 09/19/2024 Pain in right ankle and joints of right foot (ICD-10 - M25.571) 09/19/2024 Bursitis of intermetatarsal bursa of right foot (ICD-10 - M77.51) 09/19/2024 Metatarsalgia, right foot (ICD-10 - M77.41) 09/19/2024 Other Plan Of Treatment Pending Test Test Name Order Date 38635-CJTFASU NAIL, 6 OR MORE 09/19/2024 38352-BJDY SKIN LESIONS, 2 TO 4 09/19/20 24 Next Appt Details Follow Up: prn, Reason: Provider Name:Leticia Dwyer , 03/31/2025 09:30:00 AM, [address] [place], [address], Procedure Notes * Category Sub-Category Detail Notes Debride Nail 6-10 Nail debridement Nail debridem ent performed extensively to reduce/remove overall nail length and girth, subungual debris, and necrotic tissue, by manual and electrical means with use of a nail nipper and/or dremel, to more viable healthy nail plate or bed tissue 6-10. Silver nitrate used for any petechial bleeding as necessary. Patient chooses, no pharmaceutical tx (91709) Keratoma Treatment Parring or Cutting o f Benign Hyperkeratotic Lesion(s) 06491 (2-4 Lesions) - The Benign hyperkeratotic lesions, as described above were pared, and/or cut utilizing a sterile #15 blade, tissue nippers, and/or dremel Progress Notes * Maninder PACKDOB: [birth year] (74 yo M)Acc No.[id number]:09/19/2024 Progress Note Patient:?Maninder Pack Provider:?Leticia TERI Dwyer :1950???Age:74 Y???Sex:Male Sean e:09/19/2024 Address:[address] [place], [place] [id number] Pcp:Jonatan Anthony Subjective: * Chief Complaints: * ???At Risk FootcareFoot pain * HPI: ???At Risk footcare:?Pt States Last PCP Visit:?Date?02/07/2024 ???Foot Pain:?Location:??Bottom, Forefoot, B/L.?Duration:?, several days.?Onset:?overuse.?Course:?worse?.?Treatments:?rest/alter normal daily activity , rest/alter normal daily activity.? * Medical History:? * Surgical History:?kidney tra nsplant 09/30/2021gall bladder * Hospitalization/Major Diagno stic Procedure:?Denies Past Hospitalization * Family History:?Mother: dece ased, kidney/liver disease, foot problems, diagnosed with Diabetic - NIDDM, Unspecified heart disease.?Father: , diagnosed with Unspecified essential hypertension, Unspecified cerebral artery occlusion with cerebral infarction.?Siblings: , alzthimers, diagnosed with Other specified conditions influencing health status.?Spouse: alive, knee surgery, diagnosed with Other specified conditions influencing health status.? * Social History:?Tobacco Use:?Tobacco Use/Smoking?Are you a:?former smoker ?Additional Findings: Tobacco Non-User?Ex-cigarette smoker ?Tobacco use other than smoking?Are you an other tobacco user??No ???Miscellaneous:?Caffeine: yes, frequency:, 1 cups per day. ?Children: yes. ?Exercise: yes, walking. ?Marital status: . 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 * Medications:?TakingMultivita min Stool Softener , Notes: 50mg 1x day, 100mg 2x dayglipiZIDE 5 MG Tablet 1 tablet 30 minutes before breakfast Orally Once a daySensipar 30 MG Tablet 1 tablet with food or after a meal Orally Once a dayLasix 20 MG Tablet 1 tablet Orally Once a dayFolic Acid 1 MG Tablet 1 tablet Orally Once a dayRosuvastatin Calcium 5 MG Tablet 1 tablet Orally Once a dayDonepezil HCl 5 MG Tablet 1 tablet at bedtime Orally Once a dayAllopurinol 100 MG Tablet 1 tablet Orally Once a dayDoxazosin Mesylate 4 MG Tablet 1 tablet Orally Once a dayNIFEdipine ER 60 MG Tablet Extended Release 24 Hour 1 tablet on an empty stomach Orally Once a dayCarvedilol 25 MG Tablet 1 tablet with food Orally Twice a dayEntecavir 0.5 MG Tablet 1 tablet on an empty stomach Orally Once a dayEnvarsus XR 1 MG Tablet Extended Release 24 Hour as directed Orally Extra Depth Orthopedic Shoes (1 Pair) with Customized Heat Molded Multidensity Innersoles (3 Pair) as directed Dx: NIDDM/Polyneuropathy (E11.42), Hammertoe Foot Deformity (M20.41,M20.42), Preulcerative Skin Lesion(s) (L85.1Gabapentin 300 MG Capsule TAKE 1 CAPSULE BY MOUTH EVERY NIGHT FOR NEUROPATHY AND INSOMNIA. Oral Mycophenolate Sodium 360 MG Tablet Delayed Release Oral , Notes: Z940,UnavailableCinacalcet HCl 30 MG Tablet TAKE ONE TABLET BY MOUTH ONCE DAILY Oral Jardiance 10 MG Tablet TAKE 1 TAB BY MOUTH TIME EACH DAY IN THE MORNING Oral Spironolactone 25 MG Tablet TAKE 1 TABLET BY MOUTH 1 TIME EACH DAY. Oral Extra Depth Orthopedic Shoes (1 Pair) with Customized Heat Molded Multidensity Innersoles (3 Pair) as directed Dx: NIDDM/Polyneuropathy (E11.42), Hammertoe Foot Deformity (M20.41,M20.42), Preulcerative Skin Lesion(s) (L85.1Extra Depth Orthopedic Shoes (1 Pair) with Customized Heat Molded Multidensity Innersoles (3 Pair) as directed Dx: NIDDM/Polyneuropathy (E11.42), Hammertoe Foot Deformity (M20.41,M20.42), Preulcerative Skin Lesion(s) (L85.1Ammonium Lactate 12 % Cream APPLY TO AFFECTED AREA TWICE A DAY TO DRY AREAS OF SKIN ON FEET Tamsulosin HCl 0.4 MG Capsule Oral Taking Multivitamin Taking Stool Softener , Notes: 50mg 1x day, 100mg 2x dayTaking glipiZIDE 5 MG Tablet 1 tablet 30 minutes before breakfast Orally Once a dayTaking Sensipar 30 MG Tablet 1 tablet with food or after a meal Orally Once a dayTaking Lasix 20 MG Tablet 1 tablet Orally Once a dayTaking Folic Acid 1 MG Tablet 1 tablet Orally Once a dayTaking Rosuvastatin Calcium 5 MG Tablet 1 tablet Orally Once a dayTaking Donepezil HCl 5 MG Tablet 1 tablet at bedtime Orally Once a dayTaking Allopurinol 100 MG Tablet 1 tablet Orally Once a dayTaking Doxazosin Mesylate 4 MG Tablet 1 tablet Orally Once a dayTaking NIFEdipine ER 60 MG Tablet Extended Release 24 Hour 1 tablet on an empty stomach Orally Once a dayTaking Carvedilol 25 MG Tablet 1 tablet with food Orally Twice a dayTaking Entecavir 0.5 MG Tablet 1 tablet on an empty stomach Orally Once a dayTaking Envarsus XR 1 MG Tablet Extended Release 24 Hour as directed Orally Taking Extra Depth Orthopedic Shoes (1 Pair) with Customized Heat Molded Multidensity Innersoles (3 Pair) as directed Dx: NIDDM/Polyneuropathy (E11.42), Hammertoe Foot Deformity (M20.41,M20.42), Preulcerative Skin Lesion(s) (L85.1Taking Gabapentin 300 MG Capsule TAKE 1 CAPSULE BY MOUTH EVERY NIGHT FOR NEUROPATHY AND INSOMNIA. Oral Taking Mycophenolate Sodium 360 MG Tablet Delayed Release Oral , Notes: Z940,UnavailableTaking Cinacalcet HCl 30 MG Tablet TAKE ONE TABLET BY MOUTH ONCE DAILY Oral Taking Jardiance 10 MG Tablet TAKE 1 TAB BY MOUTH TIME EACH DAY IN THE MORNING Oral Taking Spironolactone 25 MG Tablet TAKE 1 TABLET BY MOUTH 1 TIME EACH DAY. Oral Taking Extra Depth Orthopedic Shoes (1 Pair) with Customized Heat Molded Multidensity Innersoles (3 Pair) as directed Dx: NIDDM/Polyneuropathy (E11.42), Hammertoe Foot Deformity (M20.41,M20.42), Preulcerative Skin Lesion(s) (L85.1Taking Extra Depth Orthopedic Shoes (1 Pair) with Customized Heat Molded Multidensity Innersoles (3 Pair) as directed Dx: NIDDM/Polyneuropathy (E11.42), Hammertoe Foot Deformity (M20.41,M20.42), Preulcerative Skin Lesion(s) (L85.1Taking Ammonium Lactate 12 % Cream APPLY TO AFFECTED AREA TWICE A DAY TO DRY AREAS OF SKIN ON FEET Taking Tamsulosin HCl 0.4 MG Capsule Oral Not-Taking/PRNMagnesium 400 MG Capsule as directed Orally Medication List reviewed and reconciled with the patientNot-Taking/PRN Magnesium 400 MG Capsule as directed Orally Medication List reviewed and reconciled with the patient * Allergies:?Penicillinyes[All ergies Verified] Objective: * Vitals:?Ht: 5ft6in, Wt:177, BMI:28.57, Shoe size: 8.5, BP:150/60 mm Hg, BS: 120, Ht-cm: 167.64 cm, Wt-k.29 kg. * Examination: ???Ophthalmology Referral: ?DIABETES EYE EXAM?General Examination: ?GENERAL APPEARANCE:?Reveals a pleasant, alert, well nourished, well- developed, well hydrated individual, who demonstrates proper attention to hygiene/body habitus, and is in no acute distress, Pt serves as own historian for office visit today.?ORIENTED:?person, place, and time.?FOOT EXAM:?Footwear Evaluation?Vascular: ?DP PULSES(B):?2/4, B/L.?PT PULSES(B):?2/4, B/L.?Neurological: ?SENSORY:?Neurological exam demonstrates reduced light touch sensation reduced sharp/dull pin prick discrimination reduced vibration sensation reduced 5.07 monofilament test performed at plantar aspects of 5 varied sites per foot shows sensation reduced , , at Forefoot B/L.?TINEL'S COMPRESSION:??Negative tarsal tunnel, michel pedis, and medial calcaneal nerves b/l.?Orthopedic: ?GAIT ABNORMALITY:?antalgic?.?DIGITAL DEFORMITIES:?Digital contracture, PIPJ, 2-5 B/L, incompl-reducible to push-up test, no over, nor underlapping, with evidence of shoe producing skin irritation.?MPJ PATHOLOGY:??Pain, swelling, and inflammation to plantar MPJ(s), B/L , No MPJ pain with ROM , [ - ] Ecchymosis 2-5 b/l.?FOOTWEAR:?good condition.?Dermatologic: ?SKIN FINDINGS:?Skin exam reveals Keratotic lesion(s) located at, Medial plantar, IPJ, TA, Heel(s),.?Nails: ?NAILS are:?elongated,overgrown,dystrophic,greater than 3mm thick,discolored and friable with crumbly malodorous subungual debris, T1 T3 T4 T6 T7, T8 , with dull to no pain on palpation due to neuropathy.?Neuroma Pain: ?PALPATION:?No interspace pain noted on palpation , B/L.? Assessment: * Assessment: 1.?Type 2 diabetes mellitus with diabetic chronic kidney disease - E11.22?2.?Type 2 diabetes mellitus with diabetic polyneuropathy - E11.42?3.?Tinea unguium - B35.1?4. Pain in left foot - M79.672?5.?Pain in left ankle and joints of left foot - M25.572?6.?Bursitis of intermetatarsal bursa of left foot - M77.52?7.?Metatarsalgia of left foot - M77.42?8.?Pain in right foot - M79.671?9.?Pain in right ankle and joints of right foot - M25.571?10.?Bursitis of intermetatarsal bursa of right foot - M77.51?11.?Metatarsalgia, right foot - M77.41? Plan: * Treatment: 2.?Tinea unguium?Procedure: [id number]-[id number] NAIL, 6 OR MORE * Procedures:?Debride Nail 6-10:?Nail debridement?Nail debridement performed extensively to reduce/remove overall nail length and girth, subungual debris, and necrotic tissue, by manual and electrical means with use of a nail nipper and/or dremel, to more viable healthy nail plate or bed tissue 6-10. Silver nitrate used for any petechial bleeding as necessary. Patient chooses, no pharmaceutical tx (73246).?Keratoma Treatment:?Parring or Cutting of Benign Hyperkeratotic Lesion(s)?03657 (2-4 Lesions) - The Benign hyperkeratotic lesions, as described above were pared, and/or cut utilizing a sterile #15 blade, tissue nippers, and/or dremel.? * Procedure Codes:?75492 DEBRI DE NAIL, 6 OR MORE, Modifiers: XS 05227 TRIM SKIN LESIONS, 2 TO 4, Modifiers: XS * Preventive Medicine:? ??Counseling:?Discussion:?-13: Office or other outpatient visit for the evaluation and management of an established patient, which required a medically appropriate history and/or examination and LOW level of DECISION MAKING for: 1 STABLE ACUTE UNCOMPLICATED PROBLEM, 2 OR MORE MINOR PROBLEMS, OR 1 STABLE CHRONIC PROBLEM, THAT POSE(S) A LOW RISK FOR MORBIDITY/MORTALITY. The visit on the day of the encounter encompassed interpreting the data and educating the patient as to the nature of their condition, treatment options available according to their individual PMH, meds, allergies, and overall health/living conditions, as well as any potential risks or complications that may occur from a failure to adhere to, and participate in, the recommended course of therapy. The discussion included a complete verbal, and/or written explanation of the examination results, any x-rays taken, the proposed diagnosis, and outline of the treatment plan. A schedule for future care needs was also explained. The patient verbalized an understanding of the instructions at this time and agreed to be an active participant in their treatment. If the patient should think of any questions or concerns after the visit, I have encouraged the patient to call the office.?Metatarsalgea:?I explained to the patient the possible etiologies of their Metatarsalgea Foot pain, including foot type/shoegear/activity level/exercise routine and the risks/benefits of all the different treatment options for pain including: No treatment at all, Rest, Ice, NSAIDs(only if well tolerated after meals), New/supportive Shoegear, Strappings and Tapings, Foot/Ankle AFO Bracing, Stretching exercises, Deep Tissue Massage, Arch support/shoe inserts, Custom orthoses, Topical analgesics including Aspercream/Voltaren gel, Physical Therapy, Cortisone injection therapy, EPAT/ESWT. Advantages and disadvantages of each option were discussed and the patients questions re: shoegear, custom vs prefabricated inserts, activity level, PO vs Topical medications (and their respective potential complications/drug interactions/side effects), and consistency in home treatment regimens for optimal success were answered to their verbally confirmed satisfaction, Added Met Bar to OT b/l.? * Follow Up:?prn * Images: * Sign off status: Completed true * Provider:?Leticia Dywer DPM Date:?2023 Generated for Sven montes/Swati/eTlittleitting on:?01/01/2025 06:59 AM EST History and Physical Notes * HPI (History of Present Illness) Category Sub-Category Detail Notes Category Not es At Risk footcare Pt States Last PCP Visit: Date: 4 Foot Pain Location: Bottom, Forefoot, B/L Duration: , several days Onset: overuse Course: worse Aggravated: Treatments: rest/alter normal da eliezer activity , rest/alter normal daily activity Examination Category Sub-Category Detail Notes Category Not es Neuroma Pain PALPATION: No interspace pain noted on palpation , B/L Neurological SENSORY: Neurological exa m demonstrates reduced light touch sensation reduced sharp/dull pin prick discrimination reduced vibration sensation reduced 5.07 monofilament test performed at plantar aspects of 5 varied sites per foot shows sensation reduced , , at Forefoot B/L BABINSKI REFLEX: TINEL'S COMPRESSION: Negative tarsal rhett miles, michel pedis, and medial calcaneal nerves b/l DEEP TENDON REFLEXES: Dermatologic SKIN FINDINGS: Skin exam reveal s Keratotic lesion(s) located at, Medial plantar, IPJ, TA, Heel(s), Orthopedic GAIT ABNORMALITY: antalgic FOOTWEAR: good condition DIGITAL DEFORMITIES: Digital contracture , PIPJ, 2-5 B/L, incompl-reducible to push-up test, no over, nor underlapping, with evidence of shoe producing skin irritation MPJ PATHOLOGY: Pain, swelling, and inflammation to plantar MPJ(s), B/L , No MPJ pain with ROM , [ - ] Ecchymosis 2-5 b/l General Examination GENERAL APPEARANCE: Reveals a pleasant, alert, well nourished, well-developed, well hydrated individual, who demonstrates proper attention to hygiene/body habitus, and is in no acute distress, Pt serves as own historian for office visit today FOOT EXAM: Lower Extremity Neurological Exa m performed:: Yes ORIENTED: person, place, and t chuck Footwear Evaluation Footwear Evaluation performe d:: Yes Ophthalmology Referral DIABETES EYE EXAM Procedure Perform ed:: Yes Findings of Diabetic Eye Exam:: no retin opathy Vascular DP PULSES (B): 2/4, B/L PT PULSES (B): 2/4, B/L Nails NAILS are: elongated,overgr own,dystrophic,greater than 3mm thick,discolored and friable with crumbly malodorous subungual debris, T1 T3 T4 T6 T7, T8 , with dull to no pain on palpation due to neuropathy
--- OUTSIDE RECORDS SUMMARY | 2025-01-01 06:59 | XMS_ITS | Encounter Summary ---
Author Organization [facility] Address [address] [place] [address] Phone Care Team Providers Care Director Wholesale Name Role Phone Jonatan Anthony MD Primary Care Provider [phone] Reason for Visit * Reason Comments Med Refill Encounter Details Date Type Department Care Team (Late st Contact Info) Description 08/26/2023 Refill [facility], [address] [place] [address] Tyrell Oden MD [address] [place] [address] [place] [address] Social History Tobacco Use Types Packs/Day Years Used Date Smoking Tobacco: Never Alcohol Use Standard Drinks/Week Comments Yes 0 (1 standard drink = 0.6 oz pure alcohol) Alcoholic Drinks/day: Occasional social drink Sex and Gender Information Value Date Recorded Sex Assigned at Not on file Legal Sex Male 5:15 PM EST Gender Identity Not on file Sexual Orientation Not on file documented as of this encounter Plan of Treatment Upcoming Encounters Date Type Department Care Team (Late Contact Info) Description 02/14/2025 11:30 AM EDT Office Visit [facility] [address] [place] [address] Tyrell Oden MD [address] [place] [address] [place] [address] documented as of this encounter Visit Diagnoses Not on filedocumented in this encounter Care Teams Director Wholesale Relationship Specialty Start Date End Date Jonatan Anthony MD [facility] [address] [place] PCP - General Internal Medicine 04/29/22 documented as of this encounter
--- OUTSIDE RECORDS SUMMARY | 2025-01-01 06:59 | XMS_ITS | Encounter Summary ---
Author Organization [facility] Address [address] [place] [address] Phone Care Team Providers Care [employer] Programmer Name Role Phone Jonatan Anthony MD Primary Care Provider [phone] Encounter Details Date Type Department Care Team (Late Contact Info) Description 10/05/2023 Documentation Only [facility] [address] [place] [address] Tyrell Oden MD [address] [place] [address] [place] [address] Social History Tobacco Use Types [...] Visit [facility] [address] [place] [address] Tyrell Oden MD [address] [place] [address] [place] [address] documented as of this encounter Visit Diagnoses Not on filedocumented in this encounter Care Teams [employer] Programmer Relationship Specialty Start Date End Date Jonatan Anthony MD [facility] [place] [address] [place] [address] PCP - General Internal Medicine 04/29/22 documented as of this encounter
--- OUTSIDE RECORDS SUMMARY | 2025-01-01 06:59 | XMS_ITS | Encounter Summary ---
Author Organization [facility] Address [address] [place] [address] Phone Care Team Providers Care Sash Assembler Name Role Phone Jonatan Anthony MD Primary Care Provider [phone] Encounter Details Date Type Department Care Team (Late Contact Info) Description 03/31/2022 Documentation Only [facility] [address] [place] [address] Christopher Caicedo PA Social History Tobacco Use Types Packs/Day Years [...] Visit [facility] [address] [place] [address] Tyrell Oden MD [address] [place] [address] [place] [address] documented as of this encounter Visit Diagnoses Not on filedocumented in this encounter Care Teams Sash Assembler Relationship Specialty Start Date End Date Jonatan Anthony MD [facility] [place] [address] [place], [place] PCP - General Internal Medicine 04/29/22 documented as of this encounter
--- OUTSIDE RECORDS SUMMARY | 2025-01-01 06:59 | XMS_ITS | Encounter Summary ---
Author Organization [facility], Address [address] [place] [address] Phone Care Team Providers Care Equity Sales Assistant Name Role Phone Jonatan Anthony MD Primary Care Provider [phone] Reason for Visit * Reason Comments Med Refill Encounter Details Date Type Department Care Team (Late Contact Info) Description 08/01/2023 Refill [facility] [address] [place] [address] Christopher Caicedo PA Social History [...] Upcoming Encounters Date Type Department Care Team ([facility] Contact Info) Description 02/14/2025 11:30 AM EDT Office Visit [facility] [address] [place] [address] Tyrell Oden MD [address] [place] [address] [place] [address] documented as of this encounter Visit Diagnoses Not on filedocumented in this encounter Care Teams Equity Sales Assistant Relationship Specialty Start Date End Date Jonatan Anthony MD [facility] [address] [place] PCP - General Internal Medicine 04/29/22 documented as of this encounter
--- OUTSIDE RECORDS SUMMARY | 2025-01-01 06:59 | XMS_ITS | Encounter Summary ---
Author Organization [facility], Address [address] [place] [address] Phone Care Team Providers Care Control And Recovery Special Tactics Name Role Phone Jonatan Anthony MD Primary Care Provider [phone] Reason for Visit * Reason Comments Med Refill Encounter Details Date Type Department Care Team (Late Contact Info) Description 11/23/2023 Refill [facility] [address] [place] [address] Christopher Caicedo PA Long-term drug therapy Social History Tobacco Use Types Packs/Day Years [...] Office Visit [facility] [address] [place] [address] Tyrell Oden MD [address] [place] [address] [place] [address] documented as of this encounter Visit Diagnoses Diagnosis Long-term drug therapy documented in this encounter Care Teams Control And Recovery Special Tactics Relationship Specialty Start Date End Date Jonatan Anthony MD [address] [facility] [place] PCP - General Internal Medicine 04/29/22 documented as of this encounter
--- OUTSIDE RECORDS SUMMARY | 2025-01-01 07:00 | XMS_ITS | Encounter Summary ---
Author Organization [facility], Address [address] [place] [address] Phone Care Team Providers Care Restaurant Culinary Manager Name Role Phone Jonatan Anthony MD Primary Care Provider [phone] Reason for Visit * Reason Comments Med Refill Encounter Details Date Type Department Care Team (Late Contact Info) Description 06/21/2023 Refill [facility] [address] [place] [address] Tyrell Oden MD [address] [place] [address] [place] [address] Social History Tobacco Use Types [...] Office Visit [facility] [address] [place] [address] Tyrell Oden MD [address] [place] [address] [place] [address] documented as of this encounter Visit Diagnoses Not on filedocumented in this encounter Care Teams Restaurant Culinary Manager Relationship Specialty Start Date End Date Jonatan Anthony MD [facility] [address] [place] PCP - General Internal Medicine 04/29/22 documented as of this encounter
--- OUTSIDE RECORDS SUMMARY | 2025-01-01 07:00 | XMS_ITS | Encounter Summary ---
Author Organization [facility] [place], Address [address] [place] [address] Phone Care Team Providers Care Composition Roofer Name Role Phone Jonatan Anthony MD Primary Care Provider [phone] Encounter Details Date Type Department Care Team (Latest Contact Info) Description 12/13/2024 10:00 AM EST Office Visit [facility] [address] [place] [address] Tyrell Oden MD [address] [place] [address] [place] [phone] Kidney replaced by transplant (Primary Dx); Personal history of immunosuppression therapy; Stage 3b chronic kidney disease (HCC); Type 2 diabetes mellitus with diabetic chronic kidney disease (HCC); Essential hypertension; Anemia in chronic kidney disease Social History Tobacco Use Types Packs/Day Years [...] on file documented as of this encounter Last Filed Vital Signs Vital Sign Reading Time Taken Comments Blood Pressure 148/60 12/13/2024 10:26 AM EST Pulse - - Temperature - - Respiratory Rate - - Oxygen Saturation - - Inhaled Oxygen Concentration - - Weight 80.3 kg (177 lb) 12/13/2024 10:26 AM EST Height - - Body Mass Index 28.57 10/11/2024 9:39 AM EST documented in this encounter H&P Notes * Tyrell Oden MD - 12/13/2024 10:00 AM EST PATIENT: Maninder Pack : 1950 ENCOUNTER: 12/13/2024 PCP: Jonatan Anthony MD Pre-Transplant [facility] Diagnosis: Hypertensive nephrosclerosis, Diabetic nephropathy [facility] Biopsy: [place] renal bx reportedly DM but alports on genetic testing Genetic Testing: [x] Y/ [] N: Findings 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 Other variants of unknown significance also detected. See Jose Macdonald report from 05/23/2021. Dialysis History: [x]Y/ []N: Type/Date In-center hemodialysis [facility] 03/04/2019 Dialysis Access: Prior Transplants: []Y/ [x] N: Date/ Immuno regimen/ Failure Reason Current Transplant Date of Surgery: 09/30/2021 Transplant Program: [facility] Donor Type: [x]DD []DCD []DBD []LRD []LUR KDPI: 93% Pre-Transplant cPRA: 0% Induction Therapy: Campath Immunosuppression Therapy: Envarsus monotherapy Complications during perioperative period: slow graft function, did not require dialysis Entacavir x 6 months (stop date 03/30/22) Viral Studies Recipient Donor CMV positive positive EBV positive positive Hepatitis C Antibody positive Positive (Ab) Hepatitis B Core positive positive Hepatitis B Antigen negative -- Hepatitis B Antibody positive -- HIV SAMANTHA -- negative Hep C SAMANTHA negative negative Hep B SAMANTHA -- negative Immunosuppression Regimen Target Level Indication Primary Envarsus 5-6 BK Antimetabolite Steroid BK Monitoring (Monthly x 1 yr then quarterly x 1 yr; minimal 2x yr if positive hx of BK) BK Virus DNA, Quant PCR: Date- 12/21/21 Result- 17,000 BK Virus PCR, Quant Urine: Date- 12/21/21 Result- >2 billion BK Virus DNA, Quant PCR: Date- 07/11/22 Result- 117,000 BK Virus PCR, Quant Urine: Date- 07/11/22 Result- not detected Biopsy History Biopsy Date and Reason: 11/15/21 elevated creatinine and BK Findings: negative for acute rejection; C4D negative Treatment: none DSA: no DSA Follow up biopsy and DSA: 1 yr protocol due in Sep 2022; rpt DSA in Nov 2021- no DSA Final Diagnosis: 09/26/22 Renal Allograft, core biopsy (diagnosis based on LM): - Patchy interstitial inflammation in scarred and non-scarred cortex, with focal mild tubulitis. (see comment) - Patchy tubular injury and cytoplasmic isometric vacuolization. - Glomeruli and peritubular capillaries with mild microvascular inflammation. - Global sclerosis of 35% of total glomeruli. - Interstitial fibrosis and tubular atrophy, moderate. - Arterial sclerosis, mild to moderate. Comment: The prior biopsy at 6 weeks post-transplant (see [id number]) is reviewed for comparison. The currentbiopsy shows interstitial inflammation in expanded and scarred interstitium estimated to involve nogreater than 10% of the non-scarred cortex, with mild tubulitis mostly in atrophic tubules. While interpreted as not diagnostic for borderline/ATCMR, the findings are concerning for an evolving alloimmune response. DSA levels are unknown. Tubular epithelial injury and isometric vacuolization, as seen in the prior biopsy, raise the differential of calcineurin-inhibitor toxicity. There is progression of interstitial fibrosis and tubular atrophy. Clinical correlation advised. In the interval since our last visit I have had the opportunity to review the following, if available: -laboratory data, imaging studies, and cardiovascular data -current medications from the patient; any changes from previous (including information from the patient's pharmacy, [facility], and Care Everywhere) -Transplant Data Sheet During this visit I had the opportunity for a full review of systems and limited physical exam as outlined below, with the pertinent findings noted and others found to be negative or noncontributory to the current assessment of this patient. HPI and recent/active issues include: Maninder seems to be doing reasonably well. He is under a bit of stress due to some recent legal issues. His blood pressures been running a bit high and according to his family this correlates with his distress with regard to his current social situation. He has no headaches or chest pain. He has no dizziness. No changes have been made in his medications. ROS: As noted above. GENERAL MEDICAL HISTORY: Patient Active Problem List Diagnosis Date Noted ??? 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 Hypercalcemia 06/02/2023 ??? Hypomagnesemia 02/09/2023 ??? Stage 3b chronic kidney disease (HCC) 04/30/2022 ??? Anemia in chronic kidney disease 02/11/2022 ??? Hypervolemia 01/07/2022 ??? Hepatitis B core antibody detected 01/07/2022 ??? Secondary hyperparathyroidism of renal origin (HCC) 01/07/2022 ??? Other iron deficiency anemia 01/07/2022 ??? 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 Vitamin D deficiency 01/06/2022 ??? Type 2 diabetes mellitus (HCC) 01/06/2022 ??? Essential hypertension 01/06/2022 ??? Memory impairment 01/06/2022 ??? Mixed hyperlipidemia 01/06/2022 ??? Transfusion of blood product declined for temple reason 01/06/2022 ??? Proteinuria 01/06/2022 ??? Kidney replaced by transplant 01/06/2022 ??? Personal history of immunosuppression therapy 01/06/2022 ??? Gout 02/01/2019 ??? Benign hypertensive renal disease 02/01/2019 MEDICATIONS: Outpatient Encounter Medications as of 12/13/2024 Medication Sig Dispense Refill ??? allopurinol (ZYLOPRIM) 100 MG tablet Take 1 tablet (100 mg total) by mouth 1 (one) time each day 90 tablet 3 ??? Belatacept 250 MG reconstituted solution Infuse 2 vials into a venous catheter every 28 (twenty-eight) days Administer 5mg per kg; pt weight as of 09/09/24 81.5 kg 2 each 11 ??? carvedilol (COREG) 25 MG tablet Take 1 tablet (25 mg total) by mouth in the morning and 1 tablet (25 mg total) in the evening. 180 tablet 3 ??? cinacalcet (SENSIPAR) 30 MG tablet Take 1 tablet (30 mg total) by mouth in the morning and 1 tablet (30 mg total) in the evening. 60 tablet 11 ??? docusate sodium (COLACE) 100 MG capsule Take 100 mg by mouth ??? donepezil (Aricept) 10 MG tablet Take 1 tablet (10 mg total) by mouth every night 30 tablet 11 ??? doxazosin (CARDURA) 4 MG tablet Take 1 tablet (4 mg total) by mouth at bed time 90 tablet 3 ??? ezetimibe (Zetia) 10 MG tablet Take 1 tablet (10 mg total) by mouth 1 (one) time each day 30 tablet 11 ??? folic acid (FOLVITE) 1 MG tablet TAKE ONE TABLET BY MOUTH ONCE DAILY 30 tablet 3 ??? gabapentin (NEURONTIN) 300 MG capsule Take 1 capsule (300 mg total) by mouth every night For neuropathy and insomnia. 30 capsule 11 ??? Jardiance 10 MG tablet TAKE 1 TAB BY MOUTH TIME EACH DAY IN THE MORNING 90 tablet 3 ??? lisinopril 20 MG tablet Take 1 tablet (20 mg total) by mouth 1 (one) time each day 30 tablet 11 ??? mycophenolate (MYFORTIC) 360 MG EC tablet Take 1 tablet (360 mg total) by mouth in the morning and 1 tablet (360 mg total) in the evening. 180 tablet 3 ??? NIFEdipine XL (PROCARDIA XL) 60 MG 24 hr tablet Take 1 tablet (60 mg total) by mouth 1 (one) time each day Do not crush, chew, or split. 30 tablet 11 No facility-administered encounter medications on file as of 12/13/2024. PHYSICAL EXAM: BP 148/60 Wt 177 lb (80.3 kg) BMI 28.57 kg/m?? Constitutional: No apparent distress Cardiovascular: No friction rub or obvious JVD elevatin Pulmonary/Chest: No rales or wheezing. Abdominal: Soft and non-tender over the allograft. Extremities: Edema None LABS: Chemistry Lab Units 12/12/24 0823 10/24/24 1021 10/09/24 1012 08/08/24 0817 05/01/24 0814 02/21/24 0812 12/21/23 0807 10/26/23 0800 08/31/23 0800 07/06/23 0802 06/12/23 0808 05/10/23 0943 04/13/23 0804 CREATININE mg/dL 1.75* -- 1.60* 1.67* 1.91* 1.84* 1.8* 1.8* 1.9* 2.4* 1.9* 2.7* 2.3* BUN mg/dL 35* -- 32* 39* 39* 38* 44* 39* 41* 69* 59* 50* 42* POTASSIUM mmol/L 4.3 4.5 4.5 4.6 5.0 4.9 4.9 4.7 4.3 4.3 4.0 4.4 4.1 SODIUM mmol/L 142 -- 139 142 138 142 140 139 140 140 141 141 144 CO2 mmol/L 20 -- 19* 19* 19* 19* 22 24 21* 24 22 22 23 CHLORIDE mmol/L 110* -- 107* 109* 106 109* 108* 107 110* 102 102 106 109* ALBUMIN g/dL 3.9 -- 4.3 4.1 4.1 4.2 4.2 4.1 4.0 4.1 4.4 4.0 4.4 EGFRNAFR ML/MIN/1.73 M2 -- -- -- -- -- -- 40 40 36 28 38 24 30 HEMOGLOBIN A1C % -- -- 5.8* -- 5.9* -- -- 5.6 5.3 -- -- 6.2* 6.6* WBC AUTO x10E3/uL 3.2* -- 4.8 4.1 5.5 4.6 4.0 4.8 4.9 6.2 8.0 4.1 4.3 HEMATOCRIT % 39.6 -- 42.3 42.8 41.1 38.4 40.7 42.9 37.8* 38.2* 38.7* 35.4* 36.6* HEMOGLOBIN g/dL 12.7* -- 13.2 13.4 13.1 12.2* 12.4* 13.3* 11.7* 12.2* 12.4* 10.8* 11.3* PLATELETS AUTO x10E3/uL 184 -- 201 173 222 220 202 260 235 275 286 133* 153 Bone Mineral Lab Units 12/12/24 0823 10/09/24 1012 08/08/24 0817 05/01/24 0814 02/21/24 0812 12/21/23 0807 10/26/23 0800 08/31/23 0800 05/10/23 0943 04/13/23 0804 CALCIUM mg/dL 10.6* 10.6* 11.1* 11.0* 11.1* 11.4* < > 11.5* < > 10.5 PHOSPHORUS mg/dL 2.9 2.9 2.8 2.7* 3.1 3.0 < > 2.7 < > 2.8 PTH pg/mL -- 216* -- 244* -- -- -- 333* -- 389* VITAMIN D NG/ML -- -- -- -- -- -- -- 33.8 -- 39.9 VIT D 25 HYDROXY ng/mL -- 35.0 -- 23.7* -- -- -- -- -- -- < > = values in this interval not displayed. Visit Diagnoses and Active Issues: 1. Kidney replaced by transplant 2. Personal history of immunosuppression therapy 3. Stage 3b chronic kidney disease (HCC) 4. Type 2 diabetes mellitus with diabetic chronic kidney disease (HCC) 5. Essential hypertension 6. Anemia in chronic kidney disease SUMMARY: Based on the above findings and my interpretation of the available data and medication review, the following changes and/or recommendations for further testing, monitoring, treatment options, and follow-up are provided for your review: ASSESSMENT AND PLAN 1. Allograft function: His allograft function is stable. We will continue to monitor. 2. Immunosuppression: He remains on a stable immunosuppressive regimen and we have made no changes.We will continue to monitor accordingly. 3. Blood pressure/volume status: His blood pressure is a bit elevated. It may be because of stress.He is going through some legal issues and according to his family his blood pressure is seeming to correlate with his level of stress. They will keep an eye on it at home. I made no changes in his medications but we could do this if it is more persistent. 4. Hematology: Overall stable. Continue to monitor. 5. Metabolic: No active issues. Continue to monitor per routine labs. His hemoglobin A1c is excellent at 5.8%. 6. Infection/prophylaxis: No active issues. 7. Other active issues: He does have Alzheimer's dementia. He is going to follow-up with a new neurologist according to the daughter. He continues on Aricept. No orders of the defined types were placed in this encounter. documented in this encounter Plan of Treatment Upcoming Encounters Date Type Department Care Team (Late st Contact Info) Description 02/14/2025 11:30 AM EDT Office Visit [facility] [address] [place] [address] Tyrell Oden MD [address] [place] [address] documented as of this encounter Visit Diagnoses Diagnosis Kidney replaced by transplant- Primary Personal history of immunosuppression therapy Stage 3b chronic kidney disease (HCC) Type 2 diabetes mellitus with diabetic chronic kidney disease (HCC) Essential hypertension Anemia in chronic kidney disease documented in this encounter Care Teams Composition Roofer Relationship Specialty Start Date End Date Jonatan Anthony MD [address] [place], [place] PCP - General Internal Medicine 04/29/22 documented as of this encounter
--- OUTSIDE RECORDS SUMMARY | 2025-01-01 07:00 | XMS_ITS | Clinical Summary ---
Author Organization [facility] Address [address] [place] [address] Care Team Providers Care Plate Grinder Name Role Phone Pcp, No Primary Care Provider Unavailabl e Social History Tobacco Use Types Packs/Day Years Used Date Smoking Tobacco: Never Assessed Sex and Gender Information Value Date Recorded Sex Assigned at Male 05/10/2023 2:52 PM EDT Gender Identity Male 05/10/2023 2:52 PM EDT Sexual Orientation Heterosexual (straight) 05/10 2:52 PM EDT Plan of Treatment Health Maintenance Due Date Last Done Comments Hepatitis C Virus Screening 1950 DTaP/Tdap/Td Vaccines (1 - Tdap) 1969 Colonoscopy 1995 Pneumococcal Vaccines 50+ (1 of 1 - PCV) 2000 Zoster (Shingles) Vaccine (1 of 2) 2000 Influenza Vaccine 06/20/2024 09/04/2014, , 01/23/2014, Additional history exists COVID-19 Vaccine ( season) 2024 01/21/2022, 02/12/2021, 12/31/2020 RSV Vaccine 60 years and older and Patients (1 - 1-dose 75+ series) 2025 Hepatitis B Vaccines Aged Out No long er eligible based on patient's age to complete this topic Care Teams Plate Grinder Relationship Specialty Start Date End Date Pcp, No [address] [place] [address] PCP - General 03/28/22
--- OUTSIDE RECORDS SUMMARY | 2025-01-01 07:00 | XMS_ITS | Encounter Summary ---
Author Organization [facility], Address [address] [place] [address] Phone Care Team Providers Care Abrasives Sales Representative Name Role Phone Jonatan Anthony MD Primary Care Provider [phone] Reason for Visit * Reason Comments Med Refill Encounter Details Date Type Department Care Team (Late Contact Info) Description 12/26/2022 Refill [facility] [address] [place] [address] Tyrell Oden MD [address] [place] [address] [place] [address] Social History Tobacco Use Types [...] Office Visit [facility] [address] [place] [address] Tyrell Oden MD [address] [place] [address] [place] [address] documented as of this encounter Visit Diagnoses Not on filedocumented in this encounter Care Teams Abrasives Sales Representative Relationship Specialty Start Date End Date Jonatan Anthony MD [facility] [address] [place] PCP - General Internal Medicine 04/29/22 documented as of this encounter
--- OUTSIDE RECORDS SUMMARY | 2025-01-01 07:00 | XMS_ITS ---
Author Organization [facility] Address [address] [place] [address] Care Team Providers Care Inspector Machine Cut Glass Name Role Phone Jonatan Anthony Primary Care Provider Nichole candis ReymundoTaylercandis Beck [phone] REASON FOR VISIT Refill RX Medications Medication SIG (Take, Route, Fr equency, Duration) Notes Start Date End Date Status Ammonium Lactate 12 % 1 application to a ffected area Externally Twice a day to dry areas of skin on feet for 30 days 12/11/2023 Active Encounters Encounter Location Date Provider Diagnosis [facility] [address] [place] [address] 08/19/2024 Leticia Dwyer Xerosis cutis L85.3 Assessments Encounter Date Diagnosis (ICD Code) Assessment Notes Treatment Notes Treatment Clinical Notes Section Notes 08/19/2024 Xerosis cutis (ICD-10 - L85.3) Plan Of Treatment Medication Medication Name Sig Start Date Stop Date Notes Ammonium Lactate 12 % 1 application to a ffected area Externally Twice a day to dry areas of skin on feet for 30 days 12/11/2023 Next Appt Details Provider Name:Leticia A Reymundo , 03/31/2025 09:30:00 AM, [address] [place], [address], Progress Notes * RAMONE ManinderDOB: [birth year] (74 yo M)Acc No.[id number]:08/19/2024 Patient:?Maninder Pack :1950???Age:74 Y???Sex:Male Address:[address] [place] [address], [place], [address] * Refills? Refill Ammonium Lactate Cream, 12 %, Externally, 140, 1 application to affected area, Twice a day to dry areas of skin on feet, 30 days, Refills=2 * true * Date:? Generated for Sven montes/Swati/Alizeitting on:?01/01/2025 06:59 AM EST
--- OUTSIDE RECORDS SUMMARY | 2025-01-01 07:00 | XMS_ITS | Encounter Summary ---
Author Organization [facility] Address [address] [place] [address] Phone Care Team Providers Care Healthcare Economics Manager Name Role Phone Jonatan Anthony MD Primary Care Provider [phone] Reason for Visit * Reason Comments Med Refill Encounter Details Date Type Department Care Team ([facility] Contact Info) Description 08/27/2024 Refill [facility] [address] [place] [phone] Rakesh King MD [address] [place] [address] [place] [address] Social History Tobacco Use Types Packs/Day Years [...] Upcoming Encounters Date Type Department Care Team ([facility] Contact Info) Description 02/14/2025 11:30 AM EDT Office Visit [facility] [place] [address] [place] [address] Tyrell Oden MD [address] [place] [phone] documented as of this encounter Visit Diagnoses Not on filedocumented in this encounter Care Teams Healthcare Economics Manager Relationship Specialty Start Date End Date Jonatan Anthony MD [facility] [place] [address] [place] PCP - General Internal Medicine 04/29/22 documented as of this encounter
--- OUTSIDE RECORDS SUMMARY | 2025-01-01 07:00 | XMS_ITS | Encounter Summary ---
Author Organization [facility], Address [address] [place] [address] Phone Care Team Providers Care Metal Engineering Process Worker Name Role Phone Jonatan Anthony MD Primary Care Provider [phone] Reason for Visit * Reason Comments Med Refill Encounter Details Date Type Department Care Team (Late Contact Info) Description 06/27/2023 Refill [facility] [address] [place] [address] Christopher Caicedo PA Social History [...] Upcoming Encounters Date Type Department Care Team ([facility] Contact Info) Description 02/14/2025 11:30 AM EDT Office Visit [facility] [address] [place] [address] Tyrell Oden MD [address] [place] [address] [place] [address] documented as of this encounter Visit Diagnoses Not on filedocumented in this encounter Care Teams Metal Engineering Process Worker Relationship Specialty Start Date End Date Jonatan Anthony MD [facility] [place]NAL [place] [address] [place] PCP - General Internal Medicine 04/29/22 documented as of this encounter
--- OUTSIDE RECORDS SUMMARY | 2025-01-01 07:00 | XMS_ITS | Encounter Summary ---
Author Organization [facility] Address [address] [place] [address] Phone Care Team Providers Care Forest Fire Prevention Specialist Name Role Phone Jonatan Anthony MD Primary Care Provider [phone] Encounter Details Date Type Department Care Team ([facility] Contact Info) Description 08/26/2024 Documentation Only [facility] [place], [address] [place] [address] Essence King [place] [address] [place] [phone] Social History Tobacco Use Types Packs/Day Years [...] Upcoming Encounters Date Type Department Care Team ([facility] Contact Info) Description 02/14/2025 11:30 AM EDT Office Visit [facility] [place] [address] [place] [address] Tyrell Oden MD [address] [place] [address] documented as of this encounter Visit Diagnoses Not on filedocumented in this encounter Care Teams Forest Fire Prevention Specialist Relationship Specialty Start Date End Date Jonatan Anthony MD [facility] INTERNAL [place] [address] [employer] [employer], [place] PCP - General Internal Medicine 04/29/22 documented as of this encounter
--- OUTSIDE RECORDS SUMMARY | 2025-01-01 07:00 | XMS_ITS | Encounter Summary ---
Author Organization [facility] Address [address] [place] [address] Phone Care Team Providers Care Air Brake Mechanic Name Role Phone Jonatan Anthony MD Primary Care Provider [phone] Encounter Details Date Type Department Care Team ([facility] Contact Info) Description 07/31/2023 Documentation Only [facility] [address] [place] [address] Angie Martinez [address] [place] [phone] Social History Tobacco Use Types Packs/Day Years [...] Visit [facility] [place] [address] [place] [address] Tyrell Oden MD [address] [facility] [address] [place] [phone] documented as of this encounter Visit Diagnoses Not on filedocumented in this encounter Care Teams Air Brake Mechanic Relationship Specialty Start Date End Date Jonatan Anthony MD [facility] INTERNAL [place] [address] [place] PCP - General Internal Medicine 04/29/22 documented as of this encounter
--- OUTSIDE RECORDS SUMMARY | 2025-01-01 07:00 | XMS_ITS | Encounter Summary ---
Author Organization [facility] Address [address] [place] [address] Phone Care Team Providers Care Medical Assistant Ob Gyn Name Role Phone Jonatan Anthony MD Primary Care Provider [phone] Encounter Details Date Type Department Care Team ([facility] Contact Info) Description 08/26/2024 Documentation Only [facility] [place], [address] [place] [address] Essence King [place] [address] [place] [phone] Social History Tobacco Use Types Packs/Day Years [...] Upcoming Encounters Date Type Department Care Team ([facility] Contact Info) Description 02/14/2025 11:30 AM EDT Office Visit [facility] [place] [address] [place] [address] Tyrell Oden MD [address] [place] [address] documented as of this encounter Visit Diagnoses Not on filedocumented in this encounter Care Teams Medical Assistant Ob Gyn Relationship Specialty Start Date End Date Jonatan Anthony MD [facility] INTERNAL [place] [address] [place], [place] PCP - General Internal Medicine 04/29/22 documented as of this encounter
--- OUTSIDE RECORDS SUMMARY | 2025-01-01 07:00 | XMS_ITS | Encounter Summary ---
Author Organization [facility] [place], Address [address] [place] [address] Phone Care Team Providers Care Drilling Field Specialist Name Role Phone Jonatan Anthony MD Primary Care Provider [phone] Encounter Details Date Type Department Care Team (Late Contact Info) Description 12/12/2024 Orders Only [facility] [address] [place] [address] Christopher Caicedo PA Social History [...] Visit [facility] [address] [place] [address] Tyrell Oden MD [address] [place] [address] [place] [address] documented as of this encounter Procedures Procedure Name Priority Date/Time Associated Diagnosis Comments URINALYSIS, COMPLETE Routine 12/12/2024 3:14 PM EST MICROSCOPIC EXAMINATION - DO NOT USE Routine 12/12/2024 3:14 PM EST PROTEIN / CREATININE RATIO, URINE Routine 12/12/2024 3:14 PM EST documented in this encounter Results * (ABNORMAL) Protein, Total, Random Urine w/Creatinine (Protein/Creat Ratio) (12/12/2024 3:14 PM EST) Creatinine, Ur 115.7 Not Estab. mg/dL [facility] Protein, Ur 37.9 Not Estab. mg/dL [facility] Urine Protein/Creati nine Ratio 328(H) 0 - 200 mg/g creat [facility] 12/12/2024 3:14 PM EST 12/12/2024 Christopher THOMAS LAB URINE ORDERABLES Final Re sult Performing Organization Address City/[facility]/ZIP Co de Phone Number [facility] [address] [place] [address] * Microscopic Examination (12/12/2024 3:14 PM EST) WBC, Urine None seen 0 - 5 /hpf [facility] RBC, Urine None seen 0 - 2 /hpf [facility] Squamous Epithelial, Urine None seen 0 - 10 /hpf [facility] Casts None seen None seen /lpf [facility] Bacteria, Urine None seen None seen/Few [facility] 12/12/2024 3:14 PM EST 12/12/2024 Christopher THOMAS LAB MICROBIOLOGY - GENERAL OR DERABLES Final Result Performing Organization Address City/[facility]/ZIP Co de Phone Number [facility] [address] [place] [address] * (ABNORMAL) Urinalysis, Complete w/reflex to Culture (12/12/2024 3:14 PM EST) Specific Wood, Urine 1.026 1.005 - 1.030 [facility] pH Urine 5.5 5.0 - 7.5 [facility] Color, Urine Yellow Yellow [facility] Appearance Urine Clear Clear [facility] [place] [phone] WBC Esterase Urine Negative Negative [facility] Protein, Ur 1+(A) Negative/Tra ce [facility] Glucose, Ur 3+(A) Negative [facility] Ketones, Urine Negative Negative [facility] [place] Blood Urine Negative Negative [facility] Bilirubin Urine Negative Negative [facility] [place] Urobilinogen Urine 0.2 0.2 - 1.0 mg/dL [facility] [phone] Nitrite, Urine Negative Negative [facility] [place] Microscopic Examination See below: [facility] Comment:Microscopic was shin cated and was performed. URINALYSIS REFLEX Comment [facility] Comment:This specimen will n ot reflex to a Urine Culture. 12/12/2024 3:14 PM EST 12/12/2024 us Christopher THOMAS LAB URINE ORDERABLES Final Re sult [facility] [address] [place] [address] documented in this encounter Visit Diagnoses Not on filedocumented in this encounter Care Teams Drilling Field Specialist Relationship Specialty Start Date End Date Jonatan Anthony MD [facility] [place] [address] [place] PCP - General Internal Medicine 04/29/22 documented as of this encounter
--- OUTSIDE RECORDS SUMMARY | 2025-01-01 07:00 | XMS_ITS | Encounter Summary ---
Author Organization [facility], Address [address] [place] [address] Phone Care Team Providers Care Therapy Director Name Role Phone Jonatan Anthony MD Primary Care Provider [phone] Reason for Visit * Reason Comments Med Refill Encounter Details Date Type Department Care Team (Late Contact Info) Description 01/31/2023 Refill [facility] [address] [place] [address] Christopher Caicedo PA Social History [...] Upcoming Encounters Date Type Department Care Team ([facility] Contact Info) Description 02/14/2025 11:30 AM EDT Office Visit [facility] [address] [place] [address] Tyrell Oden MD [address] [place] [address] [place] [address] documented as of this encounter Visit Diagnoses Not on filedocumented in this encounter Care Teams Therapy Director Relationship Specialty Start Date End Date Jonatan Anthony MD [facility] INTERNAL [address] [place] PCP - General Internal Medicine 04/29/22 documented as of this encounter
--- OUTSIDE RECORDS SUMMARY | 2025-01-01 07:00 | XMS_ITS | Encounter Summary ---
Author Organization [facility] Address [address] [place] [address] Phone Care Team Providers Care Sleeve Bottom Feller Name Role Phone Jonatan Anthony MD Primary Care Provider [phone] Encounter Details Date Type Department Care Team ([facility] Contact Info) Description 10/28/2024 Documentation Only [facility] [place], [address] [place] [address] Maddy Nunez [place] [address] [place] [address] Social History Tobacco Use Types Packs/Day Years [...] Visit [facility] [place] [address] [place] [address] Tyrell Oden MD [address] [place] [address] documented as of this encounter Visit Diagnoses Not on filedocumented in this encounter Care Teams Sleeve Bottom Feller Relationship Specialty Start Date End Date Jonatan Anthony MD [facility] [place] [place] [address] [place] PCP - General Internal Medicine 04/29/22 documented as of this encounter
--- OUTSIDE RECORDS SUMMARY | 2025-01-01 07:00 | XMS_ITS | Encounter Summary ---
Author Organization [facility] Address [address] [place] [address] Phone Care Team Providers Care Salad Counter Attendant Name Role Phone Jonatan Anthony MD Primary Care Provider [phone] Encounter Details Date Type Department Care Team (Late Contact Info) Description 06/13/2023 Documentation Only [facility] [address] [place] [address] Christopher Caicedo PA Social History [...] Visit [facility] [address] [place] [address] Tyrell Oden MD [address] [place] [address] [place] [address] documented as of this encounter Visit Diagnoses Not on filedocumented in this encounter Care Teams Salad Counter Attendant Relationship Specialty Start Date End Date Jonatan Anthony MD [facility] INTERNAL [place] [address] [place], [place] PCP - General Internal Medicine 04/29/22 documented as of this encounter
--- OUTSIDE RECORDS SUMMARY | 2025-01-01 07:00 | XMS_ITS | Patient Health Record ---
Author Organization [facility] Brad latoya KangKaz Address [address] [place] [address] Care Team Providers Care Environmental Science Instructor Name Role Phone Jonatan Anthony Primary Care Provider UnavailLeticia Huff Unavailable [phone] Allergies Allergen (clinical drug ingredient) Drug/Non Drug Allergy documented on EMR Reaction Allergy Type Onset Date Status Penicillin Unknown Drug Allergy Active Reason For Referral No Information Medications Medication SIG (Take, Route, Frequency, Duration) Notes Start Date End Date Status Gabapentin 300 MG TAKE 1 CAPSULE BY MOUTH EVERY NIGHT FOR NEUROPATHY AND INSOMNIA. Oral for 30 Active Mycophenolate Sodium 360 MG Oral for 30 Z940,Unavail able Active Folic Acid 1 MG 1 tablet Orally Once a day for 30 day(s) Active Rosuvastatin Calcium 5 MG 1 tablet Orally Once a day for 30 day(s) Active Cinacalcet HCl 30 MG TAKE ONE TABLET BY MOUTH ONCE DAILY Oral for 30 Active Sensipar 30 MG 1 tablet with food or after a meal Orally Once a day for 30 day(s) Active Lasix 20 MG 1 tablet Orally Once a day for 30 day(s) Active Stool Softener 50mg 1x day, 100mg 2x day Active glipiZIDE 5 MG 1 tablet 30 minutes before breakfast Orally Once a day for 30 day(s) Not-Taking Multivitamin Active Magnesium 400 MG as directed Orally Not-Taking Ammonium Lactate 12 % APPLY TO AFFECTED AREA TWICE A DAY TO DRY AREAS OF SKIN ON FEET for 30 Active Tamsulosin HCl 0.4 MG Oral for 30 Days Active Extra Depth Orthopedic Shoes (1 Pair) with Customized Heat Molded Multidensity Innersoles (3 Pair) as directed Dx: NIDDM/Polyneuropathy (E11.42), Hammertoe Foot Deformity (M20.41,M20.42), Preulcerative Skin Lesion(s) (L85.1 12/11/2023 Active Night Splint AFO - L1930 1 wear when at rest for 30 days Active Extra Depth Orthopedic Shoes (1 Pair) with Customized Heat Molded Multidensity Innersoles (3 Pair) as directed Dx: NIDDM/Polyneuropathy (E11.42), Hammertoe Foot Deformity (M20.41,M20.42), Preulcerative Skin Lesion(s) (L85.1 06/13/2024 Active Jardiance 10 MG TAKE 1 TAB BY MOUTH TIME EACH DAY IN THE MORNING Oral for 90 Active Spironolactone 25 MG TAKE 1 TABLET BY MOUTH 1 TIME EACH DAY. Oral for 90 Active Envarsus XR 1 MG as directed Orally Active Extra Depth Orthopedic Shoes (1 Pair) with Customized Heat Molded Multidensity Innersoles (3 Pair) as directed Dx: NIDDM/Polyneuropathy (E11.42), Hammertoe Foot Deformity (M20.41,M20.42), Preulcerative Skin Lesion(s) (L85.1 Active Carvedilol 25 MG 1 tablet with food Orally Twice a day for 30 day(s) Active Entecavir 0.5 MG 1 tablet on an empty stomach Orally Once a day for 10 day(s) Active Doxazosin Mesylate 4 MG 1 tablet Orally Once a day for 30 day(s) Active NIFEdipine ER 60 MG 1 tablet on an empty stomach Orally Once a day for 30 day(s) Active Donepezil HCl 5 MG 1 tablet at bedtime Orally Once a day for 30 day(s) Active Allopurinol 100 MG 1 tablet Orally Once a day for 30 day(s) Active Immunizations Vaccine Route Administration Date Status Comme nts Influenza Unknown 07/20/2023 Administered Social History Tobacco Use: Social History Observation Description Date Details (start date - stop date) Never Smoker NA - NA Alcohol Screen Question Answer Notes Did you have a drink containing alcohol in the p ast year? No Points 0 Interpretation Negative Tobacco use other than smoking: Question Answer Notes Are you an other tobacco user? No Tobacco Control (Standard) Question Answer Notes Tobacco use: Nonsmoker Problems Problem Type SNOMED Code ICD Code Onset Dates Problem Status W/U Status Risk Notes Problem Acquired hammer toe of right foot (2065919570276517) Other hammer toe(s) (acquired), right foot (M20.41) Active confirmed Problem Acquired hammer toe of left foot (7189600689437148) Other hammer toe(s) (acquired), left foot (M20.42) Active confirmed Problem Chronic kidney disease due to type 2 diabetes mellitus (602824104093) 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.22) Active confirmed Problem Polyneuropathy due to type 2 diabetes mellitus (791891094) Type 2 diabetes mellitus with diabetic polyneuropathy (E11.42) Active confirmed Problem Juvenile osteochondrosis of the foot (593815758) 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) Active confirmed Problem Acquired deformity of right foot (42029441847996358 ) PlantarFlexion of metatarsal of right foot (M21.6X1) Active confirmed Problem Acquired deformity of left foot (61108634644374817 ) PlantarFlexion of metatarsal of left foot (M21.6X2) Active confirmed Vital Signs Blood pressure diastolic 60 mm Hg 12/26/2024 Height 5ft6in in 12/26/2024 Blood pressure systolic 160 mm Hg 12/26/2024 Weight 175 lbs 12/26/2024 BMI 28.24 kg/m2 12/26/2024 Procedures Procedure Date Ordered Date Performed Result Body Sit e 00377-UOMZMEB NAIL, 6 OR MORE 03/14/2024 N/A 40109-Spibefpe Plate 03/14/2024 N/A 17687-KUBW SKIN LESIONS, 2 TO 4 03/14/2024 N/A 26980-SBMFVNC NAIL, 6 OR MORE 06/13/2024 N/A 12196-JZDW SKIN LESIONS, 2 TO 4 06/13/2024 N/A 91602-QVWDRMS NAIL, 6 OR MORE 09/19/2024 N/A 78438-PNHD SKIN LESIONS, 2 TO 4 09/19/2024 N/A 80144-IMQOBQA NAIL, 6 OR MORE 12/26/2024 N/A 80643-OUVL SKIN LESIONS, 2 TO 4 12/26/2024 N/A Encounters Encounter Location Date Provider Diagnosis [facility] [place] [address] [place] [address] 03/14/2024 Leticia Black Type 2 diabetes mellitus with diabetic polyneuropathy E11.42 ; Type 2 diabetes mellitus with diabetic chronic kidney disease E11.22 ; Tinea unguium B35.1 ; Xerosis cutis L85.3 and Ingrown nail L60.[address] [address] 06/13/2024 Leticia Black Type 2 diabetes mellitus with diabetic polyneuropathy E11.42 ; Type 2 diabetes mellitus with diabetic chronic kidney disease E11.22 ; Tinea unguium B35.1 ; Other hammer toe(s) (acquired), left foot M20.42 and Other hammer toe(s) (acquired), right foot M20.[address] [address] 09/19/2024 Leticia Black Type 2 diabetes mellitus with diabetic polyneuropathy [...] foot M77.51 and Metatarsalgia, right foot M77.[address] [address] 12/26/2024 Elticia Black Type 2 diabetes mellitus with diabetic polyneuropathy [...] of intermetatarsal bursa of right foot M77.51 ; Metatarsalgia, right foot M77.41 ; Achilles tendinitis of left lower extremity M76.62 ; Pain of left heel M79.672 and Short Achilles tendon (acquired), left ankle M67.02 [facility] [address] [address] 08/19/2024 Leticia Dwyer Xerosis cutis L85.3 Assessments Encounter Date Diagnosis (ICD Code) Assessment Notes Treatment Notes Treatment Clinical Notes Section Notes 03/14/2024 Type 2 diabetes mellitus with diabetic chronic kidney disease (ICD-10 - E11.22) 03/14/2024 Type 2 diabetes mellitus with diabetic polyneuropathy (ICD-10 - E11.42) 06/13/2024 Type 2 diabetes mellitus with diabetic polyneuropathy (ICD-10 - E11.42) 08/19/2024 Xerosis cutis (ICD-10 - L85.3) 09/19/2024 Type 2 diabetes mellitus with diabetic chronic kidney disease (ICD-10 - E11.22) 09/19/2024 Type 2 diabetes mellitus with diabetic polyneuropathy (ICD-10 - E11.42) 12/26/2024 Type 2 diabetes mellitus with diabetic polyneuropathy (ICD-10 - E11.42) 12/26/2024 Type 2 diabetes mellitus with diabetic chronic kidney disease (ICD-10 - E11.22) 06/13/2024 Type 2 diabetes mellitus with diabetic chronic kidney disease (ICD-10 - E11.22) 09/19/2024 Tinea unguium (ICD-10 - B35.1) 03/14/2024 Tinea unguium (ICD-10 - B35.1) 03/14/2024 Xerosis cutis (ICD-10 - L85.3) 06/13/2024 Tinea unguium (ICD-10 - B35.1) 09/19/2024 Pain in left foot (ICD-10 - M79.672) 12/26/2024 Tinea unguium (ICD-10 - B35.1) 09/19/2024 Pain in left ankle and joints of left foot (ICD-10 - M25.572) 06/13/2024 Other hammer toe(s) (acquired), left foot (ICD-10 - M20.42) 03/14/2024 Ingrown nail (ICD-10 - L60.0) 12/26/2024 Pain in left foot (ICD-10 - M79.672) 12/26/2024 Pain in left ankle and joints of left foot (ICD-10 - M25.572) 09/19/2024 Bursitis of intermetatarsal bursa of left foot (ICD-10 - M77.52) 09/19/2024 Metatarsalgia of left foot (ICD-10 - M77.42) 06/13/2024 Other hammer toe(s) (acquired), right foot (ICD-10 - M20.41) Patient Educated with: DIABETIC FOOT CARE INSTRUCTIONS. pdf (DIABETIC FOOT CARE INSTRUCTIONS. pdf) 12/26/2024 Bursitis of intermetatarsal bursa of left foot (ICD-10 - M77.52) 09/19/2024 Pain in right foot (ICD-10 - M79.671) 12/26/2024 Metatarsalgia of left foot (ICD-10 - M77.42) 09/19/2024 Pain in right ankle and joints of right foot (ICD-10 - M25.571) 12/26/2024 Pain in right foot (ICD-10 - M79.671) 12/26/2024 Pain in right ankle and joints of right foot (ICD-10 - M25.571) 09/19/2024 Bursitis of intermetatarsal bursa of right foot (ICD-10 - M77.51) 09/19/2024 Metatarsalgia, right foot (ICD-10 - M77.41) 12/26/2024 Bursitis of intermetatarsal bursa of right foot (ICD-10 - M77.51) 12/26/2024 Metatarsalgia, right foot (ICD-10 - M77.41) 12/26/2024 Pain of left heel (ICD-10 - M79.672) 12/26/2024 Achilles tendinitis of left lower extremity (ICD-10 - M76.62) Patient Educated with: HEEL CORD STRETCHES.pdf (HEEL CORD STRETCHES.pdf ) Patient Educated with: RICE THERAPY.pdf (RICE THERAPY.pdf) 12/26/2024 Short Achilles tendon (acquired), left ankle (ICD-10 - M67.02) 03/14/2024 Other 09/19/2024 Other Plan Of Treatment Pending Test Test Name Order Date 70256-SKJFDSF NAIL, 6 OR MORE 09/01/2022 76229-RZTZJTR NAIL, 6 OR MORE 12/08/2022 72646-FLQIZDD NAIL, 6 OR MORE 03/09/2023 47032-WWULZFC NAIL, 6 OR MORE 12/11/2023 11386-ZNBSHMV NAIL, 6 OR MORE 03/14/2024 13208-CSNDMUB NAIL, 6 OR MORE 06/13/2024 02104-MWWZEXA NAIL, 6 OR MORE 09/19/2024 65576-VEUAMMX NAIL, 6 OR MORE 12/26/2024 78814-Pxmqmhiq Plate 03/09/2023 13591-Vnkgjods Plate 03/14/2024 57403-NOKV SKIN LESIONS, 2 TO 4 06/13/20 24 42155-HQID SKIN LESIONS, 2 TO 4 12/26/19 93118-JDUD SKIN LESIONS, 2 TO 4 09/19/20 24 88215-WJKQ SKIN LESIONS, 2 TO 4 03/14/20 24 34050-RPHD SKIN LESIONS, 2 TO 4 12/11/19 24 27056-FTZN SKIN LESIONS, 2 TO 4 03/09/20 23 60275-PIGO SKIN LESIONS, 2 TO 4 12/08/19 Next Appt Details Provider Name:Leticia Dwyer , 03/31/2025 09:30:00 AM, [address] [place], [address], Insurance Providers Payer Name Payer Address Payer Phone Subscriber Number Group Number Insured Name Patient Relationship to Insured Coverage Start Date Coverage End Date Medicare National Govt Sv[employer] [address] [place] [phone] [id number] Maninder Pack Self - patient is the insured [employer] Shield [address] [place] [address] [phone] [id number] 1 Maninder Pack Self - patient is the insured Medical (General) History Medical History History ICD Code Alzheimers disease Gall bladder problems Glaucoma Gout Hepatitis C High blood pressure Kidney disease Stroke Sleep apnea Neuropathy Surgical History Surgery Date(Month/Year) kidney transplant 09/30/2021 gall bladder
--- OUTSIDE RECORDS SUMMARY | 2025-01-01 07:00 | XMS_ITS | Encounter Summary ---
Author Organization [facility], Address [address] [place] [address] Phone Care Team Providers Care Disability Counselor Name Role Phone Jonatan Anthony MD Primary Care Provider [phone] Reason for Visit * Reason Comments Med Refill Encounter Details Date Type Department Care Team (Late Contact Info) Description 04/23/2023 [facility]ill [facility] [address] [place] [address] Tyrell Oden MD [address] [place] [address] [place] [address] Social History Tobacco Use Types [...] Office Visit [facility] [address] [place] [address] Tyrell Oden MD [address] [place] [address] [place] [address] documented as of this encounter Visit Diagnoses Not on filedocumented in this encounter Care Teams Disability Counselor Relationship Specialty Start Date End Date Jonatan Anthony MD [facility] [address] [place] PCP - General Internal Medicine 04/29/22 documented as of this encounter
--- OUTSIDE RECORDS SUMMARY | 2025-01-01 07:00 | XMS_ITS | Encounter Summary ---
Author Organization [facility] Address [address] [place] [address] Phone Care Team Providers Care Movie Writer Name Role Phone Jonatan Anthony MD Primary Care Provider [phone] Encounter Details Date Type Department Care Team ([facility] Contact Info) Description 01/06/2023 Documentation Only [facility] [place], [address] [place] [address] Essence King [place] [address] [place] [id number] Social History Tobacco Use Types Packs/Day Years [...] Visit [facility] [place] [address] [place] [address] Tyrell Oden MD [address] [place] [address] documented as of this encounter Visit Diagnoses Not on filedocumented in this encounter Care Teams Movie Writer Relationship Specialty Start Date End Date Jonatan Anthony MD [facility] [place] [address] [place], [place] PCP - General Internal Medicine 04/29/22 documented as of this encounter
--- OUTSIDE RECORDS SUMMARY | 2025-01-01 07:00 | XMS_ITS | Encounter Summary ---
Author Organization [facility] Address [address] [place] [address] Phone Care Team Providers Care Hide Cleaner Name Role Phone Jonatan Anthony MD Primary Care Provider [phone] Encounter Details Date Type Department Care Team (Late Contact Info) Description 06/13/2023 Documentation Only [facility] [address] [place] [address] Christopher Caicedo PA Social History [...] Visit [facility] [address] [place] [address] Tyrell Oden MD [address] [place] [address] [place] [address] documented as of this encounter Visit Diagnoses Not on filedocumented in this encounter Care Teams Hide Cleaner Relationship Specialty Start Date End Date Jonatan Anthony MD [facility] [place] [address] [place], [place] PCP - General Internal Medicine 04/29/22 documented as of this encounter
--- OUTSIDE RECORDS SUMMARY | 2025-01-01 07:00 | XMS_ITS | Encounter Summary ---
Author Organization [facility] Address [address] [place] [address] Phone Care Team Providers Care Autism Motor Specialist Name Role Phone Jonatan Anthony MD Primary Care Provider [phone] Encounter Details Date Type Department Care Team ([facility] Contact Info) Description 09/17/2024 Documentation Only [facility] [place], [address] [place] [address] Maddy Nunez [place] [address] [place] [address] Social History Tobacco Use Types [...] Visit [facility] [place] [address] [place] [address] Tyrell Oden MD [address] [place] [address] documented as of this encounter Visit Diagnoses Not on filedocumented in this encounter Care Teams Autism Motor Specialist Relationship Specialty Start Date End Date Jonatan Anthony MD [facility] [place] [address] [place] PCP - General Internal Medicine 04/29/22 documented as of this encounter
--- OUTSIDE RECORDS SUMMARY | 2025-01-01 07:00 | XMS_ITS | Encounter Summary ---
Author Organization [facility], Address [address] [place] [address] Phone Care Team Providers Care Dobby Loom Fixer Name Role Phone Jonatan Anthony MD Primary Care Provider [phone] Reason for Visit * Reason Comments Med Refill Encounter Details Date Type Department Care Team (Late Contact Info) Description 03/01/2022 Refill [facility] [address] [place] [address] Tyrell Oden MD [address] [place] [address] [place] [address] Social History Tobacco Use Types [...] Office Visit [facility] [address] [place] [address] Tyrell Oden MD [address] [place] [address] [place] [address] documented as of this encounter Visit Diagnoses Not on filedocumented in this encounter Care Teams Dobby Loom Fixer Relationship Specialty Start Date End Date Jonatan Anthony MD [facility] [address] [place] PCP - General Internal Medicine 04/29/22 documented as of this encounter
--- OUTSIDE RECORDS SUMMARY | 2025-01-01 07:00 | XMS_ITS | Encounter Summary ---
Author Organization [facility] Address [address] [place] [address] Phone Care Team Providers Care Photo Machine Operator Name Role Phone Jonatan Anthony MD Primary Care Provider [phone] Encounter Details Date Type Department Care Team (Late Contact Info) Description 02/09/2023 Documentation Only [facility] [address] [place] [address] Christopher Caicedo PA Social History [...] Visit [facility] Of [address] [place] [address] Tyrell Oden MD [address] [place] [address] [place] [address] documented as of this encounter Visit Diagnoses Not on filedocumented in this encounter Care Teams Photo Machine Operator Relationship Specialty Start Date End Date Jonatan Anthony MD [facility] [place] [address] [place], [place] PCP - General Internal Medicine 04/29/22 documented as of this encounter
--- OUTSIDE RECORDS SUMMARY | 2025-01-01 07:00 | XMS_ITS | Encounter Summary ---
Author Organization [facility], Address [address] [place] [address] Phone Care Team Providers Care Training Mgr Name Role Phone Jonatan Anthony MD Primary Care Provider [phone] Reason for Visit * Reason Comments Med Refill Encounter Details Date Type Department Care Team (Late Contact Info) Description 02/24/2023 Refill [facility] [address] [place] [address] Christopher Caicedo PA Social History [...] Upcoming Encounters Date Type Department Care Team ([facility] Contact Info) Description 02/14/2025 11:30 AM EDT Office Visit [facility] [address] [place] [address] Tyrell Oden MD [address] [place] [address] [place] [address] documented as of this encounter Visit Diagnoses Not on filedocumented in this encounter Care Teams Training Mgr Relationship Specialty Start Date End Date Jonatan Anthony MD [facility]NAL [address] [place] PCP - General Internal Medicine 04/29/22 documented as of this encounter
--- OUTSIDE RECORDS SUMMARY | 2025-01-01 07:00 | XMS_ITS | Clinical Summary ---
Author Organization [facility], Address [address] [place] [address] Phone Care Team Providers Care Oxygen Furnace Operator Name Role Phone Jonatan Anthony MD Primary Care Provider [phone] Allergies Active Allergy Reactions Criticality Noted Date Comments Penicillins Swelling High 10/18/2021 Pravastatin Other (see comments) High 10/18/2021 Weakness/ muscle pain Medications docusate sodium (COLACE) 100 MG capsule Take 100 mg by mouth 3 Active folic acid (FOLVITE) 1 MG tabletIndications :Long-term drug therapy TAKE ONE TABLET BY MOUTH ONCE DAILY 30 tablet 3 3 Active donepezil (Aricept) 10 MG tablet Take 1 tablet (10 mg total) by mouth every night 30 tablet 11 3 Active cinacalcet (SENSIPAR) 30 MG tablet Take 1 tablet (30 mg total) by mouth in the morning and 1 tablet (30 mg total) in the evening. 60 tablet 11 4 03/26/20 25 Active doxazosin (CARDURA) 4 MG tablet Take 1 tablet (4 mg total) by mouth at bed time 90 tablet 3 4 Active ezetimibe (Zetia) 10 MG tablet Take 1 tablet (10 mg total) by mouth 1 (one) time each day 30 tablet 11 4 05/03/20 25 Active gabapentin (NEURONTIN) 300 MG capsule Take 1 capsule (300 mg total) by mouth every night For neuropathy and insomnia. 30 capsule 4 06/24/20 25 Active carvedilol (COREG) 25 MG tablet Take 1 tablet (25 mg total) by mouth in the morning and 1 tablet (25 mg total) in the evening. 180 tablet 3 4 07/03/20 25 Active Jardiance 10 MG tablet TAKE 1 TAB BY MOUTH TIME EACH DAY IN THE MORNING 90 tablet 3 4 Active allopurinol (ZYLOPRIM) 100 MG tablet Take 1 tablet (100 mg total) by mouth 1 (one) time each day 90 tablet 3 4 Active NIFEdipine XL (PROCARDIA XL) 60 MG 24 hr tablet Take 1 tablet (60 mg total) by mouth 1 (one) time each day Do not crush, chew, or split. 30 tablet 11 4 09/09/20 25 Active Belatacept 250 MG reconstituted solution Infuse 2 vials into a venous catheter every 28 (twenty-eight) days Administer 5mg per kg; pt weight as of 09/09/24 81.5 kg 2 each 11 4 09/19/20 25 Active lisinopril 20 MG tablet Take 1 tablet (20 mg total) by mouth 1 (one) time each day 30 tablet 11 4 10/11/20 25 Active mycophenolate (MYFORTIC) 360 MG EC tablet Take 1 tablet (360 mg total) by mouth in the morning and 1 tablet (360 mg total) in the evening. 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 Vitamin D deficiency 01/06/2022 Type 2 diabetes mellitus 01/06/2022 Essential hypertension 01/06/2022 Memory impairment 01/06/2022 Mixed hyperlipidemia 01/06/2022 Transfusion of blood product declined for religi ous reason 01/06/2022 Proteinuria 01/06/2022 Kidney replaced by transplant 01/06/2022 Personal history of immunosuppression therapy Gout 02/01/2019 Benign hypertensive renal disease 02/01/2019 Resolved Problems Problem Noted Date Diagnosed Date Resolved Date Acquired deformity of left foot 06/19/2023 10/20/2023 Acquired deformity of right foot 06/19/2023 10/20/2023 Ex-smoker 01/06/2022 01/06/2022 Nodule of lung 01/06/2022 01/06/2022 Obstructive sleep apnea syndrome 01/06/2022 01/06/2022 End stage renal disease 10/25/202112/21 Dependence on renal dialysis 10/25/2021 01/06/2022 Renal disorder due to type 2 diabetes mellitus 02/01/2019 01/06/2022 Chronic kidney disease stage 4 10/20/2023 Encounters Date Type Department Care Team Description 12/13/2024 10:00 AM EST Office Visit [facility] [address] [place] [address] Tyrell Oden MD Kidney replaced by transplant (Primary Dx); Personal history of immunosuppression therapy; Stage 3b chronic kidney disease (HCC); Type 2 diabetes mellitus with diabetic chronic kidney disease (HCC); Essential hypertension; Anemia in chronic kidney disease 12/12/2024 Orders Only [facility] [address] [place] [address] Christopher Caicedo PA 11/29/2024 Refill [facility] [address] [place] [address] Christopher Caicedo PA 11/01/2024 Telephone [facility] [address] [place] [address] Essence King MA 10/28/2024 Documentation Only [facility] [address] [place] [address] Maddy Nunez MA 10/18/2024 Telephone [facility] [address] [place] [address] Maddy Nunez MA 10/11/2024 9:30 AM EST Office Visit [facility] [address] [place] [address] Christopher Caicedo PA Kidney replaced by transplant (Primary Dx); Personal history of immunosuppression therapy; Stage 3b chronic kidney disease (HCC) from Last 3 Months Immunizations Name Administration Dates Next Due DT 10/18/2007 Hep A, Unspecified 02/18/2000,02/12/1999 Hep B, Unspecified 09/11/2000,03/20/2000, 000 Influenza Split High Dose Pr eservative Free IM 08/13/2018,09/13/2017 Influenza, Unspecified 09/04/2014,01/23/2014, Moderna SARS-COV-2 01/21/2022,02/12/2021, 021 Pneumococcal Conjugate 13-Valent 01/17/2017,08/21 Pneumococcal Polysaccharide 09/07/2007 Shingrix 05/16/2018,03/16/2018 Tdap 01/23/2014 Zoster 09/06/2013 Family History Medical History Relation Comments Dementia Mother Diabetes Mother diabetes mellitu s 2, Hypertension Sibling Relation Status Comments Father Mother Sibling Social History Tobacco Use Types Packs/Day Years Used Date Smoking Tobacco: Never Alcohol Use Standard Drinks/Week Comments Yes 0 (1 standard drink = 0.6 oz pure alcohol) Alcoholic Drinks/day: Occasional social drink Sex and Gender Information Value Date Recorded Sex Assigned at Not on file Legal Sex Male 5:15 PM EST Gender Identity Not on file Sexual Orientation Not on file Last Filed Vital Signs Vital Sign Reading Time Taken Comments Blood Pressure 148/60 12/13/2024 10:26 AM EST Pulse 86 09/09/2024 9:52 AM EDT Temperature 36.6 ??C (97.8 ??F) 09/20/2023 9:50 AM ED T Respiratory Rate - - Oxygen Saturation 99% 09/20/2023 9:50 AM EDT Inhaled Oxygen Concentration - - Weight 80.3 kg (177 lb) 12/13/2024 10:26 AM EST Height 167.6 cm (5' 6 ) 10/11/2024 9:39 AM EST Body Mass Index 28.57 10/11/2024 9:39 AM EST Plan of Treatment Upcoming Encounters Date Type Department Care Team (Late st Contact Info) Description 02/14/2025 11:30 AM EDT [facility] [address] [place] [address] Tyrell Oden MD [address] [place] [address] [place] [id number] Health Maintenance Due Date Last Done Comments Pneumococcal Vaccine: 65+ Years (3 of 3 - PPSV23 or PCV20) 03/14/2017 01/17/2017, 09/12/2016, 09/07/2007 Diabetes: Ophthalmology Exam 12/20/2020 Diabetes: Pedal Pulse Checked 12/20/2020 Diabetes: Sensory Foot Exam 12/20/2020 Diabetes: Visual Foot Exam 12/20/2020 Colonoscopy (Post-Transplant Patient) 10/06/2021 Influenza Vaccine (#1) 2024 3, 08/13/2018, 09/13/2017, Additional history exists Diabetes: Hemoglobin A1C 01/09/2025 024, 05/01/2024, 10/26/2023, Additional history exists Hepatitis B Vaccine Aged Out 09/11/2000, 03/20/2000, 02/18/2000 No longer eligible based on patient's age to complete this topic Procedures Procedure Name Priority Date/Time Associated Diagnosis Comments PROTEIN / CREATININE RATIO, URINE Routine 12/12/2024 3:14 PM EST URINALYSIS, COMPLETE Routine 12/12/2024 3:14 PM EST MICROSCOPIC EXAMINATION - DO NOT USE Routine 12/12/2024 3:14 PM EST MYCOPHENOLIC ACID AND METABO. Routine 12/12/2024 8:23 AM EST Kidney replaced by transplant Personal history of immunosuppression therapy Stage 3b chronic kidney disease (HCC) Type 2 diabetes mellitus with diabetic chronic kidney disease (HCC) Anemia in chronic kidney disease Proteinuria, not otherwise specified CREATINE KINASE Routine 12/12/2024 8:23 AM EST Kidney replaced by transplant Personal history of immunosuppression therapy Stage 3b chronic kidney disease (HCC) Type 2 diabetes mellitus with diabetic chronic kidney disease (HCC) Anemia in chronic kidney disease Proteinuria, not otherwise specified ALT Routine 12/12/2024 8:23 AM EST Kidney replaced by transplant Personal history of immunosuppression therapy Stage 3b chronic kidney disease (HCC) Type 2 diabetes mellitus with diabetic chronic kidney disease (HCC) Anemia in chronic kidney disease Proteinuria, not otherwise specified AST Routine 12/12/2024 8:23 AM EST Kidney replaced by transplant Personal history of immunosuppression therapy Stage 3b chronic kidney disease (HCC) Type 2 diabetes mellitus with diabetic chronic kidney disease (HCC) Anemia in chronic kidney disease Proteinuria, not otherwise specified URINALYSIS, COMPLETE Routine 12/12/2024 8:23 AM EST Kidney replaced by transplant Personal history of immunosuppression therapy Stage 3b chronic kidney disease (HCC) Type 2 diabetes mellitus with diabetic chronic kidney disease (HCC) Anemia in chronic kidney disease Proteinuria, not otherwise specified RENAL FUNCTION PANEL Routine 12/12/2024 8:23 AM EST Kidney replaced by transplant Personal history of immunosuppression therapy Stage 3b chronic kidney disease (HCC) Type 2 diabetes mellitus with diabetic chronic kidney disease (HCC) Anemia in chronic kidney disease Proteinuria, not otherwise specified CBC AND DIFFERENTIAL Routine 12/12/2024 8:23 AM EST Kidney replaced by transplant Personal history of immunosuppression therapy Stage 3b chronic kidney disease (HCC) Type 2 diabetes mellitus with diabetic chronic kidney disease (HCC) Anemia in chronic kidney disease Proteinuria, not otherwise specified POTASSIUM Routine 10/24/2024 10:21 AM EST Kidney replaced by transplant Personal history of immunosuppression therapy Stage 3b chronic kidney disease (HCC) REFLEXIVE URINE CULTURE (HC) Routine 10/09/2024 10:12 AM EST BK VIRUS, QUANTITATIVE PCR, URINE Routine 10/09/2024 10:12 AM EST BK VIRUS, DNA, URINE, QUANTITATIVE Routine 10/09/2024 10:12 AM EST Kidney replaced by transplant Personal history of immunosuppression therapy Stage 3b chronic kidney disease (HCC) Type 2 diabetes mellitus with diabetic chronic kidney disease (HCC) Other iron deficiency anemia Idiopathic gout, not otherwise specified Vitamin D deficiency, not otherwise specified Mixed hyperlipidemia BK virus nephropathy Hypomagnesemia Hypervolemia Poor glycemic control BK VIRUS, DNA, QUANTITATIVE Routine 10/09/2024 10:12 AM EST Kidney replaced by transplant Personal history of immunosuppression therapy Stage 3b chronic kidney disease (HCC) Type 2 diabetes mellitus with diabetic chronic kidney disease (HCC) Other iron deficiency anemia Idiopathic gout, not otherwise specified Vitamin D deficiency, not otherwise specified Mixed hyperlipidemia BK virus nephropathy Hypomagnesemia Hypervolemia Poor glycemic control PROTEIN / CREATININE RATIO, URINE Routine 10/09/2024 10:12 AM EST Kidney replaced by transplant Personal history of immunosuppression therapy Stage 3b chronic kidney disease (HCC) Type 2 diabetes mellitus with diabetic chronic kidney disease (HCC) Other iron deficiency anemia Idiopathic gout, not otherwise specified Vitamin D deficiency, not otherwise specified Mixed hyperlipidemia BK virus nephropathy Hypomagnesemia Hypervolemia Poor glycemic control URINALYSIS, COMPLETE Routine 10/09/2024 10:12 AM EST Kidney replaced by transplant Personal history of immunosuppression therapy Stage 3b chronic kidney disease (HCC) Type 2 diabetes mellitus with diabetic chronic kidney disease (HCC) Other iron deficiency anemia Idiopathic gout, not otherwise specified Vitamin D deficiency, not otherwise specified Mixed hyperlipidemia BK virus nephropathy Hypomagnesemia Hypervolemia Poor glycemic control HEMOGLOBIN A1C Routine 10/09/2024 10:12 AM EST Kidney replaced by transplant Personal history of immunosuppression therapy Stage 3b chronic kidney disease (HCC) Type 2 diabetes mellitus with diabetic chronic kidney disease (HCC) Other iron deficiency anemia Idiopathic gout, not otherwise specified Vitamin D deficiency, not otherwise specified Mixed hyperlipidemia BK virus nephropathy Hypomagnesemia Hypervolemia Poor glycemic control ALT Routine 10/09/2024 10:12 AM EST Kidney replaced by transplant Personal history of immunosuppression therapy Stage 3b chronic kidney disease (HCC) Type 2 diabetes mellitus with diabetic chronic kidney disease (HCC) Other iron deficiency anemia Idiopathic gout, not otherwise specified Vitamin D deficiency, not otherwise specified Mixed hyperlipidemia BK virus nephropathy Hypomagnesemia Hypervolemia Poor glycemic control AST Routine 10/09/2024 10:12 AM EST Kidney replaced by transplant Personal history of immunosuppression therapy Stage 3b chronic kidney disease (HCC) Type 2 diabetes mellitus with diabetic chronic kidney disease (HCC) Other iron deficiency anemia Idiopathic gout, not otherwise specified Vitamin D deficiency, not otherwise specified Mixed hyperlipidemia BK virus nephropathy Hypomagnesemia Hypervolemia Poor glycemic control CREATINE KINASE Routine 10/09/2024 10:12 AM EST Kidney replaced by transplant Personal history of immunosuppression therapy Stage 3b chronic kidney disease (HCC) Type 2 diabetes mellitus with diabetic chronic kidney disease (HCC) Other iron deficiency anemia Idiopathic gout, not otherwise specified Vitamin D deficiency, not otherwise specified Mixed hyperlipidemia BK virus nephropathy Hypomagnesemia Hypervolemia Poor glycemic control LIPID PANEL Routine 10/09/2024 10:12 AM EST Kidney replaced by transplant Personal history of immunosuppression therapy Stage 3b chronic kidney disease (HCC) Type 2 diabetes mellitus with diabetic chronic kidney disease (HCC) Other iron deficiency anemia Idiopathic gout, not otherwise specified Vitamin D deficiency, not otherwise specified Mixed hyperlipidemia BK virus nephropathy Hypomagnesemia Hypervolemia Poor glycemic control MAGNESIUM Routine 10/09/2024 10:12 AM EST Kidney replaced by transplant Personal history of immunosuppression therapy Stage 3b chronic kidney disease (HCC) Type 2 diabetes mellitus with diabetic chronic kidney disease (HCC) Other iron deficiency anemia Idiopathic gout, not otherwise specified Vitamin D deficiency, not otherwise specified Mixed hyperlipidemia BK virus nephropathy Hypomagnesemia Hypervolemia Poor glycemic control TSH Routine 10/09/2024 10:12 AM EST Kidney replaced by transplant Personal history of immunosuppression therapy Stage 3b chronic kidney disease (HCC) Type 2 diabetes mellitus with diabetic chronic kidney disease (HCC) Other iron deficiency anemia Idiopathic gout, not otherwise specified Vitamin D deficiency, not otherwise specified Mixed hyperlipidemia BK virus nephropathy Hypomagnesemia Hypervolemia Poor glycemic control T4, FREE Routine 10/09/2024 10:12 AM EST Kidney replaced by transplant Personal history of immunosuppression therapy Stage 3b chronic kidney disease (HCC) Type 2 diabetes mellitus with diabetic chronic kidney disease (HCC) Other iron deficiency anemia Idiopathic gout, not otherwise specified Vitamin D deficiency, not otherwise specified Mixed hyperlipidemia BK virus nephropathy Hypomagnesemia Hypervolemia Poor glycemic control URIC ACID Routine 10/09/2024 10:12 AM EST Kidney replaced by transplant Personal history of immunosuppression therapy Stage 3b chronic kidney disease (HCC) Type 2 diabetes mellitus with diabetic chronic kidney disease (HCC) Other iron deficiency anemia Idiopathic gout, not otherwise specified Vitamin D deficiency, not otherwise specified Mixed hyperlipidemia BK virus nephropathy Hypomagnesemia Hypervolemia Poor glycemic control FERRITIN Routine 10/09/2024 10:12 AM EST Kidney replaced by transplant Personal history of immunosuppression therapy Stage 3b chronic kidney disease (HCC) Type 2 diabetes mellitus with diabetic chronic kidney disease (HCC) Other iron deficiency anemia Idiopathic gout, not otherwise specified Vitamin D deficiency, not otherwise specified Mixed hyperlipidemia BK virus nephropathy Hypomagnesemia Hypervolemia Poor glycemic control IRON PANEL (FE, TIBC, TSAT) Routine 10/09/2024 10:12 AM EST Kidney replaced by transplant Personal history of immunosuppression therapy Stage 3b chronic kidney disease (HCC) Type 2 diabetes mellitus with diabetic chronic kidney disease (HCC) Other iron deficiency anemia Idiopathic gout, not otherwise specified Vitamin D deficiency, not otherwise specified Mixed hyperlipidemia BK virus nephropathy Hypomagnesemia Hypervolemia Poor glycemic control VITAMIN D 25 HYDROXY Routine 10/09/2024 10:12 AM EST Kidney replaced by transplant Personal history of immunosuppression therapy Stage 3b chronic kidney disease (HCC) Type 2 diabetes mellitus with diabetic chronic kidney disease (HCC) Other iron deficiency anemia Idiopathic gout, not otherwise specified Vitamin D deficiency, not otherwise specified Mixed hyperlipidemia BK virus nephropathy Hypomagnesemia Hypervolemia Poor glycemic control PTH, INTACT Routine 10/09/2024 10:12 AM EST Kidney replaced by transplant Personal history of immunosuppression therapy Stage 3b chronic kidney disease (HCC) Type 2 diabetes mellitus with diabetic chronic kidney disease (HCC) Other iron deficiency anemia Idiopathic gout, not otherwise specified Vitamin D deficiency, not otherwise specified Mixed hyperlipidemia BK virus nephropathy Hypomagnesemia Hypervolemia Poor glycemic control RENAL FUNCTION PANEL Routine 10/09/2024 10:12 AM EST Kidney replaced by transplant Personal history of immunosuppression therapy Stage 3b chronic kidney disease (HCC) Type 2 diabetes mellitus with diabetic chronic kidney disease (HCC) Other iron deficiency anemia Idiopathic gout, not otherwise specified Vitamin D deficiency, not otherwise specified Mixed hyperlipidemia BK virus nephropathy Hypomagnesemia Hypervolemia Poor glycemic control CBC AND DIFFERENTIAL Routine 10/09/2024 10:12 AM EST Kidney replaced by transplant Personal history of immunosuppression therapy Stage 3b chronic kidney disease (HCC) Type 2 diabetes mellitus with diabetic chronic kidney disease (HCC) Other iron deficiency anemia Idiopathic gout, not otherwise specified Vitamin D deficiency, not otherwise specified Mixed hyperlipidemia BK virus nephropathy Hypomagnesemia Hypervolemia Poor glycemic control MICROSCOPIC EXAMINATION - DO NOT USE Routine 10/09/2024 10:12 AM EST from Last 3 Months Results * (ABNORMAL) Urinalysis, Complete w/reflex to Culture (12/12/2024 3:14 PM EST) Only the most recent of2 resultswithin the time period is included. Specific [place], Urine 1.026 1.005 - 1.030 [facility] pH Urine 5.5 5.0 - 7.5 [facility] Color, Urine Yellow Yellow [facility] Appearance Urine Clear Clear [facility] WBC Esterase Urine Negative Negative [facility] Protein, Ur 1+(A) Negative/Tra ce [facility] Glucose, Ur 3+(A) Negative [facility] Ketones, Urine Negative Negative [facility] Blood Urine Negative Negative [facility] Bilirubin Urine Negative Negative [facility] Urobilinogen Urine 0.2 0.2 - 1.0 mg/dL [facility] Nitrite, Urine Negative Negative [facility] [phone] Microscopic Examination See below: [facility] [phone] Comment:Microscopic was shin cated and was performed. URINALYSIS REFLEX Comment [facility] [phone] Comment:This specimen will n ot reflex to a Urine Culture. 12/12/2024 3:14 PM EST 12/12/2024 Christopher THOMAS [facility] URINE ORDERABLES Final Re sult [facility] [address] [place] [address] * Microscopic Examination (12/12/2024 3:14 PM EST) Only the most recent of2 resultswithin the time period is included. WBC, Urine None seen 0 - 5 /hpf [facility] RBC, Urine None seen 0 - 2 /hpf [facility] Squamous Epithelial, Urine None seen 0 - 10 /hpf [facility] Casts None seen None seen /lpf [facility] Bacteria, Urine None seen None seen/Few [facility] 12/12/2024 3:14 PM EST 12/12/2024 Christopher THOMAS [facility] MICROBIOLOGY - GENERAL OR DERABLES Final Result [facility] [address] [place] [address] * (ABNORMAL) Protein, Total, Random Urine w/Creatinine (Protein/Creat Ratio) (12/12/2024 3:14 PM EST) Only the most recent of2 resultswithin the time period is included. Creatinine, Ur 115.7 Not Estab. mg/dL [facility] Protein, Ur 37.9 Not Estab. mg/dL [facility] Urine Protein/Creati nine Ratio 328(H) 0 - 200 mg/g [facility] 12/12/2024 3:14 PM EST 12/12/2024 Christopher THOMAS LAB URINE ORDERABLES Final Re sult [facility] [address] [place] [address] * Mycophenolic Acid (12/12/2024 8:23 AM EST) Pathologist [facility] Mycophenolic Acid 1.2 1.0 - 3.5 ug/mL [facility] Mycophenolic Acid Glucuronide 63 15 - 125 ug/mL [facility] Blood (Blood, Venous) 12/12/2024 8:23 AM EST 12/12/2024 Narrative [facility] - 12/17/2024 12:06 PM EST Test(s) 256459-Gaogjioahwla Acid; 081821- Mycophenolic Acid Glucuronide was developed and its performance characteristics determined by [employer]. It has not been cleared or approved by the Food and Drug Administration. Christopher THOMAS LAB BLOOD ORDERABLES Final Re sult [facility] [address] [place] [phone] * (ABNORMAL) CBC and Differential (12/12/2024 8:23 AM EST) Only the most recent of2 resultswithin the time period is included. WBC 3.2(L) 3.4 - 10.8 x10E3/uL [facility] RBC 4.27 4.14 - 5.80 x10E6/uL [facility] Hemoglobin 12.7(L) 13.0 - 17.7 g/dL [facility] Hematocrit 39.6 37.5 - 51.0 % [facility] MCV 93 79 - 97 fL [facility] MCH 29.7 26.6 - 33.0 pg [facility] MCHC 32.1 31.5 - 35.7 g/dL [facility] RDW 13.0 11.6 - 15.4 % [facility] Platelets 184 150 - 450 x10E3/uL [facility] Neutrophils Relative 44 Not Estab. % [facility] Lymphocytes Relative 38 Not Estab. % [facility] Monocytes 10 Not Estab. % [facility] Eosinophils Relative 4 Not Estab. % [facility] Basophils Relative 2 Not Estab. % [facility] Neutrophils Absolute 1.4 1.4 - 7.0 x10E3/uL [facility] Lymphocytes Absolute 1.2 0.7 - 3.1 x10E3/uL [facility] Monocytes Absolute 0.3 0.1 - 0.9 x10E3/uL [facility] Eosinophils Absolute 0.1 0.0 - 0.4 x10E3/uL [facility] Basophils Absolute 0.1 0.0 - 0.2 x10E3/uL [facility] Immature Granulocytes 2 Not Estab. % [facility] Immature Grans (Absolute) 0.1 0.0 - 0.1 x10E3/uL [facility] Blood (Blood, Venous) 12/12/2024 8:23 AM EST 12/12/2024 Christopher THOMAS LAB BLOOD ORDERABLES Final Re sult Performing Organization Address City/[facility]/ZIP Co de Phone Number [facility] [address] [place] [address] * ALT (12/12/2024 8:23 AM EST) Only the most recent of2 resultswithin the time period is included. ALT (SGPT) 21 0 - 44 IU/L [facility] Blood (Blood, Venous) 12/12/2024 8:23 AM EST 12/12/2024 Christopher THOMAS LAB BLOOD ORDERABLES Final Re sult Performing Organization Address [facility] Co de Phone Number [facility] [address] [place] [address] * AST (12/12/2024 8:23 AM EST) Only the most recent of2 resultswithin the time period is included. AST (SGOT) 22 0 - 40 IU/L [facility] Blood (Blood, Venous) 12/12/2024 8:23 AM EST 12/12/2024 Christopher THOMAS LAB BLOOD ORDERABLES Final Re sult Performing Organization Address City[facility]/ZIP Co de Phone Number [facility] [address] [place] [address] * CK (12/12/2024 8:23 AM EST) Only the most recent of2 resultswithin the time period is included. Creatine Kinase (CK/CPK) 41 41 - 331 U/L [facility] Blood (Blood, Venous) 12/12/2024 8:23 AM EST 12/12/2024 Christopher THOMAS LAB BLOOD ORDERABLES Final Re sult [facility] [address] [place] [address] * (ABNORMAL) Renal Function Panel (12/12/2024 8:23 AM EST) Only the most recent of2 resultswithin the time period is included. Glucose 150(H) 70 - 99 mg/dL [facility] BUN 35(H) 8 - 27 mg/dL [facility] Creatinine 1.75(H) 0.76 - 1.27 mg/dL [facility] eGFR CKD-EPI CR 2020 40(L) >59 mL/min/1.7 3 [facility] BUN/Creatinine Ratio 20 10 - 24 [facility] Sodium 142 134 - 144 mmol/L [facility] Potassium 4.3 3.5 - 5.2 mmol/L [facility] Chloride 110(H) 96 - 106 mmol/L [facility] Bicarbonate (CO2) 20 20 - 29 mmol/L [facility] Calcium 10.6(H) 8.6 - 10.2 mg/dL [facility] Comment:Verified by repeat analysis Albumin 3.9 3.8 - 4.8 g/dL [facility] Phosphorus 2.9 2.8 - 4.1 mg/dL [facility] Blood (Blood, Venous) 12/12/2024 8:23 AM EST 12/12/2024 Christopher THOMAS LAB BLOOD ORDERABLES Final Re sult Performing Organization Address [facility]/ZIP Co de Phone Number [facility] [address] [place] [address] * Potassium (10/24/2024 10:21 AM EST) Potassium 4.5 3.5 - 5.2 mmol/L [facility] Blood (Blood, Venous) 10/24/2024 10:21 AM EST 10/24/2024 Christopher THOMAS LAB BLOOD ORDERABLES Final Re sult Performing Organization Address [facility] Co de Phone Number [facility] [address] [place] [address] * BK Virus, Quantitative PCR, Urine (10/09/2024 10:12 AM EST) BKV DNA # Ur PCR 1,430,000 Negative IU/mL [facility] Comment:The linear range of the assay is 200 - 100,000,000 IU/ml log10 BK Qn PCR Ur 6.155 log10 IU/mL [facility] 10/09/2024 10:1 2 AM EST 10/09/2024 Christopher THOMAS LAB URINE ORDERABLES Final Re sult Performing Organization Address [facility]/ZIP Co de Phone Number [facility] [address] [place] [address] * Reflexive Urine Culture (10/09/2024 10:12 AM EST) Culture Result, Urine Final report [facility] Result No growth [facility] 10/09/2024 10:1 2 AM EST 10/09/2024 Christopher THOMAS LAB [id number] SOLICITED RESULTS Final Result [facility] [address], [address] [place] [address] * TSH (10/09/2024 10:12 AM EST) TSH 1.270 0.450 - 4.500 uIU/mL [facility] Blood 10/09/2024 10:1 2 AM EST 10/09/2024 Christopher THOMAS LAB BLOOD ORDERABLES Final Re sult [facility] [address] [place] [address] * (ABNORMAL) Iron Panel (Fe, TIBC, TSAT) (10/09/2024 10:12 AM EST) UIBC 165 111 - 343 ug/dL [facility] TIBC 237(L) 250 - 450 ug/dL [facility] Iron 72 38 - 169 ug/dL [facility] Iron Saturation (TSat) 30 15 - 55 % [facility] Blood (Blood, Venous) 10/09/2024 10:12 AM EST 10/09/2024 Christopher THOMAS LAB BLOOD ORDERABLES Final Re sult [facility] [address] [place] [address] * BK Virus Urine, Quant PCR (10/09/2024 10:12 AM EST) BK VIRUS PCR, QUANT, U See Final Results Negative IU/mL [facility] Comment:The linear range of the assay is 200 - 100,000,000 IU/ml Urine (Urine, Clean Catch) 10/09/2024 10:12 AM EST 10/09/2024 Christopher THOMAS LAB URINE ORDERABLES Final Re sult Performing Organization Address [facility] Co de Phone Number [facility] [address] [place] [address] * BK Virus DNA, Quant PCR (10/09/2024 10:12 AM EST) BK VIRUS DNA, PCR 53 Negative IU/mL [facility] Comment:The linear range of the assay is 22 - 100,000,000 IU/mL. log10 BK Qn PCR, Plasma or Serum 1.724 log10 IU/mL [facility] Blood (Blood, Venous) 10/09/2024 10:12 AM EST 10/09/2024 Christopher THOMAS LAB BLOOD ORDERABLES Final Re sult Performing Organization Address [facility]/ZIP Co de Phone Number [facility] [address] [place] [address] * Vitamin D 25 Hydroxy (10/09/2024 10:12 AM EST) Vitamin D, 25-OH, Total 35.0 30.0 - 100.0 ng/mL [facility] Comment: Vitamin D deficiency has been defined by the [place] of [employer] and an Endocrine Society practice guideline as a level of serum 25-OH vitamin D less than 20 ng/mL (1,2). The Endocrine Society went on to further define vitamin D insufficiency as a level between 21 and 29 ng/mL (2). 1. IOM ([place] of [employer]). 2010. Dietary reference ?? intakes for calcium and D. [place]: The ?? National [employer]. 2. Yao MF, Santosh LEIGH, Mele HURTADO, et al. ?? Evaluation, treatment, and prevention of vitamin D ?? deficiency: an Endocrine Society clinical practice ?? guideline. JCEM. 2010; 96(8):1911-30. Blood (Blood, Venous) 10/09/2024 10:12 AM EST 10/09/2024 Christopher THOMAS LAB BLOOD ORDERABLES Final Re sult Performing Organization Address [facility]/ZIP Co de Phone Number [facility] [address] [place] [address] * Uric Acid (10/09/2024 10:12 AM EST) Uric Acid 6.0 3.8 - 8.4 mg/dL [facility] Comment:Therapeutic target f or gout patients: <6.0 Blood (Blood, Venous) 10/09/2024 10:12 AM EST 10/09/2024 Christopher THOMAS LAB BLOOD ORDERABLES Final Re sult Performing Organization Address [facility]/ZIP Co de Phone Number [facility] [address] [place] [address] * Free T4 (10/09/2024 10:12 AM EST) Free T4 1.31 0.82 - 1.77 ng/dL [facility] Blood (Blood, Venous) 10/09/2024 10:12 AM EST 10/09/2024 Christopher THOMAS LAB BLOOD ORDERABLES Final Re sult Performing Organization Address [facility]/ZIP Co de Phone Number [facility] [address] [place] [address] * (ABNORMAL) PTH, Intact (10/09/2024 10:12 AM EST) PTH 216(H) 15 - 65 pg/mL [facility] Blood (Blood, Venous) 10/09/2024 10:12 AM EST 10/09/2024 Christopher THOMAS LAB BLOOD ORDERABLES Final Re sult Performing Organization Address [facility] Co de Phone Number [facility] [address] [place] [address] * Magnesium (10/09/2024 10:12 AM EST) Magnesium 2.0 1.6 - 2.3 mg/dL [facility] Blood (Blood, Venous) 10/09/2024 10:12 AM EST 10/09/2024 Christopher THOMAS LAB BLOOD ORDERABLES Final Re sult Performing Organization Address [facility] Co de Phone Number [facility] [address] [place] [address] * (ABNORMAL) Hemoglobin A1c (10/09/2024 10:12 AM EST) Hemoglobin A1C 5.8(H) 4.8 - 5.6 % [facility] Comment: ? Prediabetes: 5.7 - 6.4 ? Diabetes: >6.4 ? Glycemic control for adults with diabetes: <7.0 Blood (Blood, Venous) 10/09/2024 10:12 AM EST 10/09/2024 Christopher THOMAS LAB BLOOD ORDERABLES Final Re sult [facility] [address] [place] [address] * (ABNORMAL) Ferritin (10/09/2024 10:12 AM EST) Ferritin 864(H) 30 - 400 ng/mL [facility] Blood (Blood, Venous) 10/09/2024 10:12 AM EST 10/09/2024 Christopher THOMAS LAB BLOOD ORDERABLES Final Re sult Performing Organization Address [facility]/ZIP Co de Phone Number [facility] [address] [place] [address] * (ABNORMAL) Lipid panel (10/09/2024 10:12 AM EST) Cholesterol 190 100 - 199 mg/dL [facility] Triglycerides 157(H) 0 - 149 mg/dL [facility] HDL 56 >39 mg/dL [facility] VLDL Cholesterol Cruz 27 5 - 40 mg/dL [facility] LDL Calculated 107(H) 0 - 99 mg/dL [facility] Blood (Blood, Venous) 10/09/2024 10:12 AM EST 10/09/2024 Christopher THOMAS LAB BLOOD ORDERABLES Final Re sult [facility] [address] [place] [address] from Last 3 Months Insurance [facility] MEDICARE MEDICARE [facility] Care Teams Oxygen Furnace Operator Relationship Specialty Start Date End Date Jonatan Anthony MD [facility] [place] [address] [place], [place] PCP - General Internal Medicine 04/29/22
--- OUTSIDE RECORDS SUMMARY | 2025-01-01 07:00 | XMS_ITS | Encounter Summary ---
Author Organization [facility] Address [address] [place] [address] Phone Care Team Providers Care Die Finisher Name Role Phone Jonatan Anthony MD Primary Care Provider [phone] Encounter Details Date Type Department Care Team ([facility] Contact Info) Description 09/21/2023 Documentation Only [facility] [address] [place] [address] Tyrell Oden MD [address] [place] [address] [place] [address] Social History Tobacco Use Types [...] Visit [facility] [place] [address] [address] Tyrell Oden MD [address] [place] [address] [place] [address] documented as of this encounter Visit Diagnoses Not on filedocumented in this encounter Care Teams Die Finisher Relationship Specialty Start Date End Date Jonatan Anthony MD [facility] [place] [address] [place] PCP - General Internal Medicine 04/29/22 documented as of this encounter
--- OUTSIDE RECORDS SUMMARY | 2025-01-01 07:01 | XMS_ITS | Encounter Summary ---
Author Organization [facility] Address [address] [place] [address] Phone Care Team Providers Care Process Camera Operator Name Role Phone Jonatan Anthony MD Primary Care Provider [phone] Reason for Visit * Reason Comments Med Refill Encounter Details Date Type Department Care Team (Late Contact Info) Description 03/27/2024 Refill [facility] [place] [address] [place] [address] Giuliano Shirley MD [facility] [place] [address] Social History Tobacco Use Types [...] Visit [facility] [place] [address] [place] [address] Tyrell Oden MD [address] [place] [address] documented as of this encounter Visit Diagnoses Not on filedocumented in this encounter Care Teams Process Camera Operator Relationship Specialty Start Date End Date Jonatan Anthony MD [facility] [address] [place] PCP - General Internal Medicine 04/29/22 documented as of this encounter
--- OUTSIDE RECORDS SUMMARY | 2025-01-01 07:01 | XMS_ITS | Encounter Summary ---
Author Organization [facility], Address [address] [place] [address] Phone Care Team Providers Care Director Corporate Sales Name Role Phone Jonatan Anthony MD Primary Care Provider [phone] Reason for Visit * Reason Comments Med Refill Encounter Details Date Type Department Care Team (Late Contact Info) Description 11/18/2022 Refill [facility] [address] [place] [address] Tyrell Oden MD [address] [place] [address] [place] [address] Social History Tobacco Use Types [...] Office Visit [facility] [address] [place] [address] Tyrell Oden MD [address] [place] [address] [place] [address] documented as of this encounter Visit Diagnoses Not on filedocumented in this encounter Care Teams Director Corporate Sales Relationship Specialty Start Date End Date Jonatan Anthony MD [facility] [address] [place] PCP - General Internal Medicine 04/29/22 documented as of this encounter
--- OUTSIDE RECORDS SUMMARY | 2025-01-01 07:01 | XMS_ITS ---
Author Organization [facility] Brad latoya [place] Address [address] [facility] [place] [address] Care Team Providers Care Mosaic Tile Maker Name Role Phone Jonatan Anthony Primary Care Provider Leticia Matthews Unavailable [phone] Allergies Allergen (clinical drug ingredient) Drug/Non Drug Allergy documented on EMR Reaction Allergy Type Onset Date Status Penicillin Unknown Drug Allergy Active REASON FOR VISIT At Risk Footcare, Foot pain, Heel pain Medications Medication SIG (Take, Route, Frequency, Duration) Notes Start Date End Date Status Envarsus XR 1 MG as directed Orally Active Carvedilol 25 MG 1 tablet with [...] Once a day for 30 day(s) Active Sensipar 30 MG 1 tablet with food or after a meal Orally Once a day for 30 day(s) Active Stool Softener 50mg 1x day, 100mg 2x day Active glipiZIDE 5 MG 1 tablet 30 minutes before breakfast Orally Once a day for 30 day(s) Not-Taking Multivitamin Active Night Splint AFO - L1930 1 wear when at rest for 30 days Active Magnesium 400 MG as directed Orally [...] (M20.41,M20.42), Preulcerative Skin Lesion(s) (L85.1 12/11/2023 Active Extra Depth Orthopedic Shoes (1 Pair) with Customized Heat Molded Multidensity Innersoles (3 Pair) as directed Dx: NIDDM/Polyneuropathy (E11.42), Hammertoe Foot Deformity (M20.41,M20.42), Preulcerative Skin Lesion(s) (L85.1 06/13/2024 Active Cinacalcet HCl 30 MG TAKE ONE TABLET BY MOUTH ONCE DAILY Oral for 30 Active Gabapentin 300 MG TAKE 1 CAPSULE BY MOUTH EVERY NIGHT FOR NEUROPATHY AND INSOMNIA. Oral for 30 Active Mycophenolate Sodium 360 MG Oral for 30 Z940,Unavail able Active Jardiance 10 MG TAKE 1 TAB BY MOUTH TIME EACH DAY IN THE MORNING Oral for 90 Active Spironolactone 25 MG TAKE 1 TABLET BY MOUTH 1 TIME EACH DAY. Oral for 90 Active Extra Depth Orthopedic Shoes (1 Pair) with Customized Heat Molded Multidensity Innersoles (3 Pair) as directed Dx: NIDDM/Polyneuropathy (E11.42), Hammertoe Foot Deformity (M20.41,M20.42), Preulcerative Skin Lesion(s) (L85.1 Active Social History Tobacco Use: Social History Observation Description Date Details (start date - stop date) Never Smoker NA - NA Tobacco use other than smoking: Question Answer Notes Are you an other tobacco user? 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 Vital Signs Blood pressure systolic 160 mm Hg 12/26/19 25 Blood pressure diastolic 60 mm Hg 025 Height 5ft6in in 12/26/2024 Weight 175 lbs 12/26/2024 BMI 28.24 kg/m2 12/26/2024 Procedures Procedure Date Ordered Date Performed Result Body Sit e 99814-BXSOBXT NAIL, 6 OR MORE 12/26/2024 N/A 80724-FRRS SKIN LESIONS, 2 TO 4 12/26/2024 N/A Encounters Encounter Location Date Provider Diagnosis [facility] [place] [address] [place] [address] 12/26/2024 Leticia Dwyer Type 2 diabetes mellitus with [...] Short Achilles tendon (acquired), left ankle M67.02 Assessments Encounter Date Diagnosis (ICD Code) Assessment Notes Treatment Notes Treatment Clinical Notes Section Notes 12/26/2024 Type 2 diabetes mellitus with diabetic polyneuropathy (ICD-10 - E11.42) 12/26/2024 Type 2 diabetes mellitus with diabetic chronic kidney disease (ICD-10 - E11.22) 12/26/2024 Tinea unguium (ICD-10 - B35.1) 12/26/2024 Pain in left foot (ICD-10 - M79.672) 12/26/2024 Pain in left ankle and joints of left foot (ICD-10 - M25.572) 12/26/2024 Bursitis of intermetatarsal bursa of left foot (ICD-10 - M77.52) 12/26/2024 Metatarsalgia of left foot (ICD-10 - M77.42) 12/26/2024 Pain in right foot (ICD-10 - M79.671) 12/26/2024 Pain in right ankle and joints of right foot (ICD-10 - M25.571) 12/26/2024 Bursitis of intermetatarsal bursa of right foot (ICD-10 - M77.51) 12/26/2024 Metatarsalgia, right foot (ICD-10 - M77.41) 12/26/2024 Achilles tendinitis of left lower extremity (ICD-10 - M76.62) Patient Educated with: HEEL CORD STRETCHES.pdf (HEEL CORD STRETCHES.pdf ) Patient Educated with: RICE THERAPY.pdf (RICE THERAPY.pdf) 12/26/2024 Pain of left heel (ICD-10 - M79.672) 12/26/2024 Short Achilles tendon (acquired), left ankle (ICD-10 - M67.02) Plan Of Treatment Medication Medication Name Sig Start Date Stop Date Notes Night Splint AFO - L1930 1 wear when at rest for 30 days Treatment Notes Assessment Notes Achilles tendinitis of left lower extrem ity Patient Educated with: HEEL CORD STRETCHES.pdf (HEEL CORD STRETCHES.pdf) Patient Educated with: RICE THERAPY.pdf (RICE THERAPY.pdf) Pending Test Test Name Order Date 94970-ITGZYMT NAIL, 6 OR MORE 12/26/2024 18946-SJTH SKIN LESIONS, 2 TO 4 12/26/19 25 Next Appt Details Follow Up: prn, Reason: Provider Name:Leticia wDyer , 03/31/2025 09:30:00 AM, [address] [place], [address], Procedure Notes * Category Sub-Category Detail Notes Debride Nail 6-10 Nail debridement Due to the cl inical pathology outlined in the exam findings, performance of this nail treatment is medically necessary as its management by an unskilled/untrained nonprofessional would put this patients foot and overall health at risk. Therefore, debridement to affected nail(s), as described in exam ( T1 T3 T4 T6 T7, T8 ), was performed exclusively by the physician of record to reduce/remove overall nail length, girth, thickness, subungual debris, and necrotic tissue, by manual and/or electrical means through the use of a nail nipper and/or dremel-type grinder set up operator thread, to a more viable healthy nail plate or bed tissue 6-10 nails in total. Silver nitrate was used for any petechial bleeding as necessary. Definitive antifungal treatment options, both pharmaceutical and surgical, have been reviewed and discussed with the patient. The patient solely prefers the use of intermittent/as needed professional debridement services for their nail condition and understands the need for additional periodic treatments to maintain effectiveness in symptomatic relief - 57347 Keratoma Treatment Parring or Cutting o f Benign Hyperkeratotic Lesion(s) (-56) 2-4 Lesions - Due to the at risk nature of the patients medical condition as documented in the exam findings, performance of this keratoderma treatment is medically necessary as its management by an unskilled/untrained nonprofessional would put this patients foot and overall health at risk. Therefore, the benign hyperkeratotic lesions, ( 3 ) in total, locations as stated and described in the exam ( Medial plantar, IPJ, TA, plantar Heel(s),b/l ), were pared, and/or cut utilizing a sterile 15 blade, tissue nippers, and/or power dremel instrumentation by the physician of record - 31184 Progress Notes * Maninder PACKDOB: [birth year] (74 yo M)Acc No.[id number]:12/26/2024 Progress Note Patient:?Maninder PACK Provider:?Leticia Dwyer DPM :1950???Age:74 Y???Sex:Male Sean e:12/26/2024 Address:[address] [place], [place] [id number] Pcp:Jonatan Anthony Subjective: * Chief Complaints: * ???At Risk FootcareFoot pain Heel pain * HPI: ???At Risk footcare:?Pt States Last PCP Visit:?Date?07/19/2024 ???Foot Pain:?Location:??Bottom, Forefoot, B/L.?Duration:?, several days.?Onset:?overuse.?Course:?, improved, at 50 %.?Treatments:?rest/alter normal daily activity?.?Heel pain:?Location:?Back of heel, LEFT.?Duration:?, a month.?Course:?worse.?Aggravated:?standing, walking, walking first thing in the morning/after rest.?Treatments:?rest/alter normal daily activity.? * ROS:?General/Constitutional:?Nausea?denies.?Vomiting?denies.?Hunger Thirst?denies.?Loss appetite?denies.?Chills?denies.?Fatigue?denies.?Fever?denies.?Night Sweats?denies.?Unexplained weight loss?denies.?Unexplained weight gain?denies.?HEENTM:?Dentures?denies.?Dizziness?denies.?Glasses/contacts?admits.?Retinopathy?den ies.?Blurred/double vision?denies.?TMJ?denies.?Discharge/drainage?denies.?Implants?denies.?Sore throat?denies.?Dental implants?denies.?Hard of hearing ?denies.?Difficulty chewing/swallowing/speaking?denies.?Nose bleeds?denies.?Sore mouth?denies.?Respiratory:?On O xygen?denies.?Pneumonia/pleurisy?denies.?Bronchitis?denies.?Emphysema?denies.?Co ughing?denies.?Cough blood?denies.?Shortness of breath?denies.?Wheezing?denies.?Cardiovascular:?Pacemaker?denies.?MVP?denies.?WPW?denies.?CHF?denies.?Heart attack?denies.?Septal defect?denies.?Rapid beat?denies.?Chest pain ?denies.?Atrial Fib.?denies.?Murmur/Palpitations?denies.?Gastrointestinal:?Hemorrhoids?denies.?Stomach/Abdominal pain?denies.?Dark blood stool?denies.?Irritable bowel ?denies.?Constipation?denies.?Diarrhea?denies.?Hematology:?Swelling?denies.?Clots?denies.?Varicose Veins?denies.?Bruising?denies.?Bleeding problem?denies.?Genitourinary:?Blood urine?denies.?Frequent/Painfu/urination/bladder control?denies.?Kidney stones?denies.?Infection (UTI)?denies.?Nephropathy?denies.?sex trans dis (STD)?denies.?Prostate?denies.?Musculoskeletal:?Hammertoes?denies.?Bunions?denies.?Back Pain?admits.?Muscle Cramps/ Resting?denies.?Muscle cramps / walking?denies.?Generalized aches and pains?denies.?Weakness?denies.?Integ.:?Holliday?denies.?Scars?denies.?Corns/calluses?admits.?Ingrown nails?admits.?Painful nails?admits.?Open Sores?denies.?Rashes?denies.?Neurologic:?Difficulty sleeping?denies.?Brain disorder?denies.?Numbness?denies.?Balance t rouble?denies.?Confusion?denies.?Fainting/blackouts?denies.?Tingling?denies.?Shekhar mors?denies.? * Medical History:? * Surgical History:?kidney tra [...] influencing health status.? * Social History:?Tobacco Use:?Tobacco use other than smoking?Are you an other tobacco user??No ?Tobacco Control (Standard)?Tobacco use:?Nonsmoker ???Miscellaneous:?Caffeine: yes, frequency:, 1 cups per day. ?Children: yes. ?Exercise: yes, walking. ?Marital status: . 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 * Medications:?TakingMultivita min Stool Softener , Notes to Pharmacist: 50mg 1x day, 100mg 2x daySensipar 30 MG Tablet 1 tablet with food or after a meal Orally Once a day Lasix 20 MG Tablet 1 tablet Orally Once a day Folic Acid 1 MG Tablet 1 tablet Orally Once a day Rosuvastatin Calcium 5 MG Tablet 1 tablet Orally Once a day Donepezil HCl 5 MG Tablet 1 tablet at bedtime Orally Once a day Allopurinol 100 MG Tablet 1 tablet Orally Once a day Doxazosin Mesylate 4 MG Tablet 1 tablet Orally Once a day NIFEdipine ER 60 MG Tablet Extended Release 24 Hour 1 tablet on an empty stomach Orally Once a day Carvedilol 25 MG Tablet 1 tablet with food Orally Twice a day Entecavir 0.5 MG Tablet 1 tablet on an empty stomach Orally Once a day Envarsus XR 1 MG Tablet Extended Release 24 Hour as directed Orally Extra Depth Orthopedic Shoes (1 Pair) with Customized Heat Molded Multidensity Innersoles (3 Pair) as directed Dx: NIDDM/Polyneuropathy (E11.42), Hammertoe Foot Deformity (M20.41,M20.42), Preulcerative Skin Lesion(s) (L85.1 Gabapentin 300 MG Capsule TAKE 1 CAPSULE BY MOUTH EVERY NIGHT FOR NEUROPATHY AND INSOMNIA. Oral Mycophenolate Sodium 360 MG Tablet Delayed Release Oral , Notes to Pharmacist: Z940,UnavailableCinacalcet HCl 30 MG Tablet TAKE ONE [...] Foot Deformity (M20.41,M20.42), Preulcerative Skin Lesion(s) (L85.1 Extra Depth Orthopedic Shoes (1 Pair) with Customized Heat Molded Multidensity Innersoles (3 Pair) as directed Dx: NIDDM/Polyneuropathy (E11.42), Hammertoe Foot Deformity (M20.41,M20.42), Preulcerative Skin Lesion(s) (L85.1 Ammonium Lactate 12 % Cream APPLY TO AFFECTED AREA TWICE A DAY TO DRY AREAS OF SKIN ON FEET Tamsulosin HCl 0.4 MG Capsule Oral Taking Multivitamin Taking Stool Softener , Notes to Pharmacist: 50mg 1x day, 100mg 2x dayTaking Sensipar 30 MG Tablet 1 tablet with food or after a meal Orally Once a day Taking Lasix 20 MG Tablet 1 tablet Orally Once a day Taking Folic Acid 1 MG Tablet 1 tablet Orally Once a day Taking Rosuvastatin Calcium 5 MG Tablet 1 tablet Orally Once a day Taking Donepezil HCl 5 MG Tablet 1 tablet at bedtime Orally Once a day Taking Allopurinol 100 MG Tablet 1 tablet Orally Once a day Taking Doxazosin Mesylate 4 MG Tablet 1 tablet Orally Once a day Taking NIFEdipine ER 60 MG Tablet Extended Release 24 Hour 1 tablet on an empty stomach Orally Once a day Taking Carvedilol 25 MG Tablet 1 tablet with food Orally Twice a day Taking Entecavir 0.5 MG Tablet 1 tablet on an empty stomach Orally Once a day Taking Envarsus XR 1 MG Tablet Extended Release 24 Hour as directed Orally Taking Extra Depth Orthopedic Shoes (1 Pair) with Customized Heat Molded Multidensity Innersoles (3 Pair) as directed Dx: NIDDM/Polyneuropathy (E11.42), Hammertoe Foot Deformity (M20.41,M20.42), Preulcerative Skin Lesion(s) (L85.1 Taking Gabapentin 300 MG Capsule TAKE 1 CAPSULE BY MOUTH EVERY NIGHT FOR NEUROPATHY AND INSOMNIA. Oral Taking Mycophenolate Sodium 360 MG Tablet Delayed Release Oral , Notes to Pharmacist: Z940,UnavailableTaking Cinacalcet HCl 30 MG Tablet TAKE [...] Foot Deformity (M20.41,M20.42), Preulcerative Skin Lesion(s) (L85.1 Taking Extra Depth Orthopedic Shoes (1 Pair) with Customized Heat Molded Multidensity Innersoles (3 Pair) as directed Dx: NIDDM/Polyneuropathy (E11.42), Hammertoe Foot Deformity (M20.41,M20.42), Preulcerative Skin Lesion(s) (L85.1 Taking Ammonium Lactate 12 % Cream APPLY TO AFFECTED AREA TWICE A DAY TO DRY AREAS OF SKIN ON FEET Taking Tamsulosin HCl 0.4 MG Capsule Oral Not-Taking/PRNglipiZIDE 5 MG Tablet 1 tablet 30 minutes before breakfast Orally Once a day Magnesium 400 MG Capsule as directed Orally Medication List reviewed and reconciled with the patientNot-Taking/PRN glipiZIDE 5 MG Tablet 1 tablet 30 minutes before breakfast Orally Once a day Not-Taking/PRN Magnesium 400 MG Capsule as directed Orally Medication List reviewed and reconciled with the patient * Allergies:?Penicillinyes[All ergies Verified] Objective: * Vitals:?Ht: 5ft6in, Wt:175, BMI:28.24, Shoe size: 8.5, BP:160/60mm Hg, BS: not taken, Ht-cm: 167.64 cm, Wt-k.38 kg. * Examination: ???CQM Exceptions:: ?Hemoglobin A1c not performed?Ophthalmology Referral: ?DIABETES EYE EXAM?General Examination: ?GENERAL APPEARANCE:?Reveals a pleasant, alert, well nourished, well- developed, well hydrated individual, who demonstrates proper attention to hygiene/body habitus, and is in no acute distress, Pt serves as own historian for office visit today.?ORIENTED:?person, place, and time.?FOOT EXAM:?Footwear Evaluation?Vascular: ?DP PULSES (B):?2/4, B/L.?PT PULSES (B):?2/4, B/L.?Neurological: ?SENSORY:?Neurological exam demonstrates reduced light touch sensation reduced sharp/dull pin prick discrimination reduced vibration sensation reduced 5.07 monofilament test performed at plantar aspects of 5 varied sites per foot shows sensation reduced , , at Forefoot B/L.?TINEL'S COMPRESSION:??Negative tarsal tunnel, michel pedis, and medial calcaneal nerves b/l.?DEEP TENDON REFLEXES:? Deferred on symptomatic extremity due to discomfort.?Orthopedic: ?GAIT ABNORMALITY:?antalgic? , antalgic.?FOOT MORPHOLOGY:? Decreased Ankle joint dorsiflexion ROM, knee extended.?DIGITAL DEFORMITIES:?Digital contracture, PIPJ, 2-5 B/L, incompl-reducible to push-up test, no over, nor underlapping, with evidence of shoe producing skin irritation.?MPJ PATHOLOGY:?Pain, swelling, and inflammation to plantar MPJ(s), B/L , No MPJ pain with ROM , [ - ] Ecchymosis 2-5 b/l, Approximately _50 percent LESS.?FOOTWEAR:?good condition.?Dermatologic: ?SKIN FINDINGS:?Skin exam reveals Keratotic lesion(s) located at, Medial plantar, IPJ, TA, plantar?Heel(s),b/l.?Nails: ?NAILS are:?elongated,overgrown,dystrophic,greater than 3mm thick,discolored and friable with crumbly malodorous subungual debris,?with dull to no pain on palpation due to neuropathy?T1?T3?T4?T6?T7,?T8?.?Neuroma Pain: ?PALPATION:?No interspace pain noted on palpation , B/L.?Heel Pain: ?INSPECTION:?Pain on palpation to Posterior Superior Aspect Calcaneus,Pain on palpation to Achilles tendon/bursa with inflammation and swelling present,Prominent posterior and posterior/superior heel present, LEFT foot,Neg [place].? Assessment: * Assessment: 1.?Type 2 diabetes mellitus with diabetic polyneuropathy - E11.42???2.?Type 2 diabetes mellitus with diabetic chronic kidney disease - E11.22???3.?Tinea unguium - B35.1???4.?Pain in left foot - M79.672???5.?Pain in left ankle and joints of left foot - M25.572???6.?Bursitis of intermetatarsal bursa of left foot - M77.52???7.?Metatarsalgia of left foot - M77.42???8.?Pain in right foot - M79.671???9.?Pain in right ankle and joints of right foot - M25.571???10.?Bursitis of intermetatarsal bursa of right foot - M77.51???11.?Metatarsalgia, right foot - M77.41???12.?Pain of left heel - M79.672???13.?Achilles tendinitis of left lower extremity - M76.62 (Primary)???Specify :Acute problem, Complicated w/ Multiple Tx Options(4),Dx New problem, Prognosis Uncertain (4)???14.?Short Achilles tendon (acquired), 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 Plan: * Treatment: 2.?Type 2 diabetes mellitus with diabetic polyneuropathy?Procedure: 66077-COQV SKIN LESIONS, 2 TO 4 3.?Tinea unguium?Procedure: 91688-ZSNOPAO NAIL, 6 OR MORE * Procedures:?Debride Nail 6-10:?Nail debridement?Due to the clinical pathology outlined in the exam findings, performance of this nail treatment is medically necessary as its management by an unskilled/untrained nonprofessional would put this patients foot and overall health at risk. Therefore, debridement to affected nail(s), as described in exam ( T1 T3 T4 T6 T7, T8 ), was performed exclusively by the physician of record to reduce/remove overall nail length, girth, thickness, subungual debris, and necrotic tissue, by manual and/or electrical means through the use of a nail nipper and/or dremel- type grinder set up operator thread, to a more viable healthy nail plate or bed tissue 6-10 nails in total. Silver nitrate was used for any petechial bleeding as necessary. Definitive antifungal treatment options, both pharmaceutical and surgical, have been reviewed and discussed with the patient. The patient solely prefers the use of intermittent/as needed professional debridement services for their nail condition and understands the need for additional periodic treatments to maintain effectiveness in symptomatic relief - 27427.?Keratoma Treatment:?Parring or Cutting of Benign Hyperkeratotic Lesion(s)?(-56) 2-4 Lesions - Due to the at risk nature of the patients medical condition as documented in the exam findings, performance of this keratoderma treatment is medically necessary as its management by an unskilled/untrained nonprofessional would put this patients foot and overall health at risk. Therefore, the benign hyperkeratotic lesions, ( 3 ) in total, locations as stated and described in the exam ( Medial plantar, IPJ, TA, plantar Heel(s),b/l ), were pared, and/or cut utilizing a sterile 15 blade, tissue nippers, and/or power dremel instrumentation by the physician of record - 20187.? * Procedure Codes:?26237 DEBRI DE NAIL, 6 OR MORE, Modifiers: XS 47975 TRIM SKIN LESIONS, 2 TO 4, Modifiers: XS * Preventive Medicine:? ??Counseling:?Discussion:?-14: Office or other outpatient visit for the evaluation and management of an established patient, which required a medically appropriate history and/or examination and MODERATE level of DECISION MAKING for: 1 OR MORE CHRONIC PROBLEM(S) THATS WORSENING, 2 STABLE CHRONIC PROBLEMS, A NEWLY DIAGNOSED PROBLEM WITH UNCERTAIN PROGNOSIS, AN ACUTE COMPLICATED INJURY WITH MULTIPLE TREATMENT OPTIONS, OR AN ACUTE PROBLEM WITH ACCOMPANYING SYSTEMIC SYMPTOMS, THAT POSE(S) A MODERATE RISK OF MORBIDITY. THIS CONDITION MAY ALSO INCLUDE RX DRUG MANAGEMENT, OR A DECISON FOR MINOR SURGERY. The visit on the day of the [...] have encouraged the patient to call the office.?Heel pain:?ACHILLES: I explained to the patient the possible etiologies of Achilles Tendonitis including foot type/shoegear/activity level/exercise routine and the risks/benefits of all the different treatment options for pain including: No treatment at all, Rest, Ice, NSAIDs(only if well tolerated after meals), New/supportive Shoegear, Strappings and Tapings, Stretching exercises, Deep Tissue Massage, Heel cups/cushions, Arch support/shoe inserts, Custom orthoses, Topical analgesics including Aspercream/Voltaren gel, Night splint/AFO Bracing for stiffness, Cast boot with crutches/cane/or walker for assisted ambulation, Physical Therapy, EPAT/ESWT, Interfil injection therapy, as well as surgical [place]/Calcanectomy- tendon debridement surgical procedures if needed. Recommendations were made to limit barefoot walking, eliminate wearing nonsupportive shoegear (i.e. flip-flops or sandals, or a shoe with an easily bendable, foldable, or twistable sole) and wear shoegear with a good solid sole, a supportive arch, and plenty of room for an insert/orthotic if necessary. If wearing sandals was required by the patient, we recommended orthopedic sandals such as Orthoheel or Birkenstock even while in the home. If the patient wore heels in the past, we recommended they continue, but eliminate the use of flats. The advantages and disadvantages of each option were discussed and the patients' questions re: shoegear, custom vs prefabricated inserts, activity level, PO vs Topical medications (and their respective potential complications/drug interactions/side effects), and consistency in home treatment regimens for optimal success were answered to their verbally confirmed satisfaction. Literature detailing Achilles Tendonitis and the various treatment options were dispensed and reviewed, Stretching exercises for the patients injury/diagnosis were discussed and demonstrated, Handouts were also given, Recommended a Night Splint to be worn daily for a minimum of 2 hours.?Metatarsalgea:?Discussed other tx options for the patients condition, given recent successful results to treatment, the patient wishes to continue with the present plan for their condition.?P.R.I.C.E.:?The patient was counseled on the use of P.R.I.C.E. and NSAIDS (if well tolerated) to aid in the recovery from their painful condition, Recommended Topical analgesics including Biofreeze.? * Follow Up:?prn * Images: * Sign off status: Completed true * Provider:Dami Dwyer DPM Date:?2024 Generated for Sven montes/Swati/Navya on:?01/01/2025 07:00 AM EST History and Physical Notes * HPI (History of Present Illness) Category Sub-Category Detail Notes Category Not es Heel pain Duration: , a month Location: Back of heel, LEFT Aggravated: standing, walking, w alking first thing in the morning/after rest Course: worse Treatments: rest/alter normal da eliezer activity At Risk footcare Pt States Last PCP Visit: Date: 4 Foot Pain Location: Bottom, Forefoot, B/L Duration: , several days Onset: overuse Course: , improved, at 50 % Aggravated: Treatments: rest/alter normal da eliezer activity Examination Category Sub-Category Detail Notes Category [...] medial calcaneal nerves b/l DEEP TENDON REFLEXES: Deferred on sympto matic extremity due to discomfort Dermatologic SKIN FINDINGS: Skin exam reveal s Keratotic lesion(s) located at, Medial plantar, IPJ, TA, plantar Heel(s),b/l Orthopedic GAIT ABNORMALITY: antalgic , antalgic FOOT MORPHOLOGY: Decreased Ankle join t dorsiflexion ROM, knee extended FOOTWEAR: good condition DIGITAL DEFORMITIES: Digital contracture , PIPJ, 2-5 B/L, incompl-reducible to push-up test, no over, nor underlapping, with evidence of shoe producing skin irritation MPJ PATHOLOGY: Pain, swelling, and inflammation to plantar MPJ(s), B/L , No MPJ pain with ROM , [ - ] Ecchymosis 2-5 b/l, Approximately _50 percent LESS General Examination GENERAL APPEARANCE: Reveals a pleasant, alert, well nourished, well-developed, well hydrated individual, who demonstrates proper attention to hygiene/body habitus, and is in no acute distress, Pt serves as own historian for office visit today FOOT EXAM: Lower Extremity Neurological Exa m performed:: Yes Visual exam of foot performed:: Yes Date: 12/26/2024 Sensory testing performed:: sensations d iminished Sensory and motor testing performed:: se nsations diminished Pedal pulse taking performed:: 2+ ORIENTED: person, place, and t chuck Footwear Evaluation Footwear Evaluation performe d:: Yes Ophthalmology Referral DIABETES EYE EXAM Procedure Perform ed:: Yes ?Date of Exam Performed: 09/20/2024 Findings of Diabetic Eye Exam:: no retin opathy Vascular DP PULSES (B): 2/4, B/L PT PULSES (B): 2/4, B/L Nails NAILS are: elongated,overgr own,dystrophic,greater than 3mm thick,discolored and friable with crumbly malodorous subungual debris, with dull to no pain on palpation due to neuropathy T1 T3 T4 T6 T7, T8 Heel Pain INSPECTION: Pain on palpatio n to Posterior Superior Aspect Calcaneus, Pain on palpation to Achilles tendon/bursa with inflammation and swelling present, Prominent posterior and posterior/superior heel present, LEFT foot, Neg [place] CQM Exceptions: Hemoglobin A1c not performed Reason:: No reason specified
--- OUTSIDE RECORDS SUMMARY | 2025-01-01 07:01 | XMS_ITS | Encounter Summary ---
Author Organization [facility] Address [address] [place] [address] Phone Care Team Providers Care Ceramics Test Engineer Name Role Phone Jonatan Anthony MD Primary Care Provider [phone] Encounter Details Date Type Department Care Team ([facility] Contact Info) Description 12/27/2023 Documentation Only [facility] [address] [place] [address] Nadja Moss [address] [place] [phone] Social History Tobacco Use Types Packs/Day Years [...] Visit [facility] [place] [address] [place] [address] Tyrell Oden MD [address] [place] [address] documented as of this encounter Visit Diagnoses Not on filedocumented in this encounter Care Teams Ceramics Test Engineer Relationship Specialty Start Date End Date Jonatan Anthony MD [facility]NAL [place] [address] [place], [place] PCP - General Internal Medicine 04/29/22 documented as of this encounter
[2025-01-01 07:10] LABS: MANUAL DIFF FLAG NO
[2025-01-01 07:38] LABS: Eosinophils Absolute Auto 0.1 X10*3/uL (0.0-0.4); Eosinophils Percent Auto 4.2 % (0-4); Hematocrit 39.3 % (42.0-52.0); Hemoglobin 12.6 g/dl (14.0-18.0); Imm Gran Abs Auto 0.11 X10*3/uL (0.00-0.03); Imm Gran Pct Auto 3.6 % (0.0-0.4); Lymphocytes Absolute Auto 1.3 X10*3/uL (1.2-4.9); Lymphocytes Percent Auto 42.2 % (20-40); Mean Corpuscular HGB Conc 32.1 g/dl (31.0-36.0); Mean Corpuscular Hemoglobin 29.6 pg (27.0-33.0); Mean Corpuscular Volume 92.5 fL (80.0-98.0); Mean Platelet Volume 9.9 fL (9.4-12.4); Monocytes Absolute Auto 0.3 X10*3/uL (0.1-1.2); Neutrophils Absolute Auto 1.2 x10*3/uL (2.0-8.3); Platelet Count 174 X10*3/uL (160-400); Red Blood Count 4.25 X10*6/uL (4.60-5.80); Red Cell Distribution Width 13.9 % (11.0-16.0); Retic HGB Equivalent 32.5 pg (30.0-35.0); Reticulocyte Percent 1.4 % (0.5-1.8); Reticulocytes Absolute 0.061 X10*6/uL (0.026-0.095); White Blood Count 3.1 X10*3/uL (4.8-10.8)
[2025-01-01 08:15] LABS: Alanine Aminotransferase 24 U/L (0-40); Alkaline Phosphatase 98 U/L (39-117); Anion Gap 11 (12-20); Aspartate Amino Transferase 24 U/L (5-37); Bilirubin Total 0.5 mg/dL (0.0-1.0); Blood Urea Nitrogen 28 mg/dL (9-16); Calcium 10.3 mg/dL (8.4-10.2); Carbon Dioxide 24 mmol/L (22-29); Chloride 113 mmol/L (96-108); Cholesterol 186 mg/dL (<200); Estimated Glomerular Filt Rate 42; Glucose Random 105 mg/dL (60-115); HDL Cholesterol 50 mg/dL (>40); Iron 71 mcg/dL (45-160); LDL Cholesterol Calculated 110 mg/dL (<100); Percent Iron Saturation 34 % (15-50); Potassium 4.4 mmol/L (3.3-5.1); Sodium 144 mmol/L (135-145); Total Iron Binding Capacity 211 mcg/dL (228-428); Total Protein 6.7 g/dL (6.5-8.0); Triglycerides 132 mg/dL (<150); Unsaturated Iron Binding 140 ug/dL
[2025-01-01 08:41] LABS: Ferritin 1344 ng/mL (20-250); Free T4 (Free Thyroxine) 1.12 ng/dL (0.71-1.85); Thyroid Stimulating Hormone 1.28 uIU/mL (0.32-4.0)
[2025-01-01 08:43] LABS: Folate 18.3 ng/mL (> or = 4.0); Vitamin B12 952 pg/mL (200-900)
[2025-01-01 12:43] LABS: Appearance Urine Clear; Color Urine Yellow; Glucose Urine UA >=1000 mg/dL (Negative); Leukocyte Esterase Urine Negative (Negative); Nitrite Urine Negative (Negative); UMIC TRIGGER UA YES; Urine Blood Negative (Negative); Urine Ketones Negative (Negative); Urine Protein 30 (1+) mg/dL (Neg-Trace)
[2025-01-01 12:50] LABS: Bacteria Urine None Seen (None Seen); Hyaline Casts Urine 0-2 /LPF (0-2); RBC Urine 0-2 /HPF (0-2); Squamous Epithelial Cell Urine 0-2 /HPF (0-2); WBC Urine 0-5 /HPF (0-5)
== END 2025-01-01 06:58 | disposition home or self-care (01) ==
LOC: HO.LAB 06:57
PROVIDERS: PCP Internal Medicine; Visit Provider Internal Medicine
DX: E78.00 Pure hypercholesterolemia, unspecified (principal)
CPT/HCPCS: 36415; 80053; 80061; 81001; 82607; 82728; 82746; 83540; 84439; 84443; 85025; 85045

== ENCOUNTER 2025-01-03 15:59 | Outpatient (AMB) | payer MEDICARE, SELFPAY ==
--- OUTSIDE RECORDS SUMMARY | 2025-01-03 16:01 | XMS_ITS | Encounter Summary ---
Author Organization [facility], Address [address] [place] [address] Phone Care Team Providers Care Dredge Pipeman Name Role Phone Jonatan Anthony MD Primary Care Provider [phone] Reason for Visit * Reason Comments Med Refill Encounter Details Date Type Department Care Team (Late Contact Info) Description 08/01/2023 Refill [facility] [address] [place] [address] Christopher Caicedo PA Social History [...] Upcoming Encounters Date Type Department Care Team ([facility] Contact Info) Description 02/14/2025 11:30 AM EDT Office Visit [facility] [address] [place] [address] Tyrell Oden MD [address] [place] [address] [place] [address] documented as of this encounter Visit Diagnoses Not on filedocumented in this encounter Care Teams Dredge Pipeman Relationship Specialty Start Date End Date Jonatan Anthony MD [facility] INTERNAL [address] [place] PCP - General Internal Medicine 04/29/22 documented as of this encounter
--- OUTSIDE RECORDS SUMMARY | 2025-01-03 16:01 | XMS_ITS | Encounter Summary ---
Author Organization [facility] Address [address] [place] [address] Phone Care Team Providers Care Product Steward Name Role Phone Jonatan Anthony MD Primary Care Provider [phone] Reason for Visit * Reason Comments Med Refill Encounter Details Date Type Department Care Team (Late st Contact Info) Description 08/26/2023 Refill [facility] [place], [address] [place] [address] Tyrell Oden MD [address] [place] [address] [place] [address] Social History Tobacco Use Types [...] Visit [facility] [place] [address] [place] [address] Tyrell Oden MD [address] [place] [address] [place] [address] documented as of this encounter Visit Diagnoses Not on filedocumented in this encounter Care Teams Product Steward Relationship Specialty Start Date End Date Jonatan Anthony MD [facility] [address] [place] PCP - General Internal Medicine 04/29/22 documented as of this encounter
--- OUTSIDE RECORDS SUMMARY | 2025-01-03 16:01 | XMS_ITS | Encounter Summary ---
Author Organization [facility] Address [address] [place] [address] Phone Care Team Providers Care Wireless Sales Representative Name Role Phone Jonatan Anthony MD Primary Care Provider [phone] Encounter Details Date Type Department Care Team (Late Contact Info) Description 03/31/2022 Documentation Only [facility] [address] [place] [address] Christopher Caicedo PA Social History [...] Visit [facility] [address] [place] [address] Tyrell Oden MD [address] [place] [address] [place] [address] documented as of this encounter Visit Diagnoses Not on filedocumented in this encounter Care Teams Wireless Sales Representative Relationship Specialty Start Date End Date Jonatan Anthony MD [facility] INTERNAL [place] [address] [place], [place] PCP - General Internal Medicine 04/29/22 documented as of this encounter
--- OUTSIDE RECORDS SUMMARY | 2025-01-03 16:01 | XMS_ITS ---
Author Name [facility] Organization Unknown Problems Problem Status Onset Date Problem Type Date of Resoluti on Source Complication of transplanted kidney, unspecified complication [facility]
--- OUTSIDE RECORDS SUMMARY | 2025-01-03 16:01 | XMS_ITS | Encounter Summary ---
Author Organization [facility] Address [address] [place] [address] Phone Care Team Providers Care Cattle Farmer Name Role Phone Jonatan Anthony MD Primary Care Provider [phone] Encounter Details Date Type Department Care Team ([facility] Contact Info) Description 10/05/2023 Documentation Only [facility] [address] [place] [address] Tyrell Oden MD [address] [place] [address] [place] [address] Social History Tobacco Use Types [...] Visit [facility] [place] [address] [place] [address] Tyrell Oden MD [address] [place] [address] [place] [address] documented as of this encounter Visit Diagnoses Not on filedocumented in this encounter Care Teams Cattle Farmer Relationship Specialty Start Date End Date Jonatan Anthony MD [facility]NAL [place] [address] [place] PCP - General Internal Medicine 04/29/22 documented as of this encounter
--- OUTSIDE RECORDS SUMMARY | 2025-01-03 16:02 | XMS_ITS | Patient Health Record ---
Author Organization [facility] Brad latoya KangKaz Address [address] [facility] [place] [address] Care Team Providers Care Surgical Scrub Technologist Name Role Phone Jonatan Anthony Primary Care Provider Leticia Matthews Unavailable [phone] Allergies Allergen (clinical drug ingredient) Drug/Non Drug Allergy documented on EMR Reaction Allergy Type Onset Date Status Penicillin Unknown Drug Allergy Active Results Component Value Reference Range Notes HEMOGLOBIN A1C (GLYCOHEMOGLO BIN) Reviewed date:01/02/2025 01:02:56 PM Interpretation: Performing Lab: Notes/Report: HEMOGLOBIN A1C % (HH) 5.4 Reason For Referral No Information Medications Medication [...] Problem Acquired hammer toe of right foot (9364675039218068) Other hammer toe(s) (acquired), right foot (M20.41) Active confirmed Problem Acquired hammer toe of left foot (3178235805200053) Other hammer toe(s) (acquired), left foot (M20.42) Active confirmed Problem Chronic kidney disease due to type 2 diabetes mellitus (025479195564) 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.22) Active confirmed Problem Polyneuropathy due to type 2 diabetes mellitus (728232786) Type 2 diabetes mellitus with diabetic polyneuropathy (E11.42) Active confirmed Problem Juvenile osteochondrosis of the foot (591126269) 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) Active confirmed Problem Acquired deformity of right foot (36737552239227526 ) PlantarFlexion of metatarsal of right foot (M21.6X1) Active confirmed Problem Acquired deformity of left foot (48534527655840134 ) PlantarFlexion of metatarsal of left foot (M21.6X2) Active confirmed Vital Signs Blood pressure diastolic 60 mm Hg 12/26/2024 Height 5ft6in in 12/26/2024 Blood pressure systolic 160 mm Hg 12/26/2024 Weight 175 lbs 12/26/2024 BMI 28.24 kg/m2 12/26/2024 Procedures Procedure Date Ordered Date Performed Result Body Sit e 26754-WFMKHXE NAIL, 6 OR MORE 03/14/2024 N/A 87313-Jjmyrqtt Plate 03/14/2024 N/A 60273-LZEM SKIN LESIONS, 2 TO 4 03/14/2024 N/A 53353-PDQUKQI NAIL, 6 OR MORE 06/13/2024 N/A 55423-AWXW SKIN LESIONS, 2 TO 4 06/13/2024 N/A 74542-CJBSCKM NAIL, 6 OR MORE 09/19/2024 N/A 11106-QATR SKIN LESIONS, 2 TO 4 09/19/2024 N/A 61726-MKFCAGN NAIL, 6 OR MORE 12/26/2024 N/A 43479-ACLE SKIN LESIONS, 2 TO 4 12/26/2024 N/A Encounters Encounter Location Date Provider Diagnosis [address] [address] 03/14/2024 Leticia Black Type 2 diabetes mellitus with diabetic polyneuropathy E11.42 ; Type 2 diabetes mellitus with diabetic chronic kidney disease E11.22 ; Tinea unguium B35.1 ; Xerosis cutis L85.3 and Ingrown nail L60.[address] [address] 06/13/2024 Leticia Black Type 2 diabetes mellitus with diabetic polyneuropathy E11.42 ; Type 2 diabetes mellitus with diabetic chronic kidney disease E11.22 ; Tinea unguium B35.1 ; Other hammer toe(s) (acquired), left foot M20.42 and Other hammer toe(s) (acquired), right foot M20.[address] [address] 09/19/2024 Leticia Black Type 2 diabetes mellitus [...] foot M77.51 and Metatarsalgia, right foot M77.[address] [address] 12/26/2024 Leticia Black Type 2 diabetes mellitus with [...] Short Achilles tendon (acquired), left ankle M67.02 [facility] [address] [address] 08/19/2024 Leticia Dwyer Xerosis cutis L85.3 [facility] [address] [address] 01/02/2025 Leticia Dwyer Assessments Encounter Date Diagnosis (ICD Code) Assessment [...] Treatment Pending Test Test Name Order Date 03656-HEYYEBV NAIL, 6 OR MORE 09/01/2022 41026-QRGEKDN NAIL, 6 OR MORE 12/08/2022 85217-VPQZTVK NAIL, 6 OR MORE 03/09/2023 38969-GSEYVYJ NAIL, 6 OR MORE 12/11/2023 89665-MOOFMKJ NAIL, 6 OR MORE 03/14/2024 28984-LVKDDPO NAIL, 6 OR MORE 06/13/2024 81724-VHFQJLG NAIL, 6 OR MORE 09/19/2024 11273-JTGRVAB NAIL, 6 OR MORE 12/26/2024 83834-Eywoojrp Plate 03/09/2023 77032-Mgbzauqz Plate 03/14/2024 68887-UIEL SKIN LESIONS, 2 TO 4 06/13/20 24 54843-JMTI SKIN LESIONS, 2 TO 4 12/26/19 25 85761-JIWK SKIN LESIONS, 2 TO 4 09/19/20 24 37299-HSZX SKIN LESIONS, 2 TO 4 03/14/20 24 99672-EBWC SKIN LESIONS, 2 TO 4 12/11/19 24 23236-PGJS SKIN LESIONS, 2 TO 4 03/09/20 23 00643-KFAN SKIN LESIONS, 2 TO 4 12/08/19 23 Next Appt Details Provider Name:Leticia Dwyer , 03/31/2025 09:30:00 AM, [address] [facility], [place], [address], Insurance Providers Payer Name Payer Address Payer Phone Subscriber Number Group Number Insured Name Patient Relationship to Insured Coverage Start Date Coverage End Date Medicare National Govt Svcs Inc [address] [facility] [address] [id number] Maninder Pack Self - patient is the insured Med[employer] Blue Shield [address] [place] [address] [phone] [id number] 1 Maninder Pack Self - patient is the insured Medical (General) History Medical History History ICD Code Alzheimers disease Gall bladder problems Glaucoma Gout Hepatitis C High blood pressure Kidney disease Stroke Sleep apnea Neuropathy Surgical History Surgery Date(Month/Year) kidney transplant 09/30/2021 gall bladder
--- OUTSIDE RECORDS SUMMARY | 2025-01-03 16:02 | XMS_ITS | Encounter Summary ---
Author Organization [facility], Address [address] [place] [address] Phone Care Team Providers Care Human Projectile Name Role Phone Jonatan Anthony MD Primary Care Provider [phone] Reason for Visit * Reason Comments Med Refill Encounter Details Date Type Department Care Team (Late Contact Info) Description 12/26/2022 Refill [facility] [address] [place] [address] Tyrell Oden MD [address] [place] [address] [place] [address] Social History Tobacco Use Types [...] Office Visit [facility] [address] [place] [address] Tyrell Oden MD [address] [place] [address] [place] [address] documented as of this encounter Visit Diagnoses Not on filedocumented in this encounter Care Teams Human Projectile Relationship Specialty Start Date End Date Jonatan Anthony MD [facility] [address] [place] PCP - General Internal Medicine 04/29/22 documented as of this encounter
--- OUTSIDE RECORDS SUMMARY | 2025-01-03 16:02 | XMS_ITS ---
Author Organization [facility] Tara latoya [place] Address [address] [place] [address] Care Team Providers Care Metal Sprayer Machined Parts Name Role Phone Jonatan Anthony Primary Care Provider Leticia Matthews [phone] REASON FOR VISIT Last A1C Encounters Encounter Location Date Provider Diagnosis [facility] [address] [place] [address] 01/02/2025 Leticia Dwyer Plan Of Treatment Next Appt Details Provider Name:Leticia Dwyer , 03/31/2025 09:30:00 AM, [address] [place], [address], Progress Notes * RAMONE, ManinderDOB: [birth year] (74 yo M)Acc No.[id number]:01/02/2025 Patient:?Maninder QIU :1950???Age:74 Y???Sex:Male Address:[address] [place] [address], [address] * true * Date:? Generated for Printi ng/Swati/eTransmitting on:?01/03/2025 04:01 PM EST
--- OUTSIDE RECORDS SUMMARY | 2025-01-03 16:02 | XMS_ITS | Encounter Summary ---
Author Organization [facility] Address [address] [place] [address] Phone Care Team Providers Care Treating And Pumping Supervisor Name Role Phone Jonatan Anthony MD Primary Care Provider [phone] Encounter Details Date Type Department Care Team (Late Contact Info) Description 02/09/2023 Documentation Only [facility] [address] [place] [address] Christopher Caicedo PA Social History [...] Visit [facility] [address] [place] [address] Tyrell Oden MD [address] [place] [address] [place] [address] documented as of this encounter Visit Diagnoses Not on filedocumented in this encounter Care Teams Treating And Pumping Supervisor Relationship Specialty Start Date End Date Jonatan Anthony MD [facility] INTERNAL [place] [address] [place], [place] PCP - General Internal Medicine 04/29/22 documented as of this encounter
--- OUTSIDE RECORDS SUMMARY | 2025-01-03 16:02 | XMS_ITS | Encounter Summary ---
Author Organization [facility] [place], Address [address] [place] [address] Phone Care Team Providers Care Demand Planning Analyst Name Role Phone Jonatan Anthony MD Primary Care Provider [phone] Encounter Details Date Type Department Care Team (Late Contact Info) Description 12/12/2024 Orders Only [facility] [address] [place] [address] Christopher Caicedo PA Social History [...] Visit [facility] [address] [place] [address] Tyrell Oden MD [address] [place] [address] [place] [address] documented as of this encounter [...] Creatinine, Ur 115.7 Not Estab. mg/dL [facility] Protein, Ur 37.9 Not Estab. mg/dL [facility] Urine Protein/Creati nine Ratio 328(H) 0 - 200 mg/g creat [facility] 12/12/2024 3:14 PM EST 12/12/2024 Christopher THOMAS LAB URINE ORDERABLES Final Re sult Performing Organization Address City/[facility]/ZIP Co de Phone Number [facility] [address] [place] [address] * Microscopic Examination (12/12/2024 3:14 PM EST) WBC, Urine None seen 0 - 5 /hpf [facility] RBC, Urine None seen 0 - 2 /hpf [facility] Squamous Epithelial, Urine None seen 0 - 10 /hpf [facility] Casts None seen None seen /lpf [facility] Bacteria, Urine None seen None seen/Few [facility] 12/12/2024 3:14 PM EST 12/12/2024 Christopher THOMAS LAB MICROBIOLOGY - GENERAL OR DERABLES Final Result Performing Organization Address City/[facility]/ZIP Co de Phone Number [facility] [address] [place] [address] * (ABNORMAL) Urinalysis, Complete w/reflex to Culture (12/12/2024 3:14 PM EST) Specific [place], Urine 1.026 1.005 - 1.030 [facility] pH Urine 5.5 5.0 - 7.5 [facility] Color, Urine Yellow Yellow [facility] [phone] Appearance Urine Clear Clear [facility] [place] WBC Esterase Urine Negative Negative [facility] Protein, Ur 1+(A) Negative/Tra ce [facility] Glucose, Ur 3+(A) Negative [facility] Ketones, Urine Negative Negative [facility] [place] Blood Urine Negative Negative [facility] Bilirubin Urine Negative Negative [facility] [place] [phone] Urobilinogen Urine 0.2 0.2 - 1.0 mg/dL [facility] Nitrite, Urine Negative Negative [facility] Microscopic Examination See below: [facility] Comment:Microscopic was shin cated and was performed. URINALYSIS REFLEX Comment [facility] Comment:This specimen will n ot reflex to a Urine Culture. 12/12/2024 3:14 PM EST 12/12/2024 us Christopher THOMAS LAB URINE ORDERABLES Final Re sult [facility] [address] [place] [address] documented in this encounter Visit Diagnoses Not on filedocumented in this encounter Care Teams Demand Planning Analyst Relationship Specialty Start Date End Date Jonatan Anthony MD [facility] INTER[facility] [place] [address] [place] PCP - General Internal Medicine 04/29/22 documented as of this encounter
--- OUTSIDE RECORDS SUMMARY | 2025-01-03 16:02 | XMS_ITS | Encounter Summary ---
Author Organization [facility] Address [address] [place] [address] Phone Care Team Providers Care Dental Detail Representative Name Role Phone Jonatan Anthony MD Primary Care Provider [phone] Encounter Details Date Type Department Care Team ([facility] Contact Info) Description 08/26/2024 Documentation Only [facility] [place], [address] [place] [address] Essence King ND [address] [place] [address] Social History Tobacco Use Types Packs/Day Years [...] Encounters Date Type Department Care Team ([facility] Contact Info) Description 02/14/2025 11:30 AM EDT Office Visit [facility] [place] [address] [place] [address] Tyrell Oden MD [address] [place] [address] documented as of this encounter Visit Diagnoses Not on filedocumented in this encounter Care Teams Dental Detail Representative Relationship Specialty Start Date End Date Jonatan Anthony MD [facility] [place] [address] [place], [place] PCP - General Internal Medicine 04/29/22 documented as of this encounter
--- OUTSIDE RECORDS SUMMARY | 2025-01-03 16:02 | XMS_ITS | Encounter Summary ---
Author Organization [facility] Address [address] [place] [address] Phone Care Team Providers Care Lathe Puller Name Role Phone Jonatan Anthony MD Primary Care Provider [phone] Reason for Visit * Reason Comments Med Refill Encounter Details Date Type Department Care Team ([facility] Contact Info) Description 08/27/2024 Refill [facility] [address] [place] [address] Rakesh King MD [address] [place] [address] [place] [address] Social History Tobacco Use Types [...] Upcoming Encounters Date Type Department Care Team ([facility] Contact Info) Description 02/14/2025 11:30 AM EDT Office Visit [facility] [place] [address] [place] [address] Tyrell Oden MD [address] [place] [address] documented as of this encounter Visit Diagnoses Not on filedocumented in this encounter Care Teams Lathe Puller Relationship Specialty Start Date End Date Jonatan Anthony MD [facility] [place] [address] [place] PCP - General Internal Medicine 04/29/22 documented as of this encounter
--- OUTSIDE RECORDS SUMMARY | 2025-01-03 16:02 | XMS_ITS | Clinical Summary ---
Author Organization [facility] Address [address] [place] [address] Care Team Providers Care Tractor Operator Battery Name Role Phone Pcp, No Primary Care [...] age to complete this topic Care Teams Tractor Operator Battery Relationship Specialty Start Date End Date Pcp, No [address] [place] [address] PCP - General 03/28/22
--- OUTSIDE RECORDS SUMMARY | 2025-01-03 16:02 | XMS_ITS | Encounter Summary ---
Author Organization [facility] Address [address] [place] [address] Phone Care Team Providers Care Mechanical Planner Name Role Phone Jonatan Anthony MD Primary Care Provider [phone] Encounter Details Date Type Department Care Team ([facility] Contact Info) Description 07/31/2023 Documentation Only [facility] [address] [address] Angie Martinez [address] [place] [phone] Social History Tobacco Use Types Packs/Day Years [...] Visit [facility] [place] [address] [address] Tyrell Oden MD [address] [facility] [place] [address] documented as of this encounter Visit Diagnoses Not on filedocumented in this encounter Care Teams Mechanical Planner Relationship Specialty Start Date End Date Jonatan Anthony MD [facility] INTERNAL [place] [address] [place] PCP - General Internal Medicine 04/29/22 documented as of this encounter
--- OUTSIDE RECORDS SUMMARY | 2025-01-03 16:02 | XMS_ITS | Encounter Summary ---
Author Organization [facility], Address [address] [place] [address] Phone Care Team Providers Care Derrick Barge Operator Name Role Phone Jonatan Anthony MD Primary Care Provider [phone] Reason for Visit * Reason Comments Med Refill Encounter Details Date Type Department Care Team (Late Contact Info) Description 06/27/2023 Refill [facility] [address] [place] [address] Christopher Caicedo PA Social History [...] Encounters Date Type Department Care Team ([facility] Contact Info) Description 02/14/2025 11:30 AM EDT Office Visit [facility] [address] [place] [address] Tyrell Oden MD [address] [place] [address] [place] [address] documented as of this encounter Visit Diagnoses Not on filedocumented in this encounter Care Teams Derrick Barge Operator Relationship Specialty Start Date End Date Jonatan Anthony MD [facility] [place] [address] [place] PCP - General Internal Medicine 04/29/22 documented as of this encounter
--- OUTSIDE RECORDS SUMMARY | 2025-01-03 16:02 | XMS_ITS | Encounter Summary ---
Author Organization [facility], Address [address] [place] [address] Phone Care Team Providers Care Communication Skills Instructor Name Role Phone Jonatan Anthony MD Primary Care Provider [phone] Reason for Visit * Reason Comments Med Refill Encounter Details Date Type Department Care Team (Late Contact Info) Description 02/24/2023 Refill [facility] [address] [place] [address] Christopher Caicedo PA Social History [...] Upcoming Encounters Date Type Department Care Team ([facility] Contact Info) Description 02/14/2025 11:30 AM EDT Office Visit [facility] [address] [place] [address] Tyrell Oden MD [address] [place] [address] [place] [address] documented as of this encounter Visit Diagnoses Not on filedocumented in this encounter Care Teams Communication Skills Instructor Relationship Specialty Start Date End Date Jonatan Anthony MD [facility] [place] [address] [place] PCP - General Internal Medicine 04/29/22 documented as of this encounter
--- OUTSIDE RECORDS SUMMARY | 2025-01-03 16:02 | XMS_ITS | Encounter Summary ---
Author Organization [facility] Address [address] [place] [address] Phone Care Team Providers Care Pipe Stripper Name Role Phone Jonatan Anthony MD Primary Care Provider [phone] Encounter Details Date Type Department Care Team ([facility] Contact Info) Description 09/21/2023 Documentation Only [facility] [address] [place] [address] Tyrell Oden MD [address] [place] [address] [place] [address] Social History Tobacco Use Types [...] Visit [facility] [place] [address] [address] Tyrell Oden MD [address] [place] [address] [place] [address] documented as of this encounter Visit Diagnoses Not on filedocumented in this encounter Care Teams Pipe Stripper Relationship Specialty Start Date End Date Jonatan Anthony MD [facility] INTER[facility] MD [address] [place] PCP - General Internal Medicine 04/29/22 documented as of this encounter
--- OUTSIDE RECORDS SUMMARY | 2025-01-03 16:02 | XMS_ITS | Encounter Summary ---
Author Organization [facility] Address [address] [place] [address] Phone Care Team Providers Care Supervisor Residential Name Role Phone Jonatan Anthony MD Primary Care Provider [phone] Encounter Details Date Type Department Care Team ([facility] Contact Info) Description 01/06/2023 Documentation Only [facility] [place], [address] [place] [address] Essence King [place] [address] [place] [address] Social History Tobacco Use Types Packs/Day Years [...] Visit [facility] [place] [address] [place] [address] Tyrell Oden MD [address] [place] [address] documented as of this encounter Visit Diagnoses Not on filedocumented in this encounter Care Teams Supervisor Residential Relationship Specialty Start Date End Date Jonatan Anthony MD [facility] [place] [address] [place], [place] PCP - General Internal Medicine 04/29/22 documented as of this encounter
--- OUTSIDE RECORDS SUMMARY | 2025-01-03 16:02 | XMS_ITS ---
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 Vital Signs Height 5ft6in in 12/26/2024 Weight 175 lbs 12/26/2024 BMI 28.24 kg/m2 12/26/2024 Blood pressure systolic 160 mm Hg 12/26/19 25 Blood pressure diastolic 60 mm Hg 025 Procedures Procedure Date Ordered Date Performed Result Body Sit e 26181-LOZGVWT NAIL, 6 OR MORE 12/26/2024 N/A 83854-SLLI SKIN LESIONS, 2 TO 4 12/26/2024 N/A Encounters Encounter Location Date Provider Diagnosis [facility] [address] [address] 12/26/2024 Leticiacandis Dwyer Type 2 diabetes mellitus with diabetic [...] THERAPY.pdf) Pending Test Test Name Order Date 03143-WOZBXWD NAIL, 6 OR MORE 12/26/2024 47200-RLIP SKIN LESIONS, 2 TO 4 12/26/19 25 Next Appt Details Follow Up: prn, Reason: Provider Name:Leticia Dwyer , 03/31/2025 09:30:00 AM, [address] [place], [address], Procedure Notes * Category Sub-Category [...] use of a nail nipper and/or dremel-type tool grinder operator surface, to a more viable healthy nail plate [...] to maintain effectiveness in symptomatic relief - 73421 Keratoma Treatment Parring or Cutting o f [...] instrumentation by the physician of record - 84765 Progress Notes * Maninder PACKDOB: [birth year] (74 yo M)Acc No.[id number]:12/26/2024 Progress Note Patient:?Maninder PACK Provider:?Leticia Dwyer DPM :1950???Age:74 Y???Sex:Male Sean e:12/26/2024 Address:[address] [place], [place] [id number] Pcp:Jonatan Anthony Subjective: * Chief Complaints: * [...] Cramps/ Resting?denies.?Muscle cramps / walking?denies.?Generalized aches and pains?denies.?Weakness?denies.?Integ.:?Holilday?denies.?Scars?denies.?Corns/calluses?admits.?Ingrown nails?admits.?Painful nails?admits.?Open Sores?denies.?Rashes?denies.?Neurologic:?Difficulty sleeping?denies.?Brain disorder?denies.?Numbness?denies.?Balance t rouble?denies.?Confusion?denies.?Fainting/blackouts?denies.?Tingling?denies.?Shekhar [...] yes, walking. ?Marital status: . 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 * Medications:?TakingMultivita min Stool Softener , Notes [...] taken, Ht-cm: 167.64 cm, Wt-k.38 kg. * ???Past Orders: ???Lab:HEMOGLOBIN A1C (GLYCO HEMOGLOBIN) (Order Date - 09/30/2024) (Collection Date & Time - 09/30/2024 12:27 PM) ? Value Reference Range ?HEMOGLOBIN A1C % (HH) 5.4 * Examination: ???CQM Exceptions:: ?Hemoglobin A1c not [...] posterior and posterior/superior heel present, LEFT foot,Neg [place].? Assessment: * Assessment: 1.?Type 2 diabetes mellitus [...] 2.?Type 2 diabetes mellitus with diabetic polyneuropathy?Procedure: 04931-FLIO SKIN LESIONS, 2 TO 4 3.?Tinea unguium?Procedure: 54745-CXQUJLF NAIL, 6 OR MORE * Procedures:?Debride Nail [...] of a nail nipper and/or dremel- type tool grinder operator surface, to a more viable healthy nail plate [...] to maintain effectiveness in symptomatic relief - 41864.?Keratoma Treatment:?Parring or Cutting of Benign Hyperkeratotic Lesion(s)?(-56) [...] instrumentation by the physician of record - 33506.? * Procedure Codes:?61880 DEBRI DE NAIL, 6 OR MORE, Modifiers: XS 51642 TRIM SKIN LESIONS, 2 TO 4, Modifiers: [...] Interfil injection therapy, as well as surgical [place]/Calcanectomy- tendon debridement surgical procedures if needed. Recommendations [...] Sign off status: Completed true * Provider:?Leticia Dwyer DPM Date:?2024 Generated for Sven montes/Swati/Navya on:?01/03/2025 04:02 PM EST History and Physical Notes * HPI [...] and posterior/superior heel present, LEFT foot, Neg [place] CQM Exceptions: Hemoglobin A1c not performed Reason:: No reason specified
--- OUTSIDE RECORDS SUMMARY | 2025-01-03 16:02 | XMS_ITS | Encounter Summary ---
Author Organization [facility] Address [address] [place] [address] Phone Care Team Providers Care Conflicts Analyst Name Role Phone Jonatan Anthony MD Primary Care Provider [phone] Encounter Details Date Type Department Care [facility] ([facility] Contact [facility] Description 10/28/2024 Documentation Only [facility] [place], [address] [place] [address] Maddy Nunez [place] [address] [place] [address] Social History Tobacco Use Types [...] Visit [facility] [place] [address] [place] [address] Tyrell Oden MD [address] [facility] [place] [address] documented as of this encounter Visit Diagnoses Not on filedocumented in this encounter Care Teams Conflicts Analyst Relationship Specialty Start Date End Date Jonatan Anthony MD [facility] [place] [address] [place] PCP - General Internal Medicine 04/29/22 documented as of this encounter
--- OUTSIDE RECORDS SUMMARY | 2025-01-03 16:02 | XMS_ITS | Encounter Summary ---
Author Organization [facility] [place], Address [address] [place] [address] Phone Care Team Providers Care Natural Sciences Manager Name Role Phone Jonatan Anthony MD Primary Care Provider [phone] Encounter Details Date Type Department Care Team (Latest Contact Info) Description 12/13/2024 10:00 AM EST Office Visit [facility] [address] [place] [address] Tyrell Oden MD [address] [place] [address] 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 Other variants of unknown significance also detected. See Jose Macdonald report from 05/23/2021. Dialysis History: [x]Y/ []N: Type/Date In-center hemodialysis [facility] 03/04/2019 Dialysis Access: Prior Transplants: []Y/ [x] N: Date/ Immuno regimen/ Failure Reason Current Transplant Date of Surgery: 09/30/2021 Transplant Program: [facility] Donor Type: [x]DD []DCD []DBD [...] prior biopsy at 6 weeks post-transplant (see [id number]) is reviewed for comparison. The currentbiopsy shows [...] ??? Transfusion of blood product declined for scientology reason 01/06/2022 ??? Proteinuria 01/06/2022 ??? Kidney [...] Visit [facility] [address] [place] [address] Tyrell Oden MD [address] [facility] 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
--- OUTSIDE RECORDS SUMMARY | 2025-01-03 16:02 | XMS_ITS | Encounter Summary ---
Author Organization [facility] Address [address] [place] [address] Phone Care Team Providers Care Merchandise Adjustment Clerk Name Role Phone Jonatan Anthony MD Primary Care Provider [phone] Encounter Details Date Type Department Care Team (Late Contact Info) Description 06/13/2023 Documentation Only [facility] [address] [place] [address] Christopher Caicedo PA Social History [...] [facility] [address] [place] [address] Tyrell Oden MD [address] [place] [address] [place] [address] documented as of this encounter Visit Diagnoses Not on filedocumented in this encounter Care Teams Merchandise Adjustment Clerk Relationship Specialty Start Date End Date Jonatan Anthony MD [facility] INTERNAL [place] [address] [place], [place] PCP - General Internal Medicine 04/29/22 documented as of this encounter
--- OUTSIDE RECORDS SUMMARY | 2025-01-03 16:02 | XMS_ITS | Encounter Summary ---
Author Organization [facility] Address [address] [place] [address] Phone Care Team Providers Care Sheet Metal Worker Supervisor Name Role Phone Jonatan Anthony MD Primary Care Provider [phone] Encounter Details Date Type Department Care Team ([facility] Contact Info) Description 09/17/2024 Documentation Only [facility] [place], [address] [place] [address] Maddy Nunez [place] [address] [place] [address] Social History Tobacco Use Types [...] Visit [facility] [place] [address] [place] [address] Tyrell Oden MD [address] [facility] [place] [address] documented as of this encounter Visit Diagnoses Not on filedocumented in this encounter Care Teams Sheet Metal Worker Supervisor Relationship Specialty Start Date End Date Jonatan Anthony MD [facility] [place] [address] [place] PCP - General Internal Medicine 04/29/22 documented as of this encounter
--- OUTSIDE RECORDS SUMMARY | 2025-01-03 16:02 | XMS_ITS | Encounter Summary ---
Author Organization [facility], Address [address] [place] [address] Phone Care Team Providers Care Production Recorder Name Role Phone Jonatan Anthony MD Primary Care Provider [phone] Reason for Visit * Reason Comments Med Refill Encounter Details Date Type Department Care Team (Late Contact Info) Description 04/23/2023 Refill [facility] [address] [place] [address] Tyrell Oden MD [address] [place] [address] [place] [address] Social History Tobacco Use Types [...] Office Visit [facility] [address] [place] [address] Tyrell Oden MD [address] [place] [address] [place] [address] documented as of this encounter Visit Diagnoses Not on filedocumented in this encounter Care Teams Production Recorder Relationship Specialty Start Date End Date Jonatan Anthoyn MD [facility] [address] [place] PCP - General Internal Medicine 04/29/22 documented as of this encounter
--- OUTSIDE RECORDS SUMMARY | 2025-01-03 16:02 | XMS_ITS ---
Author Organization [facility] Brad latoya [place] Address [address] [facility] [place] [address] Care Team Providers Care Tier In Name Role Phone Jonatna Anthony Primary Care Provider Nichole DwyerTaylere Unavailable [phone] Allergies Allergen (clinical drug ingredient) Drug/Non Drug [...] an other tobacco user? No Vital Signs Height 5ft6in in 09/19/2024 Weight 177 lbs 09/19/2024 BMI 28.57 kg/m2 09/19/2024 Blood pressure systolic 150 mm Hg 09/19/20 24 Blood pressure diastolic 60 mm Hg 024 Procedures Procedure Date Ordered Date Performed Result Body Sit e 23703-BDPHTXY NAIL, 6 OR MORE 09/19/2024 N/A 96216-UFCU SKIN LESIONS, 2 TO 4 09/19/2024 N/A Encounters Encounter Location Date Provider Diagnosis [facility] [address] [address] 09/19/2024 Leticia Dwyer Type 2 diabetes mellitus [...] Treatment Pending Test Test Name Order Date 91299-ZTYSTOS NAIL, 6 OR MORE 09/19/2024 00378-JLQY SKIN LESIONS, 2 TO 4 09/19/20 24 Next Appt Details Follow Up: prn, Reason: Provider Name:Leticia Dwyer , 03/31/2025 09:30:00 AM, [address] [place], [address], Procedure Notes * Category Sub-Category Detail Notes [...] as necessary. Patient chooses, no pharmaceutical tx (33209) Keratoma Treatment Parring or Cutting o f Benign Hyperkeratotic Lesion(s) 99570 (2-4 Lesions) - The Benign hyperkeratotic lesions, as described above were pared, and/or cut utilizing a sterile #15 blade, tissue nippers, and/or dremel Progress Notes * Maninder PACKDOB: [birth year] (74 yo M)Acc No.[id number]:09/19/2024 Progress Note Patient:?Maninder Pack Provider:?Leticia TERI Dwyer :1950???Age:74 Y???Sex:Male Sean e:09/19/2024 Address:[address] [place], [place] [id number] Pcp:Jonatan Anthony Subjective: * Chief Complaints: * [...] yes, walking. ?Marital status: . 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 * Medications:?TakingMultivita min Stool Softener , Notes: [...] - M77.41? Plan: * Treatment: 2.?Tinea unguium?Procedure: 89975-QQKMAQU NAIL, 6 OR MORE * Procedures:?Debride Nail 6-10:?Nail debridement?Nail debridement performed extensively to reduce/remove overall nail length and girth, subungual debris, and necrotic tissue, by manual and electrical means with use of a nail nipper and/or dremel, to more viable healthy nail plate or bed tissue 6-10. Silver nitrate used for any petechial bleeding as necessary. Patient chooses, no pharmaceutical tx (70765).?Keratoma Treatment:?Parring or Cutting of Benign Hyperkeratotic Lesion(s)?24234 (2-4 Lesions) - The Benign hyperkeratotic lesions, as described above were pared, and/or cut utilizing a sterile #15 blade, tissue nippers, and/or dremel.? * Procedure Codes:?49012 DEBRI DE NAIL, 6 OR MORE, Modifiers: XS 23098 TRIM SKIN LESIONS, 2 TO 4, Modifiers: [...] status: Completed true * Provider:?Leticia Dwyer DPM Date:?2023 Generated for Sven montes/Swati/eTperezsmitting on:?01/03/2025 04:01 PM EST History and Physical Notes * [...]
--- OUTSIDE RECORDS SUMMARY | 2025-01-03 16:02 | XMS_ITS | Clinical Summary ---
Author Organization [facility], Address [address] [place] [address] Phone Care Team Providers Care Wildlife Rehabilitator Name Role Phone Jonatan Anthony MD Primary Care Provider [phone] Allergies Active Allergy Reactions Criticality Noted Date [...] Visit [facility] [address] [place] [address] Tyrell Oden MD Kidney replaced by transplant (Primary Dx); Personal history of immunosuppression therapy; Stage 3b chronic kidney disease (HCC); Type 2 diabetes mellitus with diabetic chronic kidney disease (HCC); Essential hypertension; Anemia in chronic kidney disease 12/12/2024 Orders Only [facility] [address] [place] [address] Christopher Caicedo PA 11/29/2024 Refill [facility] [address] [place] [address] Christopher Caicedo PA 11/01/2024 Telephone [facility] [address] [place] [address] Essence King MA 10/28/2024 Documentation Only [facility] [address] [place] [address] Maddy Nunez MA 10/18/2024 Telephone [facility] [address] [place] [address] Maddy uNnez MA 10/11/2024 9:30 AM EST Office Visit [facility] [address] [place] [address] Christopher Caicedo PA Kidney replaced by transplant [...] Visit [facility] [address] [place] [address] Tyrell Oden MD [address] [place] [address] [place] [address] Health Maintenance Due Date Last Done Comments [...] resultswithin the time period is included. Specific [place], Urine 1.026 1.005 - 1.030 [facility] pH Urine 5.5 5.0 - 7.5 [facility] Color, Urine Yellow Yellow [facility] Appearance Urine Clear Clear [facility] WBC Esterase Urine Negative Negative [facility] Protein, Ur 1+(A) Negative/Tra ce [facility] Glucose, Ur 3+(A) Negative [facility] Ketones, Urine Negative Negative [facility] Blood Urine Negative Negative [facility] Bilirubin Urine Negative Negative [facility] Urobilinogen Urine 0.2 0.2 - 1.0 mg/dL [facility] Nitrite, Urine Negative Negative [facility] [phone] Microscopic Examination See below: [facility] Comment:Microscopic was shin cated and was performed. URINALYSIS REFLEX Comment [facility] Comment:This specimen will n ot reflex to a Urine Culture. 12/12/2024 3:14 PM EST 12/12/2024 Christopher THOMAS [facility] URINE ORDERABLES Final Re sult [facility] [address] [place] [address] * Microscopic Examination (12/12/2024 3:14 PM EST) Only the most recent of2 resultswithin the time period is included. WBC, Urine None seen 0 - 5 /hpf [facility] RBC, Urine None seen 0 - 2 /hpf [facility] Squamous Epithelial, Urine None seen 0 - 10 /hpf [facility] Casts None seen None seen /lpf [facility] Bacteria, Urine None seen None seen/Few [facility] 12/12/2024 3:14 PM EST 12/12/2024 Christopher THOMAS [facility] MICROBIOLOGY - GENERAL OR DERABLES Final Result [facility] [address] [place] [address] * (ABNORMAL) Protein, Total, Random Urine w/Creatinine (Protein/Creat Ratio) (12/12/2024 3:14 PM EST) Only the most recent of2 resultswithin the time period is included. Creatinine, Ur 115.7 Not Estab. mg/dL [facility] Protein, Ur 37.9 Not Estab. mg/dL [facility] Urine Protein/Creati nine Ratio 328(H) 0 - 200 mg/g creat [facility] 12/12/2024 3:14 PM EST 12/12/2024 Christopher THOMAS LAB URINE ORDERABLES Final Re sult [facility] [address] [place] [address] * Mycophenolic Acid (12/12/2024 8:23 AM EST) Pathologist [facility] Mycophenolic Acid 1.2 1.0 - 3.5 ug/mL [facility] Mycophenolic Acid Glucuronide 63 15 - 125 ug/mL [facility] Blood (Blood, Venous) 12/12/2024 8:23 AM EST 12/12/2024 Narrative [facility] - 12/17/2024 12:06 PM EST Test(s) 783596-Nnxceymgtuik Acid; 215175- Mycophenolic Acid Glucuronide was developed and its performance characteristics determined by [employer]. It has not been cleared or approved by the Food and Drug Administration. Christopher THOMAS [facility] BLOOD ORDERABLES Final Re sult [facility] [address] [place] [address] * (ABNORMAL) CBC and Differential (12/12/2024 8:23 AM EST) Only the most recent of2 resultswithin the time period is included. WBC 3.2(L) 3.4 - 10.8 x10E3/uL [facility] RBC 4.27 4.14 - 5.80 x10E6/uL [facility] Hemoglobin 12.7(L) 13.0 - 17.7 g/dL [facility] Hematocrit 39.6 37.5 - 51.0 % [facility] MCV 93 79 - 97 fL [facility] MCH 29.7 26.6 - 33.0 pg [facility] MCHC 32.1 31.5 - 35.7 g/dL [facility] RDW 13.0 11.6 - 15.4 % [facility] Platelets 184 150 - 450 x10E3/uL [facility] Neutrophils Relative 44 Not Estab. % [facility] Lymphocytes Relative 38 Not Estab. % [facility] Monocytes 10 Not Estab. % [facility] Eosinophils Relative 4 Not Estab. % [facility] Basophils Relative 2 Not Estab. % [facility] Neutrophils Absolute 1.4 1.4 - 7.0 x10E3/uL [facility] Lymphocytes Absolute 1.2 0.7 - 3.1 x10E3/uL [facility] Monocytes Absolute 0.3 0.1 - 0.9 x10E3/uL [facility] Eosinophils Absolute 0.1 0.0 - 0.4 x10E3/uL [facility] Basophils Absolute 0.1 0.0 - 0.2 x10E3/uL [facility] Immature Granulocytes 2 Not Estab. % [facility] Immature Grans (Absolute) 0.1 0.0 - 0.1 x10E3/uL [facility] Blood (Blood, Venous) 12/12/2024 8:23 AM EST 12/12/2024 Christopher THOMAS LAB BLOOD ORDERABLES Final Re sult Performing Organization Address City/[facility]/ZIP Co de Phone Number [facility] [address] [place] [address] * ALT (12/12/2024 8:23 AM EST) Only the most recent of2 resultswithin the time period is included. ALT (SGPT) 21 0 - 44 IU/L [facility] Blood (Blood, Venous) 12/12/2024 8:23 AM EST 12/12/2024 Christopher THOMAS LAB BLOOD ORDERABLES Final Re sult Performing Organization Address [facility] Co de Phone Number [facility] [address] [place] [address] * AST (12/12/2024 8:23 AM EST) Only the most recent of2 resultswithin the time period is included. AST (SGOT) 22 0 - 40 IU/L [facility] Blood (Blood, Venous) 12/12/2024 8:23 AM EST 12/12/2024 Christopher THOMAS LAB BLOOD ORDERABLES Final Re sult Performing Organization Address City/[facility]/ZIP Co de Phone Number [facility] [address] [place] [address] * CK (12/12/2024 8:23 AM EST) Only the most recent of2 resultswithin the time period is included. Creatine Kinase (CK/CPK) 41 41 - 331 U/L [facility] Blood (Blood, Venous) 12/12/2024 8:23 AM EST 12/12/2024 Christopher THOMAS LAB BLOOD ORDERABLES Final Re sult [facility] [address] [place] [address] * (ABNORMAL) Renal Function Panel (12/12/2024 8:23 AM EST) Only the most recent of2 resultswithin the time period is included. Glucose 150(H) 70 - 99 mg/dL [facility] BUN 35(H) 8 - 27 mg/dL [facility] Creatinine 1.75(H) 0.76 - 1.27 mg/dL [facility] eGFR CKD-EPI CR 2020 40(L) >59 mL/min/1.7 3 [facility] BUN/Creatinine Ratio 20 10 - 24 [facility] Sodium 142 134 - 144 mmol/L [facility] Potassium 4.3 3.5 - 5.2 mmol/L [facility] Chloride 110(H) 96 - 106 mmol/L [facility] Bicarbonate (CO2) 20 20 - 29 mmol/L [facility] Calcium 10.6(H) 8.6 - 10.2 mg/dL [facility] Comment:Verified by repeat analysis Albumin 3.9 3.8 - 4.8 g/dL [facility] Phosphorus 2.9 2.8 - 4.1 mg/dL [facility] Blood (Blood, Venous) 12/12/2024 8:23 AM EST 12/12/2024 Christopher THOMAS LAB BLOOD ORDERABLES Final Re sult Performing Organization Address City/[facility]/ZIP Co de Phone Number [facility] [address] [place] [address] * Potassium (10/24/2024 10:21 AM EST) Potassium 4.5 3.5 - 5.2 mmol/L [facility] Blood (Blood, Venous) 10/24/2024 10:21 AM EST 10/24/2024 Christopher THOMAS LAB BLOOD ORDERABLES Final Re sult Performing Organization Address [facility] Co de Phone Number [facility] [address] [place] [address] * BK Virus, Quantitative PCR, Urine (10/09/2024 10:12 AM EST) BKV DNA # Ur PCR 1,430,000 Negative IU/mL [facility] Comment:The linear range of the assay is 200 - 100,000,000 IU/ml log10 BK Qn PCR Ur 6.155 log10 IU/mL [facility] 10/09/2024 10:1 2 AM EST 10/09/2024 Christopher THOMAS LAB URINE ORDERABLES Final Re sult Performing Organization Address City/[facility]/ZIP Co de Phone Number [facility] [address] [place] [address] * Reflexive Urine Culture (10/09/2024 10:12 AM EST) Culture Result, Urine Final report [facility] Result No growth [facility] 10/09/2024 10:1 2 AM EST 10/09/2024 Christopher THOMAS LAB [id number] SOLICITED RESULTS Final Result [facility] [address], [address] [place] [address] * TSH (10/09/2024 10:12 AM EST) TSH 1.270 0.450 - 4.500 uIU/mL [facility] Blood 10/09/2024 10:1 2 AM EST 10/09/2024 Christopher THOMAS LAB BLOOD ORDERABLES Final Re sult [facility] [address] [place] [address] * (ABNORMAL) Iron Panel (Fe, TIBC, TSAT) (10/09/2024 10:12 AM EST) UIBC 165 111 - 343 ug/dL [facility] TIBC 237(L) 250 - 450 ug/dL [facility] Iron 72 38 - 169 ug/dL [facility] Iron Saturation (TSat) 30 15 - 55 % [facility] Blood (Blood, Venous) 10/09/2024 10:12 AM EST 10/09/2024 Christopher THOMAS LAB BLOOD ORDERABLES Final Re sult [facility] [address] [place] [address] * BK Virus Urine, Quant PCR (10/09/2024 10:12 AM EST) BK VIRUS PCR, QUANT, U See Final Results Negative IU/mL [facility] Comment:The linear range of the assay is 200 - 100,000,000 IU/ml Urine (Urine, Clean Catch) 10/09/2024 10:12 AM EST 10/09/2024 Christopher THOMAS LAB URINE ORDERABLES Final Re sult Performing Organization Address [facility] Co de Phone Number [facility] [address] [place] [address] * BK Virus DNA, Quant PCR (10/09/2024 10:12 AM EST) BK VIRUS DNA, PCR 53 Negative IU/mL [facility] Comment:The linear range of the assay is 22 - 100,000,000 IU/mL. log10 BK Qn PCR, Plasma or Serum 1.724 log10 IU/mL [facility] Blood (Blood, Venous) 10/09/2024 10:12 AM EST 10/09/2024 Christopher THOMAS LAB BLOOD ORDERABLES Final Re sult Performing Organization Address City/[facility]/ZIP Co de Phone Number [facility] [address] [place] [address] * Vitamin D 25 Hydroxy (10/09/2024 10:12 AM EST) Vitamin D, 25-OH, Total 35.0 30.0 - 100.0 ng/mL [facility] Comment: Vitamin D deficiency has been defined by the [place] of [employer] and an Endocrine Society practice guideline as a level of serum 25-OH vitamin D less than 20 ng/mL (1,2). The Endocrine Society went on to further define vitamin D insufficiency as a level between 21 and 29 ng/mL (2). 1. IOM ([place] of Medicine). 2010. Dietary reference ?? intakes for calcium and D. [place]: The ?? [employer] Press. 2. Yao MF, Santosh LEIGH, Mele HURTADO, et al. ?? Evaluation, treatment, and prevention of vitamin D ?? deficiency: an Endocrine Society clinical practice ?? guideline. JCEM. 2010; 96(1):1911-30. Blood (Blood, Venous) 10/09/2024 10:12 AM EST 10/09/2024 Christopher THOMAS LAB BLOOD ORDERABLES Final Re sult Performing Organization Address City/[facility]/ZIP Co de Phone Number [facility] [address] [place] [address] * Uric Acid (10/09/2024 10:12 AM EST) Uric Acid 6.0 3.8 - 8.4 mg/dL [facility] Comment:Therapeutic target f or gout patients: <6.0 Blood (Blood, Venous) 10/09/2024 10:12 AM EST 10/09/2024 Christopher THOMAS LAB BLOOD ORDERABLES Final Re sult Performing Organization Address City/[facility]/ZIP Co de Phone Number [facility] [address] [place] [address] * Free T4 (10/09/2024 10:12 AM EST) Free T4 1.31 0.82 - 1.77 ng/dL [facility] Blood (Blood, Venous) 10/09/2024 10:12 AM EST 10/09/2024 Christopher THOMAS LAB BLOOD ORDERABLES Final Re sult Performing Organization Address City/[facility]/ZIP Co de Phone Number [facility] [address] [place] [address] * (ABNORMAL) PTH, Intact (10/09/2024 10:12 AM EST) PTH 216(H) 15 - 65 pg/mL [facility] Blood (Blood, Venous) 10/09/2024 10:12 AM EST 10/09/2024 Christopher THOMAS LAB BLOOD ORDERABLES Final Re sult Performing Organization Address [facility] Co de Phone Number [facility] [address] [place] [address] * Magnesium (10/09/2024 10:12 AM EST) Magnesium 2.0 1.6 - 2.3 mg/dL [facility] Blood (Blood, Venous) 10/09/2024 10:12 AM EST 10/09/2024 Christopher THOMAS LAB BLOOD ORDERABLES Final Re sult Performing Organization Address City/[facility] Co de Phone Number [facility] [address] [place] [address] * (ABNORMAL) Hemoglobin A1c (10/09/2024 10:12 AM EST) Hemoglobin A1C 5.8(H) 4.8 - 5.6 % [facility] Comment: ? Prediabetes: 5.7 - 6.4 ? Diabetes: >6.4 ? Glycemic control for adults with diabetes: <7.0 Blood (Blood, Venous) 10/09/2024 10:12 AM EST 10/09/2024 Christopher THOMAS LAB BLOOD ORDERABLES Final Re sult [facility] [address] [place] [address] * (ABNORMAL) Ferritin (10/09/2024 10:12 AM EST) Ferritin 864(H) 30 - 400 ng/mL [facility] Blood (Blood, Venous) 10/09/2024 10:12 AM EST 10/09/2024 Christopher THOMAS LAB BLOOD ORDERABLES Final Re sult Performing Organization Address City/[facility]/ZIP Co de Phone Number [facility] [address] [place] [address] * (ABNORMAL) Lipid panel (10/09/2024 10:12 AM EST) Cholesterol 190 100 - 199 mg/dL [facility] Triglycerides 157(H) 0 - 149 mg/dL [facility] HDL 56 >39 mg/dL [facility] VLDL Cholesterol Cruz 27 5 - 40 mg/dL [facility] LDL Calculated 107(H) 0 - 99 mg/dL [facility] Blood (Blood, Venous) 10/09/2024 10:12 AM EST 10/09/2024 Christopher THOMAS LAB BLOOD ORDERABLES Final Re sult [facility] [address] [place] [address] from Last 3 Months Insurance [facility] MEDICARE MEDICARE [facility] Care Teams Wildlife Rehabilitator Relationship Specialty Start Date End Date Jonatan Anthony MD [facility] [place] [address] [place], [place] PCP - General Internal Medicine 04/29/22
--- OUTSIDE RECORDS SUMMARY | 2025-01-03 16:02 | XMS_ITS | Encounter Summary ---
Author Organization [facility] Address [address] [place] [address] Phone Care Team Providers Care Banana Grader Name Role Phone Jonatan Anthony MD Primary Care Provider [phone] Reason for Visit * Reason Comments Med Refill Encounter Details Date Type Department Care Team (Late Contact Info) Description 03/27/2024 Refill [facility] [place], [address] [place] [address] Giuliano Shirley MD [facility] [place] [address] Social History Tobacco Use Types [...] Visit [facility] [address] [place] [address] Tyrell Oden MD [address] [place] [address] documented as of this encounter Visit Diagnoses Not on filedocumented in this encounter Care Teams Banana Grader Relationship Specialty Start Date End Date Jonatan Anthony MD [facility] [address] [place] PCP - General Internal Medicine 04/29/22 documented as of this encounter
--- OUTSIDE RECORDS SUMMARY | 2025-01-03 16:02 | XMS_ITS | Encounter Summary ---
Author Organization [facility] Address [address] [place] [address] Phone Care Team Providers Care Plant Supervisor Name Role Phone Jonatan Anthony MD Primary Care Provider [phone] Encounter Details Date Type Department Care Team ([facility] Contact Info) Description 08/26/2024 Documentation Only [facility] [place], [address] [place] [address] Essence King [place] [address] [place] [phone] Social History Tobacco Use Types Packs/Day Years [...] Upcoming Encounters Date Type Department Care Team ([facility] Contact Info) Description 02/14/2025 11:30 AM EDT Office Visit [facility] [address] [place] [address] Tyrell Oden MD [address] [place] [address] documented as of this encounter Visit Diagnoses Not on filedocumented in this encounter Care Teams Plant Supervisor Relationship Specialty Start Date End Date Jonatan Anthony MD [facility] [place] [address] [place], [place] PCP - General Internal Medicine 04/29/22 documented as of this encounter
--- OUTSIDE RECORDS SUMMARY | 2025-01-03 16:02 | XMS_ITS | Encounter Summary ---
Author Organization [facility], Address [address] [place] [address] Phone Care Team Providers Care Running Specialist Name Role Phone Jonatan Anthony MD Primary Care Provider [phone] Reason for Visit * Reason Comments Med Refill Encounter Details Date Type Department Care Team (Late Contact Info) Description 01/31/2023 Refill [facility] [address] [place] [address] Christopher Caicedo PA Social History [...] Upcoming Encounters Date Type Department Care Team ([facility] Contact Info) Description 02/14/2025 11:30 AM EDT Office Visit [facility] [address] [place] [address] Tyrell Oden MD [address] [place] [address] [place] [address] documented as of this encounter Visit Diagnoses Not on filedocumented in this encounter Care Teams Running Specialist Relationship Specialty Start Date End Date Jonatan Anthony MD [facility] [address] [place] PCP - General Internal Medicine 04/29/22 documented as of this encounter
--- OUTSIDE RECORDS SUMMARY | 2025-01-03 16:02 | XMS_ITS | Encounter Summary ---
Author Organization [facility] Address [address] [place] [address] Phone Care Team Providers Care Stud Driver Name Role Phone Jonatan Anthony MD Primary Care Provider [phone] Encounter Details Date Type Department Care Team (Late Contact Info) Description 06/13/2023 Documentation Only [facility] [address] [place] [address] Christopher Caicedo PA Social History [...] Visit [facility] [address] [place] [address] Tyrell Oden MD [address] [place] [address] [place] [address] documented as of this encounter Visit Diagnoses Not on filedocumented in this encounter Care Teams Stud Driver Relationship Specialty Start Date End Date Jonatan Anthony MD [facility] [place] [address] [place], [place] PCP - General Internal Medicine 04/29/22 documented as of this encounter
--- OUTSIDE RECORDS SUMMARY | 2025-01-03 16:02 | XMS_ITS | Encounter Summary ---
Author Organization [facility], Address [address] [place] [address] Phone Care Team Providers Care Hosiery Looper Name Role Phone Jonatan Anthony MD Primary Care Provider [phone] Reason for Visit * Reason Comments Med Refill Encounter Details Date Type Department Care Team (Late Contact Info) Description 11/18/2022 Refill [facility] [address] [place] [address] Tyrell Oden MD [address] [place] [address] [place] [address] Social History Tobacco Use Types [...] Office Visit [facility] [address] [place] [address] Tyrell Oden MD [address] [place] [address] [place] [address] documented as of this encounter Visit Diagnoses Not on filedocumented in this encounter Care Teams Hosiery Looper Relationship Specialty Start Date End Date Jonatan Anthony MD [facility] [address] [place] PCP - General Internal Medicine 04/29/22 documented as of this encounter
--- OUTSIDE RECORDS SUMMARY | 2025-01-03 16:02 | XMS_ITS | Encounter Summary ---
Author Organization [facility], Address [address] [place] [address] Phone Care Team Providers Care Blocker And Polisher Gold Wheel Name Role Phone Jonatan Anthony MD Primary Care Provider [phone] Reason for Visit * Reason Comments Med Refill Encounter Details Date Type Department Care Team (Late Contact Info) Description 06/21/2023 Refill [facility] [address] [place] [address] Tyrell Oden MD [address] [place] [address] [place] [address] Social History Tobacco Use Types [...] Office Visit [facility] [address] [place] [address] Tyrell Oden MD [address] [place] [address] [place] [address] documented as of this encounter Visit Diagnoses Not on filedocumented in this encounter Care Teams Blocker And Polisher Gold Wheel Relationship Specialty Start Date End Date Jonatan Anthony MD [facility] [address] [place] PCP - General Internal Medicine 04/29/22 documented as of this encounter
--- OUTSIDE RECORDS SUMMARY | 2025-01-03 16:02 | XMS_ITS | Encounter Summary ---
Author Organization [facility], Address [address] [place] [address] Phone Care Team Providers Care Network Consultant Name Role Phone Jonatan Anthony MD Primary Care Provider [phone] Reason for Visit * Reason Comments Med Refill Encounter Details Date Type Department Care Team (Late Contact Info) Description 03/01/2022 Refill [facility] [address] [place] [address] Tyrell Oden MD [address] [place] [address] [place] [address] Social History Tobacco Use Types [...] Visit [facility] [address] [place] [address] Tyrell Oden MD [address] [place] [address] [place] [address] documented as of this encounter Visit Diagnoses Not on filedocumented in this encounter Care Teams Network Consultant Relationship Specialty Start Date End Date Jonatan Anthony MD [facility] [address] [place] PCP - General Internal Medicine 04/29/22 documented as of this encounter
--- OUTSIDE RECORDS SUMMARY | 2025-01-03 16:02 | XMS_ITS | Encounter Summary ---
Author Organization [facility] Address [address] [place] [address] Phone Care Team Providers Care Dope Heater Name Role Phone Jonatan Anthony MD Primary Care Provider [phone] Encounter Details Date Type Department Care Team ([facility] Contact Info) Description 12/27/2023 Documentation Only [facility] [address] [place] [address] Nadja Moss [address] [place] [id number] Social History Tobacco Use Types Packs/Day Years [...] Visit [facility] [place] [address] [place] [address] Tyrell Oden MD [address] [address] documented as of this encounter Visit Diagnoses Not on filedocumented in this encounter Care Teams Dope Heater Relationship Specialty Start Date End Date Jonatan Anthony MD [facility] [address] [place], [place] PCP - General Internal Medicine 04/29/22 documented as of this encounter
--- NOTE | 2025-01-03 16:15 | A.OFFVIS_ITS ---
Intake Vital Signs 3 01/03/25 16:16 Height 5 ft 6 in Weight 175 lb 4 oz BMI 28.3 BP 134/60 Blood Pressure Location Rt brachial Position Sitting Pulse 63 Pulse Source Pulse Oximeter Pulse Oximetry (%) 98 Oxygen Delivery Method Room Air Intake Visit Reasons: SWV G0439 Allergies Penicillins [PENICILLINS] Allergy (Unknown, Verified 01/03/25 16:21) UNKNOWN rosuvastatin [From Crestor] Allergy (Verified 01/03/25 16:21) Muscle Pain atorvastatin [From Lipitor] Adverse Reaction (Verified 01/03/25 16:21) Muscle Pain Medication List - Last Reconciled 01/03/25 by Jonatan Anthony MD allopurinol 100 mg PO DAILY ammonium lactate 12% 1 appl topical BID blood sugar diagnostic (FreeStyle Lite Strips) As directed blood-glucose meter (FreeStyle Lite Meter kit) As directed carvedilol 25 mg PO BID cinacalcet 30 mg PO DAILY docusate sodium 100 mg PO BID donepezil 10 mg PO BEDTIME 90 days doxazosin 2 mg PO BEDTIME empagliflozin (Jardiance) 10 mg PO DAILY ezetimibe 10 mg PO DAILY folic acid 1 mg PO DAILY gabapentin 300 mg PO DAILY hydrocortisone acetate (Anucort-HC) 25 mg OK BID PRN lancets (FreeStyle Lancets) As directed lidocaine 5% 1 appl See Protocol topical Q6H PRN multivitamin with minerals 1 tab PO DAILY mycophenolate sodium 360 mg PO BID nifedipine ER 30 mg PO DAILY spironolactone 25 mg PO DAILY torsemide 60 mg PO BID HPI SWV G0439 [address] Alcaraz, [facility] Eye care, CArdiology, Gastro Dr. Flores, [facility] [place], Neurology [facility] on the butt, The patient is a 74-year-old male presenting for an annual wellness visit. He has a history of essential hypertension, hypercholesterolemia, and type 2 diabetes mellitus. His blood pressure is currently managed with lisinopril 20 mg daily. Diabetes is well-controlled with glipizide and Jardiance, with a recent hemoglobin A1c of 5.7. The patient's LDL cholesterol was last recorded at 110 mg/dL; statin therapy is contraindicated due to adverse reactions, and he is currently on ezetimibe. 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 Recent lab work indicated a creatinine of 1.6 mg/dL, which is an improvement. The patient's secondary hypothyroidism is well-managed, and recent lab results showed thyroid function within normal limits. The patient also presents hypercalcemia due to hyperparathyroidism, managed with Sensipar. Anemia (hemoglobin at 12.6 g/dL) and mild leukopenia have been stable. The patient has obstructive sleep apnea, managed with CPAP therapy. He also has a history of hepatitis C virus infection, esophageal varices, and dementia. His medication allergies include penicillin and statins. 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 product advisor neema kidney disease and renal transplant monitoring - Eye care: Examined two to three months ago - Last colonoscopy: January 2023 - Annual podiatry evaluations - Screening labs: Regular blood work, in cluding CBC and metabolic panel, with stable results - Quit smoking in 1995 - Quit alcohol in 2004 - Adheres to CPAP therapy for obstructiv e sleep apnea - Medication management primarily coordi nated by patient's spouse - Constitutional: Denies fever - Eyes: Denies recent changes - ENT: Denies difficulty swallowing - Respiratory: Denies shortness of breat h, cough - Cardiovascular: Denies chest pain - Gastrointestinal: Reports no issues wi th bowel movements - Genitourinary: Reports nocturia once p er night - Skin: Reports rash near the elbow - Neurological: Denies dizziness, loss o f consciousness; Reports dementia management - Labs: Hemoglobin 12.6 g/dL; creatinine 1.6 mg/dL; hemoglobin A1c 5.7%; LDL 110 mg/dL; normal sodium and potassium levels [facility] Medical History Anal fissure Screening for prostate cancer Hypercholesterolemia Hepatitis C virus infection cured after antiviral drug therapy Obesity (BMI 30-39.9) BPH (benign prostatic hyperplasia) Pulmonary nodule, left Right patella fracture Cervical spondylosis Anemia HTN (hypertension) Kidney failure Surgical History History of esophagogastroduodenoscopy (EGD) History of renal transplant History of colonoscopy History of cholecystectomy Fistula of artery Family History Father No problems noted. Mother No problems noted. Brother No problems noted. Brother No problems noted. Social History (Updated 01/03/25 @ 16:40 by Jonatan Anthony MD) Household Members: Spouse Housing: House Do you presently have visiting nurse or other home services: No Alcohol intake: former Comment: quit 2004 Patient Tobacco Use Status: Former Tobacco user Tobacco use type: Cigarette Years Smoked: quit 1995 e-Cigarette/Vaping Use: Never Used Second Hand Smoke Exposure: No Advance Directives Date on File: 02/04/21 service: No Current occupational status: retired Cognitive needs: No Hearing needs: No Vision needs: Yes Questionnaire Medicare Wellness Checkup [age] What gender do you identify with?: male During the past 4 weeks, how much have you been bothered by emotional problems such as feeling anxious, depressed, irritable, sad or downhearted, and blue?: n ot at all During the past 4 weeks, has your physical & emotional health limited your social activities with family, friends, neighbors, or groups?: not at all During the past 4 weeks, how much bodily pain have you generally had?: very mild pain During the past 4 weeks, was someone available to help you if you needed & wanted help?: yes, as much as I wanted During the past 4 weeks, what was the hardest physical activity you could do for at least 2 minutes?: moderate Can you get to places out of walking distance without help? (For eg., can you travel alone on buses, taxis or drive your car?): Yes Can you go shopping for groceries or clothes without someone's help?: Yes Can you prepare your own meals?: Yes Can you do your housework without help?: Yes Because of any health problems, do you need the help of another person with your personal care needs such as eating, bathing, dressing or getting around the house?: No Can you handle your own money without help?: Yes During the past 4 weeks, how would you rate your health in general?: fair During the past 4 weeks how have things been going for you?: pretty well Are you having difficulties driving your car?: no Do you always fasten your seat belt when you are in a car?: yes, usually During past 4 weeks, have you been bothered by the following: never: Falling or dizzy when standing up, Trouble eating well?, Teeth or denture problems? and Problems using the telephone?, sometimes: Tiredness or fatigue? and always: Sexual problems? Have you fallen 2 or more times in the past year?: No Are you afraid of falling?: No Are you a smoker?: no During the past 4 weeks, how many drinks of wine, beer, or other alcoholic beverages did you have?: no alcohol at all Do you exercise for about 20 minutes 3 or more times a week?: no, I usually do not exercise this much Have you been given information to help with the following?: no: Hazards in your house that might hurt you? and no: Keeping track of your medications? How often do you have trouble taking medicines the way you have been told to take them?: I always take medicine as prescribed How confident are you that you can control & manage most of your health problems?: somewhat confident What is your race?: or origin or descent PHQ-9 Over the last 2 weeks, how often have you been bothered by any of the following problems? 1. Little interest or pleasure in doing things: not at all 2. Feeling down, depressed, or hopeless: not at all 3. Trouble falling or staying asleep, or sleeping too much: not at all 4. Feeling tired or having little energy: several days 5. Poor appetite or overeating: not at all 6. Feeling bad about yourself - or that you are a failure or have let yourself or your family down: not at all 7. Trouble concentrating on things, such as reading the newspaper or watching television: more than half the days 8. Moving or speaking so slowly that other people could have noticed. Or the opposite - being so fidgety or restless that you have been moving around a lot more than usual: not at all 9. Thoughts that you would be better off or of hurting yourself in some way: not at all Total score: 3 Depression Screening Interpretation: Negative Depression Screening Done: Yes 66168 - PHQ-9 Billing: Yes Source: Developed by Drs. Giuliano العلي, Nguyen Bañuelos, Tristan Perales and colleagues, with an educational gabby from [employer]. Review of Systems Const Denies poor appetite and Denies weakness Eyes Denies no additional complaints ENT Reports Normal hearing present, Denies dizziness, Denies nasal congestion, Denies tinnitus and Denies sore throat Card Denies chest pain, Denies syncope, Denies rapid heart rate and Denies dyspnea Resp Denies cough and Denies dyspnea GI Denies change in stool character, Reports constipation, Denies diarrhea, Denies nausea and Denies vomiting Denies dysuria and Denies urinary frequency Neuro Reports Normal hearing present, Denies confusion, Denies dizziness, Denies syncope and Denies weakness Psych Denies confusion Physical Exam Vital Signs: Last Vital Signs Pulse 63 01/03/25 16:16 BP 134/60 01/03/25 16:16 Pulse Ox 98 01/03/25 16:16 Oxygen Delivery Method Room Air 01/03/25 16:16 BMI result Body Mass Index 28.3 Const General: No confusion Orientation/consciousness: No confusion HEENT Head: Yes normocephalic Ears: external ears normal and TM's normal bilaterally Face and sinus: Yes normal facial exam Mouth: moist mucous membranes Throat: Yes tonsils normal Eyes Conjunctivae: conjunctivae normal Pupils: Equal, round and reactive pupils present and Pupil accommodation reflex normal Direct Ophthalmoscopy: normal light reflex Neck Neck: No lymphadenopathy Thyroid: Thyroid normal Chest Chest palpation & inspection: normal inspection of the chest Resp Effort & Inspection: normal respiratory effort and no audible wheezes Auscultation: clear to auscultation bilaterally, no crackles, no wheezes and lung sounds not diminished Cardio Rate: regular rate Rhythm: regular rhythm Peripheral pulses: radial pulses present and dorsalis pedis present GI Other: guiac negative prostate mild enlarged, pedal pulse and pin prick normal Palpation (GI): no masses Auscultation: normal bowel sounds and normoactive bowel sounds Back/Spine/Pelvis Back/spine/pelvis image: 2 1. 2 cm mild erythematous rash 2. 1 cm palpable mass , no tenderness, no redness Skin General skin exam: no rashes or lesions noted Rashes: no rashes Neuro General: No confusion Cranial nerves: Yes Equal, round and reactive pupils present and Yes Normal hearing present Cognition (Neuro): normal cognition Gait exam (Neuro): Normal gait present Motor exam (neuro): 5/5 motor strength present throughout Deep tendon reflexes (DTR's): Right brachioradialis reflex intensity grade: 2+, Left brachioradialis reflex intensity grade: 2+, Right patellar reflex intensity grade: 2+ and Left patellar reflex intensity grade: 2+ Extrem General: No edema Results AMB Hemoglobin A1c 2 AMB Hemoglobin A1c 5.7 % Last Edit by Sherice Lee CMA on 01/03/25 16:27 Results Reviewed Results Reviewed: Laboratory Last Values Hgb A1c (Clinic) 5.7 % (4.0-6.0) 01/03/25 16:25 Assessment & Plan Assessment & Plan (1) Medicare annual wellness visit, subsequent: Code(s): Z00.00 - Encounter for general adult medical examination without abnormal findings Plan: Patient is advised to eat healthy, keep well hydrated, keep active and have adequate sleep. 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 (3) Obstructive sleep apnea (adult) (pediatric): Comment: CPAP Code(s): G47.33 - Obstructive sleep apnea (adult) (pediatric) Plan: Continue to use the CPAP more than 4 hours a night and benefits from this (4) Type 2 diabetes mellitus with hyperglycemia: Comment: Eye and [facility] Code(s): E11.65 - Type 2 diabetes mellitus with hyperglycemia Qualifiers: Diabetes mellitus senior care insulin use: without recreation therapy teacher use Q ualified Code(s): E11.65 - Type 2 diabetes mellitus with hyperglycemia Plan: Decrease the amount of carbohydrate intake, pasta, bread, rice and potatoes are all sugar and that is aside from all the sweet stuff, remember that fruits are good but they are Sweet also. Hemoglobin A1c goal of less than 7.0 on Jardiance 10 mg once a day (5) HTN (hypertension): Code(s): I10 - Essential (primary) hypertension Qualifiers: Hypertension type: essential hypertension Qualified Code(s): I10 - Essential (primary) hypertension Plan: Continue with blood pressure medication. Decrease salt intake and exercise on carvedilol 25 mg twice a day nifedipine 30 mg once a day spironolactone 25 mg once a day (6) Hypercholesterolemia: Code(s): E78.00 - Pure hypercholesterolemia, unspecified Plan: Avoid fried foods, chicken skin, eggs, butter margarine, pastries and meat. Be it pork or beef they have a lot of cholesterol patient can not tolerate statins and so Zetia. LDL goal of less than 100 and triglyceride of less than 150 (7) Obesity (BMI 30-39.9): Code(s): E66.9 - Obesity, unspecified Plan: Diet and exercise (8) Gout: Code(s): M10.9 - Gout, unspecified Plan: Keep well hydrated and low purine diet (9) Eczema: Code(s): L30.9 - Dermatitis, unspecified Plan: noted a rssh in the lower back where pilonidal cyst can develop. will place a steroid cream . if cyst develop , advised to call and will need surgical referral (10) Epidermal cyst: Comment: R gluteal area Code(s): L72.0 - Epidermal cyst Plan: reassurance, if getting bigger then will need surgical referral Plan - Continue lisinopril 20 mg daily for hypertension - Maintain diabetes management with glipizide and Jardiance - Use topical cream for rash twice daily for one to two weeks, reassess if no improvement - Routine monitoring of renal function; stable on current immunosuppressive therapy - Continue ezetimibe for cholesterol management, given statin intolerance - Maintain CPAP use for obstructive sleep apnea - Continue Sensipar for hypercalcemia - Monitor anemia and leukopenia with regular CBC checks I discussed the management of each of the patient's chronic conditions and emphasized the importance of adherence to the current medication regimen. The patient was informed about his stable renal function and the need for continual monitoring. We reviewed the results of recent lab work, highlighting stable medication governance related to diabetes and hypertension. The patient was informed that his cholesterol management will remain on non-statin therapy due to previous adverse reactions. The importance of continuing CPAP therapy for obstructive sleep apnea was reinforced. We also discussed that the current rash should be treated topically, with follow-up instruction provided if symptoms persist. The potential risks and need for vigilance regarding his renal function were stressed. The patient was reminded to maintain updated vaccinations and personal health practices, especially given his comorbid conditions. Orders: Orders 2 AMB Hemoglobin A1c Today Z13.9 - Encounter for screening, unspecified Medications: New 2 triamcinolone acetonide 0.5% 1 appl topical BID 30 grams 0RF L30.9 - Dermatitis, unspecified Quality Reporting (2019) Depression/Bipolar (159/160/161/177) PHQ-9: Total score: 3 Coding Level of Care Code Medicare Subsequent (G0439) Diagnoses Medicare annual wellness visit, subsequent Z00.00 Renal transplant recipient Z94.0 Obstructive sleep apnea (adult) (pediatric) G47.33 Type 2 diabetes mellitus with hyperglycemia, without long-term current use of insulin E11.65 Diabetes mellitus senior care insulin use: without senior care use Essential hypertension I10 Hypertension type: essential hypertension Hypercholesterolemia E78.00 Obesity (BMI 30-39.9) E66.9 Gout M10.9 Eczema L30.9 Epidermal cyst L72.0 Additional Codes PHQ-9 - 87121 - PHQ-9 Billing: Yes ([id number])
[2025-01-03 16:16] VITALS: BP 134/60; PULSE 63; O2SAT 98; BMI 28.3
== END 2025-01-03 17:05 | disposition home or self-care (01) ==
PROVIDERS: PCP Internal Medicine; Visit Provider Internal Medicine
DX: Z00.00 Encounter for general adult medical examination without abnormal findings (principal); E11.65 Type 2 diabetes mellitus with hyperglycemia; E66.9 Obesity, unspecified; Z68.28 Body mass index [BMI] 28.0-28.9, adult; Z94.0 Kidney transplant status; G47.33 Obstructive sleep apnea (adult) (pediatric); I10 Essential (primary) hypertension; E78.00 Pure hypercholesterolemia, unspecified; M10.9 Gout, unspecified; L30.9 Dermatitis, unspecified; L72.0 Epidermal cyst

== ENCOUNTER → 2025-01-03 15:59 | Outpatient (BNVA) | payer MEDICARE, SELFPAY | PROVIDERS: PCP Internal Medicine; Visit Provider Internal Medicine | DX: Z00.00 Encounter for general adult medical examination without abnormal findings (principal); G47.33 Obstructive sleep apnea (adult) (pediatric); E11.65 Type 2 diabetes mellitus with hyperglycemia; E78.00 Pure hypercholesterolemia, unspecified; E66.9 Obesity, unspecified; I10 Essential (primary) hypertension; L30.9 Dermatitis, unspecified; L72.0 Epidermal cyst; M10.9 Gout, unspecified; Z94.0 Kidney transplant status | CPT/HCPCS: 83036; 96127 ==

== ENCOUNTER 2025-01-24 10:49 | Outpatient (AMB) | payer MEDICARE, SELFPAY ==
--- NOTE | 2025-01-24 11:04 | A.OFFPC_ITS ---
Vital Signs 01/24/25 11:05 Height 5 ft 6 in Weight 169 lb 6 oz BMI 27.3 BP 152/68 H Blood Pressure Location Rt brachial Position Sitting Pulse 58 Pulse Source Pulse Oximeter Temp 97.1 F Temp Source Temporal Artery Scan Pulse Oximetry (%) 99 Oxygen Delivery Method Room Air Intake Visit Reasons: [facility] [place] Pneumonia Cane Cutter Required: No Accompanied by: Daughter Allergies Penicillins [PENICILLINS] Allergy (Unknown, Verified 01/24/25 11:05) UNKNOWN rosuvastatin [From Crestor] Allergy (Verified 01/24/25 11:05) Muscle Pain atorvastatin [From Lipitor] Adverse Reaction (Verified 01/24/25 11:05) Muscle Pain Tobacco use date assessed: 01/24/25 Fall risk assessment: No Falls in past year Last assessed Fall Risk: 01/24/25 Dental Screening Dental Screen Date: 01/24/25 Did you have a dental visit in the last 12 months?: No Did you have a dental problem in the last 6 months where you did not have access to dental care?: No Was dental information given to patient?: Patient has dentist HPI HPI Comments History of Present Illness Details 74 y/o male patient who presents to the clinic for HDF. Pmhx significant for YANETH, HF, Dementia, CKD with Kidney Transplant 2020, HTN, HDL and DM. He was admitted at [facility] on 01/15/25 - 01/16/25 due to CAP and Influenza A. [facility] Medical History (Updated 01/24/25 @ 11:08 by Mela Cherry NP) Influenza A Community acquired bacterial pneumonia Anal fissure Screening for prostate cancer Hypercholesterolemia Hepatitis C virus infection cured after antiviral drug therapy Obesity (BMI 30-39.9) BPH (benign prostatic hyperplasia) Pulmonary nodule, left Right patella fracture Cervical spondylosis Anemia HTN (hypertension) Kidney failure Surgical History History of esophagogastroduodenoscopy (EGD) History of renal transplant History of colonoscopy History of cholecystectomy Fistula of artery Family History Father No problems noted. Mother No problems noted. Brother No problems noted. Brother No problems noted. Social History Household Members: Spouse Housing: House Do you presently have visiting nurse or other home services: No Alcohol intake: former Comment: quit 2004 Patient Tobacco Use Status: Former Tobacco user Tobacco use type: Cigarette Years Smoked: quit 1995 e-Cigarette/Vaping Use: Never Used Second Hand Smoke Exposure: No Advance Directives Date on File: 02/04/21 service: No Current occupational status: retired Cognitive needs: No Hearing needs: No Vision needs: Yes Questionnaire Thrive Questionnaire Date Thrive assessed: 09/30/24 I am a: Patient What is your living situation today?: I have a steady place to live Within the past 12 months, did the food you bought not last and you didn't have the money to get more?: Never true Within the past 12 months, did you worry whether your food would run out before you got money to buy more?: Never true Do you have trouble paying for medicines?: No Do you have trouble getting transportation to medical appointments?: No Do you have trouble paying your heating and electricity bill?: No Do you have trouble taking care of your child, family member or friend?: No Do you have trouble with day-to-day activities such as bathing, preparing meals, shopping, managing finances, etc.?: No Are you currently unemployed and looking for a job?: No Are you interested in more education?: No Please select the resources that you would like help with: None Currently or been in a relationship where the following occur: No concerns reported THRIVE Score: 0 LESA-7 AMB Questionnaire LESA-7 Date LESA - 7 assessed: 01/24/25 Feeling nervous, anxious, or on edge: 0 = Not at all Not being able to stop or control worryin = Not at all Worrying too much about different things: 0 = Not at all Trouble relaxin = Not at all Being so restless that it is hard to sit still: 0 = Not at all Becoming easily annoyed or irritable: 0 = Not at all Feeling afraid as if something awful might happen: 0 = Not at all Total LESA-7 score (0-4 normal; 5-9 mild; 10-14 moderate; 15-21 severe): 0 Source: Developed by Drs. Giuliano العلي, Nguyen Bañuelos, Tristan Perales and colleagues, with an educational gabby from [employer] LESA-7 Assessment Billing LESA-7 Assessment Tool: LESA-7 Assessment 69632 Review of Systems Const All systems reviewed & are unremarkable except as noted in HPI and below Physical exam (Primary Care) Vital Signs: Last Vital Signs Temp 97.1 F 01/24/25 11:05 Pulse 58 01/24/25 11:05 BP 152/68 H 01/24/25 11:05 Pulse Ox 99 01/24/25 11:05 Oxygen Delivery Method Room Air 01/24/25 11:05 BMI result Body Mass Index 27.3 Tobacco/Smoking Status: Tobacco use Status Tobacco use date assessed 01/24/25 01/24/25 11:09 Patient Tobacco Use Status Former Tobacco user 01/24/25 11:09 Tobacco use type Cigarette 01/24/25 11:09 e-Cigarette/Vaping Use Never Used 01/24/25 11:09 Thrive Assessment: Date of Thrive Assessment Date Thrive assessed 09/30/24 01/24/25 11:09 Currently or been in a relationship where the following occur: No concerns reported Const General: cooperative and no acute distress Nutritional Appearance: overweight Orientation/consciousness: patient oriented x3 Resp Effort & Inspection: normal respiratory effort and able to speak in complete sentences Auscultation: clear to auscultation bilaterally, no crackles, no rales, no rhonchi and no wheezes Cardio Heart sounds: S1 normal heart sound present and S2 normal heart sound present Neuro General: patient oriented x3 Coding Level of Care Code Est Pt Level 4 (57320) Diagnoses Community acquired bacterial pneumonia J15.9 Influenza A J10.1 Additional Codes LESA-7 Assessment Billing - LESA-7 Assessment Tool: ELSA-7 Assessment 23444 ([id number]) Time Spent (min) 20 Assessment & Plan Assessment & Plan (1) Community acquired bacterial pneumonia: Code(s): J15.9 - Unspecified bacterial pneumonia Category: Medical Plan: Recovering well at home. (2) Influenza A: Code(s): J10.1 - Influenza due to other identified influenza virus with other respiratory manifestations Category: Medical Plan: Resolved.
[2025-01-24 11:05] VITALS: BP 152/68; PULSE 58; TEMP 36.2; O2SAT 99; BMI 27.3
--- OUTSIDE RECORDS SUMMARY | 2025-01-24 12:21 | XMS_ITS | Encounter Summary ---
Author Organization [facility] Address [address] [place] [address] Phone Care Team Providers Care Charge Account Identification Clerk Name Role Phone Jonatan Anthony MD Primary Care Provider [phone] Encounter Details Date Type Department Care Team (Late Contact Info) Description 06/13/2023 Documentation Only [facility] [address] [place] [address] Christopher Caicedo PA Social History [...] [facility] [address] [place] [address] Tyrell Oden MD [address] [place] [address] [place] [address] documented as of this encounter Visit Diagnoses Not on filedocumented in this encounter Care Teams Charge Account Identification Clerk Relationship Specialty Start Date End Date Jonatan Anthony MD [facility] INTERNAL PA [address] [place], [place] PCP - General Internal Medicine 04/29/22 documented as of this encounter
--- OUTSIDE RECORDS SUMMARY | 2025-01-24 12:21 | XMS_ITS | Encounter Summary ---
Author Organization [facility] Address [address] [place] [address] Phone Care Team Providers Care Market Research Analyst Name Role Phone Jonatan Anthony MD Primary Care Provider [phone] Reason for Visit * Reason Comments Med Refill Encounter Details Date Type Department Care Team (Late st Contact Info) Description 08/26/2023 Refill [facility] [place], [address] [place] [address] Tyrell Oden MD [address] [place] [address] [place] [address] Social History Tobacco Use Types [...] Visit [facility] [place] [address] [place] [address] Tyrell Oden MD [address] [place] [address] [place] [address] documented as of this encounter Visit Diagnoses Not on filedocumented in this encounter Care Teams Market Research Analyst Relationship Specialty Start Date End Date Jonatan Anthony MD [facility] [address] [place] PCP - General Internal Medicine 04/29/22 documented as of this encounter
--- OUTSIDE RECORDS SUMMARY | 2025-01-24 12:21 | XMS_ITS | Encounter Summary ---
Author Organization [facility] Address [address] [place] [address] Phone Care Team Providers Care Visual Merchandiser Name Role Phone Jonatan Anthony MD Primary Care Provider [phone] Encounter Details Date Type Department Care Team (Late Contact Info) Description 10/05/2023 Documentation Only [facility] [address] [place] [address] Tyrell Oden MD [address] [place] [address] [place] [address] Social History Tobacco Use Types [...] Visit [facility] [place] [address] [place] [address] Tyrell Oden MD [address] [place] [address] [place] [address] documented as of this encounter Visit Diagnoses Not on filedocumented in this encounter Care Teams Visual Merchandiser Relationship Specialty Start Date End Date Jonatan Anthony MD [facility] INTER[facility] PA [address] [place] PCP - General Internal Medicine 04/29/22 documented as of this encounter
--- OUTSIDE RECORDS SUMMARY | 2025-01-24 12:21 | XMS_ITS | Encounter Summary ---
Author Organization [facility], Address [address] [place] [address] Phone Care Team Providers Care Human Service Technician Name Role Phone Jonatan Anthony MD Primary Care Provider [phone] Reason for Visit * Reason Comments Med Refill Encounter Details Date Type Department Care Team (Late Contact Info) Description 04/23/2023 Refill [facility] [address] [place] [address] Tyrell Oden MD [address] [place] [address] [place] [address] Social History Tobacco Use Types [...] Office Visit [facility] [address] [place] [address] Tyrell Oden MD [address] [place] [address] [place] [address] documented as of this encounter Visit Diagnoses Not on filedocumented in this encounter Care Teams Human Service Technician Relationship Specialty Start Date End Date Jonatan Anthony MD [facility] [address] [place] PCP - General Internal Medicine 04/29/22 documented as of this encounter
--- OUTSIDE RECORDS SUMMARY | 2025-01-24 12:21 | XMS_ITS | Encounter Summary ---
Author Organization [facility], Address [address] [place] [address] Phone Care Team Providers Care Dietetics Teacher Name Role Phone Jonatan Anthony MD Primary Care Provider [phone] Reason for Visit * Reason Comments Med Refill Encounter Details Date Type Department Care Team (Late Contact Info) Description 08/01/2023 Refill [facility] [address] [place] [address] [...] Upcoming Encounters Date Type Department Care Team ([facility] Contact Info) Description 02/14/2025 11:30 AM EDT Office Visit [facility] [address] [place] [address] Tyrell Oden MD [address] [place] [address] [place] [address] documented as of this encounter Visit Diagnoses Not on filedocumented in this encounter Care Teams Dietetics Teacher Relationship Specialty Start Date End Date Jonatan Anthony MD [facility] INTERNAL [place] [address] [place] PCP - General Internal Medicine 04/29/22 documented as of this encounter
--- OUTSIDE RECORDS SUMMARY | 2025-01-24 12:21 | XMS_ITS | Encounter Summary ---
Author Organization [facility], Address [address] [place] [address] Phone Care Team Providers Care Qualitative Executive Researcher Name Role Phone Jonatan Anthony MD Primary Care Provider [phone] Reason for Visit * Reason Comments Med Refill Encounter Details Date Type Department Care Team (Late Contact Info) Description 03/01/2022 Refill [facility] [address] [place] [address] Tyrell Oden MD [address] [place] [address] [place] [address] Social History Tobacco Use Types [...] Office Visit [facility] [address] [place] [address] Tyrell Oden MD [address] [place] [address] [place] [address] documented as of this encounter Visit Diagnoses Not on filedocumented in this encounter Care Teams Qualitative Executive Researcher Relationship Specialty Start Date End Date Jonatan Anthony MD [facility] [address] [place] PCP - General Internal Medicine 04/29/22 documented as of this encounter
--- OUTSIDE RECORDS SUMMARY | 2025-01-24 12:21 | XMS_ITS | Encounter Summary ---
Author Organization [facility] Address [address] [place] [address] Phone Care Team Providers Care Meteorology Instructor Name Role Phone Jonatan Anthony MD Primary Care Provider [phone] Encounter Details Date Type Department Care Team ([facility] Contact Info) Description 09/21/2023 Documentation Only [facility] [address] [place] [address] Tyrell Oden MD [address] [place] [address] [place] [address] Social History Tobacco Use Types [...] Visit [facility] [place] [address] [place] [address] Tyrell Oden MD [address] [place] [address] [place] [address] documented as of this encounter Visit Diagnoses Not on filedocumented in this encounter Care Teams Meteorology Instructor Relationship Specialty Start Date End Date Jonatan Anthony MD [facility] INTERNAL [place] [address] [place] PCP - General Internal Medicine 04/29/22 documented as of this encounter
--- OUTSIDE RECORDS SUMMARY | 2025-01-24 12:21 | XMS_ITS ---
Author Organization [facility] Brad latoya [place] Address [address] [facility] [address] Care Team Providers Care Route Specialist Name Role Phone Jonatan Anthony Primary Care Provider Nichole DwyerTaylere Unavailable [phone] Allergies Allergen (clinical drug ingredient) Drug/Non Drug [...] Ordered Date Performed Result Body Sit e 80441-DVVNUHA NAIL, 6 OR MORE 09/19/2024 N/A 85740-LVJH SKIN LESIONS, 2 TO 4 09/19/2024 N/A Encounters Encounter Location Date Provider Diagnosis [facility] [address] [address] 09/19/2024 Leticia Dwyer Type 2 diabetes mellitus [...] Treatment Pending Test Test Name Order Date 14680-RHDIVUQ NAIL, 6 OR MORE 09/19/2024 73122-TFSD SKIN LESIONS, 2 TO 4 09/19/20 24 Next Appt Details Follow Up: prn, Reason: Provider Name:Leticia Dwyer , 03/31/2025 09:30:00 AM, [address] [place], [address], Procedure Notes * Category Sub-Category Detail Notes [...] as necessary. Patient chooses, no pharmaceutical tx (97128) Keratoma Treatment Parring or Cutting o f Benign Hyperkeratotic Lesion(s) 05618 (2-4 Lesions) - The Benign hyperkeratotic lesions, as described above were pared, and/or cut utilizing a sterile #15 blade, tissue nippers, and/or dremel Progress Notes * Maninder PACKDOB: [birth year] (74 yo M)Acc No.[id number]:09/19/2024 Progress Note Patient:?Maninder Pack Provider:?Leticia TERI Dwyer :1950???Age:74 Y???Sex:Male Sean e:09/19/2024 Address:[address] [place], [place] [id number] Pcp:Jonatan Anthony Subjective: * Chief Complaints: * [...] yes, walking. ?Marital status: . ?Occupation: Retired- [employer]. * Medications:?TakingMultivita min Stool Softener , Notes: [...] kg. * Examination: ???Ophthalmology Referral: ?DIABETES EYE EXAM?Procedure Performed:?Yes ?Findings of Diabetic Eye Exam:?no retinopathy?General Examination: ?GENERAL APPEARANCE:?Reveals a pleasant, alert, well nourished, well- developed, well hydrated individual, who demonstrates proper attention to hygiene/body habitus, and is in no acute distress, Pt serves as own historian for office visit today.?ORIENTED:?person, place, and time.?FOOT EXAM:?Lower Extremity Neurological Exam performed:?Yes ?Footwear Evaluation?Footwear Evaluation performed:?Yes?Vascular: ?DP PULSES(B):?2/4, B/L.?PT PULSES(B):?2/4, B/L.?Neurological: ?SENSORY:?Neurological exam [...] - M77.41? Plan: * Treatment: 2.?Tinea unguium?Procedure: 26386-CSSBUVH NAIL, 6 OR MORE * Procedures:?Debride Nail 6-10:?Nail debridement?Nail debridement performed extensively to reduce/remove overall nail length and girth, subungual debris, and necrotic tissue, by manual and electrical means with use of a nail nipper and/or dremel, to more viable healthy nail plate or bed tissue 6-10. Silver nitrate used for any petechial bleeding as necessary. Patient chooses, no pharmaceutical tx (61734).?Keratoma Treatment:?Parring or Cutting of Benign Hyperkeratotic Lesion(s)?93014 (2-4 Lesions) - The Benign hyperkeratotic lesions, as described above were pared, and/or cut utilizing a sterile #15 blade, tissue nippers, and/or dremel.? * Procedure Codes:?79415 DEBRI DE NAIL, 6 OR MORE, Modifiers: XS 77592 TRIM SKIN LESIONS, 2 TO 4, Modifiers: [...] Provider:?Leticia Dwyer DPM Date:?2023 Generated for Sven montes/Swati/Navya on:?01/24/2025 12:20 PM EST History and Physical Notes * [...]
--- OUTSIDE RECORDS SUMMARY | 2025-01-24 12:21 | XMS_ITS | Encounter Summary ---
Author Organization [facility], Address [address] [place] [address] Phone Care Team Providers Care Community Artist Name Role Phone Jonatan Anthony MD Primary Care Provider [phone] Reason for Visit * Reason Comments Med Refill Encounter Details Date Type Department Care Team (Late Contact Info) Description 11/23/2023 Refill [facility] [address] [place] [address] Christopher Caicedo PA Long-term drug [...] Office Visit [facility] [address] [place] [address] Tyrell Oden MD [address] [place] [address] [place] [address] documented as of this encounter Visit Diagnoses Diagnosis Long-term drug therapy documented in this encounter Care Teams Community Artist Relationship Specialty Start Date End Date Jonatan Anthony MD [address] [facility] MD PCP - General Internal Medicine 04/29/22 documented as of this encounter
--- OUTSIDE RECORDS SUMMARY | 2025-01-24 12:21 | XMS_ITS | Patient Health Record ---
Author Organization [facility] Brad latoya [place] Address [address] [facility] [place] [address] Care Team Providers Care Flexible Nanny Name Role Phone Jonatan Anthony Primary Care Provider Leticia [place] Unavailable [phone] Allergies Allergen (clinical drug ingredient) Drug/Non Drug [...] Problem Acquired hammer toe of right foot (3834787687707275) Other hammer toe(s) (acquired), right foot (M20.41) Active confirmed Problem Acquired hammer toe of left foot (3768403992903151) Other hammer toe(s) (acquired), left foot (M20.42) Active confirmed Problem Chronic kidney disease due to type 2 diabetes mellitus (525143401242) 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.22) Active confirmed Problem Polyneuropathy due to type 2 diabetes mellitus (985510689) Type 2 diabetes mellitus with diabetic polyneuropathy (E11.42) Active confirmed Problem Juvenile osteochondrosis of the foot (211737899) 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) Active confirmed Problem Acquired deformity of right foot (31013396432359776 ) PlantarFlexion of metatarsal of right foot (M21.6X1) Active confirmed Problem Acquired deformity of left foot (16096327442525485 ) PlantarFlexion of metatarsal of left foot (M21.6X2) Active confirmed Vital Signs Blood pressure diastolic 60 mm Hg 12/26/2024 Height 5ft6in in 12/26/2024 Blood pressure systolic 160 mm Hg 12/26/2024 Weight 175 lbs 12/26/2024 BMI 28.24 kg/m2 12/26/2024 Procedures Procedure Date Ordered Date Performed Result Body Sit e 86307-NZHORFR NAIL, 6 OR MORE 03/14/2024 N/A 05257-Wrlcirpo Plate 03/14/2024 N/A 25808-JYVY SKIN LESIONS, 2 TO 4 03/14/2024 N/A 46604-LGTVEYU NAIL, 6 OR MORE 06/13/2024 N/A 47449-ZIPJ SKIN LESIONS, 2 TO 4 06/13/2024 N/A 78410-UAJREKZ NAIL, 6 OR MORE 09/19/2024 N/A 28955-YNZU SKIN LESIONS, 2 TO 4 09/19/2024 N/A 17615-VRUYSMJ NAIL, 6 OR MORE 12/26/2024 N/A 01156-BBQZ SKIN LESIONS, 2 TO 4 12/26/2024 N/A Encounters Encounter Location Date Provider Diagnosis [address] [address] 03/14/2024 Leticia Black Type 2 diabetes mellitus with diabetic polyneuropathy E11.42 ; Type 2 diabetes mellitus with diabetic chronic kidney disease E11.22 ; Tinea unguium B35.1 ; Xerosis cutis L85.3 and Ingrown nail L60.[address] [address] 06/13/2024 Leticia Black Type 2 diabetes mellitus with diabetic polyneuropathy E11.42 ; Type 2 diabetes mellitus with diabetic chronic kidney disease E11.22 ; Tinea unguium B35.1 ; Other hammer toe(s) (acquired), left foot M20.42 and Other hammer toe(s) (acquired), right foot M20.[address] [address] 09/19/2024 Leticia Black Type 2 diabetes mellitus [...] foot M77.51 and Metatarsalgia, right foot M77.[address] [address] 12/26/2024 Leticia Black Type 2 diabetes mellitus [...] Short Achilles tendon (acquired), left ankle M67.02 [facility] [address] [address] 08/19/2024 Leticia Dwyer Xerosis cutis L85.3 [facility] [address] [address] 01/02/2025 Leticia Dwyer Assessments Encounter Date Diagnosis [...] Treatment Pending Test Test Name Order Date 53122-UELQCZW NAIL, 6 OR MORE 09/01/2022 74129-HCTDSVU NAIL, 6 OR MORE 12/08/2022 05966-KUMLBYW NAIL, 6 OR MORE 03/09/2023 70691-GDOVBCN NAIL, 6 OR MORE 12/11/2023 87235-XANACBR NAIL, 6 OR MORE 03/14/2024 65226-GIAFZQL NAIL, 6 OR MORE 06/13/2024 08519-BIRAJGK NAIL, 6 OR MORE 09/19/2024 42974-IXEJUZN NAIL, 6 OR MORE 12/26/2024 17715-Kuhynlka Plate 03/09/2023 58939-Njsugmyn Plate 03/14/2024 37988-XCTT SKIN LESIONS, 2 TO 4 06/13/20 24 07779-WJZR SKIN LESIONS, 2 TO 4 12/26/19 25 29622-VSYH SKIN LESIONS, 2 TO 4 09/19/20 24 58041-VSVA SKIN LESIONS, 2 TO 4 03/14/20 24 70817-OIIY SKIN LESIONS, 2 TO 4 12/11/19 24 38776-HHVQ SKIN LESIONS, 2 TO 4 03/09/20 23 63316-JTLV SKIN LESIONS, 2 TO 4 12/08/19 23 Next Appt Details Provider Name:Leticia Dwyer , 03/31/2025 09:30:00 AM, [address] [facility], [place], [address], Insurance Providers Payer Name Payer Address Payer Phone Subscriber Number Group Number Insured Name Patient Relationship to Insured Coverage Start Date Coverage End Date Medicare National [employer] [address] [place] [address] [id number] Maninder Pack Self - patient is the insured [employer] Blue Shield [address] [place] [address] [phone] [id number] 1 Maninder Pack Self - patient is the insured Medical (General) History Medical History History ICD Code Alzheimers disease Gall bladder problems Glaucoma Gout Hepatitis C High blood pressure Kidney disease Stroke Sleep apnea Neuropathy Surgical History Surgery Date(Month/Year) kidney transplant 09/30/2021 gall bladder
--- OUTSIDE RECORDS SUMMARY | 2025-01-24 12:21 | XMS_ITS | Encounter Summary ---
Author Organization [facility] Address [address] [place] [address] Phone Care Team Providers Care Air Quality Consultant Name Role Phone Jonatan Anthony MD Primary Care Provider [phone] Encounter Details Date Type Department Care Team ([facility] Contact Info) Description 07/31/2023 Documentation Only [facility] [address] [place] [address] Angie Martinez [address] [place] [phone] Social History Tobacco Use Types Packs/Day Years [...] Visit [facility] [place] [address] [place] [address] Tyrell Oden MD [address] [place] [phone] documented as of this encounter Visit Diagnoses Not on filedocumented in this encounter Care Teams Air Quality Consultant Relationship Specialty Start Date End Date Jonatan Anthony MD [facility] [place] [address] [place] PCP - General Internal Medicine 04/29/22 documented as of this encounter
--- OUTSIDE RECORDS SUMMARY | 2025-01-24 12:21 | XMS_ITS ---
Author Organization [facility] Tara latoya Porter Address [address] [place] [address] Care Team Providers Care Basket Sorter Name Role Phone Jonatan Anthony Primary Care Provider Leticia Matthews [phone] REASON FOR VISIT Last A1C Encounters Encounter Location Date Provider Diagnosis [facility] [address] [place] [address] 01/02/2025 Leticia Dwyer Plan Of Treatment Next Appt Details Provider Name:Leticia Dwyer , 03/31/2025 09:30:00 AM, [address] [place], [address], Progress Notes * RAMONE, ManinderDOB: [birth year] (74 yo M)Acc No.[id number]:01/02/2025 Patient:?Maninder QIU :1950???Age:74 Y???Sex:Male Address:[address] [place] [address], [address] * true * Date:? Generated for Printi ng/Swati/eTransmitting on:?01/24/2025 12:21 PM EST
--- OUTSIDE RECORDS SUMMARY | 2025-01-24 12:21 | XMS_ITS | Encounter Summary ---
Author Organization [facility] Address [address] [place] [address] Phone Care Team Providers Care Culturist Name Role Phone Jonatan Anthony MD Primary Care Provider [phone] Encounter Details Date Type Department Care Team (Late Contact Info) Description 06/13/2023 Documentation Only [facility] [address] [place] [address] Christopher Caicedo PA Social History [...] Visit [facility] [address] [place] [address] Tyrell Oden MD [address] [place] [address] [place] [address] documented as of this encounter Visit Diagnoses Not on filedocumented in this encounter Care Teams Culturist Relationship Specialty Start Date End Date Jonatan Anthony MD [facility] [place] [address] [place], [place] PCP - General Internal Medicine 04/29/22 documented as of this encounter
--- OUTSIDE RECORDS SUMMARY | 2025-01-24 12:21 | XMS_ITS | Encounter Summary ---
Author Organization [facility], Address [address] [place] [address] Phone Care Team Providers Care Electric Organ Inspector And Repairer Name Role Phone Jonatan Anthony MD Primary Care Provider [phone] Reason for Visit * Reason Comments Med Refill Encounter Details Date Type Department Care Team (Late Contact Info) Description 06/21/2023 Refill [facility] [address] [place] [address] Tyrell Oden MD [address] [place] [address] [place] [address] Social History Tobacco Use Types [...] Office Visit [facility] [address] [place] [address] Tyrell Oden MD [address] [place] [address] [place] [address] documented as of this encounter Visit Diagnoses Not on filedocumented in this encounter Care Teams Electric Organ Inspector And Repairer Relationship Specialty Start Date End Date Jonatan Anthony MD [facility] [address] [place] PCP - General Internal Medicine 04/29/22 documented as of this encounter
--- OUTSIDE RECORDS SUMMARY | 2025-01-24 12:21 | XMS_ITS | Encounter Summary ---
Author Organization [facility] Address [address] [place] [address] Phone Care Team Providers Care Team Foreman Name Role Phone Jonatan Anthony MD Primary Care Provider [phone] Encounter Details Date Type Department Care Team (Late Contact Info) Description 03/31/2022 Documentation Only [facility] [address] [place] [place] [address] Christopher Caicedo PA Social History [...] Visit [facility] [address] [place] [address] Tyrell Oden MD [address] [place] [address] [place] [address] documented as of this encounter Visit Diagnoses Not on filedocumented in this encounter Care Teams Team Foreman Relationship Specialty Start Date End Date Jonatan Anthony MD [facility] [place] [address] [place], [place] PCP - General Internal Medicine 04/29/22 documented as of this encounter
--- OUTSIDE RECORDS SUMMARY | 2025-01-24 12:21 | XMS_ITS | Encounter Summary ---
Author Organization [facility], Address [address] [place] [address] Phone Care Team Providers Care Director Of Early Childhood Name Role Phone Jonatan Anthony MD Primary Care Provider [phone] Reason for Visit * Reason Comments Med Refill Encounter Details Date Type Department Care Team (Late Contact Info) Description 06/27/2023 Refill [facility] [address] [place] [address] Christopher Caicedo PA Social History [...] Care Team ([facility] Contact Info) Description 02/14/2025 11:30 AM EDT Office Visit [facility] [address] [place] [address] Tyrell Oden MD [address] [place] [address] [place] [address] documented as of this encounter Visit Diagnoses Not on filedocumented in this encounter Care Teams Director Of Early Childhood Relationship Specialty Start Date End Date Jonatan Anthony MD [facility] [place] [address] [place] PCP - General Internal Medicine 04/29/22 documented as of this encounter
--- OUTSIDE RECORDS SUMMARY | 2025-01-24 12:22 | XMS_ITS | Encounter Summary ---
Author Organization [facility], Address [address] [place] [address] Phone Care Team Providers Care Silk Screen Frame Assembler Name Role Phone Jonatan Anthony MD Primary Care Provider [phone] Reason for Visit * Reason Comments Med Refill Encounter Details Date Type Department Care Team (Late Contact Info) Description 12/26/2022 Refill [facility] [address] [place] [address] Tyrell Oden MD [address] [place] [address] [place] [address] Social History Tobacco Use Types [...] Office Visit [facility] [address] [place] [address] Tyrell Oden MD [address] [place] [address] [place] [address] documented as of this encounter Visit Diagnoses Not on filedocumented in this encounter Care Teams Silk Screen Frame Assembler Relationship Specialty Start Date End Date Jonatan Anthony MD [facility] [address] [place] PCP - General Internal Medicine 04/29/22 documented as of this encounter
--- OUTSIDE RECORDS SUMMARY | 2025-01-24 12:22 | XMS_ITS | Clinical Summary ---
Author Organization [facility] Address [address] [place] [address] Care Team Providers Care Architecture Manager Name Role Phone Pcp, No Primary Care [...] age to complete this topic Care Teams Architecture Manager Relationship Specialty Start Date End Date Pcp, No [address] [place] [address] PCP - General 03/28/22
--- OUTSIDE RECORDS SUMMARY | 2025-01-24 12:22 | XMS_ITS | Encounter Summary ---
Author Organization [facility], Address [address] [place] [address] Phone Care Team Providers Care Ultrasonographer Name Role Phone Jonatan Anthony MD Primary Care Provider [phone] Reason for Visit * Reason Comments Med Refill Encounter Details Date Type Department Care Team (Late Contact Info) Description 02/24/2023 Refill [facility] [address] [place] [address] Christopher Caicedo PA Social History [...] Upcoming Encounters Date Type Department Care Team ([facility] Contact Info) Description 02/14/2025 11:30 AM EDT Office Visit [facility] [address] [place] [address] Tyrell Oden MD [address] [place] [address] [place] [address] documented as of this encounter Visit Diagnoses Not on filedocumented in this encounter Care Teams Ultrasonographer Relationship Specialty Start Date End Date Jonatan Anthony MD [facility] [place] [address] [place] PCP - General Internal Medicine 04/29/22 documented as of this encounter
--- OUTSIDE RECORDS SUMMARY | 2025-01-24 12:22 | XMS_ITS | Encounter Summary ---
Author Organization [facility] Address [address] [place] [address] Phone Care Team Providers Care Bead Inspector Name Role Phone Jonatan Anthony MD Primary Care Provider [phone] Reason for Visit * Reason Comments Med Refill Encounter Details Date Type Department Care Team (Late Contact Info) Description 03/27/2024 Refill [facility] [place], [address] [place] [address] Giuliano Shirley MD [facility] [place] [address] Social History Tobacco Use Types [...] Visit [facility] [place] [address] [place] [address] Tyrell Oden MD [address] [place] [address] documented as of this encounter Visit Diagnoses Not on filedocumented in this encounter Care Teams Bead Inspector Relationship Specialty Start Date End Date Jonatan Anthony MD [facility] [address] [place] PCP - General Internal Medicine 04/29/22 documented as of this encounter
--- OUTSIDE RECORDS SUMMARY | 2025-01-24 12:22 | XMS_ITS | Encounter Summary ---
Author Organization [facility] Address [address] [place] [address] Phone Care Team Providers Care After School Coordinator Name Role Phone Jonatan Anthony MD Primary Care Provider [phone] Encounter Details Date Type Department Care Team ([facility] Contact Info) Description 01/06/2023 Documentation Only [facility] [place], [address] [address] Essence King [place] [address] [place] [phone] Social History Tobacco Use Types Packs/Day Years [...] Visit [facility] [place] [address] [address] Tyrell Oden MD [address] [place] [address] documented as of this encounter Visit Diagnoses Not on filedocumented in this encounter Care Teams After School Coordinator Relationship Specialty Start Date End Date Jonatan Anthony MD [facility] [place] [address] [place], [place] PCP - General Internal Medicine 04/29/22 documented as of this encounter
--- OUTSIDE RECORDS SUMMARY | 2025-01-24 12:22 | XMS_ITS | Encounter Summary ---
Author Organization [facility] Address [address] [place] [address] Phone Care Team Providers Care Patent Chemist Name Role Phone Jonatan Anthony MD Primary Care Provider [phone] Encounter Details Date Type Department Care Team ([facility] Contact Info) Description 12/27/2023 Documentation Only [facility] [address] [place] [address] Nadja Moss [address] [place] [phone] Social History Tobacco Use Types Packs/Day Years [...] Visit [facility] [place] [address] [place] [address] Tyrell Oden MD [address] [place] [address] documented as of this encounter Visit Diagnoses Not on filedocumented in this encounter Care Teams Patent Chemist Relationship Specialty Start Date End Date Jonatan Anthony MD [facility] [place] [address] [place], [place] PCP - General Internal Medicine 04/29/22 documented as of this encounter
--- OUTSIDE RECORDS SUMMARY | 2025-01-24 12:22 | XMS_ITS | Encounter Summary ---
Author Organization [facility] Address [address] [place] [address] Phone Care Team Providers Care Mobile Application Tester Name Role Phone Jonatan Anthony MD Primary Care Provider [phone] Encounter Details Date Type Department Care Team (Late Contact Info) Description 02/09/2023 Documentation Only [facility] [address] [place] [address] Christopher Caicedo PA Social History [...] Visit [facility] [address] [place] [address] Tyrell Oden MD [address] [place] [address] [place] [address] documented as of this encounter Visit Diagnoses Not on filedocumented in this encounter Care Teams Mobile Application Tester Relationship Specialty Start Date End Date Jonatan Anthony MD [facility] [place] [address] [place], [place] PCP - General Internal Medicine 04/29/22 documented as of this encounter
--- OUTSIDE RECORDS SUMMARY | 2025-01-24 12:22 | XMS_ITS | Encounter Summary ---
Author Organization [facility] Address [address] [place] [address] Phone Care Team Providers Care Cms Expert Name Role Phone Jonatan Anthony MD Primary Care Provider [phone] Encounter Details Date Type Department Care Team ([facility] Contact Info) Description 09/17/2024 Documentation Only [facility] [place], [address] [address] Maddy Nunez [place] [address] [place] [address] Social History Tobacco Use Types [...] Visit [facility] [place] [address] [address] Tyrell Oden MD [address] [place] [address] documented as of this encounter Visit Diagnoses Not on filedocumented in this encounter Care Teams Cms Expert Relationship Specialty Start Date End Date Jonatan Anthony MD [facility] [place] [address] [place] PCP - General Internal Medicine 04/29/22 documented as of this encounter
--- OUTSIDE RECORDS SUMMARY | 2025-01-24 12:22 | XMS_ITS | Clinical Summary ---
Author Organization [facility] [place], Address [address] [place] [address] Phone Care Team Providers Care Rug Cutter Helper Name Role Phone Jonatan Anthony MD Primary Care Provider Allergies Active Allergy Reactions Criticality Noted Date [...] Visit [facility] [address] [place] [address] Tyrell Oden MD Kidney replaced by transplant (Primary Dx); Personal history of immunosuppression therapy; Stage 3b chronic kidney disease (HCC); Type 2 diabetes mellitus with diabetic chronic kidney disease (HCC); Essential hypertension; Anemia in chronic kidney disease 12/12/2024 Orders Only [facility] [address] [place] [address] Christopher Caicedo PA 11/29/2024 Refill [facility] [address] [place] [address] Christopher Caicedo PA 11/01/2024 Telephone [facility] [address] [place] [address] Essence King [place] 10/28/2024 Documentation Only [facility] [address] [place] [address] Maddy Nunez MA from Last 3 Months Immunizations Name Administration [...] Visit [facility] [place] [address] [place] [address] Tyrell Oden MD [address] [place] [address] [place] [address] [place] [address] Health Maintenance Due Date Last Done Comments [...] chronic kidney disease Proteinuria, not otherwise specified HEMOGLOBIN A1C Routine 10/09/2024 10:12 AM EST Kidney replaced by transplant Personal history of immunosuppression therapy Stage 3b chronic kidney disease (HCC) Type 2 diabetes mellitus with diabetic chronic kidney disease (HCC) Other iron deficiency anemia Idiopathic gout, not otherwise specified Vitamin D deficiency, not otherwise specified Mixed hyperlipidemia BK virus nephropathy Hypomagnesemia Hypervolemia Poor glycemic control from Last 3 Months or Most Recently Relevant to Health Maintenance Results * (ABNORMAL) Urinalysis, Complete w/reflex to Culture (12/12/2024 3:14 PM EST) Specific [place], Urine 1.026 1.005 - 1.030 [facility] pH Urine 5.5 5.0 - 7.5 [facility] Color, Urine Yellow Yellow [facility] Appearance Urine Clear Clear [facility] WBC Esterase Urine Negative Negative [facility] Protein, Ur 1+(A) Negative/Tra ce [facility] Glucose, Ur 3+(A) Negative [facility] Ketones, Urine Negative Negative [facility] Blood Urine Negative Negative [facility] [phone] Bilirubin Urine Negative Negative [facility] [phone] Urobilinogen Urine 0.2 0.2 - 1.0 mg/dL [facility] [phone] Nitrite, Urine Negative Negative [facility] [phone] Microscopic Examination See below: [facility] [phone] Comment:Microscopic was shin cated and was performed. URINALYSIS REFLEX Comment [facility] Comment:This specimen will n ot reflex to a Urine Culture. 12/12/2024 3:14 PM EST 12/12/2024 Christopher THOMAS [facility] URINE ORDERABLES Final Re sult [facility] [address] [place] [address] * Microscopic Examination (12/12/2024 3:14 PM EST) WBC, Urine None seen 0 - 5 /hpf [facility] RBC, Urine None seen 0 - 2 /hpf [facility] Squamous Epithelial, Urine None seen 0 - 10 /hpf [facility] Casts None seen None seen /lpf [facility] Bacteria, Urine None seen None seen/Few [facility] 12/12/2024 3:14 PM EST 12/12/2024 Christopher THOMAS [facility] MICROBIOLOGY - GENERAL OR DERABLES Final Result [facility] [address] [place] [address] * (ABNORMAL) Protein, Total, Random Urine w/Creatinine (Protein/Creat Ratio) (12/12/2024 3:14 PM EST) Creatinine, Ur 115.7 Not Estab. mg/dL [facility] Protein, Ur 37.9 Not Estab. mg/dL [facility] Urine Protein/Creati nine Ratio 328(H) 0 - 200 mg/g creat [facility] 12/12/2024 3:14 PM EST 12/12/2024 Christopher THOMAS LAB URINE ORDERABLES Final Re sult Performing Organization Address City/[facility]/ZIP Co de Phone Number [facility] [address] [place] [address] * Mycophenolic Acid (12/12/2024 8:23 AM EST) Mycophenolic Acid 1.2 1.0 - 3.5 ug/mL [facility] Mycophenolic Acid Glucuronide 63 15 - 125 ug/mL [facility] Blood (Blood, Venous) 12/12/2024 8:23 AM EST 12/12/2024 Narrative [facility] - 12/17/2024 12:06 PM EST Test(s) 629941-Mfsepwqxddni Acid; 299113- Mycophenolic Acid Glucuronide was developed and its performance characteristics determined by [facility]. It has not been cleared or approved by the Food and Drug Administration. Christopher THOMAS LAB BLOOD ORDERABLES Final Re sult [facility] [address] [place] [address] * (ABNORMAL) CBC and Differential (12/12/2024 8:23 AM EST) WBC 3.2(L) 3.4 - 10.8 x10E3/uL [facility] RBC 4.27 4.14 - 5.80 x10E6/uL [facility] Hemoglobin 12.7(L) 13.0 - 17.7 g/dL [facility] Hematocrit 39.6 37.5 - 51.0 % [facility] MCV 93 79 - 97 fL [facility] MCH 29.7 26.6 - 33.0 pg [facility] MCHC 32.1 31.5 - 35.7 g/dL [facility] RDW 13.0 11.6 - 15.4 % [facility] Platelets 184 150 - 450 x10E3/uL [facility] Neutrophils Relative 44 Not Estab. % [facility] Lymphocytes Relative 38 Not Estab. % [facility] Monocytes 10 Not Estab. % [facility] Eosinophils Relative 4 Not Estab. % [facility] Basophils Relative 2 Not Estab. % [facility] Neutrophils Absolute 1.4 1.4 - 7.0 x10E3/uL [facility] Lymphocytes Absolute 1.2 0.7 - 3.1 x10E3/uL [facility] Monocytes Absolute 0.3 0.1 - 0.9 x10E3/uL [facility] Eosinophils Absolute 0.1 0.0 - 0.4 x10E3/uL [facility] Basophils Absolute 0.1 0.0 - 0.2 x10E3/uL [facility] Immature Granulocytes 2 Not Estab. % [facility] Immature Grans (Absolute) 0.1 0.0 - 0.1 x10E3/uL [facility] Blood (Blood, Venous) 12/12/2024 8:23 AM EST 12/12/2024 Christopher THOMAS LAB BLOOD ORDERABLES Final Re sult Performing Organization Address City/[facility]/ZIP Co de Phone Number [facility] [address] [place] [address] * ALT (12/12/2024 8:23 AM EST) ALT (SGPT) 21 0 - 44 IU/L [facility] Blood (Blood, Venous) 12/12/2024 8:23 AM EST 12/12/2024 Christopher THOMAS LAB BLOOD ORDERABLES Final Re sult [facility] [address] [place] [address] * AST (12/12/2024 8:23 AM EST) AST (SGOT) 22 0 - 40 IU/L [facility] Blood (Blood, Venous) 12/12/2024 8:23 AM EST 12/12/2024 Christopher THOMAS LAB BLOOD ORDERABLES Final Re sult [facility] [address] [place] [address] * CK (12/12/2024 8:23 AM EST) Pathologist [facility] Creatine Kinase (CK/CPK) 41 41 - 331 U/L [facility] Blood (Blood, Venous) 12/12/2024 8:23 AM EST 12/12/2024 Christopher THOMAS LAB BLOOD ORDERABLES Final Re sult Performing Organization Address City/[facility]/ZIP Co de Phone Number [facility] [address] [place] [address] * (ABNORMAL) Renal Function Panel (12/12/2024 8:23 AM EST) Pathologist [facility] Glucose 150(H) 70 - 99 mg/dL [facility] BUN 35(H) 8 - 27 mg/dL [facility] Creatinine 1.75(H) 0.76 - 1.27 mg/dL [facility] eGFR CKD-EPI CR 2020 40(L) >59 mL/min/1.7 3 [facility] BUN/Creatinine Ratio 20 10 - 24 [facility] Sodium 142 134 - 144 mmol/L [facility] Potassium 4.3 3.5 - 5.2 mmol/L [facility] Chloride 110(H) 96 - 106 mmol/L [facility] Bicarbonate (CO2) 20 20 - 29 mmol/L [facility] Calcium 10.6(H) 8.6 - 10.2 mg/dL [facility] Comment:Verified by repeat analysis Albumin 3.9 3.8 - 4.8 g/dL [facility] Phosphorus 2.9 2.8 - 4.1 mg/dL [facility] Blood (Blood, Venous) 12/12/2024 8:23 AM EST 12/12/2024 Christopher THOMAS LAB BLOOD ORDERABLES Final Re sult [facility] [address] [place] [address] * (ABNORMAL) Hemoglobin A1c (10/09/2024 10:12 AM EST) Hemoglobin A1C 5.8(H) 4.8 - 5.6 % [facility] Comment: ? Prediabetes: 5.7 - 6.4 ? Diabetes: >6.4 ? Glycemic control for adults with diabetes: <7.0 Blood (Blood, Venous) 10/09/2024 10:12 AM EST 10/09/2024 Christopher THOMAS LAB BLOOD ORDERABLES Final Re sult [facility] [address] [place] [address] from Last 3 Months or Most Recently Relevant to Health Maintenance Insurance [facility] MEDICARE MEDICARE [facility] Care Teams Rug Cutter Helper Relationship Specialty Start Date End Date Jonatan Anthony MD [facility] INTERNAL [address] [place] PCP - General Internal Medicine 04/29/22
--- OUTSIDE RECORDS SUMMARY | 2025-01-24 12:22 | XMS_ITS | Encounter Summary ---
Author Organization [facility] Address [address] [place] [address] Phone Care Team Providers Care Public Bath Attendant Name Role Phone Jonatan Anthony MD Primary Care Provider [phone] Encounter Details Date Type Department Care Team ([facility] Contact Info) Description 10/28/2024 Documentation Only [facility] [place], [address] [place] [address] Maddy Nunez [place] [address] [place] [address] Social History Tobacco Use Types [...] Visit [facility] [place] [address] [place] [address] Tyrell Oden MD [address] [place] [address] documented as of this encounter Visit Diagnoses Not on filedocumented in this encounter Care Teams Public Bath Attendant Relationship Specialty Start Date End Date Jonatan Anthony MD [facility] [place] [address] [place] PCP - General Internal Medicine 04/29/22 documented as of this encounter
--- OUTSIDE RECORDS SUMMARY | 2025-01-24 12:22 | XMS_ITS | Encounter Summary ---
Author Organization [facility] Address [address] [place] [address] Phone Care Team Providers Care Kiln Hand Name Role Phone Jonatan Anthony MD Primary Care Provider [phone] Encounter Details Date Type Department Care Team ([facility] Contact Info) Description 08/26/2024 Documentation Only [facility] [place], [address] [place] [address] Essence King [place] [address] [place] [address] Social History Tobacco Use Types Packs/Day Years [...] Visit [facility] [place] [address] [place] [address] Tyrell Oden MD [address] [place] [address] documented as of this encounter Visit Diagnoses Not on filedocumented in this encounter Care Teams Kiln Hand Relationship Specialty Start Date End Date Jonatan Anthony MD [facility] [place] [address] [place], [place] PCP - General Internal Medicine 04/29/22 documented as of this encounter
--- OUTSIDE RECORDS SUMMARY | 2025-01-24 12:22 | XMS_ITS ---
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 Vital Signs Height 5ft6in in 12/26/2024 Weight 175 lbs 12/26/2024 BMI 28.24 kg/m2 12/26/2024 Blood pressure systolic 160 mm Hg 12/26/19 25 Blood pressure diastolic 60 mm Hg 025 Procedures Procedure Date Ordered Date Performed Result Body Sit e 22569-RAMCBMT NAIL, 6 OR MORE 12/26/2024 N/A 52667-KQLU SKIN LESIONS, 2 TO 4 12/26/2024 N/A Encounters Encounter Location Date Provider Diagnosis [facility] [address] [address] 12/26/2024 Leticiacandis Dwyer Type 2 diabetes mellitus [...] THERAPY.pdf) Pending Test Test Name Order Date 55110-UNAHMTG NAIL, 6 OR MORE 12/26/2024 44129-PZVZ SKIN LESIONS, 2 TO 4 12/26/19 25 Next Appt Details Follow Up: prn, Reason: Provider Name:Leticia Dwyer , 03/31/2025 09:30:00 AM, [address] [place], [address], Procedure Notes * Category Sub-Category [...] of a nail nipper and/or dremel-type grinder watch parts, to a more viable healthy nail plate [...] to maintain effectiveness in symptomatic relief - 81109 Keratoma Treatment Parring or Cutting o f [...] instrumentation by the physician of record - 67042 Progress Notes * Maninder PACKDOB: [birth year] (74 yo M)Acc No.[id number]:12/26/2024 Progress Note Patient:?Maninder PACK Provider:?Leticia Dwyer DPM :1950???Age:74 Y???Sex:Male Sean e:12/26/2024 Address:[address] [place], [place] [id number] Pcp:Jonatan Anthony Subjective: * Chief Complaints: * [...] yes, walking. ?Marital status: . 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 * Medications:?TakingMultivita min Stool Softener , Notes [...] * Examination: ???CQM Exceptions:: ?Hemoglobin A1c not performed?Reason:?No reason specified?Ophthalmology Referral: ?DIABETES EYE EXAM?Procedure Performed:?Yes ?Date of Exam Performed?09/20/2024 ?Findings of Diabetic Eye Exam:?no retinopathy?General Examination: ?GENERAL APPEARANCE:?Reveals a pleasant, alert, well nourished, well- developed, well hydrated individual, who demonstrates proper attention to hygiene/body habitus, and is in no acute distress, Pt serves as own historian for office visit today.?ORIENTED:?person, place, and time.?FOOT EXAM:?Lower Extremity Neurological Exam performed:?Yes ?Visual exam of foot performed:?Yes ?Date?12/26/2024 ?Sensory testing performed:?sensations diminished ?Sensory and motor testing performed:?sensations diminished ?Pedal pulse taking performed:?2+ ?Footwear Evaluation?Footwear Evaluation performed:?Yes?Vascular: ?DP PULSES (B):?2/4, B/L.?PT PULSES (B):?2/4, B/L.?Neurological: [...] posterior and posterior/superior heel present, LEFT foot,Neg [place].? Assessment: * Assessment: 1.?Type 2 diabetes mellitus [...] 2.?Type 2 diabetes mellitus with diabetic polyneuropathy?Procedure: 31961-JZFV SKIN LESIONS, 2 TO 4 3.?Tinea unguium?Procedure: 93002-HHFFMAF NAIL, 6 OR MORE * Procedures:?Debride Nail [...] a nail nipper and/or dremel- type grinder watch parts, to a more viable healthy nail plate [...] to maintain effectiveness in symptomatic relief - 98474.?Keratoma Treatment:?Parring or Cutting of Benign Hyperkeratotic Lesion(s)?(-56) [...] instrumentation by the physician of record - 06057.? * Procedure Codes:?80873 DEBRI DE NAIL, 6 OR MORE, Modifiers: XS 67782 TRIM SKIN LESIONS, 2 TO 4, Modifiers: [...] Interfil injection therapy, as well as surgical [place]/Calcanectomy- tendon debridement surgical procedures if needed. Recommendations [...] * Provider:Dami Dwyer DPM Date:?2024 Generated for Josiahi simon/Swati/eTransmitting on:?01/24/2025 12:21 PM EST History and Physical Notes * [...] and posterior/superior heel present, LEFT foot, Neg [place] CQM Exceptions: Hemoglobin A1c not performed Reason:: No reason specified
--- OUTSIDE RECORDS SUMMARY | 2025-01-24 12:22 | XMS_ITS | Encounter Summary ---
Author Organization [facility], Address [address] [place] [address] Phone Care Team Providers Care Electromedical Equipment Repairer Name Role Phone Jonatan Anthony MD Primary Care Provider [phone] Reason for Visit * Reason Comments Med Refill Encounter Details Date Type Department Care Team (Late Contact Info) Description 01/31/2023 Refill [facility] [address] [place] [address] Christopher Caicedo PA Social History [...] Upcoming Encounters Date Type Department Care Team ([facility] Contact Info) Description 02/14/2025 11:30 AM EDT Office Visit [facility] [address] [place] [address] Tyrell Oden MD [address] [place] [address] [place] [address] documented as of this encounter Visit Diagnoses Not on filedocumented in this encounter Care Teams Electromedical Equipment Repairer Relationship Specialty Start Date End Date Jonatan Anthony MD [facility] INTERNAL [address] [place] PCP - General Internal Medicine 04/29/22 documented as of this encounter
--- OUTSIDE RECORDS SUMMARY | 2025-01-24 12:22 | XMS_ITS | Encounter Summary ---
Author Organization [facility] Address [address] [place] [address] Phone Care Team Providers Care Vanstone Machine Operator Name Role Phone Jonatan Anthony MD Primary Care Provider [phone] Reason for Visit * Reason Comments Med Refill Encounter Details Date Type Department Care Team ([facility] Contact Info) Description 08/27/2024 Refill [facility] [address] [place] [address] Rakesh King MD [address] [place] [address] [place] [address] Social History Tobacco Use Types [...] Upcoming Encounters Date Type Department Care Team ([facility] Contact Info) Description 02/14/2025 11:30 AM EDT Office Visit [facility] [place] [address] [place] [address] Tyrell Oden MD [address] [place] [address] documented as of this encounter Visit Diagnoses Not on filedocumented in this encounter Care Teams Vanstone Machine Operator Relationship Specialty Start Date End Date Jonatan Anthony MD [facility] [place] [address] [place] PCP - General Internal Medicine 04/29/22 documented as of this encounter
--- OUTSIDE RECORDS SUMMARY | 2025-01-24 12:22 | XMS_ITS | Encounter Summary ---
Author Organization [facility] Address [address] [place] [address] Phone Care Team Providers Care Internet Designer Name Role Phone Jonatan Anthony MD Primary Care Provider [phone] Encounter Details Date Type Department Care Team ([facility] Contact Info) Description 08/26/2024 Documentation Only [facility] [place], [address] [place] [address] Essence King [place] [address] [place] [address] Social History Tobacco Use Types Packs/Day Years [...] Visit [facility] [place] [address] [place] [address] Tyrell Oden MD [address] [place] [address] documented as of this encounter Visit Diagnoses Not on filedocumented in this encounter Care Teams Internet Designer Relationship Specialty Start Date End Date Jonatan Anthony MD [facility] [place] [address] [place], [place] PCP - General Internal Medicine 04/29/22 documented as of this encounter
--- OUTSIDE RECORDS SUMMARY | 2025-01-24 12:22 | XMS_ITS | Encounter Summary ---
Author Organization [facility], Address [address] [place] [address] Phone Care Team Providers Care Family Resource Specialist Name Role Phone Jonatan Anthony MD Primary Care Provider [phone] Reason for Visit * Reason Comments Med Refill Encounter Details Date Type Department Care Team (Late Contact Info) Description 11/18/2022 Refill [facility] [address] [place] [address] Tyrell Oden MD [address] [place] [address] [place] [address] Social History Tobacco Use Types [...] Office Visit [facility] [address] [place] [address] Tyrell Oden MD [address] [place] [address] [place] [address] documented as of this encounter Visit Diagnoses Not on filedocumented in this encounter Care Teams Family Resource Specialist Relationship Specialty Start Date End Date Jonatan Anthony MD [facility] [address] [place] PCP - General Internal Medicine 04/29/22 documented as of this encounter
== END 2025-01-24 11:42 | disposition home or self-care (01) ==
PROVIDERS: PCP Internal Medicine; Visit Provider Nurse Practitioner Family
DX: J15.9 Unspecified bacterial pneumonia (principal); J10.1 Influenza due to other identified influenza virus with other respiratory manifestations

== ENCOUNTER → 2025-01-24 10:49 | Outpatient (BNVA) | payer MEDICARE, SELFPAY | PROVIDERS: PCP Internal Medicine; Visit Provider Nurse Practitioner Family | DX: J15.9 Unspecified bacterial pneumonia (principal); J10.1 Influenza due to other identified influenza virus with other respiratory manifestations | CPT/HCPCS: 96127; 99212 ==

== ENCOUNTER 2025-02-04 14:02 | Outpatient (REF) | payer MEDICARE, SELFPAY ==
[2025-02-04 15:15] LABS: Alanine Aminotransferase 26 U/L (0-40); Albumin Level 3.8 g/dL (3.5-5.0); Aspartate Amino Transferase 30 U/L (5-37); Bilirubin Direct 0.1 mg/dL (0.0-0.5); Bilirubin Total 0.4 mg/dL (0.0-1.0)
[2025-02-04 15:43] LABS: Alkaline Phosphatase 111 U/L (39-117)
[2025-02-05 08:50] LABS: HBS Num1 > 1000.00 mIU/mL (0-7.99); HBsAGNum1 0.27 S/CO (0.00-0.99); Hepatitis B Surface Antigen Negative (Negative); ~Hepatitis B Surface Antibody REACTIVE (Nonreactive)
[2025-02-05 15:13] LABS: Hepatitis B Viral DNA Qn - cp <1.00 DETECTED Log IU/mL (NOT DETECTED); Hepatitis B Viral DNA Qn-IU/mL <10 DETECTED IU/mL (NOT DETECTED)
== END 2025-02-04 14:03 | disposition home or self-care (01) ==
LOC: HO.LAB 14:02
PROVIDERS: PCP Internal Medicine; Visit Provider Internal Medicine
DX: B18.1 Chronic viral hepatitis B without delta-agent (principal)
CPT/HCPCS: 36415; 80076; 86706; 87340; 87517

== ENCOUNTER 2025-02-06 09:13 | Outpatient (AMB) | payer MEDICARE, SELFPAY ==
[2025-02-06 09:23] VITALS: BP 152/62; PULSE 62; O2SAT 94; BMI 28.1
--- NOTE | 2025-02-06 09:23 | MHC.PC.OV ---
Vital Signs 02/06/25 09:23 Height 5 ft 6 in Weight 174 lb BMI 28.1 BP 152/62 H Blood Pressure Location Rt brachial Position Sitting Pulse 62 Pulse Source Pulse Oximeter Pulse Oximetry (%) 94 Oxygen Delivery Method Room Air Intake Visit Reasons: CKD, renal transplant, DM Allergies Penicillins [PENICILLINS] Allergy (Unknown, Verified 02/06/25 09:24) UNKNOWN rosuvastatin [From Crestor] Allergy (Verified 02/06/25 09:24) Muscle Pain atorvastatin [From Lipitor] Adverse Reaction (Verified 02/06/25 09:24) Muscle Pain Tobacco use date assessed: 01/24/25 Fall risk assessment: No Falls in past year Last assessed Fall Risk: 02/06/25 Dental Screening Dental Screen Date: 01/24/25 [facility] Medical History (Updated 01/24/25 @ 11:08 by Mela Cherry NP) Influenza A Community acquired bacterial pneumonia Anal fissure Screening for prostate cancer Hypercholesterolemia Hepatitis C virus infection cured after antiviral drug therapy Obesity (BMI 30-39.9) BPH (benign prostatic hyperplasia) Pulmonary nodule, left Right patella fracture Cervical spondylosis Anemia HTN (hypertension) Kidney failure Surgical History History of esophagogastroduodenoscopy (EGD) History of renal transplant History of colonoscopy History of cholecystectomy Fistula of artery Family History Father No problems noted. Mother No problems noted. Brother No problems noted. Brother No problems noted. Social History Household Members: Spouse Housing: House Do you presently have visiting nurse or other home services: No Alcohol intake: former Comment: quit 2004 Patient Tobacco Use Status: Former Tobacco user Tobacco use type: Cigarette Years Smoked: quit 1995 e-Cigarette/Vaping Use: Never Used Second Hand Smoke Exposure: No Advance Directives Date on File: 02/04/21 service: No Current occupational status: retired Cognitive needs: No Hearing needs: No Vision needs: Yes Questionnaire PHQ-9 Over the last 2 weeks, how often have you been bothered by any of the following problems? 1. Little interest or pleasure in doing things: not at all 2. Feeling down, depressed, or hopeless: not at all 3. Trouble falling or staying asleep, or sleeping too much: not at all 4. Feeling tired or having little energy: several days 5. Poor appetite or overeating: not at all 6. Feeling bad about yourself - or that you are a failure or have let yourself or your family down: not at all 7. Trouble concentrating on things, such as reading the newspaper or watching television: more than half the days 8. Moving or speaking so slowly that other people could have noticed. Or the opposite - being so fidgety or restless that you have been moving around a lot more than usual: not at all 9. Thoughts that you would be better off or of hurting yourself in some way: not at all Total score: 3 Depression Screening Interpretation: Negative Depression Screening Done: Yes 29635 - PHQ-9 Billing: Yes Source: Developed by Drs. Giuliano العلي, Nguyen Bañuelos, Tristan Perales and colleagues, with an educational gabby from [employer]. Thrive Questionnaire Date Thrive assessed: 02/06/25 I am a: Patient What is your living situation today?: I have a steady place to live Within the past 12 months, did the food you bought not last and you didn't have the money to get more?: Never true Within the past 12 months, did you worry whether your food would run out before you got money to buy more?: Never true Do you have trouble paying for medicines?: No Do you have trouble getting transportation to medical appointments?: No Do you have trouble paying your heating and electricity bill?: No Do you have trouble taking care of your child, family member or friend?: No Do you have trouble with day-to-day activities such as bathing, preparing meals, shopping, managing finances, etc.?: No Are you currently unemployed and looking for a job?: No Are you interested in more education?: No Please select the resources that you would like help with: None Currently or been in a relationship where the following occur: No concerns reported THRIVE Score: 0 AUDIT C Alcohol Use Questionnaire (AUDIT-C) 1. How often do you have a drink containing alcohol?: Never 3. How often do you have six or more drinks on one occasion?: Never Total Score: 0 LESA-7 AMB Questionnaire LESA-7 Date LESA - 7 assessed: 01/24/25 Source: Developed by Drs. Giuliano العلي, Nguyen Bañuelos, Tristan Perales and colleagues, with an educational gabby from [employer]. Physical exam (Primary Care) Vital Signs: Last Vital Signs Pulse 62 02/06/25 09:23 BP 152/62 H 02/06/25 09:23 Pulse Ox 94 02/06/25 09:23 Oxygen Delivery Method Room Air 02/06/25 09:23 BMI result Body Mass Index 28.1 Tobacco/Smoking Status: Tobacco use Status Tobacco use date assessed 01/24/25 02/06/25 09:31 Patient Tobacco Use Status Former Tobacco user 02/06/25 09:31 Tobacco use type Cigarette 02/06/25 09:31 e-Cigarette/Vaping Use Never Used 02/06/25 09:31 PHQ-9: PHQ-9 Score PHQ-9: Total score 3 02/06/25 09:49 Depression Screening Interpretation: Negative Thrive Assessment: Date of Thrive Assessment Date Thrive assessed 02/06/25 02/06/25 09:31 Currently or been in a relationship where the following occur: No concerns reported Const General: alert; No acute distress Eyes Conjunctivae: conjunctivae normal Resp Auscultation: clear to auscultation bilaterally Cardio Rate: regular rate Rhythm: regular rhythm GI Inspection: Yes normal to inspection Extrem General: Yes normal to inspection and No edema Coding Level of Care Code Est Pt Level 4 (97526) Complex EM visit Add On G2211 Diagnoses Renal transplant recipient Z94.0 Essential hypertension I10 Hypertension type: essential hypertension Anemia due to chronic kidney disease, on chronic dialysis N18.6; D63.1; Z99.2 Anemia type: due to chronic kidney disease Chronic kidney disease stage: on chronic dialysis Hypercholesterolemia E78.00 Type 2 diabetes mellitus with hyperglycemia, without long-term current use of insulin E11.65 Diabetes mellitus prison insulin use: without prison use CKD (chronic kidney disease) stage 4, GFR 15-29 ml/min N18.4 Additional Codes PHQ-9 - 01563 - PHQ-9 Billing: Yes ([id number]) Assessment & Plan Assessment & Plan (1) Renal transplant recipient: Comment: Cadaveric renal transplant right iliac fossa September 2021 Code(s): Z94.0 - Kidney transplant status Category: Surgical Plan: Continue to follow-up with Nephrology (2) HTN (hypertension): Code(s): I10 - Essential (primary) hypertension Category: Medical Qualifiers: Hypertension type: essential hypertension Qualified Code(s): I10 - Essential (primary) hypertension Plan: Continue with blood pressure medication. Decrease salt intake and exercise on carvedilol 25 mg twice a day nifedipine 30 mg once a day spironolactone 25 mg once a day on torsemide 60 mg twice a day (3) Anemia: Code(s): D64.9 - Anemia, unspecified Category: Medical Qualifiers: Anemia type: due to chronic kidney disease Chronic kidney disease stage: on chronic dialysis Qualified Code(s): N18.6 - End stage renal disease; D63.1 - Anemia in chronic kidney disease; Z99.2 - Dependence on renal dialysis Plan: Continue to monitor this is stable (4) Hypercholesterolemia: Code(s): E78.00 - Pure hypercholesterolemia, unspecified Category: Medical Plan: Avoid fried foods, chicken skin, eggs, butter margarine, pastries and meat. Be it pork or beef they have a lot of cholesterol LDL goal of less than 100 and triglyceride of less than 150 patient is still above on Zetia 10 mg once a day (5) Type 2 diabetes mellitus with hyperglycemia: Comment: [facility] Code(s): E11.65 - Type 2 diabetes mellitus with hyperglycemia Category: Medical Qualifiers: Diabetes mellitus rn long term care insulin use: without rn long term care use Qualified Code(s): E11.65 - Type 2 diabetes mellitus with hyperglycemia Plan: Decrease the amount of carbohydrate intake, pasta, bread, rice and potatoes are all sugar and that is aside from all the sweet stuff, remember that fruits are good but they are Sweet also. Hemoglobin A1c goal of less than 7.0 patient is at goal on Jardiance 10 mg once a day February A1c is at goal 5.7 (6) CKD (chronic kidney disease) stage 4, GFR 15-29 ml/min: Code(s): N18.4 - Chronic kidney disease, stage 4 (severe) Category: Medical Plan: Continue to monitor renal function patient is under Nephrology Plan History of Present Illness The patient is a 74-year-old male presenting for a follow-up regarding his renal transplantation and chronic medical conditions. 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 On review, laboratory assays from December noted stable anemia and leukopenia with a hemoglobin level of 12.6 and normal platelet count. Renal function remained relatively stable with creatinine levels between 2.2 and 2.4, and a BUN of 28. His lipid profile displayed an LDL of 110 in December, indicating a need for further control. Despite this, his diabetes management, reflected in a December HbA1c of 5.7, remained on target with current therapy. Recent medical encounters included treatment for Influenza A with Tamiflu and an episode of pneumonia. Additional patient concerns included eczema, primarily handled with topical applications, transient fatigue, and episodes of elevated blood pressure. Health Maintenance - Influenza vaccination acknowledged. - Regular blood pressure monitoring. - Lipid management with ongoing lipid-lowering therapy. - Diabetes management with HbA1c at 5.7%, within target. - Routine laboratory evaluation including renal function and anemia monitoring. Social History - Reports not frying food at home and occasional consumption of eggs. - Includes chicken, salmon, and limited pork or beef in his diet profile. - Regular participation in community gatherings. Review of Systems - General: Reports transient fatigue. - Respiratory: Reports runny nose, shortness of breath. - Dermatological: Reports rash on hands possibly related to eczema. - Constitutional: Denies new fever at this time. Physical Exam Results - Labs: Hemoglobin 12.6 with stable anemia and mild leukopenia. Creatinine 2.2 to 2.4, BUN 28. HbA1c 5.7. - Lipid Profile: LDL 110 (December 2024). - Recent colon test in January 2023. Plan The patient will maintain his current regimen for managing his chronic conditions, including hypertension, hyperlipidemia, diabetes, and renal function, with scheduled follow-ups. Hypertension medications are under continued monitoring, while lifestyle adjustments are advised for lipid control along with Zetia treatment. Diabetes management will continue with jardiance, given the stable HbA1c value. A future fasting lipid panel is planned, and renal function will be consistently evaluated in collaboration with nephrology. Topicals are to be applied for eczema, and a prescription refill is directed for sustained skin care with directions for consistent application. Patient was informed and verbally consented to the use of an ambient scribe for clinic note documentation during this visit. Discussion Notes I discussed the ongoing management of the patient?s renal transplant post-care, hypertension, diabetes, and lipid control. For hypertension, current medications will continue under nephrology guidance. I recommended staying on Zetia for lipid management and advised on dietary considerations. The anemia and leukopenia are stable, with no immediate cause for concern. We agreed on a three-month follow-up for repeat lipid panels to monitor LDL levels. Skin care for eczema was discussed, with instructions for using topical creams as prescribed. I emphasized preventive measures and adherence to medications to ensure effective long-term management. Patient safety was a priority with advice given to monitor any potential symptoms requiring early attention. Patient Instructions - Monitor blood pressure and report any significant changes. - Continue current medications for hypertension and consult nephrology as scheduled. - Adhere to prescribed Zetia and dietary adjustments to manage cholesterol. - Apply topical cream as directed for eczema twice daily. - Return in three months for follow-up blood work and lipid panel. - Maintain diabetes management regimen with jardiance. - Seek medical attention for any concerning symptoms or significant changes in health. Orders: Orders Lipid Panel 3 Months E78.00 - Pure hypercholesterolemia, unspecified Comprehensive Met. Panel 3 Months E78.00 - Pure hypercholesterolemia, unspecified Vitamin B12 and Folate 3 Months E78.00 - Pure hypercholesterolemia, unspecified Free T4 (Free Thyroxine) 3 Months E78.00 - Pure hypercholesterolemia, unspecified Complete Blood Count Auto Diff 3 Months E78.00 - Pure hypercholesterolemia, unspecified Hemoglobin A1c 3 Months E78.00 - Pure hypercholesterolemia, unspecified Thyroid Stimulating Hormone 3 Months E78.00 - Pure hypercholesterolemia, unspecified Medications: Refilled triamcinolone acetonide 0.5% 1 appl topical BID 30 grams 0RF L30.9 - Dermatitis, unspecified
== END 2025-02-06 10:04 | disposition home or self-care (01) ==
LOC: HO.HMCH 09:14
PROVIDERS: PCP Internal Medicine; Visit Provider Internal Medicine
DX: I12.9 Hypertensive chronic kidney disease with stage 1 through stage 4 chronic kidney disease, or unspecified chronic kidney disease (principal); N18.6 End stage renal disease; Z99.2 Dependence on renal dialysis; E11.65 Type 2 diabetes mellitus with hyperglycemia; N18.4 Chronic kidney disease, stage 4 (severe); Z94.0 Kidney transplant status; D63.1 Anemia in chronic kidney disease; E78.00 Pure hypercholesterolemia, unspecified

== ENCOUNTER → 2025-02-06 09:13 | Outpatient (BNVA) | payer MEDICARE, SELFPAY | PROVIDERS: PCP Internal Medicine; Visit Provider Internal Medicine | DX: I12.0 Hypertensive chronic kidney disease with stage 5 chronic kidney disease or end stage renal disease (principal); N18.6 End stage renal disease; E11.22 Type 2 diabetes mellitus with diabetic chronic kidney disease; D63.1 Anemia in chronic kidney disease; E78.00 Pure hypercholesterolemia, unspecified; E11.65 Type 2 diabetes mellitus with hyperglycemia; Z99.2 Dependence on renal dialysis; Z87.891 Personal history of nicotine dependence | CPT/HCPCS: 96127; 99212 ==

== ENCOUNTER 2025-04-08 09:08 | Outpatient (REF) | payer MEDICARE, SELFPAY ==
[2025-04-08 09:54] LABS: Hemoglobin 13.4 g/dl (14.0-18.0); Mean Corpuscular HGB Conc 31.9 g/dl (31.0-36.0); Mean Corpuscular Hemoglobin 29.2 pg (27.0-33.0); Mean Corpuscular Volume 91.5 fL (80.0-98.0); Mean Platelet Volume 9.6 fL (9.4-12.4); Platelet Count 184 X10*3/uL (160-400); Red Blood Count 4.59 X10*6/uL (4.60-5.80); Red Cell Distribution Width 13.8 % (11.0-16.0); White Blood Count 3.6 X10*3/uL (4.8-10.8)
[2025-04-08 10:28] LABS: Estimated Average Glucose 108 mg/dL; Hemoglobin A1C 128.8824 umol/L; Hemoglobin A1c % 5.4 % (<6.0); Total Hemoglobin (HGBA1C) 3605.3612 umol/L
[2025-04-08 10:53] LABS: Alanine Aminotransferase 31 U/L (0-40); Albumin Level 4.1 g/dL (3.5-5.0); Alkaline Phosphatase 92 U/L (39-117); Anion Gap 11 (12-20); Aspartate Amino Transferase 35 U/L (5-37); Bilirubin Total 0.5 mg/dL (0.0-1.0); Blood Urea Nitrogen 37 mg/dL (9-16); Calcium 10.9 mg/dL (8.4-10.2); Carbon Dioxide 23 mmol/L (22-29); Chloride 110 mmol/L (96-108); Cholesterol 199 mg/dL (<200); Estimated Glomerular Filt Rate 39; Glucose Random 123 mg/dL (60-115); HDL Cholesterol 52 mg/dL (>40); LDL Cholesterol Calculated 121 mg/dL (<100); Potassium 4.8 mmol/L (3.3-5.1); Sodium 139 mmol/L (135-145); Total Protein 6.8 g/dL (6.5-8.0); Triglycerides 134 mg/dL (<150)
[2025-04-08 10:54] LABS: Free T4 (Free Thyroxine) 1.12 ng/dL (0.71-1.85)
[2025-04-08 10:57] LABS: Atypical Lymph Absolute Manual 0.2 x10*3/uL; Atypical Lymphs Percent Manual 5 % (0-6); Band Neutrophils Percent 1 % (3-5); Basophils Percent Manual 1 % (0-2); Eosinophils Absolute Manual 0.1 X10*3/uL (0.0-0.4); Eosinophils Percent Manual 3 % (0-4); Lymphocytes Absolute Manual 1.2 X10*3/uL (1.2-4.9); Lymphocytes Percent Manual 32 % (20-40); Monocytes Absolute Manual 0.4 X10*3/uL (0.1-1.2); Monocytes Percent Manual 10 % (2-11); Neutrophils Absolute Manual 1.8 X10*3/uL (2.0-8.3); Neutrophils Percent Manual 48 % (45-73)
[2025-04-08 11:00] LABS: Burr Cells 1+ (0-2) /OIF; Ovalocytes 1+ (5-14) /OIF; Platelet Estimate NORMAL (NORMAL); Platelet Morphology Comment NORMAL; RBC Morphology NORMAL; Smudge Cells PRESENT
[2025-04-08 11:04] LABS: Folate 16.4 ng/mL (> or = 4.0); Vitamin B12 1156 pg/mL (200-900)
[2025-04-08 11:17] LABS: HBsAGNum1 0.36 S/CO (0.00-0.99); Hepatitis B Surface Antigen Negative (Negative)
[2025-04-09 14:13] LABS: Hepatitis B Viral DNA Qn-IU/mL 16 IU/mL (NOT DETECTED)
== END 2025-04-08 09:09 | disposition home or self-care (01) ==
LOC: HO.LAB 09:08
PROVIDERS: Internal Medicine; PCP Internal Medicine; Visit Provider Internal Medicine
DX: E78.00 Pure hypercholesterolemia, unspecified (principal); B18.1 Chronic viral hepatitis B without delta-agent; Z13.1 Encounter for screening for diabetes mellitus
CPT/HCPCS: 36415; 80053; 80061; 82607; 82746; 83036; 84439; 84443; 85007; 85027; 87340; 87517

== ENCOUNTER 2025-04-10 09:30 | Outpatient (AMB) | payer MEDICARE, SELFPAY ==
[2025-04-10 09:36] VITALS: BP 124/72; PULSE 65; O2SAT 96; BMI 27.8
--- NOTE | 2025-04-10 09:36 | MHC.PC.OV ---
Vital Signs 04/10/25 09:36 Height 5 ft 6 in Weight 172 lb BMI 27.8 BP 124/72 Blood Pressure Location Rt brachial Position Sitting Pulse 65 Pulse Source Pulse Oximeter Pulse Oximetry (%) 96 Oxygen Delivery Method Room Air Intake Visit Reasons: DM Allergies Penicillins [PENICILLINS] Allergy (Unknown, Verified 04/10/25 09:36) UNKNOWN rosuvastatin [From Crestor] Allergy (Verified 04/10/25 09:36) Muscle Pain atorvastatin [From Lipitor] Adverse Reaction (Verified 04/10/25 09:36) Muscle Pain Tobacco use date assessed: 01/24/25 Fall risk assessment: No Falls in past year Last assessed Fall Risk: 04/10/25 Dental Screening Dental Screen Date: 01/24/25 [facility] Medical History (Updated 04/10/25 @ 10:05 by Jonatan Anthony MD) Chronic kidney disease Influenza A Community acquired bacterial pneumonia Anal fissure Screening for prostate cancer Hypercholesterolemia Hepatitis C virus infection cured after antiviral drug therapy Obesity (BMI 30-39.9) BPH (benign prostatic hyperplasia) Pulmonary nodule, left Right patella fracture Cervical spondylosis Anemia HTN (hypertension) Kidney failure Surgical History History of esophagogastroduodenoscopy (EGD) History of renal transplant History of colonoscopy History of cholecystectomy Fistula of artery Family History Father No problems noted. Mother No problems noted. Brother No problems noted. Brother No problems noted. Social History Household Members: Spouse Housing: House Do you presently have visiting nurse or other home services: No Alcohol intake: former Comment: quit 2004 Patient Tobacco Use Status: Former Tobacco user Tobacco use type: Cigarette Years Smoked: quit 1995 e-Cigarette/Vaping Use: Never Used Second Hand Smoke Exposure: No Advance Directives Date on File: 02/04/21 service: No Current occupational status: retired Cognitive needs: No Hearing needs: No Vision needs: Yes Questionnaire PHQ-9 Over the last 2 weeks, how often have you been bothered by any of the following problems? 1. Little interest or pleasure in doing things: not at all 2. Feeling down, depressed, or hopeless: not at all 3. Trouble falling or staying asleep, or sleeping too much: not at all 4. Feeling tired or having little energy: not at all 5. Poor appetite or overeating: not at all 6. Feeling bad about yourself - or that you are a failure or have let yourself or your family down: not at all 7. Trouble concentrating on things, such as reading the newspaper or watching television: not at all 8. Moving or speaking so slowly that other people could have noticed. Or the opposite - being so fidgety or restless that you have been moving around a lot more than usual: not at all 9. Thoughts that you would be better off or of hurting yourself in some way: not at all Total score: 0 Depression Screening Interpretation: Negative Depression Screening Done: Yes Source: Developed by Drs. Giuliano العلي, Nguyen Bañuelos, Tristan Perales and colleagues, with an educational gabby from [employer]. Thrive Questionnaire Date Thrive assessed: 02/06/25 I am a: Patient What is your living situation today?: I have a steady place to live Within the past 12 months, did the food you bought not last and you didn't have the money to get more?: Never true Within the past 12 months, did you worry whether your food would run out before you got money to buy more?: Sometimes True Do you have trouble paying for medicines?: No Do you have trouble getting transportation to medical appointments?: No Do you have trouble paying your heating and electricity bill?: No Do you have trouble taking care of your child, family member or friend?: No Do you have trouble with day-to-day activities such as bathing, preparing meals, shopping, managing finances, etc.?: No Are you currently unemployed and looking for a job?: No Are you interested in more education?: No Please select the resources that you would like help with: Paying for medicine Currently or been in a relationship where the following occur: No concerns reported THRIVE Score: 1 AUDIT C Alcohol Use Questionnaire (AUDIT-C) 1. How often do you have a drink containing alcohol?: Never 3. How often do you have six or more drinks on one occasion?: Never Total Score: 0 LESA-7 AMB Questionnaire LESA-7 Date LESA - 7 assessed: 04/10/25 Feeling nervous, anxious, or on edge: 2 = More than half the days Not being able to stop or control worryin = More than half the days Worrying too much about different things: 0 = Not at all Trouble relaxin = Not at all Being so restless that it is hard to sit still: 0 = Not at all Becoming easily annoyed or irritable: 0 = Not at all Feeling afraid as if something awful might happen: 0 = Not at all Total LESA-7 score (0-4 normal; 5-9 mild; 10-14 moderate; 15-21 severe): 4 Source: Developed by Drs. Giuliano العلي, Nguyen Bañuelos, Tristan Perales and colleagues, with an educational gabby from [employer]. Physical exam (Primary Care) Vital Signs: Last Vital Signs Pulse 65 04/10/25 09:36 BP 124/72 04/10/25 09:36 Pulse Ox 96 04/10/25 09:36 Oxygen Delivery Method Room Air 04/10/25 09:36 BMI result Body Mass Index 27.8 Tobacco/Smoking Status: Tobacco use Status Tobacco use date assessed 01/24/25 04/10/25 09:39 Patient Tobacco Use Status Former Tobacco user 04/10/25 09:39 Tobacco use type Cigarette 04/10/25 09:39 e-Cigarette/Vaping Use Never Used 04/10/25 09:39 PHQ-9: PHQ-9 Score PHQ-9: Total score 0 04/10/25 09:39 Depression Screening Interpretation: Negative Thrive Assessment: Date of Thrive Assessment Date Thrive assessed 02/06/25 04/10/25 09:39 Currently or been in a relationship where the following occur: No concerns reported Const General: alert; No acute distress Eyes Conjunctivae: conjunctivae normal Resp Auscultation: clear to auscultation bilaterally Cardio Rate: regular rate Rhythm: regular rhythm GI Inspection: Yes normal to inspection Skin Full body images: 1. 4 x 4 cm on the right gluteal area with some induration of the skin but no redness noted tender on compression Extrem General: Yes normal to inspection and No edema Coding Level of Care Code Est Pt Level 4 (39945) Complex EM visit Add On G2211 Diagnoses CKD (chronic kidney disease) stage 4, GFR 15-29 ml/min N18.4 Type 2 diabetes mellitus with hyperglycemia, without long-term current use of insulin E11.65 Diabetes mellitus care home insulin use: without middle or intermediate school principal use Renal transplant recipient Z94.0 Hypercholesterolemia E78.00 Essential hypertension I10 Hypertension type: essential hypertension Pilonidal abscess L05.01 Assessment & Plan Assessment & Plan (1) CKD (chronic kidney disease) stage 4, GFR 15-29 ml/min: Code(s): N18.4 - Chronic kidney disease, stage 4 (severe) Category: Medical Plan: Keep well hydrated avoid NSAIDs (2) Type 2 diabetes mellitus with hyperglycemia: Comment: Eye and [facility] Code(s): E11.65 - Type 2 diabetes mellitus with hyperglycemia Category: Medical Qualifiers: Diabetes mellitus care home insulin use: without middle or intermediate school principal use Qualified Code(s): E11.65 - Type 2 diabetes mellitus with hyperglycemia Plan: Decrease the amount of carbohydrate intake, pasta, bread, rice and potatoes are all sugar and that is aside from all the sweet stuff, remember that fruits are good but they are Sweet also. Hemoglobin A1c goal of less than 7.0 patient on Jardiance 10 mg once a day (3) Renal transplant recipient: Comment: [facility] renal transplant right iliac fossa September 2021 Code(s): Z94.0 - Kidney transplant status Category: Surgical Plan: Continue to follow-up with Nephrology (4) Hypercholesterolemia: Code(s): E78.00 - Pure hypercholesterolemia, unspecified Category: Medical Plan: Avoid fried foods, chicken skin, eggs, butter margarine, pastries and meat. Be it pork or beef they have a lot of cholesterol patient can not take statins on Zetia. Goal of less than 100 LDL (5) HTN (hypertension): Code(s): I10 - Essential (primary) hypertension Category: Medical Qualifiers: Hypertension type: essential hypertension Qualified Code(s): I10 - Essential (primary) hypertension Plan: Continue with blood pressure medication. Decrease salt intake and exercise patient on carvedilol nifedipine 30 mg once a day spironolactone 25 mg once a day (6) Pilonidal abscess: Code(s): L05.01 - Pilonidal cyst with abscess Category: Medical Plan History of Present Illness The patient is a 74-year-old male presenting for follow-up on his chronic medical issues and evaluation of a newly developed lump. The patient reports a history of various chronic conditions including essential hypertension, hypercholesterolemia, and Type 2 Diabetes Mellitus with chronic kidney disease. As a renal transplant recipient, he manages his diabetes with Jardiance and has shown good control based on recent hemoglobin A1c results. However, his LDL cholesterol remains elevated despite treatment with Zetia, as he is intolerant to statins. Lab work from March indicates mild anemia and consistent leukopenia, with stable renal function shown by creatinine levels. There is also a record of persistent hypercalcemia managed with Sinecalset. In terms of new symptoms, the patient has observed a growing lump on his right buttock over the past weeks, which has become painful, particularly when sitting. This may indicate a pylonidal cyst, possibly infected, prompting an urgent referral to surgery. Additionally, he suffers from leg cramps, potentially due to electrolyte imbalances from diuretics used for his kidney condition. Health Maintenance - Regular monitoring of blood glucose levels and hemoglobin A1c to maintain levels below 7.0. - Management of cholesterol with target LDL levels under 100 mg/dL, current medication Zetia due to statin intolerance. - Continued follow-up with nephrology to oversee renal function and electrolyte management. - Blood pressure management with current regimen including Carvedilol, Nifedipine, and Spironolactone. - Maintenance of hydration status, considering diuretic therapy, to mitigate leg cramps. - Monitoring and maintaining serum calcium levels due to hypercalcemia. - Referral to a surgeon for evaluation and potential management of the lump suspected as a pylonidal cyst. Social History - Patient maintains a diet with emphasis on salads, chicken, and salmon while avoiding excessive consumption of meats and high-cholesterol foods. - Regular lifestyle includes hydration maintenance due to medication-related dehydration implications. - Balances intake with diuretic medications to manage side effects like leg cramps. Review of Systems - Constitutional: Reports well-being. - Cardiovascular: Reports stable blood pressure with current regimen. - Endocrine: Reports stable blood sugar control with Jardiance. - Renal: Reports stable creatinine levels. - Musculoskeletal: Reports persistent leg cramps. - Skin/Subcutaneous Tissue: Reports new growing lump on the right buttock. - Hematologic: Reports mild anemia, leukopenia. - Gastrointestinal: Denies any recent issues; maintains diet. Physical Exam - Skin- Noted a growing lump on the right buttock. Results - Labs: Mild anemia with hemoglobin at 13.5; leukopenia; stable creatinine of 1.74 mg/dL; increased calcium levels; LDL cholesterol at 121 mg/dL; normal liver function tests; normal platelet count. Plan 1. 0. Zetia therapy will be sustained to address elevated LDL levels, with regular monitoring to assess its effectiveness. Sinecalset will address hypercalcemia, and blood tests will continue periodically to monitor renal and hematologic parameters. The newly identified swelling on the buttock requires a surgical consultation, as it's suspected to be a pylonidal cyst. Due to a history of penicillin allergy, alternative antibiotics will be considered post-evaluation. Hydration and careful electrolyte monitoring are essential due to diuretic use. Regular reviews with nephrology are necessary to oversee kidney function and adjust therapies as needed.: Patient was informed and verbally consented to the use of an ambient scribe for clinic note documentation during this visit. Discussion Notes I discussed the management strategies for each chronic condition with the patient, emphasizing the importance of maintaining blood pressure, cholesterol, and glycemic control. The elevated LDL cholesterol level will continue to be managed with Zetia due to his intolerance to statins. The potential pylonidal cyst was highlighted, and I explained the need for urgent surgical evaluation and possible intervention. We talked about his symptoms of leg cramps, and I advised maintaining hydration due to diuretics. He was informed about the risks of infection worsening due to diabetes and instructed to monitor the lump for changes. The need for an alternative antibiotic due to penicillin allergy was communicated, with follow-up planned after surgical consultation. Patient Instructions - Continue taking Jardiance and other prescribed medications as directed. - Maintain your current diet, focusing on low-cholesterol foods. - Drink plenty of fluids to stay hydrated. - Monitor blood sugar levels regularly and aim to keep A1c below 7.0. - Avoid eating pork and beef frequently, stick mostly to chicken and fish. - Check the lump frequently, and watch out for any changes in size or pain. - Attend the referred surgical consultation urgently for further evaluation of the lump. - Follow up with nephrology appointments to review kidney function and blood test results. - Inform the healthcare provider of any new symptoms or changes in health. Orders: Referrals General Surgery Referral L05.01 - Pilonidal cyst with abscess Medications: New doxycycline hyclate 100 mg PO BID 7 days 14 caps 0RF L05.01 - Pilonidal cyst with abscess
--- OUTSIDE RECORDS SUMMARY | 2025-04-10 09:48 | XMS_ITS | Clinical Summary ---
Author Organization [facility] it Address [address] [place] [address] Care Team Providers Care Stripping Shovel Operator Name Role Phone Unavailable Primary Care Provider Unavailabl e Encounters Date Type Department Care Team Description 02/12/2025 Telephone Gastroenterology - [address] [place] [address] Stan Uribe MD from Last 3 Months Social History Tobacco Use Types Packs/Day Years Used Date Smoking Tobacco: Never Assessed Sex and Gender Information Value Date Recorded Sex Assigned at Not on file Legal Sex Male 5:46 AM EST Gender Identity Not on file Sexual Orientation Not on file Plan of Treatment Health Maintenance Due Date Last Done Comments Diabetes: Annual GFR (Glomerular Filtration Rate) 1950 Diabetes: Annual Foot Exam 1960 Diabetes: Annual Retina Eye Exam 1960 RSV Immunization Adult Patients (1 - Risk 60-74 years 1-dose series) 2010 Zoster Vaccines (1 of 2) 11/01/2013 09/06/2013 Pneumococcal Vaccine: 50+ Years (3 of 3 - PPSV23, PCV20 or PCV21) 03/14/2017 01/17/2017, 09/12/2016, 09/07/2007 DTaP,Tdap,and Td Vaccines (3 - Td or Tdap) 01/24/2024 01/23/2014, 10/18/2007 COVID-19 Vaccine ( - season) 2024 01/21/2022, 02/12/2021, 12/31/2020 Cholesterol Screening (Lipid Panel) 02/12/2025 Colorectal Cancer Screening: Colonoscopy 02/12/2025 Depression Screening 02/12/2025 Diabetes: Annual Urine Albumin-Creatinine Ratio (uACR) 02/12/2025 Falls Risk Assessment 02/12/2025 Hepatitis C Screening 02/12/2025 Hypertension/CHF/CAD Annual BMP Blood Test 02/12/2025 Social Influencers of Health Screening 02/12/2025 Diabetes: Blood Sugar Control Test (HGBA1C) 04/08/2025 10/09/2024, 10/09/2024, 05/01/2024 Influenza Vaccine (Season Ended) 2025 08/13/2018, 09/13/2017, 09/04/2014, Additional history exists Hepatitis A Vaccines Aged Out 02/18/2000, 02/12/19 99 No longer eligible based on patient's age to complete this topic Hepatitis B Vaccines Completed 09/11/2000, 03/20/2000, 02/18/2000 HIB Vaccines Aged Out No longer eligi ble based on patient's age to complete this topic HPV Vaccines Aged Out No longer eligi ble based on patient's age to complete this topic IPV Vaccines Aged Out No longer eligi ble based on patient's age to complete this topic MMR Vaccines Aged Out No longer eligi ble based on patient's age to complete this topic Meningococcal ACWY Vaccine Aged Out N o longer eligible based on patient's age to complete this topic Meningococcal B Vaccine Aged Out No l onger eligible based on patient's age to complete this topic RSV Immunization Patients Under 20 months Aged Out No longer eligible based on patient's age to complete this topic Varicella Vaccines Aged Out No longer eligible based on patient's age to complete this topic
--- OUTSIDE RECORDS SUMMARY | 2025-04-10 09:48 | XMS_ITS | Encounter Summary ---
Author Organization [facility], Address [address] [place] [address] Phone Care Team Providers Care Gasoline Plant Operator Name Role Phone Jonatan Anthony MD Primary Care Provider [phone] Reason for Visit * Reason Comments Med Refill Encounter Details Date Type Department Care Team (Late st Contact Info) Description 01/31/2023 Refill [facility] [address] [place] [address] Christopher Caicedo PA Social History [...] Upcoming Encounters Date Type Department Care Team (Latest Contact Info) Description 04/11/2025 10:30 AM EDT Office Visit [facility] [address] [place] [address] Tyrell Oden MD [address] [place] [address] [place] [address] Kidney replaced by transplant (Primary Dx); Personal history of immunosuppression therapy; Stage 3b chronic kidney disease (HCC); Hypertension; Type 2 diabetes mellitus with diabetic chronic kidney disease (HCC) documented as of this encounter Visit Diagnoses Not on filedocumented in this encounter Care Teams Gasoline Plant Operator Relationship Specialty Start Date End Date Jonatan Anthony MD [facility] [address] [place] PCP - General Internal Medicine 04/29/22 documented as of this encounter
--- OUTSIDE RECORDS SUMMARY | 2025-04-10 09:48 | XMS_ITS | Encounter Summary ---
Author Organization [facility] Address [address] [place] [address] Phone Care Team Providers Care Chemical Technician Name Role Phone Jonatan Anthony MD Primary Care Provider [phone] Encounter Details Date Type Department Care Team (Late st Contact Info) Description 10/05/2023 Documentation Only [facility] [address] [place] [address] Tyrell Oden MD [address] [place] [address] [place] [address] Social History Tobacco Use Types [...] Visit [facility] [address] [place] [address] Tyrell Oden MD [address] [place] [address] [place] [address] Kidney replaced by transplant (Primary Dx); Personal history of immunosuppression therapy; Stage 3b chronic kidney disease (HCC); Hypertension; Type 2 diabetes mellitus with diabetic chronic kidney disease (HCC) documented as of this encounter Visit Diagnoses Not on filedocumented in this encounter Care Teams Chemical Technician Relationship Specialty Start Date End Date Jonatan Anthony MD [address] [place], [place] PCP - General Internal Medicine 04/29/22 documented as of this encounter
--- OUTSIDE RECORDS SUMMARY | 2025-04-10 09:48 | XMS_ITS | Encounter Summary ---
Author Organization [facility], Address [address] [place] [address] Phone Care Team Providers Care Trade Show Specialist Name Role Phone Jonatan Anthony MD Primary Care Provider [phone] Reason for Visit * Reason Comments Med Refill Encounter Details Date Type Department Care Team (Late st Contact Info) Description 06/27/2023 Refill [facility] [address] [place] [address] Christopher Caicedo PA Social History [...] Office Visit [facility] [address] [place] [address] Tyrell Oden MD [address] [place] [address] [place] [address] Kidney replaced by transplant (Primary Dx); Personal history of immunosuppression therapy; Stage 3b chronic kidney disease (HCC); Hypertension; Type 2 diabetes mellitus with diabetic chronic kidney disease (HCC) documented as of this encounter Visit Diagnoses Not on filedocumented in this encounter Care Teams Trade Show Specialist Relationship Specialty Start Date End Date Jonatan Anthony MD [facility] [address] [place] PCP - General Internal Medicine 04/29/22 documented as of this encounter
--- OUTSIDE RECORDS SUMMARY | 2025-04-10 09:48 | XMS_ITS | Encounter Summary ---
Author Organization [facility] [place], Address [address] [place] [address] Phone Care Team Providers Care Program Aide Group Work Name Role Phone Jonatan Anthony MD Primary Care Provider [phone] Reason for Visit * Reason Comments Med Refill Encounter Details Date Type Department Care Team (Late Contact Info) Description 06/21/2023 [facility]ill [facility] [address] [place] [address] Tyrell Oden MD [address] [place] [address] [place] [address] Social History Tobacco Use Types [...] Office Visit [facility] [address] [place] [address] Tyrell Oden MD [address] [place] [address] [place] [address] Kidney replaced by transplant (Primary Dx); Personal history of immunosuppression therapy; Stage 3b chronic kidney disease (HCC); Hypertension; Type 2 diabetes mellitus with diabetic chronic kidney disease (HCC) documented as of this encounter Visit Diagnoses Not on filedocumented in this encounter Care Teams Program Aide Group Work Relationship Specialty Start Date End Date Jonatan Anthony MD [address] [place], [place] PCP - General Internal Medicine 04/29/22 documented as of this encounter
--- OUTSIDE RECORDS SUMMARY | 2025-04-10 09:48 | XMS_ITS | Encounter Summary ---
Author Organization [facility] Address [address] [place] [address] Phone Care Team Providers Care Layer Off Name Role Phone Jonatan Anthony MD Primary Care Provider Encounter Details Date Type Department Care Team (Late st Contact Info) Description 06/13/2023 Documentation Only [facility] [address] [place] [address] Christopher Caicedo PA Social History [...] Visit [facility] [place] [address] [place] [address] Tyrell Oden MD [address] [place] [address] [place] [address] Kidney replaced by transplant (Primary Dx); Personal history of immunosuppression therapy; Stage 3b chronic kidney disease (HCC); Hypertension; Type 2 diabetes mellitus with diabetic chronic kidney disease (HCC) documented as of this encounter Visit Diagnoses Not on filedocumented in this encounter Care Teams Layer Off Relationship Specialty Start Date End Date Jonatan Anthony MD [facility] [place] [address] [place] PCP - General Internal Medicine 04/29/22 documented as of this encounter
--- OUTSIDE RECORDS SUMMARY | 2025-04-10 09:48 | XMS_ITS | Encounter Summary ---
Author Organization [facility] [place], Address [address] [place] [address] Phone Care Team Providers Care Analysis Or Research Safety Inspector Name Role Phone Jonatan Anthony MD Primary Care Provider Reason for Visit * Reason Comments Med Refill Encounter Details Date Type Department Care Team (Late Contact Info) Description 12/26/2022 [facility]ill [facility] [address] [place] [address] Tyrell Oden MD [address] [place] [address] [place] [address] Social History Tobacco Use Types [...] Office Visit [facility] [address] [place] [address] Tyrell Oden MD [address] [place] [address] [place] [address] Kidney replaced by transplant (Primary Dx); Personal history of immunosuppression therapy; Stage 3b chronic kidney disease (HCC); Hypertension; Type 2 diabetes mellitus with diabetic chronic kidney disease (HCC) documented as of this encounter Visit Diagnoses Not on filedocumented in this encounter Care Teams Analysis Or Research Safety Inspector Relationship Specialty Start Date End Date Jonatan Anthony MD [address] [place], [place] PCP - General Internal Medicine 04/29/22 documented as of this encounter
--- OUTSIDE RECORDS SUMMARY | 2025-04-10 09:48 | XMS_ITS | Encounter Summary ---
Author Organization [facility] Address [address] [place] [address] Phone Care Team Providers Care Service Learning Coordinator Name Role Phone Jonatan Anthony MD Primary Care Provider [phone] Encounter Details Date Type Department Care Team (Late st Contact Info) Description 06/13/2023 Documentation Only [facility] [address] [place] [address] Christopher Caicedo PA Social History [...] Visit [facility] [place] [address] [place] [address] Tyrell Oden MD [address] [place] [address] [place] [address] Kidney replaced by transplant (Primary Dx); Personal history of immunosuppression therapy; Stage 3b chronic kidney disease (HCC); Hypertension; Type 2 diabetes mellitus with diabetic chronic kidney disease (HCC) documented as of this encounter Visit Diagnoses Not on filedocumented in this encounter Care Teams Service Learning Coordinator Relationship Specialty Start Date End Date Jonatan Anthony MD [facility] [address] [place] PCP - General Internal Medicine 04/29/22 documented as of this encounter
--- OUTSIDE RECORDS SUMMARY | 2025-04-10 09:48 | XMS_ITS ---
Author Organization [facility] [place] Address [address] [place] [address] Care Team Providers Care Commuter Train Operator Name Role Phone Jonatan Anthony Primary Care Provider Leticia Matthews [phone] REASON FOR VISIT Last A1C Encounters Encounter Location Date Provider Diagnosis [facility] [address] [place] [address] 01/02/2025 Leticia Dwyer Plan Of Treatment Next Appt Details Provider Name:Leticia Dwyer , 07/17/2025 09:15:00 AM, [address] [place], [address], Progress Notes * RAMONE, ManinderDOB: [birth year] (74 yo M)Acc No.[id number]:01/02/2025 Patient:?Maninder QIU :1950???Age:74 Y???Sex:Male Address:[address] [place] [address], [address] * true * Date:? Generated for Printi ng/Faantoling/eTransmitting on:?04/10/2025 09:30 AM EDT
--- OUTSIDE RECORDS SUMMARY | 2025-04-10 09:48 | XMS_ITS | Clinical Summary ---
Author Organization [facility] Address [address] [place] [address] Care Team Providers Care Medical Translator Name Role Phone Pcp, No Primary Care Provider Unavailabl e Social History Tobacco Use Types Packs/Day Years Used Date Smoking Tobacco: Never Assessed Sex and Gender Information Value Date Recorded Sex Assigned at Male 05/10/2023 2:52 PM EDT Legal Sex Male 12:26 PM EDT Gender Identity Male 05/10/2023 2:52 PM EDT Sexual Orientation Heterosexual (straight) 05/10 2:52 PM EDT Plan of Treatment Health Maintenance Due Date Last Done Comments Hepatitis C Virus Screening 1950 DTaP/Tdap/Td Vaccines (1 - Tdap) 1969 Colonoscopy 1995 Pneumococcal Vaccines 50+ (1 of 1 - PCV) 2000 Zoster (Shingles) Vaccine (1 of 2) 2000 COVID-19 Vaccine (4 - 2023- season) 2024 01/21/2022, 02/12/2021, 12/31/2020 RSV Vaccine 60 years and older and Patients (1 - 1-dose 75+ series) 2025 Influenza Vaccine 06/20/2025 09/04/2014, , 01/23/2014, Additional history exists Hepatitis B Vaccines Aged Out No long er eligible based on patient's age to complete this topic Insurance MEDICARE PART A & B Care Teams Medical Translator Relationship Specialty Start Date End Date Pcp, No [address] [place] [address] PCP - General 03/28/22
--- OUTSIDE RECORDS SUMMARY | 2025-04-10 09:48 | XMS_ITS ---
Author Organization [facility] [place] Address [address] [facility] [place] [address] Care Team Providers Care Safety Technician Name Role Phone Jonatan Anthony Primary Care Provider Leticia Matthews Unavailable [phone] Allergies Allergen (clinical drug ingredient) Drug/Non Drug Allergy documented on EMR Reaction Allergy Type Onset Date Status Penicillin Unknown Drug Allergy Active REASON FOR VISIT At Risk Footcare, Foot pain, Heel pain Medications Medication SIG (Take, Route, Frequency, Duration) Notes Start Date End Date Status Stool Softener 50mg 1x day, 100mg 2x day Active Night Splint AFO - L1930 1 wear when at rest for 30 days Active Multivitamin Active Magnesium 400 MG as directed Orally Not-Taking glipiZIDE 5 MG 1 tablet 30 minutes before breakfast Orally Once a day for 30 day(s) Not-Taking Extra Depth Orthopedic Shoes (1 Pair) with Customized Heat Molded Multidensity Innersoles (3 Pair) as directed Dx: NIDDM/Polyneuropathy (E11.42), Hammertoe Foot Deformity (M20.41,M20.42), Preulcerative Skin Lesion(s) (L85.1 12/11/2023 Active Ammonium Lactate 12 % APPLY TO AFFECTED AREA TWICE A DAY TO DRY AREAS OF SKIN ON FEET for 30 Active Extra Depth Orthopedic Shoes (1 Pair) with Customized Heat Molded Multidensity Innersoles (3 Pair) as directed Dx: NIDDM/Polyneuropathy (E11.42), Hammertoe Foot Deformity (M20.41,M20.42), Preulcerative Skin Lesion(s) (L85.1 06/13/2024 Active Tamsulosin HCl 0.4 MG Oral for 30 Days Active Spironolactone 25 MG TAKE 1 TABLET BY MOUTH 1 TIME EACH DAY. Oral for 90 Active Gabapentin 300 MG TAKE 1 CAPSULE BY MOUTH EVERY NIGHT FOR NEUROPATHY AND INSOMNIA. Oral for 30 Active Extra Depth Orthopedic Shoes (1 Pair) with Customized Heat Molded Multidensity Innersoles (3 Pair) as directed Dx: NIDDM/Polyneuropathy (E11.42), Hammertoe Foot Deformity (M20.41,M20.42), Preulcerative Skin Lesion(s) (L85.1 Active Cinacalcet HCl 30 MG TAKE ONE TABLET BY MOUTH ONCE DAILY Oral for 30 Active Mycophenolate Sodium 360 MG Oral for 30 Z940,Unavail able Active Jardiance 10 MG TAKE 1 TAB BY MOUTH TIME EACH DAY IN THE MORNING Oral for 90 Active Doxazosin Mesylate 4 MG 1 tablet Orally Once a day for 30 day(s) Active Carvedilol 25 MG 1 tablet with food Orally Twice a day for 30 day(s) Active NIFEdipine ER 60 MG 1 tablet on an empty stomach Orally Once a day for 30 day(s) Active Envarsus XR 1 MG as directed Orally Active Entecavir 0.5 MG 1 tablet on an empty stomach Orally Once a day for 10 day(s) Active Lasix 20 MG 1 tablet [...] Once a day for 30 day(s) Active Social History Tobacco Use: Social History Observation Description Date Details (start date - stop date) Never Smoker NA - NA Tobacco use other than smoking: Question Answer Notes Are you an other tobacco user? No Tobacco Control (Standard) Question Answer Notes Tobacco use: Nonsmoker Vital Signs Height 5ft6in in 03/31/2025 Weight 176 lbs 03/31/2025 BMI 28.4 kg/m2 03/31/2025 Blood pressure systolic 160 mm Hg 03/31/20 25 Blood pressure diastolic 60 mm Hg 025 Procedures Procedure Date Ordered Date Performed Result Body Sit e 33948-NEWERRJ NAIL, 6 OR MORE 03/31/2025 N/A 60106-KZPX SKIN LESIONS, 2 TO 4 03/31/2025 N/A Encounters Encounter Location Date Provider Diagnosis [facility] [address] [place] [address] 03/31/2025 Leticia Black Type 2 diabetes mellitus with diabetic polyneuropathy E11.42 ; Achilles tendinitis of left lower extremity M76.62 ; Type 2 diabetes mellitus with diabetic chronic kidney disease E11.22 ; Tinea unguium B35.1 ; Pain in left foot M79.672 ; Pain in left ankle and joints of left foot M25.572 ; Metatarsalgia of left foot M77.42 ; Metatarsalgia, right foot M77.41 ; Pain of left heel M79.672 and Short Achilles tendon (acquired), left ankle M67.02 Assessments Encounter Date Diagnosis (ICD Code) Assessment Notes Treatment Notes Treatment Clinical Notes Section Notes 03/31/2025 Type 2 diabetes mellitus with diabetic polyneuropathy (ICD-10 - E11.42) 03/31/2025 Achilles tendinitis of left lower extremity (ICD-10 - M76.62) 03/31/2025 Type 2 diabetes mellitus with diabetic chronic kidney disease (ICD-10 - E11.22) 03/31/2025 Tinea unguium (ICD-10 - B35.1) 03/31/2025 Pain in left foot (ICD-10 - M79.672) 03/31/2025 Pain in left ankle and joints of left foot (ICD-10 - M25.572) 03/31/2025 Metatarsalgia of left foot (ICD-10 - M77.42) 03/31/2025 Metatarsalgia, right foot (ICD-10 - M77.41) 03/31/2025 Pain of left heel (ICD-10 - M79.672) 03/31/2025 Short Achilles tendon (acquired), left ankle (ICD-10 - M67.02) Plan Of Treatment Pending Test Test Name Order Date 84967-VRKVEWD NAIL, 6 OR MORE 03/31/2025 77030-ODHR SKIN LESIONS, 2 TO 4 05/12/20 25 Next Appt Details Follow Up: prn, Reason: Provider Name:Leticia Jose Dwyer , 07/17/2025 09:15:00 AM, [address] [place] [address], [address], Procedure Notes * Category Sub-Category Detail [...] use of a nail nipper and/or dremel-type diamond grinder, to a more viable healthy nail plate [...] to maintain effectiveness in symptomatic relief - 19594 Keratoma Treatment Parring or Cutting o f [...] instrumentation by the physician of record - 04036 Progress Notes * Maninder PACKDOB: [birth year] (74 yo M)Acc No.[id number]:03/31/2025 Progress Note Patient:?Maninder PACK Provider:?Leticia Dwyer DPM :1950???Age:74 Y???Sex:Male Sean e:03/31/2025 Address:[address] [place] [address], [place] Pcp:Jonatan Anthony Subjective: * Chief Complaints: * ???At Risk FootcareFoot pain Heel pain * HPI: ???At Risk footcare:?Pt States Last PCP Visit:?Date?02/06/2025 ???Foot Pain:?Location:??Bottom, Forefoot, B/L.?Duration:?, several months.?Onset:?overuse.?Course:?resolved.?Treatments:?rest/alter normal daily activity?,inserts.?Heel pain:?Location:?Back of heel, LEFT.?Duration:?, several months.?Course:?improved, at approximately 80? percent.?Aggravated:?standing, walking, walking first thing in the morning/after rest.?Treatments:?rest/alter normal daily activity,inserts, AFO-nightsplint, stretching.? * ROS:?General/Constitutional:?Nausea?denies.?Vomiting?denies.?Hunger Thirst?denies.?Loss appetite?denies.?Chills?denies.?Fatigue?denies.?Fever?denies.?Night Sweats?denies.?Unexplained weight loss?denies.?Unexplained [...] yes, walking. ?Marital status: . 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 * Medications:?TakingMultivita min Stool Softener , Notes [...] FEET Tamsulosin HCl 0.4 MG Capsule Oral Night Splint AFO - L1930 1 wear when at rest Taking Multivitamin Taking Stool Softener , Notes [...] Taking Tamsulosin HCl 0.4 MG Capsule Oral Taking Night Splint AFO - L1930 1 wear when at rest Not-Taking/PRNglipiZIDE 5 MG Tablet 1 tablet 30 [...] Allergies:?Penicillinyes[All ergies Verified] Objective: * Vitals:?Ht: 5ft6in, Wt:176, BMI:28.4, Shoe size: 8.5, BP:160/60mm Hg, BS: not taken, Ht-cm: 167.64 cm, Wt-k.83 kg. * ???Past Orders: ???Lab:HEMOGLOBIN A1C (GLYCO HEMOGLOBIN) (Order Date - 11/20/2024) (Collection Date & Time - 11/20/2024 08:15 AM) ? Value Reference Range ?HEMOGLOBIN A1C % (HH) 5.7 * Examination: ???Ophthalmology Referral: ?DIABETES EYE EXAM?Procedure Performed:?Yes ?Date of Exam Performed?04/20/2024 ?Findings of Diabetic Eye Exam:?no retinopathy?General Examination: ?GENERAL APPEARANCE:?Reveals a pleasant, alert, well nourished, well- developed, well hydrated individual, who demonstrates proper attention to hygiene/body habitus, and is in no acute distress, Pt serves as own historian for office visit today.?ORIENTED:?person, place, and time.?Vascular: ?DP PULSES (B):?2/4, B/L.?PT PULSES (B):?2/4, B/L.?Neurological: [...] incompl-reducible to push-up test, no over, nor underlapping,?.?MPJ PATHOLOGY:?Pain, swelling, and inflammation to plantar MPJ(s), B/L , No MPJ pain with ROM , [ - ] Ecchymosis 2-5 b/l, Approximately 100 percent LESS.?FOOTWEAR EVALUATION:?good condition.?Dermatologic: ?SKIN FINDINGS:?Skin exam reveals Keratotic lesion(s) [...] posterior and posterior/superior heel present, LEFT foot,Neg [place], Approximately 80? percent LESS.? Assessment: * Assessment: 1.?Type 2 diabetes mellitus with diabetic polyneuropathy - E11.42???2.?Achilles tendinitis of left lower extremity - M76.62 (Primary)???Specify :Response to treatment - Improvement Acute problem, Stable???3.?Type 2 diabetes mellitus with diabetic chronic kidney disease - E11.22???4.?Tinea unguium - B35.1???5.?Pain in left foot - M79.672???6.?Pain in left ankle and joints of left foot - M25.572???7.?Metatarsalgia of left foot - M77.42???Specify :Resolved???8.?Metatarsalgia, right foot - M77.41???Specify :Resolved???9.?Pain of left heel - M79.672???10.?Short Achilles tendon (acquired), 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 Plan: * Treatment: 2.?Tinea unguium?Procedure: 73466-DCBZAGA NAIL, 6 OR MORE * Procedures:?Debride Nail [...] of a nail nipper and/or dremel- type diamond grinder, to a more viable healthy nail plate [...] to maintain effectiveness in symptomatic relief - 28628.?Keratoma Treatment:?Parring or Cutting of Benign Hyperkeratotic Lesion(s)?(-56) [...] instrumentation by the physician of record - 07180.? * Procedure Codes:?78712 DEBRI DE NAIL, 6 OR MORE, Modifiers: XS 74781 TRIM SKIN LESIONS, 2 TO 4, Modifiers: XS 3044F HG A1C LEVEL LT 7.0% * Preventive Medicine:? ??Counseling:?Discussion:?-13: Office or other [...] encouraged the patient to call the office.?Heel pain:?Discussed other tx options for the patients condition, Given recent successful results to treatment, the patient wishes to continue with the present plan for their condition.?Metatarsalgea:?Given recent successful results to treatment, the patient wishes to continue with the present plan for their condition. He will continue with appropriate footwear and inserts.? ??Screening/Special Tests:?Fall Risk?Screening:?No falls in the past year ?FALLS: Screening for Future Fall Risk?Have you had any falls with injury in the past year??No * Follow Up:?prn * Images: * Sign off status: Completed true * Provider:?Leticia Dwyer DPM Date:?2024 Generated for Sven montes/Swati/eTransmitting on:?04/10/2025 09:30 AM EDT History and Physical Notes * HPI (History of Present Illness) Category Sub-Category Detail Notes Category Not es Heel pain Duration: , several months Location: Back of heel, LEFT Aggravated: standing, walking, w alking first thing in the morning/after rest Course: improved, at approxi mately 80 percent Treatments: rest/alter normal da eliezer activity,inserts, AFO-nightsplint, stretching At Risk footcare Pt States Last PCP Visit: Date: 5 Foot Pain Location: Bottom, Forefoot, B/L Duration: , several months Onset: overuse Course: resolved Treatments: rest/alter normal da eliezer activity ,inserts Examination Category Sub-Category Detail Notes Category Not [...] Ankle join t dorsiflexion ROM, knee extended FOOTWEAR EVALUATION: good condition DIGITAL DEFORMITIES: Digital contracture , PIPJ, 2-5 B/L, incompl-reducible to push-up test, no over, nor underlapping, MPJ PATHOLOGY: Pain, swelling, and inflammation to plantar MPJ(s), B/L , No MPJ pain with ROM , [ - ] Ecchymosis 2-5 b/l, Approximately 100 percent LESS General Examination GENERAL APPEARANCE: Reveals a pleasant, alert, well nourished, well-developed, well hydrated individual, who demonstrates proper attention to hygiene/body habitus, and is in no acute distress, Pt serves as own historian for office visit today ORIENTED: person, place, and t chuck Ophthalmology Referral DIABETES EYE EXAM Procedure Perform ed:: Yes ?Date of Exam Performed: 04/20/2024 Findings of Diabetic Eye Exam:: no retin [...] and posterior/superior heel present, LEFT foot, Neg [place], Approximately 80 percent LESS
--- OUTSIDE RECORDS SUMMARY | 2025-04-10 09:48 | XMS_ITS | Encounter Summary ---
Author Organization [facility] [place], Address [address] [place] [address] Phone Care Team Providers Care Birdcage Assembler Name Role Phone Jonatan Anthony MD Primary Care Provider [phone] Reason for Visit * Reason Comments Med Refill Encounter Details Date Type Department Care Team (Late Contact Info) Description 04/23/2023 Refill [facility] [address] [place] [address] Tyrell Oden MD [address] [place] [address] [place] [address] Social History Tobacco Use Types [...] Visit [facility] [address] [place] [address] Tyrell Oden MD [address] [place] [address] [place] [address] Kidney replaced by transplant (Primary Dx); Personal history of immunosuppression therapy; Stage 3b chronic kidney disease (HCC); Hypertension; Type 2 diabetes mellitus with diabetic chronic kidney disease (HCC) documented as of this encounter Visit Diagnoses Not on filedocumented in this encounter Care Teams Birdcage Assembler Relationship Specialty Start Date End Date Jonatan Anthony MD [address] [place], [place] PCP - General Internal Medicine 04/29/22 documented as of this encounter
--- OUTSIDE RECORDS SUMMARY | 2025-04-10 09:48 | XMS_ITS | Encounter Summary ---
Author Organization [facility] Address [address] [place] [address] Phone Care Team Providers Care Software Engineer Developer Name Role Phone Jonatan Anthony MD Primary Care Provider [phone] Encounter Details Date Type Department Care Team (Late st Contact Info) Description 02/09/2023 Documentation Only [facility] [address] [place] [address] Christopher Caicedo PA Social History [...] Visit [facility] [place] [address] [place] [address] Tyrell Oden MD [address] [place] [address] [place] [address] Kidney replaced by transplant (Primary Dx); Personal history of immunosuppression therapy; Stage 3b chronic kidney disease (HCC); Hypertension; Type 2 diabetes mellitus with diabetic chronic kidney disease (HCC) documented as of this encounter Visit Diagnoses Not on filedocumented in this encounter Care Teams Software Engineer Developer Relationship Specialty Start Date End Date Jonatan Anthony MD [facility] [place] [address] [place] PCP - General Internal Medicine 04/29/22 documented as of this encounter
--- OUTSIDE RECORDS SUMMARY | 2025-04-10 09:48 | XMS_ITS | Encounter Summary ---
Author Organization [facility] [place], Address [address] [place] [address] Phone Care Team Providers Care Gizzard Peeler Name Role Phone Jonatan Anthony MD Primary Care Provider [phone] Reason for Visit * Reason Comments Med Refill Encounter Details Date Type Department Care Team (Late Contact Info) Description 03/01/2022 [facility]ill [facility] [address] [place] [address] Tyrell Oden MD [address] [place] [address] [place] [address] Social History Tobacco Use Types [...] Office Visit [facility] [address] [place] [address] Tyrell Oden MD [address] [place] [address] [place] [address] Kidney replaced by transplant (Primary Dx); Personal history of immunosuppression therapy; Stage 3b chronic kidney disease (HCC); Hypertension; Type 2 diabetes mellitus with diabetic chronic kidney disease (HCC) documented as of this encounter Visit Diagnoses Not on filedocumented in this encounter Care Teams Gizzard Peeler Relationship Specialty Start Date End Date Jonatan Anthony MD [address] [place], [place] PCP - General Internal Medicine 04/29/22 documented as of this encounter
--- OUTSIDE RECORDS SUMMARY | 2025-04-10 09:48 | XMS_ITS | Patient Health Record ---
Author Organization [facility] Brad latoya KangKaz Address [address] [facility] [place] [address] Care Team Providers Care Hog Scalder Name Role Phone Jonatan Anthony Primary Care Provider Leticia Matthews Unavailable [phone] Allergies Allergen (clinical drug ingredient) Drug/Non Drug Allergy documented on EMR Reaction Allergy Type Onset Date Status Penicillin Unknown Drug Allergy Active Results Component Value Reference Range Notes HEMOGLOBIN A1C (GLYCOHEMOGLO BIN) Reviewed date:01/02/2025 01:02:56 PM Interpretation: Performing Lab: Notes/Report: HEMOGLOBIN A1C % (HH) 5.4 HEMOGLOBIN A1C (GLYCOHEMOGLO BIN) Reviewed date:03/31/2025 08:16:22 AM Interpretation: Performing Lab: Notes/Report: HEMOGLOBIN A1C % (HH) 5.7 Reason For Referral No Information Medications Medication SIG (Take, Route, Frequency, Duration) Notes Start Date End Date Status Doxazosin Mesylate 4 MG 1 tablet Orally [...] Once a day for 10 day(s) Active Gabapentin 300 MG TAKE 1 CAPSULE [...] MG Oral for 30 Z940,Unavail able Active Spironolactone 25 MG TAKE 1 TABLET BY MOUTH 1 TIME EACH DAY. Oral for 90 Active Jardiance 10 MG TAKE 1 TAB BY MOUTH TIME EACH DAY IN THE MORNING Oral for 90 Active Extra Depth Orthopedic [...] (M20.41,M20.42), Preulcerative Skin Lesion(s) (L85.1 06/13/2024 Active Stool Softener 50mg 1x day, 100mg 2x day Active Night Splint AFO - L1930 1 wear when at rest for 30 days Active Multivitamin Active Tamsulosin HCl 0.4 MG Oral for 30 Days Active Lasix 20 MG 1 tablet Orally Once a day for 30 day(s) Active Magnesium 400 MG as directed Orally Not-Taking Sensipar 30 MG 1 tablet with food or after a meal Orally Once a day for 30 day(s) Active glipiZIDE 5 MG 1 tablet 30 minutes before breakfast Orally Once a day for 30 day(s) Not-Taking Rosuvastatin Calcium 5 MG 1 tablet Orally [...] Problem Status W/U Status Risk Notes Problem Chronic kidney disease due to type 2 diabetes mellitus (683199852288) 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.22) Active confirmed Problem Polyneuropathy due to type 2 diabetes mellitus (244188928) Type 2 diabetes mellitus with diabetic polyneuropathy (E11.42) Active confirmed Vital Signs Blood pressure diastolic 60 mm Hg 03/31/2025 Height 5ft6in in 03/31/2025 Blood pressure systolic 160 mm Hg 03/31/2025 Weight 176 lbs 03/31/2025 BMI 28.4 kg/m2 03/31/2025 Procedures Procedure Date Ordered Date Performed Result Body Sit e 57453-AOBJBGG NAIL, 6 OR MORE 06/13/2024 N/A 87260-YWUI SKIN LESIONS, 2 TO 4 06/13/2024 N/A 26311-JBTJIIA NAIL, 6 OR MORE 09/19/2024 N/A 27373-NVXE SKIN LESIONS, 2 TO 4 09/19/2024 N/A 11242-ODWXOBJ NAIL, 6 OR MORE 12/26/2024 N/A 49214-HJOY SKIN LESIONS, 2 TO 4 12/26/2024 N/A 96839-FBBOLIK NAIL, 6 OR MORE 03/31/2025 N/A 39087-TAMB SKIN LESIONS, 2 TO 4 03/31/2025 N/A Encounters Encounter Location Date Provider [facility] [address] 06/13/2024 Leticia Black Type 2 diabetes mellitus with diabetic polyneuropathy E11.42 ; Type 2 diabetes mellitus with diabetic chronic kidney disease E11.22 ; Tinea unguium B35.1 ; Other hammer toe(s) (acquired), left foot M20.42 and Other hammer toe(s) (acquired), right foot M20.[address] [facility] [address] 09/19/2024 Leticia Black Type 2 diabetes mellitus [...] foot M77.51 and Metatarsalgia, right foot M77.[address] [address] 12/26/2024 Leticia Black Type 2 diabetes mellitus [...] Short Achilles tendon (acquired), left ankle M67.[address] [address] 03/31/2025 Leticia Black Type 2 diabetes mellitus [...] Short Achilles tendon (acquired), left ankle M67.02 [facility] [address] [address] 08/19/2024 Leticia Dwyer Xerosis cutis L85.3 [facility] [address] 01/02/2025 Leticia Dwyer Assessments Encounter Date Diagnosis (ICD Code) Assessment Notes Treatment Notes Treatment Clinical Notes Section Notes 06/13/2024 Type 2 diabetes mellitus with diabetic polyneuropathy (ICD-10 - E11.42) 08/19/2024 Xerosis cutis (ICD-10 - L85.3) 09/19/2024 Type 2 diabetes mellitus with diabetic chronic kidney disease (ICD-10 - E11.22) 09/19/2024 Type 2 diabetes mellitus with diabetic polyneuropathy (ICD-10 - E11.42) 12/26/2024 Type 2 diabetes mellitus with diabetic polyneuropathy (ICD-10 - E11.42) 03/31/2025 Type 2 diabetes mellitus with diabetic polyneuropathy (ICD-10 - E11.42) 03/31/2025 Achilles tendinitis of left lower extremity (ICD-10 - M76.62) 03/31/2025 Type 2 diabetes mellitus with diabetic chronic kidney disease (ICD-10 - E11.22) 12/26/2024 Type 2 diabetes mellitus with diabetic chronic kidney disease (ICD-10 - E11.22) 06/13/2024 Type 2 diabetes mellitus with diabetic chronic kidney disease (ICD-10 - E11.22) 09/19/2024 Tinea unguium (ICD-10 - B35.1) 06/13/2024 Tinea unguium (ICD-10 - B35.1) 09/19/2024 Pain in left foot (ICD-10 - M79.672) 12/26/2024 Tinea unguium (ICD-10 - B35.1) 03/31/2025 Tinea unguium (ICD-10 - B35.1) 03/31/2025 Pain in left foot (ICD-10 - M79.672) 12/26/2024 Pain in left foot (ICD-10 - M79.672) 09/19/2024 Pain in left ankle and joints of left foot (ICD-10 - M25.572) 06/13/2024 Other hammer toe(s) (acquired), left foot (ICD-10 - M20.42) 09/19/2024 Bursitis of intermetatarsal bursa of left foot (ICD-10 - M77.52) 03/31/2025 Pain in left ankle and joints of left foot (ICD-10 - M25.572) 12/26/2024 Pain in left ankle and joints of left foot (ICD-10 - M25.572) 12/26/2024 Bursitis of intermetatarsal bursa of left foot (ICD-10 - M77.52) 03/31/2025 Metatarsalgia of left foot (ICD-10 - M77.42) 09/19/2024 Metatarsalgia of left foot (ICD-10 - M77.42) 06/13/2024 Other hammer toe(s) (acquired), right foot (ICD-10 - M20.41) Patient Educated with: DIABETIC FOOT CARE INSTRUCTIONS. pdf (DIABETIC FOOT CARE INSTRUCTIONS. pdf) 09/19/2024 Pain in right foot (ICD-10 - M79.671) 12/26/2024 Metatarsalgia of left foot (ICD-10 - M77.42) 03/31/2025 Metatarsalgia, right foot (ICD-10 - M77.41) 12/26/2024 Pain in right foot (ICD-10 - M79.671) 03/31/2025 Pain of left heel (ICD-10 - M79.672) 09/19/2024 Pain in right ankle and joints of right foot (ICD-10 - M25.571) 12/26/2024 Pain in right ankle and joints of right foot (ICD-10 - M25.571) 09/19/2024 Bursitis of intermetatarsal bursa of right foot (ICD-10 - M77.51) 03/31/2025 Short Achilles tendon (acquired), left ankle (ICD-10 - M67.02) 12/26/2024 Bursitis of intermetatarsal bursa of right foot (ICD-10 - M77.51) 09/19/2024 Metatarsalgia, right foot (ICD-10 - M77.41) 12/26/2024 Metatarsalgia, right foot (ICD-10 - M77.41) 12/26/2024 Pain of left heel (ICD-10 - M79.672) 12/26/2024 Achilles tendinitis of left lower extremity (ICD-10 - M76.62) Patient Educated with: HEEL CORD STRETCHES.pdf (HEEL CORD STRETCHES.pdf ) Patient Educated with: RICE THERAPY.pdf (RICE THERAPY.pdf) 12/26/2024 Short Achilles tendon (acquired), left ankle (ICD-10 - M67.02) 09/19/2024 Other Plan Of Treatment Pending Test Test Name Order Date 08185-PBQWZPD NAIL, 6 OR MORE 09/01/2022 70109-GZZLQBG NAIL, 6 OR MORE 12/08/2022 73355-KCAWEST NAIL, 6 OR MORE 03/09/2023 44372-SPFDTHK NAIL, 6 OR MORE 12/11/2023 42758-GSQUCWB NAIL, 6 OR MORE 03/14/2024 68171-QOWSAOM NAIL, 6 OR MORE 06/13/2024 02342-DKYYHYN NAIL, 6 OR MORE 09/19/2024 12312-NJDYTTZ NAIL, 6 OR MORE 12/26/2024 52780-CFPXLCE NAIL, 6 OR MORE 03/31/2025 62828-Ioamspah Plate 03/09/2023 60773-Wjcqnnjb Plate 03/14/2024 24642-SWQP SKIN LESIONS, 2 TO 4 06/13/20 24 13966-BACY SKIN LESIONS, 2 TO 4 12/26/19 69838-FVRQ SKIN LESIONS, 2 TO 4 09/19/20 24 48654-ROUA SKIN LESIONS, 2 TO 4 03/14/20 24 44562-SFYJ SKIN LESIONS, 2 TO 4 12/11/19 24 45058-YJFR SKIN LESIONS, 2 TO 4 03/09/20 23 97775-RCCW SKIN LESIONS, 2 TO 4 12/08/19 23 58408-JIBJ SKIN LESIONS, 2 TO 4 03/31/20 Next Appt Details Provider Name:Leticia Garcia Reymundo , 07/17/2025 09:15:00 AM, [address] [place] [address], [place], [address], Insurance Providers Payer Name Payer Address Payer Phone Subscriber Number Group Number Insured Name Patient Relationship to Insured Coverage Start Date Coverage End Date Medicare National [facility] [email or web address] [address] [place] [phone] [id number] RamoneManinder mcnamara Self - patient is the insured [employer] [address] [place] [address] [phone] [id number] 1 Ramone Maninder Self - patient is the insured Medical (General) History Medical History History ICD Code Alzheimers disease Gall bladder problems Glaucoma Gout Hepatitis C High blood pressure Kidney disease Stroke Sleep apnea Neuropathy Other hammer toe(s) (acquired), right fo ot M20.41 Other hammer toe(s) (acquired), left wilton t M20.42 Surgical History Surgery Date(Month/Year) kidney transplant 09/30/2021 gall bladder
--- OUTSIDE RECORDS SUMMARY | 2025-04-10 09:48 | XMS_ITS | Encounter Summary ---
Author Organization [facility] Address [address] [place] [address] Phone Care Team Providers Care Data Integrity Consultant Name Role Phone Jonatan Anthony MD Primary Care Provider [phone] Reason for Visit * Reason Comments Med Refill Encounter Details Date Type Department Care Team (Late st Contact Info) Description 08/26/2023 Refill [facility] [address] [place] [address] Tyrell Oden MD [address] [place] [address] [place] [address] Social History Tobacco Use Types [...] Visit [facility] [address] [place] [address] Tyrell Oden MD [address] [place] [address] [place] [address] Kidney replaced by transplant (Primary Dx); Personal history of immunosuppression therapy; Stage 3b chronic kidney disease (HCC); Hypertension; Type 2 diabetes mellitus with diabetic chronic kidney disease (HCC) documented as of this encounter Visit Diagnoses Not on filedocumented in this encounter Care Teams Data Integrity Consultant Relationship Specialty Start Date End Date Jonatan Anthony MD [address] [place], [place] PCP - General Internal Medicine 04/29/22 documented as of this encounter
--- OUTSIDE RECORDS SUMMARY | 2025-04-10 09:48 | XMS_ITS | Encounter Summary ---
Author Organization [facility] Address [address] [place] [address] Phone Care Team Providers Care Pocketbook Maker Name Role Phone Jonatan Anthony MD Primary Care Provider [phone] Encounter Details Date Type Department Care Team (Late st Contact Info) Description 09/21/2023 Documentation Only [facility] [address] [place] [address] Tyrell Oden MD [address] [place] [address] [place] [address] Social History Tobacco Use [...] Visit [facility] [address] [address] Tyrell Oden MD [address] [place] [address] [place] [address] Kidney replaced by transplant (Primary Dx); Personal history of immunosuppression therapy; Stage 3b chronic kidney disease (HCC); Hypertension; Type 2 diabetes mellitus with diabetic chronic kidney disease (HCC) documented as of this encounter Visit Diagnoses Not on filedocumented in this encounter Care Teams Pocketbook Maker Relationship Specialty Start Date End Date Jonatan Anthony MD [address] [place], [place] PCP - General Internal Medicine 04/29/22 documented as of this encounter
--- OUTSIDE RECORDS SUMMARY | 2025-04-10 09:48 | XMS_ITS | Encounter Summary ---
Author Organization [facility], Address [address] [place] [address] Phone Care Team Providers Care Sybase Developer Name Role Phone Jonatan Anthony MD Primary Care Provider [phone] Reason for Visit * Reason Comments Med Refill Encounter Details Date Type Department Care Team (Late st Contact Info) Description 11/23/2023 Refill [facility] [address] [place] [address] Christopher Caicedo PA Long-term drug [...] Office Visit [facility] [address] [place] [address] Tyrell Oden MD [address] [place] [address] [place] [address] Kidney replaced by transplant (Primary Dx); Personal history of immunosuppression therapy; Stage 3b chronic kidney disease (HCC); Hypertension; Type 2 diabetes mellitus with diabetic chronic kidney disease (HCC) documented as of this encounter Visit Diagnoses Diagnosis Long-term drug therapy Kidney replaced by transplant- Primary Personal history of immunosuppression therapy Stage 3b chronic kidney disease (HCC) Hypertension Type 2 diabetes mellitus with diabetic chronic kidney disease (HCC) documented in this encounter Care Teams Sybase Developer Relationship Specialty Start Date End Date Jonatan Anthony MD [address] [place] PCP - General Internal Medicine 04/29/22 documented as of this encounter
--- OUTSIDE RECORDS SUMMARY | 2025-04-10 09:48 | XMS_ITS | Encounter Summary ---
Author Organization [facility] Address [address] [place] [address] Phone Care Team Providers Care Service Dog Trainer Name Role Phone Jonatan Anthony MD Primary Care Provider [phone] Encounter Details Date Type Department Care Team (Late st Contact Info) Description 08/26/2024 Documentation Only [facility] [address] [place] [address] [place], [place] [address] [place] [phone] Social History Tobacco Use Types Packs/Day Years [...] Visit [facility] [place] [address] [address] Tyrell Oden MD [address] [facility] [address] [place] [address] Kidney replaced by transplant (Primary Dx); Personal history of immunosuppression therapy; Stage 3b chronic kidney disease (HCC); Hypertension; Type 2 diabetes mellitus with diabetic chronic kidney disease (HCC) documented as of this encounter Visit Diagnoses Not on filedocumented in this encounter Care Teams Service Dog Trainer Relationship Specialty Start Date End Date Jonatan Anthony MD [address] [place], [place] PCP - General Internal Medicine 04/29/22 documented as of this encounter
--- OUTSIDE RECORDS SUMMARY | 2025-04-10 09:48 | XMS_ITS | Encounter Summary ---
Author Organization [facility] Address [address] [place] [address] Phone Care Team Providers Care Steward/Stewardess Lounge Name Role Phone Jonatan Anthony MD Primary Care Provider [phone] Encounter Details Date Type Department Care Team (Late st Contact Info) Description 08/26/2024 Documentation Only [facility] [address] [place] [address] [place], [place] [address] [place] [address] Social History Tobacco Use Types Packs/Day Years [...] Visit [facility] [place] [address] [place] [address] Tyrell Oden MD [address] [facility] [address] [place] [address] Kidney replaced by transplant (Primary Dx); Personal history of immunosuppression therapy; Stage 3b chronic kidney disease (HCC); Hypertension; Type 2 diabetes mellitus with diabetic chronic kidney disease (HCC) documented as of this encounter Visit Diagnoses Not on filedocumented in this encounter Care Teams Steward/Stewardess Lounge Relationship Specialty Start Date End Date Jonatan Anthony MD [address] [place], [place] PCP - General Internal Medicine 04/29/22 documented as of this encounter
--- OUTSIDE RECORDS SUMMARY | 2025-04-10 09:48 | XMS_ITS | Encounter Summary ---
Author Organization [facility] Address [address] [place] [address] Phone Care Team Providers Care Telegraph Installer Name Role Phone Jonatan Anthony MD Primary Care Provider [phone] Encounter Details Date Type Department Care Team (Late st Contact Info) Description 03/31/2022 Documentation Only [facility] [address] [place] [address] Christopher Caicedo PA Social History [...] Visit [facility] [place] [address] [facility] [place] [address] Tyrell Oden MD [address] [place] [address] [place] [address] Kidney replaced by transplant (Primary Dx); Personal history of immunosuppression therapy; Stage 3b chronic kidney disease (HCC); Hypertension; Type 2 diabetes mellitus with diabetic chronic kidney disease (HCC) documented as of this encounter Visit Diagnoses Not on filedocumented in this encounter Care Teams Telegraph Installer Relationship Specialty Start Date End Date Jonatan Anthony MD [facility] [address] [place] PCP - General Internal Medicine 04/29/22 documented as of this encounter
--- OUTSIDE RECORDS SUMMARY | 2025-04-10 09:48 | XMS_ITS | Encounter Summary ---
Author Organization [facility] Address [address] [place] [address] Phone Care Team Providers Care Machine Joint Cutter Name Role Phone Jonatan Anthony MD Primary Care Provider Encounter Details Date Type Department Care Team (Late st Contact Info) Description 09/17/2024 Documentation Only [facility] [address] [place] [address] [place], [place] [address] [place] [address] Social History Tobacco Use Types [...] Visit [facility] [place] [address] [place] [address] Tyrell Oden MD [address] [address] [place] [address] Kidney replaced by transplant (Primary Dx); Personal history of immunosuppression therapy; Stage 3b chronic kidney disease (HCC); Hypertension; Type 2 diabetes mellitus with diabetic chronic kidney disease (HCC) documented as of this encounter Visit Diagnoses Not on filedocumented in this encounter Care Teams Machine Joint Cutter Relationship Specialty Start Date End Date Jonatan Anthony MD [address] [place], [place] PCP - General Internal Medicine 04/29/22 documented as of this encounter
--- OUTSIDE RECORDS SUMMARY | 2025-04-10 09:48 | XMS_ITS | Encounter Summary ---
Author Organization [facility] Address [address] [place] [address] Phone Care Team Providers Care Car Worker Name Role Phone Jonatan Anthony MD Primary Care Provider [phone] Encounter Details Date Type Department Care Team (Late st Contact Info) Description 01/06/2023 Documentation Only [facility] [address] [place] [address] [place], [place] [address] [place] [address] Social History Tobacco Use Types Packs/Day Years [...] Visit [facility] [place] [address] [place] [address] Tyrell Oden MD [address] [facility] [address] [place] [address] Kidney replaced by transplant (Primary Dx); Personal history of immunosuppression therapy; Stage 3b chronic kidney disease (HCC); Hypertension; Type 2 diabetes mellitus with diabetic chronic kidney disease (HCC) documented as of this encounter Visit Diagnoses Not on filedocumented in this encounter Care Teams Car Worker Relationship Specialty Start Date End Date Jonatan Anthony MD [address] [place], [place] PCP - General Internal Medicine 04/29/22 documented as of this encounter
--- OUTSIDE RECORDS SUMMARY | 2025-04-10 09:48 | XMS_ITS | Encounter Summary ---
Author Organization [facility], Address [address] [place] [address] Phone Care Team Providers Care Laborer [place] Name Role Phone Jonatan Anthony MD Primary Care Provider [phone] Reason for Visit * Reason Comments Med Refill Encounter Details Date Type Department Care Team (Late st Contact Info) Description 02/24/2023 Refill [facility] [address] [place] [address] Christopher Caicedo PA Social History [...] Office Visit [facility] [address] [place] [address] Tyrell Oden MD [address] [place] [address] [place] [address] Kidney replaced by transplant (Primary Dx); Personal history of immunosuppression therapy; Stage 3b chronic kidney disease (HCC); Hypertension; Type 2 diabetes mellitus with diabetic chronic kidney disease (HCC) documented as of this encounter Visit Diagnoses Not on filedocumented in this encounter Care Teams Laborer [place] Relationship Specialty Start Date End Date Jonatan Anthony MD [facility] [address] [place] PCP - General Internal Medicine 04/29/22 documented as of this encounter
--- OUTSIDE RECORDS SUMMARY | 2025-04-10 09:48 | XMS_ITS | Clinical Summary ---
Author Organization [facility], Address [address] [place] [address] Phone Care Team Providers Care Pcb Designer Name Role Phone Jonatan Anthony MD Primary Care Provider [phone] Allergies Active Allergy Reactions Criticality Noted Date Comments Penicillins Swelling High 10/18/2021 Pravastatin Other (see comments) High 10/18/2021 Weakness/ muscle pain Medications docusate sodium (COLACE) 100 MG capsule Take 100 mg by mouth 06/07/20 23 Active folic acid (FOLVITE) 1 MG tabletIndication s:Long-term drug therapy TAKE ONE TABLET BY MOUTH ONCE DAILY 30 tablet 3 08/18/20 23 Active donepezil (Aricept) 10 MG tablet Take 1 tablet (10 mg total) by mouth every night 30 tablet 11 09/01/20 23 Active ezetimibe (Zetia) 10 MG tablet Take 1 tablet (10 mg total) by mouth 1 (one) time each day 30 tablet 11 05/03/20 24 025 Active gabapentin (NEURONTIN) 300 MG capsule Take 1 capsule (300 mg total) by mouth every night For neuropathy and insomnia. 30 capsule 06/24/20 24 025 Active carvedilol (COREG) 25 MG tablet Take 1 tablet (25 mg total) by mouth in the morning and 1 tablet (25 mg total) in the evening. 180 tablet 3 07/03/20 24 025 Active Jardiance 10 MG tablet TAKE 1 TAB BY MOUTH TIME EACH DAY IN THE MORNING 90 tablet 3 07/19/20 24 Active allopurinol (ZYLOPRIM) 100 MG tablet Take 1 tablet (100 mg total) by mouth 1 (one) time each day 90 tablet 3 09/03/20 24 Active NIFEdipine XL (PROCARDIA XL) 60 MG 24 hr tablet Take 1 tablet (60 mg total) by mouth 1 (one) time each day Do not crush, chew, or split. 30 tablet 11 09/09/20 24 025 Active Belatacept 250 MG reconstituted solution Infuse 2 vials into a venous catheter every 28 (twenty-eight ) days Administer 5mg per kg; pt weight as of 09/09/24 81.5 kg 2 each 11 09/19/20 24 025 Active mycophenolate (MYFORTIC) 360 MG EC tablet Take 1 tablet (360 mg total) by mouth in the morning and 1 tablet (360 mg total) in the evening. 180 tablet 3 11/29/19 25 026 Active cinacalcet (SENSIPAR) 30 MG tablet TAKE ONE TABLET BY MOUTH EVERY MORNING AND TAKE ONE TABLET EVERY EVENING 60 tablet 11 02/14/20 25 Active lisinopril 40 MG tablet Take 1 tablet (40 mg total) by mouth 1 (one) time each day 30 tablet 11 02/15/20 25 026 Active doxazosin (CARDURA) 4 MG tablet TAKE 1 TABLET (4 MG TOTAL) BY MOUTH AT BED TIME 90 tablet 3 03/21/20 25 Active doxazosin (CARDURA) 4 MG tablet Take 1 tablet (4 mg total) by mouth at bed time 90 tablet 3 03/28/20 24 025 Discontinued Active Problems Problem Noted Date Diagnosed Date [...] Encounters Date Type Department Care Team Description 04/01/2025 Orders Only [facility] [address] [place] [address] Maddy Nunez MA Kidney replaced by transplant (Primary Dx); Personal history of immunosuppression therapy; Stage 3b chronic kidney disease (HCC); Type 2 diabetes mellitus with diabetic chronic kidney disease (HCC); Anemia in chronic kidney disease; Type 2 diabetes mellitus, not otherwise specified (HCC); Hypervolemia; Vitamin D deficiency, not otherwise specified; Hypomagnesemia; Other iron deficiency anemia; Other specified hypoparathyroidism (HCC); Albuminuria, not otherwise specified; BK virus nephropathy 03/21/2025 [facility]ill [facility] [address] [place] [address] Tyrell Oden MD 02/14/2025 11:30 AM EDT Office Visit [facility] [address] [place] [address] Rakesh King MD Kidney replaced by transplant (Primary Dx); Personal history of immunosuppression therapy; Stage 3b chronic kidney disease (HCC) 02/12/2025 [facility]ill [facility] [address] [place] [address] Tyrell Oden MD 01/15/2025 Documentation Only [facility] [address] [place] [address] Maddy Nunez MA from Last 3 Months Immunizations Immunization Administration Dates Next Due DT 10/18/2007 Hep [...] Sign Reading Time Taken Comments Blood Pressure 170/80 02/14/2025 11:33 AM EDT Pulse 86 09/09/2024 9:52 AM EDT Temperature [...] [facility] [address] [place] [address] Tyrell Oden MD [address] [place] [address] [place] [address] Kidney replaced by transplant (Primary Dx); Personal history of immunosuppression therapy; Stage 3b chronic kidney disease (HCC); Hypertension; Type 2 diabetes mellitus with diabetic chronic kidney disease (HCC) Health Maintenance Due Date Last Done Comments Pneumococcal Vaccine: 50+ Years (3 of 3 - PCV20 or PCV21) 03/14/2017 01/17/2017, 09/12/2016, 09/07/2007 Diabetes: Ophthalmology Exam 12/20/2020 Diabetes: Pedal Pulse Checked 12/20/2020 Diabetes: Sensory Foot Exam 12/20/2020 Diabetes: Visual Foot Exam 12/20/2020 Colonoscopy (Post-Transplant Patient) 10/06/2021 Diabetes: Hemoglobin A1C 01/09/2025 024, 05/01/2024, 10/26/2023, Additional history exists Influenza Vaccine (Season Ended) 2025 07/20/2023, 08/13/2018, 09/13/2017, Additional history exists Hepatitis B Vaccine Aged Out 09/11/2000, 03/20/2000, 02/18/2000 No longer eligible based on patient's age to complete this topic Pneumococcal Vaccine: Peds (0 to 5 Years) and At-Risk Patients (6 to 49 Years) Discontinued 01/17/2017, 09/12/2016, 09/07/2007 Procedures Procedure Name Priority Date/Time Associated Diagnosis Comments BK VIRUS, DNA, QUANTITATIVE Routine 04/07/2025 11:53 AM EDT Kidney replaced by transplant Personal history of immunosuppression therapy Stage 3b chronic kidney disease (HCC) Type 2 diabetes mellitus with diabetic chronic kidney disease (HCC) Anemia in chronic kidney disease Type 2 diabetes mellitus, not otherwise specified (HCC) Hypervolemia Vitamin D deficiency, not otherwise specified Hypomagnesemia Other iron deficiency anemia Other specified hypoparathyroidism (HCC) Albuminuria, not otherwise specified BK virus nephropathy BK VIRUS, DNA, URINE, QUANTITATIVE Routine 04/07/2025 11:53 AM EDT Kidney replaced by transplant Personal history of immunosuppression therapy Stage 3b chronic kidney disease (HCC) Type 2 diabetes mellitus with diabetic chronic kidney disease (HCC) Anemia in chronic kidney disease Type 2 diabetes mellitus, not otherwise specified (HCC) Hypervolemia Vitamin D deficiency, not otherwise specified Hypomagnesemia Other iron deficiency anemia Other specified hypoparathyroidism (HCC) Albuminuria, not otherwise specified BK virus nephropathy URINALYSIS, COMPLETE Routine 04/07/2025 11:53 AM EDT Kidney replaced by transplant Personal history of immunosuppression therapy Stage 3b chronic kidney disease (HCC) Type 2 diabetes mellitus with diabetic chronic kidney disease (HCC) Anemia in chronic kidney disease Type 2 diabetes mellitus, not otherwise specified (HCC) Hypervolemia Vitamin D deficiency, not otherwise specified Hypomagnesemia Other iron deficiency anemia Other specified hypoparathyroidism (HCC) Albuminuria, not otherwise specified BK virus nephropathy URINE ALBUMIN / CREATININE RATIO Routine 04/07/2025 11:53 AM EDT Kidney replaced by transplant Personal history of immunosuppression therapy Stage 3b chronic kidney disease (HCC) Type 2 diabetes mellitus with diabetic chronic kidney disease (HCC) Anemia in chronic kidney disease Type 2 diabetes mellitus, not otherwise specified (HCC) Hypervolemia Vitamin D deficiency, not otherwise specified Hypomagnesemia Other iron deficiency anemia Other specified hypoparathyroidism (HCC) Albuminuria, not otherwise specified BK virus nephropathy CREATINE KINASE Routine 04/07/2025 11:53 AM EDT Kidney replaced by transplant Personal history of immunosuppression therapy Stage 3b chronic kidney disease (HCC) Type 2 diabetes mellitus with diabetic chronic kidney disease (HCC) Anemia in chronic kidney disease Type 2 diabetes mellitus, not otherwise specified (HCC) Hypervolemia Vitamin D deficiency, not otherwise specified Hypomagnesemia Other iron deficiency anemia Other specified hypoparathyroidism (HCC) Albuminuria, not otherwise specified BK virus nephropathy AST Routine 04/07/2025 11:53 AM EDT Kidney replaced by transplant Personal history of immunosuppression therapy Stage 3b chronic kidney disease (HCC) Type 2 diabetes mellitus with diabetic chronic kidney disease (HCC) Anemia in chronic kidney disease Type 2 diabetes mellitus, not otherwise specified (HCC) Hypervolemia Vitamin D deficiency, not otherwise specified Hypomagnesemia Other iron deficiency anemia Other specified hypoparathyroidism (HCC) Albuminuria, not otherwise specified BK virus nephropathy ALT Routine 04/07/2025 11:53 AM EDT Kidney replaced by transplant Personal history of immunosuppression therapy Stage 3b chronic kidney disease (HCC) Type 2 diabetes mellitus with diabetic chronic kidney disease (HCC) Anemia in chronic kidney disease Type 2 diabetes mellitus, not otherwise specified (HCC) Hypervolemia Vitamin D deficiency, not otherwise specified Hypomagnesemia Other iron deficiency anemia Other specified hypoparathyroidism (HCC) Albuminuria, not otherwise specified BK virus nephropathy PTH, INTACT Routine 04/07/2025 11:53 AM EDT Kidney replaced by transplant Personal history of immunosuppression therapy Stage 3b chronic kidney disease (HCC) Type 2 diabetes mellitus with diabetic chronic kidney disease (HCC) Anemia in chronic kidney disease Type 2 diabetes mellitus, not otherwise specified (HCC) Hypervolemia Vitamin D deficiency, not otherwise specified Hypomagnesemia Other iron deficiency anemia Other specified hypoparathyroidism (HCC) Albuminuria, not otherwise specified BK virus nephropathy IRON PANEL (FE, TIBC, TSAT) Routine 04/07/2025 11:53 AM EDT Kidney replaced by transplant Personal history of immunosuppression therapy Stage 3b chronic kidney disease (HCC) Type 2 diabetes mellitus with diabetic chronic kidney disease (HCC) Anemia in chronic kidney disease Type 2 diabetes mellitus, not otherwise specified (HCC) Hypervolemia Vitamin D deficiency, not otherwise specified Hypomagnesemia Other iron deficiency anemia Other specified hypoparathyroidism (HCC) Albuminuria, not otherwise specified BK virus nephropathy FERRITIN Routine 04/07/2025 11:53 AM EDT Kidney replaced by transplant Personal history of immunosuppression therapy Stage 3b chronic kidney disease (HCC) Type 2 diabetes mellitus with diabetic chronic kidney disease (HCC) Anemia in chronic kidney disease Type 2 diabetes mellitus, not otherwise specified (HCC) Hypervolemia Vitamin D deficiency, not otherwise specified Hypomagnesemia Other iron deficiency anemia Other specified hypoparathyroidism (HCC) Albuminuria, not otherwise specified BK virus nephropathy MAGNESIUM Routine 04/07/2025 11:53 AM EDT Kidney replaced by transplant Personal history of immunosuppression therapy Stage 3b chronic kidney disease (HCC) Type 2 diabetes mellitus with diabetic chronic kidney disease (HCC) Anemia in chronic kidney disease Type 2 diabetes mellitus, not otherwise specified (HCC) Hypervolemia Vitamin D deficiency, not otherwise specified Hypomagnesemia Other iron deficiency anemia Other specified hypoparathyroidism (HCC) Albuminuria, not otherwise specified BK virus nephropathy LIPID PANEL Routine 04/07/2025 11:53 AM EDT Kidney replaced by transplant Personal history of immunosuppression therapy Stage 3b chronic kidney disease (HCC) Type 2 diabetes mellitus with diabetic chronic kidney disease (HCC) Anemia in chronic kidney disease Type 2 diabetes mellitus, not otherwise specified (HCC) Hypervolemia Vitamin D deficiency, not otherwise specified Hypomagnesemia Other iron deficiency anemia Other specified hypoparathyroidism (HCC) Albuminuria, not otherwise specified BK virus nephropathy URIC ACID Routine 04/07/2025 11:53 AM EDT Kidney replaced by transplant Personal history of immunosuppression therapy Stage 3b chronic kidney disease (HCC) Type 2 diabetes mellitus with diabetic chronic kidney disease (HCC) Anemia in chronic kidney disease Type 2 diabetes mellitus, not otherwise specified (HCC) Hypervolemia Vitamin D deficiency, not otherwise specified Hypomagnesemia Other iron deficiency anemia Other specified hypoparathyroidism (HCC) Albuminuria, not otherwise specified BK virus nephropathy VITAMIN D 25 HYDROXY Routine 04/07/2025 11:53 AM EDT Kidney replaced by transplant Personal history of immunosuppression therapy Stage 3b chronic kidney disease (HCC) Type 2 diabetes mellitus with diabetic chronic kidney disease (HCC) Anemia in chronic kidney disease Type 2 diabetes mellitus, not otherwise specified (HCC) Hypervolemia Vitamin D deficiency, not otherwise specified Hypomagnesemia Other iron deficiency anemia Other specified hypoparathyroidism (HCC) Albuminuria, not otherwise specified BK virus nephropathy CBC AND DIFFERENTIAL Routine 04/07/2025 11:53 AM EDT Kidney replaced by transplant Personal history of immunosuppression therapy Stage 3b chronic kidney disease (HCC) Type 2 diabetes mellitus with diabetic chronic kidney disease (HCC) Anemia in chronic kidney disease Type 2 diabetes mellitus, not otherwise specified (HCC) Hypervolemia Vitamin D deficiency, not otherwise specified Hypomagnesemia Other iron deficiency anemia Other specified hypoparathyroidism (HCC) Albuminuria, not otherwise specified BK virus nephropathy RENAL FUNCTION PANEL Routine 04/07/2025 11:53 AM EDT Kidney replaced by transplant Personal history of immunosuppression therapy Stage 3b chronic kidney disease (HCC) Type 2 diabetes mellitus with diabetic chronic kidney disease (HCC) Anemia in chronic kidney disease Type 2 diabetes mellitus, not otherwise specified (HCC) Hypervolemia Vitamin D deficiency, not otherwise specified Hypomagnesemia Other iron deficiency anemia Other specified hypoparathyroidism (HCC) Albuminuria, not otherwise specified BK virus nephropathy MYCOPHENOLIC ACID AND METABO. Routine 04/07/2025 11:53 AM EDT Kidney replaced by transplant Personal history of immunosuppression therapy Stage 3b chronic kidney disease (HCC) Type 2 diabetes mellitus with diabetic chronic kidney disease (HCC) Anemia in chronic kidney disease Type 2 diabetes mellitus, not otherwise specified (HCC) Hypervolemia Vitamin D deficiency, not otherwise specified Hypomagnesemia Other iron deficiency anemia Other specified hypoparathyroidism (HCC) Albuminuria, not otherwise specified BK virus nephropathy MICROSCOPIC EXAMINATION - DO NOT USE Routine 04/07/2025 11:53 AM EDT URINALYSIS, COMPLETE Routine 02/12/2025 8:25 AM EDT Kidney replaced by transplant Personal history of immunosuppression therapy Stage 3b chronic kidney disease (HCC) Type 2 diabetes mellitus with diabetic chronic kidney disease (HCC) Other iron deficiency anemia Secondary hyperparathyroidism of renal origin (HCC) History of renal transplant URINE ALBUMIN / CREATININE RATIO Routine 02/12/2025 8:25 AM EDT Kidney replaced by transplant Personal history of immunosuppression therapy Stage 3b chronic kidney disease (HCC) Type 2 diabetes mellitus with diabetic chronic kidney disease (HCC) Other iron deficiency anemia Secondary hyperparathyroidism of renal origin (HCC) History of renal transplant IRON PANEL (FE, TIBC, TSAT) Routine 02/12/2025 8:25 AM EDT Kidney replaced by transplant Personal history of immunosuppression therapy Stage 3b chronic kidney disease (HCC) Type 2 diabetes mellitus with diabetic chronic kidney disease (HCC) Other iron deficiency anemia Secondary hyperparathyroidism of renal origin (HCC) History of renal transplant FERRITIN Routine 02/12/2025 8:25 AM EDT Kidney replaced by transplant Personal history of immunosuppression therapy Stage 3b chronic kidney disease (HCC) Type 2 diabetes mellitus with diabetic chronic kidney disease (HCC) Other iron deficiency anemia Secondary hyperparathyroidism of renal origin (HCC) History of renal transplant CREATINE KINASE Routine 02/12/2025 8:25 AM EDT Kidney replaced by transplant Personal history of immunosuppression therapy Stage 3b chronic kidney disease (HCC) Type 2 diabetes mellitus with diabetic chronic kidney disease (HCC) Other iron deficiency anemia Secondary hyperparathyroidism of renal origin (HCC) History of renal transplant ALT Routine 02/12/2025 8:25 AM EDT Kidney replaced by transplant Personal history of immunosuppression therapy Stage 3b chronic kidney disease (HCC) Type 2 diabetes mellitus with diabetic chronic kidney disease (HCC) Other iron deficiency anemia Secondary hyperparathyroidism of renal origin (HCC) History of renal transplant AST Routine 02/12/2025 8:25 AM EDT Kidney replaced by transplant Personal history of immunosuppression therapy Stage 3b chronic kidney disease (HCC) Type 2 diabetes mellitus with diabetic chronic kidney disease (HCC) Other iron deficiency anemia Secondary hyperparathyroidism of renal origin (HCC) History of renal transplant CBC AND DIFFERENTIAL Routine 02/12/2025 8:25 AM EDT Kidney replaced by transplant Personal history of immunosuppression therapy Stage 3b chronic kidney disease (HCC) Type 2 diabetes mellitus with diabetic chronic kidney disease (HCC) Other iron deficiency anemia Secondary hyperparathyroidism of renal origin (HCC) History of renal transplant RENAL FUNCTION PANEL Routine 02/12/2025 8:25 AM EDT Kidney replaced by transplant Personal history of immunosuppression therapy Stage 3b chronic kidney disease (HCC) Type 2 diabetes mellitus with diabetic chronic kidney disease (HCC) Other iron deficiency anemia Secondary hyperparathyroidism of renal origin (HCC) History of renal transplant MYCOPHENOLIC ACID AND METABO. Routine 02/12/2025 8:25 AM EDT Kidney replaced by transplant Personal history of immunosuppression therapy Stage 3b chronic kidney disease (HCC) Type 2 diabetes mellitus with diabetic chronic kidney disease (HCC) Other iron deficiency anemia Secondary hyperparathyroidism of renal origin (HCC) History of renal transplant MICROSCOPIC EXAMINATION - DO NOT USE Routine 02/12/2025 8:25 AM EDT HEMOGLOBIN A1C Routine 10/09/2024 10:12 AM EST [...] * (ABNORMAL) Urinalysis, Complete w/reflex to Culture (04/07/2025 11:53 AM EDT) Only the most recent of2 resultswithin the time period is included. Specific [place], Urine >=1.030(A) 1.005 - 1.030 [facility] pH Urine 5.5 5.0 - 7.5 [facility] Color, Urine Yellow Yellow [facility] [phone] Appearance Urine Clear Clear [facility] WBC Esterase Urine Negative Negative [facility] Protein, Ur 1+(A) Negative/Tra ce [facility] [phone] Glucose, Ur 3+(A) Negative [facility] Ketones, Urine Negative Negative [facility] [phone] Blood Urine Negative Negative [facility] Bilirubin Urine Negative Negative [facility] Urobilinogen Urine 0.2 0.2 - 1.0 mg/dL [facility] [phone] Nitrite, Urine Negative Negative [facility] Microscopic Examination See below: [facility] [phone] Comment:Microscopic was shin cated and was performed. URINALYSIS REFLEX Comment [facility] Comment:This specimen will n ot reflex to a Urine Culture. Urine specimen (specimen) Urine specimen obtained by clean catch procedure / Unknown 04/07/2025 11:53 AM EDT 04/07/2025 Tyrell Oden MD LAB URINE ORDERABLES Final Result Performing Organization Address City/[facility] Co de Phone Number [facility] [address] [place] [address] * Microscopic Examination (04/07/2025 11:53 AM EDT) Only the most recent of2 resultswithin the time period is included. WBC, Urine None seen 0 - 5 /hpf [facility] RBC, Urine None seen 0 - 2 /hpf [facility] Squamous Epithelial, Urine None seen 0 - 10 /hpf [facility] Casts None seen None seen /lpf [facility] Bacteria, Urine None seen None seen/Few [facility] 04/07/2025 11:5 3 AM EDT 04/07/2025 Tyrell Oden MD LAB MICROBIOLOGY - GENERAL ORDERABLES Final Result Performing Organization Address City/[facility] Co de Phone Number [facility] [address] [place] [address] * (ABNORMAL) Iron Panel (Fe, TIBC, TSAT) (04/07/2025 11:53 AM EDT) Only the most recent of2 resultswithin the time period is included. TIBC 242(L) 250 - 450 ug/dL [facility] UIBC 153 111 - 343 ug/dL [facility] Iron 89 38 - 169 ug/dL [facility] Iron Saturation (TSat) 37 15 - 55 % [facility] Blood specimen (specimen) Venous blood / Unknown 04/07/2025 11:53 AM EDT 04/07/2025 Tyrell Oden MD LAB BLOOD ORDERABLES Final Result [facility] [address] [place] [address] * BK Virus Urine, Quant PCR (04/07/2025 11:53 AM EDT) BK VIRUS PCR, QUANT, U 466,000 Negative IU/mL [facility] Comment:The linear range of the assay is 200 - 100,000,000 IU/ml log10 BK Qn PCR Ur 5.668 log10 IU/mL [facility] Urine specimen (specimen) Urine specimen obtained by clean catch procedure / Unknown 04/07/2025 11:53 AM EDT 04/07/2025 Tyrell Oden MD LAB URINE ORDERABLES Final Result Performing Organization Address City/[facility]/ZIP Co de Phone Number [facility] [address] [place] [address] * BK Virus DNA, Quant PCR (04/07/2025 11:53 AM EDT) BK VIRUS DNA, PCR 93 Negative IU/mL [facility] Comment:The linear range of the assay is 22 - 100,000,000 IU/mL. log10 BK Qn PCR, Plasma or Serum 1.968 log10 IU/mL [facility] Blood specimen (specimen) Venous blood / Unknown 04/07/2025 11:53 AM EDT 04/07/2025 Tyrell Oden MD LAB BLOOD ORDERABLES Final Result [facility] [address] [place] [address] * Vitamin D 25 Hydroxy (04/07/2025 11:53 AM EDT) Vitamin D, 25-OH, Total 34.2 30.0 - 100.0 ng/mL [facility] Comment: Vitamin D deficiency has been defined by the [place] of [employer] and an Endocrine Society practice guideline as a level of serum 25-OH vitamin D less than 20 ng/mL (1,2). The Endocrine Society went on to further define vitamin D insufficiency as a level between 21 and 29 ng/mL (2). 1. IOM ([place] of [employer]). 2010. Dietary reference ?? intakes for calcium and D. [place]: The ?? [employer]. 2. Yao MF, Santosh NC, Mele HURTADO, et al. ?? Evaluation, treatment, and prevention of vitamin D ?? deficiency: an Endocrine Society clinical practice ?? guideline. JCEM. 2010; 96(7):1911-30. Blood specimen (specimen) Venous blood / Unknown 04/07/2025 11:53 AM EDT 04/07/2025 Tyrell Oden MD LAB BLOOD ORDERABLES Final Result [facility] [address] [place] [address] * (ABNORMAL) CBC and Differential (04/07/2025 11:53 AM EDT) Only the most recent of2 resultswithin the time period is included. WBC 3.3(L) 3.4 - 10.8 x10E3/uL [facility] RBC 4.60 4.14 - 5.80 x10E6/uL [facility] Hemoglobin 14.2 13.0 - 17.7 g/dL [facility] Hematocrit 43.8 37.5 - 51.0 % [facility] MCV 95 79 - 97 fL [facility] MCH 30.9 26.6 - 33.0 pg [facility] MCHC 32.4 31.5 - 35.7 g/dL [facility] RDW 13.2 11.6 - 15.4 % [facility] Platelets 196 150 - 450 x10E3/uL [facility] Neutrophils Relative 50 Not Estab. % [facility] Lymphocytes Relative 33 Not Estab. % [facility] Monocytes 11 Not Estab. % [facility] Eosinophils Relative 3 Not Estab. % [facility] Basophils Relative 1 Not Estab. % [facility] Neutrophils Absolute 1.7 1.4 - 7.0 x10E3/uL [facility] Lymphocytes Absolute 1.1 0.7 - 3.1 x10E3/uL [facility] Monocytes Absolute 0.4 0.1 - 0.9 x10E3/uL [facility] Eosinophils Absolute 0.1 0.0 - 0.4 x10E3/uL [facility] Basophils Absolute 0.0 0.0 - 0.2 x10E3/uL [facility] Immature Granulocytes 2 Not Estab. % [facility] Immature Grans (Absolute) 0.1 0.0 - 0.1 x10E3/uL [facility] Blood specimen (specimen) Venous blood / Unknown 04/07/2025 11:53 AM EDT 04/07/2025 Tyrell Oden MD LAB BLOOD ORDERABLES Final Result Performing Organization Address City/[facility]/ZIP Co de Phone Number [facility] [address] [place] [address] * Uric Acid (04/07/2025 11:53 AM EDT) Uric Acid 5.9 3.8 - 8.4 mg/dL [facility] Comment:Therapeutic target f or gout patients: <6.0 Blood specimen (specimen) Venous blood / Unknown 04/07/2025 11:53 AM EDT 04/07/2025 Tyrell Oden MD LAB BLOOD ORDERABLES Final Result Performing Organization Address [facility] Co de Phone Number [facility] [place] [address] * ALT (04/07/2025 11:53 AM EDT) Only the most recent of2 resultswithin the time period is included. ALT (SGPT) 22 0 - 44 IU/L [facility] Blood specimen (specimen) Venous blood / Unknown 04/07/2025 11:53 AM EDT 04/07/2025 Tyrell Oden MD LAB BLOOD ORDERABLES Final Result Performing Organization Address City/[facility] Co de Phone Number [facility] [address] [place] [address] * AST (04/07/2025 11:53 AM EDT) Only the most recent of2 resultswithin the time period is included. AST (SGOT) 24 0 - 40 IU/L [facility] Blood specimen (specimen) Venous blood / Unknown 04/07/2025 11:53 AM EDT 04/07/2025 Tyrell Oden MD LAB BLOOD ORDERABLES Final Result Performing Organization Address [facility] Co de Phone Number [facility] [address] [place] [address] * (ABNORMAL) PTH, Intact (04/07/2025 11:53 AM EDT) [facility] PTH 227(H) 15 - 65 pg/mL [facility] Blood specimen (specimen) Venous blood / Unknown 04/07/2025 11:53 AM EDT 04/07/2025 Tyrell Oden MD LAB BLOOD ORDERABLES Final Result Performing Organization Address [facility] de Phone Number [facility] [address] [place] [address] * Magnesium (04/07/2025 11:53 AM EDT) [facility] Magnesium 2.0 1.6 - 2.3 mg/dL [facility] Blood specimen (specimen) Venous blood / Unknown 04/07/2025 11:53 AM EDT 04/07/2025 Tyrell Oden MD LAB BLOOD ORDERABLES Final Result Performing Organization Address [facility] de Phone Number [facility] [address] [place] [address] * (ABNORMAL) Ferritin (04/07/2025 11:53 AM EDT) Only the most recent of2 resultswithin the time period is included. Pathologist [facility] Ferritin 1,424(H) 30 - 400 ng/mL [facility] Blood specimen (specimen) Venous blood / Unknown 04/07/2025 11:53 AM EDT 04/07/2025 Tyrell Oden MD LAB BLOOD ORDERABLES Final Result Performing Organization Address City/[facility]/ZIP Co de Phone Number [facility] [address] [place] [address] * CK (04/07/2025 11:53 AM EDT) Only the most recent of2 resultswithin the time period is included. [facility] Creatine Kinase (CK/CPK) 49 41 - 331 U/L [facility] Blood specimen (specimen) Venous blood / Unknown 04/07/2025 11:53 AM EDT 04/07/2025 Tyrell Oden MD LAB BLOOD ORDERABLES Final Result Performing Organization Address [facility] Co de Phone Number [facility] [address] [place] [address] * (ABNORMAL) Renal Function Panel (04/07/2025 11:53 AM EDT) Only the most recent of2 resultswithin the time period is included. [facility] Glucose 104(H) 70 - 99 mg/dL [facility] BUN 39(H) 8 - 27 mg/dL [facility] Creatinine 1.76(H) 0.76 - 1.27 mg/dL [facility] eGFR CKD-EPI CR 2020 40(L) >59 mL/min/1.7 3 [facility] BUN/Creatinine Ratio 22 10 - 24 [facility] Sodium 142 134 - 144 mmol/L [facility] Potassium 4.8 3.5 - 5.2 mmol/L [facility] Bicarbonate (CO2) 18(L) 20 - 29 mmol/L [facility] Calcium 11.0(H) 8.6 - 10.2 mg/dL [facility] Comment:Verified by repeat analysis Albumin 4.2 3.8 - 4.8 g/dL [facility] Chloride 107(H) 96 - 106 mmol/L [facility] Phosphorus 2.6(L) 2.8 - 4.1 mg/dL [facility] Blood specimen (specimen) Venous blood / Unknown 04/07/2025 11:53 AM EDT 04/07/2025 Tyrell Oden MD LAB BLOOD ORDERABLES Final Result [facility] [address] [place] [address] * (ABNORMAL) Lipid panel (04/07/2025 11:53 AM EDT) HDL 55 >39 mg/dL [facility] Cholesterol 212(H) 100 - 199 mg/dL [facility] Triglycerides 237(H) 0 - 149 mg/dL [facility] VLDL Cholesterol Cruz 41(H) 5 - 40 mg/dL [facility] LDL Calculated 116(H) 0 - 99 mg/dL [facility] Blood specimen (specimen) Venous blood / Unknown 04/07/2025 11:53 AM EDT 04/07/2025 Tyrell Oden MD LAB BLOOD ORDERABLES Final Result [facility] [address] [place] [address] * Mycophenolic Acid and Metabo. (02/12/2025 8:25 AM EDT) Mycophenolic Acid 2.8 1.0 - 3.5 ug/mL [facility] Mycophenolic Acid Glucuronide 65 15 - 125 ug/mL [facility] Blood specimen (specimen) Venous blood / Unknown 02/12/2025 8:25 AM EDT 02/12/2025 Narrative [facility] - 02/15/2025 11:06 AM EDT Test(s) 707841-Rbipxzcehrmx Acid; 131793- Mycophenolic Acid Glucuronide was developed and its performance characteristics determined by [facility]. It has not been cleared or approved by the Food and Drug Administration. Tyrell Oden MD LAB BLOOD ORDERABLES Final Result [facility] [address] [place] [address] * (ABNORMAL) Urine Albumin / Creatinine Ratio (02/12/2025 8:25 AM EDT) Creatinine, Ur 120.4 Not Estab. mg/dL [facility] Albumin, Urine 141.0 Not Estab. ug/mL [facility] Albumin/Creatin ine Ratio 117(H) 0 - 29 mg/g creat [facility] Comment: ? Normal: ?0 - ??29 ? Moderately increased: 30 - 300 ? Severely increased: ? >300 Urine specimen (specimen) Urine specimen obtained by clean catch procedure / Unknown 02/12/2025 8:25 AM EDT 02/12/2025 Tyrell Oden MD LAB URINE ORDERABLES Final Result Performing Organization Address [facility] Co de Phone Number [facility] [employer] [facility] [address] [place] [address] * (ABNORMAL) Hemoglobin A1c (10/09/2024 10:12 AM EST) Hemoglobin A1C 5.8(H) 4.8 - 5.6 % [facility] Comment: ? Prediabetes: 5.7 - 6.4 ? Diabetes: >6.4 ? Glycemic control for adults with diabetes: <7.0 Blood specimen (specimen) Venous blood / Unknown 10/09/2024 10:12 AM EST 10/09/2024 Christopher THOMAS LAB BLOOD ORDERABLES Final Re sult Performing Organization Address [facility] Co de Phone Number [facility] [address] [place] [address] from Last 3 Months or Most Recently Relevant to Health Maintenance Insurance [facility] Medicare Medicare [facility] Care Teams Pcb Designer Relationship Specialty Start Date End Date Jonatan Anthony MD [address] [place] [address] PCP - General Internal Medicine 04/29/22
--- OUTSIDE RECORDS SUMMARY | 2025-04-10 09:48 | XMS_ITS | Encounter Summary ---
Author Organization [facility] Address [address] [place] [address] Phone Care Team Providers Care Canoe Inspector Name Role Phone Jonatan Anthony MD Primary Care Provider [phone] Reason for Visit * Reason Comments Med Refill Encounter Details Date Type Department Care Team ( Contact Info) Description 08/27/2024 Refill [facility] [address] [facility] [address] [place] [address] Rakesh King MD [address] [place] [address] [place] [address] Social History Tobacco Use Types [...] Visit [facility] [place] [address] [place] [address] Tyrell Oden MD [address] [place] [address] [place] [phone] Kidney replaced by transplant (Primary Dx); Personal history of immunosuppression therapy; Stage 3b chronic kidney disease (HCC); Hypertension; Type 2 diabetes mellitus with diabetic chronic kidney disease (HCC) documented as of this encounter Visit Diagnoses Not on filedocumented in this encounter Care Teams Canoe Inspector Relationship Specialty Start Date End Date Jonatan Anthony MD [address] [place], [place] PCP - General Internal Medicine 04/29/22 documented as of this encounter
--- OUTSIDE RECORDS SUMMARY | 2025-04-10 09:48 | XMS_ITS | Encounter Summary ---
Author Organization [facility], Address [address] [place] [address] Phone Care Team Providers Care Box Truck Washer Name Role Phone Jonatan Anthony MD Primary Care Provider Reason for Visit * Reason Comments Med Refill Encounter Details Date Type Department Care Team (Late st Contact Info) Description 08/01/2023 Refill [facility] [address] [place] [address] Christopher Caicedo PA Social History [...] Visit [facility] [address] [place] [address] Tyrell Oden MD [address] [place] [address] [place] [address] Kidney replaced by transplant (Primary Dx); Personal history of immunosuppression therapy; Stage 3b chronic kidney disease (HCC); Hypertension; Type 2 diabetes mellitus with diabetic chronic kidney disease (HCC) documented as of this encounter Visit Diagnoses Not on filedocumented in this encounter Care Teams Box Truck Washer Relationship Specialty Start Date End Date Jonatan Anthony MD [facility] [address] [place] PCP - General Internal Medicine 04/29/22 documented as of this encounter
--- OUTSIDE RECORDS SUMMARY | 2025-04-10 09:48 | XMS_ITS | Encounter Summary ---
Author Organization [facility] Address [address] [place] [address] Phone Care Team Providers Care Mechanical Systems Control Engineer Name Role Phone Jonatan Anthony MD Primary Care Provider [phone] Encounter Details Date Type Department Care Team (Late st Contact Info) Description 07/31/2023 Documentation Only [facility] [address] [place] [address] Angie Martinez [address] [place] [phone] Social History Tobacco Use Types Packs/Day Years [...] Visit [facility] [place] [address] [place] [address] Tyrell Oden MD [address] [place] [address] Kidney replaced by transplant (Primary Dx); Personal history of immunosuppression therapy; Stage 3b chronic kidney disease (HCC); Hypertension; Type 2 diabetes mellitus with diabetic chronic kidney disease (HCC) documented as of this encounter Visit Diagnoses Not on filedocumented in this encounter Care Teams Mechanical Systems Control Engineer Relationship Specialty Start Date End Date Jonatan Anthony MD [address] [place] PCP - General Internal Medicine 04/29/22 documented as of this encounter
--- OUTSIDE RECORDS SUMMARY | 2025-04-10 09:49 | XMS_ITS | Encounter Summary ---
Author Organization [facility] Address [address] [place] [address] Phone Care Team Providers Care Wool Sampler Name Role Phone Jonatan Anthony MD Primary Care Provider [phone] Reason for Visit * Reason Comments Med Refill Encounter Details Date Type Department Care Team (Late st Contact Info) Description 03/27/2024 Refill [facility] [place], [address] [place] [address] Giuliano Shirley MD [facility] [place] [address] Social History Tobacco Use Types Packs/Day Years [...] Visit [facility] [address] [place] [address] Tyrell Oden MD [address] [place] [address] Kidney replaced by transplant (Primary Dx); Personal history of immunosuppression therapy; Stage 3b chronic kidney disease (HCC); Hypertension; Type 2 diabetes mellitus with diabetic chronic kidney disease (HCC) documented as of this encounter Visit Diagnoses Not on filedocumented in this encounter Care Teams Wool Sampler Relationship Specialty Start Date End Date Jonatan Anthony MD [address] [place], [place] PCP - General Internal Medicine 04/29/22 documented as of this encounter
--- OUTSIDE RECORDS SUMMARY | 2025-04-10 09:49 | XMS_ITS ---
Author Organization [facility] Brad latoya Kaz Address [address] [facility] [place] [address] Care Team Providers Care Retail Area Manager Name Role Phone Jonatan Anthony Primary Care Provider Leticia Matthews Unavailable [phone] Allergies Allergen (clinical drug ingredient) Drug/Non Drug [...] use: Nonsmoker Vital Signs Height 5ft6in in 12/26/2024 Weight 175 lbs 12/26/2024 BMI 28.24 kg/m2 12/26/2024 Blood pressure systolic 160 mm Hg 12/26/19 25 Blood pressure diastolic 60 mm Hg 025 Procedures Procedure Date Ordered Date Performed Result Body Sit e 53211-PSFUHRV NAIL, 6 OR MORE 12/26/2024 N/A 38782-LXME SKIN LESIONS, 2 TO 4 12/26/2024 N/A Encounters Encounter Location Date Provider Diagnosis [facility] [place] [address] [place] [address] 12/26/2024 Leticia Black Type 2 diabetes mellitus [...] THERAPY.pdf) Pending Test Test Name Order Date 29679-ZZQVFUA NAIL, 6 OR MORE 12/26/2024 44521-QKFF SKIN LESIONS, 2 TO 4 12/26/19 25 Next Appt Details Follow Up: prn, Reason: Provider Name:Leticia Dwyer , 07/17/2025 09:15:00 AM, [address] [place] [address], [phone], Procedure Notes * Category Sub-Category Detail Notes [...] use of a nail nipper and/or dremel-type cylinder grinder, to a more viable healthy nail [...] to maintain effectiveness in symptomatic relief - 57893 Keratoma Treatment Parring or Cutting o f [...] instrumentation by the physician of record - 35967 Progress Notes * Maninder PACKDOB: [birth year] (74 yo M)Acc No.[id number]:12/26/2024 Progress Note Patient:?Maninder PACK Provider:?Leticia Dwyer DPM :1950???Age:74 Y???Sex:Male Sean e:12/26/2024 Address:[address] [place], [place] [id number] Pcp:Jonatan Anthony Subjective: * Chief Complaints: * [...] yes, walking. ?Marital status: . 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 * Medications:?TakingMultivita min Stool Softener , Notes [...] posterior and posterior/superior heel present, LEFT foot,Neg Sawyer.? Assessment: * Assessment: 1.?Type 2 diabetes mellitus [...] 2.?Type 2 diabetes mellitus with diabetic polyneuropathy?Procedure: 58406-CHAU SKIN LESIONS, 2 TO 4 3.?Tinea unguium?Procedure: 47879-UYYIFKP NAIL, 6 OR MORE * Procedures:?Debride Nail [...] of a nail nipper and/or dremel- type cylinder grinder, to a more viable healthy nail [...] to maintain effectiveness in symptomatic relief - 44066.?Keratoma Treatment:?Parring or Cutting of Benign Hyperkeratotic Lesion(s)?(-56) [...] instrumentation by the physician of record - 41425.? * Procedure Codes:?29675 DEBRI DE NAIL, 6 OR MORE, Modifiers: XS 43370 TRIM SKIN LESIONS, 2 TO 4, Modifiers: [...] Interfil injection therapy, as well as surgical [place]/Calcanectomy- tendon debridement surgical procedures if needed. Recommendations [...] Dwyer DPM Date:?2024 Generated for Sven montes/Swati/Navya on:?04/10/2025 09:48 AM EDT History and Physical Notes * [...] and posterior/superior heel present, LEFT foot, Neg Sawyer CQM Exceptions: Hemoglobin A1c not performed Reason:: No reason specified
--- OUTSIDE RECORDS SUMMARY | 2025-04-10 09:49 | XMS_ITS | Encounter Summary ---
Author Organization [facility] Address [address] [place] [address] Phone Care Team Providers Care Heavy Truck Mechanic Name Role Phone Jonatan Anthony MD Primary Care Provider [phone] Encounter Details Date Type Department Care Team (Late st Contact Info) Description 12/27/2023 Documentation Only [facility] [address] [place] [address] Nadja Moss [address] [place] [phone] Social History Tobacco Use Types Packs/Day Years [...] Visit [facility] [place] [address] [place] [address] Tyrell Oden MD [address] [place] [address] Kidney replaced by transplant (Primary Dx); Personal history of immunosuppression therapy; Stage 3b chronic kidney disease (HCC); Hypertension; Type 2 diabetes mellitus with diabetic chronic kidney disease (HCC) documented as of this encounter Visit Diagnoses Not on filedocumented in this encounter Care Teams Heavy Truck Mechanic Relationship Specialty Start Date End Date Jonatan Anthony MD [address] [place] PCP - General Internal Medicine 04/29/22 documented as of this encounter
--- OUTSIDE RECORDS SUMMARY | 2025-04-10 09:49 | XMS_ITS | Encounter Summary ---
Author Organization [facility] Address [address] [place] [address] Phone Care Team Providers Care Internist Medical Doctor Md Name Role Phone Jonatan Anthony MD Primary Care Provider [phone] Encounter Details Date Type Department Care Team (Late st Contact Info) Description 01/15/2025 Documentation Only [facility] [address] [place] [address] Maddy [place], [place] [address] [place] [address] Social History Tobacco Use Types [...] Visit [facility] [place] [address] [place] [address] Tyrell Oden MD [address] [place] [address] Kidney replaced by transplant (Primary Dx); Personal history of immunosuppression therapy; Stage 3b chronic kidney disease (HCC); Hypertension; Type 2 diabetes mellitus with diabetic chronic kidney disease (HCC) documented as of this encounter Visit Diagnoses Not on filedocumented in this encounter Care Teams Internist Medical Doctor Md Relationship Specialty Start Date End Date Jonatan Anthony MD [address] [place], [place] PCP - General Internal Medicine 04/29/22 documented as of this encounter
--- OUTSIDE RECORDS SUMMARY | 2025-04-10 09:49 | XMS_ITS | Encounter Summary ---
Author Organization [facility] [place], Address [address] [place] [address] Phone Care Team Providers Care Pilot Boat Deckhand Name Role Phone Jonatan Anthony MD Primary Care Provider [phone] Reason for Visit * Reason Comments Med Refill Encounter Details Date Type Department Care Team ( Contact Info) Description 11/18/2022 Refill [facility] [address] [place] [address] Tyrell Oden MD [address] [place] [address] [place] [address] Social History Tobacco Use Types [...] Office Visit [facility] [address] [place] [address] Tyrell Oden MD [address] [place] [address] [place] [address] Kidney replaced by transplant (Primary Dx); Personal history of immunosuppression therapy; Stage 3b chronic kidney disease (HCC); Hypertension; Type 2 diabetes mellitus with diabetic chronic kidney disease (HCC) documented as of this encounter Visit Diagnoses Not on filedocumented in this encounter Care Teams Pilot Boat Deckhand Relationship Specialty Start Date End Date Jonatan Anthony MD [address] [place], [place] PCP - General Internal Medicine 04/29/22 documented as of this encounter
--- OUTSIDE RECORDS SUMMARY | 2025-04-10 09:49 | XMS_ITS | Encounter Summary ---
Author Organization [facility] Address [address] [place] [address] Phone Care Team Providers Care Labor Relations Director Name Role Phone Jonatan Anthony MD Primary Care Provider [phone] Encounter Details Date Type Department Care Team (Late st Contact Info) Description 10/28/2024 Documentation Only [facility] [address] [place] [address] Maddy [place]une[place]OU[place]ET[place], [place] [address] [place] [address] Social History Tobacco Use Types [...] Visit [facility] [place] [address] [place] [address] Tyrell Oden MD [address] [place] [address] Kidney replaced by transplant (Primary Dx); Personal history of immunosuppression therapy; Stage 3b chronic kidney disease (HCC); Hypertension; Type 2 diabetes mellitus with diabetic chronic kidney disease (HCC) documented as of this encounter Visit Diagnoses Not on filedocumented in this encounter Care Teams Labor Relations Director Relationship Specialty Start Date End Date Jonatan Anthony MD [address] [place], [place] PCP - General Internal Medicine 04/29/22 documented as of this encounter
== END 2025-04-10 10:10 | disposition home or self-care (01) ==
LOC: HO.HMCH 09:30
PROVIDERS: PCP Internal Medicine; Visit Provider Internal Medicine
DX: I12.9 Hypertensive chronic kidney disease with stage 1 through stage 4 chronic kidney disease, or unspecified chronic kidney disease (principal); N18.4 Chronic kidney disease, stage 4 (severe); E11.65 Type 2 diabetes mellitus with hyperglycemia; Z94.0 Kidney transplant status; E78.00 Pure hypercholesterolemia, unspecified; L05.01 Pilonidal cyst with abscess

== ENCOUNTER → 2025-04-10 09:30 | Outpatient (BNVA) | payer MEDICARE, SELFPAY | PROVIDERS: PCP Internal Medicine; Visit Provider Internal Medicine | DX: I12.9 Hypertensive chronic kidney disease with stage 1 through stage 4 chronic kidney disease, or unspecified chronic kidney disease (principal); E11.22 Type 2 diabetes mellitus with diabetic chronic kidney disease; N18.4 Chronic kidney disease, stage 4 (severe); E11.65 Type 2 diabetes mellitus with hyperglycemia; E78.00 Pure hypercholesterolemia, unspecified; L05.01 Pilonidal cyst with abscess; Z79.4 Long term (current) use of insulin | CPT/HCPCS: 99212 ==

== ENCOUNTER 2025-05-13 14:20 | Outpatient (AMB) | payer MEDICARE, SELFPAY ==
--- NOTE | 2025-05-13 14:21 | A.OFFVIS_ITS ---
Vital Signs 05/13/25 14:29 Height 5 ft 6 in Weight 177 lb BMI 28.6 BP 136/60 Blood Pressure Location Rt brachial Position Sitting Pulse 69 Intake Visit Reasons: pilonidal cyst Intake Note: Patient is seen in office or evaluation of a pilonidal cyst. Present on and off a couple of months. Pt c/o: improved with doxycycline course. Front End Loader Driver Required: No Accompanied by: Self / Same As Patient Allergies Penicillins (PENICILLINS) Allergy (Unknown, Verified 05/13/25 14:26) UNKNOWN rosuvastatin (From Crestor) Allergy (Verified 05/13/25 14:26) Muscle Pain atorvastatin (From Lipitor) Adverse Reaction (Verified 05/13/25 14:26) Muscle Pain Medication List - Last Reconciled 05/13/25 by Walt Borrego MD allopurinol 100 mg PO DAILY ammonium lactate 12% 1 appl topical BID blood sugar diagnostic (FreeStyle Lite Strips) As directed blood-glucose meter (FreeStyle Lite Meter kit) As directed carvedilol 25 mg PO BID cinacalcet 30 mg PO DAILY docusate sodium 100 mg PO BID donepezil 10 mg PO BEDTIME 90 days doxazosin 2 mg PO BEDTIME empagliflozin (Jardiance) 10 mg PO DAILY ezetimibe 10 mg PO DAILY folic acid 1 mg PO DAILY gabapentin 300 mg PO DAILY hydrocortisone acetate (Anucort-HC) 25 mg [place] BID PRN lancets (FreeStyle Lancets) As directed lidocaine 5% 1 appl See Protocol topical Q6H PRN multivitamin with minerals 1 tab PO DAILY mycophenolate sodium 360 mg PO BID nifedipine ER 30 mg PO DAILY spironolactone 25 mg PO DAILY torsemide 60 mg PO BID HPI Comments Details: 75-year-old male patient presenting for evaluation of a pilonidal cyst. He 1st noted symptoms in the intergluteal region approximately 3-4 months ago and initially treated this with a topical antibiotic. The site improved however about a month ago he once again developed swelling and pain at the site. He was subsequently started on doxycycline and now knows that the lesion has subsided in his no longer able to feel pain but may have a small nodule at the site of the original infection. He denies any fever, chills, nausea or vomiting. He denies any previous surgical procedures including incision and drainage at the site. [facility] Medical History Chronic kidney disease Influenza A Community acquired bacterial pneumonia Anal fissure Screening for prostate cancer Hypercholesterolemia Hepatitis C virus infection cured after antiviral drug therapy Obesity (BMI 30-39.9) BPH (benign prostatic hyperplasia) Pulmonary nodule, left Right patella fracture Cervical spondylosis Anemia HTN (hypertension) Kidney failure Surgical History History of esophagogastroduodenoscopy (EGD) History of renal transplant History of colonoscopy History of cholecystectomy Fistula of artery Family History Father No problems noted. Mother No problems noted. Brother No problems noted. Brother No problems noted. Social History Household Members: Spouse Housing: House Do you presently have visiting nurse or other home services: No Alcohol intake: former Comment: quit 2004 Patient Tobacco Use Status: Former Tobacco user Tobacco use type: Cigarette Years Smoked: quit 1995 e-Cigarette/Vaping Use: Never Used Second Hand Smoke Exposure: No Advance Directives Date on File: 02/04/21 service: No Current occupational status: retired Cognitive needs: No Hearing needs: No Vision needs: Yes Review of Systems Const All systems reviewed & are unremarkable except as noted in HPI and below Physical Exam Vital Signs: Last Vital Signs Pulse 69 05/13/25 14:29 BP 136/60 05/13/25 14:29 BMI result Body Mass Index 28.6 Const General: cooperative and no acute distress Nutritional Appearance: well nourished Orientation/consciousness: patient oriented x3 Limitations: no limitations HEENT Head: Yes normocephalic and Yes atraumatic Ears: hearing grossly normal bilaterally Resp Effort & Inspection: normal respiratory effort, no audible wheezes, no cough and no respiratory distress Cardio Jugular venous distension: no JVD GI Inspection: Yes normal to inspection Back/Spine/Pelvis Other: Intergluteal cleft: No erythema, no fluctuance, no tenderness, no palpable mass, normal skin without evidence of ongoing pilonidal cyst abscess Skin Other: Warm, dry, no rash Neuro General: patient oriented x3 Extrem General: Yes no clubbing, cyanosis or edema Assessment & Plan Assessment & Plan (1) Pilonidal abscess: Code(s): L05.01 - Pilonidal cyst with abscess Category: Medical Plan 75-year-old male patient presenting for evaluation of a pilonidal cyst. By history he has had several mild infections of the pilonidal cyst but currently is asymptomatic after a course of oral antibiotics. Examination reveals no residual findings to indicate ongoing pilonidal disease. The surrounding skin is completely normal at this time. I recommended a surgical intervention at this time with observation. He is certainly welcome to return should the symptoms redevelop. Coding Level of Care Code New Pt Level 4 (09575) Diagnoses Pilonidal abscess L05.01
[2025-05-13 14:29] VITALS: BP 136/60; PULSE 69; BMI 28.6
--- OUTSIDE RECORDS SUMMARY | 2025-05-13 17:30 | XMS_ITS | Encounter Summary ---
Author Organization [facility] Address [address] [place] [address] Phone Care Team Providers Care Digital Imager Name Role Phone Jonatan Anthony MD Primary Care Provider [phone] Encounter Details Date Type Department Care Team (Late Contact Info) Description 05/01/2025 Documentation Only [facility], [address] [place] [address] Maddy Nunez [place] [address] [place] [address] Social History Tobacco Use Types [...] Department Care Team (Late Contact Info) Description 06/12/2025 3:30 PM EDT Clinical Support [facility] [address] [place] [address] Heather Hernandez FNP-C [address] [place] [address] documented as of this encounter Visit Diagnoses Not on filedocumented in this encounter Care Teams Digital Imager Relationship Specialty Start Date End Date Jonatan Anthony MD [facility] [place] [address] [place] PCP - General Internal Medicine 04/29/22 documented as of this encounter
== END 2025-05-13 14:39 | disposition home or self-care (01) ==
LOC: HO.HGS 14:20
PROVIDERS: PCP Internal Medicine; Visit Provider Surgery
DX: L05.01 Pilonidal cyst with abscess (principal)
CPT/HCPCS: 99204

== ENCOUNTER → 2025-05-13 14:20 | Outpatient (BNVA) | payer MEDICARE, SELFPAY | PROVIDERS: PCP Internal Medicine; Visit Provider Surgery | DX: L05.01 Pilonidal cyst with abscess (principal) | CPT/HCPCS: 99202 ==

== ENCOUNTER 2025-07-14 12:50 | Outpatient (AMB) | payer MEDICARE, SELFPAY ==
--- NOTE | 2025-07-14 13:13 | MHC.PC.OV ---
Vital Signs 07/14/25 13:14 Height 5 ft 6 in Weight 176 lb BMI 28.4 BP 132/80 Blood Pressure Location Rt brachial Position Sitting Pulse 59 Pulse Source Pulse Oximeter Temp 97.3 F Temp Source Temporal Artery Scan Pulse Oximetry (%) 98 Oxygen Delivery Method Room Air Intake Visit Reasons: ear infection Intake Note: Patient is here to follow up on Ear infection both ear but right is worse. Fairing Worker Required: No Linseed Oil Temperer: Not Required per policy Accompanied by: Self / Same As Patient Allergies Penicillins (PENICILLINS) Allergy (Unknown, Verified 07/14/25 13:14) UNKNOWN rosuvastatin (From Crestor) Allergy (Verified 07/14/25 13:14) Muscle Pain atorvastatin (From Lipitor) Adverse Reaction (Verified 07/14/25 13:14) Muscle Pain Tobacco use date assessed: 07/14/25 Fall risk assessment: No Falls in past year Last assessed Fall Risk: 07/14/25 Dental Screening Dental Screen Date: 01/24/25 HPI ear infection HPI Details was in [place] last month bilateal ear pain - was given antibiotic and done with it states did not workstates feels clogged , no fevers, mild sore throat- [facility] Medical History Chronic kidney disease Influenza A Community acquired bacterial pneumonia Anal fissure Screening for prostate cancer Hypercholesterolemia Hepatitis C virus infection cured after antiviral drug therapy Obesity (BMI 30-39.9) BPH (benign prostatic hyperplasia) Pulmonary nodule, left Right patella fracture Cervical spondylosis Anemia HTN (hypertension) Kidney failure Surgical History History of esophagogastroduodenoscopy (EGD) History of renal transplant History of colonoscopy History of cholecystectomy Fistula of artery Family History Father No problems noted. Mother No problems noted. Brother No problems noted. Brother No problems noted. Social History Household Members: Spouse Housing: House Do you presently have visiting nurse or other home services: No Alcohol intake: former Comment: quit 2004 Patient Tobacco Use Status: Former Tobacco user Tobacco use type: Cigarette Years Smoked: quit 1995 e-Cigarette/Vaping Use: Never Used Second Hand Smoke Exposure: Yes Advance Directives Date on File: 02/04/21 service: No Current occupational status: retired Cognitive needs: No Hearing needs: No Vision needs: Yes Questionnaire Thrive Questionnaire Date Thrive assessed: 04/03/25 I am a: Patient What is your living situation today?: I have a steady place to live Within the past 12 months, did the food you bought not last and you didn't have the money to get more?: Never true Within the past 12 months, did you worry whether your food would run out before you got money to buy more?: Sometimes True Do you have trouble paying for medicines?: No Do you have trouble getting transportation to medical appointments?: No Do you have trouble paying your heating and electricity bill?: No Do you have trouble taking care of your child, family member or friend?: No Do you have trouble with day-to-day activities such as bathing, preparing meals, shopping, managing finances, etc.?: No Are you currently unemployed and looking for a job?: No Are you interested in more education?: No Please select the resources that you would like help with: Paying for medicine Currently or been in a relationship where the following occur: No concerns reported THRIVE Score: 1 LESA-7 AMB Questionnaire LESA-7 Date LESA - 7 assessed: 04/10/25 Source: Developed by Drs. Giuliano العلي, Nguyen Bañuelos, Tristan Perales and colleagues, with an educational gabby from [employer]. Physical exam (Primary Care) Vital Signs: Last Vital Signs Temp 97.3 F 07/14/25 13:14 Pulse 59 07/14/25 13:14 BP 132/80 07/14/25 13:14 Pulse Ox 98 07/14/25 13:14 Oxygen Delivery Method Room Air 07/14/25 13:14 BMI result Body Mass Index 28.4 Tobacco/Smoking Status: Tobacco use Status Tobacco use date assessed 07/14/25 07/14/25 13:25 Patient Tobacco Use Status Former Tobacco user 07/14/25 13:25 Tobacco use type Cigarette 07/14/25 13:25 e-Cigarette/Vaping Use Never Used 07/14/25 13:25 Thrive Assessment: Date of Thrive Assessment Date Thrive assessed 04/03/25 07/14/25 13:25 Currently or been in a relationship where the following occur: No concerns reported Const General: alert; No acute distress Eyes Conjunctivae: conjunctivae normal Resp Auscultation: clear to auscultation bilaterally Cardio Rate: regular rate Rhythm: regular rhythm GI Inspection: Yes normal to inspection Extrem General: Yes normal to inspection and No edema Coding Level of Care Code Est Pt Level 4 (10813) Complex EM visit Add On G2211 Diagnoses Type 2 diabetes mellitus with hyperglycemia, without long-term current use of insulin E11.65 Diabetes mellitus correction insulin use: without correction use Essential hypertension I10 Hypertension type: essential hypertension Hypercholesterolemia E78.00 Renal transplant recipient Z94.0 Obstructive sleep apnea (adult) (pediatric) G47.33 Otitis media, right H66.91 Penicillin allergy Z88.0 Assessment & Plan Assessment & Plan (1) Type 2 diabetes mellitus with hyperglycemia: Comment: Eye and [facility] Code(s): E11.65 - Type 2 diabetes mellitus with hyperglycemia Category: Medical Qualifiers: Diabetes mellitus correction insulin use: without correction use Qualified Code(s): E11.65 - Type 2 diabetes mellitus with hyperglycemia Plan: Decrease the amount of carbohydrate intake, pasta, bread, rice and potatoes are all sugar and that is aside from all the sweet stuff, remember that fruits are good but they are Sweet also. Patient is under control hemoglobin A1c goal of less than 7.0 patient is on Jardiance 10 mg once a day (2) HTN (hypertension): Code(s): I10 - Essential (primary) hypertension Category: Medical Qualifiers: Hypertension type: essential hypertension Qualified Code(s): I10 - Essential (primary) hypertension Plan: Continue with blood pressure medication. Decrease salt intake and exercise patient on spironolactone, nifedipine, carvedilol at 25 mg twice a day (3) Hypercholesterolemia: Code(s): E78.00 - Pure hypercholesterolemia, unspecified Category: Medical Plan: Avoid fried foods, chicken skin, eggs, butter margarine, pastries and meat. Be it pork or beef they have a lot of cholesterol LDL goal of less than 100 and triglyceride of less than 150 patient on Zetia and can not tolerate statins (4) Renal transplant recipient: Comment: Cadaveric renal transplant right iliac fossa September 2021 Code(s): Z94.0 - Kidney transplant status Category: Surgical Plan: Continue to follow-up with Nephrology (5) Obstructive sleep apnea (adult) (pediatric): Comment: CPAP Code(s): G47.33 - Obstructive sleep apnea (adult) (pediatric) Category: Medical Plan: Continue to use the CPAP more than 4 hours a night and benefits from this (6) Otitis media, right: Code(s): H66.91 - Otitis media, unspecified, right ear Category: Medical (7) Penicillin allergy: Code(s): Z88.0 - Allergy status to penicillin Category: Medical Plan History of Present Illness The patient is a 75-year-old male presenting with an ear infection and follow-up for chronic conditions. The patient has a history of hypertension, hypercholesterolemia, and dementia, which have been managed over time. He is a renal transplant recipient since 2020 and has been diagnosed with obstructive sleep apnea, for which he uses CPAP therapy. The patient also has diabetes mellitus, which is currently controlled with a hemoglobin A1c of 5.4. He is on Jardiance 10 mg once daily as part of his diabetes management plan. Chronic kidney disease stage 4 is another significant condition in his medical history, with a recent creatinine level of 1.74 indicating stable renal function. The patient reports a recent ear infection that began after a trip to [place], characterized by ear pain, swelling, and discharge. He was treated with an antibiotic, which was ineffective, and he continues to experience symptoms. The patient has a history of anemia, with recent blood work showing a hemoglobin level of 13.4. His cholesterol management includes a goal LDL of less than 100, but recent tests show an LDL of 121. Health Maintenance - Cholesterol management with a goal LDL of less than 100 and triglycerides less than 150 - Diabetes management with a hemoglobin A1c goal of less than 7.0 - Follow-up with nephrology for chronic kidney disease Social History Review of Systems - Ears: Reports ear pain, swelling, and discharge. Denies fever. - Throat: Reports sore throat. - General: Denies congestion. Physical Exam - Ears: Swelling noted, pain on manipulation, no wax observed - Throat: No abnormalities noted Results - Labs: Hemoglobin 13.4, Creatinine 1.74, Hemoglobin A1c 5.4, LDL 121 Plan The patient will continue with his current regimen for diabetes management, including Jardiance 10 mg once daily, aiming to maintain a hemoglobin A1c of less than 7.0. For hypertension, he remains on spironolactone, nifedipine, and carvedilol 25 mg twice daily. Cholesterol management will focus on achieving an LDL goal of less than 100, with the patient currently on Zetia. The patient is advised to continue using CPAP for more than 4 hours nightly to manage obstructive sleep apnea. For the ear infection, a new antibiotic, doxycycline, will be prescribed along with an ear drop to address the swelling and discharge. The patient is referred to an beamster to evaluate his penicillin allergy. Follow-up with nephrology is recommended to monitor chronic kidney disease progression. Patient was informed and verbally consented to the use of an ambient scribe for clinic note documentation during this visit. Discussion Notes I discussed with the patient the management of his chronic conditions, including the importance of maintaining his current medication regimen for diabetes and hypertension. We reviewed the need for cholesterol management and the use of CPAP for sleep apnea. I explained the treatment plan for his ear infection, including the prescription of doxycycline and ear drops. The patient was informed about the referral to an beamster to assess his penicillin allergy. Patient Instructions - Continue taking Jardiance 10 mg once daily for diabetes management. - Take prescribed blood pressure medications as directed. - Use CPAP for more than 4 hours each night. - Take the new antibiotic and use ear drops as prescribed for the ear infection. - Follow up with nephrology as scheduled. - Attend the beamster appointment to evaluate penicillin allergy. Orders: Referrals Allergy & Immunology Referral Z88.0 - Allergy status to penicillin Medications: New hydrocortisone-acetic acid 1-2 % apply to (cotton) wick; replace wick every 24 hours 4 drps otic (ear) right TID 10 mL 0RF H66.91 - Otitis media, unspecified, right ear doxycycline hyclate 100 mg PO BID 14 caps 0RF H66.91 - Otitis media, unspecified, right ear
[2025-07-14 13:14] VITALS: BP 132/80; PULSE 59; TEMP 36.3; O2SAT 98; BMI 28.4
--- OUTSIDE RECORDS SUMMARY | 2025-07-14 13:59 | XMS_ITS ---
[facility] Name [facility] Problems Problem Status Onset Date Problem Type Date of Resoluti on Source Complication of transplanted kidney, unspecified complication active EncounterDiagnosisAct CCT Encounters Encounter Type Encounter Reason Primary Diagnosis Location Date Ambulatory Unspecified complication of kidney transplant [email or web address] 2023 Ambulatory Chronic kidney disease, stage 3b [email or web address] 09/21/2022 Ambulatory Unspecified complication of heart transplant [email or web address] 04/07/2022 Care Team Organization Name Specialty Phone Email Start Date End Da te [email or web address] PCP,No Primary Care 09/21/2022 [email or web address] NO PCP Primary Care 03/28/2022 09/05/2022
--- OUTSIDE RECORDS SUMMARY | 2025-07-14 13:59 | XMS_ITS | Clinical Summary ---
Author Organization [facility] Address [address] [place] [id number] Phone Care Team Providers Care Thread Twister Name Role Phone Walt Silveira MD Primary Care Provider Social History Tobacco Use Types Packs/Day Years Used Date Smoking Tobacco: Never Assessed Education Answer Date Recorded Are you interested in more education? Not on ddii e 02/19/2025 Are you concerned about learning? Not on file 02/19/2025 No 02/19/2025 No 02/19/2025 Digital Access Answer Date Recorded No 02/19/2025 No 02/19/2025 Reliable internet access at home? Not on file 02/19/2025 Device with a working camera? Not on file Sex and Gender Information Value Date Recorded Sex Assigned at Not on file Legal Sex Male 10:46 AM EDT Gender Identity Not on file Sexual Orientation Not on file Plan of Treatment Not on file Medical Devices Not on file Insurance MEDICARE PART A & B [employer] SUPPLEMENT MEDICARE PART A & B [employer] SUPPLEMENT MEDICARE PART A & B [employer] SUPPLEMENT MEDICARE PART A & B [employer] SUPPLEMENT MEDICARE PART A & B Member Subscriber Plan / Payer (Ef fective 2015-Present) Name:Maninder Pack Member ID:[id number] Relation to Subscriber:Self Name:Maninder Pack Subscriber ID:[id number] Payer ID:[id number] Group ID:Not on file Type:Medicare Address: [employer] [id number] [employer] MEDEX SUPPLEMENT MEDICARE PART A & B [employer] SUPPLEMENT Care Teams Thread Twister Relationship Specialty Start Date End Date Walt Silveira MD [address] [place] [address], [address] [place] [address] [email or web address] PCP - General Neurology 02/19/25 Additional Source Comments The information contained in this document represents components of the legal health record. It is not the complete legal health record.[facility]
--- OUTSIDE RECORDS SUMMARY | 2025-07-14 13:59 | XMS_ITS | Clinical Summary ---
Author Organization [facility] [employer] [facility] [employer] [facility] Address [address] [place] [address] Care Team Providers Care Cast Associate Name Role Phone Unavailable Primary Care Provider Unavailabl e Social History [...] 1960 Diabetes: Annual Retina Eye Exam 1960 Zoster Vaccines (1 of 2) 11/01/2013 09/06/2013 Pneumococcal Vaccine: 50+ Years (3 of 3 - PPSV23, PCV20 or PCV21) 03/14/2017 01/17/2017, 09/12/2016, 09/07/2007 DTaP,Tdap,and Td Vaccines (3 - Td or Tdap) 01/24/2024 01/23/2014, 10/18/2007 COVID-19 Vaccine (4 - season) 2024 01/21/2022, 02/12/2021, 12/31/2020 Depression Screening 11/20/2024 Cholesterol Screening (Lipid Panel) 02/12/2025 Colorectal Cancer Screening: Colonoscopy 02/12/2025 Diabetes: Annual Urine Albumin-Creatinine Ratio (uACR) 02/12/2025 Falls Risk Assessment 02/12/2025 Hepatitis C Screening 02/12/2025 Hypertension/CHF/CAD Annual BMP Blood Test 02/12/2025 Social Influencers of Health Screening 02/12/2025 Diabetes: Blood Sugar Control Test (HGBA1C) 04/08/2025 10/09/2024, 10/09/2024, 05/01/2024 RSV Immunization Adult Patients (1 - 1-dose 75+ series) 2025 Influenza Vaccine (#1) 2025 8, 09/13/2017, 09/04/2014, Additional history exists Hepatitis A [...]
--- OUTSIDE RECORDS SUMMARY | 2025-07-14 13:59 | XMS_ITS | Encounter Summary ---
Author Organization [facility] Address [address] [place] [address] Phone Care Team Providers Care Fast Food Manager Name Role Phone Jonatan Anthony MD Primary Care Provider [phone] Encounter Details Date Type Department Care Team ([facility] Contact Info) Description 05/01/2025 Documentation Only [facility], [address] [place] [address] Maddy Nunez [place] [address] [place] [address] Social History Tobacco Use Types [...] Department Care Team (Late Contact Info) Description 08/07/2025 2:45 PM EDT Clinical Support [facility] [address] [place] [address] Heather Hernandez FNP-C [address] [place] [address] documented as of this encounter Visit Diagnoses Not on filedocumented in this encounter Care Teams Fast Food Manager Relationship Specialty Start Date End Date Jonatan Anthony MD [facility] [place] [address] [place] PCP - General Internal Medicine 04/29/22 documented as of this encounter
--- OUTSIDE RECORDS SUMMARY | 2025-07-14 13:59 | XMS_ITS | Patient Health Record ---
[facility] Address [address] [place] [address] Care Team Providers Care Supervisor Grower Name Role Phone Jonatan Anthony Primary Care Provider Leticia Matthews Unavailable [phone] Allergies Allergen (clinical drug ingredient) Drug/Non Drug [...] 4 MG 1 tablet Orally Once a day; Duration: 30 day(s) Active Ammonium Lactate 12 % APPLY TO AFFECTED AREA TWICE A DAY TO DRY AREAS OF SKIN ON FEET; Duration: 30 Active Carvedilol 25 MG 1 tablet with food Orally Twice a day; Duration: 30 day(s) Active NIFEdipine ER 60 MG 1 tablet on an empty stomach Orally Once a day; Duration: 30 day(s) Active Envarsus XR 1 MG as directed Orally Active Entecavir 0.5 MG 1 tablet on an empty stomach Orally Once a day; Duration: 10 day(s) Active Gabapentin 300 MG TAKE 1 CAPSULE BY MOUTH EVERY NIGHT FOR NEUROPATHY AND INSOMNIA. Oral; Duration: 30 Active Extra Depth Orthopedic Shoes (1 Pair) with Customized Heat Molded Multidensity Innersoles (3 Pair) as directed Dx: NIDDM/Polyneuropathy (E11.42), Hammertoe Foot Deformity (M20.41,M20.42), Preulcerative Skin Lesion(s) (L85.1 Active Cinacalcet HCl 30 MG TAKE ONE TABLET BY MOUTH ONCE DAILY Oral; Duration: 30 Active Mycophenolate Sodium 360 MG Oral; Duration: 30 Z940,Unavail able Active Spironolactone 25 MG TAKE 1 TABLET BY MOUTH 1 TIME EACH DAY. Oral; Duration: 90 Active Jardiance 10 MG TAKE 1 TAB BY MOUTH TIME EACH DAY IN THE MORNING Oral; Duration: 90 Active Extra Depth Orthopedic Shoes (1 [...] AFO - L1930 1 wear when at rest; Duration: 30 days Active Multivitamin Active Tamsulosin HCl 0.4 MG Oral; Duration: 30 Days Active Lasix 20 MG 1 tablet Orally Once a day; Duration: 30 day(s) Active Magnesium 400 MG as directed Orally Not-Taking Sensipar 30 MG 1 tablet with food or after a meal Orally Once a day; Duration: 30 day(s) Active glipiZIDE 5 MG 1 tablet 30 minutes before breakfast Orally Once a day; Duration: 30 day(s) Not-Taking Rosuvastatin Calcium 5 MG 1 tablet Orally Once a day; Duration: 30 day(s) Active Folic Acid 1 MG 1 tablet Orally Once a day; Duration: 30 day(s) Active Allopurinol 100 MG 1 tablet Orally Once a day; Duration: 30 day(s) Active Donepezil HCl 5 MG 1 tablet at bedtime Orally Once a day; Duration: 30 day(s) Active Immunizations Vaccine Route Administration [...] Problem Status W/U Status Risk Notes Problem 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.22) Active confirmed Problem Polyneuropathy due to type 2 diabetes mellitus (994125393) Type 2 diabetes mellitus with diabetic polyneuropathy (E11.42) Active confirmed Vital Signs Blood pressure diastolic 60 mm Hg 03/31/2025 Height 5ft6in in 03/31/2025 Blood pressure systolic 160 mm Hg 03/31/2025 Weight 176 lbs 03/31/2025 BMI 28.4 kg/m2 03/31/2025 Procedures Procedure Date Ordered Date Performed Result Body Sit e 30246-DSDEJKW NAIL, 6 OR MORE 09/19/2024 N/A 41043-PEGB SKIN LESIONS, 2 TO 4 09/19/2024 N/A 16161-FDGGJZW NAIL, 6 OR MORE 12/26/2024 N/A 10191-PRYK SKIN LESIONS, 2 TO 4 12/26/2024 N/A 22184-NHFJCPX NAIL, 6 OR MORE 03/31/2025 N/A 58941-VHWJ SKIN LESIONS, 2 TO 4 03/31/2025 N/A Encounters Encounter Location Date Provider Diagnosis [facility] [address] [place] [address] 09/19/2024 Leticia Black Type 2 diabetes mellitus [...] foot M77.51 and Metatarsalgia, right foot M77.[address] [address] 12/26/2024 Leticia Dwyer Type 2 diabetes mellitus [...] Short Achilles tendon (acquired), left ankle M67.[address] [address] 03/31/2025 Leticia Dwyer Type 2 diabetes mellitus with [...] Short Achilles tendon (acquired), left ankle M67.[address] [address] 08/19/2024 Leticia Dwyer Xerosis cutis L85.[address] [address] 01/02/2025 Leticia Black [address] [address] 05/22/2025 Leticiacandis Dwyer Assessments Encounter Date Diagnosis (ICD Code) Assessment Notes Treatment Notes Treatment Clinical Notes Section Notes 08/19/2024 Xerosis cutis (ICD-10 - L85.3) 09/19/2024 [...] Treatment Pending Test Test Name Order Date 79150-NJFXGKB NAIL, 6 OR MORE 12/08/2022 88599-JLHXZDE NAIL, 6 OR MORE 12/11/2023 77292-VQXJNCJ NAIL, 6 OR MORE 03/14/2024 02800-VCLBCAE NAIL, 6 OR MORE 06/13/2024 82214-CRQGDFQ NAIL, 6 OR MORE 09/19/2024 86026-TVZRPTF NAIL, 6 OR MORE 12/26/2024 10712-AKSXQFG NAIL, 6 OR MORE 03/31/2025 92528-HEIRKCG NAIL, 6 OR MORE 03/09/2023 34502-HRWBYTG NAIL, 6 OR MORE 09/01/2022 06290-Erysjaij Plate 03/09/2023 04626-Duxmxylq Plate 03/14/2024 37450-HBEM SKIN LESIONS, 2 TO 4 12/08/19 38757-HVLB SKIN LESIONS, 2 TO 4 06/13/20 48336-VFEA SKIN LESIONS, 2 TO 4 03/14/20 72529-XOZY SKIN LESIONS, 2 TO 4 12/11/19 48614-HUBV SKIN LESIONS, 2 TO 4 03/09/20 40678-ELDJ SKIN LESIONS, 2 TO 4 03/31/20 91841-CLAV SKIN LESIONS, 2 TO 4 12/26/19 35826-DEBQ SKIN LESIONS, 2 TO 4 09/19/20 Next Appt Details Provider Name:Leticia Dwyer , 07/17/2025 09:15:00 AM, [address] [place], [address], Insurance Providers Payer Name Payer Address Payer Phone Subscriber Number Group Number Insured Name Patient Relationship to Insured Coverage Start Date Coverage End Date Medicare National Govt [employer] [address] [place] [address] [id number] Maninder Pack Self - patient is the insured [employer] [address] [place] [address] [phone] [id number] 1 [employer]inder [employer] Self - patient is [...]
--- OUTSIDE RECORDS SUMMARY | 2025-07-14 13:59 | XMS_ITS | Clinical Summary ---
Author Organization [facility] Address [address] [place] [address] Care Team Providers Care Vending Attendant Name Role Phone Pcp, No Primary Care [...] MEDICARE PART A & B Care Teams Vending Attendant Relationship Specialty Start Date End Date Pcp, No [address] [place] [address] PCP - General 03/28/22
== END 2025-07-14 14:27 | disposition home or self-care (01) ==
LOC: HO.HMCH 12:51
PROVIDERS: PCP Internal Medicine; Visit Provider Internal Medicine
DX: E11.65 Type 2 diabetes mellitus with hyperglycemia (principal); I10 Essential (primary) hypertension; E78.00 Pure hypercholesterolemia, unspecified; Z94.0 Kidney transplant status; G47.33 Obstructive sleep apnea (adult) (pediatric); H66.91 Otitis media, unspecified, right ear; Z88.0 Allergy status to penicillin

== ENCOUNTER → 2025-07-14 12:50 | Outpatient (BNVA) | payer MEDICARE, SELFPAY | PROVIDERS: PCP Internal Medicine; Visit Provider Internal Medicine | DX: E11.65 Type 2 diabetes mellitus with hyperglycemia (principal); E78.00 Pure hypercholesterolemia, unspecified; I10 Essential (primary) hypertension; G47.33 Obstructive sleep apnea (adult) (pediatric); H66.91 Otitis media, unspecified, right ear; Z94.0 Kidney transplant status; Z88.0 Allergy status to penicillin | CPT/HCPCS: 99212 ==

== ENCOUNTER 2025-07-25 13:44 | Outpatient (AMB) | payer MEDICARE, SELFPAY ==
--- OUTSIDE RECORDS SUMMARY | 2024-07-04 06:00 | XMS_ITS ---
Author Organization [facility] Address [address] [place] [address] Care Team Providers Care Design Supervisor Name Role Phone Jonatan Anthony Primary Care Provider Leticia Matthews [phone] REASON FOR VISIT Seen Sooner Encounters Encounter Location Date Provider Diagnosis [facility] [address] [place] [address] 07/04/2024 Leticia Dwyer Plan Of Treatment Next Appt Details Provider Name:Leticia Dwyer , 09/29/2025 04:00:00 PM, [address] [place], [address], Progress Notes * Maninder PACKDOB: [birth year] (75 yo M)Acc No.[id number]:07/04/2024 Progress Note Patient: Maninder CARVER Provider: Cindy Dwyer DPM :1950 A ge:74 Y S ex:Male Date:07/04/2024 Address:[address] [place] [address] Pcp:Jonatan Anthony Subjective: * Chief Complaints: * [...] 07/04/2024 Generated for Sven montes/Swati/Alizeitting on: 0 07/25/2025 02:13 PM EDT
[2025-07-25 13:49] VITALS: BP 132/60; PULSE 65; RESP 18; TEMP 36.3; O2SAT 98; BMI 28.3
--- NOTE | 2025-07-25 13:49 | MHC.PC.OV ---
Vital Signs 07/25/25 13:49 Height 5 ft 6 in Weight 175 lb 6 oz BMI 28.3 BP 132/60 Blood Pressure Location Rt brachial Position Sitting Respiration 18 Pulse 65 Pulse Source Pulse Oximeter Temp 97.3 F Temp Source Temporal Artery Scan Pulse Oximetry (%) 98 Oxygen Delivery Method Room Air Intake Visit Reasons: rt ear pain Cane Packer Required: No Accompanied by: Self / Same As Patient Allergies Penicillins (PENICILLINS) Allergy (Unknown, Verified 07/25/25 14:04) UNKNOWN rosuvastatin (From Crestor) Allergy (Verified 07/25/25 14:04) Muscle Pain atorvastatin (From Lipitor) Adverse Reaction (Verified 07/25/25 14:04) Muscle Pain Medication List - Last Reconciled 07/25/25 by JOHANN Cota allopurinol 100 mg PO DAILY ammonium lactate 12% 1 appl topical BID blood sugar diagnostic (FreeStyle Lite Strips) As directed blood-glucose meter (FreeStyle Lite Meter kit) As directed carvedilol 25 mg PO BID cinacalcet 30 mg PO DAILY docusate sodium 100 mg PO BID donepezil 10 mg PO BEDTIME 90 days doxazosin 2 mg PO BEDTIME doxycycline hyclate 100 mg PO BID empagliflozin (Jardiance) 10 mg PO DAILY ezetimibe 10 mg PO DAILY folic acid 1 mg PO DAILY gabapentin 300 mg PO DAILY hydrocortisone acetate (Anucort-HC) 25 mg AL BID PRN lancets (FreeStyle Lancets) As directed lidocaine 5% 1 appl See Protocol topical Q6H PRN multivitamin with minerals 1 tab PO DAILY mycophenolate sodium 360 mg PO BID xaymiakq-aldbegepy-IG 3.5-10,000-1 mg/mL-unit/mL-% 4 drps otic (ears) Q8H 10 days nifedipine ER 30 mg PO DAILY spironolactone 25 mg PO DAILY torsemide 60 mg PO BID Tobacco use date assessed: 07/25/25 Fall risk assessment: No Falls in past year Last assessed Fall Risk: 07/25/25 Dental Screening Dental Screen Date: 07/25/25 Did you have a dental visit in the last 12 months?: Yes Did you have a dental problem in the last 6 months where you did not have access to dental care?: No Was dental information given to patient?: Patient has dentist HPI rt ear pain HPI Details The patient is a 75-year-old male presenting with persistent earache. The earache has been ongoing for approximately a month, initially treated with antibiotics in [place], and Treated with Doxycycline and ear drops prescribed by Dr. Anthony, which did not alleviate the symptoms. The patient reports worsening symptoms, including a sensation of fullness and popping in the ear, particularly at night, primarily in the right ear. The patient has a history of recurrent ear infections, with four episodes in the past seven months, including treatment during a recent trip to [place]. The patient suspects that airplane pressure may have exacerbated the condition. The patient also reports pain when opening the mouth, which may suggest temporomandibular joint disorder. The patient denies grinding teeth but uses a CPAP machine. The patient has a history of a kidney transplant and is on immunosuppressants, which may complicate the management of infections. There is also a concern about a possible penicillin allergy, although the patient did not experience a reaction when inadvertently given penicillin in the past, but he is not sure about this matter. [facility] Medical History Chronic kidney disease Influenza A Community acquired bacterial pneumonia Anal fissure Screening for prostate cancer Hypercholesterolemia Hepatitis C virus infection cured after antiviral drug therapy Obesity (BMI 30-39.9) BPH (benign prostatic hyperplasia) Pulmonary nodule, left Right patella fracture Cervical spondylosis Anemia HTN (hypertension) Kidney failure Surgical History History of esophagogastroduodenoscopy (EGD) History of renal transplant History of colonoscopy History of cholecystectomy Fistula of artery Family History Father No problems noted. Mother No problems noted. Brother No problems noted. Brother No problems noted. Social History Household Members: Spouse Housing: House Do you presently have visiting nurse or other home services: No Alcohol intake: former Comment: quit 2004 Patient Tobacco Use Status: Former Tobacco user Tobacco use type: Cigarette Years Smoked: quit 1995 e-Cigarette/Vaping Use: Never Used Second Hand Smoke Exposure: Yes Advance Directives Date on File: 02/04/21 service: No Current occupational status: retired Cognitive needs: No Hearing needs: No Vision needs: Yes Questionnaire PHQ-9 Over the last 2 weeks, how often have you been bothered by any of the following problems? 1. Little interest or pleasure in doing things: not at all 2. Feeling down, depressed, or hopeless: not at all 3. Trouble falling or staying asleep, or sleeping too much: not at all 4. Feeling tired or having little energy: not at all 5. Poor appetite or overeating: not at all 6. Feeling bad about yourself - or that you are a failure or have let yourself or your family down: not at all 7. Trouble concentrating on things, such as reading the newspaper or watching television: not at all 8. Moving or speaking so slowly that other people could have noticed. Or the opposite - being so fidgety or restless that you have been moving around a lot more than usual: not at all 9. Thoughts that you would be better off or of hurting yourself in some way: not at all Total score: 0 Depression Screening Interpretation: Negative Depression Screening Done: Yes Source: Developed by Drs. Giuliano العلي, Nguyen Bañuelos, Tristan Perales and colleagues, with an educational gabby from [employer]. Thrive Questionnaire Date Thrive assessed: 07/25/25 I am a: Patient What is your living situation today?: I have a steady place to live Within the past 12 months, did the food you bought not last and you didn't have the money to get more?: Never true Within the past 12 months, did you worry whether your food would run out before you got money to buy more?: Sometimes True Do you have trouble paying for medicines?: No Do you have trouble getting transportation to medical appointments?: No Do you have trouble paying your heating and electricity bill?: No Do you have trouble taking care of your child, family member or friend?: No Do you have trouble with day-to-day activities such as bathing, preparing meals, shopping, managing finances, etc.?: No Are you currently unemployed and looking for a job?: No Are you interested in more education?: No Please select the resources that you would like help with: Paying for medicine Currently or been in a relationship where the following occur: No concerns reported THRIVE Score: 1 AUDIT C Alcohol Use Questionnaire (AUDIT-C) 1. How often do you have a drink containing alcohol?: Never 3. How often do you have six or more drinks on one occasion?: Never Total Score: 0 LESA-7 AMB Questionnaire LESA-7 Date LESA - 7 assessed: 07/25/25 Feeling nervous, anxious, or on edge: 2 = More than half the days Not being able to stop or control worryin = More than half the days Worrying too much about different things: 0 = Not at all Trouble relaxin = Not at all Being so restless that it is hard to sit still: 0 = Not at all Becoming easily annoyed or irritable: 0 = Not at all Feeling afraid as if something awful might happen: 0 = Not at all Total LESA-7 score (0-4 normal; 5-9 mild; 10-14 moderate; 15-21 severe): 4 Source: Developed by Drs. Giuliano العلي, Nguyen Bañuelos, Tristan Perales and colleagues, with an educational gabby from [employer]. Review of Systems Const Denies body aches, Denies chills, Denies fever(s), Denies headache(s) and Denies poor appetite Eyes Reports no additional complaints ENT Denies dental pain, Denies dysphagia, Denies dizziness, Reports otalgia (primarily the right ear), Denies headache(s) and Denies odynophagia Card Denies chest pain, Denies syncope, Denies edema, Denies irregular heart rhythm, Denies lightheadedness and Denies dyspnea Resp Denies cough and Denies dyspnea GI Denies abdominal pain, Denies constipation, Denies dysphagia, Denies diarrhea, Denies nausea, Denies odynophagia and Denies vomiting Reports no additional complaints Musc Reports no additional complaints and Denies abnormal gait Skin/Breast Reports system reviewed and no additional complaints, except as documented Neuro Denies abnormal gait, Denies dizziness, Denies syncope and Denies headache(s) Psych Reports no additional complaints Physical exam (Primary Care) Vital Signs: Last Vital Signs Temp 97.3 F 07/25/25 13:49 Pulse 65 07/25/25 13:49 Resp 18 07/25/25 13:49 BP 132/60 07/25/25 13:49 Pulse Ox 98 07/25/25 13:49 Oxygen Delivery Method Room Air 07/25/25 13:49 BMI result Body Mass Index 28.3 Tobacco/Smoking Status: Tobacco use Status Tobacco use date assessed 07/25/25 07/25/25 14:00 Patient Tobacco Use Status Former Tobacco user 07/25/25 14:00 Tobacco use type Cigarette 07/25/25 14:00 e-Cigarette/Vaping Use Never Used 07/25/25 14:00 PHQ-9: PHQ-9 Score PHQ-9: Total score 0 07/25/25 14:00 Depression Screening Interpretation: Negative Thrive Assessment: Date of Thrive Assessment Date Thrive assessed 07/25/25 07/25/25 14:00 Currently or been in a relationship where the following occur: No concerns reported Const General: cooperative, healthy appearing, comfortable and no acute distress Orientation/consciousness: patient oriented x3 HENMT Head: Yes normocephalic Ears: Abnormal EAC present erythema on the right, edema on the right and other (small polyp covered with purulent drainage/yellowish) and TM abnormal dull on the left and with loss of landmarks on the right and on the left General nose exam: Normal external nose present Eyes General: appearance normal, both eyes and all related structures Conjunctivae: conjunctivae normal Neck Neck: Yes full ROM and Yes no lymphadenopathy Resp Effort & Inspection: normal respiratory effort Auscultation: clear to auscultation bilaterally, no crackles, no rales, no rhonchi and no wheezes Cardio Rate: regular rate Rhythm: regular rhythm Skin General skin exam: no rashes or lesions noted Neuro General: patient oriented x3 Gait exam (Neuro): Normal gait present Extrem General: Yes normal to inspection, Yes full ROM and No edema Psych Affect: normal affect Attitude: cooperative Insight: Good insight present (Psych) Judgement: Good judgement present (Psych) Coding Level of Care Code Est Pt Level 3 (72439) Diagnoses Subacute otitis media, unspecified otitis media type H66.90 Otitis media type: unspecified Chronicity: subacute Time Spent (min) 32 Assessment & Plan Assessment & Plan (1) Otitis media: Code(s): H66.90 - Otitis media, unspecified, unspecified ear Category: Medical Qualifiers: Otitis media type: unspecified Chronicity: subacute Qualified Code(s): H66.90 - Otitis media, unspecified, unspecified ear Plan: The patient will be prescribed Levofloxacin 500 mg once daily for 7 days to address the persistent ear infection. Additionally, a different type of ear drops (vosol) will be administered, and an urgent referral to an ear, nose, and throat specialist will be made. Plan Patient has a follow up appointment for chronic conditions with Dr. Anthony on August 07; encouraged the patient to keep this appointment, so he could be reevaluated. Orders: Referrals Ear/Nose/Throat Referral H66.90 - Otitis media, unspecified, unspecified ear, Z86.69 - Personal history of other diseases of the nervous system and sense organs Medications: New levofloxacin 500 mg PO DAILY 7 tabs 0RF 7 days acetic acid 2% 5 drps otic (ear) right TID 15 mL 0RF
--- OUTSIDE RECORDS SUMMARY | 2025-07-25 14:13 | XMS_ITS | Encounter Summary ---
Author Organization [facility] Address [address] [place] [address] Phone Care Team Providers Care Colorer Machine Name Role Phone Jonatan Anthony MD Primary Care Provider [phone] Reason for Visit * Reason Comments Med Refill Encounter Details Date Type Department Care Team (Late st Contact Info) Description 08/26/2023 Refill [facility] [place], [address] [place] [address] Tyrell Oden MD [address] [place] [address] [place] [address] Social History Tobacco Use Types [...] Care Team (Late st Contact Info) Description 08/07/2025 2:45 PM EDT Clinical Support [facility] [address] [place] [address] Heather Hernandez FNP-C [address] [place] [address] documented as of this encounter Visit Diagnoses Not on filedocumented in this encounter Care Teams Colorer Machine Relationship Specialty Start Date End Date Jonatan Anthony MD [facility] [address] [facility] [place] PCP - General Internal Medicine 04/29/22 documented as of this encounter
--- OUTSIDE RECORDS SUMMARY | 2025-07-25 14:13 | XMS_ITS | Encounter Summary ---
Author Organization [facility] Address [address] [place] [address] Phone Care Team Providers Care Equipment Service Lead Name Role Phone Jonatan Anthony MD Primary Care Provider [phone] Encounter Details Date Type Department Care Team (Late Contact Info) Description 03/31/2022 Documentation Only [facility] [place], [address] [place] [address] Christopher Caicedo PA [address] [place] [address] Social History Tobacco Use Types [...] Support [facility] [address] [place] [address] Heather Hernandez FNP-C [address] [place] [address] documented as of this encounter Visit Diagnoses Not on filedocumented in this encounter Care Teams Equipment Service Lead Relationship Specialty Start Date End Date Jonatan Anthony MD [facility] [place] [address] [place] PCP - General Internal Medicine 04/29/22 documented as of this encounter
--- OUTSIDE RECORDS SUMMARY | 2025-07-25 14:13 | XMS_ITS | Encounter Summary ---
Author Organization [facility], Address [address] [place] [address] Phone Care Team Providers Care Computer Builder Name Role Phone Jonatan Anthony MD Primary Care Provider [phone] Reason for Visit * Reason Comments Med Refill Encounter Details Date Type Department Care Team (Late Contact Info) Description 08/01/2023 Refill [facility] [address] [place] [address] Christopher Caicedo PA [address] [place] [address] [place] [address] Social History Tobacco Use Types [...] Clinical Support [facility] [address] [address] Heather Hernandez FNP-C [address] [place] [address] documented as of this encounter Visit Diagnoses Not on filedocumented in this encounter Care Teams Computer Builder Relationship Specialty Start Date End Date Jonatan Anthony MD [facility] [address] [place] PCP - General Internal Medicine 04/29/22 documented as of this encounter
--- OUTSIDE RECORDS SUMMARY | 2025-07-25 14:13 | XMS_ITS | Encounter Summary ---
Author Organization [facility] Address [address] [place] [address] Phone Care Team Providers Care Tube Draw Helper Name Role Phone Jonatan Anthony MD Primary Care Provider [phone] Encounter Details Date Type Department Care Team (Special Care Hospital Contact Info) Description 05/01/2025 Documentation Only [facility] [place], [address] [place] [address] Maddy Nunez [place] [address] [place] [address] Social History Tobacco Use Types [...] Support [facility] [address] [place] [address] Heather Heranndez FNP-C [address] [place] [address] documented as of this encounter Visit Diagnoses Not on filedocumented in this encounter Care Teams Tube Draw Helper Relationship Specialty Start Date End Date Jonatan Anthony MD [facility] [place] [address] [place] PCP - General Internal Medicine 04/29/22 documented as of this encounter
--- OUTSIDE RECORDS SUMMARY | 2025-07-25 14:13 | XMS_ITS | Encounter Summary ---
Author Organization [facility], Address [address] [place] [address] Phone Care Team Providers Care Sales Commissions Analyst Name Role Phone Jonatan Anthony MD Primary Care Provider [phone] Reason for Visit * Reason Comments Med Refill Encounter Details Date Type Department Care Team (Late st Contact Info) Description 11/23/2023 Refill [facility] [address] [place] [address] Christopher Caicedo PA [address] [place] [address] [place] [address] Long-term drug therapy Social History Tobacco Use [...] Clinical Support [facility] [address] [place] [address] Heather Hernandez FNP-C [address] [place] [address] [place] [address] documented as of this encounter Visit Diagnoses Diagnosis Long-term drug therapy documented in this encounter Care Teams Sales Commissions Analyst Relationship Specialty Start Date End Date Jonatan Anthony MD [facility] [place] [address] [facility] [place] PCP - General Internal Medicine 04/29/22 documented as of this encounter
--- OUTSIDE RECORDS SUMMARY | 2025-07-25 14:13 | XMS_ITS | Encounter Summary ---
Author Organization [facility] Address [address] [place] [address] Phone Care Team Providers Care Cake Froster Name Role Phone Jonatan Anthony MD Primary Care Provider Encounter Details Date Type Department Care Team (Late Contact Info) Description 10/05/2023 Documentation Only [facility] [address] [place] [address] Tyrell Oden MD [address] [place] [address] [place] [address] Social History Tobacco Use Types [...] Support [facility] [place] [address] [place] [address] Heather Hernandez FNP-C [address] [place] [address] documented as of this encounter Visit Diagnoses Not on filedocumented in this encounter Care Teams Cake Froster Relationship Specialty Start Date End Date Jonatan Anthony MD [facility] INTERNAL [place] [address] [place] PCP - General Internal Medicine 04/29/22 documented as of this encounter
--- OUTSIDE RECORDS SUMMARY | 2025-07-25 14:13 | XMS_ITS | Encounter Summary ---
Author Organization [facility] Address [address] [place] [address] Phone Care Team Providers Care Process Safety Engineer Name Role Phone Jonatan Anthony MD Primary Care Provider [phone] Encounter Details Date Type Department Care Team (Late Contact Info) Description 09/21/2023 Documentation Only [facility] [address] [place] [address] Tyrell Oden MD [address] [place] [address] [place] [address] Social History Tobacco Use Types [...] Support [facility] [place] [address] [place] [address] Heather Hernandez FNP-C [address] [place] [place] [address] documented as of this encounter Visit Diagnoses Not on filedocumented in this encounter Care Teams Process Safety Engineer Relationship Specialty Start Date End Date Jonatan Anthony MD [facility] INTERNAL [place] [address] [place] PCP - General Internal Medicine 04/29/22 documented as of this encounter
--- OUTSIDE RECORDS SUMMARY | 2025-07-25 14:14 | XMS_ITS | Clinical Summary ---
Author Organization [employer] [facility] Address [address] [place] [address] Care Team Providers Care Music Theory Professor Name Role Phone Unavailable Primary Care Provider [...] - Td or Tdap) 01/24/2024 01/23/2014, 10/18/2007 Depression Screening 11/20/2024 Cholesterol Screening (Lipid Panel) 02/12/2025 Colorectal Cancer Screening: Colonoscopy 02/12/2025 Diabetes: Annual Urine Albumin-Creatinine Ratio (uACR) 02/12/2025 Falls Risk Assessment 02/12/2025 Hepatitis C Screening 02/12/2025 Hypertension/CHF/CAD Annual BMP Blood Test 02/12/2025 Social Influencers of Health Screening 02/12/2025 Diabetes: Blood Sugar Control Test (HGBA1C) 04/08/2025 10/09/2024, 10/09/2024, 05/01/2024 RSV Immunization Adult Patients (1 - 1-dose 75+ series) 2025 COVID-19 Vaccine ( - season) 2025 01/21/2022, 02/12/2021, 12/31/2020 Influenza Vaccine (#1) 2025 8, 09/13/2017, 09/04/2014, [...]
--- OUTSIDE RECORDS SUMMARY | 2025-07-25 14:14 | XMS_ITS | Encounter Summary ---
Author Organization [facility] Address [address] [place] [address] Phone Care Team Providers Care Pumping Station Engineer Name Role Phone Jonatan Anthony MD Primary Care Provider [phone] Reason for Visit * Reason Comments Med Refill Encounter Details Date Type Department Care Team (Late Contact Info) Description 08/27/2024 Refill [facility] [address] [place] [address] Rakesh King MD Social History Tobacco Use Types Packs/Day Years [...] Upcoming Encounters Date Type Department Care Team ([facility] Contact Info) Description 08/07/2025 2:45 PM EDT Clinical Support [facility] [place] [address] [place] [address] Heather Hernandez FNP-C [address] [place] [place] [address] documented as of this encounter Visit Diagnoses Not on filedocumented in this encounter Care Teams Pumping Station Engineer Relationship Specialty Start Date End Date Jonatan Anthony MD [place] [address] [place], [place] PCP - General Internal Medicine 04/29/22 documented as of this encounter
--- OUTSIDE RECORDS SUMMARY | 2025-07-25 14:14 | XMS_ITS | Encounter Summary ---
Author Organization [facility], Address [address] [place] [address] Phone Care Team Providers Care Survey Technician Name Role Phone Jonatan Anthony MD Primary Care Provider [phone] Reason for Visit * Reason Comments Med Refill Encounter Details Date Type Department Care Team (Late Contact Info) Description 03/01/2022 Refill [facility] [address] [place] [address] Tyrell Oden MD [address] [place] [address] [place] [address] Social History Tobacco Use Types [...] Clinical Support [facility] [address] [place] [address] Heather Hernandez FNP-C [address] [place] [address] [place] [address] documented as of this encounter Visit Diagnoses Not on filedocumented in this encounter Care Teams Survey Technician Relationship Specialty Start Date End Date Jonatan Anthony MD [facility] [address] [place] PCP - General Internal Medicine 04/29/22 documented as of this encounter
--- OUTSIDE RECORDS SUMMARY | 2025-07-25 14:14 | XMS_ITS | Encounter Summary ---
Author Organization [facility], Address [address] [place] [address] Phone Care Team Providers Care Chief Analytics Officer Name Role Phone Jonatan Anthony MD Primary Care Provider [phone] Reason for Visit * Reason Comments Med Refill Encounter Details Date Type Department Care Team (Late Contact Info) Description 04/23/2023 Refill [facility] [address] [place] [address] Tyrell Oden MD [address] [place] [address] [place] [address] Social History Tobacco Use Types [...] Clinical Support [facility] [address] [place] [address] Heather Hernandez FNP-C [address] [place] [address] [place] [address] documented as of this encounter Visit Diagnoses Not on filedocumented in this encounter Care Teams Chief Analytics Officer Relationship Specialty Start Date End Date Jonatan Anthony MD [facility] [address] [place] PCP - General Internal Medicine 04/29/22 documented as of this encounter
--- OUTSIDE RECORDS SUMMARY | 2025-07-25 14:14 | XMS_ITS | Encounter Summary ---
Author Organization [facility] Address [address] [place] [address] Phone Care Team Providers Care Building Maintenance Mechanic Name Role Phone Jonatan Anthony MD Primary Care Provider [phone] Encounter Details Date Type Department Care Team (Late Contact Info) Description 07/31/2023 Documentation Only [facility] [place], [address] [place] [address] Angie Martinez [address] [place] [address] Social History Tobacco Use Types Packs/Day Years [...] Support [facility] [place] [address] [place] [address] Heather Hernandez FNP-C [address] [place] [address] documented as of this encounter Visit Diagnoses Not on filedocumented in this encounter Care Teams Building Maintenance Mechanic Relationship Specialty Start Date End Date Jonatan Anthony MD [facility] INTERNAL [place] [address] [place], [place] PCP - General Internal Medicine 04/29/22 documented as of this encounter
--- OUTSIDE RECORDS SUMMARY | 2025-07-25 14:14 | XMS_ITS | Encounter Summary ---
Author Organization [facility], Address [address] [place] [address] Phone Care Team Providers Care Airport Security Screener Name Role Phone Jonatan Anthony MD Primary Care Provider [phone] Reason for Visit * Reason Comments Med Refill Encounter Details Date Type Department Care Team (Late Contact Info) Description 12/26/2022 Refill [facility] [address] [address] Tyrell Oden MD [address] [place] [address] [place] [address] Social History Tobacco Use Types [...] Clinical Support [facility] [address] [place] [address] Heather Hernandez FNP-C [address] [place] [address] [place] [address] documented as of this encounter Visit Diagnoses Not on filedocumented in this encounter Care Teams Airport Security Screener Relationship Specialty Start Date End Date Jonatan Anthony MD [facility] [address] [place] PCP - General Internal Medicine 04/29/22 documented as of this encounter
--- OUTSIDE RECORDS SUMMARY | 2025-07-25 14:14 | XMS_ITS | Encounter Summary ---
Author Organization [facility] Address [address] [place] [address] Phone Care Team Providers Care Grease Buffer Name Role Phone Jonatan Anthony MD Primary Care Provider [phone] Encounter Details Date Type Department Care Team ([facility] Contact Info) Description 01/06/2023 Documentation Only [facility] [place], [address] [place] [address] Essence King [place] [address] [place] [address] Social History Tobacco Use Types [...] Support [facility] [place] [address] [place] [address] Heather Hernandez FNP-C [address] [place] [address] documented as of this encounter Visit Diagnoses Not on filedocumented in this encounter Care Teams Grease Buffer Relationship Specialty Start Date End Date Jonatan Anthony MD [facility] INTERNAL [place] [address] [place] PCP - General Internal Medicine 04/29/22 documented as of this encounter
--- OUTSIDE RECORDS SUMMARY | 2025-07-25 14:14 | XMS_ITS | Encounter Summary ---
Author Organization [facility] Address [address] [place] [address] Phone Care Team Providers Care Automotive Refinish Technician Name Role Phone Jonatan Anthony MD Primary Care Provider [phone] Encounter Details Date Type Department Care Team ([facility] Contact Info) Description 10/28/2024 Documentation Only [facility] [place], [address] [place] [address] Maddy Nunez [place] [address] [place] [address] Social History Tobacco Use Types [...] Support [facility] [place] [address] [place] [address] Heather Hernandez FNP-C [address] [place] [address] documented as of this encounter Visit Diagnoses Not on filedocumented in this encounter Care Teams Automotive Refinish Technician Relationship Specialty Start Date End Date Jonatan Anthony MD [facility] [address] [place] PCP - General Internal Medicine 04/29/22 documented as of this encounter
--- OUTSIDE RECORDS SUMMARY | 2025-07-25 14:14 | XMS_ITS | Encounter Summary ---
Author Organization [facility] Address [address] [place] [address] Phone Care Team Providers Care Building Carpenter Helper Name Role Phone Jonatan Anthony MD Primary Care Provider [phone] Encounter Details Date Type Department Care Team ([facility] Contact Info) Description 08/26/2024 Documentation Only [facility] [place], [address] [place] [address] Essence King [place] [address] [place] [address] Social History Tobacco Use Types [...] Support [facility] [place] [address] [place] [address] Heather Hernandez FNP-C [address] [place] [address] documented as of this encounter Visit Diagnoses Not on filedocumented in this encounter Care Teams Building Carpenter Helper Relationship Specialty Start Date End Date Jonatan Anthony MD [facility] [place]NAL [place] [address] [place] PCP - General Internal Medicine 04/29/22 documented as of this encounter
--- OUTSIDE RECORDS SUMMARY | 2025-07-25 14:14 | XMS_ITS | Encounter Summary ---
Author Organization [facility], Address [address] [place] [address] Phone Care Team Providers Care Global Sales Director Name Role Phone Jonatan Anthony MD Primary Care Provider [phone] Reason for Visit * Reason Comments Med Refill Encounter Details Date Type Department Care Team (Late Contact Info) Description 02/24/2023 Refill [facility] [address] [place] [address] Christopher Caicedo PA [address] [place] [address] [place] [address] Social History Tobacco Use Types [...] Clinical Support [facility] [address] [place] [address] Heather Hernandez FNP-C [address] [place] [address] documented as of this encounter Visit Diagnoses Not on filedocumented in this encounter Care Teams Global Sales Director Relationship Specialty Start Date End Date Jonatan Anthony MD [facility] [address] [place] PCP - General Internal Medicine 04/29/22 documented as of this encounter
--- OUTSIDE RECORDS SUMMARY | 2025-07-25 14:14 | XMS_ITS | Encounter Summary ---
Author Organization [facility], Address [address] [place] [address] Phone Care Team Providers Care Gas Meter Repairer Name Role Phone Jonatan Anthony MD Primary Care Provider [phone] Reason for Visit * Reason Comments Med Refill Encounter Details Date Type Department Care Team (Late Contact Info) Description 06/27/2023 Refill [facility] [address] [place] [address] Christopher Caicedo PA [address] [place] [address] [place] [address] Social History Tobacco Use Types [...] Clinical Support [facility] [address] [place] [address] Heather Hernandez FNP-C [address] [place] [address] documented as of this encounter Visit Diagnoses Not on filedocumented in this encounter Care Teams Gas Meter Repairer Relationship Specialty Start Date End Date Jonatan Anthony MD [facility] [address] [place] PCP - General Internal Medicine 04/29/22 documented as of this encounter
--- OUTSIDE RECORDS SUMMARY | 2025-07-25 14:14 | XMS_ITS | Encounter Summary ---
Author Organization [facility] Address [address] [place] [address] Phone Care Team Providers Care Senior Sustainability Advisor Name Role Phone Jonatan Anthony MD Primary Care Provider Encounter Details Date Type Department Care Team ([facility] Contact Info) Description 09/17/2024 Documentation Only [facility] [place], [address] [place] [address] Maddy Nunez [place] [address] [place] [address] Social History Tobacco Use Types [...] Support [facility] [place] [address] [place] [address] Heather Hernandez FNP-C [address] [place] [address] documented as of this encounter Visit Diagnoses Not on filedocumented in this encounter Care Teams Senior Sustainability Advisor Relationship Specialty Start Date End Date Jonatan Anthony MD [facility] [place] [address] [place] PCP - General Internal Medicine 04/29/22 documented as of this encounter
--- OUTSIDE RECORDS SUMMARY | 2025-07-25 14:14 | XMS_ITS | Encounter Summary ---
Author Organization [facility] Address [address] [place] [address] Phone Care Team Providers Care Medicare Specialist Name Role Phone Jonatan Anthony MD Primary Care Provider [phone] Encounter Details Date Type Department Care Team (Late Contact Info) Description 06/13/2023 Documentation Only [facility] [place], [address] [place] [address] Christopher Caicedo PA [address] [address] Social History Tobacco Use Types [...] Support [facility] [place] [address] [place] [address] Heather Hernandez FNP-C [address] [address] documented as of this encounter Visit Diagnoses Not on filedocumented in this encounter Care Teams Medicare Specialist Relationship Specialty Start Date End Date Jonatan Anthony MD [facility] [place] [address] [place] PCP - General Internal Medicine 04/29/22 documented as of this encounter
--- OUTSIDE RECORDS SUMMARY | 2025-07-25 14:14 | XMS_ITS | Clinical Summary ---
Author Organization [facility] Address [address] [place] [address] Care Team Providers Care Ignition Expert Name Role Phone Pcp, No Primary Care [...] Health Maintenance Due Date Last Done Comments Advance Care Planning 1950 Hepatitis C Virus Screening 1950 DTaP/Tdap/Td Vaccines (1 - Tdap) 1969 Colonoscopy 1995 Pneumococcal Vaccines 50+ (1 of 1 - PCV) 2000 Zoster (Shingles) Vaccine (1 of 2) 2000 COVID-19 Vaccine (4 - season) 2024 01/21/2022, 02/12/2021, 12/31/2020 RSV Vaccine 60 years and older and Patients (1 - 1-dose 75+ series) 2025 Influenza Vaccine 06/20/2025 09/04/2014, , 01/23/2014, Additional history exists Hepatitis B Vaccines Aged Out No long er eligible based on patient's age to complete this topic Insurance MEDICARE PART A & B Care Teams Ignition Expert Relationship Specialty Start Date End Date Pcp, No [address] [place] [address] PCP - General 03/28/22
--- OUTSIDE RECORDS SUMMARY | 2025-07-25 14:14 | XMS_ITS | Encounter Summary ---
Author Organization [facility] Address [address] [place] [address] Phone Care Team Providers Care Books Binder Name Role Phone Jonatan Anthony MD Primary Care Provider [phone] Encounter Details Date Type Department Care Team ([facility] Contact Info) Description 12/27/2023 Documentation Only [facility] [address] [place] [address] Nadja Moss [address] [place] [address] Social History Tobacco Use Types [...] Support [facility] [place] [address] [place] [address] Heather Hernandez FNP-C [address] [place] [address] documented as of this encounter Visit Diagnoses Not on filedocumented in this encounter Care Teams Books Binder Relationship Specialty Start Date End Date Jonatan Anthony MD [facility] [place] [address] [place], [place] PCP - General Internal Medicine 04/29/22 documented as of this encounter
--- OUTSIDE RECORDS SUMMARY | 2025-07-25 14:14 | XMS_ITS | Clinical Summary ---
Author Organization [facility] Address [address] [place] [address] Phone Care Team Providers Care Hotel Superintendent Name Role Phone Walt Silveira MD Primary Care Provider Social History Tobacco Use Types Packs/Day Years Used Date Smoking Tobacco: Never Assessed Education Answer Date Recorded Are you interested in more education? Not on didi e 02/19/2025 Are you concerned about learning? [...] file Insurance MEDICARE PART A & B [employer] MEDEX SUPPLEMENT MEDICARE PART A & B [employer] MEDEX SUPPLEMENT MEDICARE PART A & B [employer] MEDEX SUPPLEMENT MEDICARE PART A & B [employer] MEDEX SUPPLEMENT MEDICARE PART A & B Member Subscriber Plan / Payer (Ef fective 2015-Present) Name:Maninder Pack Member ID:[id number] Relation to Subscriber:Self Name:Maninder Pack Subscriber ID:[id number] Payer ID:[id number] Group ID:Not on file Type:Medicare Address: [employer] [address] [employer] CROSS MEDEX SUPPLEMENT MEDICARE PART A & B [employer]OSS MEDEX SUPPLEMENT Care Teams Hotel Superintendent Relationship Specialty Start Date End Date Walt Silveira MD [address] [place] [address], [address] [place] [address] [email or web address] PCP - General Neurology 02/19/25 Additional Source Comments The information contained in this document represents components of the legal health record. It is not the complete legal health record.[facility]
--- OUTSIDE RECORDS SUMMARY | 2025-07-25 14:14 | XMS_ITS | Encounter Summary ---
Author Organization [facility], Address [address] [place] [address] Phone Care Team Providers Care Window Draper Name Role Phone Jonatan Anthony MD Primary Care Provider [phone] Reason for Visit * Reason Comments Med Refill Encounter Details Date Type Department Care Team (Late Contact Info) Description 06/21/2023 Refill [facility] [address] [place] [address] Tyrell Oden MD [address] [place] [address] [place] [address] Social History Tobacco Use Types [...] Clinical Support [facility] [address] [place] [address] Heather Hernandez FNP-C [address] [place] [address] [place] [address] documented as of this encounter Visit Diagnoses Not on filedocumented in this encounter Care Teams Window Draper Relationship Specialty Start Date End Date Jonatan Anthony MD [facility] [address] [place] PCP - General Internal Medicine 04/29/22 documented as of this encounter
--- OUTSIDE RECORDS SUMMARY | 2025-07-25 14:14 | XMS_ITS | Encounter Summary ---
Author Organization [facility] Address [address] [place] [address] Phone Care Team Providers Care Conference And Event Organiser Name Role Phone Jonatan Anthony MD Primary Care Provider [phone] Encounter Details Date Type Department Care Team ([facility] Contact Info) Description 08/26/2024 Documentation Only [facility] [place], [address] [place] [address] [place] [address] [place] [address] Social History Tobacco Use Types [...] Support [facility] [place] [address] [place] [address] Heather Hernandez FNP-C [address] [place] [address] documented as of this encounter Visit Diagnoses Not on filedocumented in this encounter Care Teams Conference And Event Organiser Relationship Specialty Start Date End Date Jonatan Anthony MD [facility] [place] [address] [place] PCP - General Internal Medicine 04/29/22 documented as of this encounter
--- OUTSIDE RECORDS SUMMARY | 2025-07-25 14:14 | XMS_ITS | Encounter Summary ---
Author Organization [facility] Address [address] [place] [address] Phone Care Team Providers Care Technical Support Manager Name Role Phone Jonatan Anthony MD Primary Care Provider [phone] Encounter Details Date Type Department Care Team (Late Contact Info) Description 02/09/2023 Documentation Only [facility] [place], [address] [place] [address] Christopher Caicedo PA [address] [place] [address] Social History Tobacco Use Types [...] Support [facility] [place] [address] [place] [address] Heather Hernandez FNP-C [address] [place] [address] documented as of this encounter Visit Diagnoses Not on filedocumented in this encounter Care Teams Technical Support Manager Relationship Specialty Start Date End Date Jonatan Anthony MD [facility] [place] [address] [place] PCP - General Internal Medicine 04/29/22 documented as of this encounter
--- OUTSIDE RECORDS SUMMARY | 2025-07-25 14:14 | XMS_ITS | Patient Health Record ---
Author Organization [facility] Address [address] [place] [address] Care Team Providers Care Cloud Operations Engineer Name Role Phone Jonatan Anthony Primary Care Provider Leticia Matthews Unavailable [phone] Allergies Allergen (clinical drug ingredient) Drug/Non Drug [...] Duration) Notes Start Date End Date Status Cinacalcet HCl 30 MG TAKE ONE TABLET BY MOUTH ONCE DAILY Oral; Duration: 30 Active Jardiance 10 MG TAKE 1 TAB BY MOUTH TIME EACH DAY IN THE MORNING Oral; Duration: 90 Active Envarsus XR 1 MG as directed Orally Active Extra Depth Orthopedic Shoes (1 Pair) with Customized Heat Molded Multidensity Innersoles (3 Pair) Dx: NIDDM/Polyneuropathy (E11.42), Hammertoe Foot Deformity (M20.41,M20.42), Preulcerative Skin Lesion(s) (L85.1); Duration: 365 days 07/17/2025 Active Extra Depth Orthopedic Shoes (1 Pair) with Customized Heat Molded Multidensity Innersoles (3 Pair) as directed Dx: NIDDM/Polyneuropathy (E11.42), Hammertoe Foot Deformity (M20.41,M20.42), Preulcerative Skin Lesion(s) (L85.1 Active Gabapentin 300 MG TAKE 1 CAPSULE BY MOUTH EVERY NIGHT FOR NEUROPATHY AND INSOMNIA. Oral; Duration: 30 Active Mycophenolate Sodium 360 MG Oral; Duration: 30 Z940,Unavail able Active Doxazosin Mesylate 4 MG 1 tablet Orally Once a day; Duration: 30 day(s) Active NIFEdipine ER 60 MG 1 tablet on an empty stomach Orally Once a day; Duration: 30 day(s) Active Carvedilol 25 MG 1 tablet with food Orally Twice a day; Duration: 30 day(s) Active Entecavir 0.5 MG 1 tablet on an empty stomach Orally Once a day; Duration: 10 day(s) Active Folic Acid 1 MG 1 tablet Orally Once a day; Duration: 30 day(s) Active Rosuvastatin Calcium 5 MG 1 tablet Orally Once a day; Duration: 30 day(s) Active Donepezil HCl 5 MG 1 tablet at bedtime Orally Once a day; Duration: 30 day(s) Active Allopurinol 100 MG 1 tablet Orally Once a day; Duration: 30 day(s) Active Spironolactone 25 MG TAKE 1 TABLET BY MOUTH 1 TIME EACH DAY. Oral; Duration: 90 Active Multivitamin Active Stool Softener 50mg 1x day, 100mg 2x day Active Sensipar 30 MG 1 tablet with food or after a meal Orally Once a day; Duration: 30 day(s) Active Lasix 20 MG 1 tablet Orally Once a day; Duration: 30 day(s) Active Ammonium Lactate 12 % APPLY TO AFFECTED AREA TWICE A DAY TO DRY AREAS OF SKIN ON FEET; Duration: 30 Active glipiZIDE 5 MG 1 tablet 30 minutes before breakfast Orally Once a day; Duration: 30 day(s) Not-Taking Magnesium 400 MG as directed Orally Not-Taking Extra Depth Orthopedic Shoes (1 Pair) with Customized Heat Molded Multidensity Innersoles (3 Pair) as directed Dx: NIDDM/Polyneuropathy (E11.42), Hammertoe Foot Deformity (M20.41,M20.42), Preulcerative Skin Lesion(s) (L85.1 12/11/2023 Active Extra Depth Orthopedic Shoes (1 Pair) with Customized Heat Molded Multidensity Innersoles (3 Pair) as directed Dx: NIDDM/Polyneuropathy (E11.42), Hammertoe Foot Deformity (M20.41,M20.42), Preulcerative Skin Lesion(s) (L85.1 06/13/2024 Active Tamsulosin HCl 0.4 MG Oral; Duration: 30 Days Active Night Splint AFO - L1930 1 wear when at rest; Duration: 30 days Active Immunizations Vaccine Route Administration Date Status Comme nts Influenza Unknown 07/20/2023 Administered Influenza Unknown 07/21/2024 Administered Social History Tobacco Use: Social History [...] (Standard) Question Answer Notes Tobacco use: Nonsmoker AUDIT-C (Standard) Question Answer Notes Did you have a drink containing alcohol in the p ast year? No Points 0 Interpretation Negative Problems Problem Type SNOMED Code ICD Code Onset Dates Problem Status W/U Status Risk Notes Problem Acquired hammer toe of right foot (1178783210500004 ) Other hammer toe(s) (acquired), right foot (M20.41) Active confirmed Problem Acquired hammer toe of left foot (6636507429717458 ) Other hammer toe(s) (acquired), left foot (M20.42) Active confirmed Problem Chronic kidney disease due to type 2 diabetes mellitus (377667308545) 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.22) Active confirmed Problem Polyneuropathy due to type 2 diabetes mellitus (745761440) Type 2 diabetes mellitus with diabetic polyneuropathy (E11.42) Active confirmed Vital Signs Blood pressure diastolic 60 mm Hg 07/17/2025 Height 5ft6in in 07/17/2025 Blood pressure systolic 132 mm Hg 07/17/2025 Weight 176 lbs 07/17/2025 BMI 28.4 kg/m2 07/17/2025 Procedures Procedure Date Ordered Date Performed Result Body Sit e 19460-WIMRTVS NAIL, 6 OR MORE 09/19/2024 N/A 38991-UJOY SKIN LESIONS, 2 TO 4 09/19/2024 N/A 49706-LDEEELX NAIL, 6 OR MORE 12/26/2024 N/A 12581-XKAF SKIN LESIONS, 2 TO 4 12/26/2024 N/A 49158-ZWATMTX NAIL, 6 OR MORE 03/31/2025 N/A 79799-ASBD SKIN LESIONS, 2 TO 4 03/31/2025 N/A Encounters Encounter Location Date Provider Diagnosis [address] [address] 09/19/2024 Leticia Black Type 2 diabetes mellitus [...] foot M77.51 and Metatarsalgia, right foot M77.[address] [address] 12/26/2024 Leticia Black Type 2 diabetes mellitus [...] Short Achilles tendon (acquired), left ankle M67.[address] [address] 03/31/2025 Leticia Black Type 2 diabetes mellitus [...] Short Achilles tendon (acquired), left ankle M67.02 [facility] [address] [address] 07/17/2025 Leticia Reymundo Type 2 diabetes mellitus with diabetic chronic kidney disease E11.22 ; Tinea unguium B35.1 ; Type 2 diabetes mellitus with diabetic polyneuropathy E11.42 ; Other hammer toe(s) (acquired), right foot M20.41 ; Other hammer toe(s) (acquired), left foot M20.42 and Ingrown nail L60.[address] [address] 08/19/2024 Leticia Dwyer Xerosis cutis L85.[address] [address] 01/02/2025 Leticia Dwyer [address] [address] 05/22/2025 Leticia Dwyer Assessments Encounter Date Diagnosis (ICD [...] of left lower extremity (ICD-10 - M76.62) 07/17/2025 Type 2 diabetes mellitus with diabetic chronic kidney disease (ICD-10 - E11.22) 07/17/2025 Tinea unguium (ICD-10 - B35.1) 03/31/2025 Type 2 diabetes mellitus with diabetic chronic kidney disease (ICD-10 - E11.22) 12/26/2024 Type 2 diabetes mellitus with diabetic chronic kidney disease (ICD-10 - E11.22) 09/19/2024 Tinea unguium (ICD-10 - B35.1) 09/19/2024 Pain in left foot (ICD-10 - M79.672) 12/26/2024 Tinea unguium (ICD-10 - B35.1) 03/31/2025 Tinea unguium (ICD-10 - B35.1) 07/17/2025 Type 2 diabetes mellitus with diabetic polyneuropathy (ICD-10 - E11.42) 03/31/2025 Pain in left foot (ICD-10 - M79.672) 07/17/2025 Other hammer toe(s) (acquired), left foot (ICD-10 - M20.42) 07/17/2025 Other hammer toe(s) (acquired), right foot (ICD-10 - M20.41) Patient Educated with: DIABETIC FOOT CARE INSTRUCTIONS. pdf (DIABETIC FOOT CARE INSTRUCTIONS. pdf) 12/26/2024 Pain in left foot (ICD-10 - M79.672) 09/19/2024 Pain in left ankle and joints of left foot (ICD-10 - M25.572) 09/19/2024 Bursitis of intermetatarsal bursa of left foot (ICD-10 - M77.52) 03/31/2025 Pain in left ankle and joints of left foot (ICD-10 - M25.572) 12/26/2024 Pain in left ankle and joints of left foot (ICD-10 - M25.572) 07/17/2025 Ingrown nail (ICD-10 - L60.0) 12/26/2024 Bursitis of intermetatarsal bursa of left [...] Treatment Pending Test Test Name Order Date 32085-ZQQHTQV NAIL, 6 OR MORE 09/01/2022 76972-TJBDOJV NAIL, 6 OR MORE 12/08/2022 95316-QNIULZP NAIL, 6 OR MORE 03/09/2023 00481-JSDAXLJ NAIL, 6 OR MORE 12/11/2023 80228-ZHGTDUN NAIL, 6 OR MORE 03/14/2024 37981-VROOXUG NAIL, 6 OR MORE 06/13/2024 98914-HRJBUBV NAIL, 6 OR MORE 09/19/2024 64274-OLCFIJO NAIL, 6 OR MORE 12/26/2024 24770-KNXXLLX NAIL, 6 OR MORE 03/31/2025 52592-Pnscrdac Plate 03/09/2023 44877-Myjuuiyh Plate 03/14/2024 60277-XMVE SKIN LESIONS, 2 TO 4 06/13/20 24 07474-RUYT SKIN LESIONS, 2 TO 4 12/26/19 76277-PIVX SKIN LESIONS, 2 TO 4 09/19/20 02125-UDXJ SKIN LESIONS, 2 TO 4 03/14/20 40520-PFEA SKIN LESIONS, 2 TO 4 12/11/19 09201-QADK SKIN LESIONS, 2 TO 4 03/09/20 90115-AMPP SKIN LESIONS, 2 TO 4 12/08/19 02756-VVVK SKIN LESIONS, 2 TO 4 03/31/20 Next Appt Details Provider Name:Leticia Dwyer , 09/29/2025 04:00:00 PM, [address] [place] [address], [phone], Insurance Providers Payer Name Payer Address Payer Phone Subscriber Number Group Number Insured Name Patient Relationship to Insured Coverage Start Date Coverage End Date Medicare National [facility] [employer] [address] [place] [address] [id number] [employer]inder [employer] Self - patient is the insured [employer] [address] [place] [address] [phone] [id number] 1 [employer] Self - patient is [...]
--- OUTSIDE RECORDS SUMMARY | 2025-07-25 14:14 | XMS_ITS | Encounter Summary ---
Author Organization [facility] Address [address] [place] [address] Phone Care Team Providers Care Tools Programmer Name Role Phone Jonatan Anthony MD Primary Care Provider [phone] Encounter Details Date Type Department Care Team (Late Contact Info) Description 06/13/2023 Documentation Only [facility] [place], [address] [place] [place] [address] Christopher Caicedo PA [address] [place] [address] Social History Tobacco Use Types [...] Support [facility] [place] [address] [place] [address] Heather Hernandez FNP-C [address] [place] [address] documented as of this encounter Visit Diagnoses Not on filedocumented in this encounter Care Teams Tools Programmer Relationship Specialty Start Date End Date Jonatan Anthony MD [facility] [place] [address] [place] PCP - General Internal Medicine 04/29/22 documented as of this encounter
--- OUTSIDE RECORDS SUMMARY | 2025-07-25 14:14 | XMS_ITS | Encounter Summary ---
Author Organization [facility], Address [address] [place] [address] Phone Care Team Providers Care Chief Gauger Name Role Phone Jonatan Anthony MD Primary Care Provider [phone] Reason for Visit * Reason Comments Med Refill Encounter Details Date Type Department Care Team (Late Contact Info) Description 01/31/2023 Refill [facility] [address] [place] [address] Christopher Caicedo PA [address] [place] [address] [place] [address] Social History Tobacco Use Types [...] Clinical Support [facility] [address] [place] [address] Heather Hernandez FNP-C [address] [place] [address] documented as of this encounter Visit Diagnoses Not on filedocumented in this encounter Care Teams Chief Gauger Relationship Specialty Start Date End Date Jonatan Anthony MD [facility] [address] [place] PCP - General Internal Medicine 04/29/22 documented as of this encounter
--- OUTSIDE RECORDS SUMMARY | 2025-07-25 14:14 | XMS_ITS | Clinical Summary ---
Author Organization [facility] [place], Address [address] [address] Phone Care Team Providers Care Senior Wind Energy Consultant Name Role Phone Jonatan Anthony MD Primary Care Provider [phone] Allergies Active Allergy Reactions Criticality Noted Date [...] night 30 tablet 11 09/01/20 23 Active Jardiance 10 MG tablet TAKE 1 TAB BY MOUTH TIME EACH DAY IN THE MORNING 90 tablet 3 07/19/20 24 Active allopurinol (ZYLOPRIM) 100 MG tablet Take 1 tablet (100 mg total) by mouth 1 (one) time each day 90 tablet 3 09/03/20 24 Active Belatacept 250 MG reconstituted solution Infuse 2 vials into a venous catheter every 28 (twenty-eight ) days Administer 5mg per kg; pt weight as of 09/09/24 81.5 kg 2 each 11 09/19/20 24 025 Active cinacalcet (SENSIPAR) 30 MG tablet TAKE ONE TABLET BY MOUTH EVERY MORNING AND TAKE ONE TABLET EVERY EVENING 60 tablet 11 02/14/20 25 Active lisinopril 40 MG tablet Take 1 tablet (40 mg total) by mouth 1 (one) time each day 30 tablet 02/15/20 026 Active doxazosin (CARDURA) 4 MG tablet TAKE 1 TABLET (4 MG TOTAL) BY MOUTH AT BED TIME 90 tablet 03/21/20 25 Active mycophenolate (MYFORTIC) 360 MG EC tablet Take 1 tablet (360 mg total) by mouth 1 (one) time each day in the morning 90 tablet 04/16/20 25 026 Active mycophenolate (Myfortic) 180 MG EC tablet Take 1 tablet (180 mg total) by mouth 1 (one) time each day in the evening 90 tablet 04/16/20 25 026 Active ezetimibe (Zetia) 10 MG tablet Take 1 tablet (10 mg total) by mouth 1 (one) time each day 30 tablet 04/21/20 026 Active carvedilol (COREG) 25 MG tablet TAKE 1 TABLET BY MOUTH IN THE MORNING AND 1 TABLET IN THE EVENING. 180 tablet 05/30/20 25 Active NIFEdipine XL (PROCARDIA XL) 60 MG 24 hr tablet Take 1 tablet (60 mg total) by mouth in the morning and 1 tablet (60 mg total) in the evening. Do not crush, chew, or split. 60 tablet 06/12/20 25 026 Active gabapentin (NEURONTIN) 300 MG capsule TAKE 1 CAPSULE (300 MG TOTAL) BY MOUTH EVERY NIGHT FOR NEUROPATHY AND INSOMNIA. 30 capsule 06/30/20 026 Active gabapentin (NEURONTIN) 300 MG capsule Take 1 capsule (300 mg total) by mouth every night For neuropathy and insomnia. 30 capsule 06/24/20 025 Discontinued Active Problems Problem Noted Date [...] Encounters Date Type Department Care Team Description 06/29/2025 Refill [facility] [address] [place] [address] Tyrell Oden MD 06/12/2025 3:00 PM EDT Clinical Support [facility] [place] [address] [place] [address] Heather Hernandez FNP-C Kidney replaced by transplant (Primary Dx); Stage 3b chronic kidney disease (HCC); Personal history of immunosuppression therapy; Hypertension 06/02/2025 Orders Only [facility] [address] 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 [phone] Tyrell Oden MD 05/02/2025 Telephone [facility] [address] [place] [phone] Maddy Nunez MA 05/01/2025 Documentation Only [facility] [address] [place] [phone] Maddy Nunez MA from Last 3 Months [...] Sign Reading Time Taken Comments Blood Pressure 159/61 06/12/2025 2:43 PM EDT Pulse 59 06/12/2025 2:43 PM EDT Temperature 36.6 C (97.8 F) 09/20/2023 9:50 AM EDT Respiratory Rate - - Oxygen Saturation 99% 09/20/2023 9:50 AM EDT Inhaled Oxygen Concentration - - Weight 78.9 kg (174 lb) 06/12/2025 2:43 PM EDT Height 167.6 cm (5' 6 ) 10/11/2024 9:39 AM EST Body Mass Index 28.08 10/11/2024 9:39 AM EST Plan of Treatment Upcoming Encounters Date Type Department Care Team (Late st Contact Info) Description 08/07/2025 2:45 PM EDT Clinical Support [facility] [place] [address] [place] [phone] Heather Hernandez, DIRECTOR OF [employer] [address] [place] [phone] Health Maintenance Due Date Last Done Comments Pneumococcal Vaccine: 50+ Years (3 of 3 - PCV20 or PCV21) 03/14/2017 01/17/2017, 09/12/2016, 09/07/2007 Diabetes: Ophthalmology Exam 12/20/2020 Diabetes: Pedal Pulse Checked 12/20/2020 Diabetes: Sensory Foot Exam 12/20/2020 Diabetes: Visual Foot Exam 12/20/2020 Colonoscopy (Post-Transplant Patient) 10/06/2021 Diabetes: Hemoglobin A1C 01/09/202510/09/2 024, 05/01/2024, 10/26/2023, Additional history exists Influenza Vaccine (#1) 2025 3, 08/13/2018, 09/13/2017, Additional history exists Hepatitis B Vaccine Aged Out 09/11/2000, 03/20/2000, 02/18/2000 No longer eligible based on patient's age to complete this topic Pneumococcal Vaccine: Peds (0 to 5 Years) and At-Risk Patients (6 to 49 Years) Discontinued 01/17/2017, 09/12/2016, 09/07/2007 Procedures Procedure Name Priority Date/Time Associated Diagnosis Comments BK VIRUS, QUANTITATIVE PCR, URINE Routine 06/10/2025 8:16 AM EDT BK VIRUS, DNA, QUANTITATIVE Routine 06/10/2025 8:16 AM EDT Kidney replaced by transplant Personal history of immunosuppression therapy Stage 3b chronic kidney disease (HCC) Type 2 diabetes mellitus with diabetic chronic kidney disease (HCC) Other iron deficiency anemia Other specified hypoparathyroidism (HCC) Albuminuria, not otherwise specified BK virus nephropathy BK VIRUS, DNA, URINE, QUANTITATIVE Routine 06/10/2025 8:16 AM EDT Kidney replaced by transplant Personal history of immunosuppression therapy Stage 3b chronic kidney disease (HCC) Type 2 diabetes mellitus with diabetic chronic kidney disease (HCC) Other iron deficiency anemia Other specified hypoparathyroidism (HCC) Albuminuria, not otherwise specified BK virus nephropathy URINALYSIS, COMPLETE Routine 06/10/2025 8:16 AM EDT Kidney replaced by transplant Personal history of immunosuppression therapy Stage 3b chronic kidney disease (HCC) Type 2 diabetes mellitus with diabetic chronic kidney disease (HCC) Other iron deficiency anemia Other specified hypoparathyroidism (HCC) Albuminuria, not otherwise specified BK virus nephropathy URINE ALBUMIN / CREATININE RATIO Routine 06/10/2025 8:16 AM EDT Kidney replaced by transplant Personal history of immunosuppression therapy Stage 3b chronic kidney disease (HCC) Type 2 diabetes mellitus with diabetic chronic kidney disease (HCC) Other iron deficiency anemia Other specified hypoparathyroidism (HCC) Albuminuria, not otherwise specified BK virus nephropathy PTH, INTACT Routine 06/10/2025 8:16 AM EDT Kidney replaced by transplant Personal history of immunosuppression therapy Stage 3b chronic kidney disease (HCC) Type 2 diabetes mellitus with diabetic chronic kidney disease (HCC) Other iron deficiency anemia Other specified hypoparathyroidism (HCC) Albuminuria, not otherwise specified BK virus nephropathy IRON PANEL (FE, TIBC, TSAT) Routine 06/10/2025 8:16 AM EDT Kidney replaced by transplant Personal history of immunosuppression therapy Stage 3b chronic kidney disease (HCC) Type 2 diabetes mellitus with diabetic chronic kidney disease (HCC) Other iron deficiency anemia Other specified hypoparathyroidism (HCC) Albuminuria, not otherwise specified BK virus nephropathy FERRITIN Routine 06/10/2025 8:16 AM EDT Kidney replaced by transplant Personal history of immunosuppression therapy Stage 3b chronic kidney disease (HCC) Type 2 diabetes mellitus with diabetic chronic kidney disease (HCC) Other iron deficiency anemia Other specified hypoparathyroidism (HCC) Albuminuria, not otherwise specified BK virus nephropathy CREATINE KINASE Routine 06/10/2025 8:16 AM EDT Kidney replaced by transplant Personal history of immunosuppression therapy Stage 3b chronic kidney disease (HCC) Type 2 diabetes mellitus with diabetic chronic kidney disease (HCC) Other iron deficiency anemia Other specified hypoparathyroidism (HCC) Albuminuria, not otherwise specified BK virus nephropathy ALT Routine 06/10/2025 8:16 AM EDT Kidney replaced by transplant Personal history of immunosuppression therapy Stage 3b chronic kidney disease (HCC) Type 2 diabetes mellitus with diabetic chronic kidney disease (HCC) Other iron deficiency anemia Other specified hypoparathyroidism (HCC) Albuminuria, not otherwise specified BK virus nephropathy AST Routine 06/10/2025 8:16 AM EDT Kidney replaced by transplant Personal history of immunosuppression therapy Stage 3b chronic kidney disease (HCC) Type 2 diabetes mellitus with diabetic chronic kidney disease (HCC) Other iron deficiency anemia Other specified hypoparathyroidism (HCC) Albuminuria, not otherwise specified BK virus nephropathy CBC AND DIFFERENTIAL Routine 06/10/2025 8:16 AM EDT Kidney replaced by transplant Personal history of immunosuppression therapy Stage 3b chronic kidney disease (HCC) Type 2 diabetes mellitus with diabetic chronic kidney disease (HCC) Other iron deficiency anemia Other specified hypoparathyroidism (HCC) Albuminuria, not otherwise specified BK virus nephropathy RENAL FUNCTION PANEL Routine 06/10/2025 8:16 AM EDT Kidney replaced by transplant Personal history of immunosuppression therapy Stage 3b chronic kidney disease (HCC) Type 2 diabetes mellitus with diabetic chronic kidney disease (HCC) Other iron deficiency anemia Other specified hypoparathyroidism (HCC) Albuminuria, not otherwise specified BK virus nephropathy MYCOPHENOLIC ACID AND METABO. Routine 06/10/2025 8:16 AM EDT Kidney replaced by transplant Personal history of immunosuppression therapy Stage 3b chronic kidney disease (HCC) Type 2 diabetes mellitus with diabetic chronic kidney disease (HCC) Other iron deficiency anemia Other specified hypoparathyroidism (HCC) Albuminuria, not otherwise specified BK virus nephropathy MICROSCOPIC EXAMINATION - DO NOT USE Routine 06/10/2025 8:16 AM EDT HEMOGLOBIN A1C Routine 10/09/2024 10:12 [...] Recently Relevant to Health Maintenance Results * BK Virus, Quantitative PCR, Urine (06/10/2025 8:16 AM EDT) Pathologist [facility] BKV DNA # Ur PCR 1,500,000 Negative IU/mL [facility] Comment:The linear range of the assay is 200 - 100,000,000 IU/ml log10 BK Qn PCR Ur 6.176 log10 IU/mL [facility] 06/10/2025 8:16 AM EDT 06/10/2025 Tyrell Oden MD LAB URINE ORDERABLES Final Result [facility] [employer] [facility] [address] [place] [address] * (ABNORMAL) Urinalysis, Complete w/reflex to Culture (06/10/2025 8:16 AM EDT) Specific [place], Urine 1.028 1.005 - 1.030 [facility] [phone] pH Urine 5.5 5.0 - 7.5 [facility] [phone] Color, Urine Yellow Yellow [facility] [phone] Appearance Urine Clear Clear [facility] [phone] WBC Esterase Urine Negative Negative [facility] [phone] Protein, Ur 1+(A) Negative/Tra ce [facility] [phone] Glucose, Ur 3+(A) Negative [facility] [phone] Ketones, Urine Negative Negative [facility] [phone] Blood Urine Negative Negative [facility] [phone] Bilirubin Urine Negative Negative [facility] [phone] Urobilinogen Urine 0.2 0.2 - 1.0 mg/dL [facility] [phone] Nitrite, Urine Negative Negative [facility] [phone] Microscopic Examination See below: [facility] [phone] Comment:Microscopic was shin cated and was performed. URINALYSIS REFLEX Comment [facility] [phone] Comment:This specimen will n ot reflex to a Urine Culture. Urine Urine specimen obtained by clean catch procedure / Unknown 06/10/2025 8:16 AM EDT 06/10/2025 us Tyrell Oden MD LAB URINE ORDERABLES Final Result [facility] [address] [place] [address] * Mycophenolic Acid and Metabo. (06/10/2025 8:16 AM EDT) Mycophenolic Acid 2.8 1.0 - 3.5 ug/mL [facility] Mycophenolic Acid Glucuronide 50 35 - 100 ug/mL [facility] Blood Venous blood / Unknown 06/10/2025 8:16 AM EDT 06/10/2025 Narrative [facility] - 06/13/2025 8:06 PM EDT Test(s) 045787-[id number] Acid; 207210- Mycophenolic Acid Glucuronide was developed and its performance characteristics determined by [facility]. It has not been cleared or approved by the Food and Drug Administration. Tyrell Oden MD LAB BLOOD ORDERABLES Final Result [facility] [address] [place] [address] * Microscopic Examination (06/10/2025 8:16 AM EDT) WBC, Urine 0-5 0 - 5 /hpf [facility] RBC, Urine None seen 0 - 2 /hpf [facility] Squamous Epithelial, Urine None seen 0 - 10 /hpf [facility] Casts None seen None seen /lpf [facility] Bacteria, Urine None seen None seen/Few [facility] 06/10/2025 8:16 AM EDT 06/10/2025 Tyrell Oden MD LAB MICROBIOLOGY - GENERAL ORDERABLES Final Result [facility] [address] [place] [address] * Iron Panel (Fe, TIBC, TSAT) (06/10/2025 8:16 AM EDT) TIBC 256 250 - 450 ug/dL [facility] UIBC 160 111 - 343 ug/dL [facility] Iron 96 38 - 169 ug/dL [facility] Iron Saturation (TSat) 38 15 - 55 % [facility] Blood Venous blood / Unknown 06/10/2025 8:16 AM EDT 06/10/2025 Tyrell Oden MD LAB BLOOD ORDERABLES Final Result Performing Organization Address City/State/[facility] Co de Phone Number [facility] [address] [place] [address] * (ABNORMAL) Urine Albumin / Creatinine Ratio (06/10/2025 8:16 AM EDT) Creatinine, Ur 110.9 Not Estab. mg/dL [facility] Albumin, Urine 95.1 Not Estab. ug/mL [facility] Albumin/Creatin ine Ratio 86(H) 0 - 29 mg/g creat [facility] Comment: Normal: 0 - 29 Moderately increased: 30 - 300 Severely increased: >300 Urine Urine specimen obtained by clean catch procedure / Unknown 06/10/2025 8:16 AM EDT 06/10/2025 Tyrell Oden MD LAB URINE ORDERABLES Final Result Performing Organization Address [facility] Co de Phone Number [facility] [address] [place] [address] * BK Virus Urine, Quant PCR (06/10/2025 8:16 AM EDT) Pathologist [facility] BK VIRUS PCR, QUANT, U See Final Results Negative IU/mL [facility] Comment:The linear range of the assay is 200 - 100,000,000 IU/ml Urine Urine specimen obtained by clean catch procedure / Unknown 06/10/2025 8:16 AM EDT 06/10/2025 Tyrell Oden MD LAB URINE ORDERABLES Final Result Performing Organization Address [facility] Co de Phone Number [facility] [address] [place] [address] * BK Virus DNA, Quant PCR (06/10/2025 8:16 AM EDT) Pathologist [facility] BK VIRUS DNA, PCR 48 Negative IU/mL [facility] Comment:The linear range of the assay is 22 - 100,000,000 IU/mL. log10 BK Qn PCR, Plasma or Serum 1.681 log10 IU/mL [facility] Blood Venous blood / Unknown 06/10/2025 8:16 AM EDT 06/10/2025 us Tyrell Oden MD LAB BLOOD ORDERABLES Final Result [facility] [address] [place] [address] * (ABNORMAL) CBC and Differential (06/10/2025 8:16 AM EDT) WBC 3.3(L) 3.4 - 10.8 x10E3/uL [facility] RBC 4.60 4.14 - 5.80 x10E6/uL [facility] Hemoglobin 13.8 13.0 - 17.7 g/dL [facility] Hematocrit 43.2 37.5 - 51.0 % [facility] MCV 94 79 - 97 fL [facility] MCH 30.0 26.6 - 33.0 pg [facility] MCHC 31.9 31.5 - 35.7 g/dL [facility] RDW 13.1 11.6 - 15.4 % [facility] Platelets 177 150 - 450 x10E3/uL [facility] Neutrophils Relative 45 Not Estab. % [facility] Lymphocytes Relative 35 Not Estab. % [facility] Monocytes 10 Not Estab. % [facility] Eosinophils Relative 4 Not Estab. % [facility] Basophils Relative 1 Not Estab. % [facility] Neutrophils Absolute 1.5 1.4 - 7.0 x10E3/uL [facility] Lymphocytes Absolute 1.2 0.7 - 3.1 x10E3/uL [facility] Monocytes Absolute 0.3 0.1 - 0.9 x10E3/uL [facility] Eosinophils Absolute 0.1 0.0 - 0.4 x10E3/uL [facility] Basophils Absolute 0.0 0.0 - 0.2 x10E3/uL [facility] Immature Granulocytes 5 Not Estab. % [facility] Immature Grans (Absolute) 0.2(H) 0.0 - 0.1 x10E3/uL [facility] Comment: (An elevated percentage of Immature Granulocytes has not been found to be clinically significant as a sole clinical predictor of disease. Does NOT include bands or blast cells. associated physiological leukocytosis may also show increased immature granulocytes without clinical significance.) Blood Venous blood / Unknown 06/10/2025 8:16 AM EDT 06/10/2025 Tyrell Oden MD LAB BLOOD ORDERABLES Final Result [facility] [address] [place] [address] * ALT (06/10/2025 8:16 AM EDT) ALT (SGPT) 20 0 - 44 IU/L [facility] Blood Venous blood / Unknown 06/10/2025 8:16 AM EDT 06/10/2025 Tyrell Oden MD LAB BLOOD ORDERABLES Final Result Performing Organization Address City/[facility]/ZIP Co de Phone Number [facility] [address] [place] [address] * AST (06/10/2025 8:16 AM EDT) AST (SGOT) 26 0 - 40 IU/L [facility] Blood Venous blood / Unknown 06/10/2025 8:16 AM EDT 06/10/2025 Tyrell Oden MD LAB BLOOD ORDERABLES Final Result Performing Organization Address [facility] Co de Phone Number [facility] [address] [place] [address] * (ABNORMAL) PTH, Intact (06/10/2025 8:16 AM EDT) PTH 225(H) 15 - 65 pg/mL [facility] Blood Venous blood / Unknown 06/10/2025 8:16 AM EDT 06/10/2025 Tyrell Oden MD LAB BLOOD ORDERABLES Final Result Performing Organization Address [facility] Co de Phone Number [facility] [address] [place] [address] * (ABNORMAL) Ferritin (06/10/2025 8:16 AM EDT) Ferritin 1,276(H) 30 - 400 ng/mL [facility] Blood Venous blood / Unknown 06/10/2025 8:16 AM EDT 06/10/2025 Tyrell Oden MD LAB BLOOD ORDERABLES Final Result Performing Organization Address City/[facility]/ZIP Co de Phone Number [facility] [address] [place] [address] * CK (06/10/2025 8:16 AM EDT) Pathologist [facility] Creatine Kinase (CK/CPK) 45 41 - 331 U/L [facility] Blood Venous blood / Unknown 06/10/2025 8:16 AM EDT 06/10/2025 Tyrell Oden MD LAB BLOOD ORDERABLES Final Result [facility] [address] [place] [address] * (ABNORMAL) Renal Function Panel (06/10/2025 8:16 AM EDT) Pathologist [facility] Glucose 141(H) 70 - 99 mg/dL [facility] BUN 33(H) 8 - 27 mg/dL [facility] Creatinine 1.70(H) 0.76 - 1.27 mg/dL [facility] eGFR CKD-EPI CR 2020 42(L) >59 mL/min/1.7 3 [facility] BUN/Creatinine Ratio 19 10 - 24 [facility] Sodium 141 134 - 144 mmol/L [facility] Potassium 4.2 3.5 - 5.2 mmol/L [facility] Chloride 106 96 - 106 mmol/L [facility] Bicarbonate (CO2) 20 20 - 29 mmol/L [facility] Calcium 11.0(H) 8.6 - 10.2 mg/dL [facility] Comment:Verified by repeat analysis Albumin 4.3 3.8 - 4.8 g/dL [facility] Phosphorus 2.5(L) 2.8 - 4.1 mg/dL [facility] Blood Venous blood / Unknown 06/10/2025 8:16 AM EDT 06/10/2025 us Tyrell Oden MD LAB BLOOD ORDERABLES Final Result [facility] [address] [place] [address] * (ABNORMAL) Hemoglobin A1c (10/09/2024 10:12 AM EST) Hemoglobin A1C 5.8(H) 4.8 - 5.6 % [facility] Comment: Prediabetes: 5.7 - 6.4 Diabetes: >6.4 Glycemic control for adults with diabetes: <7.0 Blood specimen (specimen) Venous blood / Unknown 10/09/2024 10:12 AM EST 10/09/2024 us Christopher THOMAS LAB BLOOD ORDERABLES Final Re sult [facility] [address] [place] [address] from Last 3 Months or Most Recently Relevant to Health Maintenance Insurance [facility] Medicare Medicare [facility] Care Teams Senior Wind Energy Consultant Relationship Specialty Start Date End Date Jonatan Anthony MD [facility] [place] [address] [place], [place] PCP - General Internal Medicine 04/29/22
--- OUTSIDE RECORDS SUMMARY | 2025-07-25 14:15 | XMS_ITS | Encounter Summary ---
Author Organization [facility] Address [address] [place] [address] Phone Care Team Providers Care Buyer Tobacco Head Name Role Phone Jonatan Anthony MD Primary Care Provider [phone] Encounter Details Date Type Department Care Team (Late Contact Info) Description 01/15/2025 Documentation Only [facility] [place], [address] [place] [address] Maddy Nunez [place] [address] [place] [address] Social History Tobacco Use Types [...] Support [facility] [address] [place] [address] Heather Hernandez FNP-C [address] [place] [address] documented as of this encounter Visit Diagnoses Not on filedocumented in this encounter Care Teams Buyer Tobacco Head Relationship Specialty Start Date End Date Jonatan Anthony MD [facility] [place] [address] [place] PCP - General Internal Medicine 04/29/22 documented as of this encounter
--- OUTSIDE RECORDS SUMMARY | 2025-07-25 14:15 | XMS_ITS | Encounter Summary ---
Author Organization [facility], Address [address] [place] [address] Phone Care Team Providers Care Irrigation Supervisor Name Role Phone Jonatan Anthony MD Primary Care Provider [phone] Reason for Visit * Reason Comments Med Refill Encounter Details Date Type Department Care Team (Late Contact Info) Description 11/18/2022 Refill [facility] [address] [place] [address] Tyrell Oden MD [address] [place] [address] [place] [address] Social History Tobacco Use Types [...] Clinical Support [facility] [address] [place] [address] Heather Hernandez FNP-C [address] [place] [address] [place] [address] documented as of this encounter Visit Diagnoses Not on filedocumented in this encounter Care Teams Irrigation Supervisor Relationship Specialty Start Date End Date Jonatan Anthony MD [facility] [address] [place] PCP - General Internal Medicine 04/29/22 documented as of this encounter
--- OUTSIDE RECORDS SUMMARY | 2025-07-25 14:15 | XMS_ITS | Encounter Summary ---
Author Organization [facility] Address [address] [place] [address] Phone Care Team Providers Care Beef Cattle Specialist Name Role Phone Jonatan Anthony MD Primary Care Provider [phone] Reason for Visit * Reason Comments Med Refill Encounter Details Date Type Department Care Team (Late Contact Info) Description 03/27/2024 Refill [facility], [address] [place] [address] Giuliano Shirley MD [address] [place] [address] Social History Tobacco Use Types [...] Support [facility] [place] [address] [place] [address] Heather Hernandez, NATURAL GAS FIELD PROCESSING SUPERVISOR-C [address] [place] [address] documented as of this encounter Visit Diagnoses Not on filedocumented in this encounter Care Teams Beef Cattle Specialist Relationship Specialty Start Date End Date Jonatan Anthony MD [facility] [address] [place] PCP - General Internal Medicine 04/29/22 documented as of this encounter
== END 2025-07-25 15:07 | disposition home or self-care (01) ==
LOC: HO.HMCH 13:45
PROVIDERS: PCP Internal Medicine
DX: H66.90 Otitis media, unspecified, unspecified ear (principal)

== ENCOUNTER → 2025-07-25 13:44 | Outpatient (BNVA) | payer MEDICARE, SELFPAY | PROVIDERS: PCP Internal Medicine | DX: H66.91 Otitis media, unspecified, right ear (principal) | CPT/HCPCS: 99212 ==

== ENCOUNTER 2025-08-04 06:43 | Outpatient (REF) | payer MEDICARE, SELFPAY ==
--- OUTSIDE RECORDS SUMMARY | 2024-07-04 06:00 | XMS_ITS ---
Author Organization [facility] Address [address] [place] [address] Care Team Providers Care Director Airport Operations Name Role Phone Jonatan Anthony Primary Care Provider Leticia Matthews [phone] REASON FOR VISIT Seen Sooner Encounters Encounter Location Date Provider Diagnosis [facility] [address] [place] [address] 07/04/2024 Leticia Dwyer Plan Of Treatment Next Appt Details Provider Name:Leticia Dwyer , 09/29/2025 04:00:00 PM, [address] [place], [address], Progress Notes * Maninder PACKDOB: [birth year] (75 yo M)Acc No.[id number]:07/04/2024 Progress Note Patient: Maninder CARVER Provider: Cindy Dwyer DPM :1950 A ge:74 Y S ex:Male Date:07/04/2024 Address:[address] [place] [address] Pcp:Jonatan Anthony Subjective: * Chief Complaints: * [...] 07/04/2024 Generated for Sven montes/Swati/Alizeitting on: 0 08/04/2025 06:46 AM EDT
--- OUTSIDE RECORDS SUMMARY | 2025-08-04 06:46 | XMS_ITS | Encounter Summary ---
Author Organization [facility] Address [address] [place] [address] Phone Care Team Providers Care Enterprise Records Analyst Name Role Phone Jonatan Anthony MD Primary Care Provider [phone] Encounter Details Date Type Department Care Team (Late Contact Info) Description 02/09/2023 Documentation Only [facility] [address] [place] [address] Christopher Caicedo PA [address] [place] [address] Social History Tobacco Use Types [...] Support [facility] [place] [address] [place] [address] Heather Hernandez FNP-C [address] [place] [address] documented as of this encounter Visit Diagnoses Not on filedocumented in this encounter Care Teams Enterprise Records Analyst Relationship Specialty Start Date End Date Jonatan Anthony MD [facility]NAL [place] [address] [place] PCP - General Internal Medicine 04/29/22 documented as of this encounter
--- OUTSIDE RECORDS SUMMARY | 2025-08-04 06:46 | XMS_ITS | Encounter Summary ---
Author Organization [facility], Address [address] [place] [address] Phone Care Team Providers Care Boil Off Machine Operator Cloth Name Role Phone Jonatan Anthony MD Primary Care Provider [phone] Reason for Visit * Reason Comments Med Refill Encounter Details Date Type Department Care Team (Late Contact Info) Description 06/21/2023 Refill [facility] [address] [place] [address] Tyrell Oden MD [address] [place] [address] [place] [address] Social History Tobacco Use [...] Clinical Support [facility] [address] [place] [address] Heather Hernandez FNP-C [address] [place] [address] [place] [address] documented as of this encounter Visit Diagnoses Not on filedocumented in this encounter Care Teams Boil Off Machine Operator Cloth Relationship Specialty Start Date End Date Jonatan Anthony MD [facility] [address] [place] PCP - General Internal Medicine 04/29/22 documented as of this encounter
--- OUTSIDE RECORDS SUMMARY | 2025-08-04 06:46 | XMS_ITS | Encounter Summary ---
Author Organization [facility] Address [address] [place] [address] Phone Care Team Providers Care Ice Cream Freezer Assistant Name Role Phone Jonatan Anthony MD Primary Care Provider [phone] Encounter Details Date Type Department Care Team ([facility] Contact Info) Description 08/26/2024 Documentation Only [facility] [place], [address] [place] [address] Essence King ID [address] [place] [address] Social History Tobacco Use Types [...] Support [facility] [place] [address] [place] [address] Heather Hernandez FNP-C [address] [place] [address] documented as of this encounter Visit Diagnoses Not on filedocumented in this encounter Care Teams Ice Cream Freezer Assistant Relationship Specialty Start Date End Date Jonatan Anthony MD [facility] [place] [address] [place] PCP - General Internal Medicine 04/29/22 documented as of this encounter
--- OUTSIDE RECORDS SUMMARY | 2025-08-04 06:46 | XMS_ITS | Encounter Summary ---
Author Organization [facility] Address [address] [place] [address] Phone Care Team Providers Care Wool Washing Machine Operator Name Role Phone Jonatan Anthony MD Primary Care Provider [phone] Encounter Details Date Type Department Care Team (Late Contact Info) Description 07/31/2023 Documentation Only [facility] [place], [address] [place] [address] Angie Martinez [address] [place] [id number] Social History Tobacco Use Types Packs/Day Years [...] Support [facility] [place] [address] [place] [address] Heather Hernandez FNP-C [address] [place] [address] documented as of this encounter Visit Diagnoses Not on filedocumented in this encounter Care Teams Wool Washing Machine Operator Relationship Specialty Start Date End Date Jonatan Anthony MD [facility] [place] [address] [place], [place] PCP - General Internal Medicine 04/29/22 documented as of this encounter
--- OUTSIDE RECORDS SUMMARY | 2025-08-04 06:46 | XMS_ITS | Encounter Summary ---
Author Organization [facility] Address [address] [place] [address] Phone Care Team Providers Care Accounting Supervisor Name Role Phone Jonatan Anthony MD Primary Care Provider [phone] Encounter Details Date Type Department Care Team (Late Contact Info) Description 01/15/2025 Documentation Only [facility] [place], [address] [place] [address] Maddy Nunez [place] [address] [place] [address] Social History Tobacco Use Types [...] Support [facility] [place] [address] [place] [address] Heather Hernandez FNP-C [address] [place] [address] documented as of this encounter Visit Diagnoses Not on filedocumented in this encounter Care Teams Accounting Supervisor Relationship Specialty Start Date End Date Jonatan Anthony MD [facility] [place] [address] [place] PCP - General Internal Medicine 04/29/22 documented as of this encounter
--- OUTSIDE RECORDS SUMMARY | 2025-08-04 06:46 | XMS_ITS | Encounter Summary ---
Author Organization [facility] Of [facility] Address [address] [place] [address] Phone Care Team Providers Care Air Conditioning Manager Name Role Phone Jonatan Anthony MD Primary Care Provider [phone] Encounter Details Date Type Department Care Team (Late Contact Info) Description 06/13/2023 Documentation Only [facility] [address] [place] [address] Christopher Caicedo PA [address] [place] [address] Social History Tobacco Use Types [...] Support [facility] [place] [address] [place] [address] Heather Hernandez FNP-C [address] [place] [address] documented as of this encounter Visit Diagnoses Not on filedocumented in this encounter Care Teams Air Conditioning Manager Relationship Specialty Start Date End Date Jonatan Anthony MD [facility] [place] [place] [address] [place] PCP - General Internal Medicine 04/29/22 documented as of this encounter
--- OUTSIDE RECORDS SUMMARY | 2025-08-04 06:46 | XMS_ITS | Encounter Summary ---
Author Organization [facility], Address [address] [place] [address] Phone Care Team Providers Care Electrical Foreman Name Role Phone Jonatan Anthony MD Primary Care Provider [phone] Reason for Visit * Reason Comments Med Refill Encounter Details Date Type Department Care Team (Late Contact Info) Description 11/18/2022 Refill [facility] [address] [place] [address] Tyrell Oden MD [address] [place] [address] [place] [address] Social History Tobacco Use Types [...] Clinical Support [facility] [address] [place] [place] [address] Heather Hernandez FNP-C [address] [place] [address] [place] [address] documented as of this encounter Visit Diagnoses Not on filedocumented in this encounter Care Teams Electrical Foreman Relationship Specialty Start Date End Date Jonatan Anthony MD [facility] [address] [place] PCP - General Internal Medicine 04/29/22 documented as of this encounter
--- OUTSIDE RECORDS SUMMARY | 2025-08-04 06:46 | XMS_ITS | Encounter Summary ---
Author Organization [facility] Of [facility] Address [address] [place] [address] Phone Care Team Providers Care Middle School Band Teacher Name Role Phone Jonatan Anthony MD Primary Care Provider [phone] Encounter Details Date Type Department Care Team ([facility] Contact Info) Description 08/26/2024 Documentation Only [facility] [place], [address] [place] [address] Essence King [place] [address] [place] [address] Social History Tobacco Use Types [...] Support [facility] [place] [address] [place] [address] Heather Hernandez FNP-C [address] [place] [address] documented as of this encounter Visit Diagnoses Not on filedocumented in this encounter Care Teams Middle School Band Teacher Relationship Specialty Start Date End Date Jonatan Anthony MD [facility] [place] [address] [place] PCP - General Internal Medicine 04/29/22 documented as of this encounter
--- OUTSIDE RECORDS SUMMARY | 2025-08-04 06:46 | XMS_ITS | Encounter Summary ---
Author Organization [facility] Of [employer] Address [address] [place] [address] Phone Care Team Providers Care Casting Technician Name Role Phone Jonatan Anthony MD Primary Care Provider [phone] Encounter Details Date Type Department Care Team ([facility] Contact Info) Description 10/28/2024 Documentation Only [facility] [place], [address] [place] [address] Maddy Nunez [place] [address] [place] [address] Social History Tobacco Use Types [...] Support [facility] [place] [address] [place] [address] Heather Hernandez FNP-C [address] [place] [address] documented as of this encounter Visit Diagnoses Not on filedocumented in this encounter Care Teams Casting Technician Relationship Specialty Start Date End Date Jonatan Anthony MD [facility] [place] [address] [place] PCP - General Internal Medicine 04/29/22 documented as of this encounter
--- OUTSIDE RECORDS SUMMARY | 2025-08-04 06:46 | XMS_ITS | Encounter Summary ---
Author Organization [facility] Address [address] [place] [address] Phone Care Team Providers Care Membership Sales Manager Name Role Phone Jonatan Anthony MD Primary Care Provider [phone] Encounter Details Date Type Department Care Team (Late Contact Info) Description 10/05/2023 Documentation Only [facility] [address] [place] [address] Tyrell Oden MD [address] [place] [address] [place] [address] Social History Tobacco Use Types [...] Support [facility] [place] [address] [place] [address] Heather Hernandez FNP-C [address] [place] [address] documented as of this encounter Visit Diagnoses Not on filedocumented in this encounter Care Teams Membership Sales Manager Relationship Specialty Start Date End Date Jonatan Anthony MD [facility] INTERNAL [place] [address] [place] PCP - General Internal Medicine 04/29/22 documented as of this encounter
--- OUTSIDE RECORDS SUMMARY | 2025-08-04 06:46 | XMS_ITS | Encounter Summary ---
Author Organization [facility] Address [address] [place] [address] Phone Care Team Providers Care Dental Laboratory Technology Teacher Name Role Phone Jonatan Anthony MD Primary Care Provider [phone] Reason for Visit * Reason Comments Med Refill Encounter Details Date Type Department Care Team (Late st Contact Info) Description 08/26/2023 Refill [facility] [place], [address] [place] [address] Tyrell dOen MD [address] [place] [address] [place] [address] Social History Tobacco Use Types [...] Support [facility] [address] [place] [address] Heather Hernandez FNP-C [address] [place] [address] documented as of this encounter Visit Diagnoses Not on filedocumented in this encounter Care Teams Dental Laboratory Technology Teacher Relationship Specialty Start Date End Date Jonatan Anthony MD [facility] [address] [facility] [place] PCP - General Internal Medicine 04/29/22 documented as of this encounter
--- OUTSIDE RECORDS SUMMARY | 2025-08-04 06:46 | XMS_ITS | Clinical Summary ---
Author Organization Assignment [facility] Address [address] [place] [address] Care Team Providers Care Fiscal Economist Name Role Phone Unavailable Primary Care Provider [...]
--- OUTSIDE RECORDS SUMMARY | 2025-08-04 06:46 | XMS_ITS | Encounter Summary ---
Author Organization [facility] Of [facility] Address [address] [place] [address] Phone Care Team Providers Care Resume Specialist Name Role Phone Jonatan Anthony MD Primary Care Provider [phone] Encounter Details Date Type Department Care Team (Late Contact Info) Description 03/31/2022 Documentation Only [facility] [place], [address] [place] [address] Christopher Caicedo PA [address] [place] [address] Social History Tobacco Use Types [...] Support [facility] [place] [address] [place] [address] Heather Hernandez FNP-C [address] [place] [address] documented as of this encounter Visit Diagnoses Not on filedocumented in this encounter Care Teams Resume Specialist Relationship Specialty Start Date End Date Jonatan Anthony MD [facility] [place] [address] [place] PCP - General Internal Medicine 04/29/22 documented as of this encounter
--- OUTSIDE RECORDS SUMMARY | 2025-08-04 06:46 | XMS_ITS | Encounter Summary ---
Author Organization [facility], Address [address] [place] [address] Phone Care Team Providers Care Dental Equipment Repairer Name Role Phone Jonatan Anthony MD Primary Care Provider [phone] Reason for Visit * Reason Comments Med Refill Encounter Details Date Type Department Care Team (Late Contact Info) Description 06/27/2023 Refill [facility] [address] [place] [address] Christopher Caicedo PA [address] [place] [address] [place] [address] Social History Tobacco Use Types [...] Clinical Support [facility] [address] [place] [address] Heather Hernandez FNP-C [address] [place] [address] documented as of this encounter Visit Diagnoses Not on filedocumented in this encounter Care Teams Dental Equipment Repairer Relationship Specialty Start Date End Date Jonatan Anthony MD [facility] [address] [place] PCP - General Internal Medicine 04/29/22 documented as of this encounter
--- OUTSIDE RECORDS SUMMARY | 2025-08-04 06:46 | XMS_ITS | Encounter Summary ---
Author Organization [facility], Address [address] [place] [address] Phone Care Team Providers Care Pulp Operator Name Role Phone Jonatan Anthony MD Primary Care Provider [phone] Reason for Visit * Reason Comments Med Refill Encounter Details Date Type Department Care Team (Late st Contact Info) Description 11/23/2023 Refill [facility] [address] [place] [address] Christopher Caicedo PA [address] [place] [address] [place] [address] Long-term drug therapy Social History Tobacco [...] Clinical Support [facility] [address] [place] [address] Heather Hernandez FNP-C [address] [place] [address] [place] [address] documented as of this encounter Visit Diagnoses Diagnosis Long-term drug therapy documented in this encounter Care Teams Pulp Operator Relationship Specialty Start Date End Date Jonatan Anthony MD [facility] [place] [address] [facility] [place] PCP - General Internal Medicine 04/29/22 documented as of this encounter
--- OUTSIDE RECORDS SUMMARY | 2025-08-04 06:46 | XMS_ITS | Encounter Summary ---
Author Organization [facility], Address [address] [place] [address] Phone Care Team Providers Care Chief Station Engineer Name Role Phone Jonatan Anthony MD Primary Care Provider [phone] Reason for Visit * Reason Comments Med Refill Encounter Details Date Type Department Care Team (Late Contact Info) Description 12/26/2022 Refill [facility] [address] [place] [address] Tyrell Oden MD [address] [place] [address] [place] [address] Social History Tobacco Use Types [...] Clinical Support [facility] [address] [place] [address] Heather Hernandez FNP-C [address] [place] [address] [place] [address] documented as of this encounter Visit Diagnoses Not on filedocumented in this encounter Care Teams Chief Station Engineer Relationship Specialty Start Date End Date Jonatan Anthony MD [facility] [address] [place] PCP - General Internal Medicine 04/29/22 documented as of this encounter
--- OUTSIDE RECORDS SUMMARY | 2025-08-04 06:46 | XMS_ITS | Encounter Summary ---
Author Organization [facility], Address [address] [place] [address] Phone Care Team Providers Care Machine Quilt Stuffer Name Role Phone Jonatan Anthony MD Primary Care Provider [phone] Reason for Visit * Reason Comments Med Refill Encounter Details Date Type Department Care Team (Late Contact Info) Description 02/24/2023 Refill [facility] [address] [place] [address] Christopher Caicedo PA [address] [place] [address] [place] [address] Social History Tobacco Use Types [...] Clinical Support [facility] [address] [place] [address] Heather Hernandez FNP-C [address] [place] [address] documented as of this encounter Visit Diagnoses Not on filedocumented in this encounter Care Teams Machine Quilt Stuffer Relationship Specialty Start Date End Date Jonatan Anthony MD [facility] [address] [place] PCP - General Internal Medicine 04/29/22 documented as of this encounter
--- OUTSIDE RECORDS SUMMARY | 2025-08-04 06:46 | XMS_ITS | Encounter Summary ---
Author Organization [facility], Address [address] [place] [address] Phone Care Team Providers Care Director Of Intelligence Name Role Phone Jonatan Anthony MD Primary Care Provider [phone] Reason for Visit * Reason Comments Med Refill Encounter Details Date Type Department Care Team (Late Contact Info) Description 01/31/2023 Refill [facility] [address] [place] [address] Christopher Caicedo PA [address] [place] [address] [place] [address] Social History Tobacco Use Types [...] Clinical Support [facility] [address] [place] [address] Heather Hernandez FNP-C [address] [place] [address] documented as of this encounter Visit Diagnoses Not on filedocumented in this encounter Care Teams Director Of Intelligence Relationship Specialty Start Date End Date Jonatan Anthony MD [facility] [address] [place] PCP - General Internal Medicine 04/29/22 documented as of this encounter
--- OUTSIDE RECORDS SUMMARY | 2025-08-04 06:46 | XMS_ITS | Encounter Summary ---
Author Organization [facility] Address [address] [facility] [address] [place] [address] Phone Care Team Providers Care Loss Prevention Investigator Name Role Phone Jonatan Anthony MD Primary Care Provider [phone] Reason for Visit * Reason Comments Med Refill Encounter Details Date Type Department Care Team (Late Contact Info) Description 08/27/2024 Refill [facility] [address] [place] [address] Rakesh King MD Social History [...] ([facility] Contact Info) Description 08/07/2025 2:45 PM EDT Clinical Support [facility] [place] [address] [place] [address] Heather Hernandez FNP-C [address] [place] [address] documented as of this encounter Visit Diagnoses Not on filedocumented in this encounter Care Teams Loss Prevention Investigator Relationship Specialty Start Date End Date Jonatan Anthony MD [place] [address] [place], [place] PCP - General Internal Medicine 04/29/22 documented as of this encounter
--- OUTSIDE RECORDS SUMMARY | 2025-08-04 06:46 | XMS_ITS | Encounter Summary ---
Author Organization [facility] Address [address] [place] [address] Phone Care Team Providers Care Swamper Name Role Phone Jonatan Anthony MD Primary Care Provider Reason for Visit * Reason Comments Med Refill Encounter Details Date Type Department Care Team (Late Contact Info) Description 03/27/2024 Refill [facility], [address] [place] [address] Giuliano Shirley MD [address] [place] [address] Social History Tobacco Use Types [...] Support [facility] [place] [address] [place] [address] Heather Hernandez, UROLOGIST MD-C [address] [place] [address] documented as of this encounter Visit Diagnoses Not on filedocumented in this encounter Care Teams Swamper Relationship Specialty Start Date End Date Jonatan Anthony MD [facility] [address] [place] PCP - General Internal Medicine 04/29/22 documented as of this encounter
--- OUTSIDE RECORDS SUMMARY | 2025-08-04 06:46 | XMS_ITS | Encounter Summary ---
Author Organization [facility] Address [address] [place] [address] Phone Care Team Providers Care Trench Digger Helper Name Role Phone Jonatan Anthony MD Primary Care Provider [phone] Encounter Details Date Type Department Care Team ([facility] Contact Info) Description 05/01/2025 Documentation Only [facility] [place], [address] [place] [address] Maddy Nunez [place] [address] [place] [address] Social History Tobacco Use Types [...] Support [facility] [place] [address] [place] [address] Heather Hernandez FNP-C [address] [place] [address] documented as of this encounter Visit Diagnoses Not on filedocumented in this encounter Care Teams Trench Digger Helper Relationship Specialty Start Date End Date Jonatan Anthony MD [facility] INTERNAL [place] [address] [place] PCP - General Internal Medicine 04/29/22 documented as of this encounter
--- OUTSIDE RECORDS SUMMARY | 2025-08-04 06:46 | XMS_ITS | Encounter Summary ---
Author Organization [facility], Address [address] [place] [address] Phone Care Team Providers Care Post Splitter Name Role Phone Jonatan Anthony MD Primary Care Provider [phone] Reason for Visit * Reason Comments Med Refill Encounter Details Date Type Department Care Team (Late Contact Info) Description 03/01/2022 Refill [facility] [address] [place] [address] Tyrell Oden MD [address] [place] [address] [place] [address] Social History Tobacco Use Types [...] Clinical Support [facility] [address] [place] [address] Heather Hernandez FNP-C [address] [place] [address] [place] [address] documented as of this encounter Visit Diagnoses Not on filedocumented in this encounter Care Teams Post Splitter Relationship Specialty Start Date End Date Jonatan Anthony MD [facility] [address] [place] PCP - General Internal Medicine 04/29/22 documented as of this encounter
--- OUTSIDE RECORDS SUMMARY | 2025-08-04 06:46 | XMS_ITS | Encounter Summary ---
Author Organization [facility], Address [address] [place] [address] Phone Care Team Providers Care Paver Installer Name Role Phone Jonatan Anthony MD Primary Care Provider [phone] Reason for Visit * Reason Comments Med Refill Encounter Details Date Type Department Care Team (Late Contact Info) Description 08/01/2023 [facility]ill [facility] [address] [place] [address] Christopher Caicedo PA [address] [place] [address] [place] [address] Social History Tobacco Use Types [...] Support [facility] [address] [place] [address] Heather Hernandez FNP-C [address] [place] [address] documented as of this encounter Visit Diagnoses Not on filedocumented in this encounter Care Teams Paver Installer Relationship Specialty Start Date End Date Jonatan Anthony MD [facility] [address] [place] PCP - General Internal Medicine 04/29/22 documented as of this encounter
--- OUTSIDE RECORDS SUMMARY | 2025-08-04 06:46 | XMS_ITS | Encounter Summary ---
Author Organization [facility] Address [address] [place] [address] Phone Care Team Providers Care Journeyman Apprentice Electricians Name Role Phone Jonatan Anthony MD Primary Care Provider [phone] Encounter Details Date Type Department Care Team ([facility] Contact Info) Description 12/27/2023 Documentation Only [facility] [address] [place] [address] Nadja Moss [address] [place] [address] Social History Tobacco Use Types [...] Support [facility] [place] [address] [place] [address] Heather Hernandez FNP-C [address] [place] [address] documented as of this encounter Visit Diagnoses Not on filedocumented in this encounter Care Teams Journeyman Apprentice Electricians Relationship Specialty Start Date End Date Jonatan Anthony MD [facility] INTERNAL [place] [address] [place], [place] PCP - General Internal Medicine 04/29/22 documented as of this encounter
--- OUTSIDE RECORDS SUMMARY | 2025-08-04 06:46 | XMS_ITS | Encounter Summary ---
Author Organization [facility] Address [address] [place] [address] Phone Care Team Providers Care Wirer Name Role Phone Jonatan Anthony MD Primary Care Provider [phone] Encounter Details Date Type Department Care Team (Late Contact Info) Description 09/21/2023 Documentation Only [facility] [address] [place] [address] Tyrell Oden MD [address] [place] [address] [place] [address] Social History Tobacco Use Types [...] Support [facility] [place] [address] [place] [address] Heather Hernandez FNP-C [address] [place] [address] documented as of this encounter Visit Diagnoses Not on filedocumented in this encounter Care Teams Wirer Relationship Specialty Start Date End Date Jonatan Anthony MD [facility] INTERNAL [place] [address] [place] PCP - General Internal Medicine 04/29/22 documented as of this encounter
--- OUTSIDE RECORDS SUMMARY | 2025-08-04 06:46 | XMS_ITS | Encounter Summary ---
Author Organization [facility], Address [address] [place] [address] Phone Care Team Providers Care Scientific Software Developer Name Role Phone Jonatan Anthony MD Primary Care Provider [phone] Reason for Visit * Reason Comments Med Refill Encounter Details Date Type Department Care Team (Late Contact Info) Description 04/23/2023 Refill [facility] [address] [place] [address] Tyrell Oden MD [address] [place] [address] [place] [address] Social History Tobacco Use Types [...] Clinical Support [facility] [address] [place] [address] Heather Hernandez FNP-C [address] [place] [address] [place] [address] documented as of this encounter Visit Diagnoses Not on filedocumented in this encounter Care Teams Scientific Software Developer Relationship Specialty Start Date End Date Jonatan Anthony MD [facility] [address] [place] PCP - General Internal Medicine 04/29/22 documented as of this encounter
--- OUTSIDE RECORDS SUMMARY | 2025-08-04 06:46 | XMS_ITS | Encounter Summary ---
Author Organization [facility] Address [address] [place] [address] Phone Care Team Providers Care Office Communication Professor Name Role Phone Jonatan Anthony MD Primary Care Provider [phone] Encounter Details Date Type Department Care Team ([facility] Contact Info) Description 01/06/2023 Documentation Only [facility] [place], [address] [place] [address] Essence King [place] [address] [place] [address] Social History Tobacco Use Types [...] Support [facility] [place] [address] [place] [address] Heather Hernandez FNP-C [address] [place] [address] documented as of this encounter Visit Diagnoses Not on filedocumented in this encounter Care Teams Office Communication Professor Relationship Specialty Start Date End Date Jonatan Anthony MD [facility] INTERNAL [place] [address] [place] PCP - General Internal Medicine 04/29/22 documented as of this encounter
--- OUTSIDE RECORDS SUMMARY | 2025-08-04 06:46 | XMS_ITS | Patient Health Record ---
Author Organization [facility] latoya [facility] Address [address] [place] [address] Care Team Providers Care Coding Quality Analyst Name Role Phone Jonatan Anthony Primary Care Provider Leticia Matthews Unavailable [phone] Allergies Allergen (clinical drug ingredient) Drug/Non Drug [...] Problem Acquired hammer toe of right foot (8912038701367537 ) Other hammer toe(s) (acquired), right foot (M20.41) Active confirmed Problem Acquired hammer toe of left foot (0760063059116711 ) Other hammer toe(s) (acquired), left foot (M20.42) Active confirmed Problem Chronic kidney disease due to type 2 diabetes mellitus (123552363009) 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.22) Active confirmed Problem Polyneuropathy due to type 2 diabetes mellitus (067487806) Type 2 diabetes mellitus with diabetic polyneuropathy (E11.42) Active confirmed Vital Signs Blood pressure diastolic 60 mm Hg 07/17/2025 Height 5ft6in in 07/17/2025 Blood pressure systolic 132 mm Hg 07/17/2025 Weight 176 lbs 07/17/2025 BMI 28.4 kg/m2 07/17/2025 Procedures Procedure Date Ordered Date Performed Result Body Sit e 42877-ZVYXDFS NAIL, 6 OR MORE 09/19/2024 N/A 61745-VZXS SKIN LESIONS, 2 TO 4 09/19/2024 N/A 13531-BSCUDTE NAIL, 6 OR MORE 12/26/2024 N/A 58148-YLTO SKIN LESIONS, 2 TO 4 12/26/2024 N/A 70814-DRPHUOB NAIL, 6 OR MORE 03/31/2025 N/A 21730-FZZY SKIN LESIONS, 2 TO 4 03/31/2025 N/A Encounters Encounter Location Date Provider Diagnosis [address] [address] 09/19/2024 Leticia Black Type 2 diabetes mellitus [...] M77.51 and Metatarsalgia, right foot M77.[address] [address] 12/26/2024 Leticia Black Type 2 diabetes mellitus [...] Achilles tendon (acquired), left ankle M67.[address] [address] 03/31/2025 Leticia Black Type 2 diabetes mellitus [...] Short Achilles tendon (acquired), left ankle M67.02 [facility] [address] [address] 07/17/2025 Leticia Reymundo Type 2 diabetes mellitus with diabetic chronic kidney disease E11.22 ; Tinea unguium B35.1 ; Type 2 diabetes mellitus with diabetic polyneuropathy E11.42 ; Other hammer toe(s) (acquired), right foot M20.41 ; Other hammer toe(s) (acquired), left foot M20.42 and Ingrown nail L60.[address] [address] 08/19/2024 Leticia Dwyer Xerosis cutis L85.[address] [address] 01/02/2025 Leticia Dwyer [address] [address] 05/22/2025 Leticia Dwyer Assessments Encounter Date Diagnosis [...] 08/19/2024 Xerosis cutis (ICD-10 - L85.3) 09/19/2024 Tinea unguium (ICD-10 - B35.1) 12/26/2024 Type 2 diabetes mellitus with diabetic chronic kidney disease (ICD-10 - E11.22) 07/17/2025 Tinea unguium (ICD-10 - B35.1) 03/31/2025 Type 2 diabetes mellitus with diabetic chronic kidney disease (ICD-10 - E11.22) 03/31/2025 Tinea unguium (ICD-10 - B35.1) 07/17/2025 Type 2 diabetes mellitus with diabetic polyneuropathy (ICD-10 - E11.42) 12/26/2024 Tinea unguium (ICD-10 - B35.1) 09/19/2024 Pain in left foot (ICD-10 - M79.672) 09/19/2024 Pain in left ankle and joints of left foot (ICD-10 - M25.572) 07/17/2025 Other hammer toe(s) (acquired), left foot (ICD-10 - M20.42) 07/17/2025 Other hammer toe(s) (acquired), right foot (ICD-10 - M20.41) Patient Educated with: DIABETIC FOOT CARE INSTRUCTIONS. pdf (DIABETIC FOOT CARE INSTRUCTIONS. pdf) 03/31/2025 Pain in left foot (ICD-10 - M79.672) 12/26/2024 Pain in left foot (ICD-10 - M79.672) 12/26/2024 Pain in left ankle and joints of left foot (ICD-10 - M25.572) 03/31/2025 Pain in left ankle and joints of left foot (ICD-10 - M25.572) 07/17/2025 Ingrown nail (ICD-10 - L60.0) 09/19/2024 Bursitis of intermetatarsal bursa of left foot (ICD-10 - M77.52) 09/19/2024 Metatarsalgia of left foot (ICD-10 - M77.42) 03/31/2025 Metatarsalgia of left foot (ICD-10 - M77.42) 12/26/2024 Bursitis of intermetatarsal bursa of left foot (ICD-10 - M77.52) 12/26/2024 Metatarsalgia of left foot (ICD-10 - M77.42) 03/31/2025 Metatarsalgia, right foot (ICD-10 - M77.41) 09/19/2024 Pain in right foot (ICD-10 - M79.671) 03/31/2025 Pain of left heel (ICD-10 - M79.672) 12/26/2024 Pain in right foot (ICD-10 - M79.671) 09/19/2024 Pain in right ankle and joints of right foot (ICD-10 - M25.571) 12/26/2024 Pain in right ankle and joints of right foot (ICD-10 - M25.571) 03/31/2025 Short Achilles tendon (acquired), left ankle (ICD-10 - M67.02) 09/19/2024 Bursitis of intermetatarsal bursa of right foot (ICD-10 - M77.51) 12/26/2024 Bursitis of intermetatarsal bursa of right [...] Treatment Pending Test Test Name Order Date [id number]-ZFEIGYZ NAIL, 6 OR MORE 12/08/2022 72645-JLFPKDO NAIL, 6 OR MORE 12/11/2023 27953-OVFSSLR NAIL, 6 OR MORE 03/31/2025 21229-EIEQQYX NAIL, 6 OR MORE 06/13/2024 05463-GEPBAMJ NAIL, 6 OR MORE 03/09/2023 83291-ZRQAKUP NAIL, 6 OR MORE 09/01/2022 70211-SWHZVUA NAIL, 6 OR MORE 12/26/2024 08269-PHMRJIX NAIL, 6 OR MORE 03/14/2024 64081-NSGAQMB NAIL, 6 OR MORE 09/19/2024 09698-Fpttwukg Plate 03/14/2024 05268-Grmxczta Plate 03/09/2023 78818-AUGN SKIN LESIONS, 2 TO 4 12/08/19 23 50435-CLNG SKIN LESIONS, 2 TO 4 12/26/19 94283-FHIQ SKIN LESIONS, 2 TO 4 09/19/20 24 53457-SPLA SKIN LESIONS, 2 TO 4 03/14/20 24 38580-GDMM SKIN LESIONS, 2 TO 4 03/09/20 23 46530-QPZC SKIN LESIONS, 2 TO 4 06/13/20 58490-NWAR SKIN LESIONS, 2 TO 4 03/31/20 86230-QRGP SKIN LESIONS, 2 TO 4 12/11/19 Next Appt Details Provider Name:Leticia Dwyer , 09/29/2025 04:00:00 PM, [address] [place] [address], [phone], Insurance Providers Payer Name Payer Address Payer Phone Subscriber Number Group Number Insured Name Patient Relationship to Insured Coverage Start Date Coverage End Date Medicare National [facility] [employer] [address] [place] [address] [id number] [employer] Self - patient is the insured [employer] [address] [place] [address] [phone] [id number] 1 [employer] Self - patient is [...]
--- OUTSIDE RECORDS SUMMARY | 2025-08-04 06:46 | XMS_ITS | Clinical Summary ---
Author Organization [facility] Address [address] [place] [address] Care Team Providers Care Flight/Transport Nurse Name Role Phone Pcp, No Primary Care [...] Zoster (Shingles) Vaccine (1 of 2) 2000 RSV Vaccine 60 years and older and Patients (1 - 1-dose 75+ series) 2025 Influenza Vaccine 06/20/2025 09/04/2014, , 01/23/2014, Additional history exists COVID-19 Vaccine (2024- season) 2025 01/21/2022, 02/12/2021, 12/31/2020 Hepatitis B Vaccines Aged Out No long er eligible based on patient's age to complete this topic Insurance MEDICARE PART A & B Care Teams Flight/Transport Nurse Relationship Specialty Start Date End Date Pcp, No [address] [place] [address] PCP - General 03/28/22
--- OUTSIDE RECORDS SUMMARY | 2025-08-04 06:46 | XMS_ITS | Encounter Summary ---
Author Organization [facility] Address [address] [place] [address] Phone Care Team Providers Care Manager Architecture Name Role Phone Jonatan Anthony MD Primary Care Provider [phone] Encounter Details Date Type Department Care Team ([facility] Contact Info) Description 09/17/2024 Documentation Only [facility] [place], [address] [place] [address] Maddy Nunez [place] [address] [place] [address] Social History Tobacco Use Types [...] Support [facility] [place] [address] [place] [address] Heather Hernandez FNP-C [address] [place] [address] documented as of this encounter Visit Diagnoses Not on filedocumented in this encounter Care Teams Manager Architecture Relationship Specialty Start Date End Date Jonatan Anthony MD [facility] [place] [address] [place] PCP - General Internal Medicine 04/29/22 documented as of this encounter
--- OUTSIDE RECORDS SUMMARY | 2025-08-04 06:46 | XMS_ITS | Clinical Summary ---
Author Organization [facility], Address [address] [place] [address] Phone Care Team Providers Care Coil Tier Name Role Phone Jonatan Anthony MD Primary Care Provider [phone] Allergies Active Allergy Reactions Criticality Noted Date [...] MORNING 90 tablet 3 07/19/20 24 Active Belatacept 250 MG reconstituted solution [...] TIME 90 tablet 3 03/21/20 25 Active mycophenolate (MYFORTIC) 360 MG [...] (one) time each day 30 tablet 04/21/20 25 026 Active carvedilol (COREG) 25 MG tablet [...] FOR NEUROPATHY AND INSOMNIA. 30 capsule 06/30/20 25 026 Active allopurinol (ZYLOPRIM) 100 MG tablet Take 1 tablet (100 mg total) by mouth 1 (one) time each day 90 tablet 3 07/28/20 25 026 Active allopurinol (ZYLOPRIM) 100 MG tablet Take 1 tablet (100 mg total) by mouth 1 (one) time each day 90 tablet 3 09/03/20 24 025 Discontinued Active Problems Problem Noted [...] Encounters Date Type Department Care Team Description 07/28/2025 Orders Only [facility], [address] [place] [address] Maddy Nunez MA Kidney replaced by transplant (Primary Dx); Stage 3b chronic kidney disease (HCC); Personal history of immunosuppression therapy; Type 2 diabetes mellitus with diabetic chronic kidney disease (HCC); Anemia in chronic kidney disease; Secondary hyperparathyroidism of renal origin (HCC); Other iron deficiency anemia; Other specified hypoparathyroidism (HCC); Albuminuria, not otherwise specified; 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 Refill [facility] [address] [place] [address] Tyrell Oden MD 06/29/2025 Refill [facility], [address] [place] [address] Tyrell Oden MD 06/12/2025 3:00 PM EDT Clinical Support [facility] [address] [place] [address] Heather Hernandez FNP-C Kidney replaced by transplant (Primary Dx); Stage 3b chronic kidney disease (HCC); Personal history of immunosuppression therapy; Hypertension 06/02/2025 Orders Only [facility] [address] [place] [address] Maddy Nunez MA Kidney replaced by transplant (Primary Dx); Personal history of immunosuppression therapy; Stage 3b chronic kidney disease (HCC); Type 2 diabetes mellitus with diabetic chronic kidney disease (HCC); Other iron deficiency anemia; Other specified hypoparathyroidism (HCC); Albuminuria, not otherwise specified; 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 Refill [facility] [address] [place] [id number] Tyrell Oden MD from Last 3 Months Immunizations Immunization Administration [...] Support [facility] [address] [place] [address] Heather Hrenandez FNP-C [address] [place] [address] [place] [address] Health Maintenance Due Date Last Done Comments Pneumococcal Vaccine: 50+ Years (3 of 3 - PCV20 or PCV21) 03/14/2017 01/17/2017, 09/12/2016, 09/07/2007 Diabetes: Ophthalmology Exam 12/20/2020 Diabetes: Pedal Pulse Checked 12/20/2020 Diabetes: Sensory Foot Exam 12/20/2020 Diabetes: Visual Foot Exam 12/20/2020 Colonoscopy (Post-Transplant Patient) 10/06/2021 Diabetes: Hemoglobin A1C 01/09/202510/09/2 024, 05/01/2024, 10/26/2023, Additional history exists Influenza Vaccine (#1) 2025 , 07/20/2023, 08/13/2018, Additional history exists Hepatitis B Vaccine Aged [...] Quantitative PCR, Urine (06/10/2025 8:16 AM EDT) BKV DNA # Ur PCR 1,500,000 Negative IU/mL [facility] Comment:The linear range of the assay is 200 - 100,000,000 IU/ml log10 BK Qn PCR Ur 6.176 log10 IU/mL [facility] ([facility]) 06/10/2025 8:16 AM EDT 06/10/2025 us Tyrell Oden MD LAB URINE ORDERABLES Final Result [email or web address] [address] [place] [address] * (ABNORMAL) Urinalysis, Complete w/reflex to Culture (06/10/2025 8:16 AM EDT) Specific [place], Urine 1.028 1.005 - 1.030 [facility] pH Urine 5.5 5.0 - 7.5 [facility] Color, Urine Yellow Yellow [facility] Appearance Urine Clear Clear [facility] [phone] WBC Esterase Urine Negative Negative [facility] Protein, Ur 1+(A) Negative/Tra ce [facility] [phone] Glucose, Ur 3+(A) Negative [facility] Ketones, Urine Negative Negative [facility] Blood Urine Negative Negative [facility] Bilirubin Urine Negative Negative [facility] [phone] Urobilinogen Urine 0.2 0.2 - 1.0 mg/dL [facility] Nitrite, Urine Negative Negative [facility] Microscopic Examination See below: [facility] Comment:Microscopic was shin cated and was performed. URINALYSIS REFLEX Comment [facility] Comment:This specimen will n ot reflex to a Urine Culture. Urine Urine specimen obtained by clean catch procedure / Unknown 06/10/2025 8:16 AM EDT 06/10/2025 us Tyrell Oden MD LAB URINE ORDERABLES Final Result [facility] [address] [place] [address] * Mycophenolic Acid and Metabo. (06/10/2025 8:16 AM EDT) Mycophenolic Acid 2.8 1.0 - 3.5 ug/mL [facility] Mycophenolic Acid Glucuronide 50 35 - 100 ug/mL [facility] Blood Venous blood / Unknown 06/10/2025 8:16 AM EDT 06/10/2025 Narrative [facility] - 06/13/2025 8:06 PM EDT Test(s) 117391-Zyvmqrvxnrfv Acid; 231763- Mycophenolic Acid Glucuronide was developed and its performance characteristics determined by [facility]. It has not been cleared or approved by the Food and Drug Administration. Tyrell Oden MD LAB BLOOD ORDERABLES Final Result [facility] [place] [address] [place] [address] * Microscopic Examination (06/10/2025 8:16 AM EDT) WBC, Urine 0-5 0 - 5 /hpf [facility] RBC, Urine None seen 0 - 2 /hpf [facility] Squamous Epithelial, Urine None seen 0 - 10 /hpf [facility] Casts None seen None seen /lpf [facility] Bacteria, Urine None seen None seen/Few [facility] 06/10/2025 8:16 AM EDT 06/10/2025 Tyrell Oden MD LAB MICROBIOLOGY - GENERAL ORDERABLES Final Result [facility] [address] [place] [address] * Iron Panel (Fe, TIBC, TSAT) (06/10/2025 8:16 AM EDT) Pathologist [facility] TIBC 256 250 - 450 ug/dL [facility] UIBC 160 111 - 343 ug/dL [facility] Iron 96 38 - 169 ug/dL [facility] Iron Saturation (TSat) 38 15 - 55 % [facility] Blood Venous blood / Unknown 06/10/2025 8:16 AM EDT 06/10/2025 Tyrell Oden MD LAB BLOOD ORDERABLES Final Result Performing Organization Address City/[facility]/ZIP Co de Phone Number [facility] [address] [place] [address] * (ABNORMAL) Urine Albumin / Creatinine Ratio (06/10/2025 8:16 AM EDT) Creatinine, Ur 110.9 Not Estab. mg/dL [facility] Albumin, Urine 95.1 Not Estab. ug/mL [facility] Albumin/Creatin ine Ratio 86(H) 0 - 29 mg/g creat [facility] Comment: Normal: 0 - 29 Moderately increased: 30 - 300 Severely increased: >300 Urine Urine specimen obtained by clean catch procedure / Unknown 06/10/2025 8:16 AM EDT 06/10/2025 Tyrell Oden MD LAB URINE ORDERABLES Final Result Performing Organization Address City/[facility]/ZIP Co de Phone Number [facility] [address] [place] [address] * BK Virus Urine, Quant PCR (06/10/2025 8:16 AM EDT) BK VIRUS PCR, QUANT, U See Final Results Negative IU/mL [facility] Comment:The linear range of the assay is 200 - 100,000,000 IU/ml Urine Urine specimen obtained by clean catch procedure / Unknown 06/10/2025 8:16 AM EDT 06/10/2025 Tyrell Oden MD LAB URINE ORDERABLES Final Result Performing Organization Address [facility]/ZIP Co de Phone Number [facility] [address] [place] [address] * BK Virus DNA, Quant PCR (06/10/2025 8:16 AM EDT) [facility] BK VIRUS DNA, PCR 48 Negative IU/mL [facility] Comment:The linear range of the assay is 22 - 100,000,000 IU/mL. log10 BK Qn PCR, Plasma or Serum 1.681 log10 IU/mL [facility] Blood Venous blood / Unknown 06/10/2025 8:16 AM EDT 06/10/2025 Tyrell Oden MD LAB BLOOD ORDERABLES Final Result Performing Organization Address [facility] de Phone Number [facility] [address] [place] [address] * (ABNORMAL) CBC and Differential (06/10/2025 8:16 AM EDT) [facility] WBC 3.3(L) 3.4 - 10.8 x10E3/uL [facility] RBC 4.60 4.14 - 5.80 x10E6/uL [facility] Hemoglobin 13.8 13.0 - 17.7 g/dL [facility] Hematocrit 43.2 37.5 - 51.0 % [facility] MCV 94 79 - 97 fL [facility] MCH 30.0 26.6 - 33.0 pg [facility] MCHC 31.9 31.5 - 35.7 g/dL [facility] RDW 13.1 11.6 - 15.4 % [facility] Platelets 177 150 - 450 x10E3/uL [facility] Neutrophils Relative 45 Not Estab. % [facility] Lymphocytes Relative 35 Not Estab. % [facility] Monocytes 10 Not Estab. % [facility] Eosinophils Relative 4 Not Estab. % [facility] Basophils Relative 1 Not Estab. % [facility] Neutrophils Absolute 1.5 1.4 - 7.0 x10E3/uL [facility] Lymphocytes Absolute 1.2 0.7 - 3.1 x10E3/uL [facility] Monocytes Absolute 0.3 0.1 - 0.9 x10E3/uL [facility] Eosinophils Absolute 0.1 0.0 - 0.4 x10E3/uL [facility] Basophils Absolute 0.0 0.0 - 0.2 x10E3/uL [facility] Immature Granulocytes 5 Not Estab. % [facility] Immature Grans (Absolute) 0.2(H) 0.0 - 0.1 x10E3/uL [facility] Comment: (An elevated percentage of Immature Granulocytes has not been found to be clinically significant as a sole clinical predictor of disease. Does NOT include bands or blast cells. associated physiological leukocytosis may also show increased immature granulocytes without clinical significance.) Blood Venous blood / Unknown 06/10/2025 8:16 AM EDT 06/10/2025 us Tyrell Oden MD LAB BLOOD ORDERABLES Final Result [facility] [address] [place] [address] * ALT (06/10/2025 8:16 AM EDT) ALT (SGPT) 20 0 - 44 IU/L [facility] Blood Venous blood / Unknown 06/10/2025 8:16 AM EDT 06/10/2025 Tyrell Oden MD LAB BLOOD ORDERABLES Final Result Performing Organization Address City/[facility]/ZIP Co de Phone Number [facility] [address] [place] [address] * AST (06/10/2025 8:16 AM EDT) AST (SGOT) 26 0 - 40 IU/L [facility] Blood Venous blood / Unknown 06/10/2025 8:16 AM EDT 06/10/2025 Tyrell Oden MD LAB BLOOD ORDERABLES Final Result Performing Organization Address [facility] Co de Phone Number [facility] [address] [place] [address] * (ABNORMAL) PTH, Intact (06/10/2025 8:16 AM EDT) PTH 225(H) 15 - 65 pg/mL [facility] Blood Venous blood / Unknown 06/10/2025 8:16 AM EDT 06/10/2025 Tyrell Oden MD LAB BLOOD ORDERABLES Final Result Performing Organization Address City/[facility] Co de Phone Number [facility] [address] [place] [address] * (ABNORMAL) Ferritin (06/10/2025 8:16 AM EDT) Ferritin 1,276(H) 30 - 400 ng/mL [facility] Blood Venous blood / Unknown 06/10/2025 8:16 AM EDT 06/10/2025 Tyrell Oden MD LAB BLOOD ORDERABLES Final Result [facility] [address] [place] [address] * CK (06/10/2025 8:16 AM EDT) Creatine Kinase (CK/CPK) 45 41 - 331 U/L [facility] Blood Venous blood / Unknown 06/10/2025 8:16 AM EDT 06/10/2025 Tyrell Oden MD LAB BLOOD ORDERABLES Final Result Performing Organization Address City/[facility]/ZIP Co de Phone Number [facility] [address] [place] [address] * (ABNORMAL) Renal Function Panel (06/10/2025 8:16 AM EDT) Glucose 141(H) 70 - 99 mg/dL [facility] BUN 33(H) 8 - 27 mg/dL [facility] Creatinine 1.70(H) 0.76 - 1.27 mg/dL [facility] eGFR CKD-EPI CR 2020 42(L) >59 mL/min/1.7 3 [facility] BUN/Creatinine Ratio 19 10 - 24 [facility] Sodium 141 134 - 144 mmol/L [facility] Potassium 4.2 3.5 - 5.2 mmol/L [facility] Chloride 106 96 - 106 mmol/L [facility] Bicarbonate (CO2) 20 20 - 29 mmol/L [facility] Calcium 11.0(H) 8.6 - 10.2 mg/dL [facility] Comment:Verified by repeat analysis Albumin 4.3 3.8 - 4.8 g/dL [facility] Phosphorus 2.5(L) 2.8 - 4.1 mg/dL [facility] Blood Venous blood / Unknown 06/10/2025 8:16 AM EDT 06/10/2025 Tyrell Oden MD LAB BLOOD ORDERABLES Final Result [facility] [address] [place] [address] * (ABNORMAL) Hemoglobin A1c (10/09/2024 10:12 AM EST) Hemoglobin A1C 5.8(H) 4.8 - 5.6 % [facility] Comment: Prediabetes: 5.7 - 6.4 Diabetes: >6.4 Glycemic control for adults with diabetes: <7.0 Blood specimen (specimen) Venous blood / Unknown 10/09/2024 10:12 AM EST 10/09/2024 Christopher THOMAS LAB BLOOD ORDERABLES Final Re sult [facility] [address] [place] [address] from Last 3 Months or Most Recently Relevant to Health Maintenance Insurance [facility] Medicare Medicare [facility] Care Teams Coil Tier Relationship Specialty Start Date End Date Jonatan Anthony MD [facility] [place] [address] [place] PCP - General Internal Medicine 04/29/22
--- OUTSIDE RECORDS SUMMARY | 2025-08-04 06:46 | XMS_ITS | Clinical Summary ---
Author Organization [facility] Address [address] [place] [phone] Phone Care Team Providers Care Outside Plant Engineer Name Role Phone Walt Silveira MD Primary [...] file Insurance MEDICARE PART A & B [employer]. MEDEX SUPPLEMENT MEDICARE PART A & B [employer]. MEDEX SUPPLEMENT MEDICARE PART A & B [employer]. MEDEX SUPPLEMENT MEDICARE PART A & B [employer]. MEDEX SUPPLEMENT MEDICARE PART A & B Member Subscriber Plan / Payer (Ef fective 2015-Present) Name:Maninder Pack Member ID:[id number] Relation to Subscriber:Self Name:Maninder Pack Subscriber ID:[id number] Payer ID:[id number] Group ID:Not on file Type:Medicare Address: [employer] [address] [employer] MEDEX SUPPLEMENT MEDICARE PART A & B [employer] MEDEX SUPPLEMENT Care Teams Outside Plant Engineer Relationship Specialty Start Date End Date Walt Silveira MD [address] [place] [address], [address] [place] [address] [email or web address] PCP - General Neurology 02/19/25 Additional Source Comments The information contained in this document represents components of the legal health record. It is not the complete legal health record.[facility]
--- OUTSIDE RECORDS SUMMARY | 2025-08-04 06:46 | XMS_ITS | Encounter Summary ---
Author Organization [facility] Address [address] [place] [address] Phone Care Team Providers Care Personalization Specialist Name Role Phone Jonatan Anthony MD Primary Care Provider [phone] Encounter Details Date Type Department Care Team (Late Contact Info) Description 06/13/2023 Documentation Only [facility] [address] [place] [address] Christopher Caicedo PA [address] [address] Social History Tobacco Use Types [...] Support [facility] [place] [address] [place] [address] Heather Hernandez FNP-C [address] [place] [address] documented as of this encounter Visit Diagnoses Not on filedocumented in this encounter Care Teams Personalization Specialist Relationship Specialty Start Date End Date Jonatan Anthony MD [facility] [address] [place] PCP - General Internal Medicine 04/29/22 documented as of this encounter
[2025-08-04 07:23] LABS: Hematocrit 36.7 % (42.0-52.0); Hemoglobin 11.6 g/dl (14.0-18.0); Mean Corpuscular HGB Conc 31.6 g/dl (31.0-36.0); Mean Corpuscular Hemoglobin 28.9 pg (27.0-33.0); Mean Corpuscular Volume 91.5 fL (80.0-98.0); NRBC Abs Auto 0.000 X10*3/uL (0.0-0.012); NRBC Pct Auto 0.0 /100WBC (0.0-0.2); Platelet Count 167 X10*3/uL (160-400); Red Blood Count 4.01 X10*6/uL (4.60-5.80); White Blood Count 3.1 X10*3/uL (4.8-10.8)
[2025-08-04 08:36] LABS: Atypical Lymph Absolute Manual 0.1 x10*3/uL; Atypical Lymphs Percent Manual 2 % (0-6); Band Neutrophils Percent 2 % (3-5); Basophils Abs Manual 0.1 X10*3/uL (0.0-0.2); Basophils Percent Manual 2 % (0-2); Eosinophils Absolute Manual 0.1 X10*3/uL (0.0-0.4); Eosinophils Percent Manual 3 % (0-4); Lymphocytes Absolute Manual 1.3 X10*3/uL (1.2-4.9); Lymphocytes Percent Manual 41 % (20-40); Metamyelocytes Percent 1 %; Monocytes Absolute Manual 0.1 X10*3/uL (0.1-1.2); Monocytes Percent Manual 2 % (2-11); Neutrophils Absolute Manual 1.5 X10*3/uL (2.0-8.3); Neutrophils Percent Manual 47 % (45-73)
[2025-08-04 08:40] LABS: RBC Morphology NORMAL; Smudge Cells PRESENT
== END 2025-08-04 06:44 | disposition home or self-care (01) ==
LOC: HO.LAB 06:43
PROVIDERS: PCP Internal Medicine; Visit Provider Internal Medicine
DX: E78.00 Pure hypercholesterolemia, unspecified (principal)
CPT/HCPCS: 36415; 85007; 85025; 85027

== ENCOUNTER 2025-08-06 08:46 | Outpatient (AMB) | payer MEDICARE, SELFPAY ==
--- OUTSIDE RECORDS SUMMARY | 2024-07-04 06:00 | XMS_ITS ---
Author Organization [facility] Address [address] [place] [address] Care Team Providers Care Comprehensive Advisor Name Role Phone Jonatan Anthony Primary Care Provider Leticia Matthews [phone] REASON FOR VISIT Seen Sooner Encounters Encounter Location Date Provider Diagnosis [facility] [address] [place] [address] 07/04/2024 Leticia Dwyer Plan Of Treatment Next Appt Details Provider Name:Leticia Dwyer , 09/29/2025 04:00:00 PM, [address] [place], [address], Progress Notes * Maninder PACKDOB: [birth year] (75 yo M)Acc No.[id number]:07/04/2024 Progress Note Patient: Maninder CARVER Provider: Cindy Dwyer DPM :1950 A ge:74 Y S ex:Male Date:07/04/2024 Address:[address] [place] [address] Pcp:Jonatan Anthony Subjective: * Chief Complaints: * [...] 07/04/2024 Generated for Sven montes/Swati/Alizeitting on: 0 08/06/2025 10:12 AM EDT
--- NOTE | 2025-08-06 08:54 | MHC.OFFVIS ---
Vital Signs 08/06/25 08:55 Height 5 ft 6 in Weight 174 lb 2.643 oz BMI 28.1 BP 127/60 Blood Pressure Location Lt brachial Position Sitting Pulse 65 Intake Visit Reasons: 1 Year Chronic HBV Intake Note: Maninder presents in the office as a 1 year follow up. CC: no concerns today! Sole Leather Cutting Machine Operator Required: No Allergies Penicillins (PENICILLINS) Allergy (Unknown, Verified 08/06/25 08:56) UNKNOWN rosuvastatin (From Crestor) Allergy (Verified 08/06/25 08:56) Muscle Pain atorvastatin (From Lipitor) Adverse Reaction (Verified 08/06/25 08:56) Muscle Pain HPI Comments Details: This is a 70-year-old gentleman with past medical history of chronic kidney disease status post kidney transplant 2020 on immunosuppression, remote hx of HCV s/p SVR in , type 2 diabetes, gout, Jehova's witness, who presents to the office for follow up Initial visit 02/06/23: Patient presents in the office with his daughter. States that for the past 6 months, he has been experiencing postprandial fullness and nausea. Occurs with any type of food he eats, even water. Describes a sensation of feeling full, and bloated. Wonders if he has fluid around his belly . No changes in appetite, but does report early satiety. No unintentional weight loss. No regurgitation, dysphagia or vomiting associated with the nausea. Initially was attributed to Sensipar, however this by decreasing the dose to half of what he used to take, is not notice any changes in his symptoms. History of cholecystectomy in his 20s. Last colonoscopy was in 2020, at [facility], prior to his renal transplant and reportedly normal. Was given a 10 year interval. No history of peptic ulcer disease. Does not take any NSAIDs. Former smoker. No family history of stomach or colon cancer. 02/16/23 EGD: Irregular Z line (biopsy) Hiatal hernia Inlet patch Normal stomach (biopsy) Duodenal polyps (biopsy) Enlarged major papilla (biopsy) Path: A.? Duodenum, biopsy:? Duodenal mucosa with preserved villi and no specific change.? B.? Duodenum, enlarged papilla, biopsy:? Duodenal mucosa with preserved villi and no specific change; no adenomatous dysplasia or carcinoma identified. C.? Duodenum, polyps:? Duodenal mucosa with polypoid gastric heterotopia; negative for adenomatous dysplasia.? D.? Stomach, random, biopsy:? Gastric antral and body mucosa with mild reactive changes and focal minimal chronic inactive inflammation; negative for H pylori, intestinal metaplasia and dysplasia. E.? Gastroesophageal junction, biopsy:? Squamocolumnar mucosa with marked hyperplastic degenerative changes and mild chronic active inflammation; negative for intestinal metaplasia and dysplasia.? 03/01/23: Today, reports persistent abd discomfort with nausea and decreased appetite. Has not started PPI therapy yet as he would like to run it by his Concrete Float Maker. No changes in BM, diarrhea or blood in stool. EGD and path results reviewed with the pt. Labs also reviewed - pertinent for resolved HBV status. HCV s/p SVR. Scheduled for upper GI series for early March. 04/19/23: UGIS reviewed: consistent with mild reflux. Started omeprazole almost 10 days ago and does notice improvement in abd discomfort and nausea however main complaint remains bloating elyssa postprandially. Not associated with change in bowel movement or appetite. 05/08/23: Pt requested to be sooner due to worsenign abd distention leading to reduced appetite and stamina. Does not think rifaximin helped. Looks sigificantly distended today compared to last visit. No fevers, chills, change in urination or BMs. Had renal bx done earlier this week. To recall US Abd 02/2023 without significant fluid. 06/19/23: Had two [place] and [place] ([facility]) - had significant hypervolumia. 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 Will be seeing Cardiology and transplant digital media designer in upcoming weeks for further eval. Diuretics now: Torsemide 60 BID Spironolactone 25 once daily 06/19/23: Reports significant decrease in weight since starting this regimen of almost 30-40 lbs since April with resultant improvement in shortness of breath, fatigue, abdominal distention and appetite. Imaging from [facility] and [facility] reviewed - no free fluid/ascitic fluid noted. Suspect most of the abd distention was likely due to gut and abd wall edema. More recently has also been experiencing significant perianal pain and discomfort- seen by Dr Elizondo, possibly has anal fissure and symptomatic hemorrhoids. Pt has not been able to take topical lidocaine or hydrocort due to very high out of pocket cost. 07/19/23: Doing well. Abd distention and pain resolved since starting diuretics as well as revision of the fistula. Appetite is back to baseline and has gained most of his weight back. Labs reviewed. 02/07/24: REports only issue is abd discomfort when he is constipated. Assoc with bloating. Has to strain often and worries about making his hernia worse due to this. Otherwise no RUQ pain, N,V. No unintentional weight changes. 08/07/24: Doing well. No GI complaints today. Constipation resolved. Labs from 01/2024 reviewed. Of note - pt has previously reported colo at [facility] in [place]. However unable to locate records based on limited access we have. 08/06/25: Here for routine 1 year follow up. Labs from March 2025 reviewed. Will need next labs in March 2026. Otherwise no GI issues. Reviewed that would recommend colo elyssa as we werent able to find records from prev colo and pt unsure if recall was 5 years or 10 years. [facility] Medical History Chronic kidney disease Influenza A Community acquired bacterial pneumonia Anal fissure Screening for prostate cancer Hypercholesterolemia Hepatitis C virus infection cured after antiviral drug therapy Obesity (BMI 30-39.9) BPH (benign prostatic hyperplasia) Pulmonary nodule, left Right patella fracture Cervical spondylosis Anemia HTN (hypertension) Kidney failure Surgical History History of esophagogastroduodenoscopy (EGD) History of renal transplant History of colonoscopy History of cholecystectomy Fistula of artery Family History Father No problems noted. Mother No problems noted. Brother No problems noted. Brother No problems noted. Social History Household Members: Spouse Housing: House Do you presently have visiting nurse or other home services: No Alcohol intake: former Comment: quit 2004 Patient Tobacco Use Status: Former Tobacco user Tobacco use type: Cigarette Years Smoked: quit 1995 e-Cigarette/Vaping Use: Never Used Second Hand Smoke Exposure: Yes Advance Directives Date on File: 02/04/21 service: No Current occupational status: retired Cognitive needs: No Hearing needs: No Vision needs: Yes Review of Systems Const All systems reviewed & are unremarkable except as noted in HPI and below Physical Exam Exam Exam: No apparent distress Nonicteric Abdomen soft, nondistended Alert and oriented x3, normal gait Vital Signs: Last Vital Signs Pulse 65 08/06/25 08:55 BP 127/60 08/06/25 08:55 BMI result Body Mass Index 28.1 Assessment & Plan Assessment & Plan (1) Hepatitis B core antibody positive: Code(s): R76.8 - Other specified abnormal immunological findings in serum Category: Medical (2) Chronic hepatitis B: Code(s): B18.1 - Chronic viral hepatitis B without delta-agent Category: Medical (3) Encounter for colorectal cancer screening: Code(s): Z12.11 - Encounter for screening for malignant neoplasm of colon; Z12.12 - Encounter for screening for malignant neoplasm of rectum Category: Medical (4) Colon cancer screening: Code(s): Z12.11 - Encounter for screening for malignant neoplasm of colon Category: Medical Plan 1. HBcAb + Ag negative however has extremely low level viremia noted on labs. No indication for restarting anti-viral tx at this time. Plan: - Repeat LFTs, INR and HBV labs March 2026 2. CRC screening Unable to find records for colo at [facility] in [place] or 2020. Pt unsure if recall was in 5 years or 10 years. Favor scheduling a colo now. Plan: - PEG prep recommended due to kidney disease - [place] to be booked on elective basis 3. Constipation Reports intermittent constipation with bloating. Takes senna for relief but that worsens cramping. Plan: - Start miralax once daily - skip for loose stools - Fiber supplementation Follow up 6 months Orders: Referrals GI Procedure Notification Z12.11 - Encounter for screening for malignant neoplasm of colon Medications: New polyethylene glycol 3350 (Miralax) 17 grams PO DAILY 238 grams 0RF peg 3350-electrolytes 236-22.74-6.74 -5.86 gram (Golytely) as per split prep instructions, until fecal effluent is clear 240 mL PO Q10M 4,000 mL 0RF colonoscopy Coding Level of Care Code Est Pt Level 4 (89407) Diagnoses Hepatitis B core antibody positive R76.8 Chronic hepatitis B B18.1 Encounter for colorectal cancer screening Z12.11; Z12.12 Colon cancer screening Z12.11
[2025-08-06 08:55] VITALS: BP 127/60; PULSE 65; BMI 28.1
--- OUTSIDE RECORDS SUMMARY | 2025-08-06 10:12 | XMS_ITS | Encounter Summary ---
Author Organization [facility] [place], Address [address] [place] [address] Phone Care Team Providers Care Viscosity Inspector Name Role Phone Jonatan Anthony MD Primary Care Provider [phone] Reason for Visit * Reason Comments Med Refill Encounter Details Date Type Department Care Team (Late st Contact Info) Description 11/23/2023 Refill [facility] [address] [place] [phone] Christopher Caicedo PA [address] [place] [phone] Long-term drug therapy Social History Tobacco Use [...] as of this encounter Plan of Treatment Not on file documented as of this encounter Visit Diagnoses Diagnosis Long-term drug therapy documented in this encounter Care Teams Viscosity Inspector Relationship Specialty Start Date End Date Jonatan Anthony MD [facility] [address] [place], [place] PCP - General Internal Medicine 04/29/22 documented as of this encounter
--- OUTSIDE RECORDS SUMMARY | 2025-08-06 10:12 | XMS_ITS | Encounter Summary ---
Author Organization [facility] Address [address] [place] [address] Phone Care Team Providers Care Garage Attendant Name Role Phone Jonatan nAthony MD Primary Care Provider [phone] Encounter Details Date Type Department Care Team (Late st Contact Info) Description 03/31/2022 Documentation Only [facility] [place], [address] [place] [phone] Christopher Caicedo, MARTHA [address] [place] [phone] Social History Tobacco Use Types Packs/Day Years [...] on filedocumented in this encounter Care Teams Garage Attendant Relationship Specialty Start Date End Date Jonatan Anthony MD [facility] [place] [address] [place], [place] PCP - General Internal Medicine 04/29/22 documented as of this encounter
--- OUTSIDE RECORDS SUMMARY | 2025-08-06 10:12 | XMS_ITS | Encounter Summary ---
Author Organization [facility] Address [address] [place] [address] Phone Care Team Providers Care Real Estate Development Manager Name Role Phone Jonatan Anthony MD Primary Care Provider [phone] Encounter Details Date Type Department Care Team (Late st Contact Info) Description 10/05/2023 Documentation Only [facility] [place], [address] [place] [address] Tyrell Oden MD [address] [place] [address] Social History Tobacco Use Types [...] on filedocumented in this encounter Care Teams Real Estate Development Manager Relationship Specialty Start Date End Date Jonatan Anthony MD [facility] [place] [address] [place], [place] PCP - General Internal Medicine 04/29/22 documented as of this encounter
--- OUTSIDE RECORDS SUMMARY | 2025-08-06 10:12 | XMS_ITS | Encounter Summary ---
Author Organization [facility] Address [address] [place] [address] Phone Care Team Providers Care Industrial Illuminating Engineer Name Role Phone Jonatan Anthony MD Primary Care Provider [phone] Encounter Details Date Type Department Care Team (Late st Contact Info) Description 09/21/2023 Documentation Only [facility] [place], [address] [place] [address] Tyrell Oden MD [address] [place] [address] Social History Tobacco Use Types [...] on filedocumented in this encounter Care Teams Industrial Illuminating Engineer Relationship Specialty Start Date End Date Jonatan Anthony MD [facility] [place] [address] [place], [place] PCP - General Internal Medicine 04/29/22 documented as of this encounter
--- OUTSIDE RECORDS SUMMARY | 2025-08-06 10:12 | XMS_ITS | Encounter Summary ---
Author Organization [facility] Address [address] [place] [address] Phone Care Team Providers Care News Clipping Cutter Name Role Phone Jonatan Anthony MD Primary Care Provider [phone] Encounter Details Date Type Department Care Team (Late st Contact Info) Description 08/04/2025 Telephone [facility] [place], [address] [place] [address] Maddy Nunez [place] [address] [place] [address] Social History Tobacco Use Types [...] on file documented as of this encounter Miscellaneous Notes * Telephone Encounter - Maddy Nunez MA - 08/04/2025 1:14 PM EDT Lm on vm letting pt know that due to a change in the schedule we have to cx the appt on 08/07 and that I will give him a call back with a follow up appt once I have one documented in this encounter Plan of Treatment Not on file documented as of this encounter Visit Diagnoses Not on filedocumented in this encounter Care Teams News Clipping Cutter Relationship Specialty Start Date End Date Jonatan Anthony MD [facility] [place] [address] [place] PCP - General Internal Medicine 04/29/22 documented as of this encounter
--- OUTSIDE RECORDS SUMMARY | 2025-08-06 10:12 | XMS_ITS | Encounter Summary ---
Author Organization [facility] [place], Address [address] [place] [address] Phone Care Team Providers Care Resource Teacher Name Role Phone Jonatan Anthony MD Primary Care Provider [phone] Reason for Visit * Reason Comments Med Refill Encounter Details Date Type Department Care Team (Late st Contact Info) Description 08/01/2023 Refill [facility] [address] [place] [phone] Christopher Caicedo PA [address] [place] [phone] Social History Tobacco Use Types Packs/Day Years [...] on filedocumented in this encounter Care Teams Resource Teacher Relationship Specialty Start Date End Date Jonatan Anthony MD [facility] [address] [place], [place] PCP - General Internal Medicine 04/29/22 documented as of this encounter
--- OUTSIDE RECORDS SUMMARY | 2025-08-06 10:12 | XMS_ITS | Encounter Summary ---
Author Organization [facility] Address [address] [place] [address] Phone Care Team Providers Care Change Control Coordinator Name Role Phone Jonatan Anthony MD Primary Care Provider [phone] Reason for Visit * Reason Comments Med Refill Encounter Details Date Type Department Care Team (Late st Contact Info) Description 08/26/2023 Refill [facility] [place], [address] [place] [address] Tyrell Oden MD [address] [place] [phone] Social History Tobacco Use Types Packs/Day Years [...] on filedocumented in this encounter Care Teams Change Control Coordinator Relationship Specialty Start Date End Date Jonatan Anthony MD [address] [place] [address] PCP - General Internal Medicine 04/29/22 documented as of this encounter
--- OUTSIDE RECORDS SUMMARY | 2025-08-06 10:12 | XMS_ITS | Encounter Summary ---
Author Organization [facility] Address [address] [place] [address] Phone Care Team Providers Care Belt Brander Name Role Phone Jonatan Anthony MD Primary Care Provider [phone] Encounter Details Date Type Department Care Team (Late st Contact Info) Description 05/01/2025 Documentation Only [facility] [place], [address] [place] [address] [place], [place] [address] [place] [phone] Social History Tobacco Use Types Packs/Day Years [...] on filedocumented in this encounter Care Teams Belt Brander Relationship Specialty Start Date End Date Jonatan Anthony MD [facility] [place] [address] [place], [place] PCP - General Internal Medicine 04/29/22 documented as of this encounter
--- OUTSIDE RECORDS SUMMARY | 2025-08-06 10:13 | XMS_ITS | Encounter Summary ---
Author Organization [facility] Address [address] [place] [address] Phone Care Team Providers Care Podiatric Foot And Ankle Specialist Name Role Phone Jonatan Anthony MD Primary Care Provider [phone] Encounter Details Date Type Department Care Team (Late st Contact Info) Description 06/13/2023 Documentation Only [facility] [place], [address] [place] [phone] Christopher Caicedo, MARTHA [address] [place] [phone] Social History Tobacco Use Types Packs/Day Years [...] on filedocumented in this encounter Care Teams Podiatric Foot And Ankle Specialist Relationship Specialty Start Date End Date Jonatan Anthony MD [facility] [place] [address] [place], [place] PCP - General Internal Medicine 04/29/22 documented as of this encounter
--- OUTSIDE RECORDS SUMMARY | 2025-08-06 10:13 | XMS_ITS | Encounter Summary ---
Author Organization [facility] Address [address] [place] [address] Phone Care Team Providers Care Spiral Binder Name Role Phone Jonatan Anthony MD Primary Care Provider [phone] Encounter Details Date Type Department Care Team (Late st Contact Info) Description 06/13/2023 Documentation Only [facility] [place], [address] [place] [phone] Christopher Caicedo, MARTHA [address] [place] [phone] Social History Tobacco Use Types Packs/Day Years [...] on filedocumented in this encounter Care Teams Spiral Binder Relationship Specialty Start Date End Date Jonatan Anthony MD [facility] [place] [address] [place], [place] PCP - General Internal Medicine 04/29/22 documented as of this encounter
--- OUTSIDE RECORDS SUMMARY | 2025-08-06 10:13 | XMS_ITS | Encounter Summary ---
Author Organization [facility] [place], Address [address] [place] [address] Phone Care Team Providers Care Call Center Director Name Role Phone Jonatan Anthony MD Primary Care Provider [phone] Reason for Visit * Reason Comments Med Refill Encounter Details Date Type Department Care Team (Late st Contact Info) Description 06/27/2023 Refill [facility] [place] [address] [place] [phone] Christopher Caicedo PA [address] [place] [phone] Social History Tobacco Use Types Packs/Day Years [...] on filedocumented in this encounter Care Teams Call Center Director Relationship Specialty Start Date End Date Jonatan Anthony MD [facility] [address] [place], [place] PCP - General Internal Medicine 04/29/22 documented as of this encounter
--- OUTSIDE RECORDS SUMMARY | 2025-08-06 10:13 | XMS_ITS | Encounter Summary ---
Author Organization [facility] Address [address] [place] [address] Phone Care Team Providers Care Algologist Name Role Phone Jonatan Anthony MD Primary Care Provider [phone] Encounter Details Date Type Department Care Team (Late st Contact Info) Description 07/31/2023 Documentation Only [facility] [place], [address] [place] [address] Angie Martinez [address] [place] [phone] Social History Tobacco Use Types Packs/Day Years [...] on filedocumented in this encounter Care Teams Algologist Relationship Specialty Start Date End Date Jonatan Anthony MD [facility] [place] [address] [place], [place] PCP - General Internal Medicine 04/29/22 documented as of this encounter
--- OUTSIDE RECORDS SUMMARY | 2025-08-06 10:13 | XMS_ITS | Encounter Summary ---
Author Organization [facility] [place], Address [address] [place] [address] Phone Care Team Providers Care Photoengraving Retoucher Name Role Phone Jonatan Anthony MD Primary Care Provider [phone] Reason for Visit * Reason Comments Med Refill Encounter Details Date Type Department Care Team (Late st Contact Info) Description 06/21/2023 Refill [facility] [place] [address] [place] [address] Tyrell Oden MD [address] [place] [address] Social History Tobacco Use Types [...] on filedocumented in this encounter Care Teams Photoengraving Retoucher Relationship Specialty Start Date End Date Jonatan Anthony MD [facility] [address] [place], [place] PCP - General Internal Medicine 04/29/22 documented as of this encounter
--- OUTSIDE RECORDS SUMMARY | 2025-08-06 10:13 | XMS_ITS | Clinical Summary ---
Author Organization [employer] [facility] Address [address] [place] [address] Care Team Providers Care Pre Sales Technical Engineer Name Role Phone Unavailable Primary Care Provider [...]
--- OUTSIDE RECORDS SUMMARY | 2025-08-06 10:13 | XMS_ITS | Encounter Summary ---
Author Organization [facility] [place], Address [address] [place] [address] Phone Care Team Providers Care Account Executive Metalworking Name Role Phone Jonatan Anthony MD Primary Care Provider [phone] Reason for Visit * Reason Comments Med Refill Encounter Details Date Type Department Care Team (Late st Contact Info) Description 03/01/2022 Refill [facility] [place] [address] [place] [address] Tyrell Oden MD [address] [place] [address] Social History Tobacco Use Types [...] on filedocumented in this encounter Care Teams Account Executive Metalworking Relationship Specialty Start Date End Date Jonatan Anthony MD [facility] [address] [place], [place] PCP - General Internal Medicine 04/29/22 documented as of this encounter
--- OUTSIDE RECORDS SUMMARY | 2025-08-06 10:13 | XMS_ITS | Encounter Summary ---
Author Organization [facility] Address [address] [place] [address] Phone Care Team Providers Care Lifter Driver Name Role Phone Jonatan Anthony MD Primary Care Provider [phone] Encounter Details Date Type Department Care Team (Late st Contact Info) Description 02/09/2023 Documentation Only [facility] [place], [address] [place] [phone] Christopher Caicedo, MARTHA [address] [place] [phone] Social History Tobacco Use Types Packs/Day Years [...] on filedocumented in this encounter Care Teams Lifter Driver Relationship Specialty Start Date End Date Jonatan Anthony MD [facility] [address] [place], [place] PCP - General Internal Medicine 04/29/22 documented as of this encounter
--- OUTSIDE RECORDS SUMMARY | 2025-08-06 10:13 | XMS_ITS | Clinical Summary ---
Author Organization [facility] [place], Address [address] [place] [address] Phone Care Team Providers Care Flight Mechanic Name Role Phone Jonatan Anthony MD Primary Care Provider [phone] Allergies Active Allergy Reactions Criticality Noted Date [...] Encounters Date Type Department Care Team Description 08/04/2025 Telephone [facility] [address] [place] [address] Maddy Nunez MA 07/28/2025 Orders Only [facility] [address] [place] [address] Maddy Nunez MA Kidney replaced by transplant [...] Refill [facility] [address] [place] [address] Tyrell Oden MD 06/29/2025 Refill [facility] [address] [place] [address] Tyrell Oden MD 06/12/2025 3:00 PM EDT Clinical Support [facility] [address] [place] [address] Zackcharles Heather, FUR FLOOR WORKER-C Kidney replaced by transplant (Primary Dx); Stage 3b chronic kidney disease (HCC); Personal history of immunosuppression therapy; Hypertension 06/02/2025 Orders Only [facility] [address] [place] [address] Maddy Nunez [place] Kidney replaced by transplant (Primary Dx); Personal history of immunosuppression therapy; Stage 3b chronic kidney disease (HCC); Type 2 diabetes mellitus with diabetic chronic kidney disease (HCC); Other iron deficiency anemia; Other specified hypoparathyroidism (HCC); Albuminuria, not otherwise specified; 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 Refill [facility] [address] [place] [address] Tyrell Oden MD from Last 3 Months [...] 10/11/2024 9:39 AM EST Plan of Treatment Health Maintenance Due Date [...] Procedure Name Priority Date/Time Associated Diagnosis Comments IMMATURE CELLS Routine 08/04/2025 9:47 AM EDT BK VIRUS, DNA, QUANTITATIVE Routine 08/04/2025 9:47 AM EDT Kidney replaced by transplant Stage 3b chronic kidney disease (HCC) Personal history of immunosuppression therapy Type 2 diabetes mellitus with diabetic chronic kidney disease (HCC) Anemia in chronic kidney disease Secondary hyperparathyroidism of renal origin (HCC) Other iron deficiency anemia Other specified hypoparathyroidism (HCC) Albuminuria, not otherwise specified BK virus nephropathy BK VIRUS, DNA, URINE, QUANTITATIVE Routine 08/04/2025 9:47 AM EDT Kidney replaced by transplant Stage 3b chronic kidney disease (HCC) Personal history of immunosuppression therapy Type 2 diabetes mellitus with diabetic chronic kidney disease (HCC) Anemia in chronic kidney disease Secondary hyperparathyroidism of renal origin (HCC) Other iron deficiency anemia Other specified hypoparathyroidism (HCC) Albuminuria, not otherwise specified BK virus nephropathy URINALYSIS, COMPLETE Routine 08/04/2025 9:47 AM EDT Kidney replaced by transplant Stage 3b chronic kidney disease (HCC) Personal history of immunosuppression therapy Type 2 diabetes mellitus with diabetic chronic kidney disease (HCC) Anemia in chronic kidney disease Secondary hyperparathyroidism of renal origin (HCC) Other iron deficiency anemia Other specified hypoparathyroidism (HCC) Albuminuria, not otherwise specified BK virus nephropathy URINE ALBUMIN / CREATININE RATIO Routine 08/04/2025 9:47 AM EDT Kidney replaced by transplant Stage 3b chronic kidney disease (HCC) Personal history of immunosuppression therapy Type 2 diabetes mellitus with diabetic chronic kidney disease (HCC) Anemia in chronic kidney disease Secondary hyperparathyroidism of renal origin (HCC) Other iron deficiency anemia Other specified hypoparathyroidism (HCC) Albuminuria, not otherwise specified BK virus nephropathy PTH, INTACT Routine 08/04/2025 9:47 AM EDT Kidney replaced by transplant Stage 3b chronic kidney disease (HCC) Personal history of immunosuppression therapy Type 2 diabetes mellitus with diabetic chronic kidney disease (HCC) Anemia in chronic kidney disease Secondary hyperparathyroidism of renal origin (HCC) Other iron deficiency anemia Other specified hypoparathyroidism (HCC) Albuminuria, not otherwise specified BK virus nephropathy IRON PANEL (FE, TIBC, TSAT) Routine 08/04/2025 9:47 AM EDT Kidney replaced by transplant Stage 3b chronic kidney disease (HCC) Personal history of immunosuppression therapy Type 2 diabetes mellitus with diabetic chronic kidney disease (HCC) Anemia in chronic kidney disease Secondary hyperparathyroidism of renal origin (HCC) Other iron deficiency anemia Other specified hypoparathyroidism (HCC) Albuminuria, not otherwise specified BK virus nephropathy FERRITIN Routine 08/04/2025 9:47 AM EDT Kidney replaced by transplant Stage 3b chronic kidney disease (HCC) Personal history of immunosuppression therapy Type 2 diabetes mellitus with diabetic chronic kidney disease (HCC) Anemia in chronic kidney disease Secondary hyperparathyroidism of renal origin (HCC) Other iron deficiency anemia Other specified hypoparathyroidism (HCC) Albuminuria, not otherwise specified BK virus nephropathy CREATINE KINASE Routine 08/04/2025 9:47 AM EDT Kidney replaced by transplant Stage 3b chronic kidney disease (HCC) Personal history of immunosuppression therapy Type 2 diabetes mellitus with diabetic chronic kidney disease (HCC) Anemia in chronic kidney disease Secondary hyperparathyroidism of renal origin (HCC) Other iron deficiency anemia Other specified hypoparathyroidism (HCC) Albuminuria, not otherwise specified BK virus nephropathy ALT Routine 08/04/2025 9:47 AM EDT Kidney replaced by transplant Stage 3b chronic kidney disease (HCC) Personal history of immunosuppression therapy Type 2 diabetes mellitus with diabetic chronic kidney disease (HCC) Anemia in chronic kidney disease Secondary hyperparathyroidism of renal origin (HCC) Other iron deficiency anemia Other specified hypoparathyroidism (HCC) Albuminuria, not otherwise specified BK virus nephropathy AST Routine 08/04/2025 9:47 AM EDT Kidney replaced by transplant Stage 3b chronic kidney disease (HCC) Personal history of immunosuppression therapy Type 2 diabetes mellitus with diabetic chronic kidney disease (HCC) Anemia in chronic kidney disease Secondary hyperparathyroidism of renal origin (HCC) Other iron deficiency anemia Other specified hypoparathyroidism (HCC) Albuminuria, not otherwise specified BK virus nephropathy CBC AND DIFFERENTIAL Routine 08/04/2025 9:47 AM EDT Kidney replaced by transplant Stage 3b chronic kidney disease (HCC) Personal history of immunosuppression therapy Type 2 diabetes mellitus with diabetic chronic kidney disease (HCC) Anemia in chronic kidney disease Secondary hyperparathyroidism of renal origin (HCC) Other iron deficiency anemia Other specified hypoparathyroidism (HCC) Albuminuria, not otherwise specified BK virus nephropathy RENAL FUNCTION PANEL Routine 08/04/2025 9:47 AM EDT Kidney replaced by transplant Stage 3b chronic kidney disease (HCC) Personal history of immunosuppression therapy Type 2 diabetes mellitus with diabetic chronic kidney disease (HCC) Anemia in chronic kidney disease Secondary hyperparathyroidism of renal origin (HCC) Other iron deficiency anemia Other specified hypoparathyroidism (HCC) Albuminuria, not otherwise specified BK virus nephropathy MYCOPHENOLIC ACID AND METABO. Routine 08/04/2025 9:47 AM EDT Kidney replaced by transplant Stage 3b chronic kidney disease (HCC) Personal history of immunosuppression therapy Type 2 diabetes mellitus with diabetic chronic kidney disease (HCC) Anemia in chronic kidney disease Secondary hyperparathyroidism of renal origin (HCC) Other iron deficiency anemia Other specified hypoparathyroidism (HCC) Albuminuria, not otherwise specified BK virus nephropathy MICROSCOPIC EXAMINATION - DO NOT USE Routine 08/04/2025 9:47 AM EDT BK VIRUS, QUANTITATIVE PCR, URINE Routine 06/10/2025 [...] Relevant to Health Maintenance Results * (ABNORMAL) Immature Cells (08/04/2025 9:47 AM EDT) Myelocytes Relative 3(H) 0 - 0 % [facility] 08/04/2025 9:47 AM EDT 08/04/2025 us Tyrell Oden MD LAB BLOOD ORDERABLES Final Result [facility] [address] [place] [address] * (ABNORMAL) Urinalysis, Complete w/reflex to Culture (08/04/2025 9:47 AM EDT) Only the most recent of2 resultswithin the time period is included. Specific [place], Urine 1.026 1.005 - 1.030 [facility] pH Urine 5.5 5.0 - 7.5 [facility] Color, Urine Yellow Yellow [facility] Appearance Urine Clear Clear [facility] [place] [phone] WBC Esterase Urine Negative Negative [facility] Protein, Ur 1+(A) Negative/Tra ce [facility] [phone] Glucose, Ur 3+(A) Negative [facility] [phone] Ketones, Urine Negative Negative [facility] Blood Urine Negative Negative [facility] Bilirubin Urine Negative Negative [facility] Urobilinogen Urine 0.2 0.2 - 1.0 mg/dL [facility] Nitrite, Urine Negative Negative [facility] [phone] Microscopic Examination See below: [facility] Comment:Microscopic was shin cated and was performed. URINALYSIS REFLEX Comment [facility] [phone] Comment:This specimen will n ot reflex to a Urine Culture. Urine Urine specimen obtained by clean catch procedure / Unknown 08/04/2025 9:47 AM EDT 08/04/2025 Tyrell Oden MD LAB URINE ORDERABLES Final Result Performing Organization Address City/[facility]/ZIP Co de Phone Number [facility] [address] [place] [address] * Microscopic Examination (08/04/2025 9:47 AM EDT) Only the most recent of2 resultswithin the time period is included. WBC, Urine None seen 0 - 5 /hpf [facility] RBC, Urine None seen 0 - 2 /hpf [facility] Squamous Epithelial, Urine None seen 0 - 10 /hpf [facility] Casts None seen None seen /lpf [facility] Bacteria, Urine None seen None seen/Few [facility] 08/04/2025 9:47 AM EDT 08/04/2025 Tyrell Oden MD LAB MICROBIOLOGY - GENERAL ORDERABLES Final Result Performing Organization Address [facility] Co de Phone Number [facility] [address] [place] [address] * (ABNORMAL) Iron Panel (Fe, TIBC, TSAT) (08/04/2025 9:47 AM EDT) Only the most recent of2 resultswithin the time period is included. Iron 90 38 - 169 ug/dL [facility] TIBC 232(L) 250 - 450 ug/dL [facility] UIBC 142 111 - 343 ug/dL [facility] Iron Saturation (TSat) 39 15 - 55 % [facility] Blood Venous blood / Unknown 08/04/2025 9:47 AM EDT 08/04/2025 Tyrell Oden MD LAB BLOOD ORDERABLES Final Result Performing Organization Address City/[facility]/ZIP Co de Phone Number [facility] [place] [address] [place] [address] * (ABNORMAL) Urine Albumin / Creatinine Ratio (08/04/2025 9:47 AM EDT) Only the most recent of2 resultswithin the time period is included. Creatinine, Ur 99.4 Not Estab. mg/dL [facility] Albumin, Urine 75.4 Not Estab. ug/mL [facility] Albumin/Creatin ine Ratio 76(H) 0 - 29 mg/g creat [facility] Comment: Normal: 0 - 29 Moderately increased: 30 - 300 Severely increased: >300 Urine Urine specimen obtained by clean catch procedure / Unknown 08/04/2025 9:47 AM EDT 08/04/2025 Tyrell Oden MD LAB URINE ORDERABLES Final Result Performing Organization Address City/[facility]/ZIP Co de Phone Number [employer] [facility] [place] [address] [place] [address] * BK Virus Urine, Quant PCR (08/04/2025 9:47 AM EDT) Only the most recent of2 resultswithin the time period is included. BK VIRUS PCR, QUANT, U 754,000 Negative IU/mL [facility] Comment:The linear range of the assay is 200 - 100,000,000 IU/ml log10 BK Qn PCR Ur 5.877 log10 IU/mL [facility] Urine Urine specimen obtained by clean catch procedure / Unknown 08/04/2025 9:47 AM EDT 08/04/2025 Tyrell Oden MD LAB URINE ORDERABLES Final Result Performing Organization Address City/[facility]/ZIP Co de Phone Number [facility] [address] [place] [address] * BK Virus DNA, Quant PCR (08/04/2025 9:47 AM EDT) Only the most recent of2 resultswithin the time period is included. [facility] BK VIRUS DNA, PCR 95 Negative IU/mL [facility] Comment:The linear range of the assay is 22 - 100,000,000 IU/mL. log10 BK Qn PCR, Plasma or Serum 1.978 log10 IU/mL [facility] Blood Venous blood / Unknown 08/04/2025 9:47 AM EDT 08/04/2025 Tyrell Oden MD LAB BLOOD ORDERABLES Final Result Performing Organization Address [facility] Co de Phone Number [facility] [address] [place] [address] * (ABNORMAL) CBC and Differential (08/04/2025 9:47 AM EDT) Only the most recent of2 resultswithin the time period is included. [facility] WBC 3.4 3.4 - 10.8 x10E3/uL [facility] RBC 4.02(L) 4.14 - 5.80 x10E6/uL [facility] Hemoglobin 12.0(L) 13.0 - 17.7 g/dL [facility] Hematocrit 37.6 37.5 - 51.0 % [facility] MCV 94 79 - 97 fL [facility] MCH 29.9 26.6 - 33.0 pg [facility] MCHC 31.9 31.5 - 35.7 g/dL [facility] RDW 13.6 11.6 - 15.4 % [facility] Platelets 143(L) 150 - 450 x10E3/uL [facility] Neutrophils Relative 39 Not Estab. % [facility] Lymphocytes Relative 39 Not Estab. % [facility] Monocytes 12 Not Estab. % [facility] Eosinophils Relative 3 Not Estab. % [facility] Basophils Relative 4 Not Estab. % [facility] Immature Cells Note [facility] Neutrophils Absolute 1.3(L) 1.4 - 7.0 x10E3/uL [facility] Lymphocytes Absolute 1.3 0.7 - 3.1 x10E3/uL [facility] Monocytes Absolute 0.4 0.1 - 0.9 x10E3/uL [facility] Eosinophils Absolute 0.1 0.0 - 0.4 x10E3/uL [facility] Basophils Absolute 0.1 0.0 - 0.2 x10E3/uL [facility] Comment: Note: [facility] Comment: CBC met reflex criteria for review of peripheral smear by medical laboratory professional. Manual differential was performed. Blood Venous blood / Unknown 08/04/2025 9:47 AM EDT 08/04/2025 Tyrell Oden MD LAB BLOOD ORDERABLES Final Result [facility] [address] [place] [address] * ALT (08/04/2025 9:47 AM EDT) Only the most recent of2 resultswithin the time period is included. ALT (SGPT) 16 0 - 44 IU/L [facility] Blood Venous blood / Unknown 08/04/2025 9:47 AM EDT 08/04/2025 Tyrell Oden MD LAB BLOOD ORDERABLES Final Result Performing Organization Address City/[facility]/ZIP Co de Phone Number [facility] [address] [place] [address] * AST (08/04/2025 9:47 AM EDT) Only the most recent of2 resultswithin the time period is included. AST (SGOT) 24 0 - 40 IU/L [facility] Blood Venous blood / Unknown 08/04/2025 9:47 AM EDT 08/04/2025 Tyrell Oden MD LAB BLOOD ORDERABLES Final Result Performing Organization Address [facility] Co de Phone Number [facility] [place] [address] [place] [address] * (ABNORMAL) PTH, Intact (08/04/2025 9:47 AM EDT) Only the most recent of2 resultswithin the time period is included. PTH 239(H) 15 - 65 pg/mL [facility] Blood Venous blood / Unknown 08/04/2025 9:47 AM EDT 08/04/2025 Tyrell Oden MD LAB BLOOD ORDERABLES Final Result Performing Organization Address City/[facility]/ZIP Co de Phone Number [facility] [address] [place] [address] * (ABNORMAL) Ferritin (08/04/2025 9:47 AM EDT) Only the most recent of2 resultswithin the time period is included. Ferritin 1,177(H) 30 - 400 ng/mL [facility] Blood Venous blood / Unknown 08/04/2025 9:47 AM EDT 08/04/2025 Tyrell Oden MD LAB BLOOD ORDERABLES Final Result Performing Organization Address City/[facility]/ZIP Co de Phone Number [facility] [address] [place] [address] * CK (08/04/2025 9:47 AM EDT) Only the most recent of2 resultswithin the time period is included. Creatine Kinase (CK/CPK) 76 41 - 331 U/L [facility] Blood Venous blood / Unknown 08/04/2025 9:47 AM EDT 08/04/2025 Tyrell Oden MD LAB BLOOD ORDERABLES Final Result Performing Organization Address City/[facility] de Phone Number [facility] [address] [place] [address] * (ABNORMAL) Renal Function Panel (08/04/2025 9:47 AM EDT) Only the most recent of2 resultswithin the time period is included. Glucose 110(H) 70 - 99 mg/dL [facility] BUN 36(H) 8 - 27 mg/dL [facility] Creatinine 1.60(H) 0.76 - 1.27 mg/dL [facility] eGFR CKD-EPI CR 2020 45(L) >59 mL/min/1.7 3 [facility] BUN/Creatinine Ratio 23 10 - 24 [facility] Sodium 142 134 - 144 mmol/L [facility] Potassium 4.8 3.5 - 5.2 mmol/L [facility] Chloride 110(H) 96 - 106 mmol/L [facility] Bicarbonate (CO2) 16(L) 20 - 29 mmol/L [facility] Calcium 10.1 8.6 - 10.2 mg/dL [facility] Albumin 4.2 3.8 - 4.8 g/dL [facility] Phosphorus 2.8 2.8 - 4.1 mg/dL [facility] Blood Venous blood / Unknown 08/04/2025 9:47 AM EDT 08/04/2025 Tyrell Oden MD LAB BLOOD ORDERABLES Final Result [facility] [address] [place] [address] * BK Virus, Quantitative PCR, Urine (06/10/2025 8:16 AM EDT) BKV DNA # Ur PCR 1,500,000 Negative IU/mL [facility] Comment:The linear range of the assay is 200 - 100,000,000 IU/ml log10 BK Qn PCR Ur 6.176 log10 IU/mL [facility] 06/10/2025 8:16 AM EDT 06/10/2025 Tyrell Oden MD LAB URINE ORDERABLES Final Result [facility] [address] [place] [address] * Mycophenolic Acid and Metabo. (06/10/2025 8:16 AM EDT) Mycophenolic Acid 2.8 1.0 - 3.5 ug/mL [facility] Mycophenolic Acid Glucuronide 50 35 - 100 ug/mL [facility] Blood Venous blood / Unknown 06/10/2025 8:16 AM EDT 06/10/2025 Narrative [facility] - 06/13/2025 8:06 PM EDT Test(s) 840418-Czvnhokkjnns Acid; 959729- Mycophenolic Acid Glucuronide was developed and its performance characteristics determined by [employer]. It has not been cleared or approved by the Food and Drug Administration. Tyrell Oden MD LAB BLOOD ORDERABLES Final Result [facility] [address] [place] [address] * (ABNORMAL) Hemoglobin A1c (10/09/2024 10:12 AM EST) Hemoglobin A1C 5.8(H) 4.8 - 5.6 % [facility] Comment: Prediabetes: 5.7 - 6.4 Diabetes: >6.4 Glycemic control for adults with diabetes: <7.0 Blood specimen (specimen) Venous blood / Unknown 10/09/2024 10:12 AM EST 10/09/2024 Christopher THOMAS LAB BLOOD ORDERABLES Final Re sult [facility] [address] [place] [address] from Last 3 Months or Most Recently Relevant to Health Maintenance Insurance [facility] Medicare Medicare [facility] Care Teams Flight Mechanic Relationship Specialty Start Date End Date Jonatan Anthony MD [facility] [address] [place], [place] PCP - General Internal Medicine 04/29/22
--- OUTSIDE RECORDS SUMMARY | 2025-08-06 10:13 | XMS_ITS | Encounter Summary ---
Author Organization [facility] [place], Address [address] [place] [address] Phone Care Team Providers Care Application Support Developer Name Role Phone Jonatan Anthony MD Primary Care Provider [phone] Reason for Visit * Reason Comments Med Refill Encounter Details Date Type Department Care Team (Late st Contact Info) Description 12/26/2022 Refill [facility] [address] [place] [address] Tyrell Oden MD [address] [place] [address] Social History Tobacco Use Types [...] on filedocumented in this encounter Care Teams Application Support Developer Relationship Specialty Start Date End Date Jonatan Anthony MD [facility] [address] [place], [place] PCP - General Internal Medicine 04/29/22 documented as of this encounter
--- OUTSIDE RECORDS SUMMARY | 2025-08-06 10:13 | XMS_ITS | Encounter Summary ---
Author Organization [facility] [place], Address [address] [place] [address] Phone Care Team Providers Care Vault Worker Name Role Phone Jonatan Anthony MD Primary Care Provider [phone] Reason for Visit * Reason Comments Med Refill Encounter Details Date Type Department Care Team (Late st Contact Info) Description 04/23/2023 Refill [facility] [place] [address] [place] [address] Tyrell Oden MD [address] [place] [address] Social History Tobacco Use [...] on filedocumented in this encounter Care Teams Vault Worker Relationship Specialty Start Date End Date Jonatan Anthony MD [facility] [address] [place], [place] PCP - General Internal Medicine 04/29/22 documented as of this encounter
--- OUTSIDE RECORDS SUMMARY | 2025-08-06 10:13 | XMS_ITS | Patient Health Record ---
[facility] Brad latoya KangKaz Address [address] [facility] [place] [address] Care Team Providers Care Hotel Services Supervisor Name Role Phone Jonatan Anthony Primary Care Provider Leticia Matthews Unavailable [phone] Allergies Allergen (clinical drug ingredient) Drug/Non Drug [...] Problem Acquired hammer toe of right foot (8308320593242415 ) Other hammer toe(s) (acquired), right foot (M20.41) Active confirmed Problem Acquired hammer toe of left foot (7932479044358569 ) Other hammer toe(s) (acquired), left foot (M20.42) Active confirmed Problem Chronic kidney disease due to type 2 diabetes mellitus (976008265243) 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.22) Active confirmed Problem Polyneuropathy due to type 2 diabetes mellitus (884553202) Type 2 diabetes mellitus with diabetic polyneuropathy (E11.42) Active confirmed Vital Signs Blood pressure diastolic 60 mm Hg 07/17/2025 Height 5ft6in in 07/17/2025 Blood pressure systolic 132 mm Hg 07/17/2025 Weight 176 lbs 07/17/2025 BMI 28.4 kg/m2 07/17/2025 Procedures Procedure Date Ordered Date Performed Result Body Sit e 82415-QUZIVNU NAIL, 6 OR MORE 09/19/2024 N/A 51985-GIGR SKIN LESIONS, 2 TO 4 09/19/2024 N/A 57272-JQVOCJG NAIL, 6 OR MORE 12/26/2024 N/A 88213-MXNE SKIN LESIONS, 2 TO 4 12/26/2024 N/A 95981-IAICFKC NAIL, 6 OR MORE 03/31/2025 N/A 52300-WHWE SKIN LESIONS, 2 TO 4 03/31/2025 N/A Encounters Encounter Location Date Provider Diagnosis [address] [address] 09/19/2024 Leticia Black Type 2 diabetes mellitus [...] foot M77.51 and Metatarsalgia, right foot M77.[address] [address] 12/26/2024 Leticia Black Type 2 diabetes mellitus [...] Short Achilles tendon (acquired), left ankle M67.[address] [address] 03/31/2025 Leticia Black Type 2 diabetes mellitus [...] Short Achilles tendon (acquired), left ankle M67.02 [facility] [address] [address] 07/17/2025 Leticia Reymundo Type 2 diabetes mellitus with diabetic chronic kidney disease E11.22 ; Tinea unguium B35.1 ; Type 2 diabetes mellitus with diabetic polyneuropathy E11.42 ; Other hammer toe(s) (acquired), right foot M20.41 ; Other hammer toe(s) (acquired), left foot M20.42 and Ingrown nail L60.[address] [address] 08/19/2024 Leticia Dwyer Xerosis cutis L85.[address] [address] 01/02/2025 Leticia Dwyer [address] [address] 05/22/2025 Leticia Dwyer Assessments Encounter Date Diagnosis [...] Treatment Pending Test Test Name Order Date 99029-HOTZKDT NAIL, 6 OR MORE 09/01/2022 87559-WOIDJMB NAIL, 6 OR MORE 12/08/2022 94347-AMHHUJS NAIL, 6 OR MORE 03/09/2023 28147-YGZYOET NAIL, 6 OR MORE 12/11/2023 56392-TLZUHMM NAIL, 6 OR MORE 03/14/2024 43978-MFLOUGA NAIL, 6 OR MORE 06/13/2024 02926-ICHVZGP NAIL, 6 OR MORE 09/19/2024 66549-HUPFNRZ NAIL, 6 OR MORE 12/26/2024 89345-WZDTJHN NAIL, 6 OR MORE 03/31/2025 08916-Rkynvdvs Plate 03/09/2023 85197-Vsjgciiz Plate 03/14/2024 96477-JDNP SKIN LESIONS, 2 TO 4 06/13/20 24 67745-HHWE SKIN LESIONS, 2 TO 4 12/26/19 32805-QCOQ SKIN LESIONS, 2 TO 4 09/19/20 65751-JCFH SKIN LESIONS, 2 TO 4 03/14/20 22480-QGNU SKIN LESIONS, 2 TO 4 12/11/19 57989-EFOM SKIN LESIONS, 2 TO 4 03/09/20 81545-ZVZV SKIN LESIONS, 2 TO 4 12/08/19 70321-CWGI SKIN LESIONS, 2 TO 4 03/31/20 Next Appt Details Provider Name:Leticia Dwyer , 09/29/2025 04:00:00 PM, [address] [place] [address], [id number], Insurance Providers Payer Name Payer Address Payer Phone Subscriber Number Group Number Insured Name Patient Relationship to Insured Coverage Start Date Coverage End Date Medicare [facility] [employer] [address] [place] [address] [id number] Maninder Pack Self - patient is the insured [employer] [address] [place] [address] [phone] [id number] 1 Maninder Pack Self - patient is [...]
--- OUTSIDE RECORDS SUMMARY | 2025-08-06 10:14 | XMS_ITS | Encounter Summary ---
Author Organization [facility] Address [address] [place] [address] Phone Care Team Providers Care Area Director Of Home Health Sales Name Role Phone Jonatan Anthony MD Primary Care Provider [phone] Encounter Details Date Type Department Care Team (Late st Contact Info) Description 01/15/2025 Documentation Only [facility] [place], [address] [place] [address] [place], [place] [address] [place] [address] Social History Tobacco Use Types Packs/Day Years [...] on filedocumented in this encounter Care Teams Area Director Of Home Health Sales Relationship Specialty Start Date End Date Jonatan Anthony MD [facility] INTERNAL [place] [address] [place], [place] PCP - General Internal Medicine 04/29/22 documented as of this encounter
--- OUTSIDE RECORDS SUMMARY | 2025-08-06 10:14 | XMS_ITS | Encounter Summary ---
Author Organization [facility] [place], Address [address] [place] [address] Phone Care Team Providers Care Crane Ladle Person Name Role Phone Jonatan Anthony MD Primary Care Provider [phone] Reason for Visit * Reason Comments Med Refill Encounter Details Date Type Department Care Team (Late st Contact Info) Description 02/24/2023 Refill [facility] [place] [address] [place] [address] Christopher Caicedo PA [address] [place] [phone] Social History Tobacco Use Types Packs/Day Years [...] on filedocumented in this encounter Care Teams Crane Ladle Person Relationship Specialty Start Date End Date Jonatan Anthony MD [facility] [address] [place], [place] PCP - General Internal Medicine 04/29/22 documented as of this encounter
--- OUTSIDE RECORDS SUMMARY | 2025-08-06 10:14 | XMS_ITS | Encounter Summary ---
Author Organization [facility] Address [address] [place] [address] Phone Care Team Providers Care Weaver Hand Name Role Phone Jonatan Anthony MD Primary Care Provider [phone] Encounter Details Date Type Department Care Team (Late st Contact Info) Description 12/27/2023 Documentation Only [facility] [place], [address] [place] [address] Nadja Moss [address] [place] [phone] Social History Tobacco Use Types Packs/Day Years [...] on filedocumented in this encounter Care Teams Weaver Hand Relationship Specialty Start Date End Date Jonatan Anthony MD [facility] [place] [address] [place], [place] PCP - General Internal Medicine 04/29/22 documented as of this encounter
--- OUTSIDE RECORDS SUMMARY | 2025-08-06 10:14 | XMS_ITS | Encounter Summary ---
Author Organization [facility] Address [address] [place] [address] Phone Care Team Providers Care Principal Strategist Name Role Phone Jonatan Anthony MD Primary Care Provider [phone] Encounter Details Date Type Department Care Team (Late st Contact Info) Description 09/17/2024 Documentation Only [facility] [place], [address] [place] [address] Maddy Nune[place], [place] [address] [place] [address] Social History Tobacco Use Types Packs/Day Years [...] on filedocumented in this encounter Care Teams Principal Strategist Relationship Specialty Start Date End Date Jonatan Anthony MD [facility]NAL [place] [address] [place], [place] PCP - General Internal Medicine 04/29/22 documented as of this encounter
--- OUTSIDE RECORDS SUMMARY | 2025-08-06 10:14 | XMS_ITS | Clinical Summary ---
Author Organization [facility] Address [address] [place] [address] Care Team Providers Care Ui Application Developer Name Role Phone Pcp, No Primary Care [...] MEDICARE PART A & B Care Teams Ui Application Developer Relationship Specialty Start Date End Date Pcp, No [address] [place] [address] PCP - General 03/28/22
--- OUTSIDE RECORDS SUMMARY | 2025-08-06 10:14 | XMS_ITS | Encounter Summary ---
Author Organization [facility] Address [address] [place] [address] Phone Care Team Providers Care Deckhand Tuna Boat Name Role Phone Jonatan Anthony MD Primary Care Provider [phone] Encounter Details Date Type Department Care Team (Late st Contact Info) Description 08/26/2024 Documentation Only [facility] [place], [address] [place] [address] [place], [place] [address] [place] [phone] Social History Tobacco Use Types Packs/Day Years [...] on filedocumented in this encounter Care Teams Deckhand Tuna Boat Relationship Specialty Start Date End Date Jonatan Anthony MD [facility] INTERNAL [place] [address] [place], [place] PCP - General Internal Medicine 04/29/22 documented as of this encounter
--- OUTSIDE RECORDS SUMMARY | 2025-08-06 10:14 | XMS_ITS | Encounter Summary ---
Author Organization [facility] Address [address] [place] [address] Phone Care Team Providers Care Meat Counter Worker Name Role Phone Jonatan Anthony MD Primary Care Provider [phone] Encounter Details Date Type Department Care Team (Late st Contact Info) Description 10/28/2024 Documentation Only [facility] [place], [address] [place] [address] Maddy NunezLA [place], [place] [address] [place] [phone] Social History Tobacco Use Types Packs/Day Years [...] on filedocumented in this encounter Care Teams Meat Counter Worker Relationship Specialty Start Date End Date Jonatan Anthony MD [facility] [place] [address] [place], [place] PCP - General Internal Medicine 04/29/22 documented as of this encounter
--- OUTSIDE RECORDS SUMMARY | 2025-08-06 10:14 | XMS_ITS | Encounter Summary ---
Author Organization [facility] Address [address] [place] [address] Phone Care Team Providers Care Certified Medical Assistant Name Role Phone Jonatan Anthony MD Primary Care Provider [phone] Reason for Visit * Reason Comments Med Refill Encounter Details Date Type Department Care Team ([facility] Contact Info) Description 08/27/2024 Refill [facility] [place] [address] [place] [phone] Rakesh King MD Social History Tobacco Use [...] on filedocumented in this encounter Care Teams Certified Medical Assistant Relationship Specialty Start Date End Date Jonatan Anthony MD [facility] [place] [address] [place] [address] PCP - General Internal Medicine 04/29/22 documented as of this encounter
--- OUTSIDE RECORDS SUMMARY | 2025-08-06 10:14 | XMS_ITS | Encounter Summary ---
Author Organization [facility] [place], Address [address] [place] [address] Phone Care Team Providers Care Radiology Orderly Name Role Phone Jonatan Anthony MD Primary Care Provider [phone] Reason for Visit * Reason Comments Med Refill Encounter Details Date Type Department Care Team (Late st Contact Info) Description 01/31/2023 Refill [facility] [place] [address] [place] [phone] Christopher Caicedo PA [address] [place] [address] Social History Tobacco Use Types Packs/Day Years [...] on filedocumented in this encounter Care Teams Radiology Orderly Relationship Specialty Start Date End Date Jonatan Anthony MD [facility] [address] [place], [place] PCP - General Internal Medicine 04/29/22 documented as of this encounter
--- OUTSIDE RECORDS SUMMARY | 2025-08-06 10:14 | XMS_ITS | Encounter Summary ---
Author Organization [facility] Address [address] [place] [address] Phone Care Team Providers Care Financial Services Education Consultant Name Role Phone Jonatan Anthony MD Primary Care Provider [phone] Reason for Visit * Reason Comments Med Refill Encounter Details Date Type Department Care Team (Late st Contact Info) Description 03/27/2024 Refill [facility] [place], [address] [place] [phone] Giuliano Shirley MD [address] [place] [phone] Social History Tobacco Use Types Packs/Day Years [...] on filedocumented in this encounter Care Teams Financial Services Education Consultant Relationship Specialty Start Date End Date Jonatan Anthony MD [facility] [address] [place], [place] PCP - General Internal Medicine 04/29/22 documented as of this encounter
--- OUTSIDE RECORDS SUMMARY | 2025-08-06 10:14 | XMS_ITS | Encounter Summary ---
Author Organization [facility] Address [address] [place] [address] Phone Care Team Providers Care Receivable Clerk Name Role Phone Jonatan Anthony MD Primary Care Provider [phone] Encounter Details Date Type Department Care Team (Late st Contact Info) Description 01/06/2023 Documentation Only [facility] [place], [address] [place] [address] [place], [place] [address] [place] [phone] Social History Tobacco Use Types Packs/Day Years [...] on filedocumented in this encounter Care Teams Receivable Clerk Relationship Specialty Start Date End Date Jonatan Anthony MD [facility] [place] [address] [place], [place] PCP - General Internal Medicine 04/29/22 documented as of this encounter
--- OUTSIDE RECORDS SUMMARY | 2025-08-06 10:14 | XMS_ITS | Encounter Summary ---
Author Organization [facility] Address [address] [place] [address] Phone Care Team Providers Care Prototype Machinist Name Role Phone Jonatan Anthony MD Primary Care Provider [phone] Encounter Details Date Type Department Care Team (Late st Contact Info) Description 08/26/2024 Documentation Only [facility] [place], [address] [place] [address] [place], [place] [address] [place] [address] Social History Tobacco Use Types Packs/Day Years [...] on filedocumented in this encounter Care Teams Prototype Machinist Relationship Specialty Start Date End Date Jonatan Anthony MD [facility] [place] [address] [place], [place] PCP - General Internal Medicine 04/29/22 documented as of this encounter
--- OUTSIDE RECORDS SUMMARY | 2025-08-06 10:14 | XMS_ITS | Clinical Summary ---
Author Organization [facility] Address [address] [place] [address] Phone Care Team Providers Care Business Management Professor Name Role Phone Walt Silveira MD Primary [...] file Insurance MEDICARE PART A & B [employer] MEDEX SUPPLEMENT MEDICARE PART A & B [employer] MEDEX SUPPLEMENT MEDICARE PART A & B [employer] MEDEX SUPPLEMENT MEDICARE PART A & B [employer] MEDEX SUPPLEMENT MEDICARE PART A & B Member Subscriber Plan / Payer (Ef fective 2015-Present) Name:Maninder Pack Member ID:[id number] Relation to Subscriber:Self Name:Maninder Pack Subscriber ID:[id number] Payer ID:[id number] Group ID:Not on file Type:Medicare Address: [place] [address] [employer] CROSS MEDEX SUPPLEMENT MEDICARE PART A & B [employer] CROSS MEDEX SUPPLEMENT Care Teams Business Management Professor Relationship Specialty Start Date End Date Walt Silveira MD [address] [place] [address], [address] [place] [address] [email or web address] PCP - General Neurology 02/19/25 Additional Source Comments The information contained in this document represents components of the legal health record. It is not the complete legal health record.[facility]
--- OUTSIDE RECORDS SUMMARY | 2025-08-06 10:14 | XMS_ITS | Encounter Summary ---
Author Organization [facility] [place], Address [address] [place] [address] Phone Care Team Providers Care Paper Sales Manager Name Role Phone Jonatan Anthony MD Primary Care Provider [phone] Reason for Visit * Reason Comments Med Refill Encounter Details Date Type Department Care Team (Late st Contact Info) Description 11/18/2022 Refill [facility] [address] [place] [address] Tyrell Oden MD [address] [place] [address] Social History Tobacco Use Types [...] on filedocumented in this encounter Care Teams Paper Sales Manager Relationship Specialty Start Date End Date Jonatan Anthony MD [facility] [address] [place], [place] PCP - General Internal Medicine 04/29/22 documented as of this encounter
== END 2025-08-06 10:15 | disposition home or self-care (01) ==
LOC: HO.HGI 08:46
PROVIDERS: PCP Internal Medicine; Visit Provider Internal Medicine
DX: B18.1 Chronic viral hepatitis B without delta-agent (principal); R76.8 Other specified abnormal immunological findings in serum; Z12.12 Encounter for screening for malignant neoplasm of rectum
CPT/HCPCS: 99214

== ENCOUNTER → 2025-08-06 08:46 | Outpatient (BNVA) | payer MEDICARE, SELFPAY | PROVIDERS: PCP Internal Medicine; Visit Provider Internal Medicine | DX: Z12.11 Encounter for screening for malignant neoplasm of colon (principal); Z12.12 Encounter for screening for malignant neoplasm of rectum; R76.8 Other specified abnormal immunological findings in serum; B18.1 Chronic viral hepatitis B without delta-agent | CPT/HCPCS: 99212 ==

== ENCOUNTER 2025-08-08 14:54 | Outpatient (AMB) | payer MEDICARE, SELFPAY ==
--- OUTSIDE RECORDS SUMMARY | 2024-07-04 06:00 | XMS_ITS ---
Author Organization [facility] Address [address] [place] [address] Care Team Providers Care Chief Hydroelectric Station Operator Name Role Phone Jonatan Anthony Primary Care Provider Leticia Matthews [phone] REASON FOR VISIT Seen Sooner Encounters Encounter Location Date Provider Diagnosis [facility] [address] [place] [address] 07/04/2024 Leticia Dwyer Plan Of Treatment Next Appt Details Provider Name:Leticia Dwyer , 09/29/2025 04:00:00 PM, [address] [place], [address], Progress Notes * Maninder PACKDOB: [birth year] (75 yo M)Acc No.[id number]:07/04/2024 Progress Note Patient: Maninder CARVER Provider: Cindy Dwyer DPM :1950 A ge:74 Y S ex:Male Date:07/04/2024 Address:[address] [place] [address] Pcp:Jonatan Anthony Subjective: * Chief Complaints: * [...] DPM Date: 0 07/04/2024 Generated for Sven montes/Swati/Alizeitting on: 0 08/08/2025 02:57 PM EDT
--- OUTSIDE RECORDS SUMMARY | 2025-08-08 14:57 | XMS_ITS | Encounter Summary ---
Author Organization [facility], Address [address] [place] [address] Phone Care Team Providers Care Incident Commander Name Role Phone Jonatan Anthony MD Primary Care Provider [phone] Reason for Visit * Reason Comments Med Refill Encounter Details Date Type Department Care Team (Late st Contact Info) Description 11/23/2023 Refill [facility] [address] [place] [address] Christopher Caicedo PA [address] [place] [address] [place] [address] Long-term drug therapy Social History Tobacco [...] Care Team (Late st Contact Info) Description 08/28/2025 3:15 PM EDT Clinical Support [facility] [address] [place] [address] Heather Hernandez FNP-C [address] [place] [address] [place] [address] documented as of this encounter Visit Diagnoses Diagnosis Long-term drug therapy documented in this encounter Care Teams Incident Commander Relationship Specialty Start Date End Date Jonatan Anthony MD [facility] INTERNAL [place] [address] [facility] [place] PCP - General Internal Medicine 04/29/22 documented as of this encounter
--- OUTSIDE RECORDS SUMMARY | 2025-08-08 14:57 | XMS_ITS | Encounter Summary ---
Author Organization [facility] Address [address] [place] [address] Phone Care Team Providers Care Restaurant Front Manager Name Role Phone Jonatan Anthony MD Primary Care Provider [phone] Encounter Details Date Type Department Care Team (Late Contact Info) Description 09/21/2023 Documentation Only [facility] [address] [place] [address] Tyrell Oden MD [address] [place] [address] [place] [address] Social History Tobacco Use Types [...] Department Care Team (Late Contact Info) Description 08/28/2025 3:15 PM EDT Clinical Support [facility] [place] [address] [place] [address] Heather Hernandez FNP-C [address] [place] [address] documented as of this encounter Visit Diagnoses Not on filedocumented in this encounter Care Teams Restaurant Front Manager Relationship Specialty Start Date End Date Jonatan Anthony MD [facility] [place] [address] [place] PCP - General Internal Medicine 04/29/22 documented as of this encounter
--- OUTSIDE RECORDS SUMMARY | 2025-08-08 14:57 | XMS_ITS | Encounter Summary ---
Author Organization [facility] Address [address] [place] [address] Phone Care Team Providers Care Stone And Concrete Washer Name Role Phone Jonatan Anthony MD Primary Care Provider [phone] Encounter Details Date Type Department Care Team ([facility] Contact Info) Description 05/01/2025 Documentation Only [facility] [place], [address] [place] [address] Maddy Nunez [place] [address] [place] [address] Social History Tobacco Use Types [...] Support [facility] [place] [address] [place] [address] Heather Hernandez FNP-C [address] [place] [address] documented as of this encounter Visit Diagnoses Not on filedocumented in this encounter Care Teams Stone And Concrete Washer Relationship Specialty Start Date End Date Jonatan Anthony MD [facility] [place] [address] [place] PCP - General Internal Medicine 04/29/22 documented as of this encounter
--- OUTSIDE RECORDS SUMMARY | 2025-08-08 14:57 | XMS_ITS | Encounter Summary ---
Author Organization [facility] Address [address] [place] [address] Phone Care Team Providers Care Choke Reamer Name Role Phone Jonatan Anthony MD Primary Care Provider [phone] Encounter Details Date Type Department Care Team (Late Contact Info) Description 10/05/2023 Documentation Only [facility] [address] [place] [address] Tyrell Oden MD [address] [place] [address] [place] [address] Social History Tobacco Use Types [...] Support [facility] [place] [address] [place] [address] Heather Hernandez FNP-C [address] [place] [address] documented as of this encounter Visit Diagnoses Not on filedocumented in this encounter Care Teams Choke Reamer Relationship Specialty Start Date End Date Jonatan Anthony MD [facility] INTERNAL [place] [address] [place] PCP - General Internal Medicine 04/29/22 documented as of this encounter
--- OUTSIDE RECORDS SUMMARY | 2025-08-08 14:57 | XMS_ITS | Encounter Summary ---
Author Organization [facility], Address [address] [place] [address] Phone Care Team Providers Care Experimental Rocket Sled Mechanic Name Role Phone Jonatan Anthony MD Primary Care Provider [phone] Reason for Visit * Reason Comments Med Refill Encounter Details Date Type Department Care Team (Late Contact Info) Description 08/01/2023 Refill [facility] [address] [place] [address] Christopher Caicedo PA [address] [place] [address] [place] [address] Social History [...] Clinical Support [facility] [address] [place] [address] Heather Hernandez FNP-C [address] [place] [address] documented as of this encounter Visit Diagnoses Not on filedocumented in this encounter Care Teams Experimental Rocket Sled Mechanic Relationship Specialty Start Date End Date Jonatan Anthony MD [facility] [address] [place] PCP - General Internal Medicine 04/29/22 documented as of this encounter
--- OUTSIDE RECORDS SUMMARY | 2025-08-08 14:57 | XMS_ITS | Encounter Summary ---
Author Organization [facility] Address [address] [place] [address] Phone Care Team Providers Care Extension Work Director Name Role Phone Jonatan Anthony MD Primary Care Provider [phone] Encounter Details Date Type Department Care Team (Late Contact Info) Description 08/04/2025 Telephone [facility] [place], [address] [address] Maddy Nunez [place] [address] [place] [address] Social History Tobacco Use Types [...] - 08/04/2025 1:14 PM EDT Lm on letting pt know that due to a [...] Support [facility] [place] [address] [place] [address] Heather Hernandez FNP-Carlos [address] [place] [id number] documented as of this encounter Visit Diagnoses Not on filedocumented in this encounter Care Teams Extension Work Director Relationship Specialty Start Date End Date Jonatan Anthony MD [facility] INTERNAL [place] [address] [place], [place] PCP - General Internal Medicine 04/29/22 documented as of this encounter
--- OUTSIDE RECORDS SUMMARY | 2025-08-08 14:57 | XMS_ITS | Encounter Summary ---
Author Organization [facility] Address [address] [place] [address] Phone Care Team Providers Care Associate Chief Nurse Name Role Phone Jonatan Anthony MD Primary Care Provider [phone] Encounter Details Date Type Department Care Team (Late Contact Info) Description 03/31/2022 Documentation Only [facility] [place], [address] [place] [address] Christopher Caicedo PA [address] [place] [address] Social History Tobacco Use Types [...] Support [facility] [place] [address] [place] [address] Heather Hernandez FNP-C [address] [place] [address] documented as of this encounter Visit Diagnoses Not on filedocumented in this encounter Care Teams Associate Chief Nurse Relationship Specialty Start Date End Date Jonatan Anthony MD [facility] [place]NAL [place] [address] [place] PCP - General Internal Medicine 04/29/22 documented as of this encounter
--- OUTSIDE RECORDS SUMMARY | 2025-08-08 14:57 | XMS_ITS | Encounter Summary ---
Author Organization [facility] Address [address] [place] [address] Phone Care Team Providers Care Wrapper Caser Name Role Phone Jonatan Anthony MD Primary Care Provider [phone] Reason for Visit * Reason Comments Med Refill Encounter Details Date Type Department Care Team (Late st Contact Info) Description 08/26/2023 Refill [facility] [place], [address] [place] [address] Tyrell Oden MD [address] [place] [address] [place] [address] Social History Tobacco Use Types [...] Support [facility] [place] [address] [place] [address] Heather Hernandez FNP-C [address] [place] [address] documented as of this encounter Visit Diagnoses Not on filedocumented in this encounter Care Teams Wrapper Caser Relationship Specialty Start Date End Date Jonatan Anthony MD [facility] [address] [facility] [place] PCP - General Internal Medicine 04/29/22 documented as of this encounter
--- OUTSIDE RECORDS SUMMARY | 2025-08-08 14:58 | XMS_ITS | Encounter Summary ---
Author Organization [facility] Address [address] [place] [address] Phone Care Team Providers Care Office Assistance Name Role Phone Jonatan Anthony MD Primary Care Provider [phone] Encounter Details Date Type Department Care Team (Late Contact Info) Description 06/13/2023 Documentation Only [facility] [place], [address] [place] [address] Christopher Caicedo PA [address] [place] [address] Social History Tobacco Use Types [...] Support [facility] [place] [address] [place] [address] Heather Hernandez FNP-C [address] [place] [address] documented as of this encounter Visit Diagnoses Not on filedocumented in this encounter Care Teams Office Assistance Relationship Specialty Start Date End Date Jonatan Anthony MD [facility] [place]NAL [place] [address] [place] PCP - General Internal Medicine 04/29/22 documented as of this encounter
--- OUTSIDE RECORDS SUMMARY | 2025-08-08 14:58 | XMS_ITS | Patient Health Record ---
Author Organization [facility] latoya [facility] Address [address] [place] [address] Care Team Providers Care Supply Person Name Role Phone Jonatan Anthony Primary Care Provider Leticia Matthews Unavailable [phone] Allergies Allergen (clinical drug ingredient) Drug/Non Drug [...] Problem Acquired hammer toe of right foot (7538738084852263 ) Other hammer toe(s) (acquired), right foot (M20.41) Active confirmed Problem Acquired hammer toe of left foot (3186979155229025 ) Other hammer toe(s) (acquired), left foot (M20.42) Active confirmed Problem Chronic kidney disease due to type 2 diabetes mellitus (747111810567) 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.22) Active confirmed Problem Polyneuropathy due to type 2 diabetes mellitus (497119003) Type 2 diabetes mellitus with diabetic polyneuropathy (E11.42) Active confirmed Vital Signs Blood pressure diastolic 60 mm Hg 07/17/2025 Height 5ft6in in 07/17/2025 Blood pressure systolic 132 mm Hg 07/17/2025 Weight 176 lbs 07/17/2025 BMI 28.4 kg/m2 07/17/2025 Procedures Procedure Date Ordered Date Performed Result Body Sit e 42765-YVFVDZN NAIL, 6 OR MORE 09/19/2024 N/A 65748-UMQP SKIN LESIONS, 2 TO 4 09/19/2024 N/A 15983-YQOLBXG NAIL, 6 OR MORE 12/26/2024 N/A 34548-WGHB SKIN LESIONS, 2 TO 4 12/26/2024 N/A 51858-WYSCLEL NAIL, 6 OR MORE 03/31/2025 N/A 04942-RHMG SKIN LESIONS, 2 TO 4 03/31/2025 N/A Encounters Encounter Location Date Provider Diagnosis [address] [address] 09/19/2024 Leticia Black Type 2 diabetes mellitus [...] foot M77.51 and Metatarsalgia, right foot M77.[address] [address] 12/26/2024 Leticia Black Type 2 diabetes mellitus [...] Short Achilles tendon (acquired), left ankle M67.[address] [address] 03/31/2025 Leticia Black Type 2 diabetes mellitus [...] Short Achilles tendon (acquired), left ankle M67.02 [facility] [address] [address] 07/17/2025 Leticia Reymundo Type 2 diabetes mellitus with diabetic chronic kidney disease E11.22 ; Tinea unguium B35.1 ; Type 2 diabetes mellitus with diabetic polyneuropathy E11.42 ; Other hammer toe(s) (acquired), right foot M20.41 ; Other hammer toe(s) (acquired), left foot M20.42 and Ingrown nail L60.[address] [address] 08/19/2024 Leticia Dwyer Xerosis cutis L85.[address] [address] 01/02/2025 Leticia Dwyer [address] [address] 05/22/2025 Leticia Dwyer Assessments Encounter Date Diagnosis [...] Treatment Pending Test Test Name Order Date 64522-NMUIQOD NAIL, 6 OR MORE 09/01/2022 98544-VXYNWPZ NAIL, 6 OR MORE 12/08/2022 60282-GPCGAHQ NAIL, 6 OR MORE 03/09/2023 58263-VETDXRR NAIL, 6 OR MORE 12/11/2023 18427-GMSRKZV NAIL, 6 OR MORE 03/14/2024 92958-WREKRIJ NAIL, 6 OR MORE 06/13/2024 92736-SINVNWC NAIL, 6 OR MORE 09/19/2024 18758-MGHJIMM NAIL, 6 OR MORE 12/26/2024 68917-HBMUEIV NAIL, 6 OR MORE 03/31/2025 28893-Epecwbhx Plate 03/09/2023 89834-Dnatxakb Plate 03/14/2024 97340-EFEC SKIN LESIONS, 2 TO 4 06/13/20 24 73057-TSLC SKIN LESIONS, 2 TO 4 12/26/19 25228-WYHC SKIN LESIONS, 2 TO 4 09/19/20 22377-VQGC SKIN LESIONS, 2 TO 4 03/14/20 80459-MMUR SKIN LESIONS, 2 TO 4 12/11/19 97106-LADW SKIN LESIONS, 2 TO 4 03/09/20 72507-TTDF SKIN LESIONS, 2 TO 4 12/08/19 02269-UKJM SKIN LESIONS, 2 TO 4 03/31/20 Next Appt Details Provider Name:Leticia Dwyer , 09/29/2025 04:00:00 PM, [address] [place] [address], [address], Insurance Providers Payer Name Payer Address Payer Phone Subscriber Number Group Number Insured Name Patient Relationship to Insured Coverage Start Date Coverage End Date Medicare National [facility] [employer] [address] [place] [address] [id number] Maninder Pack Self - patient is the insured [employer] [address] [place] [address] [phone] [id number] [employer]inder Pack Self - patient is [...]
--- OUTSIDE RECORDS SUMMARY | 2025-08-08 14:58 | XMS_ITS | Encounter Summary ---
Author Organization [facility], Address [address] [place] [address] Phone Care Team Providers Care Brine Tank Operator Name Role Phone Jonatan Anthony MD Primary Care Provider [phone] Reason for Visit * Reason Comments Med Refill Encounter Details Date Type Department Care Team (Late Contact Info) Description 12/26/2022 Refill [facility] [address] [place] [address] Tyrell Oden MD [address] [place] [address] [place] [address] Social History Tobacco Use Types [...] Clinical Support [facility] [address] [place] [address] Heather Hernandez FNP-C [address] [place] [address] [place] [address] documented as of this encounter Visit Diagnoses Not on filedocumented in this encounter Care Teams Brine Tank Operator Relationship Specialty Start Date End Date Jonatan Anthony MD [facility] [address] [place] PCP - General Internal Medicine 04/29/22 documented as of this encounter
--- OUTSIDE RECORDS SUMMARY | 2025-08-08 14:58 | XMS_ITS | Encounter Summary ---
Author Organization [facility] Address [address] [place] [address] Phone Care Team Providers Care Lode Miner Blasting Name Role Phone Jonatan Anthony MD Primary Care Provider [phone] Encounter Details Date Type Department Care Team (Late Contact Info) Description 02/09/2023 Documentation Only [facility] [place], [address] [place] [address] Christopher Caicedo PA [address] [place] [address] Social History Tobacco Use Types [...] Support [facility] [place] [address] [place] [address] Heather Hernandez FNP-C [address] [place] [address] documented as of this encounter Visit Diagnoses Not on filedocumented in this encounter Care Teams Lode Miner Blasting Relationship Specialty Start Date End Date Jonatan Anthony MD [facility] [place]NAL [place] [address] [place] PCP - General Internal Medicine 04/29/22 documented as of this encounter
--- OUTSIDE RECORDS SUMMARY | 2025-08-08 14:58 | XMS_ITS | Encounter Summary ---
Author Organization [facility] Address [address] [place] [address] Phone Care Team Providers Care Swedish Masseuse Name Role Phone Jonatan Anthony MD Primary Care Provider [phone] Reason for Visit * Reason Comments Med Refill Encounter Details Date Type Department Care Team (Late Contact Info) Description 03/27/2024 Refill [facility], [address] [place] [address] Giuliano Shirley MD [address] [place] [address] Social History Tobacco Use Types [...] Support [facility] [place] [address] [place] [address] Heather Hernandez, WAITER/WAITRESS [place]ER[place]-C [address] [place] [address] documented as of this encounter Visit Diagnoses Not on filedocumented in this encounter Care Teams Swedish Masseuse Relationship Specialty Start Date End Date Jonatan Anthony MD [facility] [address] [place] PCP - General Internal Medicine 04/29/22 documented as of this encounter
--- OUTSIDE RECORDS SUMMARY | 2025-08-08 14:58 | XMS_ITS | Clinical Summary ---
Author Organization [facility] Address [address] [place] [address] Care Team Providers Care Tree Fruit And Nut Crops Farmer Name Role Phone Pcp, No Primary Care [...] MEDICARE PART A & B Care Teams Tree Fruit And Nut Crops Farmer Relationship Specialty Start Date End Date Pcp, No [address] [place] [address] PCP - General 03/28/22
--- OUTSIDE RECORDS SUMMARY | 2025-08-08 14:58 | XMS_ITS | Encounter Summary ---
Author Organization [facility], Address [address] [place] [address] Phone Care Team Providers Care Interventional Physiatrist Name Role Phone Jonatan Anthony MD Primary Care Provider [phone] Reason for Visit * Reason Comments Med Refill Encounter Details Date Type Department Care Team (Late Contact Info) Description 04/23/2023 Refill [facility] [address] [place] [address] Tyrell Oden MD [address] [place] [address] [place] [address] Social History Tobacco Use Types [...] Clinical Support [facility] [address] [place] [address] Heather Hernandez FNP-C [address] [place] [address] [place] [address] documented as of this encounter Visit Diagnoses Not on filedocumented in this encounter Care Teams Interventional Physiatrist Relationship Specialty Start Date End Date Jonatan Anthony MD [facility] [address] [place] PCP - General Internal Medicine 04/29/22 documented as of this encounter
--- OUTSIDE RECORDS SUMMARY | 2025-08-08 14:58 | XMS_ITS | Encounter Summary ---
Author Organization [facility] Address [address] [place] [address] Phone Care Team Providers Care Flight Follower Name Role Phone Jonatan Anthony MD Primary Care Provider [phone] Reason for Visit * Reason Comments Med Refill Encounter Details Date Type Department Care Team (Late Contact Info) Description 08/27/2024 Refill [facility] [address] [place] [address] Rakesh King MD Social History Tobacco Use [...] Team ([facility] Contact Info) Description 08/28/2025 3:15 PM EDT Clinical Support [facility] [place] [address] [place] [address] Heather Hernandez FNP-C [address] [place] [address] documented as of this encounter Visit Diagnoses Not on filedocumented in this encounter Care Teams Flight Follower Relationship Specialty Start Date End Date Jonatan Anthony MD [facility] [address] [place], [place] PCP - General Internal Medicine 04/29/22 documented as of this encounter
--- OUTSIDE RECORDS SUMMARY | 2025-08-08 14:58 | XMS_ITS | Encounter Summary ---
Author Organization [facility] Address [address] [place] [address] Phone Care Team Providers Care Operations Intelligence Name Role Phone Jonatan Anthony MD Primary Care Provider [phone] Encounter Details Date Type Department Care Team ([facility] Contact Info) Description 01/15/2025 Documentation Only [facility] [place], [address] [place] [address] Maddy Nunez [place] [address] [place] [address] Social History Tobacco Use Types [...] Support [facility] [place] [address] [place] [address] Heather Hernandez FNP-C [address] [place] [address] documented as of this encounter Visit Diagnoses Not on filedocumented in this encounter Care Teams Operations Intelligence Relationship Specialty Start Date End Date Jonatan Anthony MD [facility]NAL [place] [address] [place] PCP - General Internal Medicine 04/29/22 documented as of this encounter
--- OUTSIDE RECORDS SUMMARY | 2025-08-08 14:58 | XMS_ITS | Encounter Summary ---
Author Organization [facility] Address [address] [place] [address] Phone Care Team Providers Care Grinding Supervisor Name Role Phone Jonatan Anthony MD Primary Care Provider [phone] Encounter Details Date Type Department Care Team ([facility] Contact Info) Description 01/06/2023 Documentation Only [facility] [place], [address] [place] [address] Essence King [place] [address] [place] [address] Social History Tobacco Use Types [...] Support [facility] [place] [address] [place] [address] Heather Hernandez FNP-C [address] [place] [address] documented as of this encounter Visit Diagnoses Not on filedocumented in this encounter Care Teams Grinding Supervisor Relationship Specialty Start Date End Date Jonatan Anthony MD [facility] INTERNAL [place] [address] [place] PCP - General Internal Medicine 04/29/22 documented as of this encounter
--- OUTSIDE RECORDS SUMMARY | 2025-08-08 14:58 | XMS_ITS | Encounter Summary ---
Author Organization [facility] Address [address] [place] [address] Phone Care Team Providers Care Restaurant Crew Name Role Phone Jonatan Anthony MD Primary Care Provider [phone] Encounter Details Date Type Department Care Team (Late Contact Info) Description 07/31/2023 Documentation Only [facility] [place], [address] [place] [address] Angie Martinez [address] [place] [address] Social History Tobacco Use Types Packs/Day Years [...] Support [facility] [place] [address] [place] [address] Heather Hernandez FNP-C [address] [place] [address] documented as of this encounter Visit Diagnoses Not on filedocumented in this encounter Care Teams Restaurant Crew Relationship Specialty Start Date End Date Jonatan Anthony MD [facility] INTERNAL [place] [address] [place], [place] PCP - General Internal Medicine 04/29/22 documented as of this encounter
--- OUTSIDE RECORDS SUMMARY | 2025-08-08 14:58 | XMS_ITS | Clinical Summary ---
Author Organization [facility], Address [address] [place] [address] Phone Care Team Providers Care Bindery Technician Name Role Phone Jonatan Anthony MD Primary Care Provider [phone] Allergies Active Allergy Reactions Criticality Noted Date [...] Telephone [facility] [address] [place] [address] Maddy Nunez MA 07/28/2025 Orders Only [facility] [address] [place] [address] Maddy Nunez MA Kidney replaced by transplant [...] Refill [facility] [address] [place] [address] Tyrell Oden MD 06/29/2025 Refill [facility] [address] [place] [address] Tyrell Oden MD 06/12/2025 3:00 PM EDT Clinical Support [facility] [address] [place] [address] Zackcharles Heather, RECEIVABLE CLERK-C Kidney replaced by transplant (Primary Dx); Stage 3b chronic kidney disease (HCC); Personal history of immunosuppression therapy; Hypertension 06/02/2025 Orders Only [facility] [address] [place] [address] Maddy Nunez [place] Kidney replaced by transplant (Primary Dx); Personal history of immunosuppression therapy; Stage 3b chronic kidney disease (HCC); Type 2 diabetes mellitus with diabetic chronic kidney disease (HCC); Other iron deficiency anemia; Other specified hypoparathyroidism (HCC); Albuminuria, not otherwise specified; 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 Refill [facility] [address] [place] [place] [address] Tyrell Oden MD from Last 3 Months [...] Support [facility] [place] [address] [address] Heather Hernandez FNP-C [address] [place] [address] [place] [address] Health Maintenance Due Date Last Done Comments Pneumococcal Vaccine: 50+ Years (3 of 3 - PCV20 or PCV21) 03/14/2017 01/17/2017, 09/12/2016, 09/07/2007 Diabetes: Ophthalmology Exam 12/20/2020 Diabetes: Pedal Pulse Checked 12/20/2020 Diabetes: Sensory Foot Exam 12/20/2020 Diabetes: Visual Foot Exam 12/20/2020 Colonoscopy (Post-Transplant Patient) 10/06/2021 Diabetes: Hemoglobin A1C 01/09/2025 024, 05/01/2024, 10/26/2023, Additional history exists Influenza Vaccine (#1) 2025 4, 07/20/2023, 08/13/2018, Additional history exists Hepatitis B [...] Myelocytes Relative 3(H) 0 - 0 % [facility] 08/04/2025 9:47 AM EDT 08/04/2025 us Tyrell Oden MD LAB BLOOD ORDERABLES Final Result [facility] [address] [place] [address] * (ABNORMAL) Urinalysis, Complete w/reflex to Culture (08/04/2025 9:47 AM EDT) Only the most recent of2 resultswithin the time period is included. Specific [place], Urine 1.026 1.005 - 1.030 [facility] [phone] pH Urine 5.5 5.0 - 7.5 [facility] Color, Urine Yellow Yellow [facility] Appearance Urine Clear Clear [facility] WBC Esterase Urine Negative Negative [facility] Protein, Ur 1+(A) Negative/Tra ce [facility] [phone] Glucose, Ur 3+(A) Negative [facility] Ketones, Urine Negative Negative [facility] Blood Urine Negative Negative [facility] Bilirubin Urine Negative Negative [facility] Urobilinogen Urine 0.2 0.2 - 1.0 mg/dL [facility] Nitrite, Urine Negative Negative [facility] Microscopic Examination See below: [facility] Comment:Microscopic was shin cated and was performed. URINALYSIS REFLEX Comment [facility] Comment:This specimen will n ot reflex to a Urine Culture. Urine Urine specimen obtained by clean catch procedure / Unknown 08/04/2025 9:47 AM EDT 08/04/2025 Tyrell Oden MD LAB URINE ORDERABLES Final Result [facility] [address] [place] [address] * Mycophenolic Acid and Metabo. (08/04/2025 9:47 AM EDT) Only the most recent of2 resultswithin the time period is included. Pathologist [facility] Mycophenolic Acid 2.6 1.0 - 3.5 ug/mL [facility] Mycophenolic Acid Glucuronide 48 35 - 100 ug/mL [facility] Blood Venous blood / Unknown 08/04/2025 9:47 AM EDT 08/04/2025 Narrative [facility] - 08/06/2025 11:06 PM EDT Test(s) 369356-Dyoxeccyjvga Acid; 165012- Mycophenolic Acid Glucuronide was developed and its performance characteristics determined by [facility]. It has not been cleared or approved by the Food and Drug Administration. Tyrell Oden MD LAB BLOOD ORDERABLES Final Result [facility] [address] [place] [address] * Microscopic Examination (08/04/2025 9:47 AM EDT) Only the most recent of2 resultswithin the time period is included. WBC, Urine None seen 0 - 5 /hpf [facility] RBC, Urine None seen 0 - 2 /hpf [facility] Squamous Epithelial, Urine None seen 0 - 10 /hpf [facility] Casts None seen None seen /lpf [facility] Bacteria, Urine None seen None seen/Few [facility] 08/04/2025 9:47 AM EDT 08/04/2025 Tyrell Oden MD LAB MICROBIOLOGY - GENERAL ORDERABLES Final Result Performing Organization Address City/[facility]/ZIP Co de Phone Number [facility] [address] [place] [address] * (ABNORMAL) Iron Panel (Fe, TIBC, TSAT) (08/04/2025 9:47 AM EDT) Only the most recent of2 resultswithin the time period is included. Pathologist [facility] Iron 90 38 - 169 ug/dL [facility] TIBC 232(L) 250 - 450 ug/dL [facility] UIBC 142 111 - 343 ug/dL [facility] Iron Saturation (TSat) 39 15 - 55 % [facility] Blood Venous blood / Unknown 08/04/2025 9:47 AM EDT 08/04/2025 Tyrell Oden MD LAB BLOOD ORDERABLES Final Result Performing Organization Address City/[facility]/ZIP Co de Phone Number [facility] [address] [place] [address] * (ABNORMAL) Urine Albumin / Creatinine Ratio (08/04/2025 9:47 AM EDT) Only the most recent of2 resultswithin the time period is included. Creatinine, Ur 99.4 Not Estab. mg/dL [facility] Albumin, Urine 75.4 Not Estab. ug/mL [facility] Albumin/Creatin ine Ratio 76(H) 0 - 29 mg/g creat [facility] Comment: Normal: 0 - 29 Moderately increased: 30 - 300 Severely increased: >300 Urine Urine specimen obtained by clean catch procedure / Unknown 08/04/2025 9:47 AM EDT 08/04/2025 Tyrell Oden MD LAB URINE ORDERABLES Final Result Performing Organization Address [facility] Co de Phone Number [facility] [address] [place] [address] * BK Virus Urine, Quant PCR (08/04/2025 9:47 AM EDT) Only the most recent of2 resultswithin the time period is included. BK VIRUS PCR, QUANT, U 754,000 Negative IU/mL [facility] Comment:The linear range of the assay is 200 - 100,000,000 IU/ml log10 BK Qn PCR Ur 5.877 log10 IU/mL [facility] Urine Urine specimen obtained by clean catch procedure / Unknown 08/04/2025 9:47 AM EDT 08/04/2025 Tyrell Oden MD LAB URINE ORDERABLES Final Result Performing Organization Address City/[facility]/ZIP Co de Phone Number [facility] [address] [place] [address] * BK Virus DNA, Quant PCR (08/04/2025 9:47 AM EDT) Only the most recent of2 resultswithin the time period is included. BK VIRUS DNA, PCR 95 Negative IU/mL [facility] Comment:The linear range of the assay is 22 - 100,000,000 IU/mL. log10 BK Qn PCR, Plasma or Serum 1.978 log10 IU/mL [facility] Blood Venous blood / Unknown 08/04/2025 9:47 AM EDT 08/04/2025 us Tyrell Oden MD LAB BLOOD ORDERABLES Final Result [facility] [address] [place] [address] * (ABNORMAL) CBC and Differential (08/04/2025 9:47 AM EDT) Only the most recent of2 resultswithin the time period is included. WBC 3.4 3.4 - 10.8 x10E3/uL [facility] RBC 4.02(L) 4.14 - 5.80 x10E6/uL [facility] Hemoglobin 12.0(L) 13.0 - 17.7 g/dL [facility] Hematocrit 37.6 37.5 - 51.0 % [facility] MCV 94 79 - 97 fL [facility] MCH 29.9 26.6 - 33.0 pg [facility] MCHC 31.9 31.5 - 35.7 g/dL [facility] RDW 13.6 11.6 - 15.4 % [facility] Platelets 143(L) 150 - 450 x10E3/uL [facility] Neutrophils Relative 39 Not Estab. % [facility] Lymphocytes Relative 39 Not Estab. % [facility] Monocytes 12 Not Estab. % [facility] Eosinophils Relative 3 Not Estab. % [facility] Basophils Relative 4 Not Estab. % [facility] Immature Cells Note [facility] Neutrophils Absolute 1.3(L) 1.4 - 7.0 x10E3/uL [facility] Lymphocytes Absolute 1.3 0.7 - 3.1 x10E3/uL [facility] Monocytes Absolute 0.4 0.1 - 0.9 x10E3/uL [facility] Eosinophils Absolute 0.1 0.0 - 0.4 x10E3/uL [facility] Basophils Absolute 0.1 0.0 - 0.2 x10E3/uL [facility] Comment: Note: [facility] Comment: CBC met reflex criteria for review of peripheral smear by medical laboratory professional. Manual differential was performed. Blood Venous blood / Unknown 08/04/2025 9:47 AM EDT 08/04/2025 Tyrell Oden MD LAB BLOOD ORDERABLES Final Result [facility] [address] [place] [address] * ALT (08/04/2025 9:47 AM EDT) Only the most recent of2 resultswithin the time period is included. ALT (SGPT) 16 0 - 44 IU/L [facility] Blood Venous blood / Unknown 08/04/2025 9:47 AM EDT 08/04/2025 Tyrell Oden MD LAB BLOOD ORDERABLES Final Result [facility] [address] [place] [address] * AST (08/04/2025 9:47 AM EDT) Only the most recent of2 resultswithin the time period is included. AST (SGOT) 24 0 - 40 IU/L [facility] Blood Venous blood / Unknown 08/04/2025 9:47 AM EDT 08/04/2025 Tyrell Oden MD LAB BLOOD ORDERABLES Final Result [facility] [address] [place] [address] * (ABNORMAL) PTH, Intact (08/04/2025 9:47 AM EDT) Only the most recent of2 resultswithin the time period is included. PTH 239(H) 15 - 65 pg/mL [facility] Blood Venous blood / Unknown 08/04/2025 9:47 AM EDT 08/04/2025 us Tyrell Oden MD LAB BLOOD ORDERABLES Final Result [facility] [address] [place] [address] * (ABNORMAL) Ferritin (08/04/2025 9:47 AM EDT) Only the most recent of2 resultswithin the time period is included. Ferritin 1,177(H) 30 - 400 ng/mL [facility] Blood Venous blood / Unknown 08/04/2025 9:47 AM EDT 08/04/2025 us Tyrell Oden MD LAB BLOOD ORDERABLES Final Result Performing Organization Address City/[facility]/ZIP Co de Phone Number [facility] [address] [place] [address] * CK (08/04/2025 9:47 AM EDT) Only the most recent of2 resultswithin the time period is included. Creatine Kinase (CK/CPK) 76 41 - 331 U/L [facility] Blood Venous blood / Unknown 08/04/2025 9:47 AM EDT 08/04/2025 Tyrell Oden MD LAB BLOOD ORDERABLES Final Result Performing Organization Address [facility] Co de Phone Number [facility] [address] [place] [address] * (ABNORMAL) Renal Function Panel (08/04/2025 9:47 AM EDT) Only the most recent of2 resultswithin the time period is included. Glucose 110(H) 70 - 99 mg/dL [facility] BUN 36(H) 8 - 27 mg/dL [facility] Creatinine 1.60(H) 0.76 - 1.27 mg/dL [facility] eGFR CKD-EPI CR 2020 45(L) >59 mL/min/1.7 3 [facility] BUN/Creatinine Ratio 23 10 - 24 [facility] Sodium 142 134 - 144 mmol/L [facility] Potassium 4.8 3.5 - 5.2 mmol/L [facility] Chloride 110(H) 96 - 106 mmol/L [facility] Bicarbonate (CO2) 16(L) 20 - 29 mmol/L [facility] Calcium 10.1 8.6 - 10.2 mg/dL [facility] Albumin 4.2 3.8 - 4.8 g/dL [facility] Phosphorus 2.8 2.8 - 4.1 mg/dL [facility] Blood Venous blood / Unknown 08/04/2025 9:47 AM EDT 08/04/2025 Tyrell Oden MD LAB BLOOD ORDERABLES Final Result [facility] [address] [place] [address] * BK Virus, Quantitative PCR, Urine (06/10/2025 8:16 AM EDT) BKV DNA # Ur PCR 1,500,000 Negative IU/mL [facility] Comment:The linear range of the assay is 200 - 100,000,000 IU/ml log10 BK Qn PCR Ur 6.176 log10 IU/mL [facility] 06/10/2025 8:16 AM EDT 06/10/2025 Tyrell Oden MD LAB URINE ORDERABLES Final Result Performing Organization Address City/[facility]/ZIP Co de Phone Number [facility] [address] [place] [address] * (ABNORMAL) Hemoglobin A1c (10/09/2024 10:12 AM EST) Hemoglobin A1C 5.8(H) 4.8 - 5.6 % [facility] Comment: Prediabetes: 5.7 - 6.4 Diabetes: >6.4 Glycemic control for adults with diabetes: <7.0 Blood specimen (specimen) Venous blood / Unknown 10/09/2024 10:12 AM EST 10/09/2024 Christopher THOMAS LAB BLOOD ORDERABLES Final Re sult [facility] [address] [place] [address] from Last 3 Months or Most Recently Relevant to Health Maintenance Insurance [facility] Medicare Medicare [facility] Care Teams Bindery Technician Relationship Specialty Start Date End Date Jonatan Anthony MD [facility] [place] [address] [place], [place] PCP - General Internal Medicine 04/29/22
--- OUTSIDE RECORDS SUMMARY | 2025-08-08 14:58 | XMS_ITS | Encounter Summary ---
Author Organization [facility], Address [address] [place] [address] Phone Care Team Providers Care Print Production Manager Name Role Phone Jonatan Anthony MD Primary Care Provider [phone] Reason for Visit * Reason Comments Med Refill Encounter Details Date Type Department Care Team (Late Contact Info) Description 03/01/2022 Refill [facility] [address] [place] [address] Tyrell Oden MD [address] [place] [address] [place] [address] Social History Tobacco Use Types [...] Clinical Support [facility] [address] [place] [address] Heather Hernandez FNP-C [address] [place] [address] [place] [address] documented as of this encounter Visit Diagnoses Not on filedocumented in this encounter Care Teams Print Production Manager Relationship Specialty Start Date End Date Jonatan Anthony MD [facility] [address] [place] PCP - General Internal Medicine 04/29/22 documented as of this encounter
--- OUTSIDE RECORDS SUMMARY | 2025-08-08 14:58 | XMS_ITS | Clinical Summary ---
Author Organization [facility] Address [address] [place] [address] Care Team Providers Care Clinical Counselor Name Role Phone Unavailable Primary Care Provider [...]
--- OUTSIDE RECORDS SUMMARY | 2025-08-08 14:58 | XMS_ITS | Encounter Summary ---
Author Organization [facility] Address [address] [place] [address] Phone Care Team Providers Care Powerhouse Electrician Apprentice Name Role Phone Jonatan Anthony MD Primary Care Provider [phone] Encounter Details Date Type Department Care Team ([facility] Contact Info) Description 08/26/2024 Documentation Only [facility] [place], [address] [place] [address] Essence King [place] [address] [place] [address] Social History Tobacco Use Types [...] Support [facility] [place] [address] [place] [address] Heather Hernandez FNP-C [address] [place] [address] documented as of this encounter Visit Diagnoses Not on filedocumented in this encounter Care Teams Powerhouse Electrician Apprentice Relationship Specialty Start Date End Date Jonatan Anthony MD [facility] [address] [place] PCP - General Internal Medicine 04/29/22 documented as of this encounter
--- OUTSIDE RECORDS SUMMARY | 2025-08-08 14:58 | XMS_ITS | Encounter Summary ---
Author Organization [facility], Address [address] [place] [address] Phone Care Team Providers Care Process Description Writer Name Role Phone Jonatan Anthony MD Primary Care Provider [phone] Reason for Visit * Reason Comments Med Refill Encounter Details Date Type Department Care Team (Late Contact Info) Description 11/18/2022 Refill [facility] [address] [place] [address] Tyrell Oden MD [address] [place] [address] [place] [address] Social History Tobacco Use Types [...] & Transplant Services [facility] [address] [place] [address] Heather Hernandez FNP-C [address] [place] [address] [place] [address] documented as of this encounter Visit Diagnoses Not on filedocumented in this encounter Care Teams Process Description Writer Relationship Specialty Start Date End Date Jonatan Anthony MD [facility] [address] [place] PCP - General Internal Medicine 04/29/22 documented as of this encounter
--- OUTSIDE RECORDS SUMMARY | 2025-08-08 14:58 | XMS_ITS | Encounter Summary ---
Author Organization [facility], Address [address] [place] [address] Phone Care Team Providers Care Pricing Lead Name Role Phone Jonatan Anthony MD Primary Care Provider [phone] Reason for Visit * Reason Comments Med Refill Encounter Details Date Type Department Care Team (Late Contact Info) Description 06/27/2023 Refill [facility] [address] [place] [address] Christopher Caicedo PA [address] [place] [address] [place] [address] Social History Tobacco Use Types [...] Clinical Support [facility] [address] [place] [address] Heather Hernandez FNP-C [address] [place] [address] documented as of this encounter Visit Diagnoses Not on filedocumented in this encounter Care Teams Pricing Lead Relationship Specialty Start Date End Date Jonatan Anthony MD [facility] [address] [place] PCP - General Internal Medicine 04/29/22 documented as of this encounter
--- OUTSIDE RECORDS SUMMARY | 2025-08-08 14:58 | XMS_ITS | Encounter Summary ---
Author Organization [facility], Address [address] [place] [address] Phone Care Team Providers Care Nurse Sane Name Role Phone Jonatan Anthony MD Primary Care Provider [phone] Reason for Visit * Reason Comments Med Refill Encounter Details Date Type Department Care Team (Late Contact Info) Description 01/31/2023 Refill [facility] [address] [place] [address] Christopher Caicedo PA [address] [place] [address] [place] [address] Social History Tobacco Use Types [...] Clinical Support [facility] [address] [place] [address] Heather Hernandez FNP-C [address] [place] [address] documented as of this encounter Visit Diagnoses Not on filedocumented in this encounter Care Teams Nurse Sane Relationship Specialty Start Date End Date Jonatan Anthony MD [facility] [address] [place] PCP - General Internal Medicine 04/29/22 documented as of this encounter
--- OUTSIDE RECORDS SUMMARY | 2025-08-08 14:58 | XMS_ITS | Encounter Summary ---
Author Organization [facility], Address [address] [place] [address] Phone Care Team Providers Care Family And Consumer Sciences Teacher Name Role Phone Jonatan Anthony MD Primary Care Provider [phone] Reason for Visit * Reason Comments Med Refill Encounter Details Date Type Department Care Team (Late Contact Info) Description 06/21/2023 Refill [facility] [address] [place] [address] Tyrell Oden MD [address] [place] [address] [place] [address] Social History Tobacco Use Types [...] Clinical Support [facility] [address] [place] [place] [address] Heather Hernandez FNP-C [address] [place] [address] [place] [address] documented as of this encounter Visit Diagnoses Not on filedocumented in this encounter Care Teams Family And Consumer Sciences Teacher Relationship Specialty Start Date End Date Jonatan Anthony MD [facility] [address] [place] PCP - General Internal Medicine 04/29/22 documented as of this encounter
--- OUTSIDE RECORDS SUMMARY | 2025-08-08 14:58 | XMS_ITS | Encounter Summary ---
Author Organization [facility] Address [address] [place] [address] Phone Care Team Providers Care Senior Field Engineer Name Role Phone Jonatan Anthony MD Primary Care Provider [phone] Encounter Details Date Type Department Care Team ([facility] Contact Info) Description 10/28/2024 Documentation Only [facility] [place], [address] [place] [address] Maddy Nunez [place] [address] [place] [address] Social History Tobacco Use Types [...] Support [facility] [place] [address] [place] [address] Heather Hernandez FNP-C [address] [place] [address] documented as of this encounter Visit Diagnoses Not on filedocumented in this encounter Care Teams Senior Field Engineer Relationship Specialty Start Date End Date Jonatan Anthony MD [facility] [place] [address] [place] PCP - General Internal Medicine 04/29/22 documented as of this encounter
--- OUTSIDE RECORDS SUMMARY | 2025-08-08 14:58 | XMS_ITS | Encounter Summary ---
Author Organization [facility] Address [address] [place] [address] Phone Care Team Providers Care Arcgis Developer Name Role Phone Jonatan Anthony MD Primary Care Provider [phone] Encounter Details Date Type Department Care Team ([facility] Contact Info) Description 12/27/2023 Documentation Only [facility] [address] [address] Nadja Moss [address] [place] [address] Social History Tobacco Use Types [...] Support [facility] [place] [address] [place] [address] Heather Hernandez FNP-C [address] [place] [address] documented as of this encounter Visit Diagnoses Not on filedocumented in this encounter Care Teams Arcgis Developer Relationship Specialty Start Date End Date Jonatan Anthony MD [facility] [place] [address] [place], [place] PCP - General Internal Medicine 04/29/22 documented as of this encounter
--- OUTSIDE RECORDS SUMMARY | 2025-08-08 14:58 | XMS_ITS | Clinical Summary ---
Author Organization [facility] Address [address] [place] [address] Phone Care Team Providers Care Stage Settings Painter Name Role Phone Walt Silveira MD Primary [...] file Insurance MEDICARE PART A & B [employer]) MEDEX SUPPLEMENT MEDICARE PART A & B [employer] ([employer]) MEDEX SUPPLEMENT MEDICARE PART A & B [employer] ([employer]) MEDEX SUPPLEMENT MEDICARE PART A & B [employer] ([employer]) MEDEX SUPPLEMENT MEDICARE PART A & B Member Subscriber Plan / Payer (Ef fective 2015-Present) Name:Maninder Pack Member ID:[id number] Relation to Subscriber:Self Name:Maninder Pack Subscriber ID:[id number] Payer ID:[id number] Group ID:Not on file Type:Medicare Address: [employer] [address] [facility] CROSS MEDEX SUPPLEMENT MEDICARE PART A & B [facility] CROSS MEDEX SUPPLEMENT Care Teams Stage Settings Painter Relationship Specialty Start Date End Date Walt Silveira MD [address] [place] [address], [address] [place] [address] [email or web address] PCP - General Neurology 02/19/25 Additional Source Comments The information contained in this document represents components of the legal health record. It is not the complete legal health record.[facility]
--- OUTSIDE RECORDS SUMMARY | 2025-08-08 14:58 | XMS_ITS | Encounter Summary ---
Author Organization [facility] Address [address] [place] [address] Phone Care Team Providers Care Founder And Ceo Name Role Phone Jonatan Anthony MD Primary Care Provider [phone] Encounter Details Date Type Department Care Team ([facility] Contact Info) Description 09/17/2024 Documentation Only [facility] [place], [address] [place] [address] Maddy Nunez [place] [address] [place] [address] Social History Tobacco Use Types [...] Support [facility] [place] [address] [place] [address] Heather Hernandez FNP-C [address] [place] [address] documented as of this encounter Visit Diagnoses Not on filedocumented in this encounter Care Teams Founder And Ceo Relationship Specialty Start Date End Date Jonatan Anthony MD [facility] [place] [address] [place] PCP - General Internal Medicine 04/29/22 documented as of this encounter
--- OUTSIDE RECORDS SUMMARY | 2025-08-08 14:58 | XMS_ITS | Encounter Summary ---
Author Organization [facility], Address [address] [place] [address] Phone Care Team Providers Care Roll Repairer Name Role Phone Jonatan Anthony MD Primary Care Provider [phone] Reason for Visit * Reason Comments Med Refill Encounter Details Date Type Department Care Team (Late Contact Info) Description 02/24/2023 [facility]ill [facility] [address] [place] [address] Christopher Caicedo PA [address] [place] [address] [place] [address] Social History Tobacco Use Types [...] Clinical Support [facility] [address] [place] [address] Heather Hernandez FNP-C [address] [place] [address] documented as of this encounter Visit Diagnoses Not on filedocumented in this encounter Care Teams Roll Repairer Relationship Specialty Start Date End Date Jonatan Anthony MD [facility] [address] [place] PCP - General Internal Medicine 04/29/22 documented as of this encounter
--- OUTSIDE RECORDS SUMMARY | 2025-08-08 14:58 | XMS_ITS | Encounter Summary ---
Author Organization [facility] Address [address] [place] [address] Phone Care Team Providers Care Darklight Inspector Name Role Phone Jonatan Anthony MD Primary Care Provider [phone] Encounter Details Date Type Department Care Team (Late Contact Info) Description 06/13/2023 Documentation Only [facility] [place], [address] [place] [address] Christopher Caicedo PA [address] [place] [place] [address] Social History Tobacco Use Types [...] Support [facility] [place] [address] [place] [address] Heather Hernandez FNP-C [address] [place] [place] [address] documented as of this encounter Visit Diagnoses Not on filedocumented in this encounter Care Teams Darklight Inspector Relationship Specialty Start Date End Date Jonatan Anthony MD [facility] [place] [address] [place] PCP - General Internal Medicine 04/29/22 documented as of this encounter
--- OUTSIDE RECORDS SUMMARY | 2025-08-08 14:58 | XMS_ITS | Encounter Summary ---
Author Organization [facility] Address [address] [place] [address] Phone Care Team Providers Care Travel Freight And Passenger Agent Name Role Phone Jonatan Anthony MD Primary Care Provider [phone] Encounter Details Date Type Department Care Team ([facility] Contact Info) Description 08/26/2024 Documentation Only [facility] [place], [address] [place] [address] Essence [place] [address] [place] [address] Social History Tobacco Use [...] Support [facility] [place] [address] [place] [address] Heather Hernandez FNP-C [address] [place] [address] documented as of this encounter Visit Diagnoses Not on filedocumented in this encounter Care Teams Travel Freight And Passenger Agent Relationship Specialty Start Date End Date Jonatan Anthony MD [facility] [place] [address] [place] PCP - General Internal Medicine 04/29/22 documented as of this encounter
[2025-08-08 15:04] VITALS: BP 132/62; PULSE 64; O2SAT 97; BMI 28.6
--- NOTE | 2025-08-08 15:04 | A.OFFPC_ITS ---
Vital Signs 08/08/25 15:04 Height 5 ft 6 in Weight 177 lb BMI 28.6 BP 132/62 Blood Pressure Location Rt brachial Position Sitting Pulse 64 Pulse Source Pulse Oximeter Pulse Oximetry (%) 97 Oxygen Delivery Method Room Air Intake Visit Reasons: follow up Allergies Penicillins (PENICILLINS) Allergy (Unknown, Verified 08/08/25 15:04) UNKNOWN rosuvastatin (From Crestor) Allergy (Verified 08/08/25 15:04) Muscle Pain atorvastatin (From Lipitor) Adverse Reaction (Verified 08/08/25 15:04) Muscle Pain Tobacco use date assessed: 07/25/25 Fall risk assessment: No Falls in past year Last assessed Fall Risk: 08/08/25 Dental Screening Dental Screen Date: 07/25/25 [facility] Medical History Chronic kidney disease Influenza A Community acquired bacterial pneumonia Anal fissure Screening for prostate cancer Hypercholesterolemia Hepatitis C virus infection cured after antiviral drug therapy Obesity (BMI 30-39.9) BPH (benign prostatic hyperplasia) Pulmonary nodule, left Right patella fracture Cervical spondylosis Anemia HTN (hypertension) Kidney failure Surgical History History of esophagogastroduodenoscopy (EGD) History of renal transplant History of colonoscopy History of cholecystectomy Fistula of artery Family History Father No problems noted. Mother No problems noted. Brother No problems noted. Brother No problems noted. Social History Household Members: Spouse Housing: House Do you presently have visiting nurse or other home services: No Alcohol intake: former Comment: quit 2004 Patient Tobacco Use Status: Former Tobacco user Tobacco use type: Cigarette Years Smoked: quit 1995 e-Cigarette/Vaping Use: Never Used Second Hand Smoke Exposure: Yes Advance Directives Date on File: 02/04/21 service: No Current occupational status: retired Cognitive needs: No Hearing needs: No Vision needs: Yes Questionnaire Thrive Questionnaire Date Thrive assessed: 04/03/25 I am a: Patient What is your living situation today?: I have a steady place to live Within the past 12 months, did the food you bought not last and you didn't have the money to get more?: Never true Within the past 12 months, did you worry whether your food would run out before you got money to buy more?: Sometimes True Do you have trouble paying for medicines?: No Do you have trouble getting transportation to medical appointments?: No Do you have trouble paying your heating and electricity bill?: No Do you have trouble taking care of your child, family member or friend?: No Do you have trouble with day-to-day activities such as bathing, preparing meals, shopping, managing finances, etc.?: No Are you currently unemployed and looking for a job?: No Are you interested in more education?: No Please select the resources that you would like help with: Paying for medicine Currently or been in a relationship where the following occur: No concerns reported THRIVE Score: 1 LESA-7 AMB Questionnaire LESA-7 Date LESA - 7 assessed: 07/25/25 Source: Developed by Drs. Giuliano العلي, Nguyen Bañuelos, Tristan Perales and colleagues, with an educational gabby from [employer]. Physical exam (Primary Care) Vital Signs: Last Vital Signs Pulse 64 08/08/25 15:04 BP 132/62 08/08/25 15:04 Pulse Ox 97 08/08/25 15:04 Oxygen Delivery Method Room Air 08/08/25 15:04 BMI result Body Mass Index 28.6 Tobacco/Smoking Status: Tobacco use Status Tobacco use date assessed 07/25/25 08/08/25 15:05 Patient Tobacco Use Status Former Tobacco user 08/08/25 15:05 Tobacco use type Cigarette 08/08/25 15:05 e-Cigarette/Vaping Use Never Used 08/08/25 15:05 Thrive Assessment: Date of Thrive Assessment Date Thrive assessed 04/03/25 08/08/25 15:05 Currently or been in a relationship where the following occur: No concerns reported Const General: alert; No acute distress HENMT Other: Noted white cheesy discharge noted on the ear Eyes Conjunctivae: conjunctivae normal Resp Auscultation: clear to auscultation bilaterally Cardio Rate: regular rate Rhythm: regular rhythm GI Inspection: Yes normal to inspection Extrem General: Yes normal to inspection and No edema Results AMB Hemoglobin A1c AMB Hemoglobin A1c 5.3 % Last Edit by Delores Rahman CMA on 08/08/25 15 :24 Results Reviewed Results Reviewed: Laboratory Last Values Hgb A1c (Clinic) 5.3 % (4.0-6.0) 08/08/25 15:05 Coding Level of Care Code Est Pt Level 4 (67064) Complex EM visit Add On G2211 Diagnoses Type 2 diabetes mellitus with hyperglycemia, without long-term current use of insulin E11.65 Diabetes mellitus terminal operations supervisor insulin use: without detention use Obesity (BMI 30-39.9) E66.9 Essential hypertension I10 Hypertension type: essential hypertension Hypercholesterolemia E78.00 Hepatitis B core antibody positive R76.8 Renal transplant recipient Z94.0 CKD (chronic kidney disease) stage 4, GFR 15-29 ml/min N18.4 Anemia due to chronic kidney disease, on chronic dialysis N18.6; D63.1; Z99.2 Anemia type: due to chronic kidney disease Chronic kidney disease stage: on chronic dialysis Dementia F03.90 Obstructive sleep apnea (adult) (pediatric) G47.33 History of recurrent ear infection Z86.69 Assessment & Plan Assessment & Plan (1) Type 2 diabetes mellitus with hyperglycemia: Comment: Eye and [facility] Code(s): E11.65 - Type 2 diabetes mellitus with hyperglycemia Category: Medical Qualifiers: Diabetes mellitus detention insulin use: without detention use Qualified Code(s): E11.65 - Type 2 diabetes mellitus with hyperglycemia Plan: Decrease the amount of carbohydrate intake, pasta, bread, rice and potatoes are all sugar and that is aside from all the sweet stuff, remember that fruits are good but they are Sweet also. Hemoglobin A1c goal of less than 7.0 patient is on Jardiance at 10 mg once a day (2) Obesity (BMI 30-39.9): Code(s): E66.9 - Obesity, unspecified Category: Medical Plan: Diet and exercise (3) HTN (hypertension): Code(s): I10 - Essential (primary) hypertension Category: Medical Qualifiers: Hypertension type: essential hypertension Qualified Code(s): I10 - Essential (primary) hypertension Plan: Continue with blood pressure medication. Decrease salt intake and exercise patient is on spironolactone 25 mg once a day nifedipine 60 mg twice a day lisinopril 40 mg once a day carvedilol 25 mg twice a day (4) Hypercholesterolemia: Comment: Statin intolerant Code(s): E78.00 - Pure hypercholesterolemia, unspecified Category: Medical Plan: Avoid fried foods, chicken skin, eggs, butter margarine, pastries and meat. Be it pork or beef they have a lot of cholesterol patient is taking Zetia 10 mg once a day and statin intolerant (5) Hepatitis B core antibody positive: Code(s): R76.8 - Other specified abnormal immunological findings in serum Category: Medical Plan: Patient is being followed up by Gastroenterology because of low viremia continuing to monitor (6) Renal transplant recipient: Comment: [facility] renal transplant right iliac fossa September 2021 Code(s): Z94.0 - Kidney transplant status Category: Surgical Plan: Continue to follow-up with Nephrology patient is on mycophenolate (7) CKD (chronic kidney disease) stage 4, GFR 15-29 ml/min: Code(s): N18.4 - Chronic kidney disease, stage 4 (severe) Category: Medical Plan: Keep well hydrated avoid NSAIDs (8) Anemia: Code(s): D64.9 - Anemia, unspecified Category: Medical Qualifiers: Anemia type: due to chronic kidney disease Chronic kidney disease stage: on chronic dialysis Qualified Code(s): N18.6 - End stage renal disease; D63.1 - Anemia in chronic kidney disease; Z99.2 - Dependence on renal dialysis Plan: Continue to monitor (9) Dementia: Comment: Dr. Olivares Code(s): F03.90 - Unspecified dementia, unspecified severity, without behavioral disturbance, psychotic disturbance, mood disturbance, and anxiety Category: Medical Plan: Patient on donepezil (10) Obstructive sleep apnea (adult) (pediatric): Comment: CPAP Code(s): G47.33 - Obstructive sleep apnea (adult) (pediatric) Category: Medical (11) History of recurrent ear infection: Code(s): Z86.69 - Personal history of other diseases of the nervous system and sense organs Category: Medical Plan: Concern about fungal elements in the right ear. Clotrimazole solution prescription sent in to instill to the right ear twice a day for 1-2 weeks. Plan History of Present Illness The patient is a 75-year-old male presenting for a follow-up visit. The patient has a history of diabetes mellitus, managed with Jardiance 10 mg once daily, alongside diet and exercise recommendations. The goal for hemoglobin A1c is less than 7.0%. The patient underwent a renal transplant in 2020 and is currently on Mycophenolate. Renal function is stable with creatinine at 1.74 mg/dL, which is baseline for the patient. The patient is advised to maintain hydration and avoid NSAIDs. Hypertension is managed with spironolactone 25 mg once daily, nifedipine 60 mg twice daily, lisinopril 40 mg once daily, and carvedilol 25 mg twice daily. The patient has hypercholesterolemia and is statin intolerant, currently taking Zetia 10 mg once daily. LDL cholesterol is 121 mg/dL, with a target of less than 100 mg/dL. The patient has obstructive sleep apnea and uses a CPAP machine. Chronic kidney disease is present, with stable renal function as noted. The patient has chronic hepatitis B with no viremia and no indication for antiviral treatment. Anemia is noted with hemoglobin at 11.6 g/dL, and mild leukopenia is present. The patient reports memory loss, with a neurology consultation noting early Alzheimer's disease. The patient experiences ear discomfort, with a noted white cheesy discharge in the ear. Health Maintenance - Colonoscopy scheduled for preventative care - Flu shot received, advised to get future shots in August Social History Review of Systems - Neurological: Reports memory loss - Ear/Nose/Throat: Reports ear discomfort, stuffiness, and occasional pain Physical Exam - Ear: White cheesy discharge noted in the ear Results - Labs: Hemoglobin 11.6 g/dL, mild leukopenia, creatinine 1.74 mg/dL, BUN 37 mg/dL, calcium 10.9 mg/dL, LDL cholesterol 121 mg/dL Plan Patient was informed and verbally consented to the use of an ambient scribe for clinic note documentation during this visit. 1. Diabetes Mellitus The patient is managed with Jardiance 10 mg once daily, with a hemoglobin A1c goal of less than 7.0%. 2. Renal Transplant Status The patient is on Mycophenolate and advised to maintain hydration and avoid NSAIDs. 3. Hypertension The patient is on spironolactone, nifedipine, lisinopril, and carvedilol for blood pressure management. 4. Hypercholesterolemia The patient is statin intolerant and is taking Zetia 10 mg once daily, with an LDL target of less than 100 mg/dL. 5. Obstructive Sleep Apnea The patient uses a CPAP machine for management. 6. Chronic Kidney Disease Renal function is stable with creatinine at 1.74 mg/dL, which is baseline for the patient. 7. Chronic Hepatitis B The patient has no viremia and no indication for antiviral treatment. 8. Anemia Anemia is noted with hemoglobin at 11.6 g/dL. 9. Memory Loss The patient reports memory loss, with a neurology consultation noting early Alzheimer's disease. 10. Ear Discomfort The patient experiences ear discomfort, with a noted white cheesy discharge in the ear. Discussion Notes During the visit, we discussed the management of diabetes with a focus on ma intaining hemoglobin A1c below 7.0% using Jardiance. We reviewed the patient's renal transplant status, emphasizing the importance of hydration and avoiding NSAIDs. Hypertension management was addressed with the current medication regimen. For hypercholesterolemia, we acknowledged the patient's statin intolerance and continued Zetia therapy. We also discussed the stable status of chronic kidney disease and the management of chronic hepatitis B without antiviral treatment. The patient was advised on the importance of scheduling a colonoscopy for preventative care and the timing of flu vaccinations. Ear discomfort was noted, and appropriate management was discussed. Patient Instructions - Continue taking Jardiance 10 mg once daily for diabetes management. - Maintain hydration and avoid NSAIDs to support kidney health. - Follow the current medication regimen for hypertension and hypercholesterolemia. - Use CPAP machine as prescribed for obstructive sleep apnea. - Schedule and attend the colonoscopy for preventative care. - Plan to receive future flu shots in August. - Monitor ear discomfort and follow up if symptoms persist. Orders: Orders AMB Hemoglobin A1c Today Z13.9 - Encounter for screening, unspecified Medications: New clotrimazole 1% apply twice daily to R ear 1 appl topical BID 10 mL 0RF 2 weeks
== END 2025-08-08 16:23 | disposition home or self-care (01) ==
LOC: HO.HMCH 14:55
PROVIDERS: PCP Internal Medicine; Visit Provider Internal Medicine
DX: I12.9 Hypertensive chronic kidney disease with stage 1 through stage 4 chronic kidney disease, or unspecified chronic kidney disease (principal); E11.65 Type 2 diabetes mellitus with hyperglycemia; N18.4 Chronic kidney disease, stage 4 (severe); N18.6 End stage renal disease; F03.90 Unspecified dementia, unspecified severity, without behavioral disturbance, psychotic disturbance, mood disturbance, and anxiety; E78.00 Pure hypercholesterolemia, unspecified; Z94.0 Kidney transplant status; D63.1 Anemia in chronic kidney disease; Z99.2 Dependence on renal dialysis; G47.33 Obstructive sleep apnea (adult) (pediatric); Z86.69 Personal history of other diseases of the nervous system and sense organs

== ENCOUNTER → 2025-08-08 14:54 | Outpatient (BNVA) | payer MEDICARE, SELFPAY | PROVIDERS: PCP Internal Medicine; Visit Provider Internal Medicine | DX: E11.65 Type 2 diabetes mellitus with hyperglycemia (principal); E11.22 Type 2 diabetes mellitus with diabetic chronic kidney disease; I12.9 Hypertensive chronic kidney disease with stage 1 through stage 4 chronic kidney disease, or unspecified chronic kidney disease; E78.00 Pure hypercholesterolemia, unspecified; R76.8 Other specified abnormal immunological findings in serum; N18.6 End stage renal disease; D63.1 Anemia in chronic kidney disease; F03.90 Unspecified dementia, unspecified severity, without behavioral disturbance, psychotic disturbance, mood disturbance, and anxiety; G47.33 Obstructive sleep apnea (adult) (pediatric); Z86.69 Personal history of other diseases of the nervous system and sense organs; Z94.0 Kidney transplant status; Z99.2 Dependence on renal dialysis; Z99.89 Dependence on other enabling machines and devices | CPT/HCPCS: 83036; 99212 ==

== ENCOUNTER 2025-09-18 06:34 | Day surgery (SDC) | payer MEDICARE, SELFPAY ==
--- OUTSIDE RECORDS SUMMARY | 2024-07-04 06:00 | XMS_ITS ---
Author Organization [facility] Address [address] [place] [address] Care Team Providers Care Crossbar Frame Wirer Name Role Phone Jonatan Anthony Primary Care Provider Leticia Matthews [phone] REASON FOR VISIT Seen Sooner Encounters Encounter Location Date Provider Diagnosis [facility] [address] [place] [address] 07/04/2024 Leticia Dwyer Plan Of Treatment Next Appt Details Provider Name:Leticia Dwyer , 09/29/2025 04:00:00 PM, [address] [place], [address], Progress Notes * Maninder PACKDOB: [birth year] (75 yo M)Acc No.[id number]:07/04/2024 Progress Note Patient: Maninder CARVER Provider: Cindy Dwyer DPM :1950 A ge:74 Y S ex:Male Date:07/04/2024 Address:[address] [place] [address] Pcp:Jonatan Anthony Subjective: * Chief Complaints: * [...] 07/04/2024 Generated for Sven montes/Swati/Alizeitting on: 0 08/14/2025 04:46 PM EDT
--- OUTSIDE RECORDS SUMMARY | 2025-08-14 16:46 | XMS_ITS | Encounter Summary ---
Author Organization [facility] Address [address] [place] [address] Phone Care Team Providers Care Auger Supervisor Name Role Phone Jonatan Anthony MD Primary Care Provider [phone] Reason for Visit * Reason Comments Med Refill Encounter Details Date Type Department Care Team (Late st Contact Info) Description 08/26/2023 Refill [facility] [place], [address] [place] [address] Tyrell Oden MD [address] [place] [address] [place] [address] Social History Tobacco Use Types [...] Support [facility] [place] [address] [place] [address] Heather Hernandez FNP-C [address] [place] [address] documented as of this encounter Visit Diagnoses Not on filedocumented in this encounter Care Teams Auger Supervisor Relationship Specialty Start Date End Date Jonatan Anthony MD [facility] [address] [place] [place] PCP - General Internal Medicine 04/29/22 documented as of this encounter
--- OUTSIDE RECORDS SUMMARY | 2025-08-14 16:46 | XMS_ITS | Encounter Summary ---
Author Organization [facility] Address [address] [place] [address] Phone Care Team Providers Care Cone Marker Name Role Phone Jonatan Anthony MD Primary Care Provider [phone] Encounter Details Date Type Department Care Team (Late Contact Info) Description 06/13/2023 Documentation Only [facility] [place], [address] [place] [address] Christopher Caicedo PA [address] [place] [address] Social History Tobacco Use Types [...] Support [facility] [place] [address] [place] [address] Heather Hernandez FNP-C [address] [place] [address] documented as of this encounter Visit Diagnoses Not on filedocumented in this encounter Care Teams Cone Marker Relationship Specialty Start Date End Date Jonatan Anthony MD [facility] [place] [address] [place] PCP - General Internal Medicine 04/29/22 documented as of this encounter
--- OUTSIDE RECORDS SUMMARY | 2025-08-14 16:46 | XMS_ITS | Encounter Summary ---
Author Organization [facility] Address [address] [place] [address] Phone Care Team Providers Care Electronics Instructor Name Role Phone Jonatan Anthony MD Primary Care Provider [phone] Encounter Details Date Type Department Care Team (Late Contact Info) Description 09/21/2023 Documentation Only [facility] [address] [place] [address] Tryell Oden MD [address] [place] [address] [place] [address] Social History Tobacco Use Types [...] Support [facility] [place] [address] [place] [address] Heather Hernandez FNP-C [address] [place] [address] documented as of this encounter Visit Diagnoses Not on filedocumented in this encounter Care Teams Electronics Instructor Relationship Specialty Start Date End Date Jonatan Anthony MD [facility] [place] [address] [place] PCP - General Internal Medicine 04/29/22 documented as of this encounter
--- OUTSIDE RECORDS SUMMARY | 2025-08-14 16:46 | XMS_ITS | Encounter Summary ---
Author Organization [facility] Address [address] [place] [address] Phone Care Team Providers Care Coal Trimmer Name Role Phone Jonatan Anthony MD Primary Care Provider [phone] Encounter Details Date Type Department Care Team (Late Contact Info) Description 06/13/2023 Documentation Only [facility] [place], [address] [place] [address] Christopher Caicedo PA [address] [place] [place] [address] Social History Tobacco Use Types [...] Support [facility] [place] [address] [place] [address] Heather Hernandez FNP-C [address] [place] [place] [address] documented as of this encounter Visit Diagnoses Not on filedocumented in this encounter Care Teams Coal Trimmer Relationship Specialty Start Date End Date Jonatan Anthony MD [facility] [place] [address] [place] PCP - General Internal Medicine 04/29/22 documented as of this encounter
--- OUTSIDE RECORDS SUMMARY | 2025-08-14 16:46 | XMS_ITS | Encounter Summary ---
Author Organization [facility] Address [address] [place] [address] Phone Care Team Providers Care Parliamentary Librarian Name Role Phone Jonatan Anthony MD Primary Care Provider [phone] Encounter Details Date Type Department Care Team (Late Contact Info) Description 03/31/2022 Documentation Only [facility] [place], [address] [place] [address] Christopher Caicedo PA [address] [place] [address] Social History Tobacco Use Types [...] Support [facility] [place] [address] [place] [address] Heather Hernandez FNP-C [address] [place] [address] documented as of this encounter Visit Diagnoses Not on filedocumented in this encounter Care Teams Parliamentary Librarian Relationship Specialty Start Date End Date Jonatan Anthony MD [facility] [place] [address] [place] PCP - General Internal Medicine 04/29/22 documented as of this encounter
--- OUTSIDE RECORDS SUMMARY | 2025-08-14 16:46 | XMS_ITS | Encounter Summary ---
Author Organization [facility] Address [address] [place] [address] Phone Care Team Providers Care Supreme Court Judge Name Role Phone Jonatan Anthony MD Primary Care Provider [phone] Encounter Details Date Type Department Care Team ([facility] Contact Info) Description 05/01/2025 Documentation Only [facility] [place], [address] [place] [address] Maddy Nunez [place] [address] [place] [address] Social History Tobacco Use Types [...] Support [facility] [place] [address] [place] [address] Heather Hernandez FNP-C [address] [place] [address] documented as of this encounter Visit Diagnoses Not on filedocumented in this encounter Care Teams Supreme Court Judge Relationship Specialty Start Date End Date Jonatan Anthony MD [facility] [place] [address] [place] PCP - General Internal Medicine 04/29/22 documented as of this encounter
--- OUTSIDE RECORDS SUMMARY | 2025-08-14 16:46 | XMS_ITS | Encounter Summary ---
Author Organization [facility] Address [address] [place] [address] Phone Care Team Providers Care Director Of Operations Home Health Name Role Phone Jonatan Anthony MD Primary Care Provider [phone] Encounter Details Date Type Department Care Team (Late Contact Info) Description 10/05/2023 Documentation Only [facility] [address] [place] [address] Tyrell Oden MD [address] [place] [address] [place] [address] Social History Tobacco Use [...] Support [facility] [place] [address] [place] [address] Heather Hernandez FNP-C [address] [place] [address] documented as of this encounter Visit Diagnoses Not on filedocumented in this encounter Care Teams Director Of Operations Home Health Relationship Specialty Start Date End Date Jonatan Anthony MD [facility] [place] [address] [place] PCP - General Internal Medicine 04/29/22 documented as of this encounter
--- OUTSIDE RECORDS SUMMARY | 2025-08-14 16:46 | XMS_ITS | Encounter Summary ---
Author Organization [facility] [place], Address [address] [place] [address] Phone Care Team Providers Care Oceanic Sciences Professor Name Role Phone Jonatan Anthony MD Primary Care Provider [phone] Reason for Visit * Reason Comments Med Refill Encounter Details Date Type Department Care Team (Late st Contact Info) Description 11/23/2023 Refill [facility] [address] [place] [address] Christopher Caicedo PA [address] [place] [address] [place] [address] Long-term drug therapy Social History Tobacco [...] Clinical Support [facility] [address] [place] [address] Heather Hernandez FNP-C [address] [place] [address] [place] [address] documented as of this encounter Visit Diagnoses Diagnosis Long-term drug therapy documented in this encounter Care Teams Oceanic Sciences Professor Relationship Specialty Start Date End Date Jonatan Anthony MD [facility] [place] [address] [facility] [place] PCP - General Internal Medicine 04/29/22 documented as of this encounter
--- OUTSIDE RECORDS SUMMARY | 2025-08-14 16:46 | XMS_ITS | Encounter Summary ---
Author Organization [facility], Address [address] [place] [address] Phone Care Team Providers Care Interior Design Consultant Name Role Phone Jonatan Anthony MD Primary Care Provider [phone] Reason for Visit * Reason Comments Med Refill Encounter Details Date Type Department Care Team (Late Contact Info) Description 08/01/2023 [facility]ill [facility] [address] [place] [address] Christopher Caicedo PA [address] [place] [address] [place] [address] Social History Tobacco Use Types [...] Clinical Support [facility] [address] [place] [address] Heather Hernandez FNP-C [address] [place] [address] documented as of this encounter Visit Diagnoses Not on filedocumented in this encounter Care Teams Interior Design Consultant Relationship Specialty Start Date End Date Jonatan Anthony MD [facility] [address] [place] PCP - General Internal Medicine 04/29/22 documented as of this encounter
--- OUTSIDE RECORDS SUMMARY | 2025-08-14 16:47 | XMS_ITS | Encounter Summary ---
Author Organization [facility] Address [address] [place] [address] Phone Care Team Providers Care Archivist Nonprofit Foundation Name Role Phone Jonatan Anthony MD Primary Care Provider [phone] Encounter Details Date Type Department Care Team ([facility] Contact Info) Description 08/26/2024 Documentation Only [facility] [place], [address] [place] [address] Essence King [place] [address] [place] [address] Social History Tobacco Use Types [...] Support [facility] [place] [address] [place] [address] Heather Hernandez FNP-C [address] [place] [address] documented as of this encounter Visit Diagnoses Not on filedocumented in this encounter Care Teams Archivist Nonprofit Foundation Relationship Specialty Start Date End Date Jonatan Anthony MD [facility] [place] [address] [place] PCP - General Internal Medicine 04/29/22 documented as of this encounter
--- OUTSIDE RECORDS SUMMARY | 2025-08-14 16:47 | XMS_ITS | Encounter Summary ---
Author Organization [facility] Address [address] [place] [address] Phone Care Team Providers Care Roustabout Crew Pusher Name Role Phone Jonatan Anthony MD Primary Care Provider [phone] Encounter Details Date Type Department Care Team (Late Contact Info) Description 02/09/2023 Documentation Only [facility] [address] [place] [address] Christopher Caicedo PA [address] [place] [address] Social History Tobacco Use Types [...] Support [facility] [place] [address] [place] [address] Heather Hernandez FNP-C [address] [place] [address] documented as of this encounter Visit Diagnoses Not on filedocumented in this encounter Care Teams Roustabout Crew Pusher Relationship Specialty Start Date End Date Jonatan Anthony MD [facility] [place] [address] [place] PCP - General Internal Medicine 04/29/22 documented as of this encounter
--- OUTSIDE RECORDS SUMMARY | 2025-08-14 16:47 | XMS_ITS | Encounter Summary ---
Author Organization [facility], Address [address] [place] [address] Phone Care Team Providers Care Shake Packer Name Role Phone Jonatan Anthony MD Primary Care Provider [phone] Reason for Visit * Reason Comments Med Refill Encounter Details Date Type Department Care Team (Late Contact Info) Description 06/21/2023 Refill [facility] [address] [place] [address] Tyrell Oden MD [address] [place] [address] [place] [address] Social History Tobacco Use Types [...] Clinical Support [facility] [address] [place] [address] Heather Hernandez FNP-C [address] [place] [address] [place] [address] documented as of this encounter Visit Diagnoses Not on filedocumented in this encounter Care Teams Shake Packer Relationship Specialty Start Date End Date Jonatan Anthony MD [facility] [address] [place] PCP - General Internal Medicine 04/29/22 documented as of this encounter
--- OUTSIDE RECORDS SUMMARY | 2025-08-14 16:47 | XMS_ITS | Encounter Summary ---
Author Organization [facility], Address [address] [place] [address] Phone Care Team Providers Care Microsoft Bi Developer Name Role Phone Jonatan Anthony MD Primary Care Provider [phone] Reason for Visit * Reason Comments Med Refill Encounter Details Date Type Department Care Team (Late Contact Info) Description 06/27/2023 Refill [facility] [address] [place] [address] Christopher Caicedo PA [address] [place] [address] [place] [address] Social History Tobacco Use Types [...] Clinical Support [facility] [address] [place] [address] Heather Hernandez FNP-C [address] [place] [place] [address] documented as of this encounter Visit Diagnoses Not on filedocumented in this encounter Care Teams Microsoft Bi Developer Relationship Specialty Start Date End Date Jonatan Anthony MD [facility] [address] [place] PCP - General Internal Medicine 04/29/22 documented as of this encounter
--- OUTSIDE RECORDS SUMMARY | 2025-08-14 16:47 | XMS_ITS | Clinical Summary ---
Author Organization [facility] Address [address] [place] [address] Care Team Providers Care Wool Merchant Name Role Phone Unavailable Primary Care Provider [...]
--- OUTSIDE RECORDS SUMMARY | 2025-08-14 16:47 | XMS_ITS | Clinical Summary ---
Author Organization [facility] [place], Address [address] [place] [address] Phone Care Team Providers Care Sash Installer Name Role Phone Jonatan Anthony MD Primary Care Provider [phone] Allergies Active Allergy Reactions Criticality Noted Date [...] Telephone [facility] [place] [address] [place] [address] Maddy Nunez MA 07/28/2025 Orders Only [facility] [address] [place] [address] Maddy Nunez MA Kidney replaced by transplant [...] Refill [facility] [address] [place] [address] Tyrell Oden MD 06/29/2025 Refill [facility] [place] [address] [place] [address] Tyrell Oden MD 06/12/2025 3:00 PM EDT Clinical Support [facility] [address] [place] [address] Zackcharles Heather, CIRCUS LABORER-C Kidney replaced by transplant (Primary Dx); Stage 3b chronic kidney disease (HCC); Personal history of immunosuppression therapy; Hypertension 06/02/2025 Orders Only [facility] [address] [place] [address] Maddy Nunez MA Kidney replaced by transplant (Primary Dx); Personal history of immunosuppression therapy; Stage 3b chronic kidney disease (HCC); Type 2 diabetes mellitus with diabetic chronic kidney disease (HCC); Other iron deficiency anemia; Other specified hypoparathyroidism (HCC); Albuminuria, not otherwise specified; 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 Refill [facility] [address] [place] [address] Tyrell Oden MD from Last 3 Months [...] Support [facility] [place] [address] [place] [address] Heather Hernandez FNP-C [address] [place] [address] [place] [address] Health Maintenance Due Date Last Done Comments [...] Relative 3(H) 0 - 0 % [facility] 08/04/2025 9:47 AM EDT 08/04/2025 us Tyrell Oden MD LAB BLOOD ORDERABLES Final Result [facility] [address] [place] [address] * (ABNORMAL) Urinalysis, Complete w/reflex to Culture (08/04/2025 9:47 AM EDT) Only the most recent of2 resultswithin the time period is included. Specific [place], Urine 1.026 1.005 - 1.030 [facility] pH Urine 5.5 5.0 - 7.5 [facility] Color, Urine Yellow Yellow [facility] Appearance Urine Clear Clear [facility] [phone] WBC Esterase Urine Negative Negative [facility] Protein, Ur 1+(A) Negative/Tra ce [facility] Glucose, Ur 3+(A) Negative [facility] Ketones, Urine Negative Negative [facility] Blood Urine Negative Negative [facility] Bilirubin Urine Negative Negative [facility] Urobilinogen Urine 0.2 0.2 - 1.0 mg/dL [facility] Nitrite, Urine Negative [facility] Microscopic Examination See below: [facility] [phone] Comment:Microscopic was shin cated and was performed. URINALYSIS REFLEX Comment [facility] [phone] Comment:This specimen will n ot reflex to a Urine Culture. Urine Urine specimen obtained by clean catch procedure / Unknown 08/04/2025 9:47 AM EDT 08/04/2025 Tyrell Oden MD LAB URINE ORDERABLES Final Result [facility] [address] [place] [address] * Mycophenolic Acid and Metabo. (08/04/2025 9:47 AM EDT) Only the most recent of2 resultswithin the time period is included. Pathologist [facility] Mycophenolic Acid 2.6 1.0 - 3.5 ug/mL [facility] Mycophenolic Acid Glucuronide 48 35 - 100 ug/mL [facility] Blood Venous blood / Unknown 08/04/2025 9:47 AM EDT 08/04/2025 Narrative [facility] - 08/06/2025 11:06 PM EDT Test(s) 853694-Zzeiathhyyyc Acid; 028819- Mycophenolic Acid Glucuronide was developed and its performance characteristics determined by [facility]. It has not been cleared or approved by the Food and Drug Administration. Tyrell Oden MD LAB BLOOD ORDERABLES Final Result [facility] [address] [place] [address] * Microscopic Examination (08/04/2025 9:47 AM EDT) Only the most recent of2 resultswithin the time period is included. WBC, Urine None seen 0 - 5 /hpf [facility] RBC, Urine None seen 0 - 2 /hpf [facility] Squamous Epithelial, Urine None seen 0 - 10 /hpf [facility] Casts None seen None seen /lpf [facility] Bacteria, Urine None seen None seen/Few [facility] 08/04/2025 9:47 AM EDT 08/04/2025 Tyrell Oden MD LAB MICROBIOLOGY - GENERAL ORDERABLES Final Result Performing Organization Address City/[facility]/ZIP Co de Phone Number [facility] [address] [place] [address] * (ABNORMAL) Iron Panel (Fe, TIBC, TSAT) (08/04/2025 9:47 AM EDT) Only the most recent of2 resultswithin the time period is included. Pathologist [facility] Iron 90 38 - 169 ug/dL [facility] TIBC 232(L) 250 - 450 ug/dL [facility] UIBC 142 111 - 343 ug/dL [facility] Iron Saturation (TSat) 39 15 - 55 % [facility] Blood Venous blood / Unknown 08/04/2025 9:47 AM EDT 08/04/2025 Tyrell Oden MD LAB BLOOD ORDERABLES Final Result Performing Organization Address City/[facility]/ZIP Co de Phone Number [facility] [address] [place] [address] * (ABNORMAL) Urine Albumin / Creatinine Ratio (08/04/2025 9:47 AM EDT) Only the most recent of2 resultswithin the time period is included. Creatinine, Ur 99.4 Not Estab. mg/dL [facility] Albumin, Urine 75.4 Not Estab. ug/mL [facility] Albumin/Creatin ine Ratio 76(H) 0 - 29 mg/g creat [facility] Comment: Normal: 0 - 29 Moderately increased: 30 - 300 Severely increased: >300 Urine Urine specimen obtained by clean catch procedure / Unknown 08/04/2025 9:47 AM EDT 08/04/2025 Tyrell Oden MD LAB URINE ORDERABLES Final Result Performing Organization Address [facility] Co de Phone Number [facility] [address] [place] [address] * BK Virus Urine, Quant PCR (08/04/2025 9:47 AM EDT) Only the most recent of2 resultswithin the time period is included. BK VIRUS PCR, QUANT, U 754,000 Negative IU/mL [facility] Comment:The linear range of the assay is 200 - 100,000,000 IU/ml log10 BK Qn PCR Ur 5.877 log10 IU/mL [facility] Urine Urine specimen obtained by clean catch procedure / Unknown 08/04/2025 9:47 AM EDT 08/04/2025 Tyrell Oden MD LAB URINE ORDERABLES Final Result Performing Organization Address City/[facility]/ZIP Co de Phone Number [facility] [address] [place] [address] * BK Virus DNA, Quant PCR (08/04/2025 9:47 AM EDT) Only the most recent of2 resultswithin the time period is included. BK VIRUS DNA, PCR 95 Negative IU/mL [facility] Comment:The linear range of the assay is 22 - 100,000,000 IU/mL. log10 BK Qn PCR, Plasma or Serum 1.978 log10 IU/mL [facility] Blood Venous blood / Unknown 08/04/2025 9:47 AM EDT 08/04/2025 us Tyrell Oden MD LAB BLOOD ORDERABLES Final Result [facility] [address] [place] [address] * (ABNORMAL) CBC and Differential (08/04/2025 9:47 AM EDT) Only the most recent of2 resultswithin the time period is included. WBC 3.4 3.4 - 10.8 x10E3/uL [facility] RBC 4.02(L) 4.14 - 5.80 x10E6/uL [facility] Hemoglobin 12.0(L) 13.0 - 17.7 g/dL [facility] Hematocrit 37.6 37.5 - 51.0 % [facility] MCV 94 79 - 97 fL [facility] MCH 29.9 26.6 - 33.0 pg [facility] MCHC 31.9 31.5 - 35.7 g/dL [facility] RDW 13.6 11.6 - 15.4 % [facility] Platelets 143(L) 150 - 450 x10E3/uL [facility] Neutrophils Relative 39 Not Estab. % [facility] Lymphocytes Relative 39 Not Estab. % [facility] Monocytes 12 Not Estab. % [facility] Eosinophils Relative 3 Not Estab. % [facility] Basophils Relative 4 Not Estab. % [facility] Immature Cells Note [facility] Neutrophils Absolute 1.3(L) 1.4 - 7.0 x10E3/uL [facility] Lymphocytes Absolute 1.3 0.7 - 3.1 x10E3/uL [facility] Monocytes Absolute 0.4 0.1 - 0.9 x10E3/uL [facility] Eosinophils Absolute 0.1 0.0 - 0.4 x10E3/uL [facility] Basophils Absolute 0.1 0.0 - 0.2 x10E3/uL [facility] Comment: Note: [facility] Comment: CBC met reflex criteria for review of peripheral smear by medical laboratory professional. Manual differential was performed. Blood Venous blood / Unknown 08/04/2025 9:47 AM EDT 08/04/2025 Tyrell Oden MD LAB BLOOD ORDERABLES Final Result [facility] [address] [place] [address] * ALT (08/04/2025 9:47 AM EDT) Only the most recent of2 resultswithin the time period is included. ALT (SGPT) 16 0 - 44 IU/L [facility] Blood Venous blood / Unknown 08/04/2025 9:47 AM EDT 08/04/2025 Tyrell Oden MD LAB BLOOD ORDERABLES Final Result [facility] [address] [place] [address] * AST (08/04/2025 9:47 AM EDT) Only the most recent of2 resultswithin the time period is included. AST (SGOT) 24 0 - 40 IU/L [facility] Blood Venous blood / Unknown 08/04/2025 9:47 AM EDT 08/04/2025 Tyrell Oden MD LAB BLOOD ORDERABLES Final Result [facility] [address] [place] [address] * (ABNORMAL) PTH, Intact (08/04/2025 9:47 AM EDT) Only the most recent of2 resultswithin the time period is included. PTH 239(H) 15 - 65 pg/mL [facility] Blood Venous blood / Unknown 08/04/2025 9:47 AM EDT 08/04/2025 us Tyrell Oden MD LAB BLOOD ORDERABLES Final Result [facility] [address] [place] [address] * (ABNORMAL) Ferritin (08/04/2025 9:47 AM EDT) Only the most recent of2 resultswithin the time period is included. Ferritin 1,177(H) 30 - 400 ng/mL [facility] Blood Venous blood / Unknown 08/04/2025 9:47 AM EDT 08/04/2025 us Tyrell Oden MD LAB BLOOD ORDERABLES Final Result Performing Organization Address City/[facility]/ZIP Co de Phone Number [facility] [address] [place] [address] * CK (08/04/2025 9:47 AM EDT) Only the most recent of2 resultswithin the time period is included. Creatine Kinase (CK/CPK) 76 41 - 331 U/L [facility] Blood Venous blood / Unknown 08/04/2025 9:47 AM EDT 08/04/2025 Tyrell Oden MD LAB BLOOD ORDERABLES Final Result Performing Organization Address [facility] Co de Phone Number [facility] [address] [place] [address] * (ABNORMAL) Renal Function Panel (08/04/2025 9:47 AM EDT) Only the most recent of2 resultswithin the time period is included. Glucose 110(H) 70 - 99 mg/dL [facility] BUN 36(H) 8 - 27 mg/dL [facility] Creatinine 1.60(H) 0.76 - 1.27 mg/dL [facility] eGFR CKD-EPI CR 2020 45(L) >59 mL/min/1.7 3 [facility] BUN/Creatinine Ratio 23 10 - 24 [facility] Sodium 142 134 - 144 mmol/L [facility] Potassium 4.8 3.5 - 5.2 mmol/L [facility] Chloride 110(H) 96 - 106 mmol/L [facility] Bicarbonate (CO2) 16(L) 20 - 29 mmol/L [facility] Calcium 10.1 8.6 - 10.2 mg/dL [facility] Albumin 4.2 3.8 - 4.8 g/dL [facility] Phosphorus 2.8 2.8 - 4.1 mg/dL [facility] Blood Venous blood / Unknown 08/04/2025 9:47 AM EDT 08/04/2025 Tyrell Oden MD LAB BLOOD ORDERABLES Final Result [facility] [address] [place] [address] * BK Virus, Quantitative PCR, Urine (06/10/2025 8:16 AM EDT) BKV DNA # Ur PCR 1,500,000 Negative IU/mL [facility] Comment:The linear range of the assay is 200 - 100,000,000 IU/ml log10 BK Qn PCR Ur 6.176 log10 IU/mL [facility] 06/10/2025 8:16 AM EDT 06/10/2025 Tyrell Oden MD LAB URINE ORDERABLES Final Result Performing Organization Address City/[facility]/ZIP Co de Phone Number [facility] [address] [place] [address] * (ABNORMAL) Hemoglobin A1c (10/09/2024 10:12 AM EST) Hemoglobin A1C 5.8(H) 4.8 - 5.6 % [facility] Comment: Prediabetes: 5.7 - 6.4 Diabetes: >6.4 Glycemic control for adults with diabetes: <7.0 Blood specimen (specimen) Venous blood / Unknown 10/09/2024 10:12 AM EST 10/09/2024 Christopher THOMAS LAB BLOOD ORDERABLES Final Re sult [facility] [address] [place] [address] from Last 3 Months or Most Recently Relevant to Health Maintenance Insurance [facility] Medicare Medicare [facility] Care Teams Sash Installer Relationship Specialty Start Date End Date Jonatan Anthony MD [facility] [place] [address] [place], [place] PCP - General Internal Medicine 04/29/22
--- OUTSIDE RECORDS SUMMARY | 2025-08-14 16:47 | XMS_ITS | Encounter Summary ---
Author Organization [facility], Address [address] [place] [address] Phone Care Team Providers Care Dietitian Therapeutic Name Role Phone Jonatan Anthony MD Primary Care Provider [phone] Reason for Visit * Reason Comments Med Refill Encounter Details Date Type Department Care Team (Late Contact Info) Description 03/01/2022 Refill [facility] [address] [place] [address] Tyrell Oden MD [address] [place] [address] [place] [address] Social History Tobacco Use Types [...] Clinical Support [facility] [address] [place] [address] Heather Hernandez FNP-C [address] [place] [address] [place] [address] documented as of this encounter Visit Diagnoses Not on filedocumented in this encounter Care Teams Dietitian Therapeutic Relationship Specialty Start Date End Date Jonatan Anthony MD [facility] [address] PCP - General Internal Medicine 04/29/22 documented as of this encounter
--- OUTSIDE RECORDS SUMMARY | 2025-08-14 16:47 | XMS_ITS | Encounter Summary ---
Author Organization [facility] Address [address] [place] [address] Phone Care Team Providers Care Wool Classer Name Role Phone Jonatan Anthony MD Primary Care Provider [phone] Encounter Details Date Type Department Care Team ([facility] Contact Info) Description 08/26/2024 Documentation Only [facility] [place], [address] [place] [address] Essence King [place] [address] [place] [address] Social History Tobacco Use Types [...] Support [facility] [place] [address] [place] [address] Heather Hernandez FNP-C [address] [place] [address] documented as of this encounter Visit Diagnoses Not on filedocumented in this encounter Care Teams Wool Classer Relationship Specialty Start Date End Date Jonatan Anthony MD [facility] [address] [place] PCP - General Internal Medicine 04/29/22 documented as of this encounter
--- OUTSIDE RECORDS SUMMARY | 2025-08-14 16:47 | XMS_ITS | Encounter Summary ---
Author Organization [facility] Address [address] [place] [address] Phone Care Team Providers Care Public Events Facilities Rental Manager Name Role Phone Jonatan Anthony MD Primary Care Provider [phone] Encounter Details Date Type Department Care Team (Late Contact Info) Description 07/31/2023 Documentation Only [facility] [place], [address] [place] [address] Angie Martinez [address] [place] [address] Social History Tobacco Use Types Packs/Day Years [...] Support [facility] [place] [address] [place] [address] Heather Hernandez FNP-C [address] [place] [address] documented as of this encounter Visit Diagnoses Not on filedocumented in this encounter Care Teams Public Events Facilities Rental Manager Relationship Specialty Start Date End Date Jonatan Anthony MD [facility] [place] [address] [place], [place] PCP - General Internal Medicine 04/29/22 documented as of this encounter
--- OUTSIDE RECORDS SUMMARY | 2025-08-14 16:47 | XMS_ITS | Encounter Summary ---
Author Organization [facility], Address [address] [place] [address] Phone Care Team Providers Care Dairy Grazer Name Role Phone Jonatan Anthony MD Primary Care Provider [phone] Reason for Visit * Reason Comments Med Refill Encounter Details Date Type Department Care Team (Late Contact Info) Description 01/31/2023 Refill [facility] [address] [place] [address] Christopher Caicedo PA [address] [place] [address] [place] [address] Social History Tobacco Use Types [...] [facility] [address] [place] [address] Heather Hernandez FNP-C [address] [place] [address] documented as of this encounter Visit Diagnoses Not on filedocumented in this encounter Care Teams Dairy Grazer Relationship Specialty Start Date End Date Jonatan Anthony MD [facility] [address] [place] PCP - General Internal Medicine 04/29/22 documented as of this encounter
--- OUTSIDE RECORDS SUMMARY | 2025-08-14 16:47 | XMS_ITS | Encounter Summary ---
Author Organization [facility] Address [address] [place] [address] Phone Care Team Providers Care Control Room Technician Name Role Phone Jonatan Anthony MD Primary Care Provider [phone] Reason for Visit * Reason Comments Med Refill Encounter Details Date Type Department Care Team (Late Contact Info) Description 08/27/2024 Refill [facility] [address] [place] [address] Rakesh King MD Social History Tobacco Use [...] Upcoming Encounters Date Type Department Care Team ([facility] Contact Info) Description 08/28/2025 3:15 PM EDT Clinical Support [facility] [place] [address] [place] [address] Heather Hernandez FNP-C [address] [place] [address] documented as of this encounter Visit Diagnoses Not on filedocumented in this encounter Care Teams Control Room Technician Relationship Specialty Start Date End Date Jonatan Anthony MD [facility] [address] [place], [place] PCP - General Internal Medicine 04/29/22 documented as of this encounter
--- OUTSIDE RECORDS SUMMARY | 2025-08-14 16:47 | XMS_ITS | Encounter Summary ---
Author Organization [facility] Address [address] [place] [address] Phone Care Team Providers Care Clinical Medical Assistant Name Role Phone Jonatan Anthony MD Primary Care Provider [phone] Encounter Details Date Type Department Care [facility] Description 10/28/2024 Documentation Only [facility] [place], [address] [place] [address] Maddy Nunez [place] [address] [place] [address] Social History Tobacco Use Types [...] Support [facility] [place] [address] [place] [address] Heather Hernandez FNP-C [address] [place] [address] documented as of this encounter Visit Diagnoses Not on filedocumented in this encounter Care Teams Clinical Medical Assistant Relationship Specialty Start Date End Date Jonatan Anthony MD [facility] [place] [address] [place] PCP - General Internal Medicine 04/29/22 documented as of this encounter
--- OUTSIDE RECORDS SUMMARY | 2025-08-14 16:47 | XMS_ITS | Patient Health Record ---
[facility] Brad latoya KangKaz Address [address] [place] [address] Care Team Providers Care Fire Prevention Forester Name Role Phone Jonatan Anthony Primary Care Provider Leticia Matthews Unavailable [phone] Allergies Allergen (clinical drug ingredient) Drug/Non Drug [...] Problem Acquired hammer toe of right foot (9866949639191989 ) Other hammer toe(s) (acquired), right foot (M20.41) Active confirmed Problem Acquired hammer toe of left foot (4208660065989377 ) Other hammer toe(s) (acquired), left foot (M20.42) Active confirmed Problem Chronic kidney disease due to type 2 diabetes mellitus (053561518487) 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.22) Active confirmed Problem Polyneuropathy due to type 2 diabetes mellitus (439968877) Type 2 diabetes mellitus with diabetic polyneuropathy (E11.42) Active confirmed Vital Signs Blood pressure diastolic 60 mm Hg 07/17/2025 Height 5ft6in in 07/17/2025 Blood pressure systolic 132 mm Hg 07/17/2025 Weight 176 lbs 07/17/2025 BMI 28.4 kg/m2 07/17/2025 Procedures Procedure Date Ordered Date Performed Result Body Sit e 70130-ITLENDL NAIL, 6 OR MORE 09/19/2024 N/A 98575-XUIJ SKIN LESIONS, 2 TO 4 09/19/2024 N/A 88871-WYFQQCE NAIL, 6 OR MORE 12/26/2024 N/A 98891-VAUF SKIN LESIONS, 2 TO 4 12/26/2024 N/A 06230-SUMHEGP NAIL, 6 OR MORE 03/31/2025 N/A 08817-PTCK SKIN LESIONS, 2 TO 4 03/31/2025 N/A Encounters Encounter Location Date Provider Diagnosis [address] [address] 09/19/2024 Leticia Black Type 2 diabetes mellitus [...] foot M77.51 and Metatarsalgia, right foot M77.[address] [address] 12/26/2024 Leticia Black Type 2 diabetes mellitus [...] Short Achilles tendon (acquired), left ankle M67.[address] [address] 03/31/2025 Leticia Black Type 2 diabetes mellitus [...] Short Achilles tendon (acquired), left ankle M67.02 [facility] [address] [address] 07/17/2025 Leticia Reymundo Type 2 diabetes mellitus with diabetic chronic kidney disease E11.22 ; Tinea unguium B35.1 ; Type 2 diabetes mellitus with diabetic polyneuropathy E11.42 ; Other hammer toe(s) (acquired), right foot M20.41 ; Other hammer toe(s) (acquired), left foot M20.42 and Ingrown nail L60.[address] [address] 08/19/2024 Leticia Dwyer Xerosis cutis L85.[address] [address] 01/02/2025 Leticia Dwyer [address] [address] 05/22/2025 Leticia Dwyer Assessments Encounter Date Diagnosis [...] Treatment Pending Test Test Name Order Date 47006-QGOGOMD NAIL, 6 OR MORE 09/01/2022 58629-AGKUBGM NAIL, 6 OR MORE 12/08/2022 86951-MPMYRQJ NAIL, 6 OR MORE 03/09/2023 18243-JAHELFP NAIL, 6 OR MORE 12/11/2023 61028-HBQHJBN NAIL, 6 OR MORE 03/14/2024 20338-QURZQFJ NAIL, 6 OR MORE 06/13/2024 31761-YYXMROK NAIL, 6 OR MORE 09/19/2024 88360-QMEFDSS NAIL, 6 OR MORE 12/26/2024 35473-FIQWXAW NAIL, 6 OR MORE 03/31/2025 62048-Ftwwmsuq Plate 03/09/2023 42756-Cavdglvc Plate 03/14/2024 41854-YKXU SKIN LESIONS, 2 TO 4 06/13/20 24 64421-CPQA SKIN LESIONS, 2 TO 4 12/26/19 01954-UVKI SKIN LESIONS, 2 TO 4 09/19/20 98569-WHCC SKIN LESIONS, 2 TO 4 03/14/20 63882-BNHZ SKIN LESIONS, 2 TO 4 12/11/19 99300-POAA SKIN LESIONS, 2 TO 4 03/09/20 64843-KUVL SKIN LESIONS, 2 TO 4 12/08/19 06719-LCRE SKIN LESIONS, 2 TO 4 03/31/20 Next Appt Details Provider Name:Leticia Dwyer , 09/29/2025 04:00:00 PM, [address] [place] [address], [id number], Insurance Providers Payer Name Payer Address Payer Phone Subscriber Number Group Number Insured Name Patient Relationship to Insured Coverage Start Date Coverage End Date Medicare [facility] [employer] [address] [place] [address] [id number] Maninder Pack Self - patient is the insured [employer] [address] [place] [address] [phone] [id number] 1 Maninder Pack Self - patient is [...]
--- OUTSIDE RECORDS SUMMARY | 2025-08-14 16:47 | XMS_ITS | Encounter Summary ---
Author Organization [facility], Address [address] [place] [address] Phone Care Team Providers Care Scrubber Machine Tender Name Role Phone Jonatan Anthony MD Primary Care Provider [phone] Reason for Visit * Reason Comments Med Refill Encounter Details Date Type Department Care Team (Late Contact Info) Description 04/23/2023 [facility]ill [facility] [address] [place] [address] Tyrell Oden MD [address] [place] [address] [place] [address] Social History Tobacco Use Types [...] Support [facility] [address] [place] [address] Heather Hernandez FNP-C [address] [place] [address] [place] [address] documented as of this encounter Visit Diagnoses Not on filedocumented in this encounter Care Teams Scrubber Machine Tender Relationship Specialty Start Date End Date Jonatan Anthony MD [facility] [address] [place] PCP - General Internal Medicine 04/29/22 documented as of this encounter
--- OUTSIDE RECORDS SUMMARY | 2025-08-14 16:47 | XMS_ITS | Clinical Summary ---
Author Organization [facility] Address [address] [place] [address] Phone Care Team Providers Care Police Department Secretary Name Role Phone Walt Silveira MD Primary [...] file Insurance MEDICARE PART A & B [employer] MEDEX SUPPLEMENT MEDICARE PART A & B [employer] MEDEX SUPPLEMENT MEDICARE PART A & B [employer] MEDEX SUPPLEMENT MEDICARE PART A & B [employer] MEDEX SUPPLEMENT MEDICARE PART A & B Member Subscriber Plan / Payer (Ef fective 2015-Present) Name:[employer]inder [employer] Member ID:[id number] Relation to Subscriber:Self Name:Maninder Pack Subscriber ID:[id number] Payer ID:[id number] Group ID:Not on file Type:Medicare Address: [place] [id number] [employer] MEDEX SUPPLEMENT MEDICARE PART A & B [employer] MED[employer] SUPPLEMENT Care Teams Police Department Secretary Relationship Specialty Start Date End Date Walt Silveira MD [address] [place] [address], [address] [place] [address] [email or web address] PCP - General Neurology 02/19/25 Additional Source Comments The information contained in this document represents components of the legal health record. It is not the complete legal health record.[facility]
--- OUTSIDE RECORDS SUMMARY | 2025-08-14 16:47 | XMS_ITS | Encounter Summary ---
Author Organization [facility] Address [address] [place] [address] Phone Care Team Providers Care Tobacco Stemmer Name Role Phone Jonatan Anthony MD Primary Care Provider [phone] Encounter Details Date Type Department Care Team ([facility] Contact Info) Description 01/06/2023 Documentation Only [facility] [place], [address] [place] [address] Essence King [place] [address] [place] [address] Social History Tobacco Use Types [...] Support [facility] [place] [address] [place] [address] Heather Hernandez FNP-C [address] [place] [address] documented as of this encounter Visit Diagnoses Not on filedocumented in this encounter Care Teams Tobacco Stemmer Relationship Specialty Start Date End Date Jonatan Anthony MD [facility] [place] [address] [place] PCP - General Internal Medicine 04/29/22 documented as of this encounter
--- OUTSIDE RECORDS SUMMARY | 2025-08-14 16:47 | XMS_ITS | Encounter Summary ---
Author Organization [facility], Address [address] [place] [address] Phone Care Team Providers Care Oceanography Teacher Name Role Phone Jonaatn Anthony MD Primary Care Provider [phone] Reason for Visit * Reason Comments Med Refill Encounter Details Date Type Department Care Team (Late Contact Info) Description 02/24/2023 Refill [facility] [address] [place] [address] Christopher Caicedo PA [address] [place] [address] [place] [address] Social History Tobacco Use Types [...] Clinical Support [facility] [address] [place] [address] Heather Hernandez FNP-C [address] [place] [address] documented as of this encounter Visit Diagnoses Not on filedocumented in this encounter Care Teams Oceanography Teacher Relationship Specialty Start Date End Date Jonatan Anthony MD [facility] [address] [place] PCP - General Internal Medicine 04/29/22 documented as of this encounter
--- OUTSIDE RECORDS SUMMARY | 2025-08-14 16:47 | XMS_ITS | Encounter Summary ---
Author Organization [facility], Address [address] [place] [address] Phone Care Team Providers Care Digital Imager Name Role Phone Jonatan Anthony MD Primary Care Provider [phone] Reason for Visit * Reason Comments Med Refill Encounter Details Date Type Department Care Team (Late Contact Info) Description 12/26/2022 Refill [facility] [address] [place] [address] Tyrell Oden MD [address] [place] [address] [place] [address] Social History Tobacco Use Types [...] Clinical Support [facility] [address] [place] [address] Heather Hernandez FNP-C [address] [place] [address] [place] [address] documented as of this encounter Visit Diagnoses Not on filedocumented in this encounter Care Teams Digital Imager Relationship Specialty Start Date End Date Jonatan Anthony MD [facility] [address] [place] PCP - General Internal Medicine 04/29/22 documented as of this encounter
--- OUTSIDE RECORDS SUMMARY | 2025-08-14 16:47 | XMS_ITS | Encounter Summary ---
Author Organization [facility] Address [address] [place] [address] Phone Care Team Providers Care Edi Programmer Name Role Phone Jonatan Anthony MD Primary Care Provider [phone] Encounter Details Date Type Department Care Team ([facility] Contact Info) Description 09/17/2024 Documentation Only [facility] [place], [address] [place] [address] Maddy Nunez [place] [address] [place] [address] Social History Tobacco Use Types [...] Support [facility] [place] [address] [place] [address] Heather Hernandez FNP-C [address] [place] [address] documented as of this encounter Visit Diagnoses Not on filedocumented in this encounter Care Teams Edi Programmer Relationship Specialty Start Date End Date Jonatan Anthony MD [facility] [place] [address] [place] PCP - General Internal Medicine 04/29/22 documented as of this encounter
--- OUTSIDE RECORDS SUMMARY | 2025-08-14 16:48 | XMS_ITS | Encounter Summary ---
Author Organization [facility] Address [address] [place] [address] Phone Care Team Providers Care Compliance Paralegal Name Role Phone Jonatan Anthony MD Primary Care Provider [phone] Encounter Details Date Type Department Care Team ([facility] Contact Info) Description 01/15/2025 Documentation Only [facility] [place], [address] [place] [address] Maddy Nunez [place] [address] [place] [address] Social History Tobacco Use Types [...] Support [facility] [place] [address] [place] [address] Heather Hernandez FNP-C [address] [place] [address] documented as of this encounter Visit Diagnoses Not on filedocumented in this encounter Care Teams Compliance Paralegal Relationship Specialty Start Date End Date Jonatan Anthony MD [facility] [place] [address] [place] PCP - General Internal Medicine 04/29/22 documented as of this encounter
--- OUTSIDE RECORDS SUMMARY | 2025-08-14 16:48 | XMS_ITS | Encounter Summary ---
Author Organization [facility] Address [address] [place] [address] Phone Care Team Providers Care Bush And Vine Farmer Fruit Crops Name Role Phone Jonatan Anthony MD Primary Care Provider [phone] Reason for Visit * Reason Comments Med Refill Encounter Details Date Type Department Care Team (Late Contact Info) Description 03/27/2024 Refill [facility], [address] [place] [address] Giuliano [place] MD [address] [place] [address] Social History Tobacco Use Types [...] Support [facility] [place] [address] [place] [address] Heather Hernandez, CONTRACTS REPRESENTATIVE-C [address] [place] [address] documented as of this encounter Visit Diagnoses Not on filedocumented in this encounter Care Teams Bush And Vine Farmer Fruit Crops Relationship Specialty Start Date End Date Jonatan Anthony MD [facility] [address] [place] PCP - General Internal Medicine 04/29/22 documented as of this encounter
--- OUTSIDE RECORDS SUMMARY | 2025-08-14 16:48 | XMS_ITS | Encounter Summary ---
Author Organization [facility] Address [address] [place] [address] Phone Care Team Providers Care Human Resource Statistician Name Role Phone Jonatan Anthony MD Primary Care Provider [phone] Encounter Details Date Type Department Care Team ([facility] Contact Info) Description 12/27/2023 Documentation Only [facility] [address] [place] [address] Nadja Moss [address] [place] [address] Social History Tobacco Use Types [...] Support [facility] [place] [address] [place] [address] Heather Hernandez FNP-C [address] [place] [address] documented as of this encounter Visit Diagnoses Not on filedocumented in this encounter Care Teams Human Resource Statistician Relationship Specialty Start Date End Date Jonatan Anthony MD [facility] [place] [address] [place], [place] PCP - General Internal Medicine 04/29/22 documented as of this encounter
--- OUTSIDE RECORDS SUMMARY | 2025-08-14 16:48 | XMS_ITS | Encounter Summary ---
Author Organization [facility], Address [address] [place] [address] Phone Care Team Providers Care Physician In Private Practice Name Role Phone Jonatan Anthony MD Primary Care Provider Reason for Visit * Reason Comments Med Refill Encounter Details Date Type Department Care Team (Late Contact Info) Description 11/18/2022 Refill [facility] [address] [place] [address] Tyrell Oden MD [address] [place] [address] [place] [address] Social History Tobacco Use Types [...] Support [facility] [address] [place] [address] Heather Hernandez FNP-C [address] [place] [address] [place] [address] documented as of this encounter Visit Diagnoses Not on filedocumented in this encounter Care Teams Physician In Private Practice Relationship Specialty Start Date End Date Jonatan Anthony MD [facility] [address] [place] PCP - General Internal Medicine 04/29/22 documented as of this encounter
--- NOTE | 2025-09-15 14:55 | HO.ANESPROP2 ---
Documented by User: Marissa Metz NP 09/15/25 15:00 HPI - Anesthesia Eval Consult details Narrative: 75 yr old male for colonoscopy Underwent a renal transplant in 2020 and is currently on Mycophenolate. Renal function is stable with creatinine at 1.74 mg/dL, which is baseline for the patient. YANETH: uses CPAP Anesthesia Pre-Procedure Meds Is the patient on any of the following meds?: SGLT2 Inhib PMFSH Active Problems Active Problems: All Active Problems Colon cancer screening (Acute) Otitis media (Acute) History of recurrent ear infection (Acute) Penicillin allergy (Acute) Otitis media, right (Acute) Pilonidal abscess (Acute) Influenza A (Acute) Community acquired bacterial pneumonia (Acute) Epidermal cyst (Acute) Eczema (Acute) Medicare annual wellness visit, subsequent (Acute) Encounter for colorectal cancer screening (Acute) Chronic hepatitis B (Acute) Sore throat (Acute) Right heart failure (Acute) Rectal pain (Acute) Anal fissure (Acute) Zoster (Acute) External hemorrhoids (Acute) CKD (chronic kidney disease) stage 4, GFR 15-29 ml/min (Acute) TRINO (acute kidney injury) (Acute) Hypercalcemia (Acute) Rectal bleed (Acute) Hypervolemia (Acute) Hepatitis B core antibody positive (Acute) COVID-19 (Acute) Type 2 diabetes mellitus with hyperglycemia (Acute) Erectile dysfunction (Acute) Hearing loss (Acute) Gout (Acute) Tinnitus (Acute) Obstructive sleep apnea (adult) (pediatric) (Acute) Renal transplant recipient (Acute) Adult general medical exam (Acute) Abdominal pain (Acute) Bloating (Acute) Elevated alkaline phosphatase level (Acute) History of hepatitis C (Acute) Dementia (Acute) Pulmonary nodule, left (Acute) Hypercholesterolemia (Acute) Obesity (BMI 30-39.9) (Acute) HTN (hypertension) (Acute) Anemia (Acute) Past Medical History Medical History (Updated 09/16/25 @ 12:18 by Orin Montejo RN) Refusal of blood transfusions as patient is Christianity YANETH (obstructive sleep apnea) Diabetes Chronic kidney disease Anal fissure Hypercholesterolemia Hepatitis C virus infection cured after antiviral drug therapy Obesity (BMI 30-39.9) BPH (benign prostatic hyperplasia) Pulmonary nodule, left Right patella fracture Cervical spondylosis Anemia HTN (hypertension) Kidney failure Family History Family History Father No problems noted. Mother No problems noted. Brother No problems noted. Brother No problems noted. Family history of problems with anesthesia: No Surgical History Surgical History (Updated 09/18/25 @ 07:19 by Lianet Marie RN) History of esophagogastroduodenoscopy (EGD) History of renal transplant History of colonoscopy History of cholecystectomy Fistula of artery History of Problems with Anesthesia: No Social History Social History Household Members: Spouse Housing: House Do you presently have visiting nurse or other home services: No Alcohol intake: former Comment: quit 2004 Patient Tobacco Use Status: Former Tobacco user Tobacco use type: Cigarette Years Smoked: quit 1995 e-Cigarette/Vaping Use: Never Used Second Hand Smoke Exposure: Yes Use of substances other than those prescribed or required for medical reasons: No Are you DNR?: No Advance Directives: No Advance Directives Information Provided: Yes Advance Directives Date on File: 02/04/21 service: No Current occupational status: retired Cognitive needs: No Hearing needs: No Vision needs: Yes Meds Allergies Allergy/AdvReac Type Severity Reaction Status Date / Time rosuvastatin (From Crestor) Allergy Muscle Pain Verified 08/08/25 15:04 atorvastatin (From Lipitor) AdvReac Muscle Pain Verified 08/08/25 15:04 Home Medications ?Medication ?Instructions ?Recorded ?Confirmed ?Last Taken ?Type folic acid 1 mg tablet 1 mg PO DAILY 02/08/22 09/16/25 Unknown History carvedilol 25 mg tablet 25 mg PO BID 01/11/23 09/16/25 09/18/25 History cinacalcet 30 mg tablet 30 mg PO DAILY 01/11/23 09/16/25 02/16/23 History blood sugar diagnostic (FreeStyle #10 ea 03/01/23 07/25/25 Unknown History Lite Strips) blood-glucose meter (FreeStyle #1 ea 03/01/23 07/25/25 Unknown History Lite Meter kit) lancets 28 gauge (FreeStyle #100 ea 03/01/23 07/25/25 Unknown History Lancets) mycophenolate sodium 360 mg 360 mg PO DAILY 03/01/23 09/18/25 09/18/25 History tablet,delayed release empagliflozin 10 mg tablet 10 mg PO DAILY 06/05/23 09/18/25 09/14/25 History (Jardiance) multivitamin with minerals 1 tab PO DAILY 06/05/23 09/16/25 Unknown History spironolactone 25 mg tablet 25 mg PO DAILY 06/05/23 09/16/25 Unknown History torsemide 20 mg tablet 60 mg PO BID 06/05/23 09/16/25 Unknown History gabapentin 300 mg capsule 300 mg PO DAILY 06/15/23 09/16/25 Unknown History doxazosin 4 mg tablet 2 mg PO BEDTIME 08/08/23 09/16/25 Unknown History ammonium lactate 12 % topical cream 1 appl topical BID 08/07/24 09/16/25 Unknown History ezetimibe 10 mg tablet 10 mg PO DAILY 08/07/24 09/16/25 Unknown History lisinopril 40 mg tablet 40 mg PO DAILY 08/06/25 09/16/25 Unknown History mycophenolate sodium 180 mg 180 mg PO DAILY@1700 08/06/25 09/18/25 Unknown History tablet,delayed release nifedipine 60 mg tablet,extended 60 mg PO BID 08/06/25 09/16/25 09/18/25 History release tamsulosin 0.4 mg capsule 0.8 mg PO QPM 08/06/25 09/16/25 Unknown History Exam Pertinent Lab Results Pertinent Lab Results: Laboratory Tests 04/08/25 08/04/25 09:28 06:51 WBC 3.1 L RBC 4.01 L Hgb 11.6 L Hct 36.7 L Plt Count 167 Sodium 139 Potassium 4.8 Chloride 110 H Carbon Dioxide 23 BUN 37 H Creatinine 1.74 H Assessment and Plan Final Anesthetic Review Family History of Problems with Anesthesia: No History of Problems with Anesthesia: No Documented by User: Manasa Simon MD 09/18/25 07:48 [facility] Past Medical History Medical History (Updated 09/16/25 @ 12:18 by Orin Montejo RN) Refusal of blood transfusions as patient is Christianity YANETH (obstructive sleep apnea) Diabetes Chronic kidney disease Anal fissure Hypercholesterolemia Hepatitis C virus infection cured after antiviral drug therapy Obesity (BMI 30-39.9) BPH (benign prostatic hyperplasia) Pulmonary nodule, left Right patella fracture Cervical spondylosis Anemia HTN (hypertension) Kidney failure Family History Family History Father No problems noted. Mother No problems noted. Brother No problems noted. Brother No problems noted. Surgical History Surgical History (Updated 09/18/25 @ 07:19 by Lianet Marie RN) History of esophagogastroduodenoscopy (EGD) History of renal transplant History of colonoscopy History of cholecystectomy Fistula of artery Social History Social History Household Members: Spouse Housing: House Do you presently have visiting nurse or other home services: No Alcohol intake: former Comment: quit 2004 Patient Tobacco Use Status: Former Tobacco user Tobacco use type: Cigarette Years Smoked: quit 1995 e-Cigarette/Vaping Use: Never Used Second Hand Smoke Exposure: Yes Use of substances other than those prescribed or required for medical reasons: No Are you DNR?: No Advance Directives: No Advance Directives Information Provided: Yes Advance Directives Date on File: 02/04/21 service: No Current occupational status: retired Cognitive needs: No Hearing needs: No Vision needs: Yes Meds Allergies Allergy/AdvReac Type Severity Reaction Status Date / Time rosuvastatin (From Crestor) Allergy Muscle Pain Verified 08/08/25 15:04 atorvastatin (From Lipitor) AdvReac Muscle Pain Verified 08/08/25 15:04 Home Medications ?Medication ?Instructions ?Recorded ?Confirmed ?Last Taken ?Type folic acid 1 mg tablet 1 mg PO DAILY 02/08/22 09/16/25 Unknown History carvedilol 25 mg tablet 25 mg PO BID 01/11/23 09/16/25 09/18/25 History cinacalcet 30 mg tablet 30 mg PO DAILY 01/11/23 09/16/25 02/16/23 History blood sugar diagnostic (Nicyle #10 ea 03/01/23 07/25/25 Unknown History Lite Strips) blood-glucose meter (FreeStyle #1 ea 03/01/23 07/25/25 Unknown History Lite Meter kit) lancets 28 gauge (FreeStyle #100 ea 03/01/23 07/25/25 Unknown History Lancets) mycophenolate sodium 360 mg 360 mg PO DAILY 03/01/23 09/18/25 09/18/25 History tablet,delayed release empagliflozin 10 mg tablet 10 mg PO DAILY 06/05/23 09/18/25 09/14/25 History (Jardiance) multivitamin with minerals 1 tab PO DAILY 06/05/23 09/16/25 Unknown History spironolactone 25 mg tablet 25 mg PO DAILY 06/05/23 09/16/25 Unknown History torsemide 20 mg tablet 60 mg PO BID 06/05/23 09/16/25 Unknown History gabapentin 300 mg capsule 300 mg PO DAILY 06/15/23 09/16/25 Unknown History doxazosin 4 mg tablet 2 mg PO BEDTIME 08/08/23 09/16/25 Unknown History ammonium lactate 12 % topical cream 1 appl topical BID 08/07/24 09/16/25 Unknown History ezetimibe 10 mg tablet 10 mg PO DAILY 08/07/24 09/16/25 Unknown History lisinopril 40 mg tablet 40 mg PO DAILY 08/06/25 09/16/25 Unknown History mycophenolate sodium 180 mg 180 mg PO DAILY@1700 08/06/25 09/18/25 Unknown History tablet,delayed release nifedipine 60 mg tablet,extended 60 mg PO BID 08/06/25 09/16/25 09/18/25 History release tamsulosin 0.4 mg capsule 0.8 mg PO QPM 08/06/25 09/16/25 Unknown History Exam Airway Mallampati Class: II (couple missing, denies anything loose) TM Dist: >3cm Neck ROM: Full Heart: rrr Lungs: cta Assessment and Plan Assessment Anesthesia Assessment: Anesthesia Plan Discussed and Chart Reviewed Final Anesthetic Review NPO: Yes ASA Class: III Final Preanesthetic Review: No Changes in Pt Med Stat, Meds/Allgs Chart Reviewed and Consent Obtained/Reviewed Patient Risk: Low Procedure Risk: Low Anesthetic Plan Anesthetic Plan: MAC: Disposition: Standard PACU
[2025-09-16 12:05] VITALS: BMI 28.1
[2025-09-18 07:20] VITALS: BMI 27.7
[2025-09-18 07:33] VITALS: BP 135/52; PULSE 61; RESP 16; TEMP 36.6; O2SAT 99
[2025-09-18 07:40] LABS: Glucose, Whole Blood 113 mg/dL (60-115)
[2025-09-18] MEDS: Lactated Ringers 1,000 ML 100 ML IVCONT (07:42)
--- NOTE | 2025-09-18 07:46 | MHC.SHP ---
Pre-Procedural Eval Section A - 24 Hr Update-Section A only Date of Service: 09/18/25 Section B - Complete if H&P > 30 days Chief Complaint: SCREENING Details of Present Illness: Chronic kidney disease Influenza A Community acquired bacterial pneumonia Anal fissure Screening for prostate cancer Hypercholesterolemia Hepatitis C virus infection cured after antiviral drug therapy Obesity (BMI 30-39.9) BPH (benign prostatic hyperplasia) Pulmonary nodule, left Right patella fracture Cervical spondylosis Anemia HTN (hypertension) Kidney failure Surgical History History of esophagogastroduodenoscopy (EGD) History of renal transplant History of colonoscopy History of cholecystectomy Fistula of artery Present Medications: see Short Stay Collaborative assessment Allergies: Allergies Allergy/AdvReac Type Severity Reaction Status Date / Time rosuvastatin (From Crestor) Allergy Muscle Pain Verified 08/08/25 15:04 atorvastatin (From Lipitor) AdvReac Muscle Pain Verified 08/08/25 15:04 Review of Systems Review of Systems Comment: Ten point ROS negative Exam Exam Comment: Gen appear: No acute distress HEENT: no icterus Chest: No overt resp distress Abd: soft, nontender, nondistended Psych: Stable affect, answering questions appropriately Neuro: A/Ox3 noted to move all extremities spontaneously Ext: no peripheral edema Plan Diagnosis/Plan: Unchanged I have reviewed the history and physical and performed a pertinent physical examination on my patient. No changes have occurred unless specified. Time Spent With Patient Time: Total time managing care of this patient today ____ minutes.
--- NOTE | 2025-09-18 08:28 | P.OPN-COLO_ITS ---
Colonoscopy Operative Note Operative Note Date of Service: 09/18/25 Narrative: Procedure: Colonoscopy Indication: Screening Endoscopist: Reena Flores MD Anesthesia Provider: Dr Manasa Alonzo Anesthesia type: MAC Instrument: Olympus [id number]-H190L Consent: Indication, risks vs benefits, and alternatives were discussed with the patient who gave written informed consent to proceed. EKG, pulse, pulse oximetry and blood pressure were monitored throughout the procedure. Please see anesthesia flowsheet. Procedure: The patient was brought to the procedure room and placed in the left lateral decubitus position. IV medications were administered by the anesthesia provider in attendance. A digital rectal exam was performed which was abnormal due to finding of hemorrhoids. A distal attachment cap was affixed to the tip of the colonoscope which was then inserted through the anus and advanced through the colon to the cecum at 75 cm,and terminal ileum. Appendiceal orifice and ileocecal valve were identified. Mucosa was carefully examined under high definition white light as the instrument was slowly withdrawn in a retrograde panoramic fashion. Retroflexion was performed in rectum. The procedure was not difficult. There were no immediate obvious complications. The quality of the prep was BBPS: 2+2+2 = adequate Withdrawal time 13 minutes. Limitations: No limitations. Findings: Mucosa: Normal to cecum and terminal ileum. Mild hyperpigmentation of colon mucosa noted consistent with melanosis coli. Protruding lesions: * 1 sessile polyp of size 5 mm in ascending colon. Cold snare polypectomy was performed. The polyp was completely removed and retrieved. * 1 sessile polyp of size 4 mm in sigmoid colon. Cold snare polypectomy was performed. The polyp was completely removed and retrieved. * Medium internal hemorrhoids without stigmata of recent bleeding. Excavated lesions: * Mild diverticulosis of sigmoid colon. Impression: 1. Melanosis coli 2. Total of 2 polyps removed 3. Diverticulosis 4. External and internal hemorrhoids Recommendations: - Follow path results. - Repeat colonoscopy in 5-7 years if polyps are adenomas or sessile serrated.
[2025-09-18 08:58] VITALS: BP 125/49; PULSE 67; RESP 16; TEMP 36.2; O2SAT 99
[2025-09-18 09:13] VITALS: BP 135/55; PULSE 60; RESP 15; TEMP 36.5; O2SAT 99
== END 2025-09-18 09:40 | disposition home or self-care (01) ==
PROVIDERS: PCP Internal Medicine; Visit Provider Internal Medicine
PROC: 0DJD8ZZ Inspection of Lower Intestinal Tract, Via Natural or Artificial Opening Endoscopic (ICD-10-PCS; CPT 45378; principal; 2025-09-18 08:20)
DX: Z12.11 Encounter for screening for malignant neoplasm of colon (principal); K64.4 Residual hemorrhoidal skin tags; K64.8 Other hemorrhoids; K63.89 Other specified diseases of intestine; K57.30 Diverticulosis of large intestine without perforation or abscess without bleeding; D12.2 Benign neoplasm of ascending colon
CPT/HCPCS: 45385; 82947; 88305; J2704

== ENCOUNTER → 2025-09-18 06:34 | Outpatient (BNV) | payer MEDICARE, SELFPAY | PROVIDERS: PCP Internal Medicine; Visit Provider Internal Medicine | DX: Z12.11 Encounter for screening for malignant neoplasm of colon (principal); K63.89 Other specified diseases of intestine; K63.5 Polyp of colon; K57.30 Diverticulosis of large intestine without perforation or abscess without bleeding; K64.8 Other hemorrhoids | CPT/HCPCS: 45385 ==

== ENCOUNTER 2025-10-28 06:52 | Outpatient (REF) | payer MEDICARE, SELFPAY ==
--- OUTSIDE RECORDS SUMMARY | 2024-07-04 05:00 | XMS_ITS ---
Author Organization [facility] Address [address] [place] [address] Care Team Providers Care Customer Development Manager Name Role Phone Jonatan Anthony Primary Care Provider Leticia Matthews [phone] REASON FOR VISIT Seen Sooner Encounters Encounter Location Date Provider Diagnosis [facility] [address] [place] [address] 07/04/2024 Leticia Dwyer Plan Of Treatment Next Appt Details Provider Name:Leticia Dwyer , 01/26/2026 11:00:00 AM, [address] [place], [address], Progress Notes * Maninder PACKDOB: [birth year] (75 yo M)Acc No.[id number]:07/04/2024 Progress Note Patient: Maninder CARVER Provider: Cindy Dwyer DPM :1950 A ge:74 Y S ex:Male Date:07/04/2024 Address:[address] [place] [address] Pcp:Jonatan Anthony Subjective: * Chief Complaints: * 1 . Seen Sooner. * Medical History: Objective: * Vitals: Assessment: Plan: * Treatment: * Images: * The named appointment provid er may or may not be the originator of this progress note, and it is not deemed complete until electronically signed by the appointment provider. Sign off status: Pending * Provider: Cindy Dwyer DPM Date: 0 07/04/2024 Generated for Sven montes/Swati/Navya on: 1 12/29/2024 06:54 AM EST
--- OUTSIDE RECORDS SUMMARY | 2025-10-28 06:54 | XMS_ITS | Encounter Summary ---
Author Organization [facility] Address [address] [place] [address] Phone Care Team Providers Care President Finance Company Name Role Phone Jonatan Anthony MD Primary Care Provider [phone] Encounter Details Date Type Department Care Team (Late Contact Info) Description 06/13/2023 Documentation Only [facility] [address] [place] [address] Christopher Caicedo PA [address] [place] [address] [place] [address] Social History Tobacco Use Types [...] on file documented as of this encounter Functional Status documented as of this encounter Plan of Treatment Upcoming Encounters Date Type Department Care Team (Late Contact Info) Description 10/29/2025 11:00 AM EST Office Visit [facility] [address] [place] [address] Tyrell Oden MD [address] [facility] [address] [facility] [place] [address] documented as of this encounter Visit Diagnoses Not on filedocumented in this encounter Care Teams President Finance Company Relationship Specialty Start Date End Date Po, Lorenver, MD [facility] [address] [place] PCP - General Internal Medicine 04/29/22 documented as of this encounter
--- OUTSIDE RECORDS SUMMARY | 2025-10-28 06:54 | XMS_ITS | Encounter Summary ---
Author Organization [facility] Address [address] [place] [address] Phone Care Team Providers Care Meter Calibrator Name Role Phone Jonatan Anthony MD Primary Care Provider [phone] Encounter Details Date Type Department Care Team ([facility] Contact Info) Description 07/31/2023 Documentation Only [facility] [address] [place] [address] Angie Martinez [address] [place] [id number] Social History Tobacco Use Types Packs/Day Years [...] Visit [facility] [address] [place] [address] Tyrell Oden MD [address] [facility] [place] [phone] documented as of this encounter Visit Diagnoses Not on filedocumented in this encounter Care Teams Meter Calibrator Relationship Specialty Start Date End Date Jonatan Anthony MD [facility] [place] [address] [place] PCP - General Internal Medicine 04/29/22 documented as of this encounter
--- OUTSIDE RECORDS SUMMARY | 2025-10-28 06:54 | XMS_ITS | Clinical Summary ---
Author Organization [facility] Address [address] [place] [address] Care Team Providers Care Casting Technician Name Role Phone Unavailable Primary Care Provider Unavailabl e Social History Tobacco Use Types Packs/Day Years Used Date Smoking Tobacco: Never Assessed Sex and Gender Information Value Date Recorded Sex Assigned at Not on file Legal Sex Male 5:46 AM EST Gender Identity Not on file Sexual Orientation Not on file Plan of Treatment Health Maintenance Due Date Last Done Comments Colorectal Cancer Screening: Colonoscopy 1950 Diabetes: Annual GFR (Glomerular Filtration Rate) 1950 Diabetes: Annual Foot Exam 1960 Diabetes: Annual Retina Eye Exam 1960 Zoster Vaccines (1 of 2) 11/01/2013 09/06/2013 Pneumococcal Vaccine: 50+ Years (3 of 3 - PCV20 or PCV21) 03/14/2017 01/17/2017, 09/12/2016, 09/07/2007 DTaP,Tdap,and Td Vaccines (3 - Td or Tdap) 01/24/2024 01/23/2014, 10/18/2007 Depression Screening 11/20/2024 Cholesterol Screening (Lipid Panel) 02/12/2025 Diabetes: Annual Urine Albumin-Creatinine Ratio (uACR) [...]
--- OUTSIDE RECORDS SUMMARY | 2025-10-28 06:54 | XMS_ITS | Encounter Summary ---
Author Organization [facility] Address [address] [place] [address] Phone Care Team Providers Care Windows Systems Architect Name Role Phone Jonatan Anthony MD Primary Care Provider [phone] Encounter Details Date Type Department Care Team (Late Contact Info) Description 06/13/2023 Documentation Only [facility] [address] [place] [address] Christopher Caicedo PA [address] [place] [address] [place] [address] Social History Tobacco Use Types [...] [facility] [address] [place] [address] Tyrell Oden MD [address] [facility] [place] [address] documented as of this encounter Visit Diagnoses Not on filedocumented in this encounter Care Teams Windows Systems Architect Relationship Specialty Start Date End Date Po, Lorenver, MD [facility] [place] [place] [address] [place] PCP - General Internal Medicine 04/29/22 documented as of this encounter
--- OUTSIDE RECORDS SUMMARY | 2025-10-28 06:54 | XMS_ITS | Encounter Summary ---
Author Organization [facility], Address [address] [place] [address] Phone Care Team Providers Care Automated Logistics Specialist Name Role Phone Jonatan Anthony MD Primary Care Provider [phone] Reason for Visit * Reason Comments Med Refill Encounter Details Date Type Department Care Team (Late Contact Info) Description 03/01/2022 Refill [facility] [address] [place] [address] Tyrell Oden MD [address] [place] [address] [place] [address] Social History Tobacco Use Types [...] Office Visit [facility] [address] [place] [address] Tyrell Oden MD [address] [place] [address] [place] [address] documented as of this encounter Visit Diagnoses Not on filedocumented in this encounter Care Teams Automated Logistics Specialist Relationship Specialty Start Date End Date Jonatan Anthony MD [facility] INTER[facility] [place] [address] [place] PCP - General Internal Medicine 04/29/22 documented as of this encounter
--- OUTSIDE RECORDS SUMMARY | 2025-10-28 06:54 | XMS_ITS | Encounter Summary ---
Author Organization [facility], Address [address] [place] [address] Phone Care Team Providers Care Tip Bander Name Role Phone Jonatan Anthony MD Primary Care Provider [phone] Reason for Visit * Reason Comments Med Refill Encounter Details Date Type Department Care Team (Late Contact Info) Description 06/27/2023 Refill [facility] [address] [place] [address] Christopher Caicedo PA [address] [place] [address] [place] [address] Social History Tobacco Use Types [...] Visit [facility] [address] [place] [address] Tyrell Oden MD [address] [place] [address] [place] [address] documented as of this encounter Visit Diagnoses Not on filedocumented in this encounter Care Teams Tip Bander Relationship Specialty Start Date End Date Po, Lorenver, MD [facility] INTERNAL ID [address] [place] PCP - General Internal Medicine 04/29/22 documented as of this encounter
--- OUTSIDE RECORDS SUMMARY | 2025-10-28 06:54 | XMS_ITS | Encounter Summary ---
Author Organization [facility] Address [address] [place] [address] Phone Care Team Providers Care Editor Continuity And Script Name Role Phone Jonatan Anthony MD Primary Care Provider [phone] Reason for Visit * Reason Comments Med Refill Encounter Details Date Type Department Care Team (Late st Contact Info) Description 08/26/2023 Refill [facility], [address] [place] [address] Tyrell Oden MD [address] [place] [address] [place] [address] Social History Tobacco Use Types [...] Visit [facility] [place] [address] [place] [address] Tyrell Oden MD [address] [place] [address] [place] [address] documented as of this encounter Visit Diagnoses Not on filedocumented in this encounter Care Teams Editor Continuity And Script Relationship Specialty Start Date End Date Jonatan Anthony MD [facility] [address] [place] PCP - General Internal Medicine 04/29/22 documented as of this encounter
--- OUTSIDE RECORDS SUMMARY | 2025-10-28 06:54 | XMS_ITS | Encounter Summary ---
Author Organization [facility] Address [address] [place] [address] Phone Care Team Providers Care Gas Meter Mechanic Name Role Phone Jonatan Anthony MD Primary Care Provider [phone] Encounter Details Date Type Department Care Team ([facility] Contact Info) Description 03/31/2022 Documentation Only [facility] [address] [place] [address] Christopher Caicedo PA [address] [place] [address] [place] [address] Social History Tobacco Use Types [...] Visit [facility] [place] [address] [place] [address] Tyrell Oden MD [address] [facility] [place] [phone] documented as of this encounter Visit Diagnoses Not on filedocumented in this encounter Care Teams Gas Meter Mechanic Relationship Specialty Start Date End Date Jonatan Anthony MD [facility] INTERNAL IN [address] [place] PCP - General Internal Medicine 04/29/22 documented as of this encounter
--- OUTSIDE RECORDS SUMMARY | 2025-10-28 06:54 | XMS_ITS | Encounter Summary ---
Author Organization [facility], Address [address] [place] [address] Phone Care Team Providers Care Sod Farmer Name Role Phone Jonatan Anthony MD Primary Care Provider [phone] Reason for Visit * Reason Comments Med Refill Encounter Details Date Type Department Care Team (Late Contact Info) Description 08/01/2023 [facility]ill [facility] [address] [place] [address] Christopher Caicedo PA [address] [place] [address] [place] [address] Social History Tobacco Use Types [...] [facility] [address] [place] [address] Tyrell Oden MD [address] [place] [address] [place] [address] documented as of this encounter Visit Diagnoses Not on filedocumented in this encounter Care Teams Sod Farmer Relationship Specialty Start Date End Date Po, Lorenver, MD [facility] [place] [address] [place] PCP - General Internal Medicine 04/29/22 documented as of this encounter
--- OUTSIDE RECORDS SUMMARY | 2025-10-28 06:54 | XMS_ITS | Encounter Summary ---
Author Organization [facility] Address [address] [place] [address] Phone Care Team Providers Care Wire Frame Dipper Name Role Phone Jonatan Anthony MD Primary Care Provider [phone] Encounter Details Date Type Department Care Team ([facility] Contact Info) Description 05/01/2025 Documentation Only [facility] [address] [place] [address] Maddy Nunez [place] [address] [place] [address] Social History Tobacco Use Types [...] Visit [facility] [place] [address] [place] [address] Tyrell Oden MD [address] [place] [phone] documented as of this encounter Visit Diagnoses Not on filedocumented in this encounter Care Teams Wire Frame Dipper Relationship Specialty Start Date End Date Jonatan Anthony MD [facility] INTERNAL [place] [address] [place], [place] PCP - General Internal Medicine 04/29/22 documented as of this encounter
--- OUTSIDE RECORDS SUMMARY | 2025-10-28 06:54 | XMS_ITS | Encounter Summary ---
Author Organization [facility] Address [address] [place] [address] Phone Care Team Providers Care Grinder Operator Tool Name Role Phone Jonatan Anthony MD Primary Care Provider [phone] Encounter Details Date Type Department Care Team ([facility] Contact Info) Description 09/21/2023 Documentation Only [facility] [address] [place] [address] Tyrell Oden MD [address] [place] [address] [place] [address] Social History Tobacco Use Types [...] Visit [facility] [address] [place] [address] Tyrell Oden MD [address] [place] [address] [place] [address] documented as of this encounter Visit Diagnoses Not on filedocumented in this encounter Care Teams Grinder Operator Tool Relationship Specialty Start Date End Date Jonatan Anthony MD [facility] [place] [address] [place] PCP - General Internal Medicine 04/29/22 documented as of this encounter
--- OUTSIDE RECORDS SUMMARY | 2025-10-28 06:54 | XMS_ITS | Encounter Summary ---
Author Organization [facility], Address [address] [place] [address] Phone Care Team Providers Care Strip Cleaner Name Role Phone Jonatan Anthony MD Primary Care Provider [phone] Reason for Visit * Reason Comments Med Refill Encounter Details Date Type Department Care Team (Late Contact Info) Description 06/21/2023 Refill [facility] [address] [place] [address] Tyrell Oden MD [address] [place] [address] [place] [address] Social History Tobacco Use Types [...] [facility] [address] [place] [address] Tyrell Oden MD [address] [place] [address] [place] [address] documented as of this encounter Visit Diagnoses Not on filedocumented in this encounter Care Teams Strip Cleaner Relationship Specialty Start Date End Date Po, Lorenver, MD [facility] [place] [address] [place] PCP - General Internal Medicine 04/29/22 documented as of this encounter
--- OUTSIDE RECORDS SUMMARY | 2025-10-28 06:54 | XMS_ITS | Encounter Summary ---
Author Organization [facility], Address [address] [place] [address] Phone Care Team Providers Care Welt Trimming Machine Operator Name Role Phone Jonatan Anthony MD Primary Care Provider [phone] Reason for Visit * Reason Comments Med Refill Encounter Details Date Type Department Care Team (Late st Contact Info) Description 11/23/2023 Refill [facility] [address] [place] [address] Christopher Caicedo PA [address] [place] [address] [place] [address] Long-term drug therapy Social History Tobacco [...] Care Team (Late st Contact Info) Description 10/29/2025 11:00 AM EST Office Visit [facility] [address] [place] [address] Tyrell Oden MD [address] [place] [address] [place] [address] documented as of this encounter Visit Diagnoses Diagnosis Long-term drug therapy documented in this encounter Care Teams Welt Trimming Machine Operator Relationship Specialty Start Date End Date Jonatan Anthony MD [facility] [address] [facility] [place] PCP - General Internal Medicine 04/29/22 documented as of this encounter
--- OUTSIDE RECORDS SUMMARY | 2025-10-28 06:54 | XMS_ITS | Encounter Summary ---
Author Organization [facility] Address [address] [place] [address] Phone Care Team Providers Care Personal Financial Representative Name Role Phone Jonatan Anthony MD Primary Care Provider [phone] Encounter Details Date Type Department Care Team ([facility] Contact Info) Description 10/05/2023 Documentation Only [facility] [address] [place] [address] Tyrell Oden MD [address] [place] [address] [place] [address] Social History Tobacco Use Types [...] Visit [facility] [address] [place] [address] Tyrell Oden MD [address] [place] [address] [place] [address] documented as of this encounter Visit Diagnoses Not on filedocumented in this encounter Care Teams Personal Financial Representative Relationship Specialty Start Date End Date Jonatan Anthony MD [facility] INTERNAL [place] [address] [place] PCP - General Internal Medicine 04/29/22 documented as of this encounter
--- OUTSIDE RECORDS SUMMARY | 2025-10-28 06:55 | XMS_ITS | Encounter Summary ---
Author Organization [facility], Address [address] [place] [address] Phone Care Team Providers Care Frit Coater Name Role Phone Jonatan Anthony MD Primary Care Provider [phone] Reason for Visit * Reason Comments Med Refill Encounter Details Date Type Department Care Team (Late Contact Info) Description 12/26/2022 Refill [facility] [address] [place] [address] Tyrell Oden MD [address] [place] [address] [place] [address] Social History Tobacco Use Types [...] Visit [facility] [address] [place] [address] Tyrell Oden MD [address] [place] [address] [place] [address] documented as of this encounter Visit Diagnoses Not on filedocumented in this encounter Care Teams Frit Coater Relationship Specialty Start Date End Date Po, Lorenver, MD [facility] INTERNAL [place] [address] [place] PCP - General Internal Medicine 04/29/22 documented as of this encounter
--- OUTSIDE RECORDS SUMMARY | 2025-10-28 06:55 | XMS_ITS | Clinical Summary ---
Author Organization [facility] Address [address] [place] [address] Phone Care Team Providers Care Site Safety Representative Name Role Phone Walt Silveira MD Primary [...] file Insurance MEDICARE PART A & B Collective IP MEDEX SUPPLEMENT MEDICARE PART A & B Collective IP MEDEX SUPPLEMENT MEDICARE PART A & B Collective IP MEDEX SUPPLEMENT MEDICARE PART A & B Collective IP MEDEX SUPPLEMENT MEDICARE PART A & B Member Subscriber Plan / Payer (Ef fective 2015-Present) Name:Maninder Pack Member ID:[id number] Relation to Subscriber:Self Name:Maninder Pack Subscriber ID:[id number] Payer ID:[id number] Group ID:Not on file Type:Medicare Address: [employer] [address] [employer] CROSS MEDEX SUPPLEMENT MEDICARE PART A & B [employer] CROSS MEDEX SUPPLEMENT Care Teams Site Safety Representative Relationship Specialty Start Date End Date Walt Silveira MD [address] [place] [address], [address] [place] [address] [email or web address] PCP - General Neurology 02/19/25 Additional Source Comments The information contained in this document represents components of the legal health record. It is not the complete legal health record.[facility]
--- OUTSIDE RECORDS SUMMARY | 2025-10-28 06:55 | XMS_ITS | Encounter Summary ---
Author Organization [facility] Address [address] [place] [address] Phone Care Team Providers Care Personal Care Aid Name Role Phone Jonatan Anthony MD Primary Care Provider [phone] Encounter Details Date Type Department Care Team ([facility] Contact Info) Description 01/06/2023 Documentation Only [facility] [address] [place] [address] Essence King [place] [address] [place] [phone] Social History Tobacco Use Types Packs/Day Years [...] Visit [facility] [place] [address] [address] Tyrell Oden MD [address] [place] [phone] documented as of this encounter Visit Diagnoses Not on filedocumented in this encounter Care Teams Personal Care Aid Relationship Specialty Start Date End Date Jonatan Anthony MD [facility] INTERNAL [place] [address] [place], [place] PCP - General Internal Medicine 04/29/22 documented as of this encounter
--- OUTSIDE RECORDS SUMMARY | 2025-10-28 06:55 | XMS_ITS | Encounter Summary ---
Author Organization [facility] Address [address] [place] [address] Phone Care Team Providers Care Wood Fence Erector Name Role Phone Jonatan Anthony MD Primary Care Provider Encounter Details Date Type Department Care Team ([facility] Contact Info) Description 08/26/2024 Documentation Only [facility] [address] [place] [address] Essence King [place] [address] [place] [phone] Social History Tobacco Use Types Packs/Day Years [...] [facility] Contact Info) Description 10/29/2025 11:00 AM EST Office Visit [facility] [place] [address] [place] [address] Tyrell Oden MD [address] [place] [phone] documented as of this encounter Visit Diagnoses Not on filedocumented in this encounter Care Teams Wood Fence Erector Relationship Specialty Start Date End Date Jonatan Anthony MD [facility] INTERNAL [place] [address] [place], [place] PCP - General Internal Medicine 04/29/22 documented as of this encounter
--- OUTSIDE RECORDS SUMMARY | 2025-10-28 06:55 | XMS_ITS | Clinical Summary ---
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 Name Role Phone Jonatan Anthony MD Primary Care Provider Allergies Active Allergy Reactions Criticality Noted Date Comments Pravastatin Other (see comments) High 10/18/2021 Weakness/ muscle pain Medications docusate sodium (COLACE) 100 MG capsule Take 100 mg by mouth 06/07/20 23 Active donepezil (Aricept) 10 MG tablet Take 1 tablet (10 mg total) by mouth every night 30 tablet 11 09/01/20 23 Active cinacalcet (SENSIPAR) 30 MG tablet TAKE [...] each day in the morning 90 tablet 3 04/16/20 25 026 Active mycophenolate (Myfortic) 180 MG EC tablet Take 1 tablet (180 mg total) by mouth 1 (one) time each day in the evening 90 tablet 3 04/16/20 25 026 Active ezetimibe (Zetia) 10 [...] AND INSOMNIA. 30 capsule 06/30/20 026 Active allopurinol (ZYLOPRIM) 100 MG tablet Take 1 tablet (100 mg total) by mouth 1 (one) time each day 90 tablet 07/28/20 026 Active Jardiance 10 MG tablet TAKE 1 TAB BY MOUTH TIME EACH DAY IN THE MORNING 90 tablet 08/18/20 25 Active Belatacept 250 MG reconstituted solution Infuse 2 vials into a venous catheter every 28 (twenty-eight) days Administer 5mg per kg; pt weight as of 08/28/25 80.5 kg 2 each 10/02/20 25 026 Active folic acid (FOLVITE) 1 MG tabletIndications :Long-term drug therapy Take 1 tablet (1,000 mcg total) by mouth 1 (one) time each day 90 tablet 10/27/20 25 026 Active folic acid (FOLVITE) 1 MG tabletIndications :Long-term drug therapy TAKE ONE TABLET BY MOUTH ONCE DAILY 30 tablet 3 08/18/20 23 025 Discontin ued(Reord er (does not appear on AVS)) Belatacept 250 MG reconstituted solution Infuse 2 vials into a venous catheter every 28 (twenty-eight) days Administer 5mg per kg; pt weight as of 09/09/24 81.5 kg 2 each 09/19/20 24 025 Discontin ued(Reord er (does not appear on AVS)) Active Problems Problem Noted Date Diagnosed Date [...] Encounters Date Type Department Care Team Description 10/27/2025 Orders Only [facility] [address] [place] [address] Maddy Nunez MA Long-term drug therapy 10/20/2025 Orders Only [facility] [address] [address] Maddy Nunez MA Kidney replaced by transplant (Primary Dx); Personal history of immunosuppression therapy; Stage 3b chronic kidney disease (HCC); Hypertension; Type 2 diabetes mellitus with diabetic chronic kidney disease, 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); Essential hypertension; Anemia in chronic kidney disease; Type 2 diabetes mellitus, not otherwise specified (HCC); Secondary hyperparathyroidism of renal origin (HCC); Hypervolemia; History of renal transplant; Immunosuppression (HCC); Vitamin D deficiency, not otherwise specified; Idiopathic gout, not otherwise specified; Hypomagnesemia; Other iron deficiency anemia; Albuminuria, not otherwise specified; Poor glycemic control; BK virus nephropathy 10/02/2025 [facility]ill [facility] [address] [place] [address] Marina Carney RN 09/08/2025 Documentation Only [facility] [address] [place] [address] Maddy Nunez MA 08/28/2025 3:15 PM EDT Clinical Support [facility] [address] [place] [address] Marina Carney RN Personal history of immunosuppression therapy [Z92.25] (Primary Dx); Kidney replaced by transplant [Z94.0]; Stage 3b chronic kidney disease (HCC) [N18.32] 08/18/2025 Refill [facility] [address] [place] [address] Tyrell Oden MD 08/04/2025 Telephone [facility] [address] [place] [address] Maddy Nunez MA from Last 3 Months [...] Sign Reading Time Taken Comments Blood Pressure 130/52 08/28/2025 3:13 PM EDT Pulse 59 06/12/2025 2:43 PM EDT Temperature 36.6 C (97.8 F) 09/20/2023 9:50 AM EDT Respiratory Rate - - Oxygen Saturation 99% 09/20/2023 9:50 AM EDT Inhaled Oxygen Concentration - - Weight 80.5 kg (177 lb 6.4 oz) 08/28/2025 3:13 P M EDT Height 167.6 cm (5' 6 ) 10/11/2024 9:39 AM EST Body Mass Index 28.63 10/11/2024 9:39 AM EST Plan of Treatment Upcoming Encounters Date Type Department Care Team (Late st Contact Info) Description 10/29/2025 11:00 AM EST Office Visit [facility] [address] [place] [address] Tyrell Oden MD [address] [place] [address] [place] [phone] Health Maintenance Due Date Last Done Comments Pneumococcal Vaccine: 50+ Years (3 of 3 - PCV20 or PCV21) 03/14/2017 01/17/2017, 09/12/2016, 09/07/2007 Diabetes: Ophthalmology Exam 12/20/2020 Diabetes: Pedal Pulse Checked 12/20/2020 Diabetes: Sensory Foot Exam 12/20/2020 Diabetes: Visual Foot Exam 12/20/2020 Colonoscopy (Post-Transplant Patient) 10/06/2021 Diabetes: Hemoglobin A1C 01/22/2026 025, 10/09/2024, 05/01/2024, Additional history exists Hepatitis B Vaccine Aged Out 09/11/2000, 03/20/2000, 02/18/2000 No longer eligible based on patient's age to complete this topic Pneumococcal Vaccine: Peds (0 to 5 Years) and At-Risk Patients (6 to 49 Years) Discontinued 01/17/2017, 09/12/2016, 09/07/2007 Influenza Vaccine Completed 08/22/2025, , 07/20/2023, Additional history exists Procedures Procedure Name Priority Date/Time Associated Diagnosis Comments BK VIRUS, DNA, QUANTITATIVE 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) Essential hypertension Anemia in chronic kidney disease Type 2 diabetes mellitus, not otherwise specified (HCC) Secondary hyperparathyroidism of renal origin (HCC) Hypervolemia History of renal transplant Immunosuppression (HCC) Vitamin D deficiency, not otherwise specified Idiopathic gout, not otherwise specified Hypomagnesemia Other iron deficiency anemia Albuminuria, not otherwise specified Poor glycemic control BK virus nephropathy BK VIRUS, DNA, URINE, QUANTITATIVE 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) Essential hypertension Anemia in chronic kidney disease Type 2 diabetes mellitus, not otherwise specified (HCC) Secondary hyperparathyroidism of renal origin (HCC) Hypervolemia History of renal transplant Immunosuppression (HCC) Vitamin D deficiency, not otherwise specified Idiopathic gout, not otherwise specified Hypomagnesemia Other iron deficiency anemia Albuminuria, not otherwise specified Poor glycemic control BK virus nephropathy HEMOGLOBIN A1C 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) Essential hypertension Anemia in chronic kidney disease Type 2 diabetes mellitus, not otherwise specified (HCC) Secondary hyperparathyroidism of renal origin (HCC) Hypervolemia History of renal transplant Immunosuppression (HCC) Vitamin D deficiency, not otherwise specified Idiopathic gout, not otherwise specified Hypomagnesemia Other iron deficiency anemia Albuminuria, not otherwise specified Poor glycemic control BK virus nephropathy URINALYSIS, COMPLETE 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) Essential hypertension Anemia in chronic kidney disease Type 2 diabetes mellitus, not otherwise specified (HCC) Secondary hyperparathyroidism of renal origin (HCC) Hypervolemia History of renal transplant Immunosuppression (HCC) Vitamin D deficiency, not otherwise specified Idiopathic gout, not otherwise specified Hypomagnesemia Other iron deficiency anemia Albuminuria, not otherwise specified Poor glycemic control BK virus nephropathy URINE ALBUMIN / CREATININE RATIO 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) Essential hypertension Anemia in chronic kidney disease Type 2 diabetes mellitus, not otherwise specified (HCC) Secondary hyperparathyroidism of renal origin (HCC) Hypervolemia History of renal transplant Immunosuppression (HCC) Vitamin D deficiency, not otherwise specified Idiopathic gout, not otherwise specified Hypomagnesemia Other iron deficiency anemia Albuminuria, not otherwise specified Poor glycemic control BK virus nephropathy CREATINE KINASE 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) Essential hypertension Anemia in chronic kidney disease Type 2 diabetes mellitus, not otherwise specified (HCC) Secondary hyperparathyroidism of renal origin (HCC) Hypervolemia History of renal transplant Immunosuppression (HCC) Vitamin D deficiency, not otherwise specified Idiopathic gout, not otherwise specified Hypomagnesemia Other iron deficiency anemia Albuminuria, not otherwise specified Poor glycemic control BK virus nephropathy AST 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) Essential hypertension Anemia in chronic kidney disease Type 2 diabetes mellitus, not otherwise specified (HCC) Secondary hyperparathyroidism of renal origin (HCC) Hypervolemia History of renal transplant Immunosuppression (HCC) Vitamin D deficiency, not otherwise specified Idiopathic gout, not otherwise specified Hypomagnesemia Other iron deficiency anemia Albuminuria, not otherwise specified Poor glycemic control BK virus nephropathy ALT 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) Essential hypertension Anemia in chronic kidney disease Type 2 diabetes mellitus, not otherwise specified (HCC) Secondary hyperparathyroidism of renal origin (HCC) Hypervolemia History of renal transplant Immunosuppression (HCC) Vitamin D deficiency, not otherwise specified Idiopathic gout, not otherwise specified Hypomagnesemia Other iron deficiency anemia Albuminuria, not otherwise specified Poor glycemic control BK virus nephropathy PTH, INTACT 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) Essential hypertension Anemia in chronic kidney disease Type 2 diabetes mellitus, not otherwise specified (HCC) Secondary hyperparathyroidism of renal origin (HCC) Hypervolemia History of renal transplant Immunosuppression (HCC) Vitamin D deficiency, not otherwise specified Idiopathic gout, not otherwise specified Hypomagnesemia Other iron deficiency anemia Albuminuria, not otherwise specified Poor glycemic control BK virus nephropathy IRON PANEL (FE, TIBC, TSAT) 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) Essential hypertension Anemia in chronic kidney disease Type 2 diabetes mellitus, not otherwise specified (HCC) Secondary hyperparathyroidism of renal origin (HCC) Hypervolemia History of renal transplant Immunosuppression (HCC) Vitamin D deficiency, not otherwise specified Idiopathic gout, not otherwise specified Hypomagnesemia Other iron deficiency anemia Albuminuria, not otherwise specified Poor glycemic control BK virus nephropathy FERRITIN 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) Essential hypertension Anemia in chronic kidney disease Type 2 diabetes mellitus, not otherwise specified (HCC) Secondary hyperparathyroidism of renal origin (HCC) Hypervolemia History of renal transplant Immunosuppression (HCC) Vitamin D deficiency, not otherwise specified Idiopathic gout, not otherwise specified Hypomagnesemia Other iron deficiency anemia Albuminuria, not otherwise specified Poor glycemic control BK virus nephropathy MAGNESIUM 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) Essential hypertension Anemia in chronic kidney disease Type 2 diabetes mellitus, not otherwise specified (HCC) Secondary hyperparathyroidism of renal origin (HCC) Hypervolemia History of renal transplant Immunosuppression (HCC) Vitamin D deficiency, not otherwise specified Idiopathic gout, not otherwise specified Hypomagnesemia Other iron deficiency anemia Albuminuria, not otherwise specified Poor glycemic control BK virus nephropathy LIPID PANEL 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) Essential hypertension Anemia in chronic kidney disease Type 2 diabetes mellitus, not otherwise specified (HCC) Secondary hyperparathyroidism of renal origin (HCC) Hypervolemia History of renal transplant Immunosuppression (HCC) Vitamin D deficiency, not otherwise specified Idiopathic gout, not otherwise specified Hypomagnesemia Other iron deficiency anemia Albuminuria, not otherwise specified Poor glycemic control BK virus nephropathy URIC ACID 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) Essential hypertension Anemia in chronic kidney disease Type 2 diabetes mellitus, not otherwise specified (HCC) Secondary hyperparathyroidism of renal origin (HCC) Hypervolemia History of renal transplant Immunosuppression (HCC) Vitamin D deficiency, not otherwise specified Idiopathic gout, not otherwise specified Hypomagnesemia Other iron deficiency anemia Albuminuria, not otherwise specified Poor glycemic control BK virus nephropathy VITAMIN D 25 HYDROXY 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) Essential hypertension Anemia in chronic kidney disease Type 2 diabetes mellitus, not otherwise specified (HCC) Secondary hyperparathyroidism of renal origin (HCC) Hypervolemia History of renal transplant Immunosuppression (HCC) Vitamin D deficiency, not otherwise specified Idiopathic gout, not otherwise specified Hypomagnesemia Other iron deficiency anemia Albuminuria, not otherwise specified Poor glycemic control BK virus nephropathy CBC AND DIFFERENTIAL 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) Essential hypertension Anemia in chronic kidney disease Type 2 diabetes mellitus, not otherwise specified (HCC) Secondary hyperparathyroidism of renal origin (HCC) Hypervolemia History of renal transplant Immunosuppression (HCC) Vitamin D deficiency, not otherwise specified Idiopathic gout, not otherwise specified Hypomagnesemia Other iron deficiency anemia Albuminuria, not otherwise specified Poor glycemic control BK virus nephropathy RENAL FUNCTION PANEL 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) Essential hypertension Anemia in chronic kidney disease Type 2 diabetes mellitus, not otherwise specified (HCC) Secondary hyperparathyroidism of renal origin (HCC) Hypervolemia History of renal transplant Immunosuppression (HCC) Vitamin D deficiency, not otherwise specified Idiopathic gout, not otherwise specified Hypomagnesemia Other iron deficiency anemia Albuminuria, not otherwise specified Poor glycemic control BK virus nephropathy MICROSCOPIC EXAMINATION - DO NOT USE Routine 10/24/2025 9:34 AM EST IMMATURE CELLS Routine 08/04/2025 9:47 AM EDT [...] NOT USE Routine 08/04/2025 9:47 AM EDT from Last 3 Months Results * (ABNORMAL) Urinalysis, Complete w/reflex to Culture (10/24/2025 9:34 AM EST) Only the most recent of2 resultswithin the time period is included. Specific [place], Urine 1.022 1.005 - 1.030 [facility] pH Urine 6.0 5.0 - 7.5 [facility] Color, Urine Yellow Yellow [facility] Appearance Urine Clear Clear [facility] [place] WBC Esterase Urine Negative Negative [facility] Protein, Ur 1+(A) Negative/Tra ce [facility] Glucose, Ur 3+(A) Negative [facility] Ketones, Urine Negative Negative [facility] Blood Urine Negative Negative [facility] Bilirubin Urine Negative Negative [facility] [place] Urobilinogen Urine 0.2 0.2 - 1.0 mg/dL [facility] Nitrite, Urine Negative Negative [facility] Microscopic Examination See below: [facility] Comment:Microscopic was shin cated and was performed. URINALYSIS REFLEX Comment [facility] Comment:This specimen will n ot reflex to a Urine Culture. Urine 10/24/2025 9:34 AM EST 10/24/2025 Tyrell Oden MD LAB URINE ORDERABLES Final Result Performing Organization Address City/[facility] Co de Phone Number [facility] [address] [place] [address] * Microscopic Examination (10/24/2025 9:34 AM EST) Only the most recent of2 resultswithin the time period is included. WBC, Urine None seen 0 - 5 /hpf [facility] RBC, Urine None seen 0 - 2 /hpf [facility] Squamous Epithelial, Urine None seen 0 - 10 /hpf [facility] Casts None seen None seen /lpf [facility] Bacteria, Urine None seen None seen/Few [facility] 10/24/2025 9:34 AM EST 10/24/2025 Tyrell Oden MD LAB MICROBIOLOGY - GENERAL ORDERABLES Final Result [facility] [address] [place] [address] * (ABNORMAL) Iron Panel (Fe, TIBC, TSAT) (10/24/2025 9:34 AM EST) Only the most recent of2 resultswithin the time period is included. UIBC 137 111 - 343 ug/dL [facility] TIBC 227(L) 250 - 450 ug/dL [facility] Iron 90 38 - 169 ug/dL [facility] Iron Saturation (TSat) 40 15 - 55 % [facility] Blood 10/24/2025 9:34 AM EST 10/24/2025 Tyrell Oden MD LAB BLOOD ORDERABLES Final Result Performing Organization Address [facility] Co de Phone Number [facility] [address], [address] [place] [address] * (ABNORMAL) Urine Albumin / Creatinine Ratio (10/24/2025 9:34 AM EST) Only the most recent of2 resultswithin the time period is included. Creatinine, Ur 72.4 Not Estab. mg/dL [facility] Albumin, Urine 67.0 Not Estab. ug/mL [facility] Albumin/Creatin ine Ratio 93(H) 0 - 29 mg/g creat [facility] Comment: Normal: 0 - 29 Moderately increased: 30 - 300 Severely increased: >300 Urine 10/24/2025 9:34 AM EST 10/24/2025 Tyrell Oden MD LAB URINE ORDERABLES Final Result [facility] [place] [address] [place] [address] * BK Virus Urine, Quant PCR (10/24/2025 9:34 AM EST) Only the most recent of2 resultswithin the time period is included. [facility] BK VIRUS PCR, QUANT, U 75,000 Negative IU/mL [facility] Comment:The linear range of the assay is 200 - 100,000,000 IU/ml log10 BK Qn PCR Ur 4.875 log10 IU/mL [facility] Urine Urine specimen obtained by clean catch procedure / Unknown 10/24/2025 9:34 AM EST 10/24/2025 Tyrell Oden MD LAB URINE ORDERABLES Final Result Performing Organization Address City/[facility]/ZIP Co de Phone Number [facility] [address] [place] [address] * BK Virus DNA, Quant PCR (10/24/2025 9:34 AM EST) Only the most recent of2 resultswithin the time period is included. [facility] BK VIRUS DNA, PCR 50 Negative IU/mL [facility] Comment:The linear range of the assay is 22 - 100,000,000 IU/mL. log10 BK Qn PCR, Plasma or Serum 1.699 log10 IU/mL [facility] [place] Blood Venous blood / Unknown 10/24/2025 9:34 AM EST 10/24/2025 us Tyrell Oden MD LAB BLOOD ORDERABLES Final Result [facility] [address] [place] [address] * Vitamin D 25 Hydroxy (10/24/2025 9:34 AM EST) [facility] Vitamin D, 25-OH, Total 34.7 30.0 - 100.0 ng/mL [facility] Comment: Vitamin D deficiency has been defined by the [place] of [employer] and an Endocrine Society practice guideline as a level of serum 25-OH vitamin D less than 20 ng/mL (1,2). The Endocrine Society went on to further define vitamin D insufficiency as a level between 21 and 29 ng/mL (2). 1. IOM ([place] of [employer]). 2010. Dietary reference intakes for calcium and D. [place]: The National Academies Press. 2. Yao MF, Santosh LEIGH, Mele HURTADO, et al. Evaluation, treatment, and prevention of vitamin D deficiency: an Endocrine Society clinical practice guideline. JCEM. 2010; 96(7):1911-30. Blood 10/24/2025 9:34 AM EST 10/24/2025 Tyrell Oden MD LAB BLOOD ORDERABLES Final Result [facility] [address] [place] [address] * (ABNORMAL) CBC and Differential (10/24/2025 9:34 AM EST) Only the most recent of2 resultswithin the time period is included. Pathologist [facility] WBC 3.1(L) 3.4 - 10.8 x10E3/uL [facility] RBC 4.14 4.14 - 5.80 x10E6/uL [facility] Hemoglobin 12.4(L) 13.0 - 17.7 g/dL [facility] Hematocrit 38.4 37.5 - 51.0 % [facility] MCV 93 79 - 97 fL [facility] MCH 30.0 26.6 - 33.0 pg [facility] MCHC 32.3 31.5 - 35.7 g/dL [facility] RDW 13.2 11.6 - 15.4 % [facility] [place] Platelets 195 150 - 450 x10E3/uL [facility] [place] Neutrophils Relative 43 Not Estab. % [facility] [place] Lymphocytes Relative 39 Not Estab. % [facility] [place] Monocytes 12 Not Estab. % [facility] [place] Eosinophils Relative 4 Not Estab. % [facility] [place] Basophils Relative 1 Not Estab. % [facility] [place] Neutrophils Absolute 1.3(L) 1.4 - 7.0 x10E3/uL [facility] [place] Lymphocytes Absolute 1.2 0.7 - 3.1 x10E3/uL [facility] [place] Monocytes Absolute 0.4 0.1 - 0.9 x10E3/uL [facility] [place] Eosinophils Absolute 0.1 0.0 - 0.4 x10E3/uL [facility] [place] Basophils Absolute 0.0 0.0 - 0.2 x10E3/uL [facility] [place] Immature Granulocytes 0 Not Estab. % [facility] [place] Immature Grans (Absolute) 0.0 0.0 - 0.1 x10E3/uL [facility] [place] Blood 10/24/2025 9:34 AM EST 10/24/2025 Tyrell Oden MD LAB BLOOD ORDERABLES Final Result [facility] [place] [address] [place] [address] * Uric Acid (10/24/2025 9:34 AM EST) Uric Acid 6.2 3.8 - 8.4 mg/dL [facility] Comment:Therapeutic target f or gout patients: <6.0 Blood 10/24/2025 9:34 AM EST 10/24/2025 Tyrell Oden MD LAB BLOOD ORDERABLES Final Result Performing Organization Address City/[facility]/ZIP Co de Phone Number [facility]rmasight PhoneTell [place] [address], [address] [place] [address] * ALT (10/24/2025 9:34 AM EST) Only the most recent of2 resultswithin the time period is included. ALT (SGPT) 26 0 - 44 IU/L [facility] [place] Blood 10/24/2025 9:34 AM EST 10/24/2025 Tyrell Oden MD LAB BLOOD ORDERABLES Final Result Performing Organization Address [facility] Co de Phone Number [facility] [place] [address], [address] [place] [address] * AST (10/24/2025 9:34 AM EST) Only the most recent of2 resultswithin the time period is included. AST (SGOT) 26 0 - 40 IU/L [facility] [place] Blood 10/24/2025 9:34 AM EST 10/24/2025 Tyrell Oden MD LAB BLOOD ORDERABLES Final Result Performing Organization Address City/[facility]/ZIP Co de Phone Number [facility] [place] [address], [address] [place] [address] * (ABNORMAL) PTH, Intact (10/24/2025 9:34 AM EST) Only the most recent of2 resultswithin the time period is included. PTH 205(H) 15 - 65 pg/mL [facility] [place] Blood 10/24/2025 9:34 AM EST 10/24/2025 Tyrell Oden MD LAB BLOOD ORDERABLES Final Result [facility] [place] [address], [address] [place] [address] * Magnesium (10/24/2025 9:34 AM EST) Magnesium 2.0 1.6 - 2.3 mg/dL [facility] [place] Blood 10/24/2025 9:34 AM EST 10/24/2025 Tyrell Oden MD LAB BLOOD ORDERABLES Final Result Performing Organization Address City/[facility]/ZIP Co de Phone Number [facility] [place] [address], [address] [place] [address] * Hemoglobin A1c (10/24/2025 9:34 AM EST) Hemoglobin A1C 5.5 4.8 - 5.6 % [facility] [place] Comment: Prediabetes: 5.7 - 6.4 Diabetes: >6.4 Glycemic control for adults with diabetes: <7.0 Blood Venous blood / Unknown 10/24/2025 9:34 AM EST 10/24/2025 Tyrell Oden MD LAB BLOOD ORDERABLES Final Result [facility] [place] [address] [place] [address] * (ABNORMAL) Ferritin (10/24/2025 9:34 AM EST) Only the most recent of2 resultswithin the time period is included. Ferritin 1,261(H) 30 - 400 ng/mL [facility] [place] Blood 10/24/2025 9:34 AM EST 10/24/2025 Tyrell Oden MD LAB BLOOD ORDERABLES Final Result Performing Organization Address City/[facility]/ZIP Co de Phone Number [facility] [place] [address], [address] [place] [address] * CK (10/24/2025 9:34 AM EST) Only the most recent of2 resultswithin the time period is included. Creatine Kinase (CK/CPK) 46 41 - 331 U/L [facility] [place] Blood 10/24/2025 9:34 AM EST 10/24/2025 Tyrell Oden MD LAB BLOOD ORDERABLES Final Result Performing Organization Address [facility] Co de Phone Number [facility] [place] [address], [address] [place] [address] * (ABNORMAL) Renal Function Panel (10/24/2025 9:34 AM EST) Only the most recent of2 resultswithin the time period is included. Glucose 128(H) 70 - 99 mg/dL [facility] [place] BUN 35(H) 8 - 27 mg/dL [facility] [place] Creatinine 1.67(H) 0.76 - 1.27 mg/dL [facility] [place] eGFR CKD-EPI CR 2020 42(L) >59 mL/min/1.7 3 [facility] [place] BUN/Creatinine Ratio 21 10 - 24 [facility] [place] Sodium 142 134 - 144 mmol/L [facility] [place] Potassium 4.8 3.5 - 5.2 mmol/L [facility] [place] Chloride 111(H) 96 - 106 mmol/L [facility] [place] Bicarbonate (CO2) 22 20 - 29 mmol/L [facility] [place] Calcium 10.3(H) 8.6 - 10.2 mg/dL [facility] [place] Albumin 4.1 3.8 - 4.8 g/dL [facility] [place] Phosphorus 2.9 2.8 - 4.1 mg/dL [facility] [place] Blood 10/24/2025 9:34 AM EST 10/24/2025 us Tyrell Oden MD LAB BLOOD ORDERABLES Final Result [facility] [place] [address] [place] [address] * (ABNORMAL) Lipid panel (10/24/2025 9:34 AM EST) Cholesterol 183 100 - 199 mg/dL [facility] [place] HDL 56 >39 mg/dL [facility] [place] Triglycerides 119 0 - 149 mg/dL [facility] [place] VLDL Cholesterol Cruz 21 5 - 40 mg/dL [facility] [place] LDL Calculated 106(H) 0 - 99 mg/dL [facility] [place] Blood 10/24/2025 9:34 AM EST 10/24/2025 Tyrell Oden MD LAB BLOOD ORDERABLES Final Result [facility] [address] [place] [address] * (ABNORMAL) Immature Cells (08/04/2025 9:47 AM EDT) Myelocytes Relative 3(H) 0 - 0 % [facility] [place] 08/04/2025 9:47 AM EDT 08/04/2025 Tyrell Oden MD LAB BLOOD ORDERABLES Final Result Performing Organization Address City/[facility]/ZIP Co de Phone Number [facility] [place] [address] [place] [address] * Mycophenolic Acid and Metabo. (08/04/2025 9:47 AM EDT) Mycophenolic Acid 2.6 1.0 - 3.5 ug/mL [facility] Mycophenolic Acid Glucuronide 48 35 - 100 ug/mL [facility] Blood Venous blood / Unknown 08/04/2025 9:47 AM EDT 08/04/2025 Narrative [facility] - 08/06/2025 11:06 PM EDT Test(s) 438033-Zqeetsuuzhdy Acid; 306082- Mycophenolic Acid Glucuronide was developed and its performance characteristics determined by [facility]. It has not been cleared or approved by the Food and Drug Administration. Tyrell Oden MD LAB BLOOD ORDERABLES Final Result [facility] [place] [address] from Last 3 Months Insurance [facility] Medicare Medicare [facility] Care Teams Feed Mill Manager Relationship Specialty Start Date End Date Jonatan Anthony MD [facility] INTERNAL [place] [address] [place], [place] PCP - General Internal Medicine 04/29/22
--- OUTSIDE RECORDS SUMMARY | 2025-10-28 06:55 | XMS_ITS | Encounter Summary ---
Author Organization [facility] Address [address] [place] [address] Phone Care Team Providers Care Retail Product Advisor Name Role Phone Jonatan Anthony MD Primary Care Provider [phone] Reason for Visit * Reason Comments Med Refill Encounter Details Date Type Department Care Team (Late Contact Info) Description 03/27/2024 Refill [facility] [place], [address] [place] [address] Giuliano Shirley MD [facility] [address] Social History Tobacco Use Types [...] Visit [facility] [place] [address] [place] [address] Tyrell Oden MD [address] [address] [place] [address] documented as of this encounter Visit Diagnoses Not on filedocumented in this encounter Care Teams Retail Product Advisor Relationship Specialty Start Date End Date Po, Lorenver, MD [facility] INTERNAL [place] [address] [place] PCP - General Internal Medicine 04/29/22 documented as of this encounter
--- OUTSIDE RECORDS SUMMARY | 2025-10-28 06:55 | XMS_ITS | Encounter Summary ---
Author Organization [facility], Address [address] [place] [address] Phone Care Team Providers Care Information And Data Architect Analyst Name Role Phone Jonatan Anthony MD Primary Care Provider [phone] Reason for Visit * Reason Comments Med Refill Encounter Details Date Type Department Care Team (Late Contact Info) Description 02/24/2023 Refill [facility] [address] [place] [address] Christopher Caicedo PA [address] [place] [address] [place] [address] Social History Tobacco Use Types [...] [facility] [address] [place] [address] Tyrell Oden MD [address] [place] [address] [place] [address] documented as of this encounter Visit Diagnoses Not on filedocumented in this encounter Care Teams Information And Data Architect Analyst Relationship Specialty Start Date End Date Po, Lorenver, MD [facility] INTERNAL [place] [address] [place] PCP - General Internal Medicine 04/29/22 documented as of this encounter
--- OUTSIDE RECORDS SUMMARY | 2025-10-28 06:55 | XMS_ITS | Encounter Summary ---
Author Organization [facility] Address [address] [place] [address] Phone Care Team Providers Care Infant Babysitter Name Role Phone Jonatan Anthony MD Primary Care Provider [phone] Reason for Visit * Reason Comments Med Refill Encounter Details Date Type Department Care Team (Late Contact Info) Description 08/27/2024 Refill [facility] [address] [place] [address] Rakesh King MD Social History [...] Upcoming Encounters Date Type Department Care Team ([facility] Contact Info) Description 10/29/2025 11:00 AM EST Office Visit [facility] [address] [place] [address] Tyrell Oden MD [address] [place] [address] [place] [address] documented as of this encounter Visit Diagnoses Not on filedocumented in this encounter Care Teams Infant Babysitter Relationship Specialty Start Date End Date Jonatan Anthony MD [place] [facility] [address] [place], [place] PCP - General Internal Medicine 04/29/22 documented as of this encounter
--- OUTSIDE RECORDS SUMMARY | 2025-10-28 06:55 | XMS_ITS | Encounter Summary ---
Author Organization [facility] Address [address] [place] [address] Phone Care Team Providers Care Furniture Upholstery Mechanic Name Role Phone Jonatan Anthony MD Primary Care Provider [phone] Encounter Details Date Type Department Care Team ([facility] Contact Info) Description 08/26/2024 Documentation Only [facility] [address] [place] [address] Essence King [place] [address] [place] [address] Social History Tobacco Use Types Packs/Day Years [...] Upcoming Encounters Date Type Department Care Team ([facility] Contact Info) Description 10/29/2025 11:00 AM EST Office Visit [facility] [place] [address] [place] [address] Tyrell Oden MD [address] [facility] [address] [place] [address] documented as of this encounter Visit Diagnoses Not on filedocumented in this encounter Care Teams Furniture Upholstery Mechanic Relationship Specialty Start Date End Date Jonatan Anthony MD [facility] INTERNAL [place] [address] [place], [place] PCP - General Internal Medicine 04/29/22 documented as of this encounter
--- OUTSIDE RECORDS SUMMARY | 2025-10-28 06:55 | XMS_ITS | Encounter Summary ---
Author Organization [facility] Address [address] [place] [address] Phone Care Team Providers Care Chief Optometry Service Name Role Phone Jonatan Anthony MD Primary Care Provider [phone] Encounter Details Date Type Department Care Team ([facility] Contact Info) Description 09/17/2024 Documentation Only [facility] [address] [place] [address] [place], [place] [address] [place] [address] Social History Tobacco Use Types Packs/Day Years [...] Visit [facility] [place] [address] [place] [address] Tyrell Oden MD [address] [facility] [address] [place] [phone] documented as of this encounter Visit Diagnoses Not on filedocumented in this encounter Care Teams Chief Optometry Service Relationship Specialty Start Date End Date Jonatan Anthony MD [facility] INTERNAL [place] [address] [place], [place] PCP - General Internal Medicine 04/29/22 documented as of this encounter
--- OUTSIDE RECORDS SUMMARY | 2025-10-28 06:55 | XMS_ITS | Encounter Summary ---
Author Organization [facility] Address [address] [place] [address] Phone Care Team Providers Care Mortgage Sales Manager Name Role Phone Jonatan Anthony MD Primary Care Provider [phone] Encounter Details Date Type Department Care Team ([facility] Contact Info) Description 02/09/2023 Documentation Only [facility] [address] [place] [address] Christopher Caicedo PA [address] [place] [address] [place] [address] Social History Tobacco Use Types [...] Visit [facility] [place] [address] [place] [address] Tyrell Oden MD [address] [facility] [place] [phone] documented as of this encounter Visit Diagnoses Not on filedocumented in this encounter Care Teams Mortgage Sales Manager Relationship Specialty Start Date End Date Jonatan Anthony MD [facility] INTERNAL [place] [address] [place] PCP - General Internal Medicine 04/29/22 documented as of this encounter
--- OUTSIDE RECORDS SUMMARY | 2025-10-28 06:55 | XMS_ITS | Encounter Summary ---
Author Organization [facility] Address [address] [place] [address] Phone Care Team Providers Care Senior Microstrategy Developer Name Role Phone Jonatan Anthony MD Primary Care Provider [phone] Encounter Details Date Type Department Care Team ([facility] Contact Info) Description 10/27/2025 Orders Only [facility] [address] [address] Maddy Nunez [place] [address] [place] [phone] Long-term drug therapy Social History Tobacco Use [...] Visit [facility] [place] [address] [address] Tyrell Oden MD [address] [facility] [address] [place] [address] documented as of this encounter Visit Diagnoses Diagnosis Long-term drug therapy documented in this encounter Care Teams Senior Microstrategy Developer Relationship Specialty Start Date End Date Jonatan Anthony MD [facility] INTERNAL [address] [place] PCP - General Internal Medicine 04/29/22 documented as of this encounter
--- OUTSIDE RECORDS SUMMARY | 2025-10-28 06:55 | XMS_ITS | Encounter Summary ---
Author Organization [facility] Address [address] [place] [address] Phone Care Team Providers Care Account Executive Software Sales Name Role Phone Jonatan Anthony MD Primary Care Provider [phone] Encounter Details Date Type Department Care Team ([facility] Contact Info) Description 01/15/2025 Documentation Only [facility] [address] [place] [address] Maddy Nunez [place] [address] [place] [address] Social History Tobacco Use [...] Visit [facility] [place] [address] [place] [address] Tyrell Oden MD [address] [facility] [place] [phone] documented as of this encounter Visit Diagnoses Not on filedocumented in this encounter Care Teams Account Executive Software Sales Relationship Specialty Start Date End Date Jonatan Anthony MD [facility] INTERNAL [place] [address] [place], [place] PCP - General Internal Medicine 04/29/22 documented as of this encounter
--- OUTSIDE RECORDS SUMMARY | 2025-10-28 06:55 | XMS_ITS | Encounter Summary ---
Author Organization [facility] Address [address] [place] [address] Phone Care Team Providers Care Cone Tender Name Role Phone Jonatan Anthony MD Primary Care Provider [phone] Encounter Details Date Type Department Care Team (Late Contact Info) Description 12/27/2023 Documentation Only [facility] [place], [address] [place] [address] Nadja Moss [address] [place] [phone] Social History Tobacco Use Types Packs/Day Years [...] documented as of this encounter Functional Status * PHQ-9 Total Score Answer Date of Assessment Author 0 12/28/2023 4:20 PM Maddy Guillory [place] * PHQ-9 Total Score Answer Date of Assessment Author 0 12/28/2023 4:20 PM Mdady Guillory [place] documented as of this encounter Mental Status * PHQ-9 Total Score Answer Entry Date Author 0 12/28/2023 4:20 PM Maddy Guillory [place] documented in this encounter Plan of Treatment Upcoming Encounters Date Type Department Care Team (Late st Contact Info) Description 10/29/2025 11:00 AM EST Office Visit [facility] [place] [address] [place] [address] Tyrell Oden MD [address] [place] [address] documented as of this encounter Visit Diagnoses Not on filedocumented in this encounter Care Teams Cone Tender Relationship Specialty Start Date End Date Jonatan Anthony MD [facility] INTERNAL [address] [place], [place] PCP - General Internal Medicine 04/29/22 documented as of this encounter
--- OUTSIDE RECORDS SUMMARY | 2025-10-28 06:55 | XMS_ITS | Encounter Summary ---
Author Organization [facility] Address [address] [place] [address] Phone Care Team Providers Care Tufting Creeler Name Role Phone Jonatan Anthony MD Primary Care Provider [phone] Encounter Details Date Type Department Care Team ([facility] Contact Info) Description 10/28/2024 Documentation Only [facility] [address] [address] Maddy Nunez [place] [address] [place] [phone] Social History Tobacco Use Types Packs/Day Years [...] Visit [facility] [place] [address] [address] Tyrell Oden MD [address] [facility] [address] [place] [phone] documented as of this encounter Visit Diagnoses Not on filedocumented in this encounter Care Teams Tufting Creeler Relationship Specialty Start Date End Date Jonatan Anthony MD [facility] INTERNAL [place] [address] [place], [place] PCP - General Internal Medicine 04/29/22 documented as of this encounter
--- OUTSIDE RECORDS SUMMARY | 2025-10-28 06:55 | XMS_ITS | Clinical Summary ---
Author Organization [facility] Address [address] [place] [address] Care Team Providers Care Sap Security Architect Name Role Phone Pcp, No Primary Care [...] Vaccine (1 of 2) 2000 RSV Vaccine 50 years and older and Patients (1 - 1-dose 75+ series) 2025 Influenza Vaccine 06/20/2025 09/04/2014, , 01/23/2014, Additional history exists COVID-19 Vaccine (2024- season) 2025 01/21/2022, 02/12/2021, 12/31/2020 Hepatitis B Vaccines Aged Out No long er eligible based on patient's age to complete this topic Insurance MEDICARE PART A & B Care Teams Sap Security Architect Relationship Specialty Start Date End Date Pcp, No [address] [place] [address] PCP - General 03/28/22
--- OUTSIDE RECORDS SUMMARY | 2025-10-28 06:55 | XMS_ITS | Encounter Summary ---
Author Organization [facility], Address [address] [place] [address] Phone Care Team Providers Care Software Administrator Name Role Phone Jonatan Anthony MD Primary Care Provider [phone] Reason for Visit * Reason Comments Med Refill Encounter Details Date Type Department Care Team (Late Contact Info) Description 01/31/2023 Refill [facility] [address] [place] [address] Christopher Caicedo PA [address] [place] [address] [place] [address] Social History Tobacco Use Types [...] Visit [facility] [address] [place] [address] Tyrell Oden MD [address] [place] [address] [place] [address] documented as of this encounter Visit Diagnoses Not on filedocumented in this encounter Care Teams Software Administrator Relationship Specialty Start Date End Date Po, Lorenver, MD [facility] INTERNAL [address] [place] PCP - General Internal Medicine 04/29/22 documented as of this encounter
--- OUTSIDE RECORDS SUMMARY | 2025-10-28 06:55 | XMS_ITS | Encounter Summary ---
Author Organization [facility] [employer] Address [address] [place] [address] Phone Care Team Providers Care Medical I D Sales Name Role Phone Jonatan Anthony MD Primary Care Provider [phone] Encounter Details Date Type Department Care Team ([facility] Contact Info) Description 09/08/2025 Documentation Only [facility] [facility] [address] [place] [address] Maddy Nunez [place] [address] [place] [phone] Social History Tobacco Use Types Packs/Day Years [...] [facility] [place] [address] [place] [address] Tyrell Oden MD [address] [facility] [address] [place] [address] documented as of this encounter Visit Diagnoses Not on filedocumented in this encounter Care Teams Medical I D Sales Relationship Specialty Start Date End Date Jonatan Anthony MD [facility] INTERNAL [place] [address] [place], [place] PCP - General Internal Medicine 04/29/22 documented as of this encounter
--- OUTSIDE RECORDS SUMMARY | 2025-10-28 06:55 | XMS_ITS | Encounter Summary ---
Author Organization [facility], Address [address] [place] [address] Phone Care Team Providers Care Origination Specialist Name Role Phone Jonatan Anthony MD Primary Care Provider [phone] Reason for Visit * Reason Comments Med Refill Encounter Details Date Type Department Care Team (Late Contact Info) Description 11/18/2022 Refill [facility] [address] [place] [address] Tyrell Oden MD [address] [place] [address] [place] [address] Social History Tobacco Use Types [...] [facility] [address] [place] [address] Tyrell Oden MD [address] [place] [address] [place] [address] documented as of this encounter Visit Diagnoses Not on filedocumented in this encounter Care Teams Origination Specialist Relationship Specialty Start Date End Date Po, Lorenver, MD [facility] OR [address] [place] PCP - General Internal Medicine 04/29/22 documented as of this encounter
--- OUTSIDE RECORDS SUMMARY | 2025-10-28 06:55 | XMS_ITS | Encounter Summary ---
Author Organization [facility], Address [address] [place] [address] Phone Care Team Providers Care Wafer Cleaner Name Role Phone Jonatan Anthony MD Primary Care Provider [phone] Reason for Visit * Reason Comments Med Refill Encounter Details Date Type Department Care Team (Late Contact Info) Description 04/23/2023 [facility]ill [facility] [address] [place] [address] Tyrell Oden MD [address] [place] [address] [place] [address] Social History Tobacco Use Types [...] Visit [facility] [address] [place] [address] Tyrell Oden MD [address] [place] [address] [place] [address] documented as of this encounter Visit Diagnoses Not on filedocumented in this encounter Care Teams Wafer Cleaner Relationship Specialty Start Date End Date Po, Lorenver, MD [facility] [place] [address] [place] PCP - General Internal Medicine 04/29/22 documented as of this encounter
--- OUTSIDE RECORDS SUMMARY | 2025-10-28 06:55 | XMS_ITS | Patient Health Record ---
[facility] latoya [place] Address [address] [facility] [place] [address] Care Team Providers Care Treasury Agent Name Role Phone Jonatan Anthony Primary Care Provider UnavailLeticia Huff Unavailable [phone] Allergies Allergen (clinical drug ingredient) Drug/Non Drug Allergy documented on EMR Reaction Allergy Type Onset Date Status Penicillin Unknown Drug Allergy Active Results Component Value Reference Range Notes HEMOGLOBIN A1C (GLYCOHEMOGLO BIN) Reviewed date:03/31/2025 08:16:22 [...] IN THE MORNING Oral; Duration: 90 Active Night Splint AFO - L1930 1 wear when at rest; Duration: 30 days Active Tamsulosin HCl 0.4 MG Oral; Duration: 30 Days Active Sensipar 30 MG 1 tablet with food or after a meal Orally Once a day; Duration: 30 day(s) Active Stool Softener 50mg 1x day, 100mg 2x day Active Folic Acid 1 MG 1 tablet Orally Once a day; Duration: 30 day(s) Active Lasix 20 MG 1 tablet Orally Once a day; Duration: 30 day(s) Active Donepezil HCl 5 MG 1 tablet at bedtime Orally Once a day; Duration: 30 day(s) Active Rosuvastatin Calcium 5 MG 1 tablet Orally Once a day; Duration: 30 day(s) Active Doxazosin Mesylate 4 MG 1 tablet Orally Once a day; Duration: 30 day(s) Active Allopurinol 100 MG 1 tablet Orally Once a day; Duration: 30 day(s) Active Carvedilol 25 MG 1 tablet with food Orally Twice a day; Duration: 30 day(s) Active Ammonium Lactate 12 % APPLY TO AFFECTED AREA TWICE A DAY TO DRY AREAS OF SKIN ON FEET; Duration: 30 Active NIFEdipine ER 60 MG 1 tablet on an empty stomach Orally Once a day; Duration: 30 day(s) Active glipiZIDE 5 MG 1 tablet 30 minutes before breakfast Orally Once a day; Duration: 30 day(s) Not-Taking Extra Depth Orthopedic Shoes (1 Pair) with Customized Heat Molded Multidensity Innersoles (3 Pair) Dx: NIDDM/Polyneuropathy (E11.42), Hammertoe Foot Deformity (M20.41,M20.42), Preulcerative Skin Lesion(s) (L85.1); Duration: 365 days 07/17/2025 Active Magnesium 400 MG as directed Orally Not-Taking Envarsus XR 1 MG as directed Orally Active Multivitamin Active Entecavir 0.5 MG 1 tablet on [...] Deformity (M20.41,M20.42), Preulcerative Skin Lesion(s) (L85.1 Active Immunizations Vaccine Route Administration Date Status Comme nts Influenza Unknown 07/20/2023 Administered Influenza Unknown 07/21/2024 Administered Influenza Unknown 08/22/2025 Administered Social History Tobacco Use: Social History [...] disease due to type 2 diabetes mellitus ([id number]) 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.22) Active confirmed Problem Polyneuropathy due to type 2 diabetes mellitus (957023239) Type 2 diabetes mellitus with diabetic polyneuropathy (E11.42) Active confirmed Vital Signs Blood pressure diastolic 65 mm Hg 09/29/2025 Height 5ft6in in 09/29/2025 Blood pressure systolic 145 mm Hg 09/29/2025 Weight 176 lbs 09/29/2025 BMI 28.4 kg/m2 09/29/2025 Procedures Procedure Date Ordered Date Performed Result Body Sit e 39045-ATLXZFF NAIL, 6 OR MORE 12/26/2024 N/A 94376-AYPH SKIN LESIONS, 2 TO 4 12/26/2024 N/A 31878-ZXTRIPJ NAIL, 6 OR MORE 03/31/2025 N/A 25360-NUTC SKIN LESIONS, 2 TO 4 03/31/2025 N/A 18776-DJOTJNC NAIL, 6 OR MORE 09/29/2025 N/A 44114-IHZQ SKIN LESIONS, 2 TO 4 09/29/2025 N/A Encounters Encounter Location Date Provider Diagnosis [address] [address] 12/26/2024 Leticia Black Type 2 diabetes mellitus [...] Short Achilles tendon (acquired), left ankle M67.[address] [facility] [address] 03/31/2025 Leticia Black Type 2 diabetes mellitus [...] Short Achilles tendon (acquired), left ankle M67.[address] [address] 07/17/2025 Leticia Dwyer Type 2 diabetes mellitus with diabetic chronic kidney disease E11.22 ; Tinea unguium B35.1 ; Type 2 diabetes mellitus with diabetic polyneuropathy E11.42 ; Other hammer toe(s) (acquired), right foot M20.41 ; Other hammer toe(s) (acquired), left foot M20.42 and Ingrown nail L60.[address] [address] 09/29/2025 Leticiacandis Dwyer Type 2 diabetes mellitus with diabetic chronic kidney disease E11.22 ; Type 2 diabetes mellitus with diabetic polyneuropathy E11.42 and Tinea unguium B35.[address] [address] 01/02/2025 Leticia Dwyer [address] [address] 05/22/2025 Leticia Dwyer Assessments Encounter Date Diagnosis (ICD Code) Assessment Notes Treatment Notes Treatment Clinical Notes Section Notes 12/26/2024 Type 2 diabetes mellitus with diabetic polyneuropathy (ICD-10 - E11.42) 03/31/2025 Type 2 diabetes mellitus with diabetic polyneuropathy (ICD-10 - E11.42) 03/31/2025 Achilles tendinitis of left lower extremity (ICD-10 - M76.62) 07/17/2025 Type 2 diabetes mellitus with diabetic chronic kidney disease (ICD-10 - E11.22) 09/29/2025 Type 2 diabetes mellitus with diabetic chronic kidney disease (ICD-10 - E11.22) 09/29/2025 Type 2 diabetes mellitus with diabetic polyneuropathy (ICD-10 - E11.42) 09/29/2025 Tinea unguium (ICD-10 - B35.1) 07/17/2025 Tinea unguium (ICD-10 - B35.1) 03/31/2025 Type 2 diabetes mellitus with diabetic chronic kidney disease (ICD-10 - E11.22) 12/26/2024 Type 2 diabetes mellitus with diabetic chronic kidney disease (ICD-10 - E11.22) 12/26/2024 Tinea unguium (ICD-10 - B35.1) 03/31/2025 [...] of left foot (ICD-10 - M77.42) 12/26/2024 Metatarsalgia of left foot (ICD-10 - M77.42) 03/31/2025 Metatarsalgia, right foot (ICD-10 - M77.41) 12/26/2024 Pain in right foot (ICD-10 - M79.671) 03/31/2025 Pain of left heel (ICD-10 - M79.672) 12/26/2024 Pain in right ankle and joints [...] Treatment Pending Test Test Name Order Date 11301-JZOFAXC NAIL, 6 OR MORE 09/01/2022 58336-AHGKECR NAIL, 6 OR MORE 12/08/2022 15013-QYWAMSD NAIL, 6 OR MORE 03/09/2023 24214-KRRUVPB NAIL, 6 OR MORE 12/11/2023 31222-NALOQUU NAIL, 6 OR MORE 03/14/2024 83782-GQURSPS NAIL, 6 OR MORE 06/13/2024 37952-UTSOGIV NAIL, 6 OR MORE 09/19/2024 20178-HSUEDKF NAIL, 6 OR MORE 12/26/2024 26787-OPXJCEY NAIL, 6 OR MORE 03/31/2025 86488-RCNSDGG NAIL, 6 OR MORE 09/29/2025 34246-Amzsdbus Plate 03/09/2023 08755-Jhvuezrl Plate 03/14/2024 99743-BUAD SKIN LESIONS, 2 TO 4 06/13/20 24 25346-RPNP SKIN LESIONS, 2 TO 4 12/26/19 14053-DLAJ SKIN LESIONS, 2 TO 4 09/19/20 24 12864-NVNP SKIN LESIONS, 2 TO 4 03/14/20 24 60727-JOHI SKIN LESIONS, 2 TO 4 12/11/19 24 93661-XNPW SKIN LESIONS, 2 TO 4 03/09/20 23 90808-PDDZ SKIN LESIONS, 2 TO 4 12/08/19 23 87271-AHOL SKIN LESIONS, 2 TO 4 09/29/20 25 65872-USPW SKIN LESIONS, 2 TO 4 03/31/20 25 Next Appt Details Provider Name:Leticia Dwyer , 01/26/2026 11:00:00 AM, [address] [place], [address], Insurance Providers Payer Name Payer Address Payer Phone Subscriber Number Group Number Insured Name Patient Relationship to Insured Coverage Start Date Coverage End Date Medicare [facility] [employer] [address] [place] [address] [id number] Maninder Pack Self - patient is the insured [employer] [address] [place] [address] [phone] [id number] 1 [employer] Self - patient is [...]
[2025-10-28 07:01] LABS: MANUAL DIFF FLAG NO
[2025-10-28 07:29] LABS: Hematocrit 40.5 % (42.0-52.0); Hemoglobin 12.9 g/dl (14.0-18.0); Imm Gran Abs Auto 0.09 X10*3/uL (0.00-0.03); Imm Gran Pct Auto 2.9 % (0.0-0.4); Lymphocytes Absolute Auto 1.2 X10*3/uL (1.2-4.9); Mean Corpuscular HGB Conc 31.9 g/dl (31.0-36.0); Mean Corpuscular Hemoglobin 29.1 pg (27.0-33.0); Mean Corpuscular Volume 91.2 fL (80.0-98.0); NRBC Abs Auto 0.000 X10*3/uL (0.0-0.012); NRBC Pct Auto 0.0 /100WBC (0.0-0.2); Platelet Count 187 X10*3/uL (160-400); Red Blood Count 4.44 X10*6/uL (4.60-5.80); White Blood Count 3.1 X10*3/uL (4.8-10.8)
== END 2025-10-28 06:53 ==
LOC: HO.LAB 06:52
PROVIDERS: PCP Internal Medicine; Visit Provider Internal Medicine
DX: E78.00 Pure hypercholesterolemia, unspecified (principal)
CPT/HCPCS: 36415; 85025

== ENCOUNTER 2025-10-30 10:45 | Outpatient (AMB) | payer MEDICARE, SELFPAY ==
[2025-10-30 10:49] VITALS: BP 144/50; PULSE 69; RESP 18; O2SAT 97; BMI 27.8
--- NOTE | 2025-10-30 10:49 | A.OFFPC_ITS ---
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: No Accompanied by: Self / Same As Patient Allergies rosuvastatin (From Crestor) Allergy (Verified 10/30/25 10:50) Muscle Pain atorvastatin (From Lipitor) Adverse Reaction (Verified 10/30/25 10:50) Muscle Pain Medication List - Last Reconciled 10/30/25 by Ramone Cali MD acetic acid 2% 5 drps otic (ear) right TID allopurinol 100 mg PO DAILY ammonium lactate 12% 1 appl topical BID blood sugar diagnostic (FreeStyle Lite Strips) As directed blood-glucose meter (FreeStyle Lite Meter kit) As directed carvedilol 25 mg PO BID cinacalcet 30 mg PO DAILY clotrimazole 1% 1 appl topical BID 2 weeks docusate sodium 100 mg PO BID donepezil 10 mg PO BEDTIME 90 days doxazosin 2 mg PO BEDTIME empagliflozin (Jardiance) 10 mg PO DAILY ezetimibe 10 mg PO DAILY folic acid 1 mg PO DAILY gabapentin 300 mg PO DAILY hydrocortisone acetate (Anucort-HC) 25 mg OK BID PRN lancets (FreeStyle Lancets) As directed lisinopril 40 mg PO DAILY multivitamin with minerals 1 tab PO DAILY mycophenolate sodium 360 mg PO DAILY mycophenolate sodium 180 mg PO DAILY@1700 oushddtm-dpkcmyoku-DY 3.5-10,000-1 mg/mL-unit/mL-% 4 drps otic (ears) Q8H 10 days nifedipine ER 60 mg PO BID spironolactone 25 mg PO DAILY tamsulosin 0.8 mg PO QPM torsemide 60 mg PO BID Tobacco use date assessed: 10/30/25 Fall risk assessment: No Falls in past year Last assessed Fall Risk: 10/30/25 Dental Screening Dental Screen Date: 10/30/25 Did you have a dental visit in the last 12 months?: Yes Did you have a dental problem in the last 6 months where you did not have access to dental care?: No Was dental information given to patient?: Patient has dentist HPI HPI Comments History of Present Illness Details The patient is a 75 year old male with PMH of T2DM, Obesity, HTN, HLD, renal transplant on Mycophenolate, Anemia, dementia, YANETH on Cpap, presenting for management of a fungal nail infection, and worsening sciatica. The patient reports having brittle, yellowish nails, which he believes started after working outside in the yard. He denies trying any creams for this condition previously. The patient also has a history of right-sided sciatica, characterized by a burning pain, for which he has been taking gabapentin 300 mg for over a year. Despite the medication, his symptoms are worsening, noting pain in his back upon waking in the morning. He reports no prior imaging, such as an MRI, or physical therapy for this condition. Review of lab results from October 28 shows stable anemia with a hemoglobin of 12.9 g/dL. His creatinine is 1.74 mg/dL, which is stable for his post-transplant status, and his INR is normal. His LDL cholesterol improved to 121 mg/dL from 169 mg/dL in February 2024. Calcium was slightly elevated at 10.9 mg/dL, and his vitamin B12 level is high, both of which are noted as stable findings. [facility] Medical History Refusal of blood transfusions as patient is Nondenominational YANETH (obstructive sleep apnea) Diabetes Chronic kidney disease Anal fissure Hypercholesterolemia Hepatitis C virus infection cured after antiviral drug therapy Obesity (BMI 30-39.9) BPH (benign prostatic hyperplasia) Pulmonary nodule, left Right patella fracture Cervical spondylosis Anemia HTN (hypertension) Kidney failure Surgical History History of esophagogastroduodenoscopy (EGD) History of renal transplant History of colonoscopy History of cholecystectomy Fistula of artery Family History Father No problems noted. Mother No problems noted. Brother No problems noted. Brother No problems noted. Social History Household Members: Spouse Housing: House Do you presently have visiting nurse or other home services: No Alcohol intake: former Comment: quit 2004 Patient Tobacco Use Status: Former Tobacco user Tobacco use type: Cigarette Years Smoked: quit 1995 e-Cigarette/Vaping Use: Never Used Second Hand Smoke Exposure: Yes Advance Directives Date on File: 02/04/21 service: No Current occupational status: retired Cognitive needs: No Hearing needs: No Vision needs: Yes Questionnaire Thrive Questionnaire Date Thrive assessed: 10/30/25 I am a: Patient What is your living situation today?: I have a steady place to live Within the past 12 months, did the food you bought not last and you didn't have the money to get more?: Never true Within the past 12 months, did you worry whether your food would run out before you got money to buy more?: Sometimes True Do you have trouble paying for medicines?: No Do you have trouble getting transportation to medical appointments?: No Do you have trouble paying your heating and electricity bill?: No Do you have trouble taking care of your child, family member or friend?: No Do you have trouble with day-to-day activities such as bathing, preparing meals, shopping, managing finances, etc.?: No Are you currently unemployed and looking for a job?: No Are you interested in more education?: No Please select the resources that you would like help with: Paying for medicine Currently or been in a relationship where the following occur: No concerns reported THRIVE Score: 1 LESA-7 AMB Questionnaire LESA-7 Date LESA - 7 assessed: 07/25/25 Source: Developed by Drs. Giuliano العلي, Nguyen Bañuelos, Tristan Perales and colleagues, with an educational gabby from [employer]. Review of Systems Const Details: As per HPI. Physical exam (Primary Care) Vital Signs: Last Vital Signs Pulse 69 10/30/25 10:49 Resp 18 10/30/25 10:49 BP 144/50 H 10/30/25 10:49 Pulse Ox 97 10/30/25 10:49 Oxygen Delivery Method Room Air 10/30/25 10:49 BMI result Body Mass Index 27.8 Tobacco/Smoking Status: Tobacco use Status Tobacco use date assessed 10/30/25 10/30/25 10:54 Patient Tobacco Use Status Former Tobacco user 10/30/25 10:54 Tobacco use type Cigarette 10/30/25 10:54 e-Cigarette/Vaping Use Never Used 10/30/25 10:54 Thrive Assessment: Date of Thrive Assessment Date Thrive assessed 10/30/25 10/30/25 10:54 Currently or been in a relationship where the following occur: No concerns reported Const Other: Pertinent findings are in BOLD GENERAL APPEARANCE NAD, activity normal for age, well developed/ well nourished, no cyanosis, pallor, or diaphoresis. EYES lids/conjunctiva normal. EARS/NOSE/THROAT Mucous membranes moist, nares normal, lips/teeth normal uvula midline without oral pharyngeal erythema, exudate or swelling TMs normal bilaterally. No lymphangitis/lymphedema. HEAD/NECK normocephalic atraumatic, no facial trauma, neck is supple. RESPIRATORY respiratory effort normal, speaks in full sentences, no tripod position, no accessory muscle use. Lungs clear to auscultation without rhonchi, wheezes, rales CARDIAC Regular rate and rhythm, no edema. ABDOMINAL Soft, ND/NT. No evidence of fluid wave. No pulsatile masses on exam, rebound tenderness, Corbett sign or pain over Mcburney's point. MUSCLES/EXTREMITIES No abnormal range of motion, no swelling. SKIN Warm, pink and dry. No rashes, dermatoses, petechiae or lesions. Yellow, brittle nails in both hands. NEUROLOGICAL Speech is clear and appropriate. Normal level of consciousness. Gait and coordination are normal. 5/5 strength in all extremities. PSYCH Normal mood and affect. Judgement/competence is appropriate Coding Level of Care Code Est Pt Level 4 (61614) Diagnoses Sciatica of right side M54.31 Laterality: right Onychomycosis B35.1 Time Spent (min) 30 Assessment & Plan Assessment & Plan (1) Sciatica: Code(s): M54.30 - Sciatica, unspecified side Category: Medical Qualifiers: Laterality: right Qualified Code(s): M54.31 - Sciatica, right side Plan: - Symptoms of burning pain are worsening despite taking gabapentin. - The patient will continue taking gabapentin for now. - A referral will be placed to orthopedics for further evaluation. - The patient declined physical therapy at this time, preferring to first consult with the specialist. (2) Onychomycosis: Code(s): B35.1 - Tinea unguium Category: Medical Plan: - The patient reports a fungal infection on his nails and cannot take oral medication due to his kidney transplant. - An antifungal cream (clotrimazole) was prescribed. - He is instructed to apply the cream twice daily for four weeks. Plan I reviewed the lab results from October with the patient and noted that findings such as anemia, creatinine, and calcium levels are stable. I highlight ed the improvement in his LDL cholesterol. We discussed his worsening right- sided sciatica; I am placing a referral to orthopedics for further evaluation. He will continue his current dose of gabapentin. The patient wants to see the specialist before considering physical therapy. I also prescribed an antifungal cream for his nail fungus, explaining that oral medication is not an option due to his history of a kidney transplant. I confirmed his upcoming annual wellness visit with Dr. Anthony and advised that no new lab work is needed at this time. Orders: Referrals Orthopedics Referral M54.30 - Sciatica, unspecified side Medications: New clotrimazole 1% (Antifungal (clotrimazole)) 1 appl topical BID 45 grams 1RF 4 weeks Discontinued clotrimazole 1% apply twice daily to R ear Discontinued Reason: Duplicate 1 appl topical BID 2 weeks 10 mL 0RF
== END 2025-10-30 12:12 | disposition home or self-care (01) ==
LOC: HO.HMCH 10:46
PROVIDERS: PCP Internal Medicine; Visit Provider Internal Medicine
DX: M54.31 Sciatica, right side (principal); B35.1 Tinea unguium

== ENCOUNTER → 2025-10-30 10:45 | Outpatient (BNVA) | payer MEDICARE, SELFPAY | PROVIDERS: PCP Internal Medicine; Visit Provider Internal Medicine | DX: M54.31 Sciatica, right side (principal); B35.1 Tinea unguium; Z87.891 Personal history of nicotine dependence; E11.9 Type 2 diabetes mellitus without complications | CPT/HCPCS: 99212 ==